=== PATIENT | female | born 1945 | race Caucasian/White ===

== ENCOUNTER 2016-03-27 10:13 | Day surgery (SDC) | payer MEDICARE, OTHER ==
[~2016-03-27] VITALS: Ht 172.7 cm; Wt 97.5 kg
[~2016-03-27 10:13] MED LIST: CALC-697 PO; CYCL10TA9 PO; EST30C; HYDR-700; MED FOR CHOLESTEROL; MELA1TAB16 PO; MELA2.5T PO; MELO7.5O2 PO; NF-ESOM40C PO; PANT40TA2 PO; PNT40TEC PO; PRAV20TA3 PO; SUCR1TAB; SUCR1TAB23 PO; SUCR1TAB36 PO; TRAM50TA2 PO
[2016-03-27] MEDS ORDERED: NS IV 1000 ML 1,000 ML ONE (10:15)
--- OUTSIDE RECORDS SUMMARY | 2016-03-27 10:18 | XMS REPORT | Continuity of Care Document ---
Author Author [facility] Organization [facility] Address Unknown Phone Unavailable Care Team Providers Care Mental Health Orderly Name Role Phone Presley Soria PCP [phone] Source Comments Some departments are not documenting in the electronic medical record. If you do not see the information that you expected, contact Release of Information in the Health Information Management department at [phone] for further assistance in locating additional records.[facility] Active Allergies and Adverse Reactions Allergen Noted Date Severity Reactions Comments Actifed 05/04/2014 PALPITATIONS Hydrocodone 05/04/2014 ITCHING Morphine 05/04/2014 SEE COMMENTS unknown Current Medications Prescription Sig. Disp. Refills Start End Date Status Date sucralfate (CARAFATE) 1 Take 1 g by mouth every 6 Active gram tablet hours. pantoprazole DR Take 40 mg by mouth Active (PROTONIX) 40 mg tablet daily. magnesium chloride (MAG Take 535 mg by mouth Active DELAY) 64 mg tablet daily. melatonin 3 mg tab Take 3 mg by mouth at Active bedtime daily. cyclobenzaprine Take 10 mg by mouth three Active (FLEXERIL) 10 mg tablet times daily as needed for Muscle Cramps. 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) Social History Tobacco Use Types Packs/Day Years Used Date Former Smoker Cigarettes 0.25 10 Started: 03/25/1980 Alcohol Use Drinks/Week oz/Week Comments Yes 0 Standard 0.0 4-6 drinks/year drinks or equivalent Last Filed Vital Signs Vital Sign Reading Time Taken Blood Pressure 125/64 01/06/2016 10:23 AM CDT Pulse 66 01/06/2016 10:23 AM CDT Temperature 36.4 C (97.5 F) 01/06/2016 10:23 AM CDT Respiratory Rate 18 11/14/2015 2:40 PM CDT Height 1.702 m (5' 7.01") 01/06/2016 10:23 AM CDT Weight 97.342 kg (214 lb 9.6 oz) 01/06/2016 10:23 AM CDT Body Mass Index 33.6 01/06/2016 10:23 AM CDT Oxygen Saturation 100% 01/06/2016 10:23 AM CDT Plan of Care Date Type Specialty Providers Description 07/06/2016 Appointment Oncology Janette Levy PA [address] [facility] [address] [place] [address] [phone] (Fax) Health Maintenance Due Date Last Done Comments Hepatitis C Screening 1945 Physical (Comprehensive) 1954 Exam Pertussis Vaccine 1958 Tetanus Vaccine 1964 Breast Cancer Screening 1987 Colorectal Cancer 1997 Screening Shingles Vaccine 2007 Osteoporosis Screening 2012 Prevnar/Pneumovax (#1) 2012 Influenza Vaccine 11/24/2015 Results from Last 3 Months Not on file
--- OUTSIDE RECORDS SUMMARY | 2016-03-27 10:18 | XMS REPORT | Continuity of Care Document ---
Author Author [facility] Organization [facility] Address Unknown Phone Unavailable Care Team Providers Care Refining Equipment Operator Name Role Phone Presley Soria PCP [phone] Source Comments Some departments are not documenting in the electronic medical record. If you do not see the information that you expected, contact Release of Information in the Health Information Management department at [phone] for further assistance in locating additional records.The [...] Description 07/06/2016 Appointment Oncology Janette Levy PA [address] [facility] [address] [place] [address] [phone] (Fax) Health Maintenance Due Date Last Done Comments Hepatitis C Screening 1945 Physical (Comprehensive) 1954 Exam Pertussis Vaccine 1958 Tetanus Vaccine 1964 Breast Cancer Screening 1987 Colorectal Cancer 1997 Screening Shingles Vaccine 2007 Osteoporosis Screening 2012 Prevnar/Pneumovax (#1) 2012 Influenza Vaccine 11/24/2015 Results from Last 3 Months Not on file
[2016-03-27 10:40] VITALS: BP 175/85
[2016-03-27] MEDS ORDERED: NS IV 1000 ML 1,000 ML IV STA (10:42)
[2016-03-27] MEDS ORDERED: HURRICAINE EXT TUBE (BENZOCAINE) XX ONE (10:45)
[2016-03-27] MEDS ORDERED: proPOfol 200 MG/20 ML (DIPRIVAN) VIAL IV ONE (15:48)
[2016-03-27] MEDS ORDERED: MIDAZOLAM 2 MG/2 ML (VERSED) VIAL ONE (15:48)
--- NOTE | 2016-03-27 16:01 | Progress Note-Pre Operative ---
Pre-Operative Progress Note H&P Reviewed The H&P was reviewed, patient examined and no changes noted. Date H&P Reviewed: Mar 27, 2016 Time H&P Reviewed: 16:01 Pre-Operative Diagnosis: gerd, history of fry's RICCARDO RUIZ DO Mar 27, 2016 4:01 pm
--- NOTE | 2016-03-27 16:20 | Discharge Inst-Simple/Standard ---
Discharge Inst-Standard Patient Instructions/Follow Up Plan of Care/Instructions/FU: Follow up with Dr. Wilson in 3 weeks Activity as Tolerated: Yes Discharge Diet: No Restrictions JUAN SULLIVAN APRN Mar 27, 2016 16:20
[2016-03-27] MEDS ORDERED: HURRICAINE EXT TUBE (BENZOCAINE) ONE (16:21)
--- NOTE | 2016-03-27 16:21 | Progress Note-Post Operative ---
Post-Operative Progess Note Pre-Operative Diagnosis gerd, history of fry's Post-Operative Diagnosis antral polyps, fry's esophagus Post-Op Procedure Note Date of Procedure: Mar 27, 2016 Name of Procedure: egd with biopsies of esophagus Procedure Note/Findings see note Anesthesia Type per production supv Estimated blood loss (mL): none Specimen(s) collected esophagus RICCARDO RUIZ DO Mar 27, 2016 4:21 pm
[2016-03-27 16:45] VITALS: BP 136/79
[2016-03-27 17:10] VITALS: BP 154/81
[2016-03-27] MEDS ORDERED: ONDANSETRON 4 MG/2 ML (SDV) Z0FRAN ONE (17:15)
[2016-03-27 18:00] VITALS: BP 164/84
[2016-03-27] MEDS ORDERED: ONDANSETRON 4 MG/2 ML (SDV) Z0FRAN IVP ONE (18:00)
[2016-03-27] MEDS ORDERED: PROMETHAZINE INJ 25 MG/ML (PHENERGAN) AMP IVP ONE (18:00)
[2016-03-27 18:31] VITALS: BP 164/84
--- NOTE | 2016-03-28 09:40 | OPERATIVE REPORT ---
PROCEDURE PHYSICIAN: RICCARDO RUIZ DATE OF PROCEDURE: 03/27/2016 PREOPERATIVE DIAGNOSIS: 1. GERD. 2. History of Means's. POSTOPERATIVE DIAGNOSES: 1. Pyloric polyps. 2. Means's esophagus. PROCEDURE: EGD biopsies of the esophagus. SURGEON: Steve. ANESTHESIA: Per KNEE BOLTER. ESTIMATED BLOOD LOSS: None. COMPLICATIONS: None. INDICATIONS: The patient is a 70-year-old female who had previous wrap for Means's esophagus. The patient had previous biopsy demonstrated Means's esophagus, no dysplasia. The patient understands the risks and benefits of the procedure and wishes to proceed with procedure. Consent was signed on the chart. PROCEDURE: The patient was taken to the endoscopy suite, placed in left lateral recumbent positions. A timeout was performed. The scope was then inserted in the mouth, down the esophagus, stomach and into the duodenum. The duodenum had no polyps, masses, or ulcerations. The scope was slowly retracted back into the pylorus which demonstrated multiple small polyps. The scope was slowly retracted back into the stomach where it was further insufflated. No significant changes to the stomach. The scope was retroflexed noting evidence of a wrap; it looks like there may be slight recurrence of the hiatal hernia. The scope was returned to its normal position slowly withdrawn back to the esophagus. A very short segment of the area that is suggestive of Means's esophagus. Biopsies of this area were obtained. The scope was then slowly retracted back noting no other pathology. The patient tolerated the procedure well without any complications. She was taken to recovery room in stable condition. RECOMMENDATIONS: The patient will continue on current medication regimen. We will consider gastroenterology consultation or would repeat EGD and 1 to 2 years. Job ID: [id number] Dictated Date: 03/27/2016 16:24:46 Operations Vice President Date: 03/28/2016 09:31:56 / tima
== END 2016-03-27 18:30 | disposition home or self-care (01) ==
LOC: SDC 10:13
PROVIDERS: ATTEND Surgery
DX: K21.9 Gastro-esophageal reflux disease without esophagitis (principal); K31.7 Polyp of stomach and duodenum; K29.50 Unspecified chronic gastritis without bleeding

== ENCOUNTER → 2017-06-04 | Outpatient (CLI) | payer MEDICARE ==
--- NOTE | 2017-06-04 19:06 | Diagnostic Imaging Report ---
INDICATION: Digital mammogram bilateral screening. This study was compared to the prior exam of 03/12/16, 03/08/15 and 03/04/14. At this time, there are no current complaints. The current study was also evaluated with a Computer Aided Detection (CAD) system. FINDINGS: There are scattered fibroglandular densities in both breasts which could obscure a lesion. Overall, there does not appear to have been any significant change when compared to the prior exam. No primary or secondary sign of malignancy is noted. IMPRESSION: There is no radiographic evidence for malignancy. ACR BI-RADS Category 1: Negative. Result letter will be mailed to the patient. Note: At least 10% of breast cancer is not imaged by mammography. Dictated by: Dictated on workstation # [id number]
== END ==
LOC: RAD 09:52
PROVIDERS: ATTEND Nurse Practitioner Family
DX: Z12.31 Encounter for screening mammogram for malignant neoplasm of breast (principal)
CPT/HCPCS: 77067

== ENCOUNTER → 2017-09-27 | Outpatient (CLI) | payer MEDICARE, MEDICAID ==
[~2017-09-27] MED LIST changes: +AMOX-358 PO; +APIX5TAB PO; +CELE-63 PO; +GABA-488 PO; -HYDR-700; +HYDR-700 PO; +MELA5TAB14 PO; +MELA5TAB19 PO; +METF500T5 PO; +NITR-65 PO; +NITR0.4T42 SL; +OXYC-529 PO; +PHEN-640 PO; +POTA10TA36 PO
[2017-09-27 10:37] LABS: BUN/CREATININE RATIO 15; CREATININE SERUM 0.86 MG/DL (0.60-1.30); GFR ESTIMATED > 60
--- NOTE | 2017-09-27 12:28 | Diagnostic Imaging Report ---
PROCEDURE: MRI right joint lower extremity without contrast. TECHNIQUE: Multiplanar, multisequence non contrast-enhanced MRI of the right lower extremity was accomplished. INDICATION: Right hip replacement on 07/16/2017. Patient complains of right hip pain extending into the right leg. FINDINGS: Postsurgical changes of right hip arthroplasty are noted. There is a large amount of artifact from the patient's right hip prosthesis, severely compromising evaluation of the right hip. Larger [id number] sequences through the pelvis demonstrate normal marrow signal of the sacrum and left hip. The visualized rami are unremarkable. No definite free pelvic fluid is seen. No mass is identified. IMPRESSION: Severely compromised evaluation of the right hip due to patient's right hip prosthesis creating a large amount of artifact. No acute features seen. Plain films of the right hip could be obtained. Consideration could be given to performance of CT of the right hip if patient's symptoms persist. Dictated by: Dictated on workstation # [id number]
== END ==
LOC: RAD 09:57
PROVIDERS: ATTEND Nurse Practitioner Family
DX: T84.84XA Pain due to internal orthopedic prosthetic devices, implants and grafts, initial encounter (principal)
CPT/HCPCS: 36415; 73721; 82565; 84520

== ENCOUNTER 2017-10-14 00:08 | Inpatient (IN) | payer MEDICARE, MEDICAID ==
[~2017-10-14] VITALS: Ht 172.7 cm; Wt 91.2 kg
[~2017-10-14 00:08] MED LIST changes: -AMOX-358 PO; -APIX5TAB PO; -CELE-63 PO; -GABA-488 PO; -MELA5TAB14 PO; -MELA5TAB19 PO; -METF500T5 PO; -NITR-65 PO; -NITR0.4T42 SL; -OXYC-529 PO; -PHEN-640 PO; -POTA10TA36 PO
--- OUTSIDE RECORDS SUMMARY | 2017-10-14 00:15 | XMS REPORT ---
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 Active 237883544 Problem Dyshidrotic eczema L30.1 Active 566767453 Problem Type 2 diabetes mellitus without complication, without long-term current use of insulin E11.9 Active 705508459 Problem Body mass index (BMI) of 30.0-30.9 in adult Z68.30 Active 610788239 Problem CAD (coronary artery disease) I25.10 Active 79838584 Problem GERD (gastroesophageal reflux disease) K21.9 Active 911601491 Problem Sciatica of right side M54.31 Active 83383167 Problem Trochanteric bursitis of right hip M70.61 Active 411182400520902 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 726808364 Problem Syndrome X, 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 Active 915170870 Problem Seborrheic keratoses L82.1 Active 252283378 Problem Hyperlipidemia E78.5 Active 60495890 ALLERGIES Substance Reaction Event Type Date Status Pentazocine-Naloxone itching Drug Allergy May, Active Cipro Unknown Drug Allergy May, Active Actifed palpitations Drug Allergy May, Active Oxycodone unable to take more than 1 Drug Allergy May, Active Morphine Abdominal pain with IV form Drug Allergy May, Active ENCOUNTERS Encounter Location Date Diagnosis [facility] [address], [place] [address] Oct, [place] [address] [place] [id number] [place] [address]127[address] 4[address] Sep, [facility] [address], [place] [address] Sep, Pain in right hip M25.551 [place] [address] [place] [id number] [place] [address] 08722- 1311 Sep, [place] [address] [address] [id number] [place] [address] 62389- 6346 Aug, Acute cystitis with hematuria N30.01 [place] [address] [address] [id number] [place] [address] 15820- 8293 Aug, Type 2 diabetes mellitus without complication, without long- term current use of insulin E11.9 ; Type 2 diabetes mellitus with diabetic neuropathic arthropathy, 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 ; Hyperlipidemia E78.5 ; CAD (coronary artery disease) I25.10 ; 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 ; Other obesity due to excess calories E66.09 ; Body mass index (BMI) of 30.0-30.9 in adult Z68.30 ; Syndrome X, 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 ; Pain in right hip M25.551 ; Anxiety F41.9 ; Angina pectoris I20.9 and Vaginal cancer C52 [place] [address], [place] [address] Aug, [place] [address], [place] [address] Aug, [place] [address] [place] [id number] [place] [address] 97591- 8757 Aug, Vaginal candidiasis B37.3 and Vaginal itching L29.8 [place] [address], [place] [address] 229[address] Aug, Dysuria R30.0 and Acute cystitis with hematuria N30.01 [place] [address] [place] [address] 56559- 1719 July, [place] [address] [address]- 3027 July, [place] [address] [address] [id number] [place] [address] 07244- 5501 July, [place] [address] [address]- 0627 Jun, [place] [address] [address] [id number] [place] [address] 97694- 4534 Jun, [facility] [place] [address] [address] Jun, Right anterior knee pain M25.561 [place] [address] 06139- 3782 Jun, [place] [address] [address] [id number] [place] [address] 52236- 9482 Jun, Type 2 diabetes mellitus with diabetic neuropathic arthropathy, 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 [place] [address] [address] [id number] [place] [address] 06576- 1908 May, Acute non-recurrent maxillary sinusitis J01.00 and Acute suppurative otitis media of left ear without spontaneous rupture of tympanic membrane, recurrence not specified H66.002 [facility] [place] [address] [id number] [place] [address] 38234 -8404 May, Viral upper respiratory tract infection J06.9 [place] [address] [address] [id number] [place] [address] 49849- 7422 Apr, [place] [address] [address] [id number] [place] [address] 86112- 3671 Apr, Type 2 diabetes mellitus with diabetic neuropathic arthropathy, 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 ; Hyperlipidemia E78.5 ; Seborrheic keratosis L82.1 ; Angina pectoris I20.9 ; 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 ; Polyneuropathy G62.9 ; Screening breast examination Z12.31 ; GERD ( gastroesophageal reflux disease) K21.9 ; Vaginal cancer C52 ; Trochanteric bursitis of right hip M70.61 ; Sciatica of right side M54.31 ; Other obesity due to excess calories E66.09 and Body mass index (BMI) of 32.0-32.9 in adult Z68.[address] [address]35- 8061 09 Apr, 2017 Type 2 diabetes mellitus without complication, without long- term current use of insulin E11.[address] 48738- 8855 02 Apr, 2017 Papule R23.8 and Actinic keratosis L57.0 [facility] [address] [address] 11 Mar, 2017 Cough R05 ; Encounter for immunization Z23 ; Other viral agents as the cause of diseases classified elsewhere B97.89 and Acute upper respiratory infection, unspecified J06.[address] 91316- 7891 Jan, Migraine without status migrainosus, not intractable, unspecified migraine type G43.[address] 80141- 4325 Sep, [address] 02777- 1639 Sep, Type 2 diabetes mellitus without complication, without long- term current use of insulin E11.9 ; Dehydration, mild E86.0 and Dyshidrotic eczema L30.[address] 32856- 2235 Sep, [address] 43039- 4893 Aug, Migraine without status migrainosus, not intractable, unspecified migraine type G43.909 [place] [address] [id number] [place] [address] 05674- 2681 July, [address] 53888- 0414 Jun, Medicare annual wellness visit, subsequent Z00.00 ; Hyperlipidemia E78.5 ; CAD (coronary artery disease) I25.10 and Vaginal cancer C52 [address] 55715- 2204 Jun, Sciatica M54.30 ; Pain in right hip M25.551 ; Dyshidrotic eczema L30.1 ; Candidiasis of breast B37.89 ; Right anterior knee pain M25.561 ; Hyperlipidemia E78.5 and Encounter for immunization Z23 [address] 12342- 5130 May, Ganglion cyst of joint of finger of left hand M67.[address] 24903- 0060 May, Migraine without status migrainosus, not intractable, unspecified migraine type G43.[address] 45783- 9217 May, [address] 33099- 2585 Apr, Skin lesion of back L98.9 and Encounter for immunization Z23 [address] 66744- 0828 Mar, Candidal dermatitis B37.2 ; Seborrheic keratoses L82.1 ; Polyneuropathy G62.9 and Dysuria R30.0 [facility] [address] [place] [id number] [place] [id number] Mar, Dental examination Z01.[address] 36970- 6117 Mar, Neuritis M79.2 [place] [address] [place] [address] 77652- 8420 Feb, Drug allergy Z88.9 [place] [address] [address] [id number] [place] [address] 77678- 6370 Feb, Dysuria R30.0 [place] [address] [address] [id number] [place] [address] 16021- 0866 Feb, Acute cystitis with hematuria N30.01 [place] [address] [address] [id number] [place] [address] 69193- 4672 Feb, Dysuria R30.0 and Acute cystitis with hematuria N30.01 [place] [address] [id number] [place] [address] 96479- 2997 Feb, Angina pectoris I20.9 ; Finger pain, left M79.645 ; 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 ; GERD (gastroesophageal reflux disease) K21.9 ; Pain in right hip M25.551 ; Pain in left hip M25.552 and Encounter for screening mammogram for breast cancer Z12.31 [place] [address] [address] [id number] [place] [address] 80033- 0911 Dec, Right hip pain M25.551 [place] [address] [address] [id number] [place] [address] 88452- 1168 13 Nov, 2015 GERD (gastroesophageal reflux disease) K21.9 ; Vaginal cancer C52 ; Pain in right hip M25.551 and Pain in left hip M25.552 [place] [address] [address] [id number] [place] [address] 72144- 4955 Oct, Squamous cell carcinoma C80.1 [place] [id number] [place] [address] 30651- 9953 Oct, Skin lesions L98.9 and Encounter for well woman exam Z01.419 [place] [address] [address] [id number] [place] [address] 66688- 0161 Oct, [place] [address] [address] [id number] [place] [address] 19399- 8244 Sep, [facility] [place] [address] [address]27 Aug, Atopic dermatitis, unspecified type L20.9 and Tick bite, initial encounter W57.XXXA [facility] [address] [address] -8705 Aug, [place] [address] 23850- 3166 July, Pre-procedural laboratory examination Z01.[address] 76555- 1691 July, Migraine without status migrainosus, not intractable, unspecified migraine type G43.909 ; Barretts esophagus without dysplasia K22.70 ; Sciatic nerve pain, left M54.32 and Localized swelling, mass and lump, head R22.0 [place] [address] 15099- 8100 May, [place] [address] 86992- 4083 May, [facility] [place] [address] 03393 -7649 May, Unspecified fall, initial encounter W19.XXXA ; Unspecified place in unspecified non-institutional (private) residence as the place of occurrence of the external cause Y92.009 ; Mid back pain M54.9 ; Rib pain on right side R07.81 ; Buttock pain M79.1 and Post-traumatic headache, unspecified , not intractable G44.[address] 59496- 5490 10 Apr, 2015 Hypercholesteremia E78.0 ; Chest discomfort R07.89 ; 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 and History of sciatica Z86.[address] 68526- 8717 Mar, Calculus of left kidney N20.0 ; Hyperlipidemia E78.5 ; Degeneration disease of medial meniscus, 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 ; Right knee pain M25.561 ; Sciatica M54.30 ; GERD (gastroesophageal reflux disease) K21.9 and 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 [place] [address] 55178- 7100 Mar, [place] [address] 47791- 2188 Mar, [place] [address] 88747- 9063 Mar, [address] 94593- 1154 Mar, Plantar fasciitis M72.[address] 27032- 0850 Mar, Degeneration disease of medial meniscus, 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 ; Right knee pain M25.561 ; Sciatica M54.30 ; GERD ( gastroesophageal reflux disease) K21.9 and 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 [place] [address] 54192- 2772 Feb, [address] 48590- 6900 Feb, Osteopenia M85.[address] 90084- 7733 15 Feb, 2015 Screening for malignant neoplasm of breast Z12.39 and Encounter for screening mammogram for malignant neoplasm of breast Z12.[address] 03942- 7396 Feb, Hip pain M25.[address] 49244- 1940 Feb, [place] [address] 72516- 9366 Feb, Arthralgia of right hip M25.551 ; Sciatica M54.30 ; GERD ( gastroesophageal reflux disease) K21.9 ; 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 ; CAD ( coronary artery disease) I25.10 and Hyperlipidemia 272.4 [facility] [address] [address] [id number] [place] [address] 34624 -3629 Jan, Pharyngitis J02.9 ; Body aches R52 ; Cough R05 and Sinusitis J32.9 [facility] [address] 91307- 1119 Nov, Contusion of foot 924.20 and Plantar fasciitis 728.71 [facility] [address] [id number] Oct, Dental examination V72.2 [facility] [address] 35677- 7859 Oct, [facility] [address] 15930- 0997 Oct, Coronary artery disease 414.00 [facility] [address] 45028- 3840 Oct, Zoster 053.9 [facility] [address] [place] [id number] [place] [address] 69912- 0808 Sep, Pain in joint, ankle and foot 719.47 ; 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.85 ; Cervicalgia 723.1 ; Pain in joint, shoulder region 719.41 ; Coronary artery disease 414.00 and Need for shingles vaccine V04.89 [facility] [address] [place] [id number] [place] [address] [id number] Sep, Dental examination V72.2 [facility] [address] 30172- 0343 Sep, [facility] [address] 28302- 2193 Aug, [facility] [address] [id number] [id number] July, Dental examination V72.2 [facility] [address] [address] [id number] [place] [address] 71806- 4826 July, Cough 786.2 [facility] [address], [place] [address]- 8341 July, Sinusitis 473.9 and Means esophagus 530.85 [facility] [address], [place] [address]- 9491 Jun, [facility] [address] [id number] [place] [address] 49751- 1506 Jun, [facility] [id number] [address]- 8333 May, [facility] [id number] [place] [address] 92085- 6470 May, [facility] [address], [place] [address]- 4725 May, [facility] [address] [place] [address] 67447- 0016 May, [facility] [address], [place] [address]- 4761 May, [facility] [address], [place] [address]- 8682 May, [facility] [address], [place] [address]- 3006 May, [facility] [address], [place] [address]- 3420 May, [facility] [address], [place] [address]- 2566 Apr, [facility] [address], [place] [address]- 9186 Apr, [facility] [place] [facility] [address] [id number] [place] [address]- 6476 Apr, [facility] [place] [facility] [address] [id number] [place] [address]- 0343 Mar, [facility] [place] [facility] [address] [id number] [place] [address]- 7372 Mar, [facility] [place] [facility] [address] [id number] [place] [address]- 0378 Mar, [facility] [place] [facility] [address] [id number] [place] [address]- 4122 Mar, [facility] [place] [facility] [address] [id number] [place] [address]- 3206 Feb, [facility] [place] [facility] [address] [id number] [place] [address]- 7662 Feb, [facility] [place] [facility] [address] [id number] [place] [address]- 6718 Feb, [facility] [place] [facility] [address] [id number] [place] [address]- 2644 Feb, [facility] [place] [facility] [address] [id number] [place] [address]- 5788 Feb, [facility] [place] [facility] [address] [id number] [place] [address]- 7548 Feb, [facility] [place] [facility] [address] [id number] [place] [address]- 3394 Feb, [facility] [place] [facility] [address] [id number] [place] [address]- 0246 Jan, [facility] [place] [facility] [address] [id number] [place] [address]- 5076 Jan, [facility] [place] [facility] [address] [id number] [place] [address]- 7252 Jan, [facility] [place] [facility] [address] [id number] [place] [address]- 1650 Jan, [facility] [place] [facility] [address] [id number] [place] [address]- 0745 30 Dec, 2013 [facility] [place] [facility] [address] [id number] [place] [address]- 3147 30 Dec, 2013 [facility] [place] [facility] [address] [id number] [place] [address]- 0555 Dec, [facility] [place] [facility] [address] [id number] [place] [address]- 0404 Dec, [facility] [place] [facility] [address] [id number] [place] [address]- 9132 Dec, [facility] [place] [facility] [address] [id number] [place] [address]- 6051 Dec, [facility] [place] [facility] [address] [id number] [place] [address]- 7938 24 Nov, 2013 [facility] [place] [facility] [address] [id number] [place] [address]- 6734 23 Nov, 2013 [facility] [place] [facility] [address] [id number] [place] [address]- 6720 23 Nov, 2013 [facility] [place] [facility] [address] [id number] [place] [address]- 9246 17 Nov, 2013 [facility] [place] [facility] [address] [id number] [place] [address]- 0273 17 Nov, 2013 [facility] [place] [facility] [address] [id number] [place] [address]- 5219 05 Nov, 2013 [facility] [place] [facility] [address] [id number] [place] [address]- 3597 05 Nov, 2013 [facility] [place] [facility] [address] [id number] [place] [address]- 0681 Oct, [facility] [place] [facility] [address] [id number] [place] [address]- 1135 Oct, [facility] [place] [facility] [address] [id number] [facility] [place] [address]- 6463 Oct, [facility] [place] [facility] [address] [id number] [place] [address]- 1841 Oct, [facility] [place] [facility] [address] [id number] [place] [address]- 1753 Oct, [facility] [place] [facility] [address] [id number] [place] [address]- 3635 Oct, [facility] [place] [facility] [address] [id number] [place] [address]- 7534 Oct, [facility] [place] [facility] [address] [id number] [place] [address]- 6877 Oct, [facility] [place] [facility] [address] [id number] [place] [address]- 1702 Oct, [facility] [place] [facility] [address] [id number] [place] [address]- 4143 Sep, [facility] [place] [facility] [address] [id number] [place] [address]- 7066 Sep, [facility] [place] [facility] [address] [id number] [place] [address]- 3567 Sep, [facility] [place] [facility] [address] [id number] [place] [address]- 1249 Sep, [facility] [place] [facility] [address] [id number] [place] [address]- 3408 Sep, [facility] [place] [facility] [address] [id number] [place] [address]- 9157 Sep, [facility] [place] [facility] [address] [id number] [place] [address]- 5591 Sep, [facility] [place] [facility] [address] [id number] [place] [address]- 3151 Sep, [facility] [place] [facility] [address] [id number] [place] [address]- 1703 Sep, [facility] [place] [facility] [address] [id number] [place] [address]- 7383 Aug, [facility] [place] [facility] [address] [id number] [place] [address]- 7975 Aug, [facility] [place] [facility] [address] [id number] [place] [address]- 8543 Jun, [facility] [place] [facility] [address] [id number] [place] [address]- 0352 Jun, [facility] [place] [facility] [address] [id number] [place] [address]- 6771 May, [facility] [place] [facility] [address] [id number] [place] [address]- 9795 May, [facility] [place] [facility] [address] [id number] [place] [address]- 1809 Apr, [facility] [place] [facility] [address] [id number] [place] [address]- 7431 Apr, [facility] [place] [facility] [address] [id number] [place] [address]- 0012 Apr, [facility] [place] [facility] [address] [id number] [place] [address]- 6722 Apr, [facility] [place] [facility] [address] [id number], [place] [address]- 2688 Feb, [facility] [place] [facility] [address] [id number], [place] [address]- 3569 Feb, [facility] [place] [facility] [address] [id number] [place] [address]- 0393 Jan, [facility] [place] [facility] [address] [id number] [place] [address]- 2782 Jan, [facility] [place] [facility] [address] [id number] [place] [address]- 4969 Nov, [facility] [place] [facility] [address] [id number] [place] [address]- 8015 Sep, [facility] [address] [id number] [place] [address]- 5968 Sep, [facility] [address] [id number] [place] [address]- 8982 Aug, [facility] [address] [id number] [place] [address]- 4591 Aug, [facility] [address] [id number] [place] [address]- 8769 Aug, [facility] [address] [id number] [place] [address]- 8164 July, [facility] [address] [id number] [place] [address]- 4252 July, [facility] [address] [id number] [place] [address]- 5634 July, [facility] [address] [id number] [place] [address]- 5882 May, [facility] [address] [id number] [place] [address]- 8139 May, [facility] [address] [id number] [place] [address]- 7015 Jan, [facility] [address] [id number] [place] [address]- 9106 Jan, [facility] [address] [id number] [place] [address]- 4120 Jan, [facility] [place] [facility] [address] [id number] [place] [address]- 8519 Jan, [facility] [address] [id number] [place] [address]- 3123 Jan, [facility] [address] [id number] [place] [address] Jan, [facility] [id number] [address] Jan, [facility] [id number], [place] [address] Jan, [facility] [id number], [place] [address] Dec, [facility] [id number] [place] [id number] Dec, [facility] [id number], [place] [address] Aug, [facility] [id number] [place] [id number] July, [facility] [id number] [address] Jun, [facility] [id number] [place] [address] May, [facility] [id number], [place] [address] May, [facility] [id number], [place] [address] May, [facility] [id number], [place] [address] Jun, IMMUNIZATIONS No Known Immunizations SOCIAL HISTORY Never Assessed REASON FOR VISIT Cough x2 days. OTC medications not helping cough - nothing taken today. christie PLAN OF CARE Activity Details Follow Up prn Reason: VITAL SIGNS Height 68 in 2017-06-01 Weight 208.4 lbs 2017-06-01 Temperature 98.3 degrees Fahrenheit 2017-06-01 Heart Rate 84 bpm 2017-06-01 Respiratory Rate 16 2017-06-01 BMI 31.68 kg/m2 2017-06-01 Blood pressure systolic 134 mmHg 2017-06-01 Blood pressure diastolic 82 mmHg 2017-06-01 MEDICATIONS Medication Instructions Dosage Frequency Start Date End Date Duration Status Cyclobenzaprine HCl 10 mg 1 tablet Active Melatonin 5 MG Orally Once a day 1 tablet at bedtime as needed with food 24h Not-Taking Calcium Magnesium Active Azithromycin 250 MG Orally Once a day 2 tablets on the first day, then 1 tablet daily for 4 days 24h May, May, 5 day(s) Active Cetirizine HCl Active Cinnamon Orally 2 times a day 12h Active Centrum Silver 50+Women - Active Triamcinolone Acetonide 0.1 % Externally Twice a day prn apply thin layer to hands Jun, 10 days Not-Taking Metformin HCl 500 mg Orally Once a day with evening meal 1 tablet with meals July, Active Nitrostat 0.4 MG DISSOLVE ONE TABLET SUBLINGUALLY NEEDED FOR CHEST PAIN ; MAY REPEAT TWO TIMES EVERY 5 MINUTES THEN GO TO ER Active Vitamin D3 Ultra Strength 5000 UNIT Orally twice a day 1 capsule 12h Active B Complex Orally Once a day 24h Active [place] 3-6-9 Active Cough Syrup Active Pravastatin Sodium 20 MG Orally Once a day 1 tablet 24h Oct, Active Percocet 5-325 MG Orally 2 times a day as needed 1 tablet as needed Jan, 28 days Active HydrOXYzine HCl 25 MG Orally every 8 hrs 1 tablet as needed 8h Oct, 90 days Active Glucocard Expression Test 1 subcutaneously 2 times a day test 2 times per day 12h July, 90 days Active Lyrica 50 mg Orally Once a day 1 capsule 24h 24 Mar, 2016 21 days Not- Taking Carafate 1 GM TAKE ONE TABLET BY MOUTH FOUR TIMES DAILY 30 Not- Taking Pantoprazole Sodium 40 MG TAKE ONE TABLET BY MOUTH ONCE DAILY 30 Active RESULTS No Results PROCEDURES Procedure Date Ordered Result Body Site [facility] VISIT ESTABLISHED PATIENT June 01, 2017 INSTRUCTIONS MEDICATIONS ADMINISTERED No Known Medications MEDICAL (GENERAL) HISTORY Type Description Date Medical History hearing loss Medical History angina Medical History Barretts esophagus Medical History peptic ulcer disease Medical History gallstones Medical History irritable bowel syndrome Medical History kidney stones Medical History hyperlipidemia Medical History diabetes mellitus--controlled by diet Medical History Arthritis Medical History migraine headaches Medical History depression Medical History asthma--as a child Medical History Sciatica Medical History Contact dermatitis and other eczema, due to unspecified cause Medical History Inflamed seborrheic keratosis Medical History Coronary artery disease Medical History EGD w/ pyloric polyps noted 03/2016 Medical History Bone spur Medical History Degeneration disease of medial meniscus, unspecified laterality Medical History Hip replacement on July 16, 2017 Surgical History sinus surgery Surgical History tonsillectomy Surgical History appendectomy 1971 Surgical History partial hysterectomy--uterine fibroids 1989 Surgical History tubal ligation Surgical History section 1977 Surgical History orthopedic surgery--Right thumb Surgical History cholecystectomy 1996 Surgical History arthroscopic knee surgery Surgical History lung surgery - PE and histoplasmosis Surgical History heart cath 04/2015; no stents Surgical History right shoulder Surgical History EGD 2016 Surgical History Hip Surgery July 16, 20172017 Hospitalization History fell on ice and broke left arm-ER visit 02/2013 Hospitalization History Hip Surgery 07/16/2017
--- OUTSIDE RECORDS SUMMARY | 2017-10-14 00:15 | XMS REPORT | Clinical Summary ---
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 If you do not see the information that you expected, contact Release of Information in the Health Information Management department at [phone] for further assistance in locating additional records.[facility] Allergies Active Allergy Reactions Severity Noted Date Comments Triprolidine-Pseudoephedr PALPITATIONS 05/04/2014 ine Hydrocodone ITCHING 05/04/2014 Morphine SEE COMMENTS 05/04/2014 unknown Current Medications Prescription Sig. Disp. Refills [...] hours as needed for 16 tablet Pain pravastatin (PRAVACHOL) Take 20 mg by mouth at Active 20 mg tablet bedtime daily. hydrOXYzine (ATARAX) 10 Take 25 mg by mouth as Active mg tablet Needed for Itching (ONLY NEEDED, WHEN TAKING PAIN MEDICATION). triamcinolone acetonide Apply topically to Active (KENALOG) 0.1 % topical affected area twice ointment daily. 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 Resolved Problems Problem Noted Date Resolved Date Wound dehiscence 12/23/2015 07/06/2016 Abdominal pain 05/05/2014 12/23/2015 Family History * Patient is adopted Medical History Relation Name Comments Cancer Maternal Grandmother Cancer Maternal Uncle COPD Mother Relation Name Status Comments Maternal Grandmother Maternal Uncle Mother Social History Tobacco Use Types Packs/Day Years Used Date Former Smoker Cigarettes 0.25 10 Started: 03/25/1980 Alcohol Use Drinks/Week oz/Week Comments Yes 0 Standard 0.0 4-6 drinks/year drinks or equivalent Sex Assigned at Date Recorded Not on file Last Filed Vital Signs Vital Sign Reading Time Taken Blood Pressure 147/88 01/07/2017 2:47 PM CDT Pulse 74 01/07/2017 2:47 PM CDT Temperature 36.8 C (98.2 F) 01/07/2017 2:47 PM CDT Respiratory Rate 13 01/07/2017 2:47 PM CDT Oxygen Saturation 98% 01/07/2017 2:47 PM CDT Inhaled Oxygen - - Concentration Weight 94.8 kg (209 lb) 01/07/2017 2:47 PM CDT Height 170.2 cm (5' 7.01") 01/07/2017 2:47 PM CDT Body Mass Index 32.72 01/07/2017 2:47 PM CDT Plan of Treatment Health Maintenance Due Date Last Done Comments HEPATITIS C SCREENING 1945 PHYSICAL (COMPREHENSIVE) 1954 EXAM PERTUSSIS VACCINE 1958 TETANUS VACCINE 1964 BREAST CANCER SCREENING 1987 COLORECTAL CANCER 1997 SCREENING SHINGLES RECOMBINANT 1997 VACCINE (1 of 2) OSTEOPOROSIS SCREENING 2012 PNEUMONIA (PCV13/PPSV23) 2012 VACCINES (1 of 2 - PCV13) INFLUENZA VACCINE 12/23/2017 Results Not on filefrom Last 3 Months
--- OUTSIDE RECORDS SUMMARY | 2017-10-14 00:16 | XMS REPORT ---
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 Phone MICHAEL HILL CP Unavailable Allergies No Known Allergies Problems Problem Type Condition ICD-9 Code Onset Dates Condition Status Problem Pain in joint, upper arm 719.42 Active Problem Unspecified breast screening V76.10 Active Problem Other atopic dermatitis and related conditions 691.8 Active Problem Pain in joint, shoulder region 719.41 Active Problem Unspecified myalgia and myositis 729.1 Active Problem Sprain and strain of unspecified site of foot 845.10 Active Problem Other localized visual field defect 368.44 Active Problem Pain in joint, pelvic region and thigh 719.45 Active Problem Emans's esophagus 530.85 Active Problem Acute bronchitis 466.0 Active Problem Special screening for malignant neoplasms, colon V76.51 Active Problem Pain in joint, lower leg 719.46 Active Problem Abdominal pain, unspecified site 789.00 Active Problem Calcaneal spur 726.73 Active Problem Acute sinusitis, unspecified 461.9 Active Problem Unspecified renal failure 586 Active Problem Fall resulting in striking against other object E888.1 Active Problem Unspecified disorder of skin and subcutaneous tissue 709.9 Active Problem Urinary tract infection, site not specified 599.0 Active Problem Other disorder of coccyx 724.79 Active Problem Enthesopathy of hip region 726.5 Active Problem Cervicalgia 723.1 Active Problem Diarrhea 787.91 Active Problem Other and unspecified noninfectious gastroenteritis and colitis 558.9 Active Problem Sciatica 724.3 Active Problem Esophageal reflux 530.81 Active Problem Routine gynecological examination V72.31 Active Problem Insomnia, unspecified 780.52 Active Problem Unspecified symptom associated with female genital organs 625.9 Active Problem Contact dermatitis and other eczema, due to unspecified cause 692.9 Active Assessment Dental examination V72.2 Active Problem Acute pharyngitis 462 Active Problem Special screening for osteoporosis V82.81 Active Problem Inflamed seborrheic keratosis 702.11 Active Problem Cough 786.2 Active Problem Postnasal drip 784.91 Active Problem Pain in joint, ankle and foot 719.47 Active Problem Need for prophylactic vaccination and inoculation, Influenza V04.81 Active Medications No Known Medications Procedures Procedure Coding System Code Date PRDONTAL SCAL&ROOT PLAN 1-3 TEETH CPT-4 D4342 October 11, 2014 PRDONTAL SCAL&ROOT PLAN 1-3 TEETH CPT-4 D4342 October 11, 2014 Results No Known Results Summary Purpose [employer]Clinical[employer] Submission
--- OUTSIDE RECORDS SUMMARY | 2017-10-14 00:16 | XMS REPORT ---
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 Active 084099958 Problem Polyneuropathy G62.9 Active 31019205 Problem Angina pectoris I20.9 Active 280168109 Problem Body mass index (BMI) of 32.0-32.9 in adult Z68.32 Active 119691833 Problem Dyshidrotic eczema L30.1 Active 790345374 Problem Trochanteric bursitis of right hip M70.61 Active [id number] 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 920116129 Problem CAD (coronary artery disease) I25.10 Active 17479317 Problem Seborrheic keratoses L82.1 Active 188335266 Problem GERD (gastroesophageal reflux disease) K21.9 Active 045241923 Problem Sciatica of right side M54.31 Active 97603755 ALLERGIES Substance Reaction Event Type Date Status Pentazocine-Naloxone itching Drug Allergy Sep, Active Cipro Unknown Drug Allergy Sep, Active Actifed palpitations Drug Allergy Sep, Active Oxycodone unable to take more than 1 Drug Allergy Sep, Active Morphine Abdominal pain with IV form Drug Allergy Sep, Active ENCOUNTERS Encounter Location Date Diagnosis [facility] [address] [facility] [id number] [address] May, Acute non-recurrent maxillary sinusitis J01.00 and Acute suppurative otitis media of left ear without spontaneous rupture of tympanic membrane, recurrence not specified H66.002 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 ; Polyneuropathy G62.9 ; Screening breast examination Z12.31 ; GERD ( gastroesophageal reflux disease) K21.9 ; Vaginal cancer C52 ; Trochanteric bursitis of right hip M70.61 ; Sciatica of right side M54.31 ; Other obesity due to excess calories E66.09 and Body mass index (BMI) of 32.0-32.9 in adult Z68.32 [place] [address] [address]23- 3[address] 09 Apr, 2017 Type 2 diabetes mellitus without complication, without long- term current use of insulin E11.9 [place] [address] [place] [id number] [place] [address] 10086- 9782 02 Apr, 2017 Papule R23.8 and Actinic keratosis L57.0 [facility] [id number] [place] [address] 18313 -0425 11 Mar, 2017 Cough R05 ; Encounter for immunization Z23 ; Other viral agents as the cause of diseases classified elsewhere B97.89 and Acute upper respiratory infection, unspecified J06.9 [place] [address] [place] [id number] [place] [address] 70112- 3295 14 Jan, 2017 Migraine without status migrainosus, not intractable, unspecified migraine type G43.909 [place] [address] [place] [id number] [place] [address] 63376- 3233 Sep, [address] [address]- [address]34 Sep, Type 2 diabetes mellitus without complication, without long- term current use of insulin E11.9 ; Dehydration, mild E86.0 and Dyshidrotic eczema L30.[address] [address]- 2261 Sep, [address] 17578- 4498 Aug, Migraine without status migrainosus, not intractable, unspecified migraine type G43.909 [place] [id number] [place] [address] 68778- 5671 July, [address] 36586- 7637 Jun, Medicare annual wellness visit, subsequent Z00.00 ; Hyperlipidemia E78.5 ; CAD (coronary artery disease) I25.10 and Vaginal cancer C52 [place] [id number] [place] [address] 23807- 7839 Jun, Sciatica M54.30 ; Pain in right hip M25.551 ; Dyshidrotic eczema L30.1 ; Candidiasis of breast B37.89 ; Right anterior knee pain M25.561 ; Hyperlipidemia E78.5 and Encounter for immunization Z23 [place] [id number] [place] [address] 11844- 9428 May, Ganglion cyst of joint of finger of left hand M67.[address] 28959- 4089 May, Migraine without status migrainosus, not intractable, unspecified migraine type G43.909 [place] [id number] [place] [address] 16653- 1565 May, [place] [id number] [place] [address] 06707- 1746 09 Apr, 2016 Skin lesion of back L98.9 and Encounter for immunization Z23 [place] [address] [place] [id number] [place] [address] 22646- 7789 Mar, Candidal dermatitis B37.2 ; Seborrheic keratoses L82.1 ; Polyneuropathy G62.9 and Dysuria R30.0 [facility] [id number] [place] [address] [id number] Mar, Dental examination Z01.20 [place] [address] 32716- 7886 Mar, Neuritis M79.2 [place] [address] 70488- 3436 30 Feb, 2016 Drug allergy Z88.9 [place] [address] 29370- 2889 Feb, Dysuria R30.0 [place] [address] 33466- 5821 Feb, Acute cystitis with hematuria N30.01 [place] [address] 98160- 7543 Feb, Dysuria R30.0 and Acute cystitis with hematuria N30.01 [place] [address] [place] [id number] [place] [address] 87588- 0991 Feb, Angina pectoris I20.9 ; Finger pain, left M79.645 ; 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 ; GERD (gastroesophageal reflux disease) K21.9 ; Pain in right hip M25.551 ; Pain in left hip M25.552 and Encounter for screening mammogram for breast cancer Z12.31 [place] [address] [place] [address] [id number] [place] [address] 57715- 5156 Dec, Right hip pain M25.551 [place] [address] [place] [id number] [place] [address] 05719- 2805 Nov, GERD (gastroesophageal reflux disease) K21.9 ; Vaginal cancer C52 ; Pain in right hip M25.551 and Pain in left hip M25.552 [place] [address] 03318- 3133 Oct, Squamous cell carcinoma C80.1 [place] [address] 10639- 1410 Oct, Skin lesions L98.9 and Encounter for well woman exam Z01.419 [place] [address] 30125- 5225 Oct, [place] [address] 44582- 1180 Sep, [facility] [place] [address] 0[address]3433 Aug, Atopic dermatitis, unspecified type L20.9 and Tick bite, initial encounter W57.XXXA [facility] [address] [address] Aug, [address] 81542- 6671 July, Pre-procedural laboratory examination Z01.812 [place] [address] 34263- 8622 July, Migraine without status migrainosus, not intractable, unspecified migraine type G43.909 ; Barretts esophagus without dysplasia K22.70 ; Sciatic nerve pain, left M54.32 and Localized swelling, mass and lump, head R22.0 [place] [address] 40357- 5954 May, [place] [address] 33767- 9182 May, [facility] [place] [address] 71215 -1361 May, Unspecified fall, initial encounter W19.XXXA ; Unspecified place in unspecified non-institutional (private) residence as the place of occurrence of the external cause Y92.009 ; Mid back pain M54.9 ; Rib pain on right side R07.81 ; Buttock pain M79.1 and Post-traumatic headache, unspecified , not intractable G44.309 [place] [address] 19152- 6878 Apr, Hypercholesteremia E78.0 ; Chest discomfort R07.89 ; 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 and History of sciatica Z86.69 [place] [address] 61090- 7048 Mar, Hyperlipidemia E78.5 ; Calculus of left kidney N20.0 ; Degeneration disease of medial meniscus, 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 ; Right knee pain M25.561 ; Sciatica M54.30 ; GERD (gastroesophageal reflux disease) K21.9 and 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 [place] [address] 82591- 1727 Mar, [place] [address] 65848- 9778 Mar, [place] [address] 39517- 3065 Mar, [place] [address] 15420- 8606 Mar, Plantar fasciitis M72.2 [place] [address] 93636- 4991 Mar, Degeneration disease of medial meniscus, 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 ; Right knee pain M25.561 ; Sciatica M54.30 ; GERD ( gastroesophageal reflux disease) K21.9 and 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 [place] [address] 93216- 3136 Feb, [place] [address] [place] [id number] [place] [address] 86642- 5054 16 Feb, 2015 Osteopenia M85.80 [place] [address] 78494- 8645 15 Feb, 2015 Screening for malignant neoplasm of breast Z12.39 and Encounter for screening mammogram for malignant neoplasm of breast Z12.[address] 09596- 9897 Feb, Hip pain M25.559 [place] [address] 46543- 1540 Feb, [address] 23968- 2740 Feb, Arthralgia of right hip M25.551 ; Sciatica M54.30 ; GERD ( gastroesophageal reflux disease) K21.9 ; 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 ; CAD ( coronary artery disease) I25.10 and Hyperlipidemia 272.4 [facility] [id number] [place] [address] 28177 -8451 Jan, Pharyngitis J02.9 ; Body aches R52 ; Cough R05 and Sinusitis J32.9 [place] [address] [place] [id number] [place] [address] 16244- 5685 Nov, Contusion of foot 924.20 and Plantar fasciitis 728.71 [facility] [id number] [place] [address] [id number] Oct, Dental examination V72.2 [place] [address] [place] [id number] [place] [address] 04817- 7687 Oct, [place] [address] 04515- 9410 Oct, Coronary artery disease 414.00 [place] [address] 85900- 9666 Oct, Zoster 053.9 [place] [address] [address] Sep, Pain in joint, ankle and foot 719.47 ; Fry's esophagus 530.85 ; Cervicalgia 723.1 ; Pain in joint, shoulder region 719.41 ; Coronary artery disease 414.00 and Need for shingles vaccine V04.89 [facility] [address] [id number] Sep, Dental examination V72.2 [facility] [id number] [place] [address] 29122 2546 Sep, [facility] [id number] [place] [address] 50069- 5596 Aug, [facility] [id number] [place] [address] [id number] July, Dental examination V72.2 [facility] [id number] [place] [address] 91880- 3106 July, Cough 786.2 [facility] [id number] [place] [address] 05767- 0346 July, Sinusitis 473.9 and Fry esophagus 530.85 [facility] [id number] [place] [address] 89648- 6056 Jun, [facility] [address] [address]- 8686 Jun, [facility] [id number] [place] [address] 88726- 2136 May, [facility] [address] [id number] [address]- 1616 May, [facility] [id number] [place] [address] 45035- 7906 May, [facility] [address] [address]- 1656 May, [facility] [id number] [place] [address], [place] [address]- 9440 May, 2014 [facility] [place] [facility] [address] [id number] [place] [address]- 7923 May, [facility] [place] [facility] [address] [id number] [place] [address]- 4432 May, [facility] [place] [facility] [address] [id number] [place] [address]- 8456 May, [facility] [place] [facility] [address] [id number] [place] [address]- 5740 Apr, [facility] [place] [facility] [address] [id number] [place] [address]- 5850 Apr, [facility] [place] [facility] [address] [id number] [place] [address]- 4307 Apr, [facility] [place] [facility] [address] [id number] [place] [address]- 7596 Mar, [facility] [place] [facility] [address] [id number] [place] [address]- 6962 Mar, [facility] [place] [facility] [address] [id number] [place] [address]- 5304 Mar, [facility] [place] [facility] [address] [id number] [place] [address]- 3334 Mar, [facility] [place] [facility] [address] [id number] [place] [address]- 0552 Feb, [facility] [place] [facility] [address] [id number] [place] [address]- 9867 Feb, [facility] [place] [facility] [address] [id number] [place] 2496 Feb, [facility] [place] [facility] [address] [id number] [place] [address]- 3609 Feb, [facility] [place] [facility] [address] [id number] [place] 5525 Feb, [facility] [place] [facility] [address] [id number] [place] 4705 Feb, [facility] [place] [facility] [address] [id number] [place] 9695 Feb, [facility] [place] [facility] [address] [id number] [place] [address]- 3388 Jan, [facility] [place] [facility] [address] [id number] [place] [address]- 3194 Jan, [facility] [place] [facility] [address] [id number] [place] [address]- 7196 Jan, [facility] [place] [facility] [address] [id number] [place] [address]- 6206 Jan, [facility] [place] [facility] [address] [id number] [place] [address]- 3913 Dec, [facility] [place] [facility] [address] [id number] [place] [address]- 8008 Dec, [facility] [place] [facility] [address] [id number] [place] [address]- 6687 Dec, [facility] [place] [facility] [address] [id number] [place] [address]- 4032 Dec, [facility] [place] [facility] [address] [id number] [place] [address]- 5308 Dec, [facility] [place] [facility] [address] [id number] [place] [address]- 4509 Dec, [facility] [place] [facility] [address] [id number] [place] [address]- 5955 24 Nov, 2013 [facility] [place] [facility] [address] [id number] [place] [address]- 7161 Nov, [facility] [place] [facility] [address] [id number] [place] [address]- 3225 Nov, [facility] [place] [facility] [address] [id number] [place] [address]- 0315 Nov, [facility] [place] [facility] [address] [id number] [place] [address]- 6690 Nov, [facility] [place] [facility] [address] [id number] [place] [address]- 9929 Nov, [facility] [place] [facility] [address] [id number] [place] [address]- 1745 Nov, [facility] [place] [facility] [address] [id number] [place] [address]- 9129 Oct, [facility] [place] [facility] [address] [id number] [place] [address]- 2283 Oct, [facility] [place] [facility] [address] [id number] [place] [address]- 7256 Oct, [facility] [place] [facility] [address] [id number] [place] [address]- 6549 Oct, [facility] [place] [facility] [address] [id number] [place] [address]- 0274 Oct, [facility] [place] [facility] [address] [id number] [place] [address]- 0861 Oct, [facility] [place] [facility] [address] [id number] [place] [address]- 4547 Oct, [facility] [place] [facility] [address] [id number] [place] [address]- 8528 Oct, [facility] [place] [facility] [address] [id number] [place] [address]- 6699 Oct, [facility] [place] [facility] [address] [id number] [place] [address]- 0966 Sep, [facility] [place] [facility] [address] [id number] [place] [address]- 9536 Sep, [facility] [place] [facility] [address] [id number] [place] [address]- 3503 Sep, [facility] [place] [facility] [address] [id number] [place] [address]- 1841 Sep, 2013 [facility] [place] [facility] [address] [id number] [place] [address]- 1708 Sep, 2013 [facility] [place] [facility] [address] [id number] [place] [address]- 5501 Sep, 2013 [facility] [place] [facility] [address] [id number] [place] [address]- 1724 Sep, 2013 [facility] [place] [facility] [address] [id number] [place] [address]- 6867 Sep, [facility] [place] [facility] [address] [id number] [place] [address]- 3835 Sep, [facility] [place] [facility] [address] [id number] [place] [address]- 9368 Aug, [facility] [place] [facility] [address] [id number] [place] [address]- 7618 Aug, [facility] [place] [facility] [address] [id number] [place] [address]- 1579 Jun, [facility] [place] [facility] [address] [id number] [place] [address]- 9217 Jun, [facility] [place] [facility] [address] [id number] [place] [address]- 0755 May, [facility] [place] [facility] [address] [id number] [place] [address]- 9949 May, [facility] [place] [facility] [address] [id number] [place] [address]- 7195 Apr, [facility] [place] [facility] [address] [id number] [place] [address]- 9975 Apr, [facility] [place] [facility] [address] [id number] [place] [address]- 3746 Apr, [facility] [place] [facility] [address] [id number] [place] [address]- 1315 Apr, [facility] [address] [id number] [place] [address]- 1141 Feb, [facility] [place] [facility] [address] [id number] [place] [address]- 4316 Feb, [facility] [place] [facility] [address] [facility] [id number] [place] [address] 2546 Jan, [facility] [place] [facility] [address] [id number] [place] [address]- 2548 Jan, [facility] [place] [facility] [address] [id number] [place] [address]- 2540 Nov, [facility] [place] [facility] [address] [id number] [place] [address] 2546 Sep, [facility] [place] [facility] [address] [id number] [place] [address]- 2546 Sep, [facility] [place] [facility] [address] [id number] [place] [address]- 9143 Aug, [facility] [place] [facility] [address] [id number] [place] [address]- 6313 Aug, [facility] [place] [facility] [address] [id number] [place] [address]- 2546 Aug, [facility] [place] [facility] [address] [id number] [address]- 2546 July, [facility] [place] [facility] [address] [id number] [address]- 2546 July, [facility] [place] [facility] [address] [id number] [place] [address]- 2546 July, [facility] [place] [facility] [address] [id number], [place] [address]- 2546 May, [facility] [place] [facility] [address] [id number] [place] [address]- 2546 May, [facility] [place] [facility] [address] [id number] [place] [address]- 4132 30 Jan, 2012 [facility] [place] [facility] [address] [id number] [place] [address]- 8878 30 Jan, 2012 [facility] [place] [facility] [address] [id number] [place] [address]- 2901 Jan, [facility] [place] [facility] [address] [id number] [place] [address]- 5716 Jan, [facility] [place] [facility] [address] [id number] [place] [address]- 8417 Jan, [facility] [place] [facility] [address] [id number] [place] [address]- 0943 Jan, [facility] [place] [facility] [address] [id number] [place] [address]- 7914 Jan, [facility] [place] [facility] [address] [id number] [place] [address]- 7667 Jan, [facility] [place] [facility] [address] [id number] [place] [address]- 2660 Dec, [facility] [place] [facility] [address] [id number] [place] [address]- 0681 Dec, [facility] [place] [facility] [address] [id number] [place] [address]- 9951 Aug, [facility] [place] [facility] [address] [id number] [place] [address]- 1844 July, [facility] [place] [facility] [address] [id number] [place] [address]- 7936 Jun, [facility] [place] [facility] [address] [id number] [place] 2785 May, [facility] [place] [facility] [address] [id number] [place] [address]- 1288 May, [facility] [place] [facility] [address] [id number] [place] 9512 May, [facility] [place] [facility] [address] [facility] [id number] [place] [address]- 4738 Jun, IMMUNIZATIONS No Known Immunizations SOCIAL HISTORY Never Assessed REASON FOR VISIT blood sugar issues, fatigue, disorientation, shaking and sweating this afternoon , pt states has never happened before and concerned about hypoglycemia, peeling on bilateral hand, would like referral to appliance assembler--[facility] PLAN OF CARE Activity Details Follow Up 3 Months, prn Reason:chm VITAL SIGNS Height 68 in 2016-10-04 Weight 206 lbs 2016-10-04 Temperature 98.0 degrees Fahrenheit 2016-10-04 Heart Rate 90 bpm 2016-10-04 Respiratory Rate 20 2016-10-04 BMI 31.32 kg/m2 2016-10-04 Blood pressure systolic 112 mmHg 2016-10-04 Blood pressure diastolic 70 mmHg 2016-10-04 MEDICATIONS Medication Instructions Dosage Frequency Start Date End Date Duration Status Nitrostat 0.4 MG Sublingual 3 times a day prn take one tablet as needed for chest pain- july repeat x 2 every 5 min. then go to ER Active Pantoprazole Sodium 40 mg orally Once a day, for fry's esoph. 1 tablet 30 Active Glucocard Expression Test - In Vitro 2 times a day as directed 12h July, 90 days Active Metformin HCl 500 mg Orally Once a day with evening meal 1 tablet with meals July, 90 days Active Cyclobenzaprine HCl 10 mg 1 tablet Active Pravastatin Sodium 20 MG Orally Once a day 1 tablet 24h Oct, 90 days Active Melatonin 5 MG Orally Once a day 1 tablet at bedtime as needed with food 24h Active Percocet 5-325 MG Orally 2 times a day as needed 1 tablet as needed Aug, 28 days Active HydrOXYzine HCl 25 MG Orally every 8 hrs 1 tablet as needed 8h Oct, 90 days Active RESULTS Name Result Date Reference Range GLUCOSE FINGERSTICK (IN HOUSE) 2016-10-04 GLU FINGERSTICK 90 PC Lot # [id number] Exp date 11/10/2016 PROCEDURES Procedure Date Ordered Result Body Site GLUCOSE BLOOD TEST October 04, 2016 [facility] VISIT ESTABLISHED PATIENT October 04, 2016 INSTRUCTIONS MEDICATIONS ADMINISTERED No Known Medications MEDICAL [...] Degeneration disease of medial meniscus, unspecified laterality Surgical History sinus surgery Surgical History tonsillectomy Surgical History appendectomy 1971 Surgical History partial hysterectomy--uterine fibroids 1989 Surgical History tubal ligation Surgical History section 1977 Surgical History orthopedic surgery--Right thumb Surgical History cholecystectomy 1996 Surgical History arthroscopic knee surgery Surgical History lung surgery - PE and histoplasmosis Surgical History heart cath 04/2015; no stents Surgical History right shoulder Surgical History EGD 2016 Hospitalization History fell on ice and broke left arm-ER visit 02/2013
--- OUTSIDE RECORDS SUMMARY | 2017-10-14 00:16 | XMS REPORT ---
Author Author JANES PECK Organization [facility] Address [address] [place] [address] Care Team Providers Care Toll Lineman Name Role Phone CISCO JANES Unavailable PROBLEMS Type Condition ICD9-CM Code [id number] Code Onset Dates Condition Status SNOMED Code Problem Calculus of left kidney N20.0 Active 22331287 Problem Pain in left hip M25.552 Active 62984179 Problem Vaginal cancer C52 Active 402778891 Problem Type 2 diabetes mellitus without complication, without long-term current use of insulin E11.9 Active 744079762 Problem Trochanteric bursitis of right hip M70.61 Active 472937979785726 Problem Dyshidrotic eczema L30.1 Active 364038807 Problem Angina pectoris I20.9 Active 398178755 Problem Pain in right hip M25.551 Active 48098845 Problem Polyneuropathy G62.9 Active 72849003 Problem Drug allergy Z88.9 Active 681141086 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 476294066 Problem CAD (coronary artery disease) I25.10 Active 97144286 Problem Seborrheic keratoses L82.1 Active 821282841 Problem Sciatica of right side M54.31 Active 98921617 Problem Bone spur M77.9 Active 236244651125129 Problem Hyperlipidemia E78.5 Active 11947068 Problem GERD (gastroesophageal reflux disease) K21.9 Active 663711398 Problem Hypercholesteremia E78.0 Active 25625158 Problem Sciatica M54.30 Active 10704679 Problem Degeneration disease of medial meniscus, 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 92023330 ALLERGIES Substance Reaction Event Type Date Status Pentazocine-Naloxone itching Drug Allergy Apr, Active Cipro Unknown Drug Allergy Apr, Active Actifed palpitations Drug Allergy Apr, Active Oxycodone unable to take more than 1 Drug Allergy Apr, Active Morphine Abdominal pain with IV form Drug Allergy Apr, Active SOCIAL HISTORY Never Assessed PLAN OF CARE Activity Details Follow Up prn Reason: VITAL SIGNS Height 68 in 2016-05-03 Weight 210.1 lbs 2016-05-03 Temperature 97.4 degrees Fahrenheit 2016-05-03 Heart Rate 76 bpm 2016-05-03 Respiratory Rate 20 2016-05-03 BMI 31.94 kg/m2 2016-05-03 Blood pressure systolic 132 mmHg 2016-05-03 Blood pressure diastolic 88 mmHg 2016-05-03 MEDICATIONS Medication Instructions Dosage Frequency Start Date End Date Duration Status Percocet 5-325 MG Orally every 6 hrs 1 tablet as needed 6h July, Active Pravastatin Sodium 20 MG Orally Once a day 1 tablet 24h Oct, Active Nitrostat 0.4 MG Sublingual 3 times a day prn take one tablet as needed for chest pain- july repeat x 2 every 5 min. then go to ER Active Cyclobenzaprine HCl 10 mg 1 tablet Active HydrOXYzine HCl 25 MG Orally every 8 hrs 1 tablet as needed 8h Oct, Active Carafate 1 GM TAKE ONE TABLET BY MOUTH FOUR TIMES DAILY 30 Active Pantoprazole Sodium 40 mg orally Once a day, for fry's esoph. 1 tablet Active RESULTS No Results PROCEDURES Procedure Date Ordered Result Body Site BIOPSY, SKIN ADD-ON May 03, 2016 BIOPSY SKIN (EACH ADD'L) 2016-05-03 N/A BIOPSY SKIN LESION (SINGLE) 2016-05-03 N/A IMMUNIZATION ADMIN, EACH ADD (please include units) May 03, 2016 SINGLE IMMUNIZATION ADMIN May 03, 2016 BIOPSY OF SKIN LESION May 03, 2016 [facility] VISIT ESTABLISHED PATIENT May 03, 2016 PCV 13 May 03, 2016 FLUARIX QUAD P-FREE 3 AND UP .50 2015May 03, 2016 IMMUNIZATIONS Vaccine Route Administration Date Status FLUARIX QUAD P-FREE 3 AND UP .50 2015 IM Intramuscular May 03, 2016 Administered PCV 13 IM Intramuscular May 03, 2016 Administered MEDICAL (GENERAL) HISTORY Type Description Date Medical [...] History EGD w/ pyloric polyps noted 03/2016 Surgical History sinus surgery Surgical History tonsillectomy [...]
--- OUTSIDE RECORDS SUMMARY | 2017-10-14 00:16 | XMS REPORT ---
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
--- OUTSIDE RECORDS SUMMARY | 2017-10-14 00:16 | XMS REPORT ---
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 Active 778797422 Problem Angina pectoris I20.9 Active 174890889 Problem Vaginal cancer C52 Active 895522103 Problem Polyneuropathy G62.9 Active 11151251 Problem Drug allergy Z88.9 Active 667135730 Problem Seborrheic keratoses L82.1 Active 128257934 Problem Sciatica M54.30 Active 68659819 Problem Trochanteric bursitis of right hip M70.61 Active 802849004249650 Problem CAD (coronary artery disease) I25.10 Active 52308784 Problem Hyperlipidemia E78.5 Active 54400096 Problem Bone spur M77.9 Active 696354243578444 Problem GERD (gastroesophageal reflux disease) K21.9 Active 576790418 Problem Hypercholesteremia E78.0 Active 15080329 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
--- OUTSIDE RECORDS SUMMARY | 2017-10-14 00:16 | XMS REPORT ---
Author Author LEILANI HOLLINGSWORTH [facility] Address [address] [place] [address] Care Team Providers Care International Trade Manager Name Role Phone LEILANI HOLLINGSWORTH Unavailable PROBLEMS Type Condition ICD9-CM Code [id number] Code Onset Dates Condition Status SNOMED Code Problem Calculus of left kidney N20.0 Active 36960681 Problem Pain in right hip M25.551 Active 54037927 Problem Pain in left hip M25.552 Active 74454112 Problem Type 2 diabetes mellitus without complication, without long-term current use of insulin E11.9 Active 676260332 Problem Sciatica of right side M54.31 Active 02356849 Problem Dyshidrotic eczema L30.1 Active 361467365 Problem Angina pectoris I20.9 Active 437125762 Problem Vaginal cancer C52 Active 538854467 Problem Polyneuropathy G62.9 Active 26709272 Problem Drug allergy Z88.9 Active 767279183 Problem Seborrheic keratoses L82.1 Active 903722707 Problem Sciatica M54.30 Active 88846225 Problem Trochanteric bursitis of right hip M70.61 Active 639816454990204 Problem CAD (coronary artery disease) I25.10 Active 36587898 Problem Hyperlipidemia E78.5 Active 13823981 Problem Bone spur M77.9 Active 037211614722340 Problem GERD (gastroesophageal reflux disease) K21.9 Active 256796264 Problem Hypercholesteremia E78.0 Active 14556384 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 570909170 Problem Degeneration disease of medial meniscus, 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 40150025 ALLERGIES Substance Reaction Event Type Date Status Pentazocine-Naloxone itching Drug Allergy Feb, Active Cipro Unknown Drug Allergy Feb, Active Actifed palpitations Drug Allergy Feb, Active Oxycodone unable to take more than 1 Drug Allergy Feb, Active Morphine Abdominal pain with IV form Drug Allergy Feb, Active SOCIAL HISTORY No smoking Hx information available PLAN OF CARE Activity Details Follow Up prn Reason: VITAL SIGNS Height 68 in 2016-03-23 Weight 209.1 lbs 2016-03-23 Temperature 98.1 degrees Fahrenheit 2016-03-23 Heart Rate 84 bpm 2016-03-23 Respiratory Rate 18 2016-03-23 BMI 31.79 kg/m2 2016-03-23 Blood pressure systolic 108 mmHg 2016-03-23 Blood pressure diastolic 70 mmHg 2016-03-23 MEDICATIONS Medication Instructions Dosage Frequency Start Date End Date Duration Status Pravastatin Sodium 20 MG Orally Once a day 1 tablet 24h Oct, Active Melatonin 5 MG Orally Once a day 1 tablet at bedtime as needed with food 24h Active Nitrostat 0.4 MG Sublingual 3 times a day prn take one tablet as needed for chest pain- july repeat x 2 every 5 min. then go to ER Active Carafate 1 GM TAKE ONE TABLET BY MOUTH FOUR TIMES DAILY Active HydrOXYzine HCl 25 MG Orally every 8 hrs 1 tablet as needed 8h Oct, Active Cyclobenzaprine HCl 10 mg 1 tablet Active Macrobid 100 MG Orally every 12 hrs 1 capsule with food 12h Feb, Feb, 7 day(s) Active Percocet 5-325 MG Orally every 6 hrs 1 tablet as needed 6h July, Active Pantoprazole Sodium 40 mg orally Once a day, for fry's esoph. 1 tablet Active PredniSONE 20 mg Orally Once a day 2 qd 3d, 1 qd 3d 24h Feb,Mar 6 days Active RESULTS No Results PROCEDURES Procedure Date Ordered Related Diagnosis Body Site [facility] VISIT ESTABLISHED PATIENT Mar 23, 2016 Office Visit, Est Pt., Level 2 Mar 23, 2016 IMMUNIZATIONS No Known Immunizations
--- OUTSIDE RECORDS SUMMARY | 2017-10-14 00:17 | XMS REPORT ---
Author Author JIGNESH LUCIA [facility] [employer] Address Unknown Phone Unavailable Care Team Providers Care Operations Research Manager Name Role Phone JIGNESH LUCIA Unavailable Allergies No Known Allergies Problems Problem Type Condition ICD-9 Code Onset Dates Condition Status Problem Other atopic dermatitis and related conditions 691.8 Active Problem Pain in joint, shoulder region 719.41 Active Problem Sprain and strain of unspecified site of foot 845.10 Active Problem Unspecified myalgia and myositis 729.1 Active Problem Other localized visual field defect 368.44 Active Problem Pain in joint, pelvic region and thigh 719.45 Active Problem 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.85 Active Problem Special screening for malignant neoplasms, colon V76.51 Active Problem Abdominal pain, unspecified site 789.00 Active Problem Calcaneal spur 726.73 Active Problem Cervicalgia 723.1 Active Problem Unspecified renal failure 586 Active Problem Other disorder of coccyx 724.79 Active Problem Acute sinusitis, unspecified 461.9 Active Problem Diarrhea 787.91 Active Problem Other and unspecified noninfectious gastroenteritis and colitis 558.9 Active Problem Need for shingles vaccine V04.89 Active Problem Enthesopathy of hip region 726.5 Active Problem Inflamed seborrheic keratosis 702.11 Active Problem Acute pharyngitis 462 Active Problem Coronary artery disease 414.00 Active Problem Urinary tract infection, site not specified 599.0 Active Problem Sciatica 724.3 Active Problem Esophageal reflux 530.81 Active Problem Fall resulting in striking against other object E888.1 Active Problem Unspecified disorder of skin and subcutaneous tissue 709.9 Active Problem Unspecified breast screening V76.10 Active Problem Pain in joint, ankle and foot 719.47 Active Problem Pain in joint, upper arm 719.42 Active Problem Need for prophylactic vaccination and inoculation, Influenza V04.81 Active Problem Routine gynecological examination V72.31 Active Problem Insomnia, unspecified 780.52 Active Problem Unspecified symptom associated with female genital organs 625.9 Active Problem Contact dermatitis and other eczema, due to unspecified cause 692.9 Active Assessment Dental examination V72.2 Active Problem Acute bronchitis 466.0 Active Problem Special screening for osteoporosis V82.81 Active Problem Pain in joint, lower leg 719.46 Active Problem Cough 786.2 Active Problem Postnasal drip 784.91 Active Medications No Known Medications Procedures Procedure Coding System Code Date RESIN COMPOS - ONE SURFACE ANTERIOR CPT-4 D2330 Nov 18, 2014 Results No Known Results Summary Purpose [employer] Submission
--- OUTSIDE RECORDS SUMMARY | 2017-10-14 00:17 | XMS REPORT ---
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 Problem Hypercholesteremia E78.0 Active Problem Calculus of left kidney N20.0 Active 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 Problem GERD (gastroesophageal reflux disease) K21.9 Active Problem Bone spur M77.9 Active Problem Hyperlipidemia E78.5 Active Medications Medication Code System Code Instructions Start Date End Date Status Dosage Mobic [facility] [address]-27 7.5 MG Orally Once a day Feb 22, 2015 1 tablet Pravastatin Sodium [facility] [address]-85 20 MG Orally Once a day Oct 29, 2014 1 tablet Melatonin [facility] [address]-34 5 MG Orally Once a day 1 tablet at bedtime as needed with food Carafate [facility] 21190693473 1 GM TAKE ONE TABLET BY MOUTH FOUR TIMES DAILY Cetirizine HCl [facility] [address]-18 10 mg Orally Once a day September 14, 2015 Mar 12, 2016 1 tablet Calcium & Vit D3 Bone Health [facility] [address] ... Orally Once a day 16 oz Procedures Procedure Coding System Code Date Office Visit, Est Pt., Level 2 CPT-4 43950 Nov 11, 2015 [facility] VISIT ESTABLISHED PATIENT CPT-4 G0467 Nov 11, 2015 Results No Known Results Summary Purpose [employer] Submission
--- OUTSIDE RECORDS SUMMARY | 2017-10-14 00:17 | XMS REPORT ---
Author Author JANES PECK Organization [facility] Address [address] [place] [address] Care Team Providers Care Public Records Officer Name Role Phone PECKNIRAJ HoustonELE Unavailable PROBLEMS Type Condition ICD9-CM Code AAV54-GE Code Onset Dates Condition Status SNOMED Code Problem Vaginal cancer C52 Active 665349526 Problem Polyneuropathy G62.9 Active 93242135 Problem Angina pectoris I20.9 Active 954805183 Problem Other obesity due to excess calories E66.09 Active 723287825 Problem Anxiety F41.9 Active 18695262 Problem Type 2 diabetes mellitus with diabetic neuropathic arthropathy, 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 Active 424262107 Problem Dyshidrotic eczema L30.1 Active 828319849 Problem Type 2 diabetes mellitus without complication, without long-term current use of insulin E11.9 Active 684294578 Problem Body mass index (BMI) of 30.0-30.9 in adult Z68.30 Active 617598426 Problem CAD (coronary artery disease) I25.10 Active 16017678 Problem GERD (gastroesophageal reflux disease) K21.9 Active 643367503 Problem Sciatica of right side M54.31 Active 89195251 Problem Trochanteric bursitis of right hip M70.61 Active 686906301202032 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 057451053 Problem Syndrome X, 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 Active 198518840 Problem Seborrheic keratoses L82.1 Active 756811984 Problem Hyperlipidemia E78.5 Active 70279527 ALLERGIES No Information ENCOUNTERS Encounter Location Date Diagnosis [facility] [address] [facility] [id number], [place] [address] Oct, [facility] [address] [facility] [id number], [place] [address] Sep, Pain in right hip M25.551 [place] [id number] [place] [address] 22725- 6577 Sep, [place] [address] [place] [id number] [place] [address] 10837- 7490 Aug, Acute cystitis with hematuria N30.01 [place] [address] [place] [id number] [place] [address] 27911- 5261 Aug, Type 2 diabetes mellitus without complication, without long- term current use of insulin E11.9 ; Type 2 diabetes mellitus with diabetic neuropathic arthropathy, 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 ; Hyperlipidemia E78.5 ; CAD (coronary artery disease) I25.10 ; 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 ; Other obesity due to excess calories E66.09 ; Body mass index (BMI) of 30.0-30.9 in adult Z68.30 ; Syndrome X, 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 ; Pain in right hip M25.551 ; Anxiety F41.9 ; Angina pectoris I20.9 and Vaginal cancer C52 [place] [address] [place] [id number] [place] [address] 26124- 8335 Aug, [place] [address] [place] [id number] [place] [address] 09836- 6663 Aug, [place] [address] [place] [id number] [place] [address] 64191- 6827 Aug, Vaginal candidiasis B37.3 and Vaginal itching L29.8 [place] [address] [place] [id number] [place] [address] 28814- 8817 Aug, Dysuria R30.0 and Acute cystitis with hematuria N30.01 [place] [address] [place] [id number] [place] [address] 20254- 1410 July, [place] [address] [place] [id number] [place] [address] 21291- 2132 July, [place] [id number] [place] [address] 98697- 7634 July, [place] [address] [place] [id number] [place] [address] 48664- 3653 Jun, [place] [address] 46064- 5207 Jun, [facility] [place] [address] 71558 -1376 Jun, Right anterior knee pain M25.561 [place] [address] 79954- 2091 Jun, [place] [address] 15941- 1264 Jun, Type 2 diabetes mellitus with diabetic neuropathic arthropathy, 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 [place] [address] [place] [id number] [place] [address] 68876- 4517 May, Acute non-recurrent maxillary sinusitis J01.00 and Acute suppurative otitis media of left ear without spontaneous rupture of tympanic membrane, recurrence not specified H66.002 [facility] [place] [address] [place] [id number] [place] [address] 58996 -1675 May, Viral upper respiratory tract infection J06.9 [place] [address] [place] [id number] [place] [address] 24061- 3124 Apr, [place] [address] [place] [id number] [place] [address] 91779- 8256 Apr, Type 2 diabetes mellitus with diabetic [...] index (BMI) of 32.0-32.9 in adult Z68.32 [place] [address] [place] [id number] [place] [address] 50296- 6674 09 Apr, 2017 Type 2 diabetes mellitus without complication, without long- term current use of insulin E11.9 [place] [address] [place] [id number] [place] [address] 50464- 4820 02 Apr, 2017 Papule R23.8 and Actinic keratosis L57.0 [facility] [address] 38733 -8955 11 Mar, 2017 Cough R05 ; Encounter for immunization Z23 ; Other viral agents as the cause of diseases classified elsewhere B97.89 and Acute upper respiratory infection, unspecified J06.[address] 59694- 5915 14 Jan, 2017 Migraine without status migrainosus, not intractable, unspecified migraine type G43.[address] 26051- 7756 Sep, [address] 41816- 6812 13 Sep, 2016 Type 2 diabetes mellitus without complication, without long- term current use of insulin E11.9 ; Dehydration, mild E86.0 and Dyshidrotic eczema L30.1 [place] [id number] [place] [address] 65653- 8595 Sep, [place] [id number] [place] [address] 61196- 7238 Aug, Migraine without status migrainosus, not intractable, unspecified migraine type G43.[address] 42648- 6736 July, [address] 16600- 1335 Jun, Medicare annual wellness visit, subsequent Z00.00 ; Hyperlipidemia E78.5 ; CAD (coronary artery disease) I25.10 and Vaginal cancer C52 [id number] [place] [address] 26668- 8544 Jun, Sciatica M54.30 ; Pain in right hip M25.551 ; Dyshidrotic eczema L30.1 ; Candidiasis of breast B37.89 ; Right anterior knee pain M25.561 ; Hyperlipidemia E78.5 and Encounter for immunization Z23 [place] [address] [place] [id number] [place] [address] 97774- 0292 May, Ganglion cyst of joint of finger of left hand M67.442 [place] [address] 82709- 5512 May, Migraine without status migrainosus, not intractable, unspecified migraine type G43.909 [place] [address] [place] [id number] [place] [address] 79047- 2801 May, [place] [address] 49562- 8460 Apr, Skin lesion of back L98.9 and Encounter for immunization Z23 [place] [address] [place] [id number] [place] [address] 82682- 7424 Mar, Candidal dermatitis B37.2 ; Seborrheic keratoses L82.1 ; Polyneuropathy G62.9 and Dysuria R30.0 [facility] [address] [place] [address] [id number] Mar, Dental examination Z01.20 [place] [address] [place] [id number] [place] [address] 83435- 2813 Mar, Neuritis M79.2 [place] [address] 92730- 8427 Feb, Drug allergy Z88.9 [place] [address] [place] [id number] [place] [address] 69843- 8276 Feb, Dysuria R30.0 [place] [address] 80644- 7727 Feb, Acute cystitis with hematuria N30.01 [place] [address] [place] [id number] [place] [address] 33758- 2337 Feb, Dysuria R30.0 and Acute cystitis with hematuria N30.01 [place] [address] [place] [id number] [place] [address] 25424- 2957 Feb, Angina pectoris I20.9 ; Finger pain, left M79.645 ; 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 ; GERD (gastroesophageal reflux disease) K21.9 ; Pain in right hip M25.551 ; Pain in left hip M25.552 and Encounter for screening mammogram for breast cancer Z12.[address] 04797- 9397 Dec, Right hip pain M25.[address] 26920- 3869 13 Nov, 2015 GERD (gastroesophageal reflux disease) K21.9 ; Vaginal cancer C52 ; Pain in right hip M25.551 and Pain in left hip M25.[address] 80681- 6981 Oct, Squamous cell carcinoma C80.[address] 50341- 3710 Oct, Skin lesions L98.9 and Encounter for well woman exam Z01.419 [place] [id number] [place] [address] 01071- 6899 Oct, [address] 36785- 9547 Sep, [facility] [address] [address] Aug, Atopic dermatitis, unspecified type L20.9 and Tick bite, initial encounter W57.XXXA [facility] [address] [place] [address] 72335 -4682 Aug, [place] [address] [place] [id number] [place] [address] 25257- 4327 July, Pre-procedural laboratory examination Z01.812 [place] [address] 01162- 7689 July, Migraine without status migrainosus, not intractable, unspecified migraine type G43.909 ; Barretts esophagus without dysplasia K22.70 ; Sciatic nerve pain, left M54.32 and Localized swelling, mass and lump, head R22.0 [place] [address] 24925- 1864 May, [address] 53414- 3819 May, [facility] [address] 62693 -5857 May, Unspecified fall, initial encounter W19.XXXA ; Unspecified place in unspecified non-institutional (private) residence as the place of occurrence of the external cause Y92.009 ; Mid back pain M54.9 ; Rib pain on right side R07.81 ; Buttock pain M79.1 and Post-traumatic headache, unspecified , not intractable G44.309 [place] [id number] [place] [address] 88752- 3776 Apr, Hypercholesteremia E78.0 ; Chest discomfort R07.89 ; 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 and History of sciatica Z86.69 [place] [address] [place] [id number] [place] [address] 16301- 6806 Mar, Calculus of left kidney N20.0 ; Hyperlipidemia E78.5 ; Degeneration disease of medial meniscus, 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 ; Right knee pain M25.561 ; Sciatica M54.30 ; GERD (gastroesophageal reflux disease) K21.9 and 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 23961- 3104 Mar, [place] [address] [place] [id number] [place] [address] 42046- 0895 Mar, [address] 82400- 0832 Mar, [address] 91711- 7718 Mar, Plantar fasciitis M72.[address] 57042- 2932 Mar, Degeneration disease of medial meniscus, 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 ; Right knee pain M25.561 ; Sciatica M54.30 ; GERD ( gastroesophageal reflux disease) K21.9 and 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 19748- 1354 Feb, [address] 23142- 3436 Feb, Osteopenia M85.[address] 54932- 5656 Feb, Screening for malignant neoplasm of breast Z12.39 and Encounter for screening mammogram for malignant neoplasm of breast Z12.31 [place] [id number] [place] [address] 89913- 8449 Feb, Hip pain M25.[address] 46974- 4307 Feb, [address] 25384- 4140 Feb, Arthralgia of right hip M25.551 ; Sciatica M54.30 ; GERD ( gastroesophageal reflux disease) K21.9 ; 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 ; CAD ( coronary artery disease) I25.10 and Hyperlipidemia 272.4 [facility] [address] [place] [id number] [place] [address] 35532 -8353 Jan, Pharyngitis J02.9 ; Body aches R52 ; Cough R05 and Sinusitis J32.9 [facility] [address] [place] [address] 11046- 0556 Nov, Contusion of foot 924.20 and Plantar fasciitis 728.71 [facility] [address] [place] [address] [id number] Oct, Dental examination V72.2 [facility] [address] 28294- 6666 Oct, [facility] [address] [place] [id number] [place] [address] 398650- 6318 Oct, Coronary artery disease 414.00 [facility] [address] 47353- 0686 Oct, Zoster 053.9 [facility] [address] 475567- 8032 Sep, Pain in joint, ankle and foot 719.47 ; Fry's esophagus 530.85 ; Cervicalgia 723.1 ; Pain in joint, shoulder region 719.41 ; Coronary artery disease 414.00 and Need for shingles vaccine V04.89 [facility] [address] [place] [id number] [place] [address] [id number] Sep, Dental examination V72.2 [facility] [address] [place] [address] 37627- 5316 Sep, [facility] [address] [place] [id number] [place] [address] 32713- 1846 Aug, [facility] [address] [place] [id number] [place] [address] [id number] July, Dental examination V72.2 [facility] [address] [place] [id number] [place] [address] 86374- 5976 July, Cough 786.2 [facility] [address] [place] [id number] [place] [address] 54690- 0494 July, Sinusitis 473.9 and Fry esophagus 530.85 [facility] [address] [facility] [id number] [place] [address]- 4002 14 Jun, 2014 [facility] [address] [facility] [id number], [place] [address]- 2917 Jun, [facility] [address] [place] [address]- 4830 May, [facility] [address] [facility] [id number], [place] [address]- 7672 May, [facility] [address] [facility] [id number] [place] [address]- 6784 May, [facility] [address] [facility] [id number], [place] [address]- 3161 May, [facility] [address] [address]- 0532 May, [facility] [address] [address]- 4361 May, [facility] [address] [address]- 1998 May, [facility] [address] [address]- 8389 May, [facility] [address] [address]- 3483 Apr, [facility] [address] [facility] [id number], [place] [address]- 9236 Apr, [facility] [address] [place] [id number] [address]- 1234 Apr, [facility] [address] [facility] [id number], [place] [address]- 4266 Mar, [facility] [address] [place] [id number] [address]- 4399 Mar, [facility] [place] [facility] [address] [id number] [place] [address]- 3016 Mar, [facility] [place] [facility] [address] [id number] [place] 0177 Mar, [facility] [place] [facility] [address] [id number] [place] 5403 Feb, [facility] [place] [facility] [address] [id number] [place] 0013 Feb, [facility] [place] [facility] [address] [id number] [place]- 3668 Feb, [facility] [place] [facility] [address] [id number] [place] [address]- 8946 Feb, [facility] [place] [facility] [address] [id number] [place] [address]- 0199 Feb, [facility] [place] [facility] [address] [id number] [place] [address]- 7188 Feb, [facility] [place] [facility] [address] [id number] [place] [address]- 6061 Feb, [facility] [place] [facility] [address] [id number] [place] [address]- 0977 Jan, [facility] [place] [facility] [address] [id number] [place] [address]- 0411 Jan, [facility] [place] [facility] [address] [id number] [place] [address]- 4199 Jan, [facility] [place] [facility] [address] [id number] [place] 5860 Jan, [facility] [place] [facility] [address] [id number] [place] [address]- 5836 Dec, [facility] [place] [facility] [address] [id number] [place] [address]- 4248 Dec, [facility] [place] [facility] [address] [id number] [place] [address]- 5882 Dec, [facility] [place] [facility] [address] [id number] [place] [address]- 0695 Dec, [facility] [place] [facility] [address] [id number] [place] [address]- 1703 16 Dec, 2013 [facility] [place] [facility] [address] [id number] [place] [address]- 4691 16 Dec, 2013 [facility] [place] [facility] [address] [id number] [place] [address]- 3523 24 Nov, 2013 [facility] [place] [facility] [address] [id number] [place] [address]- 5274 23 Nov, 2013 [facility] [place] [facility] [address] [id number] [place] [address]- 9002 23 Nov, 2013 [facility] [place] [facility] [address] [id number] [place] [address]- 0017 17 Nov, 2013 [facility] [place] [facility] [address] [id number] [place] [address]- 2690 17 Nov, 2013 [facility] [place] [facility] [address] [id number] [place] [address]- 0245 05 Nov, 2013 [facility] [place] [facility] [address] [id number] [place] [address]- 3036 05 Nov, 2013 [facility] [place] [facility] [address] [id number], [place] [address]- 4871 Oct, [facility] [place] [facility] [address] [id number], [place] [address]- 2105 Oct, [facility] [place] [facility] [address] [id number] [place] [address]- 9892 Oct, [facility] [place] [facility] [address] [id number] [place] [address]- 1841 Oct, [facility] [place] [facility] [address] [id number] [place] [address]- 9620 Oct, [facility] [place] [facility] [address] [id number] [place] 0102 Oct, [facility] [place] [facility] [address] [id number] [place] [address]- 5649 Oct, [facility] [place] [facility] [address] [id number] [place] [address]- 8435 Oct, [facility] [place] [facility] [address] [id number] [place] [address]- 9299 Oct, [facility] [place] [facility] [address] [id number] [place] [address]- 6361 Sep, [facility] [place] [facility] [address] [id number] [place] [address]- 9723 Sep, [facility] [place] [facility] [address] [id number] [place] [address]- 2594 Sep, [facility] [place] [facility] [address] [id number] [place] [address]- 5342 Sep, [facility] [place] [facility] [address] [id number] [place] [address]- 3862 Sep, [facility] [place] [facility] [address] [id number] [place] [address]- 2369 Sep, [facility] [place] [facility] [address] [id number] [place] [address]- 0213 Sep, [facility] [place] [facility] [address] [id number] [place] [address]- 5554 Sep, [facility] [place] [facility] [address] [id number] [place] [address]- 7232 Sep, [facility] [place] [facility] [address] [id number] [place] [address]- 2232 Aug, [facility] [place] [facility] [address] [id number] [place] [address]- 2413 Aug, [facility] [place] [facility] [address] [id number] [place] [address]- 8554 Jun, [facility] [place] [facility] [address] [id number] [place] [address]- 1224 Jun, [facility] [place] [facility] [address] [id number] [place] [address]- 5793 May, [facility] [place] [facility] [address] [id number] [place] [address]- 0324 May, [facility] [place] [facility] [address] [id number] [place] [address]- 6383 Apr, [facility] [place] [facility] [address] [id number] [place] [address]- 7584 Apr, [facility] [place] [facility] [address] [id number] [place] [address]- 3286 Apr, [facility] [place] [facility] [address] [id number] [place] [address]- 2647 Apr, [facility] [place] [facility] [address] [id number] [place] [address]- 8591 Feb, [facility] [place] [facility] [address] [id number] [place] [address]- 7220 Feb, [facility] [place] [facility] [address] [id number] [place] [address]- 0111 Jan, [facility] [place] [facility] [address] [id number] [place] [address]- 1627 Jan, [facility] [place] [facility] [address] [id number] [place] [address]- 1516 Nov, [facility] [place] [facility] [address] [id number] [place] [address]- 5279 Sep, [facility] [place] [facility] [address] [id number] [place] [address]- 6356 Sep, [facility] [place] [facility] [address] [id number] [place] [address]- 1826 Aug, [facility] [place] [facility] [address] [id number] [place] [address]- 4138 Aug, [facility] [place] [facility] [address] [id number] [place] [address]- 8064 Aug, [facility] [place] [facility] [address] [id number] [place] [address] July, [facility] [place] [facility] [address] [id number] [place] [address] July, [facility] [place] [facility] [address] [id number] [place] [address] July, [facility] [place] [facility] [address] [id number] [place] [address] May, [facility] [place] [facility] [address] [id number] [place] [address] May, [facility] [place] [facility] [address] [id number] [place] [address] Jan, [facility] [place] [facility] [address] [id number] [place] [address] Jan, [facility] [place] [facility] [address] [id number] [place] [address] Jan, [facility] [place] [facility] [address] [id number] [place] [address] Jan, [facility] [place] [facility] [address] [id number] [place] [address] Jan, [facility] [place] [facility] [address] [id number] [place] [address] Jan, [facility] [place] [facility] [address] [id number] [place] [address] Jan, [facility] [place] [facility] [address] [id number] [place] [address] Jan, [facility] [place] [facility] [address] [id number] [place] [address] Dec, [facility] [place] [facility] [id number] [address] Dec, [facility] [id number] [address] Aug, [facility] [id number] [address] July, [facility] [id number] [address] Jun, [facility] [id number] [address] May, [facility] [id number] [place] [address] May, [facility] [id number] [address] May, [facility] [id number] [place] [address] Jun, IMMUNIZATIONS No Known Immunizations SOCIAL HISTORY Never Assessed REASON FOR VISIT med refill PLAN OF CARE VITAL SIGNS MEDICATIONS Medication Instructions Dosage Frequency Start Date End Date Duration Status Pantoprazole Sodium 40 mg orally Once a day, for fry's esoph. 1 tablet 30 Active RESULTS No Results PROCEDURES No Known procedures INSTRUCTIONS MEDICATIONS ADMINISTERED No Known Medications MEDICAL [...]
--- OUTSIDE RECORDS SUMMARY | 2017-10-14 00:17 | XMS REPORT ---
Author Author ERIC CUEVAS [facility] eClinicalWorks Address Unknown Phone Unavailable Care Team Providers Care Continuous Linter Drier Operator Name Role Phone ERIC CUEVAS Unavailable Allergies No Known Allergies Problems Problem [...] 702.11 Active Problem Acute pharyngitis 462 Active Assessment Plantar fasciitis 728.71 Active Problem Coronary artery disease 414.00 Active [...] due to unspecified cause 692.9 Active Assessment Contusion of foot 924.20 Active Problem Acute bronchitis 466.0 Active Problem Special screening for osteoporosis V82.81 Active Problem Pain in joint, lower leg 719.46 Active Problem Cough 786.2 Active Problem Postnasal drip 784.91 Active Medications No Known Medications Procedures Procedure Coding System Code Date DEPO MEDROL 80 MG/ML CPT-4 J1040 Dec 03, 2014 [facility] VISIT ESTABLISHED PATIENT CPT-4 G0467 Dec 03, 2014 INJ TENDON SHEATH/LIGAMENT CPT-4 18226 Dec 03, 2014 X-RAY EXAM OF FOOT CPT-4 09512 Dec 03, 2014 Office Visit, Est Pt., Level 3 CPT-4 41199 Dec 03, 2014 Vital Signs Date/Time: Dec 03, 2014 Blood Pressure Diastolic 80 mmHg Blood Pressure Systolic 122 mmHg Height 68 in Results Name Result Date Reference Range Unit Abnormality Flag INJ TENDON SHEATH/LIGAMENT Summary Purpose eClinicalWorks Submission
--- OUTSIDE RECORDS SUMMARY | 2017-10-14 00:17 | XMS REPORT ---
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 46692327 Problem Hypercholesteremia E78.0 Active 11133251 Problem Pain in left hip M25.552 Active 39440929 Problem Calculus of left kidney N20.0 Active 89943688 Problem CAD (coronary artery disease) I25.10 Active 92650348 Problem Seborrheic keratoses L82.1 Active 594077454 Problem Sciatica M54.30 Active 69779368 Assessment GERD (gastroesophageal reflux disease) K21.9 Nov, Active 531279629 Problem GERD (gastroesophageal reflux disease) K21.9 Active 796104553 ALLERGIES Substance Reaction Event Type Date Status Pentazocine-Naloxone itching Drug Allergy Nov, Active Actifed palpitations Drug Allergy Nov, Active Oxycodone unable to take more than 1 Drug Allergy Nov, Active Morphine Abdominal pain with IV form Drug Allergy Nov, Active SOCIAL HISTORY No smoking Hx information available PLAN OF CARE VITAL SIGNS Height 68 in 2015-12-06 Weight 217.6 lbs 2015-12-06 Heart Rate 72 bpm 2015-12-06 Respiratory Rate 18 2015-12-06 BMI 33.08 kg/m2 2015-12-06 Blood pressure systolic 118 mmHg 2015-12-06 Blood pressure diastolic 68 mmHg 2015-12-06 MEDICATIONS Medication Instructions Dosage Frequency Start Date End Date Duration Status Cyclobenzaprine HCl 10 mg 1 tablet Active HydrOXYzine HCl 25 MG Orally every 8 hrs 1 tablet as needed 8h Oct, Active Percocet 5-325 MG Orally every 6 hrs 1 tablet as needed 6h July, Active Pantoprazole Sodium 40 mg orally Once a day, for fry's esoph. 1 tablet Active Carafate 1 GM TAKE ONE TABLET BY MOUTH FOUR TIMES DAILY 30 Active RESULTS No Results PROCEDURES Procedure Date Ordered Related Diagnosis Body Site [facility] VISIT ESTABLISHED PATIENT Dec 06, 2015 Office Visit, Est Pt., Level 3 Dec 06, 2015 IMMUNIZATIONS No Known Immunizations
--- OUTSIDE RECORDS SUMMARY | 2017-10-14 00:18 | XMS REPORT ---
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
--- OUTSIDE RECORDS SUMMARY | 2017-10-14 00:18 | XMS REPORT ---
Author Author ESTHELA SCOTT eClinical[employer] Address Unknown Phone Unavailable Care Team Providers Care Studio Technician Name Role Phone ESTHELA SCOTT CP Unavailable Allergies, Adverse Reactions, Alerts Substance Reaction Event Type Pentazocine-Naloxone itching Drug Allergy Oxycodone unable to take more than 1 Drug Allergy Morphine Abdominal pain with IV form Drug Allergy Problems Problem Type Condition Code Onset Dates Condition Status Assessment GERD (gastroesophageal reflux disease) K21.9 Active Assessment Arthralgia of right hip M25.551 Active Assessment Sciatica M54.30 Active Problem GERD (gastroesophageal reflux disease) K21.9 Active Problem Sciatica M54.30 Active 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 Problem Bone spur 726.91 Active Problem Hyperlipidemia 272.4 Active Problem Seborrheic keratoses L82.1 Active Problem CAD (coronary artery disease) I25.10 Active Assessment Hyperlipidemia 272.4 Active Assessment CAD (coronary artery disease) I25.10 Active Assessment 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 Oxycodone-Acetaminophen [facility] [address]-31 5-325 MG Orally every 6 hrs 1 tablet as needed Mobic [facility] [address]-26 7.5 MG Orally Once a day Feb 22, 2015 Apr 23, 2015 1 tablet Pravastatin Sodium [facility] [address]-28 20 MG Orally Once a day Oct 29, 2014 1 tablet hydromorphone NDC 0 2 mg Apr 27, 2014 2 Tablet by Oral route every 3 hours take 1-2 tab Tessalon Perles [facility] [address]-17 200 mg Orally Three times a day prn cough August 10, 2014 1 capsule as needed Nitrostat [facility] [address]-44 0.4 MG Sublingual 3 times a day prn as directed Procedures Procedure Coding System Code Date [facility] VISIT ESTABLISHED PATIENT CPT-4 G0467 Feb 22, 2015 X-RAY EXAM OF HIP CPT-4 38172 Feb 22, 2015 Office Visit, Est Pt., Level 3 CPT-4 06728 Feb 22, 2015 Vital Signs Date/Time: Feb 22, 2015 Temperature 97.5 F Weight 218.9 lbs Height 68 in BMI 33.28 Index Blood Pressure Diastolic 82 mmHg Blood Pressure Systolic 130 mmHg Cardiac Monitoring Heart Rate 88 bpm Results No Known Results Summary Purpose eClinicalWorks Submission
--- OUTSIDE RECORDS SUMMARY | 2017-10-14 00:18 | XMS REPORT ---
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
--- OUTSIDE RECORDS SUMMARY | 2017-10-14 00:18 | XMS REPORT ---
Author Author ESTHELA SCOTT Organization [employer] Address Unknown Phone Unavailable Care Team Providers Care Head Up Operator Name Role Phone ESTHELA SCOTT CP Unavailable [...]
--- OUTSIDE RECORDS SUMMARY | 2017-10-14 00:18 | XMS REPORT ---
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 [address]-53 5 MG Orally Once a day 1 tablet at bedtime as needed with food Percocet [facility] [address]-17 5-325 MG Orally every 6 hrs August 12, 2015 1 tablet [place] [address]-68 40 mg orally Once a day, for fry' s esoph. 1 tablet HydrOXYzine HCl [facility] [address]-08 25 MG Orally every 8 hrs Oct 25, 2015 1 tablet as needed Carafate [facility] 71388841262 1 GM TAKE ONE TABLET BY MOUTH FOUR TIMES DAILY Cyclobenzaprine HCl [facility] [address]-78 10 mg Three times a day Prn for muscle spasms 1 tablet Procedures Procedure Coding System Code Date Office Visit, Est Pt., Level 3 CPT-4 33278 Jan 18, 2016 [facility] VISIT ESTABLISHED PATIENT CPT-4 G0467 Jan 18, 2016 Vital Signs Date/Time: Jan 18, 2016 Cardiac Monitoring Heart Rate 80 bpm Weight 215 lbs Height 68 in BMI 32.69 Index Blood Pressure Diastolic 70 mmHg Blood Pressure Systolic 118 mmHg Results No Known Results Summary Purpose eClinicalWorks Submission
--- OUTSIDE RECORDS SUMMARY | 2017-10-14 00:18 | XMS REPORT ---
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 Problem Bone spur M77.9 Active Problem Hyperlipidemia E78.5 Active Problem Degeneration disease of medial meniscus, 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 Problem Sciatica M54.30 Active Problem Seborrheic keratoses L82.1 Active 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 Problem GERD (gastroesophageal reflux disease) K21.9 Active Assessment 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 Assessment GERD (gastroesophageal reflux disease) K21.9 Active Assessment Sciatica M54.30 Active Medications Medication Code System Code Instructions Start Date End Date Status Dosage Oxycodone-Acetaminophen [facility] [address]-95 5-325 MG Orally every 6 hrs 1 tablet as needed Nitrostat [facility] [address]-95 0.4 MG Sublingual 3 times a day prn as directed Pravastatin Sodium [facility] [address]-91 20 MG Orally Once a day Oct 29, 2014 1 tablet Mobic [facility] [address]-81 7.5 MG Orally Once a day Feb 22, 2015 Apr 23, 2015 1 tablet Calcium & Vit D3 Bone Health [facility] [address] ... Orally Once a day 16 oz hydromorphone ND 0 2 mg Apr 27, 2014 2 Tablet by Oral route every 3 hours take 1-2 tab Cyclobenzaprine HCl ND 13382565187 10 MG TAKE ONE TABLET BY MOUTH DAILY NEEDED FOR MUSCLE SPASM Pantoprazole Sodium [facility] 07811570469 40 MG orally once daily TAKE ONE TABLET BY MOUTH DAILY Protonix [facility] [address]-17 40 MG Orally Once a day 1 tablet Procedures Procedure Coding System Code Date Office Visit, Est Pt., Level 3 CPT-4 57156 Apr 01, 2015 [facility] VISIT ESTABLISHED PATIENT CPT-4 G0467 Apr 01, 2015 Vital Signs Date/Time: Apr 01, 2015 Temperature 97.7 F Weight 215.3 lbs Height 68 in BMI 32.73 Index Blood Pressure Diastolic 78 mmHg Blood Pressure Systolic 118 mmHg Cardiac Monitoring Heart Rate 76 bpm Results No Known Results Summary Purpose eClinicalWorks Submission
--- OUTSIDE RECORDS SUMMARY | 2017-10-14 00:18 | XMS REPORT ---
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 Active 889629887 Problem Type 2 diabetes mellitus without complication, without long-term current use of insulin E11.9 Active 978477489 Problem Trochanteric bursitis of right hip M70.61 Active 129997017920574 Problem Dyshidrotic eczema 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 Active 656119227 Problem Angina pectoris I20.9 Active 864507961 Problem Pain in right hip M25.551 Active 55074492 Problem Polyneuropathy G62.9 Active 34558345 Problem Drug allergy Z88.9 Active 668873131 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 040718886 Problem CAD (coronary artery disease) I25.10 Active 57280110 Problem Seborrheic keratoses L82.1 Active 039979403 Problem Sciatica of right side M54.31 Active 33833127 Problem Bone spur M77.9 Active 478555714135950 Problem Hyperlipidemia E78.5 Active 64883649 Problem GERD (gastroesophageal reflux disease) K21.9 Active 327296741 Problem Hypercholesteremia E78.0 Active 93925089 Problem Sciatica M54.30 Active 12861581 Problem Degeneration disease of medial meniscus, 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 83293741 ALLERGIES Substance Reaction Event Type Date Status Pentazocine-Naloxone itching Drug Allergy Mar, Active Cipro Unknown Drug Allergy Mar, Active Actifed palpitations Drug Allergy Mar, Active Oxycodone unable to take more than 1 Drug Allergy Mar, Active Morphine Abdominal pain with IV form Drug Allergy Mar, Active SOCIAL HISTORY No smoking Hx information available PLAN OF CARE Activity Details Follow Up 3 Weeks Reason:biopsy VITAL SIGNS Height 68 in 2016-04-17 Weight 214 lbs 2016-04-17 Temperature 98.1 degrees Fahrenheit 2016-04-17 Heart Rate 90 bpm 2016-04-17 Respiratory Rate 20 2016-04-17 BMI 32.54 kg/m2 2016-04-17 Blood pressure systolic 130 mmHg 2016-04-17 Blood pressure diastolic 82 mmHg 2016-04-17 MEDICATIONS Medication Instructions Dosage Frequency Start Date End Date Duration Status Cyclobenzaprine HCl 10 mg 1 tablet Active Lyrica 50 mg Orally Once a day 1 capsule 24h Mar, 21 days Active HydrOXYzine HCl 25 MG Orally every 8 hrs 1 tablet as needed 8h Oct, Active Melatonin 5 MG Orally Once a day 1 tablet at bedtime as needed with food 24h Active Percocet 5-325 MG Orally every 6 hrs 1 tablet as needed 6h July, Active Carafate 1 GM TAKE ONE TABLET BY MOUTH FOUR TIMES DAILY 30 Active Pantoprazole Sodium 40 mg orally Once a day, for fry's esoph. 1 tablet Active Lantiseptic Skin Protectant 50 % Externally 2 times a day apply thin layer to breast and groin excoriated areas 12h Mar, Apr, 6 Months Active Pravastatin Sodium 20 MG Orally Once a day 1 tablet 24h Oct, Active Nitrostat 0.4 MG Sublingual 3 times a day prn take one tablet as needed for chest pain- may repeat x 2 every 5 min. then go to ER Active RESULTS Name Result Date Reference Range UA LONG DIP (IN HOUSE) 2016-04-17 Lot # [id number] Exp date 02/08 Clarity clear Color yellow Odor none GLU negative BARTOLO negative KET negative SG 1.020 BLO negative pH 5.5 Protein negative URO 0.2 NIT negative NEHEMIAS trace Lot # Exp date PROCEDURES Procedure Date Ordered Related Diagnosis Body Site [facility] VISIT ESTABLISHED PATIENT Apr 17, 2016 Office Visit, Est Pt., Level 3 Apr 17, 2016 URINALYSIS, AUTO, W/O SCOPE Apr 17, 2016 IMMUNIZATIONS No Known Immunizations
--- OUTSIDE RECORDS SUMMARY | 2017-10-14 00:18 | XMS REPORT ---
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 Active 889972299 Problem Type 2 diabetes mellitus without complication, without long-term current use of insulin E11.9 Active 866842615 Problem Trochanteric bursitis of right hip M70.61 Active 625017911573392 Problem Dyshidrotic eczema L30.1 Active 292414322 Problem Angina pectoris I20.9 Active 716012132 Problem Pain in right hip M25.551 Active 87466191 Problem Polyneuropathy G62.9 Active 60157228 Problem Drug allergy Z88.9 Active 584255204 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 598271304 Problem CAD (coronary artery disease) I25.10 Active 65208061 Problem Seborrheic keratoses L82.1 Active 358705360 Problem Sciatica of right side M54.31 Active 13291610 Problem Bone spur M77.9 Active 902389538186205 Problem Hyperlipidemia E78.5 Active 89465725 Problem GERD (gastroesophageal reflux disease) K21.9 Active 174527776 Problem Hypercholesteremia E78.0 Active 84694965 Problem Sciatica M54.30 Active 76558763 Problem Degeneration disease of medial meniscus, 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 23415536 ALLERGIES Substance Reaction Event Type Date Status Pentazocine-Naloxone itching Drug Allergy Mar, Active Cipro Unknown Drug Allergy Mar, Active Actifed palpitations Drug Allergy Mar, Active Oxycodone unable to take more than 1 Drug Allergy Mar, Active Morphine Abdominal pain with IV form Drug Allergy Mar, Active SOCIAL HISTORY No smoking Hx information available PLAN OF CARE Activity Details Follow Up prn Reason:GINO VITAL SIGNS Height 68 in 2016-03-30 Blood pressure systolic 107 mmHg 2016-03-30 Blood pressure diastolic 66 mmHg 2016-03-30 MEDICATIONS Medication Instructions Dosage Frequency Start Date End Date Duration Status Pravastatin Sodium 20 MG Orally Once a day 1 tablet 24h Oct, Active Cyclobenzaprine HCl 10 mg 1 tablet Active Melatonin 5 MG Orally Once a day 1 tablet at bedtime as needed with food 24h Active Carafate 1 GM TAKE ONE TABLET BY MOUTH FOUR TIMES DAILY 30 Active Percocet 5-325 MG Orally every 6 hrs 1 tablet as needed 6h July, Active HydrOXYzine HCl 25 MG Orally every 8 hrs 1 tablet as needed 8h Oct, Active Celebrex 200 mg Orally Once a day 1 capsule 24h Mar, Mar, 10 days Active Nitrostat 0.4 MG Sublingual 3 times a day prn take one tablet as needed for chest pain- july repeat x 2 every 5 min. then go to ER Active Pantoprazole Sodium 40 mg orally Once a day, for fry's esoph. 1 tablet Active RESULTS No Results PROCEDURES Procedure Date Ordered Related Diagnosis Body Site LTD ORAL EVALUATION - PROBLEM FOCUS Mar 30, 2016 INTRAORL-PERIAPICAL 1 FILM 59862 Mar 30, 2016 IMMUNIZATIONS No Known Immunizations
--- OUTSIDE RECORDS SUMMARY | 2017-10-14 00:18 | XMS REPORT ---
Author RAHEEM Webster Organization [employer] Address Unknown Phone Unavailable Care Team Providers Care Network Operations Project Manager Name Role Phone RAHEEM MARINO CP Unavailable Allergies No Known Allergies [...] Instructions Start Date End Date Status Dosage HydrOXYzine HCl [facility] [address]-09 25 MG Orally every 8 hrs Oct 25, 2015 1 tablet as needed Results No Known Results Summary Purpose eClinicalWorks Submission
--- OUTSIDE RECORDS SUMMARY | 2017-10-14 00:18 | XMS REPORT ---
Author Author LEILANI HOLLINGSWORTH [facility] Address [address] [place] [address] Care Team Providers Care Starting Gate Driver Name Role Phone LEILANI HOLLINGSWORTH Unavailable PROBLEMS Type Condition ICD9-CM Code [id number] Code Onset Dates Condition Status SNOMED Code Problem Calculus of left kidney N20.0 Active 62066324 Problem Pain in left hip M25.552 Active 98340007 Problem Vaginal cancer C52 Active 759411194 Problem Type 2 diabetes mellitus without complication, without long-term current use of insulin E11.9 Active 766057648 Problem Trochanteric bursitis of right hip M70.61 Active 094235782875645 Problem Dyshidrotic eczema L30.1 Active 233833175 Problem Angina pectoris I20.9 Active 070075493 Problem Pain in right hip M25.551 Active 51738610 Problem Polyneuropathy G62.9 Active 21747205 Problem Drug allergy Z88.9 Active 558078680 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 179470490 Problem CAD (coronary artery disease) I25.10 Active 95917512 Problem Seborrheic keratoses L82.1 Active 485312199 Problem Sciatica of right side M54.31 Active 43704998 Problem Bone spur M77.9 Active 589418432506857 Problem Hyperlipidemia E78.5 Active 75330649 Problem GERD (gastroesophageal reflux disease) K21.9 Active 288739882 Problem Hypercholesteremia E78.0 Active 89853580 Problem Sciatica M54.30 Active 66280133 Problem Degeneration disease of medial meniscus, 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 78987458 ALLERGIES Substance Reaction Event Type Date Status [...] prn Reason: VITAL SIGNS Height 68 in 2016-03-30 Weight 208.3 lbs 2016-03-30 Temperature 97.9 degrees Fahrenheit 2016-03-30 Heart Rate 84 bpm 2016-03-30 Respiratory Rate 18 2016-03-30 BMI 31.67 kg/m2 2016-03-30 Blood pressure systolic 114 mmHg 2016-03-30 Blood pressure diastolic 78 mmHg 2016-03-30 MEDICATIONS Medication Instructions Dosage Frequency Start Date End Date Duration Status Percocet 5-325 MG Orally every 6 hrs 1 tablet as needed 6h July, Active HydrOXYzine HCl 25 MG Orally every 8 hrs 1 tablet as needed 8h Oct, Active Cyclobenzaprine HCl 10 mg 1 tablet Active Carafate 1 GM TAKE ONE TABLET BY MOUTH FOUR TIMES DAILY Active Gabapentin 300 MG Orally Three times a day 1 capsule 8h Mar, Active Pantoprazole Sodium 40 mg orally Once a day, for fry's esoph. 1 tablet Active Pravastatin Sodium 20 MG Orally Once a day 1 tablet 24h Oct, Active Celebrex 200 mg Orally Once a day 1 capsule 24h Mar, Mar, 10 days Active Melatonin 5 MG Orally Once a day 1 tablet at bedtime as needed with food 24h Active Nitrostat 0.4 MG Sublingual 3 times a day prn take one tablet as needed for chest pain- july repeat x 2 every 5 min. then go to ER Active RESULTS No Results PROCEDURES Procedure Date Ordered Related Diagnosis Body Site [facility] VISIT ESTABLISHED PATIENT Mar 30, 2016 Office Visit, Est Pt., Level 2 Mar 30, 2016 IMMUNIZATIONS No Known Immunizations
--- OUTSIDE RECORDS SUMMARY | 2017-10-14 00:19 | XMS REPORT ---
Author Author MELITON BUI Organization [facility] Address [address] [place] [address] Care Team Providers Care Keno Dealer Name Role Phone CAESAR BUINETTE Unavailable PROBLEMS Type Condition ICD9-CM Code QZX62-WD Code Onset Dates Condition Status SNOMED Code Problem Calculus of left kidney N20.0 Active 04360725 Problem Pain in right hip M25.551 Active 77857098 Problem Pain in left hip M25.552 Active 13889113 Problem Type 2 diabetes mellitus without complication, without long-term current use of insulin E11.9 Active 112258110 Problem Sciatica of right side M54.31 Active 51616275 Problem Dyshidrotic eczema L30.1 Active 065230939 Problem Angina pectoris I20.9 Active 928660364 Problem Vaginal cancer C52 Active 756785291 Problem Polyneuropathy G62.9 Active 37043106 Problem Drug allergy Z88.9 Active 640930913 Problem Seborrheic keratoses L82.1 Active 938652012 Problem Sciatica M54.30 Active 62126132 Problem Trochanteric bursitis of right hip M70.61 Active 676887848667927 Problem CAD (coronary artery disease) I25.10 Active 33473826 Problem Hyperlipidemia E78.5 Active 92906212 Problem Bone spur M77.9 Active 222123876080966 Problem GERD (gastroesophageal reflux disease) K21.9 Active 023348235 Problem Hypercholesteremia E78.0 Active 65154072 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
--- OUTSIDE RECORDS SUMMARY | 2017-10-14 00:19 | XMS REPORT ---
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 Active 193169675 Problem Polyneuropathy G62.9 Active 92284493 Problem Angina pectoris I20.9 Active 050535563 Problem Body mass index (BMI) of 32.0-32.9 in adult Z68.32 Active 176348309 Problem Dyshidrotic eczema L30.1 Active 832202089 Problem Trochanteric bursitis of right hip M70.61 Active 102397085586854 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 406986140 Problem CAD (coronary artery disease) I25.10 Active 28246763 Problem Seborrheic keratoses L82.1 Active 869103080 Problem GERD (gastroesophageal reflux disease) K21.9 Active 178495532 Problem Sciatica of right side M54.31 Active 97633737 ALLERGIES No Information ENCOUNTERS Encounter Location Date Diagnosis [facility] [address] [facility] [id number] [address] May, Acute non-recurrent maxillary sinusitis J01.00 and Acute suppurative otitis media of left ear without spontaneous rupture of tympanic membrane, recurrence not specified H66.002 [facility] [address] [facility] [id number] [address] May, Viral upper respiratory tract infection J06.9 [facility] [id number] [place] [address] 61172- 3305 19 Apr, [address] [address]- [address]13 19 Apr, 2017 Type 2 diabetes mellitus [...] index (BMI) of 32.0-32.9 in adult Z68.[address] [address]85- 1876 09 Apr, 2017 Type 2 diabetes mellitus without complication, without long- term current use of insulin E11.9 [place] [address] [place] [id number] [place] [address] 22305- 5377 02 Apr, 2017 Papule R23.8 and Actinic keratosis L57.0 [facility] [address] [place] [address]146 -3575 11 Mar, 2017 Cough R05 ; Encounter for immunization Z23 ; Other viral agents as the cause of diseases classified elsewhere B97.89 and Acute upper respiratory infection, unspecified J06.[address] [place] [address] 40397- 3037 14 Jan, 2017 Migraine without status migrainosus, not intractable, unspecified migraine type G43.909 [place] [id number] [place] [address] 18858- 9005 17 Sep, 2016 [place] [id number] [place] [address] 82890- 8884 Sep, Type 2 diabetes mellitus without complication, without long- term current use of insulin E11.9 ; Dehydration, mild E86.0 and Dyshidrotic eczema L30.1 [place] [address] [place] [id number] [place] [address] 65522- 2961 Sep, [place] [address] [place] [id number] [place] [address] 53458- 7412 Aug, Migraine without status migrainosus, not intractable, unspecified migraine type G43.909 [place] [address] 33920- 5764 July, [place] [address] [place] [id number] [place] [address] 74402- 1411 Jun, Medicare annual wellness visit, subsequent Z00.00 ; Hyperlipidemia E78.5 ; CAD (coronary artery disease) I25.10 and Vaginal cancer C52 [address] [address]- 4544 Jun, Sciatica M54.30 ; Pain in right hip M25.551 ; Dyshidrotic eczema L30.1 ; Candidiasis of breast B37.89 ; Right anterior knee pain M25.561 ; Hyperlipidemia E78.5 and Encounter for immunization Z23 [place] [address] [place] [id number] [place] [address] 86503- 9789 May, Ganglion cyst of joint of finger of left hand M67.442 [place] [address] [place] [id number] [place] [address] 91207- 7417 May, Migraine without status migrainosus, not intractable, unspecified migraine type G43.909 [place] [address] [place] [id number] [place] [address] 98877- 7420 May, [address] 59054- 4594 Apr, Skin lesion of back L98.9 and Encounter for immunization Z23 [place] [address] [place] [id number] [place] [address] 35387- 3316 Mar, Candidal dermatitis B37.2 ; Seborrheic keratoses L82.1 ; Polyneuropathy G62.9 and Dysuria R30.0 [facility] [address] [place] [address] [id number] Mar, Dental examination Z01.20 [place] [address] [place] [address] 18044- 9095 Mar, Neuritis M79.2 [place] [address] [place] [id number] [place] [address] 81540- 4704 Feb, Drug allergy Z88.9 [place] [address] [place] [id number] [place] [address] 95087- 9943 Feb, Dysuria R30.0 [place] [address] [id number] [place] [address] 86738- 0896 Feb, Acute cystitis with hematuria N30.01 [place] [address] [place] [id number] [place] [address] 48630- 3352 Feb, Dysuria R30.0 and Acute cystitis with hematuria N30.01 [place] [address] [place] [id number] [place] [address] 80191- 2431 Feb, Angina pectoris I20.9 ; Finger pain, left M79.645 ; 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 ; GERD (gastroesophageal reflux disease) K21.9 ; Pain in right hip M25.551 ; Pain in left hip M25.552 and Encounter for screening mammogram for breast cancer Z12.31 [place] [address] [id number] [place] [address] 02547- 6382 Dec, Right hip pain M25.551 [place] [address] [id number] [place] [address] 75139- 6934 Nov, GERD (gastroesophageal reflux disease) K21.9 ; Vaginal cancer C52 ; Pain in right hip M25.551 and Pain in left hip M25.552 [place] [address] [id number] [place] [address] 00129- 4700 Oct, Squamous cell carcinoma C80.1 [place] [address] [id number] [place] [address] 07751- 5263 Oct, Skin lesions L98.9 and Encounter for well woman exam Z01.419 [place] [address] [place] [id number] [place] [address] 43353- 8667 Oct, [place] [address] 60488- 1463 Sep, [facility] [place] [address] [id number] [place] [address] 18526 -5764 Aug, Atopic dermatitis, unspecified type L20.9 and Tick bite, initial encounter W57.XXXA [facility] [place] [id number] [place] [address] 19097 -9994 Aug, [place] [address] 32475- 9297 July, Pre-procedural laboratory examination Z01.812 [place] [address] [id number] [place] [address] 51845- 9386 July, Migraine without status migrainosus, not intractable, unspecified migraine type G43.909 ; Barretts esophagus without dysplasia K22.70 ; Sciatic nerve pain, left M54.32 and Localized swelling, mass and lump, head R22.0 [place] [address] [id number] [place] [address] 83316- 5827 May, [place] [address] [id number] [place] [address] 68049- 8400 May, [facility] [place] [id number] [place] [address] 29970 -4894 May, Unspecified fall, initial encounter W19.XXXA ; Unspecified place in unspecified non-institutional (private) residence as the place of occurrence of the external cause Y92.009 ; Mid back pain M54.9 ; Rib pain on right side R07.81 ; Buttock pain M79.1 and Post-traumatic headache, unspecified , not intractable G44.[address] 30198- 6280 Apr, Hypercholesteremia E78.0 ; Chest discomfort R07.89 ; 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 and History of sciatica Z86.[address] 19150- 7458 Mar, Calculus of left kidney N20.0 ; Hyperlipidemia E78.5 ; Degeneration disease of medial meniscus, 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 ; Right knee pain M25.561 ; Sciatica M54.30 ; GERD (gastroesophageal reflux disease) K21.9 and 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 [place] [address] 84166- 8253 Mar, [address] 97416- 4967 Mar, [place] [address] 09135- 4282 Mar, [address] 06018- 7230 Mar, Plantar fasciitis M72.[address] 62146- 8667 Mar, Degeneration disease of medial meniscus, 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 ; Right knee pain M25.561 ; Sciatica M54.30 ; GERD ( gastroesophageal reflux disease) K21.9 and 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 [place] [address] 49953- 6252 Feb, [address] 72880- 9437 Feb, Osteopenia M85.[address] 20472- 6451 Feb, Screening for malignant neoplasm of breast Z12.39 and Encounter for screening mammogram for malignant neoplasm of breast Z12.31 [facility] [address] 46650- 6584 Feb, Hip pain M25.559 [place] [address] 51269- 8272 Feb, [facility] [address] [place] [address] 23594- 2752 Feb, Arthralgia of right hip M25.551 ; Sciatica M54.30 ; GERD ( gastroesophageal reflux disease) K21.9 ; 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 ; CAD ( coronary artery disease) I25.10 and Hyperlipidemia 272.4 [facility] [address] 21199 -0181 Jan, Pharyngitis J02.9 ; Body aches R52 ; Cough R05 and Sinusitis J32.9 [place] [address] 98294- 1310 Nov, Contusion of foot 924.20 and Plantar fasciitis 728.71 [facility] [address] [id number] Oct, Dental examination V72.[address] 85328- 2394 Oct, [place] [address] 09222- 6707 Oct, Coronary artery disease 414.00 [place] [address] 72347- 6340 Oct, Zoster 053.[address] 28248- 3561 Sep, Pain in joint, ankle and foot 719.47 ; 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.85 ; Cervicalgia 723.1 ; Pain in joint, shoulder region 719.41 ; Coronary artery disease 414.00 and Need for shingles vaccine V04.89 [facility] [address] [place] [id number] [address] Sep, Dental examination V72.2 [facility] [address] [address] 2546 Sep, [facility] [address] [address] 2[address] Aug, [facility] [address] [place] [id number] [place] [address] [id number] July, Dental examination V72.2 [facility] [address] [place] [id number] [place] [address] 03504- 8676 July, Cough 786.2 [facility] [address] [place] [id number] [place] [address] 85620- 5406 July, Sinusitis 473.9 and Means esophagus 530.85 [facility] [address] [place] [id number] [place] [address] 65359- 2156 Jun, [facility] [address] 8[address] Jun, [facility] [address] [place] [address] 06468- 6170 May, [facility] [address] 9314 May, [facility] [address] [address]- 1748 May, [facility] [address] 1656 May, [facility] [address] [place] [id number] [place] [address] 102554- 3796 May, [facility] [address] [address]- 0506 May, [facility] [address] [place] [id number] [address]- 5345 May, [facility] [place] [facility] [address] [id number] [place] [address]- 9570 May, [facility] [place] [facility] [address] [id number] [place] [address]- 9841 Apr, [facility] [place] [facility] [address] [facility] [id number] [place] [address]- 0420 Apr, [facility] [place] [facility] [address] [id number] [place] [address]- 9339 Apr, [facility] [place] [facility] [address] [id number] [place] [address]- 3334 Mar, [facility] [place] [facility] [address] [id number] [place] [address]- 7224 Mar, [facility] [place] [facility] [address] [facility] [id number] [place] [address]- 7836 Mar, [facility] [place] [facility] [address] [facility] [id number] [place] [address]- 9608 Mar, [facility] [place] [facility] [address] [facility] [id number] [place] [address]- 3622 Feb, [facility] [place] [facility] [address] [facility] [id number] [place] [address]- 5927 Feb, [facility] [place] [facility] [address] [facility] [id number] [place] [address]- 6993 Feb, [facility] [place] [facility] [address] [id number] [place] [address]- 7956 Feb, [facility] [place] [facility] [address] [id number] [place] [address]- 5470 Feb, [facility] [place] [facility] [address] [facility] [id number] [place] [address]- 3715 Feb, [facility] [place] [facility] [address] [facility] [id number] [place] [address]646 Feb, [facility] [place] [facility] [address] [id number] [place] [address]- 2804 Jan, [facility] [place] [facility] [address] [id number] [place] [address]- 6097 Jan, [facility] [place] [facility] [address] [id number] [place] [address]- 9357 Jan, [facility] [place] [facility] [address] [id number] [place] [address]- 8130 Jan, [facility] [place] [facility] [address] [id number] [place] [address]- 7413 Dec, [facility] [place] [facility] [address] [id number] [place] [address]- 1135 Dec, [facility] [place] [facility] [address] [id number] [place] [address]- 3720 Dec, [facility] [place] [facility] [address] [id number] [place] [address]- 3735 Dec, [facility] [place] [facility] [address] [id number] [place] [address]- 3085 Dec, [facility] [place] [facility] [address] [id number] [place] [address]- 8414 16 Dec, 2013 [facility] [place] [facility] [address] [id number] [place] [address]- 4566 24 Nov, 2013 [facility] [place] [facility] [address] [id number] [place] [address]- 6090 23 Nov, 2013 [facility] [place] [facility] [address] [id number] [place] [address]- 2540 23 Sep, 2013 [facility] [place] [facility] [address] [id number] [place] [address]- 2446 17 Sep, 2013 [facility] [place] [facility] [address] [id number] [place] [address]- 2066 17 Sep, 2013 [facility] [place] [facility] [address] [id number] [place] [address]- 9602 Nov, [facility] [place] [facility] [address] [id number] [place] [address]- 0825 Nov, [facility] [place] [facility] [address] [id number] [place] [address]- 6887 Oct, [facility] [place] [facility] [address] [id number] [place] [address]- 9510 Oct, [facility] [place] [facility] [address] [id number] [place] [address]- 8409 Oct, [facility] [place] [facility] [address] [id number] [place] [address]- 5912 Oct, [facility] [place] [facility] [address] [id number] [place] [address]- 4752 Oct, [facility] [place] [facility] [address] [id number] [place] [address]- 3614 Oct, [facility] [place] [facility] [address] [id number] [place] [address]- 2572 Oct, [facility] [place] [facility] [address] [id number] [place] [address]- 8177 Oct, [facility] [place] [facility] [address] [id number] [place] [address]- 5016 Oct, [facility] [place] [facility] [address] [id number] [place] [address]- 8789 Sep, [facility] [place] [facility] [address] [id number] [place] [address]- 5798 Sep, [facility] [place] [facility] [address] [id number] [place] [address]- 9791 Sep, [facility] [place] [facility] [address] [id number] [place] [address]- 3253 Sep, [facility] [place] [facility] [address] [id number] [place] [address]- 2340 Sep, [facility] [place] [facility] [address] [id number] [place] [address]- 9230 Sep, [facility] [place] [facility] [address] [id number] [place] [address]- 4509 Sep, [facility] [place] [facility] [address] [id number] [place] [address]- 2021 Sep, [facility] [place] [facility] [address] [id number] [place] [address]- 0702 Sep, [facility] [place] [facility] [address] [id number] [place] [address]- 1317 Aug, [facility] [place] [facility] [address] [id number] [place] [address]- 0607 Aug, [facility] [place] [facility] [address] [id number] [place] [address]- 7542 Jun, [facility] [place] [facility] [address] [id number] [place] [address]- 4243 Jun, [facility] [place] [facility] [address] [id number] [place] [address]- 4750 May, [facility] [place] [facility] [address] [id number] [place] [address]- 6653 May, [facility] [place] [facility] [address] [facility] [id number] [place] [address]- 2537 Apr, [facility] [place] [facility] [address] [id number] [place] [address]- 6776 Apr, [facility] [place] [facility] [address] [facility] [id number] [place] [address]- 6424 Apr, [facility] [place] [facility] [address] [id number] [place] [address]- 0227 Apr, [facility] [place] [facility] [address] [facility] [id number] [place] [address]- 7823 Feb, [facility] [place] [facility] [address] [facility] [id number] [place] [address]- 9438 Feb, [facility] [address] [id number] [place] [address]- 1132 Jan, [facility] [place] [facility] [address] [id number] [place] [address]- 2536 Jan, [facility] [place] [facility] [address] [id number] [place] [address]- 8516 Nov, [facility] [place] [facility] [address] [id number] [place] [address]- 6086 Sep, [facility] [place] [facility] [address] [id number] [place] [address]- 5496 Sep, [facility] [place] [facility] [address] [id number] [place] [address]- 2496 Aug, [facility] [place] [facility] [address] [id number] [place] [address]- 7506 Aug, [facility] [place] [facility] [address] [id number] [place] [address]- 5356 Aug, [facility] [place] [facility] [address] [id number] [place] [address]- 2046 July, [facility] [place] [facility] [address] [id number] [place] [address]- 8336 July, [facility] [place] [facility] [address] [id number] [place] [address]- 7216 July, [facility] [place] [facility] [address] [id number] [address]- 8466 May, [facility] [place] [facility] [address] [id number] [place] [address]- 0136 May, [facility] [place] [facility] [address] [id number] [place] [address]- 1456 Jan, [facility] [place] [facility] [address] [id number] [place] [address]- 9926 Jan, [facility] [place] [facility] [address] [id number] [place] [address]- 6873 Jan, [facility] [address] [address]- 8895 Jan, [facility] [id number] [address] Jan, [facility] [id number] [address] Jan, [facility] [id number] [place] [address] Jan, [facility] [id number] [place] [address] Jan, [facility] [id number] [place] [address] Dec, [facility] [id number] [place] [address] Dec, [facility] [id number] [address] Aug, [facility] [id number] [place] [address] July, [facility] [id number] [address] Jun, [facility] [id number] [address] May, [facility] [id number] [address] May, [facility] [id number] [address] May, [facility] [id number] [address] Jun, IMMUNIZATIONS No Known Immunizations SOCIAL HISTORY Never Assessed REASON FOR VISIT Needs referral PLAN OF CARE VITAL SIGNS MEDICATIONS Unknown Medications RESULTS No Results PROCEDURES No Known procedures [...]
--- OUTSIDE RECORDS SUMMARY | 2017-10-14 00:19 | XMS REPORT ---
Author Author MELITON BUI Organization [facility] Address [address] [place] [address] Care Team Providers Care Manager Chinese Name Role Phone CAESAR BUINETTE Unavailable PROBLEMS Type Condition ICD9-CM Code [id number] Code Onset Dates Condition Status SNOMED Code Problem Calculus of left kidney N20.0 Active 65568065 Problem Pain in right hip M25.551 Active 18261879 Problem Pain in left hip M25.552 Active 85805874 Problem Type 2 diabetes mellitus without complication, without long-term current use of insulin E11.9 Active 357808993 Problem Sciatica of right side M54.31 Active 46021226 Problem Dyshidrotic eczema L30.1 Active 391046852 Problem Angina pectoris I20.9 Active 821295970 Problem Vaginal cancer C52 Active 960731207 Problem Polyneuropathy G62.9 Active 72179923 Problem Drug allergy Z88.9 Active 376543222 Problem Seborrheic keratoses L82.1 Active 574667681 Problem Sciatica M54.30 Active 03995380 Problem Trochanteric bursitis of right hip M70.61 Active 603197144066944 Problem CAD (coronary artery disease) I25.10 Active 07274983 Problem Hyperlipidemia E78.5 Active 94569800 Problem Bone spur M77.9 Active 350381738851747 Problem GERD (gastroesophageal reflux disease) K21.9 Active 349156101 Problem Hypercholesteremia E78.0 Active 87915909 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 174212538 Problem Degeneration disease of medial meniscus, 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 10414587 ALLERGIES Substance Reaction Event Type Date Status Pentazocine-Naloxone itching Drug Allergy Feb, Active Actifed palpitations Drug Allergy Feb, Active Oxycodone unable to take more than 1 Drug Allergy Feb, Active Morphine Abdominal pain with IV form Drug Allergy Feb, Active SOCIAL HISTORY No smoking Hx information available PLAN OF CARE Activity Details Follow Up 2 Weeks Reason:uti VITAL SIGNS Height 68 in 2016-03-14 Weight 210.0 lbs 2016-03-14 Temperature 97.7 degrees Fahrenheit 2016-03-14 Heart Rate 80 bpm 2016-03-14 Respiratory Rate 20 2016-03-14 BMI 31.93 kg/m2 2016-03-14 Blood pressure systolic 150 mmHg 2016-03-14 Blood pressure diastolic 81 mmHg 2016-03-14 MEDICATIONS Medication Instructions Dosage Frequency Start Date End Date Duration Status Cipro 500 MG Orally Twice a day 1 tablet 12h Feb, Feb, 10 day(s) Active Melatonin 5 MG Orally Once a day 1 tablet at bedtime as needed with food 24h Active Cyclobenzaprine HCl 10 mg 1 tablet Active Carafate 1 GM TAKE ONE TABLET BY MOUTH FOUR TIMES DAILY Active Percocet 5-325 MG Orally every 6 hrs 1 tablet as needed 6h July, Active Nitrostat 0.4 MG Sublingual 3 times a day prn take one tablet as needed for chest pain- july repeat x 2 every 5 min. then go to ER Active Pravastatin Sodium 20 MG Orally Once a day 1 tablet 24h Oct, Active HydrOXYzine HCl 25 MG Orally every 8 hrs 1 tablet as needed 8h Oct, Active Pyridium 200 mg Orally Three times a day 1 tablet after meals 8h Feb, Feb, 03 days Active Pantoprazole Sodium 40 mg orally Once a day, for fry's esoph. 1 tablet Active RESULTS Name Result Date Reference Range UA LONG DIP (IN HOUSE) 2016-03-14 Lot # [id number] Exp date Clarity Cloudy Color Yellow Odor None GLU Negative BARTOLO Negative KET Negative SG 1.025 BLO 1+ pH 5.5 Protein Negatiave URO 0.2 NIT Positive NEHEMIAS 2+ Lot # [id number] Exp date CULTURE, URINE 2016-03-14 Urine Culture, Routine Final report Result 1 Klebsiella pneumoniae Antimicrobial Susceptibility PROCEDURES Procedure Date Ordered Related Diagnosis Body Site URINALYSIS, AUTO, W/O SCOPE Mar 14, 2016 LAB NOT BILLED BY [facility] Mar 14, 2016 Office Visit, Est Pt., Level 3 Mar 14, 2016 FQ VISIT ESTABLISHED PATIENT Mar 14, 2016 THER/PROPH/DIAG INJ, SC/IM Mar 14, 2016 ROCEPHIN 1 GM (IM) Mar 14, 2016 IMMUNIZATIONS Vaccine Route Administration Date Status ROCEPHIN 1 GM (IM) IM Intramuscular Mar 14, 2016 Administered
--- OUTSIDE RECORDS SUMMARY | 2017-10-14 00:19 | XMS REPORT ---
Author Author ESTHELA SCOTT Organization [employer] Address Unknown Phone Unavailable Care Team Providers Care Contract Negotiation Manager Name Role Phone ESTHELA SCOTT CP Unavailable [...]
--- OUTSIDE RECORDS SUMMARY | 2017-10-14 00:19 | XMS REPORT ---
Author Author UZAIR HESS [facility] [employer] Address Unknown Phone Unavailable Care Team Providers Care Roulette Dealer Name Role Phone UZAIR HESS CP Unavailable Allergies, Adverse Reactions, Alerts Substance Reaction Event Type Oxycodone unable to take more than 1 Drug Allergy Morphine Abdominal pain with IV form Drug Allergy Problems Problem Type Condition Code Onset Dates Condition Status Problem Other [...] Active Problem Acute pharyngitis 462 Active Assessment Body aches R52 Active Problem Coronary artery disease 414.00 Active Problem Urinary tract infection, site not specified 599.0 Active Assessment Cough R05 Active Problem Sciatica 724.3 Active Assessment Sinusitis J32.9 Active Problem Esophageal reflux 530.81 Active Problem [...] due to unspecified cause 692.9 Active Assessment Pharyngitis J02.9 Active Problem Acute bronchitis 466.0 Active Problem Special screening for osteoporosis V82.81 Active Problem Pain in joint, lower leg 719.46 Active Problem Cough 786.2 Active Problem Postnasal drip 784.91 Active Medications Medication Code System Code Instructions Start Date End Date Status Dosage pantoprazole NDC 0 40 mg oral Once a day June 09, 2014 Mar 05, 2015 take 1 tablet (40 mg) by oral route once daily Dicyclomine HCl [facility] 90328417909 10 MG TAKE ONE CAPSULE BY MOUTH THREE TIMES DAILY NEEDED FOR ABDOMINAL PAIN Flexeril NDC 0 10 mg Apr 27, 2014 1 tablet by Oral route 1 time per day PRN muscle spasm. Pravastatin Sodium [facility] [address]-78 20 MG Orally Once a day Oct 29, 2014 1 tablet Carafate [facility] 56036625086 1 GM TAKE ONE TABLET BY MOUTH FOUR TIMES DAILY Levaquin [facility] [address]-90 500 MG Orally Once a day Jan 28, 2015 Feb 07, 2015 1 tablet Procedures Procedure Coding System Code Date INFLUENZA ASSAY W/OPTIC CPT-4 64903 Jan 28, 2015 STREP A ASSAY W/OPTIC CPT-4 46308 Jan 28, 2015 MEASURE BLOOD OXYGEN LEVEL CPT-4 54032 Jan 28, 2015 Office Visit, Est Pt., Level 3 CPT-4 45735 Jan 28, 2015 [facility] VISIT ESTABLISHED PATIENT CPT-4 G0467 Jan 28, 2015 Vital Signs Date/Time: Jan 28, 2015 Temperature 98.1 F Weight 218 lbs Height 68 in Oximetry 98 % Blood Pressure Diastolic 80 mmHg Blood Pressure Systolic 130 mmHg Cardiac Monitoring Heart Rate 76 bpm BMI 33.14 Index Results Name Result Date Reference Range Unit Abnormality Flag INFLUENZA A & B (IN HOUSE) Summary Purpose [employer] Submission
--- OUTSIDE RECORDS SUMMARY | 2017-10-14 00:20 | XMS REPORT ---
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
--- OUTSIDE RECORDS SUMMARY | 2017-10-14 00:20 | XMS REPORT ---
Author Author JANES PECK Organization [facility] Address [address] [place] [address] Care Team Providers Care Diesel Instructor Name Role Phone JANES PECK Unavailable PROBLEMS Type Condition ICD9-CM Code [id number] Code Onset Dates Condition Status SNOMED Code Problem Calculus of left kidney N20.0 Active 75264046 Problem Pain in left hip M25.552 Active 62769251 Problem Vaginal cancer C52 Active 567253470 Problem Type 2 diabetes mellitus without complication, without long-term current use of insulin E11.9 Active 977741876 Problem Trochanteric bursitis of right hip M70.61 Active 330013457572740 Problem Dyshidrotic eczema L30.1 Active 437472736 Problem Angina pectoris I20.9 Active 464960324 Problem Pain in right hip M25.551 Active 00362869 Problem Polyneuropathy G62.9 Active 57645628 Problem Drug allergy Z88.9 Active 807021102 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 543845158 Problem CAD (coronary artery disease) I25.10 Active 81439730 Problem Seborrheic keratoses L82.1 Active 442442191 Problem Sciatica of right side M54.31 Active 47437534 Problem Bone spur M77.9 Active 883940366579348 Problem Hyperlipidemia E78.5 Active 41569827 Problem GERD (gastroesophageal reflux disease) K21.9 Active 174481246 Problem Hypercholesteremia E78.0 Active 07850115 Problem Sciatica M54.30 Active 28533627 Problem Degeneration disease of medial meniscus, 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
--- OUTSIDE RECORDS SUMMARY | 2017-10-14 00:20 | XMS REPORT ---
Author Author ANDREZ NAYLOR [facility] [employer] Address Unknown Phone Unavailable Care Team Providers Care Facilities Project Manager Name Role Phone ANDREZ NAYLOR Unavailable Allergies, Adverse Reactions, Alerts Substance Reaction Event Type Pentazocine-Naloxone itching Drug Allergy Oxycodone unable to take more than 1 Drug Allergy Morphine Abdominal pain with IV form Drug Allergy Problems Problem Type Condition Code Onset Dates Condition Status Assessment Screening for malignant neoplasm of breast Z12.39 Active Assessment Encounter for screening mammogram for malignant neoplasm of breast Z12.31 Active Problem Hyperlipidemia E78.5 Active 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 Protonix [facility] [address]-10 40 MG Orally Once a day 1 tablet Mobic [facility] [address]-39 7.5 MG Orally Once a day Feb 22, 2015 Apr 23, 2015 1 tablet Oxycodone-Acetaminophen [facility] [address]-71 5-325 MG Orally every 6 hrs 1 tablet as needed Nitrostat [facility] [address]-39 0.4 MG Sublingual 3 times a day prn as directed Procedures Procedure Coding System Code Date Office Visit, Est Pt., Level 3 CPT-4 21783 Mar 08, 2015 [facility] VISIT ESTABLISHED PATIENT CPT-4 G0467 Mar 08, 2015 Vital Signs Date/Time: Mar 08, 2015 Temperature 98.0 F Weight 219.8 lbs Height 68 in BMI 33.42 Index Blood Pressure Diastolic 68 mmHg Blood Pressure Systolic 120 mmHg Cardiac Monitoring Heart Rate 74 bpm Results No Known Results Summary Purpose [employer] Submission
--- OUTSIDE RECORDS SUMMARY | 2017-10-14 00:20 | XMS REPORT ---
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
--- OUTSIDE RECORDS SUMMARY | 2017-10-14 00:20 | XMS REPORT ---
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
--- OUTSIDE RECORDS SUMMARY | 2017-10-14 00:20 | XMS REPORT ---
Author Author JANES PECK Organization [facility] Address [address] [place] [address] Care Team Providers Care Special Ed Assistant Name Role Phone JANES PECK Unavailable PROBLEMS Type Condition ICD9-CM Code [id number] Code Onset Dates Condition Status SNOMED Code Problem Calculus of left kidney N20.0 Active 07399465 Problem Pain in left hip M25.552 Active 17702496 Problem Vaginal cancer C52 Active 419820655 Problem Type 2 diabetes mellitus without complication, without long-term current use of insulin E11.9 Active 169195318 Problem Trochanteric bursitis of right hip M70.61 Active 717633909906142 Problem Dyshidrotic eczema L30.1 Active 533087298 Problem Angina pectoris I20.9 Active 768115022 Problem Pain in right hip M25.551 Active 33107525 Problem Polyneuropathy G62.9 Active 87902884 Problem Drug allergy Z88.9 Active 035779279 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 227691261 Problem CAD (coronary artery disease) I25.10 Active 66101585 Problem Seborrheic keratoses L82.1 Active 682711979 Problem Sciatica of right side M54.31 Active 71019631 Problem Bone spur M77.9 Active 206326491513151 Problem Hyperlipidemia E78.5 Active 93664707 Problem GERD (gastroesophageal reflux disease) K21.9 Active 714821220 Problem Hypercholesteremia E78.0 Active 63608758 Problem Sciatica M54.30 Active 20244738 Problem Degeneration disease of medial meniscus, 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
--- OUTSIDE RECORDS SUMMARY | 2017-10-14 00:21 | XMS REPORT ---
Author Author JANES PECK Organization [employer] Address Unknown Phone Unavailable Care Team Providers Care Professional Healthcare Representative Name Role Phone JANES PECK CP Unavailable Allergies, Adverse Reactions, Alerts Substance Reaction Event Type Pentazocine-Naloxone itching Drug Allergy Actifed palpitations Drug Allergy Oxycodone unable to take more than 1 Drug Allergy Morphine Abdominal pain with IV form Drug Allergy Problems Problem Type Condition Code Onset Dates Condition Status Problem CAD (coronary artery disease) I25.10 Active Problem Sciatica M54.30 Active Problem Seborrheic keratoses L82.1 Active Assessment Encounter for well woman exam Z01.419 Active Assessment Skin lesions L98.9 Active Problem Degeneration disease of medial meniscus, 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 Orally Once a day 16 oz Carafate [facility] 80776003904 1 GM TAKE ONE TABLET BY MOUTH FOUR TIMES DAILY Percocet [facility] [address]-00 5-325 MG Orally every 6 hrs August 12, 2015 1 tablet as needed Premarin [facility] [address]-24 0.625 MG/GM Vaginal twice a week Nov 03, 2015 apply pea size amount to vagina Melatonin [facility] [address]-38 5 MG Orally Once a day 1 tablet at bedtime as needed with food Triamcinolone Acetonide [facility] [address]-97 0.1 % Externally Twice a day September 14, 2015 1 application to affected area Cetirizine HCl [facility] [address]-92 10 mg Orally Once a day September 14, 2015 Mar 12, 2016 1 tablet Pantoprazole Sodium [facility] [address]-85 40 mg orally Once a day, for fry' s esoph. 1 tablet Cyclobenzaprine HCl [facility] [address]-27 10 mg Three times a day Prn for muscle spasms 1 tablet Nitrostat [facility] [address]-69 0.4 MG Sublingual 3 times a day prn as directed HydrOXYzine HCl [facility] [address]-02 25 MG Orally every 8 hrs Oct 25, 2015 1 tablet as needed Mobic [facility] [address]-66 7.5 MG Orally Once a day Feb 22, 2015 1 tablet Pravastatin Sodium [facility] [address]-18 20 MG Orally Once a day Oct 29, 2014 1 tablet Procedures Procedure Coding System Code Date Office Visit, Est Pt., Level 3 CPT-4 90429 Nov 03, 2015 [facility] VISIT ESTABLISHED PATIENT CPT-4 G0467 Nov 03, 2015 Vital Signs Date/Time: Nov 03, 2015 Cardiac Monitoring Heart Rate 77 bpm Weight 213.9 lbs Height 68 in BMI 32.52 Index Blood Pressure Diastolic 78 mmHg Blood Pressure Systolic 131 mmHg Results No Known Results Summary Purpose [employer] Submission
--- OUTSIDE RECORDS SUMMARY | 2017-10-14 00:21 | XMS REPORT ---
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 Active 108359657 Problem Polyneuropathy G62.9 Active 63849853 Problem Angina pectoris I20.9 Active 687436532 Problem Body mass index (BMI) of 32.0-32.9 in adult Z68.32 Active 324675911 Problem Dyshidrotic eczema L30.1 Active 157425033 Problem Trochanteric bursitis of right hip M70.61 Active 139465736878310 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 371105709 Problem CAD (coronary artery disease) I25.10 Active 33356345 Problem Seborrheic keratoses L82.1 Active 427598664 Problem GERD (gastroesophageal reflux disease) K21.9 Active 866002967 Problem Sciatica of right side M54.31 Active 47956045 ALLERGIES No Information ENCOUNTERS Encounter Location Date Diagnosis [facility] [address] [facility] [id number] [address] May, Viral upper respiratory tract infection J06.9 [facility] [address] [id number] [address] Apr, [facility] [address] [facility] [id number], [place] [address] 19 Feb, 2018 Type 2 diabetes mellitus with diabetic neuropathic [...] index (BMI) of 32.0-32.9 in adult Z68.32 [place] [address] [address] 09 Apr, 2017 Type 2 diabetes mellitus without complication, without long- term current use of insulin E11.9 [place] [address] [place] [id number] [place] [address]92- 3849 02 Apr, 2017 Papule R23.8 and Actinic keratosis L57.0 [facility] [address] [address] 11 Mar, 2017 Cough R05 ; Encounter for immunization Z23 ; Other viral agents as the cause of diseases classified elsewhere B97.89 and Acute upper respiratory infection, unspecified J06.9 [place] [id number] [place] [address] 7[address]26- 9814 14 Jan, 2017 Migraine without status migrainosus, not intractable, unspecified migraine type G43.909 [place] [id number] [place] [address] 24400- 5531 17 Sep, 2016 [place] [address] 6[address]- 50[address] 13 Sep, 2016 Type 2 diabetes mellitus without complication, without long- term current use of insulin E11.9 ; Dehydration, mild E86.0 and Dyshidrotic eczema L30.1 [facility] [id number] [place] [address] 79795- 3732 Sep, [place] [address] [id number] [place] [address] 52250- 4992 Aug, Migraine without status migrainosus, not intractable, unspecified migraine type G43.909 [place] [address] [address]- 9[address] July, [place] [address] 0[address]67- [address] Jun, Medicare annual wellness visit, subsequent Z00.00 ; Hyperlipidemia E78.5 ; CAD (coronary artery disease) I25.10 and Vaginal cancer C52 [place] [address] 9[address]96- 6101 Jun, Sciatica M54.30 ; Pain in right hip M25.551 ; Dyshidrotic eczema L30.1 ; Candidiasis of breast B37.89 ; Right anterior knee pain M25.561 ; Hyperlipidemia E78.5 and Encounter for immunization Z23 [place] [address] [address] 49[address] May, Ganglion cyst of joint of finger of left hand M67.442 [place] [address] [address] 4399 May, Migraine without status migrainosus, not intractable, unspecified migraine type G43.909 [place] [address] 43110- 9012 May, [place] [address] 91220- 1282 Apr, Skin lesion of back L98.9 and Encounter for immunization Z23 [place] [address] [address] 59[address] Mar, Candidal dermatitis B37.2 ; Seborrheic keratoses L82.1 ; Polyneuropathy G62.9 and Dysuria R30.0 [facility] [address] [place] [id number] Mar, Dental examination Z01.20 [place] [id number] [place] [address] 71711- 8264 06 Mar, 2016 Neuritis M79.2 [place] [id number] [place] [address] 65141- 9583 30 Feb, 2016 Drug allergy Z88.9 [place] [id number] [place] [address] 35678- 5779 Feb, Dysuria R30.0 [place] [address] 39219- 5949 Feb, Acute cystitis with hematuria N30.01 [place] [address] 70152- 9078 Feb, Dysuria R30.0 and Acute cystitis with hematuria N30.01 [place] [id number] [place] [address] 26064- 0758 Feb, Angina pectoris I20.9 ; Finger pain, left M79.645 ; 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 ; GERD (gastroesophageal reflux disease) K21.9 ; Pain in right hip M25.551 ; Pain in left hip M25.552 and Encounter for screening mammogram for breast cancer Z12.31 [place] [id number] [place] [address] 69154- 9997 Dec, Right hip pain M25.551 [place] [id number] [place] [address] 39686- 7173 13 Nov, 2015 GERD (gastroesophageal reflux disease) K21.9 ; Vaginal cancer C52 ; Pain in right hip M25.551 and Pain in left hip M25.552 [place] [id number] [place] [address] 39277- 0032 19 Oct, 2015 Squamous cell carcinoma C80.1 [place] [id number] [place] [address] 95711- 5605 11 Oct, 2015 Skin lesions L98.9 and Encounter for well woman exam Z01.419 [place] [id number] [place] [address] 83563- 2513 Oct, [place] [address] 83032- [address] Sep, [facility] IN [address] [address] Aug, Atopic dermatitis, unspecified type L20.9 and Tick bite, initial encounter W57.XXXA [facility] [address] [address] Aug, [address] [address] July, Pre-procedural laboratory examination Z01.[address] 33[address]- 8[address] July, Migraine without status migrainosus, not intractable, unspecified migraine type G43.909 ; Barretts esophagus without dysplasia K22.70 ; Sciatic nerve pain, left M54.32 and Localized swelling, mass and lump, head R22.[address] 23407- 1739 May, [place] [id number] [place] [address] 87930- 7544 May, [facility] [address] [place] [id number] [place] [address] May, Unspecified fall, initial encounter W19.XXXA ; Unspecified place in unspecified non-institutional (private) residence as the place of occurrence of the external cause Y92.009 ; Mid back pain M54.9 ; Rib pain on right side R07.81 ; Buttock pain M79.1 and Post-traumatic headache, unspecified , not intractable G44.309 [place] [id number] [place] [address] 31751- 4202 Apr, Hypercholesteremia E78.0 ; Chest discomfort R07.89 ; 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 and History of sciatica Z86.69 [place] [id number] [place] [address] 76459- 8366 Mar, Calculus of left kidney N20.0 ; Hyperlipidemia E78.5 ; Degeneration disease of medial meniscus, 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 ; Right knee pain M25.561 ; Sciatica M54.30 ; GERD (gastroesophageal reflux disease) K21.9 and 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 [place] [address] 15441- 0621 Mar, [place] [address] 76535- 8260 Mar, [place] [address] 82178- 6455 Mar, [address] [address]206- 0674 Mar, Plantar fasciitis M72.[address] 95325- 5812 Mar, Degeneration disease of medial meniscus, 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 ; Right knee pain M25.561 ; Sciatica M54.30 ; GERD ( gastroesophageal reflux disease) K21.9 and 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 [place] [id number] [place] [address] 43637- 9707 Feb, [address] 29076- 2093 Feb, Osteopenia M85.[address] 06652- 6667 Feb, Screening for malignant neoplasm of breast Z12.39 and Encounter for screening mammogram for malignant neoplasm of breast Z12.31 [place] [id number] [place] [address] 94551- 4310 Feb, Hip pain M25.559 [place] [address] 1768 Feb, [place] [address] 97[address]- 2274 Feb, Arthralgia of right hip M25.551 ; Sciatica M54.30 ; GERD ( gastroesophageal reflux disease) K21.9 ; 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 ; CAD ( coronary artery disease) I25.10 and Hyperlipidemia 272.4 [facility] [address] [address] Jan, Pharyngitis J02.9 ; Body aches R52 ; Cough R05 and Sinusitis J32.[address] 76[address]- 7034 Nov, Contusion of foot 924.20 and Plantar fasciitis 728.71 [facility] [address] [id number] Oct, Dental examination V72.2 [place] [address] 59351- 7661 Oct, [address] 51216- 0297 Oct, Coronary artery disease 414.[address] 34464- 3333 Oct, Zoster 053.9 [place] [address] 64605- 9406 Sep, Pain in joint, ankle and foot 719.47 ; 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.85 ; Cervicalgia 723.1 ; Pain in joint, shoulder region 719.41 ; Coronary artery disease 414.00 and Need for shingles vaccine V04.89 [facility] [address] [id number] [place] [id number] Sep, Dental examination V72.2 [place] [address] 47377- 3954 Sep, [facility] [address], [place] [address]- [address] Aug, [facility] [address] [id number] July, Dental examination V72.2 [facility] [address] [id number] [address] 38[address] July, Cough 786.2 [facility] [id number] [place] [address] 16406- 4737 July, Sinusitis 473.9 and Means esophagus 530.85 [facility] [id number] [place] [address] 22951- 3057 Jun, [facility] [id number] [place] [address] 80267- 8525 Jun, [facility] [id number] [place] [address] 87605- 8812 May, [facility] [address] [address] May, [facility] [address], [place] [address]- 7214 May, [facility] [address] [address] May, [facility] [address] 8320 May, [facility] [address], [place] [address]- 3645 May, [facility] [address], [place] [address]- 2432 May, [facility] [address], [place] [address]- 9026 May, [facility] [address], [place] [address]- 0525 Apr, [facility] [place] [facility] [address] [id number] [place] [address]- 6487 Apr, [facility] [place] [facility] [address] [id number] [place] [address]- 6354 Apr, [facility] [place] [facility] [address] [facility] [id number] [place] [address]- 0127 Mar, [facility] [place] [facility] [address] [id number] [place] [address]- 9470 Mar, [facility] [place] [facility] [address] [id number] [place] 6[address] Mar, [facility] [place] [facility] [address] [facility] [id number] [place] [address]- 8447 Mar, [facility] [place] [facility] [address] [id number] [place] [address]- 9426 Feb, [facility] [place] [facility] [address] [id number] [place] [address]- 3908 Feb, [facility] [place] [facility] [address] [id number] [place] [address]- 1579 Feb, [facility] [place] [facility] [address] [id number] [place] [address]- 2290 Feb, [facility] [place] [facility] [address] [id number] [place] [address]- 4446 Feb, [facility] [place] [facility] [address] [id number], [place] [address]- 4669 Feb, [facility] [place] [facility] [address] [id number] [place] 90[address] Feb, [facility] [place] [facility] [address] [id number] [place] [address] Jan, [facility] [place] [facility] [address] [id number] [place] 7948 Jan, [facility] [place] [facility] [address] [id number] [place] [address]- 6214 Jan, [facility] [place] [facility] [address] [id number] [place] [address]- 2212 Jan, [facility] [place] [facility] [address] [id number] [place] [address]- 1279 Dec, [facility] [place] [facility] [address] [id number] [place] [address]- 3402 Dec, [facility] [place] [facility] [address] [id number] [place] [address]- 2803 Dec, [facility] [place] [facility] [address] [id number] [place] [address]- 3622 Dec, [facility] [place] [facility] [address] [id number] [place] [address]- 6572 Dec, [facility] [place] [facility] [address] [id number] [place] [address]- 3853 Dec, [facility] [place] [facility] [address] [id number] [place] [address]- 1182 24 Nov, 2013 [facility] [place] [facility] [address] [id number] [place] [address]- 2470 23 Nov, 2013 [facility] [place] [facility] [address] [id number] [place] [address]- 4532 23 Nov, 2013 [facility] [place] [facility] [address] [id number] [place] [address]- 2541 17 Nov, 2013 [facility] [place] [facility] [address] [id number] [place] [address]- 5172 17 Nov, 2013 [facility] [place] [facility] [address] [id number] [place] [address]- 0157 05 Nov, 2013 [facility] [place] [facility] [address] [id number] [place] [address]- 9972 05 Nov, 2013 [facility] [place] [facility] [address] [id number] [place] [address]- 7945 Oct, [facility] [place] [facility] [address] [id number] [place] [address]- 8359 Oct, [facility] [place] [facility] [address] [id number] [place] [address]- 7353 Oct, [facility] [place] [facility] [address] [id number] [place] [address]- 7942 Oct, [facility] [place] [facility] [address] [id number] [place] [address]- 5570 Oct, [facility] [place] [facility] [address] [id number] [place] [address]- 0470 Oct, [facility] [place] [facility] [address] [id number] [place] [address]- 1438 Oct, [facility] [place] [facility] [address] [id number] [place] [address]- 6060 Oct, [facility] [place] [facility] [address] [id number] [place] [address]- 3058 Oct, [facility] [place] [facility] [address] [id number] [place] [address]- 0489 Sep, [facility] [place] [facility] [address] [id number] [place] [address]- 9947 Sep, [facility] [place] [facility] [address] [id number] [place] [address]- 7609 Sep, [facility] [place] [facility] [address] [id number] [place] [address]- 3565 Sep, [facility] [place] [facility] [address] [id number] [place] [address]- 0619 Sep, [facility] [place] [facility] [address] [id number] [place] [address]- 3926 Sep, [facility] [place] [facility] [address] [id number] [place] [address]- 0490 Sep, [facility] [place] [facility] [address] [id number] [place] [address]- 0836 Sep, [facility] [place] [facility] [address] [id number] [place] [address]- 0675 Sep, [facility] [place] [facility] [address] [id number] [place] [address]- 4770 Aug, [facility] [place] [facility] [address] [id number] [place] [address]- 0961 Aug, [facility] [place] [facility] [address] [id number] [place] [address]- 5182 Jun, [facility] [place] [facility] [address] [id number] [place] [address]- 5724 Jun, [facility] [place] [facility] [address] [id number] [place] [address]- 2379 May, [facility] [place] [facility] [address] [facility] [id number] [place] [address]- 9659 May, [facility] [place] [facility] [address] [id number] [place] [address]- 0557 Apr, [facility] [place] [facility] [address] [id number] [place] [address]- 1914 Apr, [facility] [place] [facility] [address] [facility] [id number] [place] [address]- 1370 Apr, [facility] [place] [facility] [address] [facility] [id number] [place] [address]- 8357 Apr, [facility] [place] [facility] [address] [id number] [place] [address]- 2742 Feb, [facility] [place] [facility] [address] [id number] [place] [address]- 6854 Feb, [facility] [place] [facility] [address] [id number] [place] 7089 Jan, [facility] [place] [facility] [address] [id number] [place] [address]- 5128 Jan, [facility] [place] [facility] [address] [id number] [place] [address]- 0189 Nov, [facility] [place] [facility] [address] [id number] [place] [address]- 4630 Sep, [facility] [place] [facility] [address] [id number] [place] [address]- 6771 Sep, [facility] [place] [facility] [address] [id number] [place] [address]- 9487 Aug, [facility] [place] [facility] [address] [id number] [place] [address]- 1293 Aug, [facility] [place] [facility] [address] [id number] [place] [address]- 4530 Aug, [facility] [place] [facility] [address] [id number] [place] [address]- 8402 July, [facility] [place] [facility] [address] [id number] [place] [address]- 3467 July, [facility] [place] [facility] [address] [id number] [place] [address]- 0538 July, [facility] [place] [facility] [address] [id number] [place] [address]- 8167 May, [facility] [place] [facility] [address] [id number] [place] [address]- 3909 May, [facility] [place] [facility] [address] [id number] [place] [address]- 2985 Jan, [facility] [place] [facility] [address] [id number] [place] [address]- 8171 Jan, [facility] [place] [facility] [address] [id number] [place] [address]- 8023 Jan, [facility] [place] [facility] [address] [id number] [place] [address]- 7016 Jan, [facility] [place] [facility] [address] [id number], [place] [address]- 1396 Jan, [facility] [id number] 3846 Jan, [facility] [address], [place] [address]- 9287 Jan, [facility] [address], [place] [address]- 7942 Jan, [facility] [address], [place] [address]- 9439 Dec, [facility] [address], [place] [address]- 9150 Dec, [facility] [address], [place] [address]- 9795 Aug, [facility] [address], [place] [address]- 1907 July, [facility] [address], [place] [address]- 9499 Jun, [facility] [address] 3464 May, [facility] [address], [place] [address]- 3558 May, [facility] [id number], [place] [address]- 5927 May, [facility] [address] [address] [address]46 Jun, IMMUNIZATIONS No Known Immunizations SOCIAL HISTORY Never Assessed REASON FOR VISIT Controlled Refill REquest PLAN OF CARE VITAL SIGNS MEDICATIONS Medication Instructions Dosage Frequency Start Date End Date Duration Status Percocet 5-325 MG Orally 2 times a day as needed 1 tablet as needed Aug, 28 days Active RESULTS No Results PROCEDURES [...]
--- OUTSIDE RECORDS SUMMARY | 2017-10-14 00:24 | XMS REPORT | Continuity of Care Document ---
Author Author Formerly [facility], 1928–1983 [facility] Address Unknown Phone Unavailable Allergies Active Description Code Type Severity Reaction Onset Reported/Identified Relationship to Patient Clinical Status Yes Actifed Drug Allergy N/A N/A 07/05/2008 Yes hydrocodone Drug Allergy N/A N/A 07/05/2008 Yes Actifed Drug Allergy 07/05/2008 Yes hydrocodone Drug Allergy 07/05/2008 Yes morphine Drug Allergy N/A N/A 06/04/2011 Yes morphine Drug Allergy 06/04/2011 Yes Oxycodone Drug Allergy N/A N/A 05/27/2012 Yes Oxycodone Drug Allergy 05/27/2012 Yes No Allergy Information Available [id number] Drug Allergy Unknown N/A 2013 Yes hydrocodone [id number] Drug Allergy Unknown N/A 11/22/2014 Yes morphine [id number] Drug Allergy Unknown N/A 11/22/2014 Yes pseudoephedrine [id number] Drug Allergy Unknown N/A 11/22/2014 Yes triprolidine [id number] Drug Allergy Unknown N/A 11/22/2014 Yes ciprofloxacin [id number] Drug Allergy Moderate LEG CRAMPS 03/22/2016 Medications There is no data. Problems Date Dx Coded Attending Type Code Diagnosis Diagnosed By 07/05/2008 SOPHIE WADE DO 461.8 ACUTE PANSINUSITIS 07/05/2008 SOPHIE WADE DO 461.8 ACUTE PANSINUSITIS 07/05/2008 461.8 ACUTE PANSINUSITIS 07/05/2008 461.8 ACUTE PANSINUSITIS 07/05/2008 461.8 ACUTE PANSINUSITIS 07/05/2008 SOPHIE WADE DO 461.8 ACUTE PANSINUSITIS 07/05/2008 DONG CUMMINS APRN 461.8 ACUTE PANSINUSITIS 07/05/2008 DONG CUMMINS APRN 461.8 ACUTE PANSINUSITIS 07/05/2008 ASHER PLASTICS SEASONER OPERATOR, DONAVON R 461.8 ACUTE PANSINUSITIS 07/05/2008 SHANTE AGUIAR, ANMOL Shi 461.8 ACUTE PANSINUSITIS 07/05/2008 LEILANI HOLLINGSWORTH MD 461.8 ACUTE PANSINUSITIS 07/05/2008 WADE SOPHIE THOMPSON K 461.8 ACUTE PANSINUSITIS 07/05/2008 ASHER PLASTICS SEASONER OPERATOR, DONVAON R 461.8 ACUTE PANSINUSITIS 07/05/2008 SOPHIE WADE DO K 461.8 ACUTE PANSINUSITIS 07/05/2008 ASHER PLASTICS SEASONER OPERATOR, DONAVON R 461.8 ACUTE PANSINUSITIS 07/05/2008 ASHER PLASTICS SEASONER OPERATOR, DONAVON R 461.8 ACUTE PANSINUSITIS 07/05/2008 UDAY AGUIAR, DANA A 461.8 ACUTE PANSINUSITIS 07/05/2008 SOPHIE WADE DO K 461.8 ACUTE PANSINUSITIS 07/05/2008 ASHER PLASTICS SEASONER OPERATOR, DONAVON R 461.8 ACUTE PANSINUSITIS 07/05/2008 ASHER PLASTICS SEASONER OPERATOR, DONAVON R 461.8 ACUTE PANSINUSITIS 07/05/2008 ASHER PLASTICS SEASONER OPERATOR, DONAVON R 461.8 ACUTE PANSINUSITIS 06/04/2011 SOPHIE WADE DO 719.46 joint pain, localized in the knee 06/04/2011 SOPHIE WADE DO K 726.73 PLANTAR CALCANEAL SPUR RIGHT 06/04/2011 SOPHIE WADE DO K 719.46 joint pain, localized in the knee 06/04/2011 SOPHIE WADE DO K 726.73 PLANTAR CALCANEAL SPUR RIGHT 06/04/2011 719.46 joint pain, localized in the knee 06/04/2011 726.73 PLANTAR CALCANEAL SPUR RIGHT 06/04/2011 719.46 joint pain, localized in the knee 06/04/2011 726.73 PLANTAR CALCANEAL SPUR RIGHT 06/04/2011 719.46 joint pain, localized in the knee 06/04/2011 726.73 PLANTAR CALCANEAL SPUR RIGHT 06/04/2011 SOPHIE WADE DO K 719.46 joint pain, localized in the knee 06/04/2011 SOPHIE WADE DO K 726.73 PLANTAR CALCANEAL SPUR RIGHT 06/04/2011 DONG CUMMINS APRN 719.46 joint pain, localized in the knee 06/04/2011 PLACIDO AGUIAR DONG R 726.73 PLANTAR CALCANEAL SPUR RIGHT 06/04/2011 SAMEERA CUMMINS APRNRICIA R 719.46 joint pain, localized in the knee 06/04/2011 SAMEERA CUMMINS APRNRICIA R 726.73 PLANTAR CALCANEAL SPUR RIGHT 06/04/2011 ASHER AGUIAR DONAVON R 719.46 joint pain, localized in the knee 06/04/2011 ASHER AGUIAR DONAVON R 726.73 PLANTAR CALCANEAL SPUR RIGHT 06/04/2011 ANMOL FREY APRN S 719.46 joint pain, localized in the knee 06/04/2011 ANMOL FREY APRN S 726.73 PLANTAR CALCANEAL SPUR RIGHT 06/04/2011 LEILANI HOLLINGSWORTH MD 719.46 joint pain, localized in the knee 06/04/2011 LEILANI HOLLINGSWORTH MD 726.73 PLANTAR CALCANEAL SPUR RIGHT 06/04/2011 SOPHIE WADE DO K 719.46 joint pain, localized in the knee 06/04/2011 LON WADE DOA K 726.73 PLANTAR CALCANEAL SPUR RIGHT 06/04/2011 ASHER AGUIAR DONAVON R 719.46 joint pain, localized in the knee 06/04/2011 ASHER AGUIAR DONAVON R 726.73 PLANTAR CALCANEAL SPUR RIGHT 06/04/2011 LON WADE DOA K 719.46 joint pain, localized in the knee 06/04/2011 SHERI THOMPSON SOPHIE K 726.73 PLANTAR CALCANEAL SPUR RIGHT 06/04/2011 ASHER AGUIAR DONAVON R 719.46 joint pain, localized in the knee 06/04/2011 ASHER AGUIAR DONAVON R 726.73 PLANTAR CALCANEAL SPUR RIGHT 06/04/2011 ASHER AGUIAR DONAVON R 719.46 joint pain, localized in the knee 06/04/2011 ASHER AGUIAR DONAVON R 726.73 PLANTAR CALCANEAL SPUR RIGHT 06/04/2011 SHERRY FRYE APRNIDI A 719.46 joint pain, localized in the knee 06/04/2011 UDAY AGUIAR DANA A 726.73 PLANTAR CALCANEAL SPUR RIGHT 06/04/2011 SOPHIE WADE DO K 719.46 joint pain, localized in the knee 06/04/2011 WADE DO, SOPHIE K 726.73 PLANTAR CALCANEAL SPUR RIGHT 06/04/2011 ASHER PLASTICS SEASONER OPERATOR, DONAVON R 719.46 joint pain, localized in the knee 06/04/2011 ASHER PLASTICS SEASONER OPERATOR, DONAVON R 726.73 PLANTAR CALCANEAL SPUR RIGHT 06/04/2011 ASHER PLASTICS SEASONER OPERATOR, DONAVON R 719.46 joint pain, localized in the knee 06/04/2011 ASHER PLASTICS SEASONER OPERATOR, DONAVON R 726.73 PLANTAR CALCANEAL SPUR RIGHT 06/04/2011 ASHER PLASTICS SEASONER OPERATOR, DONAVON R 719.46 joint pain, localized in the knee 06/04/2011 ASHER PLASTICS SEASONER OPERATOR, DONAVON R 726.73 PLANTAR CALCANEAL SPUR RIGHT 06/26/2011 WADE DO, SOPHIE K E888.1 ACCIDENTAL FALL RESULTING IN STRIKING AGAINST OTHER OBJECT 06/26/2011 WADE DO, SOPHIE K E888.1 ACCIDENTAL FALL RESULTING IN STRIKING AGAINST OTHER OBJECT 06/26/2011 E888.1 ACCIDENTAL FALL RESULTING IN STRIKING AGAINST OTHER OBJECT 06/26/2011 E888.1 ACCIDENTAL FALL RESULTING IN STRIKING AGAINST OTHER OBJECT 06/26/2011 E888.1 ACCIDENTAL FALL RESULTING IN STRIKING AGAINST OTHER OBJECT 06/26/2011 WADE DO, SOPHIE K E888.1 ACCIDENTAL FALL RESULTING IN STRIKING AGAINST OTHER OBJECT 06/26/2011 DONG CUMMINS APRN R E888.1 ACCIDENTAL FALL RESULTING IN STRIKING AGAINST OTHER OBJECT 06/26/2011 DONG CUMMINS APRN R E888.1 ACCIDENTAL FALL RESULTING IN STRIKING AGAINST OTHER OBJECT 06/26/2011 ASHER SANTACRUZN, DONAVON R E888.1 ACCIDENTAL FALL RESULTING IN STRIKING AGAINST OTHER OBJECT 06/26/2011 ANMOL FREY APRN E888.1 ACCIDENTAL FALL RESULTING IN STRIKING AGAINST OTHER OBJECT 06/26/2011 LEILANI HOLLINGSWORTH MD E888.1 ACCIDENTAL FALL RESULTING IN STRIKING AGAINST OTHER OBJECT 06/26/2011 WADE DO, SOPHIE K E888.1 ACCIDENTAL FALL RESULTING IN STRIKING AGAINST OTHER OBJECT 06/26/2011 ASHER SANTACRUZN, DONAVON R E888.1 ACCIDENTAL FALL RESULTING IN STRIKING AGAINST OTHER OBJECT 06/26/2011 WADE DO, SOPHIE K E888.1 ACCIDENTAL FALL RESULTING IN STRIKING AGAINST OTHER OBJECT 06/26/2011 ASHER PLASTICS SEASONER OPERATOR, DONAVON R E888.1 ACCIDENTAL FALL RESULTING IN STRIKING AGAINST OTHER OBJECT 06/26/2011 ASHER PLASTICS SEASONER OPERATOR, DONAVON R E888.1 ACCIDENTAL FALL RESULTING IN STRIKING AGAINST OTHER OBJECT 06/26/2011 UDAY PLASTICS SEASONER OPERATOR, DANA A E888.1 ACCIDENTAL FALL RESULTING IN STRIKING AGAINST OTHER OBJECT 06/26/2011 WADE DO, SOPHIE K E888.1 ACCIDENTAL FALL RESULTING IN STRIKING AGAINST OTHER OBJECT 06/26/2011 ASHER PLASTICS SEASONER OPERATOR, DONAVON R E888.1 ACCIDENTAL FALL RESULTING IN STRIKING AGAINST OTHER OBJECT 06/26/2011 ASHER PLASTICS SEASONER OPERATOR, DONAVON R E888.1 ACCIDENTAL FALL RESULTING IN STRIKING AGAINST OTHER OBJECT 06/26/2011 ASHER PLASTICS SEASONER OPERATOR, DONAVON R E888.1 ACCIDENTAL FALL RESULTING IN STRIKING AGAINST OTHER OBJECT 08/22/2011 WADE DO, SOPHIE K 691.8 ECZEMA 08/22/2011 WADE DO, SOPHIE K 719.41 PAIN IN JOINT INVOLVING SHOULDER REGION 08/22/2011 WADE DO, SOPHIE K 719.42 PAIN IN JOINT INVOLVING UPPER ARM 08/22/2011 WADE DO, SOPHIE K 691.8 ECZEMA 08/22/2011 WADE DO, SOPHIE K 719.41 PAIN IN JOINT INVOLVING SHOULDER REGION 08/22/2011 WADE DO, SOPHIE K 719.42 PAIN IN JOINT INVOLVING UPPER ARM 08/22/2011 691.8 ECZEMA 08/22/2011 719.41 PAIN IN JOINT INVOLVING SHOULDER REGION 08/22/2011 719.42 PAIN IN JOINT INVOLVING UPPER ARM 08/22/2011 691.8 ECZEMA 08/22/2011 719.41 PAIN IN JOINT INVOLVING SHOULDER REGION 08/22/2011 719.42 PAIN IN JOINT INVOLVING UPPER ARM 08/22/2011 691.8 ECZEMA 08/22/2011 719.41 PAIN IN JOINT INVOLVING SHOULDER REGION 08/22/2011 719.42 PAIN IN JOINT INVOLVING UPPER ARM 08/22/2011 WADE DO, SOPHIE K 691.8 ECZEMA 08/22/2011 WADE DO, SOPHIE K 719.41 PAIN IN JOINT INVOLVING SHOULDER REGION 08/22/2011 WADE DO, SOPHIE K 719.42 PAIN IN JOINT INVOLVING UPPER ARM 08/22/2011 DONG CUMMINS APRN R 691.8 ECZEMA 08/22/2011 DONG CUMMINS APRN R 719.41 PAIN IN JOINT INVOLVING SHOULDER REGION 08/22/2011 DONG CUMMINS APRN R 719.42 PAIN IN JOINT INVOLVING UPPER ARM 08/22/2011 DONG CUMMINS APRN R 691.8 ECZEMA 08/22/2011 SUNDAR CUMMINS APRNIA R 719.41 PAIN IN JOINT INVOLVING SHOULDER REGION 08/22/2011 DONG CUMMINS APRN R 719.42 PAIN IN JOINT INVOLVING UPPER ARM 08/22/2011 DONAVON STERLING APRN R 691.8 ECZEMA 08/22/2011 NEWTON STERLING APRNINA R 719.41 PAIN IN JOINT INVOLVING SHOULDER REGION 08/22/2011 NEWTON STERLING APRNINA R 719.42 PAIN IN JOINT INVOLVING UPPER ARM 08/22/2011 ANMOL FREY APRN S 691.8 ECZEMA 08/22/2011 ANMOL FREY APRN S 719.41 PAIN IN JOINT INVOLVING SHOULDER REGION 08/22/2011 ANMOL FREY APRN S 719.42 PAIN IN JOINT INVOLVING UPPER ARM 08/22/2011 LEILANI HOLLINGSWORTH MD 691.8 ECZEMA 08/22/2011 LEILANI HOLLINGSWORTH MD 719.41 PAIN IN JOINT INVOLVING SHOULDER REGION 08/22/2011 LEILANI HOLLINGSWORTH MD 719.42 PAIN IN JOINT INVOLVING UPPER ARM 08/22/2011 WADE DO, SOPHIE K 691.8 ECZEMA 08/22/2011 WADE DO SOPHIE K 719.41 PAIN IN JOINT INVOLVING SHOULDER REGION 08/22/2011 WADE DO SOPHIE K 719.42 PAIN IN JOINT INVOLVING UPPER ARM 08/22/2011 NEWTON STERLING APRNINA R 691.8 ECZEMA 08/22/2011 NEWTON STERLING APRNINA R 719.41 PAIN IN JOINT INVOLVING SHOULDER REGION 08/22/2011 NEWTON STERLING APRNINA R 719.42 PAIN IN JOINT INVOLVING UPPER ARM 08/22/2011 WADE DO, SOPHIE K 691.8 ECZEMA 08/22/2011 WADE DO, SOPHIE K 719.41 PAIN IN JOINT INVOLVING SHOULDER REGION 08/22/2011 WADE DO, SOPHIE K 719.42 PAIN IN JOINT INVOLVING UPPER ARM 08/22/2011 NEWTON STERLING APRNINA R 691.8 ECZEMA 08/22/2011 DONAVON STERLING APRN R 719.41 PAIN IN JOINT INVOLVING SHOULDER REGION 08/22/2011 DONAVON STERLING APRN R 719.42 PAIN IN JOINT INVOLVING UPPER ARM 08/22/2011 DONAVON STERLING APRN R 691.8 ECZEMA 08/22/2011 NEWTON STERLING APRNINA R 719.41 PAIN IN JOINT INVOLVING SHOULDER REGION 08/22/2011 NEWTON STERLING APRNINA R 719.42 PAIN IN JOINT INVOLVING UPPER ARM 08/22/2011 DANA FRYE APRN A 691.8 ECZEMA 08/22/2011 DANA FRYE APRN A 719.41 PAIN IN JOINT INVOLVING SHOULDER REGION 08/22/2011 DANA FRYE APRN A 719.42 PAIN IN JOINT INVOLVING UPPER ARM 08/22/2011 SOPHIE WADE DO K 691.8 ECZEMA 08/22/2011 SOPHIE WADE DO K 719.41 PAIN IN JOINT INVOLVING SHOULDER REGION 08/22/2011 SOPHIE WADE DO K 719.42 PAIN IN JOINT INVOLVING UPPER ARM 08/22/2011 DONAVON STERLING APRN R 691.8 ECZEMA 08/22/2011 DONAVON STERLING APRN R 719.41 PAIN IN JOINT INVOLVING SHOULDER REGION 08/22/2011 DONAVON STERLING APRN R 719.42 PAIN IN JOINT INVOLVING UPPER ARM 08/22/2011 NEWTON STERLING APRNINA R 691.8 ECZEMA 08/22/2011 NEWTON STERLING APRNINA R 719.41 PAIN IN JOINT INVOLVING SHOULDER REGION 08/22/2011 NEWTON STERLING APRNINA R 719.42 PAIN IN JOINT INVOLVING UPPER ARM 08/22/2011 NEWTON STERLING APRNINA R 691.8 ECZEMA 08/22/2011 DONAVON STERLING APRN R 719.41 PAIN IN JOINT INVOLVING SHOULDER REGION 08/22/2011 DONAVON STERLING APRN R 719.42 PAIN IN JOINT INVOLVING UPPER ARM 09/18/2011 SOPHIE WADE DO K 845.10 SPRAIN/STRAIN FOOT 09/18/2011 SOPHIE WADE DO K 845.10 SPRAIN/STRAIN FOOT 09/18/2011 845.10 SPRAIN/ STRAIN FOOT 09/18/2011 845.10 SPRAIN/ STRAIN FOOT 09/18/2011 845.10 SPRAIN/ STRAIN FOOT 09/18/2011 SOPHIE WADE DO K 845.10 SPRAIN/STRAIN FOOT 09/18/2011 DONG CUMMINS APRN R 845.10 SPRAIN/STRAIN FOOT 09/18/2011 DONG CUMMINS APRN R 845.10 SPRAIN/STRAIN FOOT 09/18/2011 ASHER AGUIAR, DONAVON R 845.10 SPRAIN/STRAIN FOOT 09/18/2011 ANMOL FREY APRN S 845.10 SPRAIN/STRAIN FOOT 09/18/2011 LEILANI HOLLINGSWORTH MD 845.10 SPRAIN/STRAIN FOOT 09/18/2011 WADE DO, SOPHIE K 845.10 SPRAIN/STRAIN FOOT 09/18/2011 ASHER AGUIAR, DONAVON R 845.10 SPRAIN/STRAIN FOOT 09/18/2011 WADE DO, SOPHIE K 845.10 SPRAIN/STRAIN FOOT 09/18/2011 ASHER AGUIAR, DONAVON R 845.10 SPRAIN/STRAIN FOOT 09/18/2011 ASHER AGUIAR, DONAVON R 845.10 SPRAIN/STRAIN FOOT 09/18/2011 DANA FRYE APRN A 845.10 SPRAIN/STRAIN FOOT 09/18/2011 WADE DO, SOPHIE K 845.10 SPRAIN/STRAIN FOOT 09/18/2011 NEWTON STERLING APRNINA R 845.10 SPRAIN/STRAIN FOOT 09/18/2011 ASHER AGUIAR DONAVON R 845.10 SPRAIN/STRAIN FOOT 09/18/2011 ASHER AGUIAR DONAVON R 845.10 SPRAIN/STRAIN FOOT 01/14/2012 WADE DO SOPHIE K 599.0 URINARY TRACT INFECTION 01/14/2012 LON WADE DOA K 599.0 URINARY TRACT INFECTION 01/14/2012 599.0 URINARY TRACT INFECTION 01/14/2012 599.0 URINARY TRACT INFECTION 01/14/2012 599.0 URINARY TRACT INFECTION 01/14/2012 LON WADE DOA K 599.0 URINARY TRACT INFECTION 01/14/2012 SAMEERA CUMMINS APRNRICIA R 599.0 URINARY TRACT INFECTION 01/14/2012 SAMEERA CUMMINS APRNRICIA R 599.0 URINARY TRACT INFECTION 01/14/2012 NEWTON STERLING APRNINA R 599.0 URINARY TRACT INFECTION 01/14/2012 ANMOL FREY APRN S 599.0 URINARY TRACT INFECTION 01/14/2012 LEILANI HOLLINGSWORTH MD 599.0 URINARY TRACT INFECTION 01/14/2012 LON WADE DOA K 599.0 URINARY TRACT INFECTION 01/14/2012 DONAVON STERLING APRN R 599.0 URINARY TRACT INFECTION 01/14/2012 WADE DO, SOPHIE K 599.0 URINARY TRACT INFECTION 01/14/2012 ASHER PLASTICS SEASONER OPERATOR, DONAVON R 599.0 URINARY TRACT INFECTION 01/14/2012 ASHER PLASTICS SEASONER OPERATOR, DONAVON R 599.0 URINARY TRACT INFECTION 01/14/2012 UDAY PLASTICS SEASONER OPERATOR, DANA A 599.0 URINARY TRACT INFECTION 01/14/2012 WADE DO, SOPHIE K 599.0 URINARY TRACT INFECTION 01/14/2012 ASHER PLASTICS SEASONER OPERATOR, DONAVON R 599.0 URINARY TRACT INFECTION 01/14/2012 ASHER PLASTICS SEASONER OPERATOR, DONAVON R 599.0 URINARY TRACT INFECTION 01/14/2012 ASHER PLASTICS SEASONER OPERATOR, DONAVON R 599.0 URINARY TRACT INFECTION 02/06/2012 WADE DO, SOPHIE K 466.0 BRONCHITIS, ACUTE 02/06/2012 WADE DO, SOPHIE K 784.91 POSTNASAL DRIP 02/06/2012 WADE DO, SOPHIE K 786.2 COUGH 02/06/2012 WADE DO, SOPHIE K 466.0 BRONCHITIS, ACUTE 02/06/2012 WADE DO, SOPHIE K 784.91 POSTNASAL DRIP 02/06/2012 WADE DO, SOPHIE K 786.2 COUGH 02/06/2012 466.0 BRONCHITIS, ACUTE 02/06/2012 784.91 POSTNASAL DRIP 02/06/2012 786.2 COUGH 02/06/2012 466.0 BRONCHITIS, ACUTE 02/06/2012 784.91 POSTNASAL DRIP 02/06/2012 786.2 COUGH 02/06/2012 466.0 BRONCHITIS, ACUTE 02/06/2012 784.91 POSTNASAL DRIP 02/06/2012 786.2 COUGH 02/06/2012 WADE DO, SOPHIE K 466.0 BRONCHITIS, ACUTE 02/06/2012 WADE DO, SOPHIE K 784.91 POSTNASAL DRIP 02/06/2012 WADE DO, SOPHIE K 786.2 COUGH 02/06/2012 PLACIDO PLASTICS SEASONER OPERATOR, DONG R 466.0 BRONCHITIS, ACUTE 02/06/2012 PLACIDO PLASTICS SEASONER OPERATOR, DONG R 784.91 POSTNASAL DRIP 02/06/2012 PLACIDO PLASTICS SEASONER OPERATOR, DONG R 786.2 COUGH 02/06/2012 PLACIDO PLASTICS SEASONER OPERATOR, DONG R 466.0 BRONCHITIS, ACUTE 02/06/2012 PLACIDO PLASTICS SEASONER OPERATOR, DONG R 784.91 POSTNASAL DRIP 02/06/2012 PLACIDO PLASTICS SEASONER OPERATOR, DONG R 786.2 COUGH 02/06/2012 ASHER PLASTICS SEASONER OPERATOR, DONAVON R 466.0 BRONCHITIS, ACUTE 02/06/2012 ASHER PLASTICS SEASONER OPERATOR, DONAVON R 784.91 POSTNASAL DRIP 02/06/2012 ASHER PLASTICS SEASONER OPERATOR, DONAVON R 786.2 COUGH 02/06/2012 SHANTE PLASTICS SEASONER OPERATOR, ANMOL S 466.0 BRONCHITIS, ACUTE 02/06/2012 SHANTE PLASTICS SEASONER OPERATOR, ANMOL S 784.91 POSTNASAL DRIP 02/06/2012 SHANTE PLASTICS SEASONER OPERATOR, ANMOL S 786.2 COUGH 02/06/2012 LEILANI HOLLINGSWORTH MD 466.0 BRONCHITIS, ACUTE 02/06/2012 LEILANI HOLLINGSWORTH MD 784.91 POSTNASAL DRIP 02/06/2012 LEILANI HOLLINGSWORTH MD 786.2 COUGH 02/06/2012 WADE DO, SOPHIE K 466.0 BRONCHITIS, ACUTE 02/06/2012 WADE DO, SOPHIE K 784.91 POSTNASAL DRIP 02/06/2012 WADE DO, SOPHIE K 786.2 COUGH 02/06/2012 ASHER PLASTICS SEASONER OPERATOR, DONAVON R 466.0 BRONCHITIS, ACUTE 02/06/2012 ASHER PLASTICS SEASONER OPERATOR, DONAVON R 784.91 POSTNASAL DRIP 02/06/2012 ASHER PLASTICS SEASONER OPERATOR, DONAVON R 786.2 COUGH 02/06/2012 WADE DO, SOPHIE K 466.0 BRONCHITIS, ACUTE 02/06/2012 WADE DO, SOPHIE K 784.91 POSTNASAL DRIP 02/06/2012 WADE DO, SOPHIE K 786.2 COUGH 02/06/2012 ASHER PLASTICS SEASONER OPERATOR, DONAVON R 466.0 BRONCHITIS, ACUTE 02/06/2012 ASHER PLASTICS SEASONER OPERATOR, DONAVON R 784.91 POSTNASAL DRIP 02/06/2012 ASHER PLASTICS SEASONER OPERATOR, ODNAVON R 786.2 COUGH 02/06/2012 ASHER PLASTICS SEASONER OPERATOR, DONAVON R 466.0 BRONCHITIS, ACUTE 02/06/2012 ASHER PLASTICS SEASONER OPERATOR, DONAVON R 784.91 POSTNASAL DRIP 02/06/2012 ASHER PLASTICS SEASONER OPERATOR, DONAVON R 786.2 COUGH 02/06/2012 UDAY APRN, DANA A 466.0 BRONCHITIS, ACUTE 02/06/2012 UDAY PLASTICS SEASONER OPERATOR, DANA A 784.91 POSTNASAL DRIP 02/06/2012 UDAY AGUIAR, DANA A 786.2 COUGH 02/06/2012 WADE DO, SOPHIE K 466.0 BRONCHITIS, ACUTE 02/06/2012 WADE DO, SOPHIE K 784.91 POSTNASAL DRIP 02/06/2012 WADE DO, SOPHIE K 786.2 COUGH 02/06/2012 ASHER PLASTICS SEASONER OPERATOR, DONAVON R 466.0 BRONCHITIS, ACUTE 02/06/2012 ASHER PLASTICS SEASONER OPERATOR, DONAVON R 784.91 POSTNASAL DRIP 02/06/2012 ASHER PLASTICS SEASONER OPERATOR, DONAVON R 786.2 COUGH 02/06/2012 ASHER PLASTICS SEASONER OPERATOR, DONAVON R 466.0 BRONCHITIS, ACUTE 02/06/2012 ASHER PLASTICS SEASONER OPERATOR, DONAVON R 784.91 POSTNASAL DRIP 02/06/2012 ASHER PLASTICS SEASONER OPERATOR, DONAVON R 786.2 COUGH 02/06/2012 ASHER PLASTICS SEASONER OPERATOR, DONAVON R 466.0 BRONCHITIS, ACUTE 02/06/2012 ASHER PLASTICS SEASONER OPERATOR, DONAVON R 784.91 POSTNASAL DRIP 02/06/2012 ASHER PLASTICS SEASONER OPERATOR, DONAVON R 786.2 COUGH 02/13/2012 SOPHIE WADE DO K 702.11 INFLAMED SEBORRHEIC KERATOSIS 02/13/2012 LON WADE DOA K 702.11 INFLAMED SEBORRHEIC KERATOSIS 02/13/2012 702.11 INFLAMED SEBORRHEIC KERATOSIS 02/13/2012 702.11 INFLAMED SEBORRHEIC KERATOSIS 02/13/2012 702.11 INFLAMED SEBORRHEIC KERATOSIS 02/13/2012 LON WADE DOA K 702.11 INFLAMED SEBORRHEIC KERATOSIS 02/13/2012 DONG CUMMINS APRN R 702.11 INFLAMED SEBORRHEIC KERATOSIS 02/13/2012 DONG CUMMINS APRN R 702.11 INFLAMED SEBORRHEIC KERATOSIS 02/13/2012 ASHER AGUIAR, DONAVON R 702.11 INFLAMED SEBORRHEIC KERATOSIS 02/13/2012 ANMOL FREY APRN 702.11 INFLAMED SEBORRHEIC KERATOSIS 02/13/2012 LEILANI HOLLINGSWORTH MD 702.11 INFLAMED SEBORRHEIC KERATOSIS 02/13/2012 LON WADE DOA K 702.11 INFLAMED SEBORRHEIC KERATOSIS 02/13/2012 ASHER AGUIAR, DONAVON R 702.11 INFLAMED SEBORRHEIC KERATOSIS 02/13/2012 SHERI THOMPSON, SOPHIE K 702.11 INFLAMED SEBORRHEIC KERATOSIS 02/13/2012 ASHER PLASTICS SEASONER OPERATOR, DONAVON R 702.11 INFLAMED SEBORRHEIC KERATOSIS 02/13/2012 ASHER PLASTICS SEASONER OPERATOR, DONAVON R 702.11 INFLAMED SEBORRHEIC KERATOSIS 02/13/2012 UDAYHANNAH AGUIAR, DANA A 702.11 INFLAMED SEBORRHEIC KERATOSIS 02/13/2012 SHERI THOMPSON, SOPHIE K 702.11 INFLAMED SEBORRHEIC KERATOSIS 02/13/2012 ASHER PLASTICS SEASONER OPERATOR, DONAVON R 702.11 INFLAMED SEBORRHEIC KERATOSIS 02/13/2012 ASHER PLASTICS SEASONER OPERATOR, DONAVON R 702.11 INFLAMED SEBORRHEIC KERATOSIS 02/13/2012 ASHER PLASTICS SEASONER OPERATOR, DONAVON R 702.11 INFLAMED SEBORRHEIC KERATOSIS 05/27/2012 SHERI THOMPSON, SOPHIE K 530.81 ESOPHAGEAL REFLUX 05/27/2012 SHERI THOMPSON, SOPHIE K 724.3 SCIATICA 05/27/2012 530.81 ESOPHAGEAL REFLUX 05/27/2012 724.3 SCIATICA 05/27/2012 530.81 ESOPHAGEAL REFLUX 05/27/2012 724.3 SCIATICA 05/27/2012 530.81 ESOPHAGEAL REFLUX 05/27/2012 724.3 SCIATICA 05/27/2012 SHERI THOMPSON SOPHIE K 530.81 ESOPHAGEAL REFLUX 05/27/2012 SHERI THOMPSON, SOPHIE K 724.3 SCIATICA 05/27/2012 PLACIDO AGUIAR, DONG R 530.81 ESOPHAGEAL REFLUX 05/27/2012 PLACIDO AGUIAR DONG R 724.3 SCIATICA 05/27/2012 PLACIDO AGUIAR DONG R 530.81 ESOPHAGEAL REFLUX 05/27/2012 PLACIDO AGUIAR, DONG R 724.3 SCIATICA 05/27/2012 ASHER AGUIAR, DONAVON R 530.81 ESOPHAGEAL REFLUX 05/27/2012 ASHER AGUIAR DONAVON R 724.3 SCIATICA 05/27/2012 CLIFFORD FREY APRNNDA S 530.81 ESOPHAGEAL REFLUX 05/27/2012 SHANTE AGUIAR ANMOL S 724.3 SCIATICA 05/27/2012 LEILANI HOLLINGSWORTH MD 530.81 ESOPHAGEAL REFLUX 05/27/2012 LEILANI HOLLINGSWORTH MD 724.3 SCIATICA 05/27/2012 WADE DO, SOPHIE K 530.81 ESOPHAGEAL REFLUX 05/27/2012 WADE DO, SOPHIE K 724.3 SCIATICA 05/27/2012 ASHER PLASTICS SEASONER OPERATOR, DONAVON R 530.81 ESOPHAGEAL REFLUX 05/27/2012 ASHER PLASTICS SEASONER OPERATOR, DONAVON R 724.3 SCIATICA 05/27/2012 WADE DO, SOPHIE K 530.81 ESOPHAGEAL REFLUX 05/27/2012 WADE DO, SOPHIE K 724.3 SCIATICA 05/27/2012 ASHER PLASTICS SEASONER OPERATOR, DONAVON R 530.81 ESOPHAGEAL REFLUX 05/27/2012 ASHER PLASTICS SEASONER OPERATOR, DONAVON R 724.3 SCIATICA 05/27/2012 ASHER PLASTICS SEASONER OPERATOR, DONAVON R 530.81 ESOPHAGEAL REFLUX 05/27/2012 ASHER PLASTICS SEASONER OPERATOR, DONAVON R 724.3 SCIATICA 05/27/2012 UDAY PLASTICS SEASONER OPERATOR, DANA A 530.81 ESOPHAGEAL REFLUX 05/27/2012 UDAY PLASTICS SEASONER OPERATOR, DANA A 724.3 SCIATICA 05/27/2012 WADE DO, SOPHIE K 530.81 ESOPHAGEAL REFLUX 05/27/2012 WADE DO, SOPHIE K 724.3 SCIATICA 05/27/2012 ASHER PLASTICS SEASONER OPERATOR, DONAVON R 530.81 ESOPHAGEAL REFLUX 05/27/2012 ASHER PLASTICS SEASONER OPERATOR, DONAVON R 724.3 SCIATICA 05/27/2012 ASHER PLASTICS SEASONER OPERATOR, DONAVON R 530.81 ESOPHAGEAL REFLUX 05/27/2012 ASHER PLASTICS SEASONER OPERATOR, DONAVON R 724.3 SCIATICA 05/27/2012 ASHER PLASTICS SEASONER OPERATOR, DONAVON R 530.81 ESOPHAGEAL REFLUX 05/27/2012 ASHER PLASTICS SEASONER OPERATOR, DONAVON R 724.3 SCIATICA 06/16/2012 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 06/16/2012 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 06/16/2012 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 06/16/2012 WADE DO, SOPHIE K 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 06/16/2012 PLACIDO AGUIAR DONG 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 06/16/2012 PLACIDO AGUIAR DONG 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 06/16/2012 ASHER PLASTICS SEASONER OPERATOR, DONAVON 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 06/16/2012 ANMOL FREY APRN 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 06/16/2012 EDEL MULLINS, LEILANI 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 06/16/2012 SOPHIE WADE DO K 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 06/16/2012 ASHER PLASTICS SEASONER OPERATOR, DONAVON 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 06/16/2012 LON WADE DOA K 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 06/16/2012 ASHER PLASTICS SEASONER OPERATOR, DONAVON 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 06/16/2012 ASHER PLASTICS SEASONER OPERATOR, DONAVON 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 06/16/2012 DANA FRYE APRN A 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 06/16/2012 SOPHIE WADE DO K 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 06/16/2012 ASHER PLASTICS SEASONER OPERATOR, DONAVON 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 06/16/2012 ASHER PLASTICS SEASONER OPERATOR, DONAVON 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 06/16/2012 ASHER PLASTICS SEASONER OPERATOR, DONAVON 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 07/23/2012 726.5 ENTHESOPATHY OF HIP REGION 07/23/2012 726.5 ENTHESOPATHY OF HIP REGION 07/23/2012 SOPHIE WADE DO K 726.5 ENTHESOPATHY OF HIP REGION 07/23/2012 SAMEERA CUMMINS APRNRICIA R 726.5 ENTHESOPATHY OF HIP REGION 07/23/2012 SAMEERA CUMMINS APRNRICIA R 726.5 ENTHESOPATHY OF HIP REGION 07/23/2012 ASHER AGUIAR, DONAVON R 726.5 ENTHESOPATHY OF HIP REGION 07/23/2012 ANMOL FREY APRN 726.5 ENTHESOPATHY OF HIP REGION 07/23/2012 LEILANI HOLLINGSWORTH MD 726.5 ENTHESOPATHY OF HIP REGION 07/23/2012 SOPHIE WADE DO K 726.5 ENTHESOPATHY OF HIP REGION 07/23/2012 ASHER AGUIAR, DONAVON R 726.5 ENTHESOPATHY OF HIP REGION 07/23/2012 SOPHIE WADE DO K 726.5 ENTHESOPATHY OF HIP REGION 07/23/2012 ASHER AGUIAR, DONAVON R 726.5 ENTHESOPATHY OF HIP REGION 07/23/2012 ASHER AGUIAR, DONAVON R 726.5 ENTHESOPATHY OF HIP REGION 07/23/2012 DANA FRYE APRN A 726.5 ENTHESOPATHY OF HIP REGION 07/23/2012 SOPHIE WADE DO K 726.5 ENTHESOPATHY OF HIP REGION 07/23/2012 ASHER PLASTICS SEASONER OPERATOR, DONAVON R 726.5 ENTHESOPATHY OF HIP REGION 07/23/2012 ASHER PLASTICS SEASONER OPERATOR, DONAVON R 726.5 ENTHESOPATHY OF HIP REGION 07/23/2012 ASHER PLASTICS SEASONER OPERATOR, DONAVON R 726.5 ENTHESOPATHY OF HIP REGION 08/29/2012 558.9 GASTROENTERITIS NONINFECTIOUS 08/29/2012 787.91 DIARRHEA 08/29/2012 WADE DO SOPHIE K 558.9 GASTROENTERITIS NONINFECTIOUS 08/29/2012 WADE DO, SOPHIE K 787.91 DIARRHEA 08/29/2012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 WITHOUT BL 04/04/2016 RUIZ DO, RICCARDO D Ot K31.7 POLYP OF STOMACH AND DUODENUM 04/04/2016 RUIZ DO, RICCARDO D Ot K21.9 GASTRO-ESOPHAGEAL REFLUX DISEASE WITHOUT 04/04/2016 RUIZ DO, RICCARDO D Ot K29.50 UNSPECIFIED CHRONIC GASTRITIS WITHOUT BL 04/04/2016 RUIZ DO, RICCARDO D Ot K31.7 POLYP OF STOMACH AND DUODENUM 04/06/2016 JANES PECK APRN Ot Z12.31 ENCNTR SCREEN MAMMOGRAM FOR MALIGNANT NE 04/10/2016 RAHEEM MARINO Ot G43.909 MIGRAINE, UNSP, NOT INTRACTABLE, WITHOUT 04/10/2016 RAHEEM MARINO TROUSSEAU CONSULTANT Ot R22.0 LOCALIZED SWELLING, MASS AND LUMP, HEAD 04/10/2016 RAHEEM MARINO Ot Z01.812 ENCOUNTER FOR PREPROCEDURAL LABORATORY E 05/21/2017 JANES PECK APRN Ot Z12.31 ENCNTR SCREEN MAMMOGRAM FOR MALIGNANT NE 05/21/2017 DONAVON STERLING PLASTICS SEASONER OPERATOR Ot 562.10 DIVERTICULOSIS COLON (W/O MENT OF HEMORR 05/21/2017 RICCARDO RUIZ DO Ot V72.84 EXAM PRE-OPERATIVE NOS 05/21/2017 DONAVON STERLING PLASTICS SEASONER OPERATOR Ot 789.00 ABDOMINAL PAIN, UNSPECIFIED SITE 05/21/2017 DANA FRYE PLASTICS SEASONER OPERATOR Ot 733.90 BONE CARTILAGE DIS NOS 05/21/2017 DANA FRYE APRN Ot V76.12 OTH SCREEN MAMMO-MALIGN NEOPLASM OF SONIA 05/21/2017 DANA FRYE APRN Ot M85.80 OTH DISRD OF BONE DENSITY AND STRUCTURE, 05/21/2017 DANA FRYE PLASTICS SEASONER OPERATOR Ot Z12.31 ENCNTR SCREEN MAMMOGRAM FOR MALIGNANT NE 05/21/2017 DANA FRYE PLASTICS SEASONER OPERATOR Ot Z13.820 ENCOUNTER FOR SCREENING FOR OSTEOPOROSIS 05/21/2017 TEENA DELATORRE PLASTICS SEASONER OPERATOR Ot M54.6 PAIN IN THORACIC SPINE 05/21/2017 TEENA DELATORRE PLASTICS SEASONER OPERATOR Ot R07.81 PLEURODYNIA 05/21/2017 TEENA DELATORRE PLASTICS SEASONER OPERATOR Ot W19.XXXA UNSPECIFIED FALL, INITIAL ENCOUNTER 05/21/2017 TEENA DELATORRE PLASTICS SEASONER OPERATOR Ot Y99.8 OTHER EXTERNAL CAUSE STATUS 05/21/2017 RAHEEM MARINO Ot G43.909 MIGRAINE, UNSP, NOT INTRACTABLE, WITHOUT 05/21/2017 RAHEEM MARINOP Ot R22.0 LOCALIZED SWELLING, MASS AND LUMP, HEAD 05/21/2017 RAHEEM MARINO Ot Z01.812 ENCOUNTER FOR PREPROCEDURAL LABORATORY E 05/21/2017 JANES PECK PLASTICS SEASONER OPERATOR Ot Z12.31 ENCNTR SCREEN MAMMOGRAM FOR MALIGNANT NE 05/21/2017 JANES PECK PLASTICS SEASONER OPERATOR Ot Z12.31 ENCNTR SCREEN MAMMOGRAM FOR MALIGNANT NE 05/22/2017 JANES PECK PLASTICS SEASONER OPERATOR Ot Z12.31 ENCNTR SCREEN MAMMOGRAM FOR MALIGNANT NE 06/03/2017 JANES PECK PLASTICS SEASONER OPERATOR Ot Z12.31 ENCNTR SCREEN MAMMOGRAM FOR MALIGNANT NE 06/05/2017 JANES PECK APRN Ot Z12.31 ENCNTR SCREEN MAMMOGRAM FOR MALIGNANT NE 06/25/2017 JANES PECK APRN Ot Z12.31 ENCNTR SCREEN MAMMOGRAM FOR MALIGNANT NE 09/30/2017 JANES PECK APRN Ot T84.89XA OTH COMP OF INTERNAL ORTHOPEDIC PROSTH D 09/30/2017 JANES PECK PLASTICS SEASONER OPERATOR Ot T84.89XA OTH COMP OF INTERNAL ORTHOPEDIC PROSTH D 09/30/2017 JANES PECK APRN Ot T84.84XA PAIN DUE TO INTERNAL ORTHOPEDIC PROSTH D Procedures Code [place] [address] UA LONG DIP 01/14/2012 62890 XRAY CHEST 2 VIEW 02/06/2012 68515 BIOPSY SKIN LESION (SINGLE) 02/13/2012 21211 SHAVE SKIN LESION 0.6-1.0 cm 02/13/201222743 TRIGGER POINT INJ/1-2 MUS 05/27/2012 NICKY SUE 05/27/2012 30714 JOINT INJECTION- LARGE JOINT (SPECIFY MEDCIN DESCRIPTION) 07/23/2012 01033 XRAY HIP RIGHT UNILATERAL MIN 2 VIEWS 07/23/2012 26651 STOOL FOR POLYS & LEUKOCYTES 09/01/2012 32182 CLOSTRIDIUM (C-DIFF) 09/02/2012 13382 CULTURE STOOL 09/02/2012 19690 STOOL FOR O & P 09/02/2012 78285 STREP A (IN-HOUSE) 02/13/2013 28907 XRAY ANKLE R COMP MIN, 3 VIEWS 05/11/2013 ORTHOPEDI MARTINE DIMITRI 05/21/2013 17117 UA LONG DIP 09/26/2013 83600 ROUTINE VENIPUNCTURE 09/28/2013 60315 CMP 09/28/2013 72488 CBC 09/28/2013 75365 SED/ESR RATE RML 09/28/2013 30052 CULTURE URINE 09/29/2013 66909 ROUTINE VENIPUNCTURE 10/30/2013 59023 CMP 10/30/2013 7226510 GFR CALC (RESULT ONLY) 10/30/2013 75562 CMP 10/30/[address] ABDOMEN & PELVIS W/ & W/ O CONTRAST 11/12/2013 GENERAL S RICCARDO RUIZ 11/12/2013 89159 UA W/ CULTURE IF INDICATED 11/12/2013 20171 ROUTINE VENIPUNCTURE 01/07/2014 20973 UA W/ CULTURE IF INDICATED 01/07/2014 G0008 FLU ADMINISTRATION ( MEDICARE ONLY) 01/07/2014 90716 CBC 01/07/2014 33019 CMP 01/07/2014 0698091 GFR CALC (RESULT ONLY) 01/07/2014 53800 US PELVIC COMPL (REFLEX CPT - 92657) 01/12/2014 81505 MAMMOGRAM, SCREENING 01/21/2014 79721 BONE DENSITY, DEXA 01/21/2014 04838 BONE MINERAL DENSITY, HEEL US (IN HOUSE) 01/21/2014 93015 XRAY PELVIS 1 OR 2 VIEWS 02/16/2014 Results Test Result Range Urine Culture, Routine - 03/14/16 13:55 Urine Culture, Routine Note Pathology Report - 05/04/16 08:28 . Comment . Comment . Comment . Comment . Comment . Comment . Comment . Comment CBC With Differential/Platelet - 07/18/16 11:40 WBC 5.6 x10E3/uL 3.4-10.8 RBC 4.91 x10E6/uL 3.77-5.28 Hemoglobin 12.8 g/dL 11.1-15.9 Hematocrit 39.3 % 34.0-46.6 MCV 80 fL 79-97 MCH 26.1 pg 26.6-33.0 MCHC 32.6 g/dL 31.5-35.7 RDW 15.8 % 12.3-15.4 Platelets 210 x10E3/uL 150-379 Neutrophils 49 % Lymphs 35 % Monocytes 10 % Eos 5 % Basos 1 % Neutrophils (Absolute) 2.8 x10E3/uL 1.4-7.0 Lymphs (Absolute) 2.0 x10E3/uL 0.7-3.1 Monocytes(Absolute) 0.6 x10E3/uL 0.1-0.9 Eos (Absolute) 0.3 x10E3/uL 0.0-0.4 Baso (Absolute) 0.0 x10E3/uL 0.0-0.2 Immature Granulocytes 0 % Immature Grans (Abs) 0.0 x10E3/uL 0.0-0.1 Comp. Metabolic Panel (14) - 07/18/16 11:40 Glucose, Serum 95 mg/dL 65-99 BUN 17 mg/dL 8-27 Creatinine, Serum 0.98 mg/dL 0.57-1.00 eGFR If NonAfricn Am 59 mL/min/1.73 >59 eGFR If Africn Am 68 mL/min/1.73 >59 BUN/Creatinine Ratio 17 12-28 Sodium, Serum 141 mmol/L 134-144 Potassium, Serum 4.2 mmol/L 3.5-5.2 Chloride, Serum 102 mmol/L 96-106 Carbon Dioxide, Total 21 mmol/L 18-29 Calcium, Serum 9.7 mg/dL 8.7-10.3 Protein, Total, Serum 7.5 g/dL 6.0-8.5 Albumin, Serum 4.3 g/dL 3.6-4.8 Globulin, Total 3.2 g/dL 1.5-4.5 A/G Ratio 1.3 1.2-2.2 Bilirubin, Total 0.6 mg/dL 0.0-1.2 Alkaline Phosphatase, S 94 IU/L 39-117 AST (SGOT) 23 IU/L 0-40 ALT (SGPT) 15 IU/L 0-32 Lipid Panel - 07/18/16 11:40 Cholesterol, Total 195 mg/dL 100-199 Triglycerides 81 mg/dL 0-149 HDL Cholesterol 67 mg/dL >39 VLDL Cholesterol George 16 mg/dL 5-40 LDL Cholesterol Calc 112 mg/dL 0-99 Hemoglobin A1c - 07/18/16 11:40 Hemoglobin A1c 6.5 % 4.8-5.6 Thyroid Lorain Profile - 07/18/16 11:40 TSH 2.540 uIU/mL 0.450-4.500 TISSUE, 4 SPECIMENS - 05/13/17 16:01 A SOURCE NRG A GROSS DESCRIPTION NRG A DIAGNOSIS NRG CULTURE, URINE - 08/23/17 16:43 CULTURE, URINE, ROUTINE SEE NOTE NRG CULTURE, URINE - 08/27/17 11:26 CULTURE, URINE, ROUTINE SEE NOTE NRG CULTURE, GENITAL - 08/27/17 11:26 CULTURE, GENITAL SEE NOTE NRG [id number] - 09/27/17 10:07 Serum or plasma urea nitrogen measurement (mass/volume) 13 mg/dL 7-18 Serum or plasma creatinine measurement (mass/volume) 0.86 mg/dL 0.60-1.30 Serum or plasma urea nitrogen/creatinine mass ratio 15 NRG Serum or plasma creatinine measurement with calculation of estimated glomerular filtration rate > NRG Encounters ACCT No. Visit Date/Time Discharge Status Pt. Type Provider Facility Loc./Unit Complaint [id number] 06/16/2014 10:02:00 06/16/2014 23:59:59 CLS Outpatient DONAOVN STERLING APRN [id number] 04/27/2014 10:22:00 04/27/2014 23:59:59 CLS Outpatient DONAVON STERLING APRN [id number] 04/12/2014 00:00:00 04/12/2014 23:59:59 CLS Outpatient DONAVON STERLING APRN [id number] 02/16/2014 09:32:00 02/16/2014 23:59:59 CLS Outpatient SOPHIE WADE DO [id number] 02/16/2014 09:32:00 02/16/2014 23:59:59 CLS Outpatient DONAVON STERLING APRN [id number] 01/21/2014 08:52:00 01/21/2014 23:59:59 CLS Outpatient DAAN FRYE APRN [id number] 11/12/2013 14:34:00 11/12/2013 23:59:59 CLS Outpatient ASHER AGUIAR DONAVON Metz [id number] 11/12/2013 14:34:00 11/12/2013 23:59:59 CLS Outpatient ASHER AGUIAR DONAVON Metz [id number] 10/30/2013 13:51:00 10/30/2013 23:59:59 CLS Outpatient WADE DO SOPHIE Gordon [id number] 09/28/2013 13:01:00 09/28/2013 23:59:59 CLS Outpatient WADE DOSOPHIE [id number] 09/26/2013 14:02:00 09/26/2013 23:59:59 CLS Outpatient ASHER AGUIAR DONAVON Metz [id number] 09/14/2013 11:15:00 09/14/2013 23:59:59 CLS Outpatient LEILANI HOLLINGSWORTH MD [id number] 05/21/2013 08:51:00 05/21/2013 23:59:59 CLS Outpatient ASHER AGUIAR DONAVON Metz [id number] 05/11/2013 15:21:00 05/11/2013 23:59:59 CLS Outpatient SHANTEMARIANA AGUIAR ANMOL Shi [id number] 03/04/2013 11:03:00 03/04/2013 23:59:59 CLS Outpatient SAMEERA CUMMINS APRNLORE Metz [id number] 02/13/2013 13:23:00 02/13/2013 23:59:59 CLS Outpatient CUMMINS COSME DONG Metz [id number] 12/11/2012 08:54:00 12/11/2012 23:59:59 CLS Outpatient SHERI DOSOPHIE [id number] 06/16/2012 14:49:00 06/16/2012 23:59:59 CLS Outpatient [id number] 05/27/2012 14:59:00 05/27/2012 23:59:59 CLS Outpatient SHERI DOSOPHIE [id number] 02/06/2012 15:28:00 02/06/2012 23:59:59 CLS Outpatient SHERI DOSOPHIE [id number] 09/01/2012 11:08:00 Document Registration [id number] 07/23/2012 15:00:00 Document Registration [id number] 09/27/2017 09:57:00 09/27/2017 23:59:59 CLS Outpatient CISCO JANES Metz PLASTICS SEASONER OPERATOR [facility] RAD PAIN IN RIGHT HIP [id number] 06/04/2017 09:52:00 06/04/2017 23:59:59 CLS Outpatient PECKJANES Houston Isaías PLASTICS SEASONER OPERATOR [facility] RAD Z12.31 SCREENING [id number] 03/27/2016 10:13:00 03/27/2016 18:30:00 DIS Outpatient RICCARDO RUIZ DO [facility] SD BARETTS [id number] 03/22/2016 05:49:00 03/22/2016 11:18:00 DIS Outpatient RICCARDO RUIZ DO [facility] PREOP BARETTS [id number] 03/12/2016 14:33:00 03/12/2016 23:59:59 CLS Outpatient CISCO JANES Metz PLASTICS SEASONER OPERATOR [facility] RAD SCREENING [id number] 01/09/2016 19:30:00 01/09/2016 21:29:00 DIS Emergency JORDON SALEH MD [facility] ER FALL [id number] 08/17/2015 09:09:00 08/17/2015 23:59:59 CLS Outpatient RAHEEM MARINO [facility] RAD MIGRAINE WITHOUT STATUS MIGRAINOSUS LOCALIZED SWEL [id number] 06/01/2015 15:54:00 06/01/2015 23:59:59 CLS Outpatient TEENA DELATORRE PLASTICS SEASONER OPERATOR [facility] RAD UNSPECIFIED FALL INITIAL MID BACK PAIN RIB PAIN R [id number] 05/10/2015 07:01:00 05/10/2015 12:55:00 DIS Outpatient SIMÓN MULLINS FACCPHILLIP FACP CCDS [facility] CATH CAD,ANGINA, FATIGUE [id number] 03/08/2015 10:37:00 03/08/2015 23:59:59 CLS Outpatient DANA FRYE APRN [facility] RAD SCREENING [id number] 11/22/2014 17:04:00 11/22/2014 19:37:00 DIS Emergency MARYBEL QUINN DO [facility] ER RT FOOT PAIN [id number] 03/04/2014 09:44:00 03/04/2014 23:59:59 CLS Outpatient UDAYDANA PLASTICS SEASONER OPERATOR [facility] RAD ROUTINE,OSTEO [id number] 02/02/2014 12:21:00 02/02/2014 15:35:00 DIS Outpatient RUIZ DORICCARDO D [facility] SDC ABDOMINAL PAIN; HX BARRETTS [id number] 01/27/2014 07:36:00 01/27/2014 23:59:59 CLS Outpatient RUIZ DORICCARDO D [facility] PREOP ABDOMINAL PAIN [id number] 01/08/2014 13:39:00 01/08/2014 23:59:59 CLS Outpatient DONAVON STERLING PLASTICS SEASONER OPERATOR [facility] RAD ABD PAIN [id number] 12/03/2013 08:48:00 12/03/2013 23:59:59 CLS Outpatient DONAVON STERLING PLASTICS SEASONER OPERATOR [facility] RAD ABD PAIN, PARTIAL HYSTERECTOMY [id number] 03/16/2016 18:05:00 Document Registration [id number] 07/19/2016 11:09:00 Document Registration [id number] 05/09/2016 15:14:00 Document Registration [id number] 10/09/2017 17:15:00 10/09/2017 23:59:59 [facility] [id number] 08/27/2017 09:40:00 Document Registration [id number] 08/23/2017 16:40:00 Document Registration [id number] 05/13/2017 15:00:00 Document Registration [id number] 05/13/2017 14:55:00 Document Registration
[2017-10-14 01:04] LABS: BILIRUBIN,URINE NEGATIVE (NEGATIVE); CLARITY,URINE CLEAR; COLOR,URINE YELLOW; GLUCOSE, URINE (UA) NEGATIVE (NEGATIVE); KETONES,URINE 2+ (NEGATIVE); LEUKOCYTE ESTERASE ,URINE 1+ (NEGATIVE); NITRITE,URINE NEGATIVE (NEGATIVE); PH,URINE 7 (5-9); PROTEIN,URINE NEGATIVE (NEGATIVE); UROBILINOGEN,URINE NORMAL (NORMAL)
--- NOTE | 2017-10-14 01:14 | ED Abdominal Pain ---
General Chief Complaint: Abdominal/GI Problems Stated Complaint: CERVICAL PAIN Nursing Triage Note: c/o lower middle abdomen pain. patient denies n/v. patient states had 5 days of diarrhea but that stopped 5 days ago. Sepsis Screen: No Definite Risk Source of Information: Patient History of Present Illness Date Seen by Provider: Oct 14, 2017 Time Seen by Provider: 00:33 Initial Comments PT C/O LOWER ABDOMINAL PAIN SINCE SATURDAY NIGHT 10/12/17 PAIN IS WORSE JUST BEFORE SHE URINATES, AND IS BETTER AFTER SHE URINATES, BUT OVERALL THE PAIN IS CONSTANT AND BECOMING MUCH WORSE HAS INTERMITTENT PAIN FROM HER RECTUM TO HER PUBIC BONE, WHEN SHE SITS PT STATES SHE IS VERY BLOATED NO NAUSEA/VOMITING HAD DIARRHEA ALL WEEK FROM SATURDAY UNTIL SATURDAY. HAD 2 SMALL SOFT FORMED STOOLS TODAY NO FEVER WENT TO [facility] ON SATURDAY FOR DIARRHEA, BUT NO TESTS AND NO RX-- STATES SHE DIDN'T NEED TO BE CONCERNED UNLESS DIARRHEA LASTED OVER A WEEK PT ONLY HAD A DIET SHAKE AND A BANANA THIS MORNING TO EAT, NOTHING ELSE TO EAT TODAY--DECREASED APPETITE HAS BEEN DRINKING FLUIDS WELL TODAY HAS BEEN VOIDING A NORMAL AMOUNT HAS NOT TAKEN ANYTHING FOR PAIN ( HAS OXYCODONE FOR ONGOING HIP PAIN, BUT HAS NOT TAKEN ANY SINCE THIS PAIN STARTED) [facility]AFUL PECK ORTHOPEDIC SURGEON: DR. CANO Allergies and Home Medications Allergies Coded Allergies: ciprofloxacin (Verified Allergy, Intermediate, LEG CRAMPS, 03/22/16) hydrocodone (Verified Allergy, Unknown, 11/22/14) morphine (Verified Allergy, Unknown, 11/22/14) pseudoephedrine (Verified Allergy, Unknown, 11/22/14) triprolidine (Verified Allergy, Unknown, 11/22/14) Home Medications Melatonin 2.5 Mg Tab.chew, 2.5 MG PO HS PRN for SLEEP, (Reported) Nitrofurantoin Monohyd/M-Cryst 100 Mg Capsule, 100 MG PO BID Prescribed by: MARYBEL QUINN on 10/14/17131 Pantoprazole Sodium 40 Mg Tablet.dr, 40 MG PO DAILY, (Reported) Phenazopyridine HCl 200 Mg Tablet, 1 TAB PO TID Prescribed by: MARYBEL QUINN on 10/14/17131 Sucralfate 1 Gm Tablet, 1 GM PO QIDACHS, (Reported) Patient Home Medication List Home Medication List Reviewed: Yes Review of Systems Constitutional: no symptoms reported Respiratory: No Symptoms Reported Cardiovascular: No Symptoms Reported Gastrointestinal: See HPI, Abdomen Distended, Abdominal Pain; Denies Constipated; Diarrhea; Denies Nausea; Poor Appetite; Denies Poor Fluid Intake, Denies Vomiting Genitourinary: See HPI; Denies Flank Pain Musculoskeletal: other (ONGOING RIGHT HIP PAIN--S/P RIGHT HIP REPLACEMENT 2017) Skin: no symptoms reported Psychiatric/Neurological: No Symptoms Reported Endocrine: No Symptoms Reported Hematologic/Lymphatic: No Symptoms Reported Past Cgmfwsg-Eaauwx-Qzzdrx Hx Patient Social History Alcohol Use: Rarely Uses Recreational Drug Use: No Smoking Status: Former Smoker (03/26 PPD, QUIT 1980) Type Used: Cigarettes Former Smoker, Quit: Mar 25, 1980 Recent Foreign Travel: No Contact w/Someone Who Travel: No Recent Infectious Disease Expo: No Recent Hopitalizations: No Immunizations Up To Date Date of Pneumonia Vaccine: Dec 07, 2014 Date of Influenza Vaccine: Dec 07, 2014 Seasonal Allergies Seasonal Allergies: No Past Medical History Surgeries: Yes (RIGHT LUNG--REMOVAL OF MASS--HISTOPLASMOSIS; RIGHT HIP REPLACEMENT 06/2017; RIGHT SHOULDER; HYST/OVARIES INTACT; CARDIAC CATH--NO INTERVENTION 1996; EGD'S--LAST ONE 2015; COLONOSCOPIES--LAST ONE 2013) Appendectomy, Section, Gallbladder, Hysterectomy, Joint Replacement, Orthopedic, Tonsillectomy, Tubal Ligation Respiratory: Yes (POST OP P.E.'S--2009 AFTER RIGHT LUNG SURGERY AND 06/2017 AFTER RIGHT HIP REPLACEMENT; RIGHT LUNG MASS REMOVED 2009--HISTOPLASMOSIS) Asthma ( A CHILD), Pulmonary Embolism Cardiac: Yes (ANGINA-STRESS INDUCED; STATES SHE HAD 2 HEART ATTACKS IN 1996 -- FELT TO BE STRESS-RELATED. HAD CARDIAC CATH WITH NO INTERVENTION--DNOE IN [place]; STILL HAS "ANGINA" AND TAKES NTG FOR IT) Angina, Coronary Artery Disease, Heart Attack, High Cholesterol Neurological: Yes Headaches /Migraines Reproductive Disorders: No INTERMEDIATE CARD TENDER History: Hysterectomy, Menopausal Sexually Transmitted Disease: No HIV/AIDS: No Genitourinary: Yes Kidney Stones, UTI-Chronic Gastrointestinal: Yes Gastroesophageal Reflux, Means's Esophagus, Diverticulosis, Polyps Musculoskeletal: Yes (MILD BACK PAIN; RIGHT HIP PAIN--S/P REPLACEMENT 07/16/17- -DR. CANO) Arthritis, Chronic Back Pain Endocrine: Yes Diabetes, Non-Insulin dep HEENT: No Loss of Vision: Bilateral Hearing Impairment: Denies Cancer: Yes (SQUAMOUS CELL) Skin Did You Recieve Any Treatments: Yes What Type of Treatment Did You: Surgical Intervention Psychosocial: Yes Sleep Difficulties Integumentary: No Blood Disorders: No Adverse Reaction/Blood Tranf: No (HAS HAD BLOOD WITH NO REACTION) Physical Exam Vital Signs Vital Signs - First Documented 10/14/17 00:28 Temp 98.2 Pulse 88 Resp 18 B/P (MAP) 139/78 (98) Pulse Ox 98 Capillary Refill : Less Than 3 Seconds Height/Weight/BMI Height: 5'8.00" Weight: 215lbs. 0.0oz. 97.461980ud; 32.7 BMI Method:Stated General Appearance: WD/WN, no apparent distress Neck: normal inspection Respiratory: normal breath sounds, no respiratory distress, no accessory muscle use Cardiovascular: regular rate, rhythm, no murmur Gastrointestinal: normal bowel sounds, soft, no organomegaly, no pulsatile mass ; No distended, No guarding, No rebound; tenderness (LOWER ABDOMINAL TENDERNESS/ SUPRAPUBIC AREA); No hernia, No mass Extremities: no pedal edema, normal capillary refill Back: normal inspection, no CVA tenderness Neurologic/Psychiatric: applications analyst II-XII nml as tested, no motor/sensory deficits, alert, normal mood/affect, oriented x 3 Skin: normal color, warm/dry; No rash Focused Exam Lactate Level 10/14/17 02:15: Lactic Acid Level Laboratory Tests Test 10/14/17 02:15 Progress/Results/Core Measures Results/Orders Lab Results Laboratory Tests Test 10/14/17 00:45 10/14/17 01:40 10/14/17 02:15 Range/Units Urine Color YELLOW Urine Clarity CLEAR Urine pH 7 5-9 Urine Specific Randall 1.005 L 1.016-1.022 Urine Protein NEGATIVE NEGATIVE Urine Glucose (UA) NEGATIVE NEGATIVE Urine Ketones 2+ H NEGATIVE Urine Nitrite NEGATIVE NEGATIVE Urine Bilirubin NEGATIVE NEGATIVE Urine Urobilinogen NORMAL NORMAL MG/DL Urine Leukocyte Esterase 1+ H NEGATIVE Urine RBC (Auto) 1+ H NEGATIVE Urine RBC 0-2 /HPF Urine WBC 5-10 H /HPF Urine Squamous Epithelial Cells 5-10 /HPF Urine Crystals NONE /LPF Urine Bacteria TRACE /HPF Urine Casts NONE /LPF Urine Mucus NEGATIVE /LPF Urine Culture Indicated YES White Blood Count 12.1 H 4.3-11.0 10^3/uL Red Blood Count 4.88 4.35-5.85 10^6/uL Hemoglobin 12.6 11.5-16.0 G/DL Hematocrit 38 35-52 % Mean Corpuscular Volume 78 L 80-99 FL Mean Corpuscular Hemoglobin 26 25-34 PG Mean Corpuscular Hemoglobin Concent 33 32-36 G/DL Red Cell Distribution Width 15.1 H 10.0-14.5 % Platelet Count 215 130-400 10^3/uL Mean Platelet Volume 8.9 7.4-10.4 FL Neutrophils (%) (Auto) 72 42-75 % Lymphocytes (%) (Auto) 18 12-44 % Monocytes (%) (Auto) 10 0-12 % Eosinophils (%) (Auto) 0 0-10 % Basophils (%) (Auto) 0 0-10 % Neutrophils # (Auto) 8.8 H 1.8-7.8 X 10^3 Lymphocytes # (Auto) 2.2 1.0-4.0 X 10^3 Monocytes # (Auto) 1.2 H 0.0-1.0 X 10^3 Eosinophils # (Auto) 0.0 0.0-0.3 10^3/uL Basophils # (Auto) 0.0 0.0-0.1 10^3/uL Sodium Level 141 135-145 MMOL/L Potassium Level 3.8 3.6-5.0 MMOL/L Chloride Level 108 H 98-107 MMOL/L Carbon Dioxide Level 22 21-32 MMOL/L Anion Gap 11 5-14 MMOL/L Blood Urea Nitrogen 9 7-18 MG/DL Creatinine 0.82 0.60-1.30 MG/DL Estimat Glomerular Filtration Rate > 60 BUN/Creatinine Ratio 11 Glucose Level 111 H 70-105 MG/DL Calcium Level 9.8 8.5-10.1 MG/DL Total Bilirubin 1.1 H 0.1-1.0 MG/DL Aspartate Amino Transf (AST/SGOT) 18 5-34 U/L Alanine Aminotransferase (ALT/SGPT) 12 0-55 U/L Alkaline Phosphatase 90 40-136 U/L Total Protein 7.5 6.4-8.2 GM/DL Albumin 4.3 3.2-4.5 GM/DL Amylase Level 27 25-125 U/L Lipase 22 8-78 U/L My Orders Orders - MARYBEL QUINN DO Ua Culture If Indicated (10/14/17 00:57) Urine Culture (10/14/17 00:45) Phenazopyridine Tablet (Pyridium Tablet) (10/14/17 01:30) Ketorolac Injection (Toradol Injection) (10/14/17 01:30) Rx-Nitrofurantoin Bullock (Rx-Macrobid) (10/14/17 01:29) Saline Lock/Iv-Start (10/14/17 01:36) Amylase (10/14/17 01:36) Cbc With Automated Diff (10/14/17 01:36) Comprehensive Metabolic Panel (10/14/17 01:36) Lactic Acid Analyzer (10/14/17 01:36) Lipase (10/14/17 01:36) Blood Culture (10/14/17 01:36) Ct Abd/Pelvis Wo(Kidney Stone) (10/14/17 01:36) Ketorolac Injection (Toradol Injection) (10/14/17 01:36) Saline Lock/Iv-Start (10/14/17 01:36) Lactated Ringers (Lr 1000 Ml Iv Solution (10/14/17 01:36) Acute Abd Series (10/14/17 01:36) Metronidazole 500mg/100ml Ivpb (Flagyl 5 (10/14/17 02:30) Medications Given in ED Current Medications Medications Dose Ordered Sig/Emily Route Start Time Stop Time Status Last Admin Dose Admin Lactated Ringer's 1,000 ml @ 0 mls/hr Q0M ONCE IV 10/14/17 01:36 10/14/17 01:39 DC 10/14/17 01:46 0 MLS/HR Vital Signs/I&O 10/14/17 00:28 Temp 98.2 Pulse 88 Resp 18 B/P (MAP) 139/78 (98) Pulse Ox 98 Blood Pressure Mean: 98 Progress Progress Note : Progress Note 0135--TEMP NOW 101.2. ADDITIONAL TESTS ORDERED. SYMPTOMS IMPROVED WITH MEDICATIONS Diagnostic Imaging Comments ACUTE ABDOMEN XRAYS--NON SPECIFIC BOWEL GAS PATTERN, PENDING RADIOLOGIST REVIEW CT ABDOMEN/PELVIS--ACUTE SIGMOID DIVERTICULITIS, NO ABSCESS OR PERFORATION, BILATERAL INTRARENAL STONES, STABLE CBD DILATION AT 9 MM POST CHOLECYSTECTOMY-- PER [facility] VIA FAX @ [id number] Reviewed: Reviewed by Ar Departure Communication (Admissions) 0228--SPOKE WITH DR. RUIZ, ACCEPTS PT FOR ADMIT. ORDERS NOTED Impression Primary Impression: Urinary tract infection Additional Impression: ACUTE SIGMOID DIVERTICULITIS Disposition: ADMITTED INPATIENT Condition: Improved Admissions Decision to Admit Reason: Admit from ER (General) Decision to Admit/Date: Oct 14, 2017 Time/Decision to Admit Time: 02:30 Departure-Patient Inst. Referrals: SOPHIE WADE DO (PCP) Primary Care Physician JANES PECK APRN (Family) Primary Care Physician Add. Discharge Instructions: All discharge instructions reviewed with patient and/or family. Voiced understanding. MARYBEL QUINN DO Oct 14, 2017 01:13
[2017-10-14 01:15] LABS: BACTERIA,URINE TRACE /HPF; RBC,URINE 0-2 /HPF
[2017-10-14] MEDS ORDERED: RX-NITROFURANTOIN 100 MG (MACROBID) CAP PPK#2 PO STA (01:29)
[2017-10-14] MEDS ORDERED: KETOROLAC 60 MG/2 ML VIAL IM ONE (01:30)
[2017-10-14] MEDS ORDERED: PHENAZOPYRIDINE 100 MG (PYRIDIUM) TABLET PO ONE (01:30)
[2017-10-14] MEDS ORDERED: PHEN-640 PO (01:32)
[2017-10-14] MEDS ORDERED: NITR-65 PO (01:32)
[2017-10-14] MEDS ORDERED: LACTATED RINGERS 1,000 ML IV ONE (01:36)
[2017-10-14] MEDS ORDERED: KETOROLAC 30 MG/ML VIAL IVP STA (01:36)
[2017-10-14 01:49] LABS: BASOPHILS % (AUTO) 0 % (0-10); EOSINOPHILS % (AUTO) 0 % (0-10); HEMATOCRIT 38 % (35-52); HEMOGLOBIN 12.6 G/DL (11.5-16.0); LYMPHOCYTES # (AUTO) 2.2 X 10^3 (1.0-4.0); LYMPHOCYTES % (AUTO) 18 % (12-44); MEAN CORPUSCULAR HEMOGLOBIN 26 PG (25-34); MEAN CORPUSCULAR HGB CONC 33 G/DL (32-36); MEAN CORPUSCULAR VOLUME 78 FL (80-99); MEAN PLATELET VOLUME 8.9 FL (7.4-10.4); MONOCYTES # (AUTO) 1.2 X 10^3 (0.0-1.0); MONOCYTES % (AUTO) 10 % (0-12); NEUTROPHILS # (AUTO) 8.8 X 10^3 (1.8-7.8); NEUTROPHILS % (AUTO) 72 % (42-75); PLATELET COUNT 215 10^3/uL (130-400); RED BLOOD COUNT 4.88 10^6/uL (4.35-5.85); RED CELL DISTRIBUTION WIDTH 15.1 % (10.0-14.5); WHITE BLOOD COUNT 12.1 10^3/uL (4.3-11.0)
[2017-10-14 02:08] LABS: ALANINE AMINOTRANSFERASE 12 U/L (0-55); ALBUMIN 4.3 GM/DL (3.2-4.5); ALKALINE PHOSPHATASE 90 U/L (40-136); AMYLASE 27 U/L (25-125); BILIRUBIN,TOTAL 1.1 MG/DL (0.1-1.0); BUN/CREATININE RATIO 11; CALCIUM 9.8 MG/DL (8.5-10.1); CARBON DIOXIDE 22 MMOL/L (21-32); CHLORIDE 108 MMOL/L (98-107); CREATININE SERUM 0.82 MG/DL (0.60-1.30); GFR ESTIMATED > 60; GLUCOSE 111 MG/DL (70-105); LIPASE 22 U/L (8-78); POTASSIUM 3.8 MMOL/L (3.6-5.0); SODIUM 141 MMOL/L (135-145); TOTAL PROTEIN 7.5 GM/DL (6.4-8.2)
[2017-10-14] MEDS ORDERED: metroNIDAZOLE 500MG/100ML IVPB 100 ML IV ONE (02:30)
[2017-10-14] MEDS ORDERED: fentaNYL INJECTION 100 MCG/2 ML AMP IVP STA (02:33)
[2017-10-14] MEDS ORDERED: fentaNYL INJECTION 100 MCG/2 ML AMP ONE (02:38)
[2017-10-14] MEDS ORDERED: ACETAMINOPHEN 500 MG TAB (TYLENOL) ONE ×2 (02:39→04:14)
[2017-10-14] MEDS ORDERED: ONDANSETRON 4 MG/2 ML (SDV) Z0FRAN IVP ONE (02:45)
[2017-10-14] MEDS ORDERED: ACETAMINOPHEN 500 MG TAB (TYLENOL) PO ONE (02:45)
--- OUTSIDE RECORDS SUMMARY | 2017-10-14 02:53 | XMS REPORT | Clinical Summary ---
Author Author [facility] Organization [facility] Address Unknown Phone Unavailable Care Team Providers Care Iuss Acoustic Analyst Name Role Phone Chrissy Bui MD Unavailable Unavailable Arnoldo Osorio MD Unavailable Presley Soria APRN PCP Wendie Mina MD Unavailable Isaac Moore DO Unavailable Unavailable Snadra Lowe RN Unavailable Unavailable Source Comments Some departments are not documenting in the electronic medical record. If you do not see the information that you expected, contact Release of Information in the Health Information Management department at [phone] for further assistance in locating additional records.[facility] Allergies Active Allergy Reactions Severity Noted Date [...]
--- OUTSIDE RECORDS SUMMARY | 2017-10-14 03:01 | XMS REPORT | Continuity of Care Document ---
Author Author Formerly [facility] Address Unknown Phone Unavailable Allergies Active [...] Allergy 05/27/2012 Yes No Allergy Information Available [id number] Drug Allergy Unknown N/A 2013 Yes hydrocodone [id number] Drug Allergy Unknown N/A 11/22/2014 Yes morphine [id number] Drug Allergy Unknown N/A 11/22/2014 Yes pseudoephedrine [id number] Drug Allergy Unknown N/A 11/22/2014 Yes triprolidine [id number] Drug Allergy Unknown N/A 11/22/2014 Yes ciprofloxacin [id number] Drug Allergy Moderate LEG CRAMPS 03/22/2016 Medications [...] CUMMINS APRN 461.8 ACUTE PANSINUSITIS 07/05/2008 ASHER PRODUCT DEVELOPMENT TECHNICIAN, DONAVON R 461.8 ACUTE PANSINUSITIS 07/05/2008 SHANTE AGUIAR, ANMOL Shi 461.8 ACUTE PANSINUSITIS 07/05/2008 LEILANI HOLLINGSWORTH MD 461.8 ACUTE PANSINUSITIS 07/05/2008 WADE SOPHIE THOMPSON K 461.8 ACUTE PANSINUSITIS 07/05/2008 ASHER PRODUCT DEVELOPMENT TECHNICIAN, DONAVON R 461.8 ACUTE PANSINUSITIS 07/05/2008 SOPHIE WADE DO K 461.8 ACUTE PANSINUSITIS 07/05/2008 ASHER PRODUCT DEVELOPMENT TECHNICIAN, DONAVON R 461.8 ACUTE PANSINUSITIS 07/05/2008 ASHER PRODUCT DEVELOPMENT TECHNICIAN, DONAVON R 461.8 ACUTE PANSINUSITIS 07/05/2008 UDAY AGUIAR, DANA A 461.8 ACUTE PANSINUSITIS 07/05/2008 SOPHIE WADE DO K 461.8 ACUTE PANSINUSITIS 07/05/2008 ASHER PRODUCT DEVELOPMENT TECHNICIAN, DONAVON R 461.8 ACUTE PANSINUSITIS 07/05/2008 ASHER PRODUCT DEVELOPMENT TECHNICIAN, DONAVON R 461.8 ACUTE PANSINUSITIS 07/05/2008 ASHER PRODUCT DEVELOPMENT TECHNICIAN, DONAVON R 461.8 ACUTE PANSINUSITIS 06/04/2011 SOPHIE [...] 726.73 PLANTAR CALCANEAL SPUR RIGHT 06/04/2011 ASHER PRODUCT DEVELOPMENT TECHNICIAN, DONAVON R 719.46 joint pain, localized in the knee 06/04/2011 ASHER PRODUCT DEVELOPMENT TECHNICIAN, DONAVON R 726.73 PLANTAR CALCANEAL SPUR RIGHT 06/04/2011 ASHER PRODUCT DEVELOPMENT TECHNICIAN, DONAVON R 719.46 joint pain, localized in the knee 06/04/2011 ASHER PRODUCT DEVELOPMENT TECHNICIAN, DONAVON R 726.73 PLANTAR CALCANEAL SPUR RIGHT 06/04/2011 ASHER PRODUCT DEVELOPMENT TECHNICIAN, DONAVON R 719.46 joint pain, localized in the knee 06/04/2011 ASHER PRODUCT DEVELOPMENT TECHNICIAN, DONAVON R 726.73 PLANTAR CALCANEAL SPUR RIGHT [...] IN STRIKING AGAINST OTHER OBJECT 06/26/2011 ASHER PRODUCT DEVELOPMENT TECHNICIAN, DONAVON R E888.1 ACCIDENTAL FALL RESULTING IN STRIKING AGAINST OTHER OBJECT 06/26/2011 ASHER PRODUCT DEVELOPMENT TECHNICIAN, DONAVON R E888.1 ACCIDENTAL FALL RESULTING IN STRIKING AGAINST OTHER OBJECT 06/26/2011 UDAY PRODUCT DEVELOPMENT TECHNICIAN, DANA A E888.1 ACCIDENTAL FALL RESULTING IN STRIKING AGAINST OTHER OBJECT 06/26/2011 WADE DO, SOPHIE K E888.1 ACCIDENTAL FALL RESULTING IN STRIKING AGAINST OTHER OBJECT 06/26/2011 ASHER PRODUCT DEVELOPMENT TECHNICIAN, DONAVON R E888.1 ACCIDENTAL FALL RESULTING IN STRIKING AGAINST OTHER OBJECT 06/26/2011 ASHER PRODUCT DEVELOPMENT TECHNICIAN, DONAVON R E888.1 ACCIDENTAL FALL RESULTING IN STRIKING AGAINST OTHER OBJECT 06/26/2011 ASHER PRODUCT DEVELOPMENT TECHNICIAN, DONAVON R E888.1 ACCIDENTAL FALL RESULTING IN [...] IN JOINT INVOLVING UPPER ARM 08/22/2011 LEILANI HOLLINGSWROTH MD 691.8 ECZEMA 08/22/2011 LEILANI HOLLINGSWORTH MD [...] K 599.0 URINARY TRACT INFECTION 01/14/2012 ASHER PRODUCT DEVELOPMENT TECHNICIAN, DONAVON R 599.0 URINARY TRACT INFECTION 01/14/2012 ASHER PRODUCT DEVELOPMENT TECHNICIAN, DONAVON R 599.0 URINARY TRACT INFECTION 01/14/2012 UDAY PRODUCT DEVELOPMENT TECHNICIAN, DANA A 599.0 URINARY TRACT INFECTION 01/14/2012 WADE DO, SOPHIE K 599.0 URINARY TRACT INFECTION 01/14/2012 ASHER PRODUCT DEVELOPMENT TECHNICIAN, DONAVON R 599.0 URINARY TRACT INFECTION 01/14/2012 ASHER PRODUCT DEVELOPMENT TECHNICIAN, DONAVON R 599.0 URINARY TRACT INFECTION 01/14/2012 ASHER PRODUCT DEVELOPMENT TECHNICIAN, DONAVON R 599.0 URINARY TRACT INFECTION 02/06/2012 [...] DO, SOPHIE K 786.2 COUGH 02/06/2012 PLACIDO PRODUCT DEVELOPMENT TECHNICIAN, DONG R 466.0 BRONCHITIS, ACUTE 02/06/2012 PLACIDO PRODUCT DEVELOPMENT TECHNICIAN, DONG R 784.91 POSTNASAL DRIP 02/06/2012 PLACIDO PRODUCT DEVELOPMENT TECHNICIAN, DONG R 786.2 COUGH 02/06/2012 PLACIDO PRODUCT DEVELOPMENT TECHNICIAN, DONG R 466.0 BRONCHITIS, ACUTE 02/06/2012 PLACIDO PRODUCT DEVELOPMENT TECHNICIAN, DONG R 784.91 POSTNASAL DRIP 02/06/2012 PLACIDO PRODUCT DEVELOPMENT TECHNICIAN, DONG R 786.2 COUGH 02/06/2012 ASHER PRODUCT DEVELOPMENT TECHNICIAN, DONAVON R 466.0 BRONCHITIS, ACUTE 02/06/2012 ASHER PRODUCT DEVELOPMENT TECHNICIAN, DONAVON R 784.91 POSTNASAL DRIP 02/06/2012 ASHER PRODUCT DEVELOPMENT TECHNICIAN, DONAVON R 786.2 COUGH 02/06/2012 SHANTE PRODUCT DEVELOPMENT TECHNICIAN, ANMOL S 466.0 BRONCHITIS, ACUTE 02/06/2012 SHANTE PRODUCT DEVELOPMENT TECHNICIAN, ANMOL S 784.91 POSTNASAL DRIP 02/06/2012 SHANTE PRODUCT DEVELOPMENT TECHNICIAN, ANMOL S 786.2 COUGH 02/06/2012 LEILANI HOLLINGSWORTH MD 466.0 BRONCHITIS, ACUTE 02/06/2012 LEILANI HOLLINGSWORTH MD 784.91 POSTNASAL DRIP 02/06/2012 LEILANI HOLLINGSWORTH MD 786.2 COUGH 02/06/2012 WADE DO, SOPHIE K 466.0 BRONCHITIS, ACUTE 02/06/2012 WADE DO, SOPHIE K 784.91 POSTNASAL DRIP 02/06/2012 WADE DO, SOPHIE K 786.2 COUGH 02/06/2012 ASHER PRODUCT DEVELOPMENT TECHNICIAN, DONAVON R 466.0 BRONCHITIS, ACUTE 02/06/2012 ASHER PRODUCT DEVELOPMENT TECHNICIAN, DONAVON R 784.91 POSTNASAL DRIP 02/06/2012 ASHER PRODUCT DEVELOPMENT TECHNICIAN, DONAVON R 786.2 COUGH 02/06/2012 WADE DO, SOPHIE K 466.0 BRONCHITIS, ACUTE 02/06/2012 WADE DO, SOPHIE K 784.91 POSTNASAL DRIP 02/06/2012 WADE DO, SOPHIE K 786.2 COUGH 02/06/2012 ASHER PRODUCT DEVELOPMENT TECHNICIAN, DONAVON R 466.0 BRONCHITIS, ACUTE 02/06/2012 ASHER PRODUCT DEVELOPMENT TECHNICIAN, DONAVON R 784.91 POSTNASAL DRIP 02/06/2012 ASHER PRODUCT DEVELOPMENT TECHNICIAN, DONAVON R 786.2 COUGH 02/06/2012 ASHER PRODUCT DEVELOPMENT TECHNICIAN, DONAVON R 466.0 BRONCHITIS, ACUTE 02/06/2012 ASHER PRODUCT DEVELOPMENT TECHNICIAN, DONAVON R 784.91 POSTNASAL DRIP 02/06/2012 ASHER PRODUCT DEVELOPMENT TECHNICIAN, DONAVON R 786.2 COUGH 02/06/2012 UDAY APRN, DANA A 466.0 BRONCHITIS, ACUTE 02/06/2012 UDAY PRODUCT DEVELOPMENT TECHNICIAN, DANA A 784.91 POSTNASAL DRIP 02/06/2012 UDAY AGUIAR, DANA A 786.2 COUGH 02/06/2012 WADE DO, SOPHIE K 466.0 BRONCHITIS, ACUTE 02/06/2012 WADE DO, SOPHIE K 784.91 POSTNASAL DRIP 02/06/2012 WADE DO, SOPHIE K 786.2 COUGH 02/06/2012 ASHER PRODUCT DEVELOPMENT TECHNICIAN, DONAVON R 466.0 BRONCHITIS, ACUTE 02/06/2012 ASHER PRODUCT DEVELOPMENT TECHNICIAN, DONAVON R 784.91 POSTNASAL DRIP 02/06/2012 ASHER PRODUCT DEVELOPMENT TECHNICIAN, DONAVON R 786.2 COUGH 02/06/2012 ASHER PRODUCT DEVELOPMENT TECHNICIAN, DONAVON R 466.0 BRONCHITIS, ACUTE 02/06/2012 ASHER PRODUCT DEVELOPMENT TECHNICIAN, DONAVON R 784.91 POSTNASAL DRIP 02/06/2012 ASHER PRODUCT DEVELOPMENT TECHNICIAN, DONAVON R 786.2 COUGH 02/06/2012 ASHER PRODUCT DEVELOPMENT TECHNICIAN, DONAVON R 466.0 BRONCHITIS, ACUTE 02/06/2012 ASHER PRODUCT DEVELOPMENT TECHNICIAN, DONAVON R 784.91 POSTNASAL DRIP 02/06/2012 ASHER PRODUCT DEVELOPMENT TECHNICIAN, DONAVON R 786.2 COUGH 02/13/2012 SOPHIE WADE [...] K 702.11 INFLAMED SEBORRHEIC KERATOSIS 02/13/2012 ASHER PRODUCT DEVELOPMENT TECHNICIAN, DONAVON R 702.11 INFLAMED SEBORRHEIC KERATOSIS 02/13/2012 ASHER PRODUCT DEVELOPMENT TECHNICIAN, DONAVON R 702.11 INFLAMED SEBORRHEIC KERATOSIS 02/13/2012 UDAYHANNAH AGUIAR, DANA A 702.11 INFLAMED SEBORRHEIC KERATOSIS 02/13/2012 SHERI THOMPSON, SOPHIE K 702.11 INFLAMED SEBORRHEIC KERATOSIS 02/13/2012 ASHER PRODUCT DEVELOPMENT TECHNICIAN, DONAVON R 702.11 INFLAMED SEBORRHEIC KERATOSIS 02/13/2012 ASHER PRODUCT DEVELOPMENT TECHNICIAN, DONAVON R 702.11 INFLAMED SEBORRHEIC KERATOSIS 02/13/2012 ASHER PRODUCT DEVELOPMENT TECHNICIAN, DONAVON R 702.11 INFLAMED SEBORRHEIC KERATOSIS 05/27/2012 [...] DO, SOPHIE K 724.3 SCIATICA 05/27/2012 ASHER PRODUCT DEVELOPMENT TECHNICIAN, DONAVON R 530.81 ESOPHAGEAL REFLUX 05/27/2012 ASHER PRODUCT DEVELOPMENT TECHNICIAN, DONAVON R 724.3 SCIATICA 05/27/2012 WADE DO, SOPHIE K 530.81 ESOPHAGEAL REFLUX 05/27/2012 WADE DO, SOPHIE K 724.3 SCIATICA 05/27/2012 ASHER PRODUCT DEVELOPMENT TECHNICIAN, DONAVON R 530.81 ESOPHAGEAL REFLUX 05/27/2012 ASHER PRODUCT DEVELOPMENT TECHNICIAN, DONAVON R 724.3 SCIATICA 05/27/2012 ASHER PRODUCT DEVELOPMENT TECHNICIAN, DONAVON R 530.81 ESOPHAGEAL REFLUX 05/27/2012 ASHER PRODUCT DEVELOPMENT TECHNICIAN, DONAVON R 724.3 SCIATICA 05/27/2012 UDAY PRODUCT DEVELOPMENT TECHNICIAN, DANA A 530.81 ESOPHAGEAL REFLUX 05/27/2012 UDAY PRODUCT DEVELOPMENT TECHNICIAN, DANA A 724.3 SCIATICA 05/27/2012 WADE DO, SOPHIE K 530.81 ESOPHAGEAL REFLUX 05/27/2012 WADE DO, SOPHIE K 724.3 SCIATICA 05/27/2012 ASHER PRODUCT DEVELOPMENT TECHNICIAN, DONAVON R 530.81 ESOPHAGEAL REFLUX 05/27/2012 ASHER PRODUCT DEVELOPMENT TECHNICIAN, DONAVON R 724.3 SCIATICA 05/27/2012 ASHER PRODUCT DEVELOPMENT TECHNICIAN, DONAVON R 530.81 ESOPHAGEAL REFLUX 05/27/2012 ASHER PRODUCT DEVELOPMENT TECHNICIAN, DONAVON R 724.3 SCIATICA 05/27/2012 ASHER PRODUCT DEVELOPMENT TECHNICIAN, DONAVON R 530.81 ESOPHAGEAL REFLUX 05/27/2012 ASHER PRODUCT DEVELOPMENT TECHNICIAN, DONAVON R 724.3 SCIATICA 06/16/2012 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 06/16/2012 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 06/16/2012 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 06/16/2012 WADE DO, SOPHIE K 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 06/16/2012 PLACIDO AGUIAR DONG 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 06/16/2012 PLACIDO AGUIAR DONG 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 06/16/2012 ASHER PRODUCT DEVELOPMENT TECHNICIAN, DONAVON 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 06/16/2012 ANMOL FREY APRN 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 06/16/2012 EDEL MULLINS, LEILANI 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 06/16/2012 SOPHIE WADE DO K 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 06/16/2012 ASHER PRODUCT DEVELOPMENT TECHNICIAN, DONAVON 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 06/16/2012 LON WADE DOA K 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 06/16/2012 ASHER PRODUCT DEVELOPMENT TECHNICIAN, DONAVON 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 06/16/2012 ASHER PRODUCT DEVELOPMENT TECHNICIAN, DONAVON 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 06/16/2012 DANA FREY APRN A 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 06/16/2012 SOPHIE WADE DO K 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 06/16/2012 ASHER PRODUCT DEVELOPMENT TECHNICIAN, DONAVON 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 06/16/2012 ASHER PRODUCT DEVELOPMENT TECHNICIAN, DONAVON 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 06/16/2012 ASHER PRODUCT DEVELOPMENT TECHNICIAN, DONAVON 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 07/23/2012 726.5 [...] 726.5 ENTHESOPATHY OF HIP REGION 07/23/2012 ASHER PRODUCT DEVELOPMENT TECHNICIAN, DONAVON R 726.5 ENTHESOPATHY OF HIP REGION 07/23/2012 ASHER PRODUCT DEVELOPMENT TECHNICIAN, DONAVON R 726.5 ENTHESOPATHY OF HIP REGION 07/23/2012 ASHER PRODUCT DEVELOPMENT TECHNICIAN, DONAVON R 726.5 ENTHESOPATHY OF HIP REGION 08/29/2012 558.9 GASTROENTERITIS NONINFECTIOUS 08/29/2012 787.91 DIARRHEA 08/29/2012 WADE DO SOPHIE K 558.9 GASTROENTERITIS NONINFECTIOUS 08/29/2012 WADE DO, SOPHIE K 787.91 DIARRHEA 08/29/2012 PLACIDO PRODUCT DEVELOPMENT TECHNICIAN, DONG R 558.9 GASTROENTERITIS NONINFECTIOUS 08/29/2012 PLACIDO [...] DO SOPHIE K 787.91 DIARRHEA 08/29/2012 ASHER PRODUCT DEVELOPMENT TECHNICIAN, DONAVON R 558.9 GASTROENTERITIS NONINFECTIOUS 08/29/2012 ASHER PRODUCT DEVELOPMENT TECHNICIAN, DONAVON R 787.91 DIARRHEA 08/29/2012 WADE DO, SOPHIE K 558.9 GASTROENTERITIS NONINFECTIOUS 08/29/2012 WADE DO, SOPHIE K 787.91 DIARRHEA 08/29/2012 ASHER PRODUCT DEVELOPMENT TECHNICIAN, DONAVON R 558.9 GASTROENTERITIS NONINFECTIOUS 08/29/2012 ASHER PRODUCT DEVELOPMENT TECHNICIAN, DONAVON R 787.91 DIARRHEA 08/29/2012 ASHER PRODUCT DEVELOPMENT TECHNICIAN, DONAVON R 558.9 GASTROENTERITIS NONINFECTIOUS 08/29/2012 ASHER PRODUCT DEVELOPMENT TECHNICIAN, DONAVON R 787.91 DIARRHEA 08/29/2012 UDAY PRODUCT DEVELOPMENT TECHNICIAN, DANA A 558.9 GASTROENTERITIS NONINFECTIOUS 08/29/2012 UDAY PRODUCT DEVELOPMENT TECHNICIAN, DANA A 787.91 DIARRHEA 08/29/2012 WADE DO, SOPHIE K 558.9 GASTROENTERITIS NONINFECTIOUS 08/29/2012 WADE DO, SOPHIE K 787.91 DIARRHEA 08/29/2012 ASHER PRODUCT DEVELOPMENT TECHNICIAN, DONAVON R 558.9 GASTROENTERITIS NONINFECTIOUS 08/29/2012 ASHER PRODUCT DEVELOPMENT TECHNICIAN, DONAVON R 787.91 DIARRHEA 08/29/2012 ASHER PRODUCT DEVELOPMENT TECHNICIAN, DONAVON R 558.9 GASTROENTERITIS NONINFECTIOUS 08/29/2012 ASHER PRODUCT DEVELOPMENT TECHNICIAN, DONAVON R 787.91 DIARRHEA 08/29/2012 ASHER PRODUCT DEVELOPMENT TECHNICIAN, DONAVON R 558.9 GASTROENTERITIS NONINFECTIOUS 08/29/2012 ASHER PRODUCT DEVELOPMENT TECHNICIAN, DONAVON R 787.91 DIARRHEA 10/14/2012 SHERI THOMPSON, [...] MD 780.52 INSOMNIA UNSPECIFIED 12/11/2012 WADE DO, SOPHEI K 692.9 CONTACT DERMATITIS AND OTHER ECZEMA [...] AGUIAR DONAVON R 780.52 INSOMNIA UNSPECIFIED 12/11/2012 DANA FRYE APRN A 692.9 CONTACT DERMATITIS AND OTHER ECZEMA UNSPECIFIED CAUSE 12/11/2012 UDAY AGUIAR, DANA A 780.52 INSOMNIA UNSPECIFIED 12/11/2012 SOPHIE WADE DO K 692.9 CONTACT DERMATITIS AND OTHER ECZEMA UNSPECIFIED CAUSE 12/11/2012 SOPHIE WADE DO K 780.52 INSOMNIA UNSPECIFIED 12/11/2012 ASHER PRODUCT DEVELOPMENT TECHNICIAN, DONAVON R 692.9 CONTACT DERMATITIS AND OTHER ECZEMA UNSPECIFIED CAUSE 12/11/2012 ASHER PRODUCT DEVELOPMENT TECHNICIAN, DONAVON R 780.52 INSOMNIA UNSPECIFIED 12/11/2012 ASHER PRODUCT DEVELOPMENT TECHNICIAN, DONAVON R 692.9 CONTACT DERMATITIS AND OTHER ECZEMA UNSPECIFIED CAUSE 12/11/2012 ASHER PRODUCT DEVELOPMENT TECHNICIAN, DONAVON R 780.52 INSOMNIA UNSPECIFIED 12/11/2012 ASHER [...] MULLINS, LEILANI 462 ACUTE PHARYNGITIS 02/13/2013 SOPHIE WADE DO 462 ACUTE PHARYNGITIS 02/13/2013 ASHER SANTACRUZN, [...] DONAVON R 462 ACUTE PHARYNGITIS 03/04/2013 CUMMINS PRODUCT DEVELOPMENT TECHNICIAN, DONG R 461.9 SINUSITIS ACUTE 03/04/2013 ASHER PRODUCT DEVELOPMENT TECHNICIAN, DONAVON R 461.9 SINUSITIS ACUTE 03/04/2013 ANMOL FREY APRN S 461.9 SINUSITIS ACUTE 03/04/2013 LEILANI HOLLINGSWORTH MD 461.9 SINUSITIS ACUTE 03/04/2013 SHERI THOMPSON, SOPHIE K 461.9 SINUSITIS ACUTE 03/04/2013 ASHER PRODUCT DEVELOPMENT TECHNICIAN, DONAVON R 461.9 SINUSITIS ACUTE 03/04/2013 SHERI THOMPSON, SOPHIE K 461.9 SINUSITIS ACUTE 03/04/2013 ASHER PRODUCT DEVELOPMENT TECHNICIAN, DONAVON R 461.9 SINUSITIS ACUTE 03/04/2013 ASHER PRODUCT DEVELOPMENT TECHNICIAN, DONAVON R 461.9 SINUSITIS ACUTE 03/04/2013 UDAY AGUIAR, DANA A 461.9 SINUSITIS ACUTE 03/04/2013 SHERI THOMPSON, SOPHIE K 461.9 SINUSITIS ACUTE 03/04/2013 ASHER PRODUCT DEVELOPMENT TECHNICIAN, DONAVON R 461.9 SINUSITIS ACUTE 03/04/2013 ASHER PRODUCT DEVELOPMENT TECHNICIAN, DONAVON R 461.9 SINUSITIS ACUTE 03/04/2013 ASHER PRODUCT DEVELOPMENT TECHNICIAN, DONAVON R 461.9 SINUSITIS ACUTE 05/11/2013 ASHER PRODUCT DEVELOPMENT TECHNICIAN, DONAVON R 719.47 PAIN- ANKLE 05/11/2013 ANMOL FREY APRN S 719.47 PAIN- ANKLE 05/11/2013 LEILANI HOLLINGSWORTH MD 719.47 PAIN- ANKLE 05/11/2013 SOPHIE WADE DO K 719.47 PAIN- ANKLE 05/11/2013 ASHER SANTACRUZN, DONAVON R 719.47 PAIN- ANKLE 05/11/2013 WADE LON THOMPSONA K 719.47 PAIN- ANKLE 05/11/2013 ASHER PRODUCT DEVELOPMENT TECHNICIAN, DONAVON R 719.47 PAIN- ANKLE 05/11/2013 ASHER PRODUCT DEVELOPMENT TECHNICIAN, DONAVON R 719.47 PAIN- ANKLE 05/11/2013 DANA FRYE APRN A 719.47 PAIN- ANKLE 05/11/2013 WADE LON THOMPSONA K 719.47 PAIN- ANKLE 05/11/2013 ASHER PRODUCT DEVELOPMENT TECHNICIAN, DONAVON R 719.47 PAIN- ANKLE 05/11/2013 ASHER SANTACRUZN, DONAVON R 719.47 PAIN- ANKLE 05/11/2013 ASHER PRODUCT DEVELOPMENT TECHNICIAN, DONAVON R 719.47 PAIN- ANKLE 05/21/2013 ASHER [...] AGUIAR DONAVON R 723.1 CERVICALGIA 09/14/2013 ASHER PRODUCT DEVELOPMENT TECHNICIAN, DONAVON R 789.00 ABDOMINAL PAIN UNSPECIFIED SITE 09/14/2013 ASHER PRODUCT DEVELOPMENT TECHNICIAN, DONAVON R 723.1 CERVICALGIA 09/14/2013 ASHER PRODUCT DEVELOPMENT TECHNICIAN, DONAVON R 789.00 ABDOMINAL PAIN UNSPECIFIED SITE 09/14/2013 UDAY PRODUCT DEVELOPMENT TECHNICIAN, DANA A 723.1 CERVICALGIA 09/14/2013 UDAY PRODUCT DEVELOPMENT TECHNICIAN, DANA A 789.00 ABDOMINAL PAIN UNSPECIFIED SITE 09/14/2013 SHERI THOMPSON SOPHIE K 723.1 CERVICALGIA 09/14/2013 SHERI DO SOPHIE K 789.00 ABDOMINAL PAIN UNSPECIFIED SITE 09/14/2013 ASHER PRODUCT DEVELOPMENT TECHNICIAN, DONAVON R 723.1 CERVICALGIA 09/14/2013 ASHER PRODUCT DEVELOPMENT TECHNICIAN, DONAVON R 789.00 ABDOMINAL PAIN UNSPECIFIED SITE 09/14/2013 ASHER PRODUCT DEVELOPMENT TECHNICIAN, DONAVON R 723.1 CERVICALGIA 09/14/2013 ASHER PRODUCT DEVELOPMENT TECHNICIAN, DONAVON R 789.00 ABDOMINAL PAIN UNSPECIFIED SITE 09/14/2013 ASHER SANTACRUZN, DONAVON R 723.1 CERVICALGIA 09/14/2013 ASHER PRODUCT DEVELOPMENT TECHNICIAN, DONAVON R 789.00 ABDOMINAL PAIN UNSPECIFIED SITE [...] K 586 RENAL FAILURE UNSPECIFIED 11/03/2013 ASHER PRODUCT DEVELOPMENT TECHNICIAN, DONAVON R 586 RENAL FAILURE UNSPECIFIED 11/03/2013 ASHER PRODUCT DEVELOPMENT TECHNICIAN, DONAVON R 586 RENAL FAILURE UNSPECIFIED 11/03/2013 UDAY PRODUCT DEVELOPMENT TECHNICIAN, DANA A 586 RENAL FAILURE UNSPECIFIED 11/03/2013 WADE DO, SOPHIE K 586 RENAL FAILURE UNSPECIFIED 11/03/2013 ASHER PRODUCT DEVELOPMENT TECHNICIAN, DONAVON R 586 RENAL FAILURE UNSPECIFIED 11/03/2013 ASHER PRODUCT DEVELOPMENT TECHNICIAN, DONAVON R 586 RENAL FAILURE UNSPECIFIED 11/03/2013 ASHER PRODUCT DEVELOPMENT TECHNICIAN, DONAVON R 586 RENAL FAILURE UNSPECIFIED 12/15/2013 ASHER PRODUCT DEVELOPMENT TECHNICIAN, DONAVON R V76.51 COLON CANCER SCREENING 12/15/2013 UDAY AGUIAR, DANA A V76.51 COLON CANCER SCREENING 12/15/2013 LON WADE DOA K V76.51 COLON CANCER SCREENING 12/15/2013 ASHER PRODUCT DEVELOPMENT TECHNICIAN, DONAVON R V76.51 COLON CANCER SCREENING 12/15/2013 ASHER PRODUCT DEVELOPMENT TECHNICIAN, DONAVON R V76.51 COLON CANCER SCREENING 12/15/2013 ASHER PRODUCT DEVELOPMENT TECHNICIAN, DONAVON R V76.51 COLON CANCER SCREENING 01/07/2014 UDAY AGUIAR, DANA A V04.81 FLU SHOT 01/07/2014 LON WADE DOA K V04.81 FLU SHOT 01/07/2014 ASHER PRODUCT DEVELOPMENT TECHNICIAN, DONAVON R V04.81 FLU SHOT 01/07/2014 ASHER PRODUCT DEVELOPMENT TECHNICIAN, DONAVON R V04.81 FLU SHOT 01/07/2014 ASHER SANTACRUZN, DONAVON R V04.81 FLU SHOT 01/21/2014 DANA FRYE APRN A 625.9 PELVIC PAIN 01/21/2014 DANA FRYE APRN A V72.31 SHREDDED FILLER CUTTER OPERATOR EXAM, ROUTINE 01/21/2014 SHERRY FRYE APRNIDI A V76.10 BREAST CANCER SCREENING 01/21/2014 UDAY AGUIAR DANA A V82.81 SPECIAL SCREENING FOR OSTEOPOROSIS 01/21/2014 SHERI THOMPSON SOPHIE K 625.9 PELVIC PAIN 01/21/2014 WADE DO SOPHIE K V72.31 SHREDDED FILLER CUTTER OPERATOR EXAM, ROUTINE 01/21/2014 LON WADE DOA K V76.10 BREAST CANCER SCREENING 01/21/2014 SHERI THOMPSON SOPHIE K V82.81 SPECIAL SCREENING FOR OSTEOPOROSIS 01/21/2014 ASHER PRODUCT DEVELOPMENT TECHNICIAN, DONAVON R 625.9 PELVIC PAIN 01/21/2014 ASHER PRODUCT DEVELOPMENT TECHNICIAN, DONAVON R V72.31 SHREDDED FILLER CUTTER OPERATOR EXAM, ROUTINE 01/21/2014 ASHER PRODUCT DEVELOPMENT TECHNICIAN, DONAVON R V76.10 BREAST CANCER SCREENING 01/21/2014 ASHER PRODUCT DEVELOPMENT TECHNICIAN, DONAVON R V82.81 SPECIAL SCREENING FOR OSTEOPOROSIS 01/21/2014 ASHER PRODUCT DEVELOPMENT TECHNICIAN, DONAVON R 625.9 PELVIC PAIN 01/21/2014 ASHER PRODUCT DEVELOPMENT TECHNICIAN, DONAVON R V72.31 SHREDDED FILLER CUTTER OPERATOR EXAM, ROUTINE 01/21/2014 ASHER PRODUCT DEVELOPMENT TECHNICIAN, DONAVON R V76.10 BREAST CANCER SCREENING 01/21/2014 ASHER PRODUCT DEVELOPMENT TECHNICIAN, DONAVON R V82.81 SPECIAL SCREENING FOR OSTEOPOROSIS 01/21/2014 ASHER PRODUCT DEVELOPMENT TECHNICIAN, DONAVON R 625.9 PELVIC PAIN 01/21/2014 ASHER PRODUCT DEVELOPMENT TECHNICIAN, DONAVON R V72.31 SHREDDED FILLER CUTTER OPERATOR EXAM, ROUTINE 01/21/2014 ASHER PRODUCT DEVELOPMENT TECHNICIAN, DONAVON R V76.10 BREAST CANCER SCREENING 01/21/2014 ASHER PRODUCT DEVELOPMENT TECHNICIAN, DONAVON R V82.81 SPECIAL SCREENING FOR OSTEOPOROSIS 02/02/2014 RICCARDO RUIZ DO Ot 530.10 ESOPHAGITIS NOS 02/02/2014 RICCARDO RUIZ DO Ot 535.50 UNSP GASTRITIS GASTRODUODENITIS W/O ME 02/02/2014 RICCARDO RUIZ DO Ot 562.10 DIVERTICULOSIS COLON (W/O MENT OF HEMORR 02/23/2014 RICCARDO RUIZ DO Ot V72.84 02/23/2014 DONAVON STERLING R PRODUCT DEVELOPMENT TECHNICIAN Ot 789.00 02/23/2014 ASHER DONAVON R PRODUCT DEVELOPMENT TECHNICIAN Ot 789.00 02/24/2014 ASHER DONAVON R PRODUCT DEVELOPMENT TECHNICIAN Ot 562.10 02/24/2014 RICCARDO RUIZ DO Ot V72.84 02/24/2014 ASHER DONAVON R PRODUCT DEVELOPMENT TECHNICIAN Ot 789.00 02/24/2014 ASHER DONAVON R PRODUCT DEVELOPMENT TECHNICIAN Ot 789.00 02/24/2014 ASHER DONAVON R PRODUCT DEVELOPMENT TECHNICIAN Ot 562.10 03/09/2014 ASHER DONAVON R PRODUCT DEVELOPMENT TECHNICIAN Ot 562.10 03/09/2014 ASHER DONAVON R PRODUCT DEVELOPMENT TECHNICIAN Ot 789.00 03/29/2014 DANA FRYE PRODUCT DEVELOPMENT TECHNICIAN Ot 733.90 03/29/2014 UDAY DANA A PRODUCT DEVELOPMENT TECHNICIAN Ot V76.12 06/16/2014 ASHER AGUIAR, DONAVON R [...] BY OBJ/PERSON NEC 01/14/2015 DONAVON STERLING R PRODUCT DEVELOPMENT TECHNICIAN Ot 562.10 01/14/2015 OGUNQUIT RICCARDO THOMPSON Ot V72.84 01/14/2015 DONAVON STERLING R PRODUCT DEVELOPMENT TECHNICIAN Ot 789.00 01/14/2015 SHERRY FRYEIDI A PRODUCT DEVELOPMENT TECHNICIAN Ot 733.90 01/14/2015 SHERRY FRYEIDI A PRODUCT DEVELOPMENT TECHNICIAN Ot V76.12 01/28/2015 DONAVON STERLING R PRODUCT DEVELOPMENT TECHNICIAN Ot 562.10 01/28/2015 OGUNQUIT RICCARDO THOMPSON Ot V72.84 01/28/2015 NEWTON STERLINGINA R PRODUCT DEVELOPMENT TECHNICIAN Ot 789.00 01/28/2015 UDAY DANA A PRODUCT DEVELOPMENT TECHNICIAN Ot 733.90 01/28/2015 UDAY DANA A PRODUCT DEVELOPMENT TECHNICIAN Ot V76.12 01/28/2015 NEWTON STERLINGINA R PRODUCT DEVELOPMENT TECHNICIAN Ot 562.10 01/28/2015 OGUNQUIT RICCARDO THOMPSON Ot V72.84 01/28/2015 NEWTON STERLINGINA R PRODUCT DEVELOPMENT TECHNICIAN Ot 789.00 01/28/2015 UDAY DANA A PRODUCT DEVELOPMENT TECHNICIAN Ot 733.90 01/28/2015 UDAY DANA A PRODUCT DEVELOPMENT TECHNICIAN Ot V76.12 03/31/2015 UDAY DANA A PRODUCT DEVELOPMENT TECHNICIAN Ot M85.80 03/31/2015 UDAY, DANA A PRODUCT DEVELOPMENT TECHNICIAN Ot Z12.31 03/31/2015 UDAY DANA A PRODUCT DEVELOPMENT TECHNICIAN Ot Z13.820 05/10/2015 SIMÓN MULLINS FAC, PHILLIP COTAP CCDS Ot E78.0 PURE HYPERCHOLESTEROLEMIA 05/10/2015 SIMÓN MULLINS FACC, PHILLIP FACP CCDS Ot I25.10 ATHSCL HEART DISEASE OF [place] CORONARY 05/10/2015 SIMÓN MULLINS FACC, PHILLIP FACP CCDS Ot I25.2 OLD MYOCARDIAL INFARCTION 05/10/2015 SIMÓN MULLINS FACC, ALI FACP CCDS Ot 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 05/10/2015 SIMÓN MULLINS FACC, ALI FACP CCDS Ot R07.89 OTHER CHEST PAIN 05/10/2015 SIMÓN MULLINS FACC, ALI FACP CCDS Ot R73.09 OTHER ABNORMAL GLUCOSE 05/10/2015 SIMÓN MULLINS FACC, [facility] FACP CCDS Ot Z79.899 OTHER CARE HOME (CURRENT) DRUG THERAPY 06/02/2015 TEENA DELATORRE PRODUCT DEVELOPMENT TECHNICIAN Ot M54.6 06/02/2015 TEENA DELATORRE PRODUCT DEVELOPMENT TECHNICIAN Ot R07.81 06/02/2015 TEENA DELATORRE PRODUCT DEVELOPMENT TECHNICIAN Ot W19.XXXA 06/02/2015 TEENA DELATORRE PRODUCT DEVELOPMENT TECHNICIAN Ot Y99.8 06/07/2015 TEENA DELTAORRE PRODUCT DEVELOPMENT TECHNICIAN Ot M54.6 06/07/2015 TEENA DELATORRE PRODUCT DEVELOPMENT TECHNICIAN Ot R07.81 06/07/2015 TEENA DELATORRE PRODUCT DEVELOPMENT TECHNICIAN Ot W19.XXXA 06/07/2015 TEENA DELATORRE PRODUCT DEVELOPMENT TECHNICIAN Ot Y99.8 06/21/2015 TEENA DELATORRE PRODUCT DEVELOPMENT TECHNICIAN Ot M54.6 06/21/2015 TEENA DELATORRE PRODUCT DEVELOPMENT TECHNICIAN Ot R07.81 06/21/2015 TEENA DELATORRE PRODUCT DEVELOPMENT TECHNICIAN Ot W19.XXXA 06/21/2015 TEENA DELATORRE PRODUCT DEVELOPMENT TECHNICIAN Ot Y99.8 07/20/2015 TEENA DELATORRE PRODUCT DEVELOPMENT TECHNICIAN Ot M54.6 PAIN IN THORACIC SPINE 07/20/2015 TEENA DELATORRE PRODUCT DEVELOPMENT TECHNICIAN Ot R07.81 PLEURODYNIA 07/20/2015 TEENA DELATORRE PRODUCT DEVELOPMENT TECHNICIAN Ot W19.XXXA UNSPECIFIED FALL, INITIAL ENCOUNTER 07/20/2015 TEENA DELATORRE PRODUCT DEVELOPMENT TECHNICIAN Ot Y99.8 OTHER EXTERNAL CAUSE STATUS 07/20/2015 TEENA DELATORRE PRODUCT DEVELOPMENT TECHNICIAN Ot M54.6 PAIN IN THORACIC SPINE 07/20/2015 TEENA DELATORRE PRODUCT DEVELOPMENT TECHNICIAN Ot R07.81 PLEURODYNIA 07/20/2015 TEENA DELATORRE PRODUCT DEVELOPMENT TECHNICIAN Ot W19.XXXA UNSPECIFIED FALL, INITIAL ENCOUNTER 07/20/2015 TEENA DELATORRE PRODUCT DEVELOPMENT TECHNICIAN Ot Y99.8 OTHER EXTERNAL CAUSE STATUS 09/12/2015 RAHEEM MARINO PROMOTIONS EXECUTIVE Ot G43.909 MIGRAINE, UNSP, NOT INTRACTABLE, WITHOUT 09/12/2015 RAHEEM MARINO PROMOTIONS EXECUTIVE Ot R22.0 LOCALIZED SWELLING, MASS AND LUMP, HEAD 09/12/2015 RAHEEM MARINO [facility] Ot Z01.812 ENCOUNTER FOR PREPROCEDURAL LABORATORY E [...] SALEH MD Ot Y92.[address] IN [facility] NON-INSTITUT (PRIVATE 01/09/2016 JORDON SALEH MD Ot Y93.89 ACTIVITY, OTHER SPECIFIED 01/09/2016 JORDON SALEH MD, Ot Y99.8 OTHER EXTERNAL CAUSE STATUS 01/09/2016 JORDON SALEH MD, Ot Z79.899 OTHER CARE HOME (CURRENT) DRUG THERAPY 01/10/2016 JORDON SALEH MD, [...] SALEH MD Ot Y92.[address] IN [facility] NON-INSTITUT (PRIVATE 01/10/2016 JORDON SALEH MD, Ot Y93.89 ACTIVITY, OTHER SPECIFIED 01/10/2016 JORDON SALEH MD, Ot Y99.8 OTHER EXTERNAL CAUSE STATUS 01/10/2016 JORDON SALEH MD, Ot Z79.899 OTHER GLOBAL COMPENSATION MANAGER (CURRENT) DRUG THERAPY 03/12/2016 DONAVON STERLING PRODUCT DEVELOPMENT TECHNICIAN Ot 562.10 DIVERTICULOSIS COLON (W/O MENT OF HEMORR 03/12/2016 RICCARDO RUIZ DO Ot V72.84 EXAM PRE-OPERATIVE NOS 03/12/2016 DONAVON STERLING PRODUCT DEVELOPMENT TECHNICIAN Ot 789.00 ABDOMINAL PAIN, UNSPECIFIED SITE 03/12/2016 DANA FRYE PRODUCT DEVELOPMENT TECHNICIAN Ot 733.90 BONE CARTILAGE DIS NOS 03/12/2016 DANA FRYE PRODUCT DEVELOPMENT TECHNICIAN Ot V76.12 OTH SCREEN MAMMO-MALIGN NEOPLASM OF SONIA 03/12/2016 DANA FRYE PRODUCT DEVELOPMENT TECHNICIAN Ot M85.80 OTH DISRD OF BONE DENSITY AND STRUCTURE, 03/12/2016 DANA FRYE PRODUCT DEVELOPMENT TECHNICIAN Ot Z12.31 ENCNTR SCREEN MAMMOGRAM FOR MALIGNANT NE 03/12/2016 DANA FRYE PRODUCT DEVELOPMENT TECHNICIAN Ot Z13.820 ENCOUNTER FOR SCREENING FOR OSTEOPOROSIS 03/12/2016 TEENA DELATORRE PRODUCT DEVELOPMENT TECHNICIAN Ot M54.6 PAIN IN THORACIC SPINE 03/12/2016 TEENA DELATORRE PRODUCT DEVELOPMENT TECHNICIAN Ot R07.81 PLEURODYNIA 03/12/2016 TEENA DELATORRE PRODUCT DEVELOPMENT TECHNICIAN Ot W19.XXXA UNSPECIFIED FALL, INITIAL ENCOUNTER 03/12/2016 TEENA DELATORRE PRODUCT DEVELOPMENT TECHNICIAN Ot Y99.8 OTHER EXTERNAL CAUSE STATUS 03/12/2016 RAHEEM MARINOP Ot G43.909 MIGRAINE, UNSP, NOT INTRACTABLE, WITHOUT 03/12/2016 RAHEEM MARINOP Ot R22.0 LOCALIZED SWELLING, MASS AND LUMP, HEAD 03/12/2016 RAHEEM MARINOP Ot Z01.812 ENCOUNTER FOR PREPROCEDURAL LABORATORY E 03/12/2016 RAHEEM MARINOP Ot G43.909 MIGRAINE, UNSP, NOT INTRACTABLE, WITHOUT 03/12/2016 RAHEEM MARINO PROMOTIONS EXECUTIVE Ot R22.0 LOCALIZED SWELLING, MASS AND LUMP, HEAD 03/12/2016 RAHEEM MARINO PROMOTIONS EXECUTIVE Ot Z01.812 ENCOUNTER FOR PREPROCEDURAL LABORATORY E 03/13/2016 JANES PECK PRODUCT DEVELOPMENT TECHNICIAN Ot Z12.31 ENCNTR SCREEN MAMMOGRAM FOR MALIGNANT NE 03/14/2016 JANES PECK PRODUCT DEVELOPMENT TECHNICIAN Ot Z12.31 ENCNTR SCREEN MAMMOGRAM FOR MALIGNANT NE 03/14/2016 JANES PECK PRODUCT DEVELOPMENT TECHNICIAN Ot Z12.31 ENCNTR SCREEN MAMMOGRAM FOR MALIGNANT [...] UNSP, NOT INTRACTABLE, WITHOUT 04/10/2016 RAHEEM MARINO PROMOTIONS EXECUTIVE Ot R22.0 LOCALIZED SWELLING, MASS AND LUMP, HEAD 04/10/2016 RAHEEM MARINO Ot Z01.812 ENCOUNTER FOR PREPROCEDURAL LABORATORY E 05/21/2017 JANES PECK APRN Ot Z12.31 ENCNTR SCREEN MAMMOGRAM FOR MALIGNANT NE 05/21/2017 DONAVON STERLING PRODUCT DEVELOPMENT TECHNICIAN Ot 562.10 DIVERTICULOSIS COLON (W/O MENT OF HEMORR 05/21/2017 RICCARDO RUIZ DO Ot V72.84 EXAM PRE-OPERATIVE NOS 05/21/2017 DONAVON STERLING PRODUCT DEVELOPMENT TECHNICIAN Ot 789.00 ABDOMINAL PAIN, UNSPECIFIED SITE 05/21/2017 DANA FRYE PRODUCT DEVELOPMENT TECHNICIAN Ot 733.90 BONE CARTILAGE DIS NOS 05/21/2017 DANA FRYE APRN Ot V76.12 OTH SCREEN MAMMO-MALIGN NEOPLASM OF SONIA 05/21/2017 DANA FRYE APRN Ot M85.80 OTH DISRD OF BONE DENSITY AND STRUCTURE, 05/21/2017 DANA FRYE PRODUCT DEVELOPMENT TECHNICIAN Ot Z12.31 ENCNTR SCREEN MAMMOGRAM FOR MALIGNANT NE 05/21/2017 DANA FRYE PRODUCT DEVELOPMENT TECHNICIAN Ot Z13.820 ENCOUNTER FOR SCREENING FOR OSTEOPOROSIS 05/21/2017 TEENA DELATORRE PRODUCT DEVELOPMENT TECHNICIAN Ot M54.6 PAIN IN THORACIC SPINE 05/21/2017 TEENA DELATORRE PRODUCT DEVELOPMENT TECHNICIAN Ot R07.81 PLEURODYNIA 05/21/2017 TEENA DELATORRE PRODUCT DEVELOPMENT TECHNICIAN Ot W19.XXXA UNSPECIFIED FALL, INITIAL ENCOUNTER 05/21/2017 TEENA DELATORRE PRODUCT DEVELOPMENT TECHNICIAN Ot Y99.8 OTHER EXTERNAL CAUSE STATUS 05/21/2017 RAHEEM MARINO Ot G43.909 MIGRAINE, UNSP, NOT INTRACTABLE, WITHOUT 05/21/2017 RAHEEM MARINOP Ot R22.0 LOCALIZED SWELLING, MASS AND LUMP, HEAD 05/21/2017 RAHEEM MARINO Ot Z01.812 ENCOUNTER FOR PREPROCEDURAL LABORATORY E 05/21/2017 JANES PECK PRODUCT DEVELOPMENT TECHNICIAN Ot Z12.31 ENCNTR SCREEN MAMMOGRAM FOR MALIGNANT NE 05/21/2017 JANES PECK PRODUCT DEVELOPMENT TECHNICIAN Ot Z12.31 ENCNTR SCREEN MAMMOGRAM FOR MALIGNANT NE 05/22/2017 JANES PECK PRODUCT DEVELOPMENT TECHNICIAN Ot Z12.31 ENCNTR SCREEN MAMMOGRAM FOR MALIGNANT NE 06/03/2017 JANES PECK PRODUCT DEVELOPMENT TECHNICIAN Ot Z12.31 ENCNTR SCREEN MAMMOGRAM FOR MALIGNANT NE 06/05/2017 JANES PECK APRN Ot Z12.31 ENCNTR SCREEN MAMMOGRAM FOR MALIGNANT NE 06/25/2017 JANES PECK APRN Ot Z12.31 ENCNTR SCREEN MAMMOGRAM FOR MALIGNANT NE 09/30/2017 JANES PECK APRN Ot T84.89XA OTH COMP OF INTERNAL ORTHOPEDIC PROSTH D 09/30/2017 JANES PECK PRODUCT DEVELOPMENT TECHNICIAN Ot T84.89XA OTH COMP OF INTERNAL ORTHOPEDIC PROSTH D 09/30/2017 JANES PECK APRN Ot T84.84XA PAIN DUE TO INTERNAL ORTHOPEDIC PROSTH D Procedures Code [place] [address] UA LONG DIP 01/14/2012 96153 XRAY CHEST 2 VIEW 02/06/2012 14150 BIOPSY SKIN LESION (SINGLE) 02/13/2012 91729 SHAVE SKIN LESION 0.6-1.0 cm 02/13/201222975 TRIGGER POINT INJ/1-2 MUS 05/27/2012 NICKY SUE 05/27/2012 70055 JOINT INJECTION- LARGE JOINT (SPECIFY MEDCIN DESCRIPTION) 07/23/2012 14613 XRAY HIP RIGHT UNILATERAL MIN 2 VIEWS 07/23/2012 71053 STOOL FOR POLYS & LEUKOCYTES 09/01/2012 90586 CLOSTRIDIUM (C-DIFF) 09/02/2012 61743 CULTURE STOOL 09/02/2012 70565 STOOL FOR O & P 09/02/2012 40191 STREP A (IN-HOUSE) 02/13/2013 63834 XRAY ANKLE R COMP MIN, 3 VIEWS 05/11/2013 ORTHOPEDI MARTINE DIMITRI 05/21/2013 88694 UA LONG DIP 09/26/2013 05408 ROUTINE VENIPUNCTURE 09/28/2013 54961 CMP 09/28/2013 57566 CBC 09/28/2013 28669 SED/ESR RATE RML 09/28/2013 50806 CULTURE URINE 09/29/2013 17534 ROUTINE VENIPUNCTURE 10/30/2013 56003 CMP 10/30/2013 0665908 GFR CALC (RESULT ONLY) 10/30/2013 23806 CMP 10/30/[address] ABDOMEN & PELVIS W/ & W/ O CONTRAST 11/12/2013 GENERAL S RICCARDO RUIZ 11/12/2013 60943 UA W/ CULTURE IF INDICATED 11/12/2013 28315 ROUTINE VENIPUNCTURE 01/07/2014 87332 UA W/ CULTURE IF INDICATED 01/07/2014 G0008 FLU ADMINISTRATION ( MEDICARE ONLY) 01/07/2014 58442 CBC 01/07/2014 71492 CMP 01/07/2014 5716156 GFR CALC (RESULT ONLY) 01/07/2014 33479 US PELVIC COMPL (REFLEX CPT - 12173) 01/12/2014 31446 MAMMOGRAM, SCREENING 01/21/2014 30858 BONE DENSITY, DEXA 01/21/2014 46128 BONE MINERAL DENSITY, HEEL US (IN HOUSE) 01/21/2014 47737 XRAY PELVIS 1 OR 2 VIEWS 02/16/2014 [...] 11:40 Hemoglobin A1c 6.5 % 4.8-5.6 Thyroid Duchesne Profile - 07/18/16 11:40 TSH 2.540 uIU/mL 0.450-4.500 TISSUE, 4 SPECIMENS - 05/13/17 16:01 A SOURCE NRG A GROSS DESCRIPTION NRG A DIAGNOSIS NRG CULTURE, URINE - 08/23/17 16:43 CULTURE, URINE, ROUTINE SEE NOTE NRG CULTURE, URINE - 08/27/17 11:26 CULTURE, URINE, ROUTINE SEE NOTE NRG CULTURE, GENITAL - 08/27/17 11:26 CULTURE, GENITAL SEE NOTE NRG [id number] - 09/27/17 10:07 Serum or plasma urea nitrogen measurement (mass/volume) 13 mg/dL 7-18 Serum or plasma creatinine measurement (mass/volume) 0.86 mg/dL 0.60-1.30 Serum or plasma urea nitrogen/creatinine mass ratio 15 NRG Serum or plasma creatinine measurement with calculation of estimated glomerular filtration rate > NRG Encounters ACCT No. Visit Date/Time Discharge Status Pt. Type Provider Facility Loc./Unit Complaint [id number] 06/16/2014 10:02:00 06/16/2014 23:59:59 CLS Outpatient DONAVON STERLING APRN [id number] 04/27/2014 10:22:00 04/27/2014 23:59:59 CLS Outpatient DONAVON STERLING APRN [id number] 04/12/2014 00:00:00 04/12/2014 23:59:59 CLS Outpatient DONAVON STERLING APRN [id number] 02/16/2014 09:32:00 02/16/2014 23:59:59 CLS Outpatient SOPHIE WADE DO [id number] 02/16/2014 09:32:00 02/16/2014 23:59:59 CLS Outpatient DONAVON STERLING APRN [id number] 01/21/2014 08:52:00 01/21/2014 23:59:59 CLS Outpatient DANA FRYE APRN [id number] 11/12/2013 14:34:00 11/12/2013 23:59:59 CLS Outpatient ASHER AGUIAR DONAVON Metz [id number] 11/12/2013 14:34:00 11/12/2013 23:59:59 CLS Outpatient ASHER AGUIAR DONAVON Metz [id number] 10/30/2013 13:51:00 10/30/2013 23:59:59 CLS Outpatient WADE DO SOPHIE Gordon [id number] 09/28/2013 13:01:00 09/28/2013 23:59:59 CLS Outpatient WADE DOSOPHIE [id number] 09/26/2013 14:02:00 09/26/2013 23:59:59 CLS Outpatient ASHER AGUIAR DONAVON Metz [id number] 09/14/2013 11:15:00 09/14/2013 23:59:59 CLS Outpatient LEILANI HOLLINGSWORTH MD [id number] 05/21/2013 08:51:00 05/21/2013 23:59:59 CLS Outpatient ASHER AGUIAR DONAVON Metz [id number] 05/11/2013 15:21:00 05/11/2013 23:59:59 CLS Outpatient SHANTEMARIANA AGUIAR ANMOL Shi [id number] 03/04/2013 11:03:00 03/04/2013 23:59:59 CLS Outpatient SAMEERA CUMMINS APRNLORE Metz [id number] 02/13/2013 13:23:00 02/13/2013 23:59:59 CLS Outpatient CUMMINS COSME DONG Metz [id number] 12/11/2012 08:54:00 12/11/2012 23:59:59 CLS Outpatient SHERI DOSOPHIE [id number] 06/16/2012 14:49:00 06/16/2012 23:59:59 CLS Outpatient [id number] 05/27/2012 14:59:00 05/27/2012 23:59:59 CLS Outpatient SHERI DOSOPHIE [id number] 02/06/2012 15:28:00 02/06/2012 23:59:59 CLS Outpatient SHERI DOSOPHIE [id number] 09/01/2012 11:08:00 Document Registration [id number] 07/23/2012 15:00:00 Document Registration [id number] 09/27/2017 09:57:00 09/27/2017 23:59:59 CLS Outpatient CISCO JANES Metz PRODUCT DEVELOPMENT TECHNICIAN [facility] RAD PAIN IN RIGHT HIP [id number] 06/04/2017 09:52:00 06/04/2017 23:59:59 CLS Outpatient PECKJANES [place] Isaías PRODUCT DEVELOPMENT TECHNICIAN [facility] RAD Z12.31 SCREENING [id number] 03/27/2016 10:13:00 03/27/2016 18:30:00 DIS Outpatient RICCARDO RUIZ DO [facility] SD BARETTS [id number] 03/22/2016 05:49:00 03/22/2016 11:18:00 DIS Outpatient RICCARDO RUIZ DO [facility] PREOP BARETTS [id number] 03/12/2016 14:33:00 03/12/2016 23:59:59 CLS Outpatient CISCO JANES Metz PRODUCT DEVELOPMENT TECHNICIAN [facility] RAD SCREENING [id number] 01/09/2016 19:30:00 01/09/2016 21:29:00 DIS Emergency JORDON SALEH MD [facility] ER FALL [id number] 08/17/2015 09:09:00 08/17/2015 23:59:59 CLS Outpatient RAHEEM MARINO [facility] RAD MIGRAINE WITHOUT STATUS MIGRAINOSUS LOCALIZED SWEL [id number] 06/01/2015 15:54:00 06/01/2015 23:59:59 CLS Outpatient TEENA DELATORRE PRODUCT DEVELOPMENT TECHNICIAN [facility] RAD UNSPECIFIED FALL INITIAL MID BACK PAIN RIB PAIN R [id number] 05/10/2015 07:01:00 05/10/2015 12:55:00 DIS Outpatient SIMÓN MULLINS FACCPHILLIP FACP CCDS [facility] CATH CAD,ANGINA, FATIGUE [id number] 03/08/2015 10:37:00 03/08/2015 23:59:59 CLS Outpatient DANA FRYE APRN [facility] RAD SCREENING [id number] 11/22/2014 17:04:00 11/22/2014 19:37:00 DIS Emergency MARYBEL QUINN DO [facility] ER RT FOOT PAIN [id number] 03/04/2014 09:44:00 03/04/2014 23:59:59 CLS Outpatient UDAYDANA PRODUCT DEVELOPMENT TECHNICIAN [facility] RAD ROUTINE,OSTEO [id number] 02/02/2014 12:21:00 02/02/2014 15:35:00 DIS Outpatient RUIZ DORICCARDO D [facility] SDC ABDOMINAL PAIN; HX BARRETTS [id number] 01/27/2014 07:36:00 01/27/2014 23:59:59 CLS Outpatient RUIZ DORICCARDO D [facility] PREOP ABDOMINAL PAIN [id number] 01/08/2014 13:39:00 01/08/2014 23:59:59 CLS Outpatient DONAVON STERLING PRODUCT DEVELOPMENT TECHNICIAN [facility] RAD ABD PAIN [id number] 12/03/2013 08:48:00 12/03/2013 23:59:59 CLS Outpatient DONAVON STERLING PRODUCT DEVELOPMENT TECHNICIAN [facility] RAD ABD PAIN, PARTIAL HYSTERECTOMY [id number] 03/16/2016 18:05:00 Document Registration [id number] 07/19/2016 11:09:00 Document Registration [id number] 05/09/2016 15:14:00 Document Registration [id number] 10/09/2017 17:15:00 10/09/2017 23:59:59 C[facility] [id number] 08/27/2017 09:40:00 Document Registration [id number] 08/23/2017 16:40:00 Document Registration [id number] 05/13/2017 15:00:00 Document Registration [id number] 05/13/2017 14:55:00 Document Registration
[2017-10-14] MEDS ORDERED: D5 1/2 NS 1000 ML IV SOLUTION 1,000 ML IV ONE (04:14)
[2017-10-14 04:32] VITALS: BP 117/57
[2017-10-14 06:17] LABS: BASOPHILS % (AUTO) 0 % (0-10); EOSINOPHILS # (AUTO) 0.1 10^3/uL (0.0-0.3); EOSINOPHILS % (AUTO) 1 % (0-10); HEMATOCRIT 33 % (35-52); HEMOGLOBIN 10.6 G/DL (11.5-16.0); LYMPHOCYTES # (AUTO) 2.3 X 10^3 (1.0-4.0); LYMPHOCYTES % (AUTO) 23 % (12-44); MEAN CORPUSCULAR HEMOGLOBIN 26 PG (25-34); MEAN CORPUSCULAR HGB CONC 32 G/DL (32-36); MEAN CORPUSCULAR VOLUME 79 FL (80-99); MEAN PLATELET VOLUME 9.4 FL (7.4-10.4); MONOCYTES # (AUTO) 0.9 X 10^3 (0.0-1.0); MONOCYTES % (AUTO) 10 % (0-12); NEUTROPHILS # (AUTO) 6.4 X 10^3 (1.8-7.8); NEUTROPHILS % (AUTO) 66 % (42-75); PLATELET COUNT 168 10^3/uL (130-400); RED BLOOD COUNT 4.15 10^6/uL (4.35-5.85); RED CELL DISTRIBUTION WIDTH 14.9 % (10.0-14.5); WHITE BLOOD COUNT 9.7 10^3/uL (4.3-11.0)
[2017-10-14 06:41] LABS: ALANINE AMINOTRANSFERASE 9 U/L (0-55); ALBUMIN 3.6 GM/DL (3.2-4.5); ALKALINE PHOSPHATASE 75 U/L (40-136); BUN/CREATININE RATIO 12; CALCIUM 8.8 MG/DL (8.5-10.1); CARBON DIOXIDE 21 MMOL/L (21-32); CHLORIDE 110 MMOL/L (98-107); CREATININE SERUM 0.74 MG/DL (0.60-1.30); GFR ESTIMATED > 60; GLUCOSE 128 MG/DL (70-105); POTASSIUM 3.3 MMOL/L (3.6-5.0); SODIUM 139 MMOL/L (135-145); TOTAL PROTEIN 6.1 GM/DL (6.4-8.2)
[2017-10-14] MEDS ORDERED: KETOROLAC 30 MG/ML VIAL IV PRN (06:45)
[2017-10-14] MEDS ORDERED: fentaNYL INJECTION 100 MCG/2 ML AMP IV PRN (06:45)
[2017-10-14] MEDS ORDERED: ONDANSETRON 4 MG/2 ML (SDV) Z0FRAN IV PRN (06:45)
[2017-10-14] MEDS ORDERED: PIPERACILLIN/TAZO 3.375 GM/D5W 100 ML IV ONE ×2 (06:45)
--- NOTE | 2017-10-14 07:16 | Diagnostic Imaging Report ---
PROCEDURE: CT urinary tract, rule out kidney stone. TECHNIQUE: Multiple contiguous axial images were obtained through the abdomen and pelvis without the use of intravenous contrast. INDICATION: Pelvic pain Comparison is made to the study of 12/03/2013. Linear scarring is again noted in the right lung base. Unenhanced images of the liver and spleen reveal calcified granulomas with no other acute abnormality. There is a small hiatal hernia. Gallbladder surgically absent with persistent dilatation of the extrahepatic bile ducts without significant change from previous study. There is no evidence of adrenal gland abnormality or pancreatic lesion. Nonobstructing calculi are seen centrally within both kidneys without evidence of hydronephrosis or ureteric stone. There is no free fluid in the abdomen or pelvis. There is no evidence of organized fluid collection. Occasional mildly prominent lymph nodes are seen in the retroperitoneum without pathologic adenopathy. There is edema and/or inflammation surrounding the sigmoid colon and rectum which may be related to localized colitis. This could be on the basis of diverticulitis. No definite perforation or abscess is seen. IMPRESSION: Pericolonic and perirectal inflammation may be due to sigmoid colitis and proctitis. No definite abscess or perforation is appreciated. Dictated by: Dictated on workstation # [id number]
--- NOTE | 2017-10-14 07:25 | Diagnostic Imaging Report ---
INDICATION: Abdominal pain. Supine and upright views of the abdomen are obtained with single view of the chest. FINDINGS: Overall heart size and pulmonary vascularity are within normal limits. There is no pneumothorax or consolidation. There is diffuse gaseous distention of small and large bowel. No transition point is seen to indicate an obstruction. No pathologic abdominal calcification is seen. Surgical findings are seen in the gallbladder fossa and right hip. IMPRESSION: No acute abnormality is identified. Dictated by: Dictated on workstation # [id number]
[2017-10-14] MEDS ORDERED: NITR0.4T42 SL (07:50)
[2017-10-14] MEDS ORDERED: CELE-63 PO (07:56)
[2017-10-14] MEDS ORDERED: OXYC-529 PO (07:56)
[2017-10-14] MEDS ORDERED: METF500T5 PO (07:56)
[2017-10-14] MEDS ORDERED: GABA-488 PO (07:56)
[2017-10-14] MEDS ORDERED: MELA5TAB19 PO (07:56)
[2017-10-14] MEDS ORDERED: PRAV20TA3 PO (07:56)
[2017-10-14] MEDS ORDERED: APIX5TAB PO (07:56)
[2017-10-14 08:00] VITALS: BP 103/55
[2017-10-14] MEDS: ACETAMINOPHEN 500 MG TAB (TYLENOL) PO PRN ×2 (09:13→20:27)
[2017-10-14] MEDS: D5 1/2 NS 1000 ML IV SOLUTION 1,000 ML IV SCH ×3 (09:35→20:39)
[2017-10-14] MEDS ORDERED: MELA5TAB14 PO (09:41)
[2017-10-14] MEDS: metroNIDAZOLE 500 MG/100 ML IVPB (PRE-MIX) IV SCH ×3 (10:11→20:29)
--- NOTE | 2017-10-14 10:20 | Consultation-Hospitalist ---
HPI History of Present Illness: HPI/Chief Complaint CC: Abdominal pain HPI: This is a 72-year-old white female clinic patient of [facility] with a past medical history of coronary artery spasm managed by Dr. 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 Patient was found to have a new onset first episode of acute diverticulitis. She reports that she was feeling well until Saturday morning when the pain began. It only worsened over the weekend. Dr. Wilson is planning on bowel rest and IV antibiotics and likely surgery will not be required at this time. She did have an increase consumption of tomatoes along with tomato seeds and she thinks that that may have initiated this episode. Source: patient Exam Limitations: no limitations Date Seen 10/14/17 Attending Physician Kiran Wilson DO PCP Kimmy Rios DO Referring Physician Date of Admission Oct 14, 2017 at 02:30 Home Medications & Allergies Home Medications Reviewed patient Home Medication Reconciliation performed by pharmacy medication reconciliations electronics engineering technician and/or nursing. Patients Allergies have been reviewed. 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[employer]) Alcohol Use: Rarely Uses Number of Drinks Today: 0 Recreational Drug Use: No Smoking Status: Former Smoker Former Smoker, Quit: Mar 25, 1980 Type Used: Cigarettes Physical Abuse Screen: No Sexual Abuse: No Recent Foreign Travel: No Contact w/other who traveled: No Recent Hopitalizations: No Recent Infectious Disease Expo: No Immunizations Up To Date Date of Pneumonia Vaccine: Dec 07, 2014 Date of Influenza Vaccine: Dec 07, 2014 Seasonal Allergies Seasonal Allergies: No Past Medical History Surgeries: Appendectomy, Section, Gallbladder, Hysterectomy, Joint Replacement, Orthopedic, Tonsillectomy, Tubal Ligation Cardiac: Angina, Coronary Artery Disease, Heart Attack, High Cholesterol Neurological: Headaches /Migraines, Neuropathy Reproductive: No Sexually Transmitted Disease: No HIV/AIDS: No Hysterectomy, Menopausal Genitourinary: Kidney Stones, UTI-Chronic Gastrointestinal: Gastroesophageal Reflux, Means's Esophagus, Diverticulosis , Polyps Musculoskeletal: Arthritis, Chronic Back Pain Endocrine: Diabetes, Non-Insulin dep Loss of Vision: Bilateral Hearing Impairment: Denies Cancer: Skin Did You Recieve Any Treatments: Yes What Type of Treatment Did You: Surgical Intervention Psychosocial: Sleep Difficulties History of Blood Disorders: No Adverse Reaction to Blood Bermudez: No (HAS HAD BLOOD WITH NO REACTION) Family History Patient reports no known family medical history. Hypertension Review of Systems Constitutional: see HPI, fever, malaise, weakness EENTM: no symptoms reported Respiratory: no symptoms reported Cardiovascular: no symptoms reported Gastrointestinal: abdominal pain (LLQ) Genitourinary: decreased output, dysuria, frequency Musculoskeletal: back pain Skin: no symptoms reported Psychiatric/Neurological: No Symptoms Reported All Other Systems Reviewed Negative Unless Noted: Yes Physical Exam Physical Exam Vital Signs Vital Signs - First Documented 10/14/17 10/14/17 00:28 04:32 Temp 98.2 Pulse 88 Resp 18 B/P (MAP) 139/78 (98) Pulse Ox 98 O2 Delivery Room Air Capillary Refill : Less Than 3 Seconds Height, Weight, BMI Height: 5'8.00" Weight: 201lbs. 0.0oz. 91.677105kr; 32.7 BMI Method:Stated General Appearance: No Apparent Distress, WD/WN, Obese Eyes: Bilateral Eye Normal Inspection, Bilateral Eye PERRL HEENT: PERRL/EOMI, TMs Normal, Normal ENT Inspection, Pharynx Normal Neck: Full Range of Motion, Normal Inspection, Non Tender, Supple, Carotid Bruit Respiratory: Chest Non Tender, Lungs Clear, Normal Breath Sounds, No Accessory Muscle Use, No Respiratory Distress Cardiovascular: Regular Rate, Rhythm, No Edema, No Gallop, No JVD, No Murmur, Normal Peripheral Pulses Gastrointestinal: Normal Bowel Sounds, No Organomegaly, No Pulsatile Mass, Soft , Tenderness Back: Normal Inspection, No CVA Tenderness, No Vertebral Tenderness Extremity: Normal Capillary Refill, Normal Inspection, Normal Range of Motion, Non Tender, No Calf Tenderness, No Pedal Edema Neurologic/Psychiatric: Alert, Oriented x3, No Motor/Sensory Deficits, Normal Mood/Affect Skin: Normal Color, Warm/Dry Lymphatic: No Adenopathy Results Results/Procedures Labs Laboratory Tests 10/14/17 01:40 10/14/17 05:25 Patient resulted labs reviewed. Assessment/Plan Assessment and Plan Assess & Plan/Chief Complaint Acute diverticulitis Acute UTI Plan: Maintain empiric antibiotics for UTI in addition to acute diverticulitis Restart all home meds including anticoagulation Pain control Anti-emetics Diagnosis/Problems Diagnosis/Problems (1) Acute diverticulitis Status: Acute (2) Urinary tract infection Status: Acute Qualifiers: Urinary tract infection type: site unspecified Hematuria presence: without hematuria Qualified Codes: N39.0 - Urinary tract infection, site not specified (3) History of DVT (deep vein thrombosis) Status: Chronic (4) Neuropathy Status: Chronic (5) Hyperlipidemia Status: Chronic Qualifiers: Hyperlipidemia type: mixed hyperlipidemia Qualified Codes: E78.2 - Mixed hyperlipidemia (6) Diabetes mellitus Status: Chronic Qualifiers: Diabetes mellitus type: type 2 Diabetes mellitus longterm insulin use: without bobbin handler use Diabetes mellitus complication status: with unspecified complications Qualified Codes: E11.8 - Type 2 diabetes mellitus with unspecified complications (7) Anemia Status: Acute Qualifiers: Anemia type: unspecified type Qualified Codes: D64.9 - Anemia, unspecified (8) Hypokalemia Status: Acute Clinical Quality Measures DVT/VTE Risk/Contraindication: Risk Factor Score Per Nursin RFS Level Per Nursing on Admit: 4+=Very High MARLENI GONZALEZ DO Oct 14, 2017 10:20
[2017-10-14] MEDS ORDERED: NON-FORMULARY MEDICATION 1 EA EA (Hydroxyzine HCl 25 MG) PO PRN (10:30)
[2017-10-14] MEDS ORDERED: NITROGLYCERIN 0.4 MG SL TABS BTL 25'S SL PRN (10:30)
[2017-10-14] MEDS ORDERED: hydrOXYzine (VISTARIL) 25 MG CAP PO PRN (10:45)
[2017-10-14 12:18] VITALS: BP 89/50
[2017-10-14 14:00] VITALS: BP 114/66
[2017-10-14] MEDS: PIPERACILLIN/TAZO 3.375 GM/D5W 100 ML IV SCH ×4 (15:48→23:50)
[2017-10-14 16:00] VITALS: BP 114/66
--- NOTE | 2017-10-14 19:53 | History & Physical-Surgical ---
History of Present Illness History of Present Illness Reason for visit/HPI CC: LLQ abdominal pain. patient is a 72 year old female with pain in the left lower quadrant that began Saturday evening. Patient pain was moderate and continued to increase. Pain would radiate around rectum and into low back. Patient had fever slightly above 101 degrees. Patient with no nausea.or vomiting. She has had diarrhea over the last week. Nothing seems to be making her symptoms worse and nothing seems to be making it better. Has some discomfort with urination but once voids seems to improve some. She had a ct scan that demonstrates acute sigmoid diverticulitis without perforation or abscess. Date of Admission Oct 14, 2017 at 02:30 Date Seen by Provider: Oct 14, 2017 Time Seen by Provider: 08:10 I consulted on this patient on 10/14/17 19:47 Attending Physician Riccardo Ruiz DO Admitting Physician Kimmy Rios DO Consult Allergies and Home Medications Allergies Coded Allergies: ciprofloxacin (Verified Allergy, Intermediate, LEG CRAMPS, 03/22/16) hydrocodone (Verified Allergy, Unknown, 11/22/14) morphine (Verified Allergy, Unknown, 11/22/14) pseudoephedrine (Verified Allergy, Unknown, 11/22/14) triprolidine (Verified Allergy, Unknown, 11/22/14) Home Medications Apixaban 5 Mg Tablet, 5 MG PO BID, (Reported) Celecoxib 200 Mg Capsule, 200 MG PO BID, (Reported) Gabapentin 300 Mg Capsule, 300 MG PO HS, (Reported) Hydroxyzine HCl 25 Mg Tablet, 25 MG PO Q8H PRN for ITCHING CAUSED BY PAIN PILL, (Reported) Melatonin 5 Mg Tablet, 5 MG PO HS, (Reported) Metformin HCl 500 Mg Tablet, 500 MG PO HS, (Reported) Nitroglycerin 0.4 Mg Tab.subl, 0.4 MG SL UD PRN for CHEST PAIN, (Reported) Oxycodone HCl 5 Mg Tablet, 5 MG PO Q6H PRN for PAIN-SEVERE, (Reported) Pantoprazole Sodium 40 Mg Tablet.dr, 40 MG PO DAILY, (Reported) Pravastatin Sodium 20 Mg Tablet, 20 MG PO HS, (Reported) Patient Home Medication List Home Medication List Reviewed: Yes Past Imftiab-Gvfiju-Rbhhmr Hx Patient Social History Alcohol Use: Rarely Uses Number of Drinks Today: 0 Recreational Drug Use: No Smoking Status: Former Smoker Former Smoker, Quit: Mar 25, 1980 Type Used: Cigarettes Recent Foreign Travel: No Contact w/Someone Who Travel: No Recent Infectious Disease Expo: No Recent Hopitalizations: No Physical Abuse Screen: No Sexual Abuse: No Immunizations Up To Date Date of Pneumonia Vaccine: Dec 07, 2014 Date of Influenza Vaccine: Dec 07, 2014 Seasonal Allergies Seasonal Allergies: No Surgeries History of Surgeries: Yes (RIGHT LUNG--REMOVAL OF MASS--HISTOPLASMOSIS; RIGHT HIP REPLACEMENT 06/2017; RIGHT SHOULDER; HYST/OVARIES INTACT; CARDIAC CATH--NO INTERVENTION 1996; EGD'S--LAST ONE 2015; COLONOSCOPIES--LAST ONE 2013) Surgeries: Appendectomy, Section, Gallbladder, Hysterectomy, Joint Replacement, Orthopedic, Tonsillectomy, Tubal Ligation Respiratory History of Respiratory Disorde: Yes (POST OP P.E.'S--2009 AFTER RIGHT LUNG SURGERY AND 06/2017 AFTER RIGHT HIP REPLACEMENT; RIGHT LUNG MASS REMOVED 2009-- HISTOPLASMOSIS) Respiratory Disorders: Asthma ( A CHILD), Pulmonary Embolism Cardiovascular History of Cardiac Disorders: Yes (ANGINA-STRESS INDUCED; STATES SHE HAD 2 HEART ATTACKS IN 1996 --FELT TO BE STRESS-RELATED. HAD CARDIAC CATH WITH NO INTERVENTION--[facility] IN [place]; STILL HAS "ANGINA" AND TAKES NTG FOR IT) Cardiac Disorders: Angina, Coronary Artery Disease, Heart Attack, High Cholesterol Neurological History of Neurological Disord: Yes Neurological Disorders: Headaches /Migraines Reproductive System Hx Reproductive Disorders: No Sexually Transmitted Disease: No HIV/AIDS: No INJURY/SAFETY HAZARD ASSESSMENT History: Hysterectomy, Menopausal Genitourinary History of Genitourinary Disor: Yes Genitourinary Disorders: Kidney Stones, UTI-Chronic Gastrointestinal History of Gastrointestinal Di: Yes Gastrointestinal Disorders: Gastroesophageal Reflux, Means's Esophagus, Diverticulosis, Polyps Musculoskeletal History of Musculoskeletal Dis: Yes (MILD BACK PAIN; RIGHT HIP PAIN--S/P REPLACEMENT 07/16/17--DR. CANO) Musculoskeletal Disorders: Arthritis, Chronic Back Pain Endocrine History of Endocrine Disorders: Yes Endocrine Disorders: Diabetes, Non-Insulin dep HEENT History of HEENT Disorders: No Loss of Vision: Bilateral Hearing Impairment: Denies Cancer History of Cancer: Yes (SQUAMOUS CELL) Cancer: Skin Psychosocial History of Psychiatric Problem: Yes Behavioral Health Disorders: Sleep Difficulties Integumentary History of Skin or Integumenta: No Blood Transfusions History of Blood Disorders: No Adverse Reaction to a Blood Tr: No (HAS HAD BLOOD WITH NO REACTION) Family Medical History Significant Family History: No Pertinent Family Hx Family Medial History: Patient reports no known family medical history. Constitutional: no symptoms reported EENTM: no symptoms reported Respiratory: no symptoms reported Cardiovascular: no symptoms reported Gastrointestinal: see HPI Genitourinary: see HPI Musculoskeletal: no symptoms reported Skin: no symptoms reported Psychiatric/Neurological: No Symptoms Reported Physical Exam Vital Signs Vital Signs - First Documented 10/14/17 10/14/17 00:28 04:32 Temp 98.2 Pulse 88 Resp 18 B/P (MAP) 139/78 (98) Pulse Ox 98 O2 Delivery Room Air Capillary Refill : Less Than 3 Seconds Height, Weight, BMI Height: 5'8.00" Weight: 201lbs. 0.0oz. [id number]; 32.7 BMI Method:Stated General Appearance: No Apparent Distress HEENT: PERRL/EOMI, Normal ENT Inspection Neck: Non Tender, Supple Respiratory: No Accessory Muscle Use, No Respiratory Distress Cardiovascular: Regular Rate, Rhythm Gastrointestinal: Soft (tenderness left lower quadrant no guarding or rebounding.) Rectal: Deferred Back: Normal Inspection Extremity: Normal Inspection, Normal Range of Motion, Non Tender Neurologic/Psychiatric: Alert, Oriented x3, No Motor/Sensory Deficits Skin: Warm/Dry Lymphatic: No Adenopathy Data Review Labs Laboratory Tests 10/14/17 00:45: Urine Color YELLOW, Urine Clarity CLEAR, Urine pH 7, Urine Specific [place] 1.005L, Urine Protein NEGATIVE, Urine Glucose (UA) NEGATIVE, Urine Ketones 2+H, Urine Nitrite NEGATIVE, Urine Bilirubin NEGATIVE, Urine Urobilinogen NORMAL, Urine Leukocyte Esterase 1+H, Urine RBC (Auto) 1+H, Urine RBC 0-2, Urine WBC 5- 10H, Urine Squamous Epithelial Cells 5-10, Urine Crystals NONE, Urine Bacteria TRACE, Urine Casts NONE, Urine Mucus NEGATIVE, Urine Culture Indicated YES 10/14/17 01:40: White Blood Count 12.1H, Red Blood Count 4.88, Hemoglobin 12.6, Hematocrit 38, Mean Corpuscular Volume 78L, Mean Corpuscular Hemoglobin 26, Mean Corpuscular Hemoglobin Concent 33, Red Cell Distribution Width 15.1H, Platelet Count 215, Mean Platelet Volume 8.9, Neutrophils (%) (Auto) 72, Lymphocytes (%) (Auto) 18, Monocytes (%) (Auto) 10, Eosinophils (%) (Auto) 0, Basophils (%) (Auto) 0, Neutrophils # (Auto) 8.8H, Lymphocytes # (Auto) 2.2, Monocytes # (Auto) 1.2H, Eosinophils # (Auto) 0.0, Basophils # (Auto) 0.0, Sodium Level 141, Potassium Level 3.8, Chloride Level 108H, Carbon Dioxide Level 22, Anion Gap 11, Blood Urea Nitrogen 9, Creatinine 0.82, Estimat Glomerular Filtration Rate > 60, BUN/ Creatinine Ratio 11, Glucose Level 111H, Calcium Level 9.8, Total Bilirubin 1.1H , Aspartate Amino Transf (AST/SGOT) 18, Alanine Aminotransferase (ALT/SGPT) 12, Alkaline Phosphatase 90, Total Protein 7.5, Albumin 4.3, Amylase Level 27, Lipase 22 10/14/17 02:15: Lactic Acid Level 0.90 10/14/17 05:25: White Blood Count 9.7, Red Blood Count 4.15L, Hemoglobin 10.6L, Hematocrit 33L, Mean Corpuscular Volume 79L, Mean Corpuscular Hemoglobin 26, Mean Corpuscular Hemoglobin Concent 32, Red Cell Distribution Width 14.9H, Platelet Count 168, Mean Platelet Volume 9.4, Neutrophils (%) (Auto) 66, Lymphocytes (%) (Auto) 23, Monocytes (%) (Auto) 10, Eosinophils (%) (Auto) 1, Basophils (%) (Auto) 0, Neutrophils # (Auto) 6.4, Lymphocytes # (Auto) 2.3, Monocytes # (Auto) 0.9, Eosinophils # (Auto) 0.1, Basophils # (Auto) 0.0, Sodium Level 139, Potassium Level 3.3L, Chloride Level 110H, Carbon Dioxide Level 21, Anion Gap 8, Blood Urea Nitrogen 9, Creatinine 0.74, Estimat Glomerular Filtration Rate > 60, BUN/ Creatinine Ratio 12, Glucose Level 128H, Calcium Level 8.8, Total Bilirubin 1.0 , Aspartate Amino Transf (AST/SGOT) 14, Alanine Aminotransferase (ALT/SGPT) 9, Alkaline Phosphatase 75, Total Protein 6.1L, Albumin 3.6 Microbiology 10/14/17 Blood Culture - Preliminary, Resulted No growth 10/14/17 Urine Culture - Preliminary, Resulted Sent To [facility] Assessment/Plan Assessment/Plan Admission Diagonsis Acute diverticulitis UTI Admission Status: Inpatient Order (span 2 midnights) Reason for Inpatient Admission: Patient need IV antibiotics and close monitoring for re-evaluation if surgical intervention needed. Assessment/Plan acute diverticulitis UTI CLear liquid diet wbc down slightly will continue to see how she progresses repeat labs in am continue abx repeat physical exams will need colonoscopy 6 weeks after resolves. Clinical Quality Measures DVT/VTE Risk/Contraindication: Risk Factor Score Per Nursin RFS Level Per Nursing on Admit: 4+=Very High RICCARDO RUIZ DO Oct 14, 2017 19:53
[2017-10-14 20:02] VITALS: BP 121/65
[2017-10-14] MEDS: APIXABAN 5 MG (ELIQUIS) TABLET PO SCH (20:25)
[2017-10-14] MEDS: SIMvastatin 10 MG (ZOCOR) TAB PO SCH (20:25)
[2017-10-14] MEDS: GABAPENTIN 300 MG (NEURONTIN) CAP PO SCH (20:26)
[2017-10-14] MEDS: CELECOXIB 100 MG (CeleBREX) CAP PO SCH (20:26)
[2017-10-14] MEDS: MELATONIN 3 MG TABLET PO SCH (20:26)
[2017-10-14] MEDS ORDERED: NON-FORMULARY MEDICATION 1 EA EA (Melatonin 5 MG) PO SCH (21:00)
[2017-10-14] MEDS ORDERED: NON-FORMULARY MEDICATION 1 EA EA (Pravastatin Sodium 20 MG) PO SCH (21:00)
[2017-10-14] MEDS ORDERED: NON-FORMULARY MEDICATION 1 EA EA (Celecoxib 200 MG) PO SCH (21:00)
[2017-10-15] VITALS (7 sets, daily range): BP systolic 99–156; BP diastolic 54–65
[2017-10-15] MEDS: metroNIDAZOLE 500 MG/100 ML IVPB (PRE-MIX) IV SCH ×4 (03:37→20:19)
[2017-10-15] MEDS: D5 1/2 NS 1000 ML IV SOLUTION 1,000 ML IV SCH ×4 (03:42→22:54)
[2017-10-15 06:06] LABS: HEMOGLOBIN 11.5 G/DL (11.5-16.0); MEAN PLATELET VOLUME 9.6 FL (7.4-10.4); RED BLOOD COUNT 4.29 10^6/uL (4.35-5.85); RED CELL DISTRIBUTION WIDTH 14.9 % (10.0-14.5)
[2017-10-15 06:16] LABS: BUN/CREATININE RATIO 8; CARBON DIOXIDE 23 MMOL/L (21-32); CHLORIDE 111 MMOL/L (98-107); CREATININE SERUM 0.85 MG/DL (0.60-1.30); GFR ESTIMATED > 60; GLUCOSE 118 MG/DL (70-105); POTASSIUM 3.7 MMOL/L (3.6-5.0); SODIUM 142 MMOL/L (135-145)
[2017-10-15] MEDS: PIPERACILLIN/TAZO 3.375 GM/D5W 100 ML IV SCH ×6 (07:29→22:54)
[2017-10-15] MEDS: PANTOPRAZOLE 40 MG (PROTONIX) TAB PO SCH (07:29)
[2017-10-15] MEDS: APIXABAN 5 MG (ELIQUIS) TABLET PO SCH ×2 (09:19→20:21)
[2017-10-15] MEDS: CELECOXIB 100 MG (CeleBREX) CAP PO SCH ×2 (09:19→20:21)
--- NOTE | 2017-10-15 10:14 | Progress Note-Hospitalist ---
Subjective HPI/CC On Admission Date Seen by Provider: Oct 15, 2017 Time Seen by Provider: 09:45 CC: Abdominal pain HPI: This is a 72-year-old white female clinic patient of [facility] with a past medical history of coronary artery spasm managed by Dr. 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 Patient was found to have a new onset first episode of acute diverticulitis. She reports that she was feeling well until Saturday morning when the pain began. It only worsened over the weekend. Dr. Wilson is planning on bowel rest and IV antibiotics and likely surgery will not be required at this time. She did have an increase consumption of tomatoes along with tomato seeds and she thinks that that may have initiated this episode. Subjective/Events-last exam Patient doing much better Up in a chair and ambulating well No bowel movement Abdominal pain much improved Desperately wants something to eat I conferred with Dr. Wilson who approves soft diet Check meds and labs Vitals remained stable Review of Systems General: Malaise Gastrointestinal: Abdominal Pain Focused Exam Lactate Level 10/14/17 02:15: Lactic Acid Level 0.90 Objective Exam Vital Signs Vital Signs Date Time Temp Pulse Resp B/P (MAP) Pulse Ox O2 Delivery O2 Flow Rate FiO2 10/15/17 16:15 99.3 73 18 99/54 (69) 97 Room Air Capillary Refill : Less Than 3 Seconds General Appearance: No Apparent Distress, WD/WN Respiratory: Chest Non Tender, Lungs Clear, Normal Breath Sounds, No Accessory Muscle Use, No Respiratory Distress Cardiovascular: Regular Rate, Rhythm, No Edema, No Gallop, No JVD, No Murmur, Normal Peripheral Pulses Gastrointestinal: Normal Bowel Sounds, No Organomegaly, No Pulsatile Mass, Soft , Tenderness (mild lower pelvic) Extremity: Normal Capillary Refill, Normal Inspection, Normal Range of Motion, Non Tender, No Calf Tenderness, No Pedal Edema Neurologic/Psychiatric: Alert, Oriented x3, No Motor/Sensory Deficits, Normal Mood/Affect Results/Procedures Lab Laboratory Tests 10/15/17 05:30 Patient resulted labs reviewed. Assessment/Plan Assessment and Plan Assess & Plan/Chief Complaint Acute diverticulitis Acute UTI Plan: Maintain empiric antibiotics for UTI in addition to acute diverticulitis Restart all home meds including anticoagulation Pain control Anti-emetics Advance diet to soft Diagnosis/Problems Diagnosis/Problems (1) Acute diverticulitis Status: Acute (2) Urinary tract infection Status: Acute Qualifiers: Urinary tract infection type: site unspecified Hematuria presence: without hematuria Qualified Codes: N39.0 - Urinary tract infection, site not specified (3) History of DVT (deep vein thrombosis) Status: Chronic (4) Neuropathy Status: Chronic (5) Hyperlipidemia Status: Chronic Qualifiers: Hyperlipidemia type: mixed hyperlipidemia Qualified Codes: E78.2 - Mixed hyperlipidemia (6) Diabetes mellitus Status: Chronic Qualifiers: Diabetes mellitus type: type 2 Diabetes mellitus chcf insulin use: without chcf use Diabetes mellitus complication status: with unspecified complications Qualified Codes: E11.8 - Type 2 diabetes mellitus with unspecified complications (7) Anemia Status: Acute Qualifiers: Anemia type: unspecified type Qualified Codes: D64.9 - Anemia, unspecified (8) Hypokalemia Status: Acute Clinical Quality Measures DVT/VTE Risk/Contraindication: Risk Factor Score Per Nursin RFS Level Per Nursing on Admit: 4+=Very High MARLENI GONZALEZ DO Oct 15, 2017 10:14
--- NOTE | 2017-10-15 18:41 | Progress Note ---
Subjective Date Seen by Provider: Oct 15, 2017 Time Seen by Provider: 13:52 Subjective/Events-last exam Patient feeling better today. Hungry and was happy to start more regular food. Pain is minimal. Denies n/v fever sweats chills shortness of breath or chest pain. WBC normal range. Focused Exam Lactate Level 10/14/17 02:15: Lactic Acid Level 0.90 Objective Exam Vital Signs Date Time Temp Pulse Resp B/P (MAP) Pulse Ox O2 Delivery O2 Flow Rate FiO2 10/15/17 16:15 99.3 73 18 99/54 (69) 97 Room Air 10/15/17 11:47 98.2 63 16 109/55 (73) 99 Room Air 10/15/17 07:45 98.4 69 14 127/59 (81) 100 Room Air 10/15/17 04:25 99.2 63 16 115/54 (74) 97 Room Air 10/15/17 00:27 97.2 66 18 112/57 (75) 94 10/14/17 20:02 98.4 64 20 121/65 (83) 99 Room Air I & O 10/15/17 07:00 Intake Total 4840 ml Output Total 2900 ml Balance 1940 ml Capillary Refill : Less Than 3 Seconds General Appearance: No Apparent Distress, WD/WN, Obese HEENT: PERRL/EOMI, TMs Normal, Normal ENT Inspection, Pharynx Normal Neck: Full Range of Motion, Normal Inspection, Non Tender, Supple, Carotid Bruit Respiratory: Chest Non Tender, Lungs Clear, Normal Breath Sounds, No Accessory Muscle Use, No Respiratory Distress Cardiovascular: Regular Rate, Rhythm, No Edema, No Gallop, No JVD, No Murmur, Normal Peripheral Pulses Gastrointestinal: soft; No distended, No guarding, No rebound; tenderness (LLQ minimal tenderness); No hernia, No mass Extremity: Normal Capillary Refill, Normal Inspection, Normal Range of Motion, Non Tender, No Calf Tenderness, No Pedal Edema Neurologic/Psychiatric: Alert, Oriented x3, No Motor/Sensory Deficits, Normal Mood/Affect Skin: Normal Color, Warm/Dry Lymphatic: No Adenopathy Results Lab Laboratory Tests 10/15/17 05:30: White Blood Count 5.0, Red Blood Count 4.29L, Hemoglobin 11.5, Hematocrit 35, Mean Corpuscular Volume 80, Mean Corpuscular Hemoglobin 27, Mean Corpuscular Hemoglobin Concent 33, Red Cell Distribution Width 14.9H, Platelet Count 146, Mean Platelet Volume 9.6, Sodium Level 142, Potassium Level 3.7, Chloride Level 111H, Carbon Dioxide Level 23, Anion Gap 8, Blood Urea Nitrogen 7, Creatinine 0.85, Estimat Glomerular Filtration Rate > 60, BUN/Creatinine Ratio 8, Glucose Level 118H, Calcium Level 9.0 Microbiology 10/14/17 Blood Culture - Preliminary, Resulted No growth 10/14/17 Urine Culture - Final, Complete Sent To [facility] Assessment/Plan Assessment/Plan Assessment/Plan acute diverticulitis UTI soft diet wbc normal will continue to see how she progresses continue abx repeat physical exams will need colonoscopy 6 weeks after resolves. Clinical Quality Measures DVT/VTE Risk/Contraindication: Risk Factor Score Per Nursin RFS Level Per Nursing on Admit: 4+=Very High RICCARDO RUIZ DO Oct 15, 2017 18:41
[2017-10-15] MEDS: MELATONIN 3 MG TABLET PO SCH (20:21)
[2017-10-15] MEDS: SIMvastatin 10 MG (ZOCOR) TAB PO SCH (20:21)
[2017-10-15] MEDS: GABAPENTIN 300 MG (NEURONTIN) CAP PO SCH (20:21)
[2017-10-16] MEDS: metroNIDAZOLE 500 MG/100 ML IVPB (PRE-MIX) IV SCH ×2 (03:08→09:31)
[2017-10-16 03:35] VITALS: BP 119/62
[2017-10-16] MEDS: PANTOPRAZOLE 40 MG (PROTONIX) TAB PO SCH (06:00)
[2017-10-16] MEDS: PIPERACILLIN/TAZO 3.375 GM/D5W 100 ML IV SCH ×2 (06:01)
[2017-10-16 06:21] LABS: BASOPHILS % (AUTO) 0 % (0-10); EOSINOPHILS # (AUTO) 0.3 10^3/uL (0.0-0.3); EOSINOPHILS % (AUTO) 8 % (0-10); HEMATOCRIT 33 % (35-52); HEMOGLOBIN 10.8 G/DL (11.5-16.0); LYMPHOCYTES # (AUTO) 0.4 X 10^3 (1.0-4.0); LYMPHOCYTES % (AUTO) 11 % (12-44); MEAN CORPUSCULAR HEMOGLOBIN 26 PG (25-34); MEAN CORPUSCULAR HGB CONC 33 G/DL (32-36); MEAN CORPUSCULAR VOLUME 80 FL (80-99); MEAN PLATELET VOLUME 9.5 FL (7.4-10.4); MONOCYTES # (AUTO) 0.3 X 10^3 (0.0-1.0); MONOCYTES % (AUTO) 6 % (0-12); NEUTROPHILS # (AUTO) 2.9 X 10^3 (1.8-7.8); NEUTROPHILS % (AUTO) 75 % (42-75); PLATELET COUNT 155 10^3/uL (130-400); WHITE BLOOD COUNT 3.9 10^3/uL (4.3-11.0)
[2017-10-16 06:49] LABS: ALANINE AMINOTRANSFERASE 9 U/L (0-55); ALBUMIN 3.2 GM/DL (3.2-4.5); ALKALINE PHOSPHATASE 69 U/L (40-136); BILIRUBIN,TOTAL 0.5 MG/DL (0.1-1.0); BUN/CREATININE RATIO 6; CALCIUM 8.7 MG/DL (8.5-10.1); CARBON DIOXIDE 22 MMOL/L (21-32); CHLORIDE 113 MMOL/L (98-107); CREATININE SERUM 0.81 MG/DL (0.60-1.30); GFR ESTIMATED > 60; GLUCOSE 120 MG/DL (70-105); POTASSIUM 3.1 MMOL/L (3.6-5.0); SODIUM 141 MMOL/L (135-145); TOTAL PROTEIN 5.6 GM/DL (6.4-8.2)
[2017-10-16] MEDS: D5 1/2 NS 1000 ML IV SOLUTION 1,000 ML IV SCH (06:56)
[2017-10-16 08:00] VITALS: BP 103/55
[2017-10-16] MEDS: CELECOXIB 100 MG (CeleBREX) CAP PO SCH (09:09)
[2017-10-16] MEDS: APIXABAN 5 MG (ELIQUIS) TABLET PO SCH (09:09)
[2017-10-16] MEDS ORDERED: KCL 20 MEQ TAB (K-DUR) PO NR (10:47)
[2017-10-16] MEDS ORDERED: POTA10TA36 PO (10:52)
[2017-10-16] MEDS ORDERED: AMOX-358 PO (10:52)
--- NOTE | 2017-10-16 10:56 | Discharge Summary-Hospitalist ---
Diagnosis/Chief Complaint Date of Admission Oct 14, 2017 at 02:30 Date of Discharge Discharge Date: Oct 16, 2017 Discharge Diagnosis (1) Acute diverticulitis Status: Acute (2) Urinary tract infection Status: Acute (3) History of DVT (deep vein thrombosis) Status: Chronic (4) Neuropathy Status: Chronic (5) Hyperlipidemia Status: Chronic (6) Diabetes mellitus Status: Chronic (7) Anemia Status: Acute (8) Hypokalemia Status: Acute Discharge Summary Discharge Physical Exam Allergies: Coded Allergies: ciprofloxacin (Verified Allergy, Intermediate, LEG CRAMPS, 03/22/16) hydrocodone (Verified Allergy, Unknown, 11/22/14) morphine (Verified Allergy, Unknown, 11/22/14) pseudoephedrine (Verified Allergy, Unknown, 11/22/14) triprolidine (Verified Allergy, Unknown, 11/22/14) Vitals & I&Os Vital Signs Date Time Temp Pulse Resp B/P (MAP) Pulse Ox O2 Delivery O2 Flow Rate FiO2 10/16/17 13:40 10/16/17 08:00 98.8 63 18 95 Room Air General Appearance: Alert, Oriented X3, Cooperative HEENT: Atraumatic, PERRLA Respiratory: Clear to Auscultation, Normal Air Movement Cardiovascular: Regular Rate, Normal S1, Normal S2 Abdominal: Normal Bowel Sounds, Soft Extremities: No Clubbing, No Cyanosis Skin: No Rashes, No Breakdown Neuro: Normal Gait, Strength at 5/5 X4 Ext Psych/Mental Status: Mental Status NL, Mood NL Hospital Course Hospital course: Patient had a standard hospital course she was admitted for acute diverticulitis and empirically placed on appropriate antibiotics. Dr. Wilson monitor closely and no surgical requirement was necessary. She will need further workup including a repeat colonoscopy in the near future and will have close follow-up with her primary care provider. Pain was improved at time of discharge and she had plenty of pain medication at home and she was maintained on all current medications and she will complete Augmentin antibiotic therapy for UTI and diverticulitis and will be monitored closely in the meantime. Labs (last 24 hrs) Laboratory Tests 10/16/17 05:55: White Blood Count 3.9L, Red Blood Count 4.10L, Hemoglobin 10.8L, Hematocrit 33L , Mean Corpuscular Volume 80, Mean Corpuscular Hemoglobin 26, Mean Corpuscular Hemoglobin Concent 33, Red Cell Distribution Width 15.0H, Platelet Count 155, Mean Platelet Volume 9.5, Neutrophils (%) (Auto) 75, Lymphocytes (%) (Auto) 11L , Monocytes (%) (Auto) 6, Eosinophils (%) (Auto) 8, Basophils (%) (Auto) 0, Neutrophils # (Auto) 2.9, Lymphocytes # (Auto) 0.4L, Monocytes # (Auto) 0.3, Eosinophils # (Auto) 0.3, Basophils # (Auto) 0.0, Sodium Level 141, Potassium Level 3.1L, Chloride Level 113H, Carbon Dioxide Level 22, Anion Gap 6, Blood Urea Nitrogen 5L, Creatinine 0.81, Estimat Glomerular Filtration Rate > 60, BUN/ Creatinine Ratio 6, Glucose Level 120H, Calcium Level 8.7, Total Bilirubin 0.5, Aspartate Amino Transf (AST/SGOT) 14, Alanine Aminotransferase (ALT/SGPT) 9, Alkaline Phosphatase 69, Total Protein 5.6L, Albumin 3.2 Microbiology 10/14/17 Blood Culture - Preliminary, Resulted No growth 10/14/17 Urine Culture - Final, Complete Sent To [facility] Patient resulted labs reviewed. Pending Labs Discussion & Recommendations Discharge Planning: <30 minutes discharge planning Discharge Home Medications: Active Scripts Active Potassium Chloride 10 Meq Tab.er.prt 10 Meq PO DAILY Augmentin 875-125 Tablet (Amoxicillin/Potassium Clav) 1 Each Tablet 1 Each PO BID Reported Melatonin 5 Mg Tablet 5 Mg PO HS Metformin HCl 500 Mg Tablet 500 Mg PO HS Gabapentin 300 Mg Capsule 300 Mg PO HS Eliquis (Apixaban) 5 Mg Tablet 5 Mg PO BID Celecoxib 200 Mg Capsule 200 Mg PO BID Oxycodone HCl 5 Mg Tablet 5 Mg PO Q6H PRN Pravastatin Sodium 20 Mg Tablet 20 Mg PO HS Nitroglycerin 0.4 Mg Tab.subl 0.4 Mg SL UD PRN Protonix (Pantoprazole Sodium) 40 Mg Tablet.dr 40 Mg PO DAILY Hydroxyzine HCl 25 Mg Tablet 25 Mg PO Q8H PRN Instructions to patient/family Please see electronic discharge instructions given to patient. Clinical Quality Measures DVT/VTE Risk/Contraindication: Risk Factor Score Per Nursin RFS Level Per Nursing on Admit: 4+=Very High Problem Qualifiers (1) Urinary tract infection: Urinary tract infection type: site unspecified Hematuria presence: without hematuria Qualified Codes: N39.0 - Urinary tract infection, site not specified (2) Hyperlipidemia: Hyperlipidemia type: mixed hyperlipidemia Qualified Codes: E78.2 - Mixed hyperlipidemia (3) Diabetes mellitus: Diabetes mellitus type: type 2 Diabetes mellitus custodial insulin use: without custodial use Diabetes mellitus complication status: with unspecified complications Qualified Codes: E11.8 - Type 2 diabetes mellitus with unspecified complications (4) Anemia: Anemia type: unspecified type Qualified Codes: D64.9 - Anemia, unspecified MARLENI GONZALEZ DO Oct 16, 2017 10:56
--- NOTE | 2017-10-16 16:54 | Progress Note ---
Subjective Date Seen by Provider: Oct 16, 2017 Time Seen by Provider: 08:14 Subjective/Events-last exam Patient states she still doing well. She's not having any fevers. She feels that her pain is about the same as yesterday about a 4-5 out of 10. Feeling significant better. She's tolerating diet. She's 3-year-old home. She denies any nausea vomiting fever sweats chills shortness of breath or chest pain. Her white blood cell count down this down. And her potassium is down. Focused Exam Lactate Level 10/14/17 02:15: Lactic Acid Level 0.90 Objective Exam Vital Signs Date Time Temp Pulse Resp B/P (MAP) Pulse Ox O2 Delivery O2 Flow Rate FiO2 10/16/17 13:40 10/16/17 08:00 98.8 63 18 103/55 (71) 95 Room Air 10/16/17 03:35 97.0 69 16 119/62 (81) 98 Room Air 10/15/17 23:50 98.4 66 18 117/61 (79) 98 Room Air 10/15/17 20:15 99.6 73 20 156/65 (95) 99 Room Air I & O 10/16/17 07:00 Intake Total 3125 ml Output Total 2800 ml Balance 325 ml Capillary Refill : Less Than 3 Seconds General Appearance: No Apparent Distress, WD/WN HEENT: PERRL/EOMI, Normal ENT Inspection Neck: Full Range of Motion, Normal Inspection, Non Tender, Supple Respiratory: Chest Non Tender, No Accessory Muscle Use, No Respiratory Distress Cardiovascular: Regular Rate, Rhythm Gastrointestinal: soft; No distended, No guarding, No rebound; tenderness (LLQ minimal tenderness); No hernia, No mass Extremity: Normal Capillary Refill, Normal Inspection, Normal Range of Motion, Non Tender, No Calf Tenderness, No Pedal Edema Neurologic/Psychiatric: Alert, Oriented x3, No Motor/Sensory Deficits, Normal Mood/Affect Skin: Normal Color, Warm/Dry Lymphatic: No Adenopathy Results Lab Laboratory Tests 10/16/17 05:55: White Blood Count 3.9L, Red Blood Count 4.10L, Hemoglobin 10.8L, Hematocrit 33L , Mean Corpuscular Volume 80, Mean Corpuscular Hemoglobin 26, Mean Corpuscular Hemoglobin Concent 33, Red Cell Distribution Width 15.0H, Platelet Count 155, Mean Platelet Volume 9.5, Neutrophils (%) (Auto) 75, Lymphocytes (%) (Auto) 11L , Monocytes (%) (Auto) 6, Eosinophils (%) (Auto) 8, Basophils (%) (Auto) 0, Neutrophils # (Auto) 2.9, Lymphocytes # (Auto) 0.4L, Monocytes # (Auto) 0.3, Eosinophils # (Auto) 0.3, Basophils # (Auto) 0.0, Sodium Level 141, Potassium Level 3.1L, Chloride Level 113H, Carbon Dioxide Level 22, Anion Gap 6, Blood Urea Nitrogen 5L, Creatinine 0.81, Estimat Glomerular Filtration Rate > 60, BUN/ Creatinine Ratio 6, Glucose Level 120H, Calcium Level 8.7, Total Bilirubin 0.5, Aspartate Amino Transf (AST/SGOT) 14, Alanine Aminotransferase (ALT/SGPT) 9, Alkaline Phosphatase 69, Total Protein 5.6L, Albumin 3.2 Microbiology 10/14/17 Blood Culture - Preliminary, Resulted No growth 10/14/17 Urine Culture - Final, Complete Sent To [facility] Assessment/Plan Assessment/Plan Assessment/Plan acute diverticulitis UTI Hypokalemia soft diet Having more pain would recommend dropping to more of a liquid diet until pain improves Continue on antibiotics will need colonoscopy 6 weeks after resolves. Replace potassium Patient okay to [place] home if medicine in agreement Clinical Quality Measures DVT/VTE Risk/Contraindication: Risk Factor Score Per Nursin RFS Level Per Nursing on Admit: 4+=Very High RICCARDO RUIZ DO Oct 16, 2017 16:54
[2017-10-17] MEDS ORDERED: KCL 20 MEQ TAB (K-DUR) PO SCH (07:00)
== END 2017-10-16 13:40 | disposition home or self-care (01) | DRG 392 ==
LOC: EDUNIT# 00:08 → ER 00:10 → 4TH 02:30
PROVIDERS: ADMIT Surgery; ATTEND Surgery
DX: K57.92 Diverticulitis of intestine, part unspecified, without perforation or abscess without bleeding (principal); N39.0 Urinary tract infection, site not specified; I25.119 Atherosclerotic heart disease of native coronary artery with unspecified angina pectoris; I25.2 Old myocardial infarction; E78.2 Mixed hyperlipidemia; E11.40 Type 2 diabetes mellitus with diabetic neuropathy, unspecified; G43.909 Migraine, unspecified, not intractable, without status migrainosus; K21.9 Gastro-esophageal reflux disease without esophagitis; K22.70 Barrett's esophagus without dysplasia; K63.5 Polyp of colon; M19.91 Primary osteoarthritis, unspecified site; M54.9 Dorsalgia, unspecified; G47.9 Sleep disorder, unspecified; E66.9 Obesity, unspecified; D64.9 Anemia, unspecified; E87.6 Hypokalemia; J45.909 Unspecified asthma, uncomplicated; Z86.718 Personal history of other venous thrombosis and embolism; Z79.01 Long term (current) use of anticoagulants; Z79.84 Long term (current) use of oral hypoglycemic drugs; Z68.30 Body mass index [BMI] 30.0-30.9, adult; Z96.641 Presence of right artificial hip joint; Z87.891 Personal history of nicotine dependence; Z86.19 Personal history of other infectious and parasitic diseases
CPT/HCPCS: 36415; 74022; 74176; 80048; 80053; 81000; 82150; 83605; 83690; 85025; 85027; 87040; 87088; 96361; 96365; 96375

== ENCOUNTER → 2017-12-26 | Outpatient (CLI) | payer MEDICARE, MEDICAID ==
[~2017-12-26] MED LIST changes: +AMOX-358 PO; +APIX5TAB PO; +CELE-63 PO; +GABA-488 PO; +MELA5TAB14 PO; +MELA5TAB19 PO; +METF-397 PO; +NITR-65 PO; +NITR0.4T42 SL; +OXYC-529 PO; +PHEN-640 PO; +POTA10TA36 PO
--- NOTE | 2017-12-26 14:06 | Diagnostic Imaging Report ---
PROCEDURE: CT chest without contrast. TECHNIQUE: Multiple contiguous axial images were obtained through the chest without the use of intravenous contrast. INDICATION: Fall two weeks ago onto the right side with continued right-sided chest pain. COMPARISON: No prior studies are available for comparison. No axillary lymphadenopathy is seen. There are mildly prominent lymph nodes in the mediastinum. Precarinal node measures approximately 1.9 x 1.2 cm. Shelia are difficult to evaluate without intravenous contrast. There are coronary arterial calcifications present. No pericardial or pleural fluid is identified. There is linear parenchymal density in the right lower lobe consistent with scarring or subsegmental atelectasis. No pneumothorax or pulmonary contusion is identified. Bony structures appear nonacute. No rib fracture is seen. Upper abdomen is unremarkable. IMPRESSION: Essentially unremarkable noncontrast CT of the chest apart from mildly prominent mediastinal lymph nodes. No acute feature is detected. Dictated by: Dictated on workstation # [id number]
== END ==
LOC: RAD 13:13
PROVIDERS: ATTEND Nurse Practitioner Family
DX: R07.89 Other chest pain (principal); W19.XXXA Unspecified fall, initial encounter
CPT/HCPCS: 71250

== ENCOUNTER 2018-01-24 05:47 | Outpatient (CLI) | payer MEDICARE, MEDICAID ==
[~2018-01-24] VITALS: Ht 172.7 cm; Wt 89.8 kg
[2018-01-24] MEDS ORDERED: VITA40TA PO (10:23)
[2018-01-24] MEDS ORDERED: CINN500C2 PO (10:23)
[2018-01-24] MEDS ORDERED: CYCL10TA9 PO (10:23)
== END 2018-01-24 10:24 | disposition home or self-care (01) ==
LOC: PREOP 05:47
PROVIDERS: ATTEND Surgery
DX: Z01.818 Encounter for other preprocedural examination (principal)

== ENCOUNTER 2018-02-18 07:47 | Day surgery (SDC) | payer MEDICARE, MEDICAID ==
[~2018-02-18] VITALS: Ht 172.7 cm; Wt 89.8 kg
[~2018-02-18 07:47] MED LIST changes: +CINN500C2 PO; +VITA40TA PO
[2018-02-18] MEDS ORDERED: LACTATED RINGERS 1,000 ML IV ONE (07:54)
[2018-02-18] MEDS ORDERED: ceFAZolin 2 GM IV Premixed 50 ML ONE (08:12)
--- OUTSIDE RECORDS SUMMARY | 2018-02-18 08:18 | XMS REPORT | Clinical Summary ---
Author Author [facility] Organization [facility] Address Unknown Phone Unavailable Care Team Providers Care Private [employer] Executive Name Role Phone Chrissy Bui MD Unavailable Unavailable Arnoldo Osorio MD Unavailable Presley Soria APRN PCP Wendie Mina MD Unavailable Isaac Moore DO Unavailable Unavailable Sandra Lowe RN Unavailable Unavailable Source Comments Some departments are not documenting in the electronic medical record. If you do not see the information that you expected, contact Release of Information in the Health Information Management department at [phone] for further assistance in locating additional records.[facility] Allergies Active Allergy Reactions Severity [...] C SCREENING 1945 PHYSICAL (COMPREHENSIVE) 1954 EXAM DTAP/TDAP VACCINES (1 - 1965 Tdap) BREAST CANCER SCREENING 1987 COLORECTAL CANCER 1997 SCREENING SHINGLES RECOMBINANT 1997 VACCINE (1 of 2) OSTEOPOROSIS 2012 SCREENING/MONITORING PNEUMONIA (PCV13/PPSV23) 2012 VACCINES (1 of 2 - PCV13) INFLUENZA VACCINE 10/23/2017 Results Not on filefrom Last 3 Months
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
--- OUTSIDE RECORDS SUMMARY | 2018-02-18 08:19 | XMS REPORT ---
Author Author ERIC CUEVAS Organization [facility] [place] Address [address] [place] [address] Care Team Providers Care Academic Dean Name Role Phone FAITH ERIC Unavailable PROBLEMS Type Condition ICD9-CM Code HPW46-CM Code Onset Dates Condition Status SNOMED Code Problem Angina pectoris I20.9 Active 530369884 Problem Dyshidrotic eczema L30.1 Active 160185025 Problem Polyneuropathy G62.9 Active 12610170 Problem Diverticulitis K57.92 Active 092988995 Problem Other obesity due to excess calories E66.09 Active 300560759 Problem Body mass index (BMI) of 30.0-30.9 in adult Z68.30 Active 458608596 Problem Type 2 diabetes mellitus with diabetic neuropathic arthropathy, 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 Active 498709679 Problem Anxiety F41.9 Active 70959681 Problem Type 2 diabetes mellitus without complication, without long-term current use of insulin E11.9 Active 867395475 Problem GERD (gastroesophageal reflux disease) K21.9 Active 264484728 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 320514544 Problem CAD (coronary artery disease) I25.10 Active 72740807 Problem Trochanteric bursitis of right hip M70.61 Active [id number] Problem Syndrome X, 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 Active 307799128 Problem Seborrheic keratoses L82.1 Active 690606082 Problem Hyperlipidemia E78.5 Active 87265052 Problem Sciatica of right side M54.31 Active 52987855 Problem Vaginal cancer C52 Active 608951077 ALLERGIES No Information ENCOUNTERS Encounter Location Date Diagnosis [facility] [place] [address] [id number] [address] Jan, [facility] [place] [address] [id number] [address] Dec, [facility] [address] [address] Nov, Contusion of rib on right side, initial encounter S20.211A [facility] [place] [id number] [place] [address] 25495- 8892 Nov, [facility] [place] [id number] [place] [address] 42035- 0859 Oct, Onychocryptosis L60.0 and Onychomycosis B35.1 [place] [id number] [place] [address] 21113- 1371 Oct, Onychomycosis B35.1 ; Onychocryptosis L60.0 and Type 2 diabetes mellitus without complication, without long-term current use of insulin E11.9 [place] [id number] [place] [address] 28356- 5746 Sep, Diverticulitis K57.92 [place] [id number] [place] [address] 00100- 2146 Sep, Diverticulitis K57.92 [place] [id number] [place] [address] 60262- 7860 Sep, [facility] [id number] [place] [address] 91703 -4171 Sep, Diarrhea, unspecified type R19.7 [place] [id number] [place] [address] 41692- 4760 Sep, [place] [id number] [place] [address] 57740- 1280 Sep, Pain in right hip M25.551 [place] [id number] [place] [address] 48932- 0392 Sep, [facility] [place] [id number] [place] [address] 75343- 7147 Aug, Acute cystitis with hematuria N30.01 [place] [id number] [place] [address] 77707- 2402 29 Aug, 2017 Type 2 diabetes mellitus without complication, [...] Angina pectoris I20.9 and Vaginal cancer C52 [place] [address] 97136- 3286 Aug, [place] [address] 39412- 1914 Aug, [place] [address] 80923- 3092 05 Aug, 2017 Vaginal candidiasis B37.3 and Vaginal itching L29.8 [place] [address] 36571- 0943 Aug, Dysuria R30.0 and Acute cystitis with hematuria N30.01 [place] [address] 85834- 4950 July, [place] [address] 86356- 6372 July, [place] [address] 87214- 5830 July, [place] [address] 96491- 9799 Jun, [place] [id number] [place] [address] 34114- 7733 Jun, [facility] [address] [address] -3287 Jun, Right anterior knee pain M25.561 [place] [address] 29861- 8112 Jun, [place] [address] 79565- 2425 Jun, Type 2 diabetes mellitus with diabetic neuropathic arthropathy, 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 [place] [address] 18313- 4709 May, Acute non-recurrent maxillary sinusitis J01.00 and Acute suppurative otitis media of left ear without spontaneous rupture of tympanic membrane, recurrence not specified H66.002 [facility] [id number] [place] [address] 64942 -0055 May, Viral upper respiratory tract infection J06.9 [place] [address] 90942- 9954 Apr, [place] [address] 83373- 8447 Apr, Type 2 diabetes mellitus with diabetic [...] index (BMI) of 32.0-32.9 in adult Z68.32 [place] [address] 31817- 2850 Apr, Type 2 diabetes mellitus without complication, without long- term current use of insulin E11.9 [place] [address] 95954- 4641 Apr, Papule R23.8 and Actinic keratosis L57.0 [facility] [id number] [place] [address] 44694 -7112 11 Mar, 2017 Cough R05 ; Encounter for immunization Z23 ; Other viral agents as the cause of diseases classified elsewhere B97.89 and Acute upper respiratory infection, unspecified J06.9 [place] [address] 66332- 4560 14 Jan, 2017 Migraine without status migrainosus, not intractable, unspecified migraine type G43.909 [place] [address] 11971- 6117 Sep, [place] [address] 08521- 5584 Sep, Type 2 diabetes mellitus without complication, without long- term current use of insulin E11.9 ; Dehydration, mild E86.0 and Dyshidrotic eczema L30.1 [place] [id number] [place] [address] 49442- 8684 Sep, [place] [address] 47697- 3852 Aug, Migraine without status migrainosus, not intractable, unspecified migraine type G43.909 [place] [address] 06110- 0029 July, [place] [address] 60373- 3157 Jun, Medicare annual wellness visit, subsequent Z00.00 ; Hyperlipidemia E78.5 ; CAD (coronary artery disease) I25.10 and Vaginal cancer C52 [address] 25368- 1492 Jun, Sciatica M54.30 ; Pain in right hip M25.551 ; Dyshidrotic eczema L30.1 ; Candidiasis of breast B37.89 ; Right anterior knee pain M25.561 ; Hyperlipidemia E78.5 and Encounter for immunization Z23 [facility] [place] [id number] [place] [address] 68455- 7141 16 May, 2016 Ganglion cyst of joint of finger of left hand M67.442 [facility] [place] [id number] [place] [address] 99187- 7782 15 May, 2016 Migraine without status migrainosus, not intractable, unspecified migraine type G43.909 [place] [id number] [place] [address] 43172- 0093 May, [facility] [place] [id number] [place] [address] 19443- 5792 Apr, Skin lesion of back L98.9 and Encounter for immunization Z23 [facility] [place] [id number] [place] [address] 64616- 3729 Mar, Candidal dermatitis B37.2 ; Seborrheic keratoses L82.1 ; Polyneuropathy G62.9 and Dysuria R30.0 [facility] [id number] [place] [address] [id number] Mar, Dental examination Z01.20 [place] [id number] [place] [address] 22168- 3492 Mar, Neuritis M79.2 [place] [id number] [place] [address] 69602- 5603 Feb, Drug allergy Z88.9 [facility] [place] [id number] [place] [address] 84320- 2563 Feb, Dysuria R30.0 [facility] [place] [address] 88879- 8858 Feb, Acute cystitis with hematuria N30.01 [facility] [place] [id number] [place] [address] 74727- 9765 Feb, Dysuria R30.0 and Acute cystitis with hematuria N30.01 [facility] [place] [address] [place] [address] 39984- 8223 06 Feb, 2016 Angina pectoris I20.9 ; Finger pain, left M79.645 ; 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 ; GERD (gastroesophageal reflux disease) K21.9 ; Pain in right hip M25.551 ; Pain in left hip M25.552 and Encounter for screening mammogram for breast cancer Z12.[address] 58622- 1982 Dec, Right hip pain M25.[address] 80572- 1507 13 Nov, 2015 GERD (gastroesophageal reflux disease) K21.9 ; Vaginal cancer C52 ; Pain in right hip M25.551 and Pain in left hip M25.[address] 79820- 7285 Oct, Squamous cell carcinoma C80.[address] 52859- 0895 Oct, Skin lesions L98.9 and Encounter for well woman exam Z01.[address] 24327- 3996 Oct, [address] 20206- 1545 Sep, [facility] [place] [address] [id number] [place] [address] 10194 -6672 Aug, Atopic dermatitis, unspecified type L20.9 and Tick bite, initial encounter W57.XXXA [facility] [address] [address]60 -[address]90 Aug, [address] 31965- 0479 July, Pre-procedural laboratory examination Z01.[address] 20599- 5049 July, Migraine without status migrainosus, not intractable, unspecified migraine type G43.909 ; Barretts esophagus without dysplasia K22.70 ; Sciatic nerve pain, left M54.32 and Localized swelling, mass and lump, head R22.0 [facility] [place] [address] [place] [address] 80356- 4647 May, [facility] [place] [address] 04537- 0368 May, [facility] [id number] [place] [address] 98871 -3519 May, Unspecified fall, initial encounter W19.XXXA ; Unspecified place in unspecified non-institutional (private) residence as the place of occurrence of the external cause Y92.009 ; Mid back pain M54.9 ; Rib pain on right side R07.81 ; Buttock pain M79.1 and Post-traumatic headache, unspecified , not intractable G44.309 [place] [id number] [place] [address] 07608- 1251 Apr, Hypercholesteremia E78.0 ; Chest discomfort R07.89 ; 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 and History of sciatica Z86.69 [place] [id number] [place] [address] 36189- 8882 Mar, Calculus of left kidney N20.0 ; Hyperlipidemia E78.5 ; Degeneration disease of medial meniscus, 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 ; Right knee pain M25.561 ; Sciatica M54.30 ; GERD (gastroesophageal reflux disease) K21.9 and 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 [place] [id number] [place] [address] 47249- 6689 Mar, [place] [id number] [place] [address] 66003- 8732 Mar, [place] [address] [place] [address] 08140- 2816 Mar, [facility] [address] [address]- 8925 Mar, Plantar fasciitis M72.[address] 21090- 1853 Mar, Degeneration disease of medial meniscus, 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 ; Right knee pain M25.561 ; Sciatica M54.30 ; GERD ( gastroesophageal reflux disease) K21.9 and 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 93880- 1462 Feb, [address] 59173- 4270 Feb, Osteopenia M85.[address] 21453- 1675 Feb, Screening for malignant neoplasm of breast Z12.39 and Encounter for screening mammogram for malignant neoplasm of breast Z12.[address] 94944- 5897 Feb, Hip pain M25.[address] 93289- 1577 Feb, [address] 15229- 9320 Feb, Arthralgia of right hip M25.551 ; Sciatica M54.30 ; GERD ( gastroesophageal reflux disease) K21.9 ; 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 ; CAD ( coronary artery disease) I25.10 and Hyperlipidemia 272.4 [facility] [address] 79420 -9902 Jan, Pharyngitis J02.9 ; Body aches R52 ; Cough R05 and Sinusitis J32.[address] 96591- 1680 11 Nov, 2014 Contusion of foot 924.20 [address]28.[address] [facility] [address] [id number] Oct, Dental examination V72.2 [facility] [place] [id number] [place] [address] 87453 2546 Oct, [facility] [place] [id number] [place] [address] 68969- 2546 Oct, Coronary artery disease 414.00 [facility] [place] [id number] [place] [address] 94623- 2546 Oct, Zoster 053.9 [facility] [place] [id number] [place] [address] 97009- 1596 Sep, Pain in joint, ankle and foot 719.47 ; 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.85 ; Cervicalgia 723.1 ; Pain in joint, shoulder region 719.41 ; Coronary artery disease 414.00 and Need for shingles vaccine V04.89 [facility] [id number] [place] [address] [id number] Sep, Dental examination V72.2 [facility] [place] [id number] [place] [address] 96584- 8516 Sep, [facility] [place] [id number] [place] [address] 65431- 3536 Aug, [facility] [id number] [place] [address] [id number] July, Dental examination V72.2 [facility] [place] [id number] [place] [address] 97371- 8016 July, Cough 786.2 [facility] [place] [id number] [place] [address] 47421- 9656 July, Sinusitis 473.9 and Means esophagus 530.85 [facility] [place] [id number] [place] [address] 28945 2546 Jun, [facility] [place] [id number] [place] [address] 73716- 4092 Jun, [facility] [place] [facility] [address] [id number] [place] [address]- 0277 May, [facility] [place] [facility] [address] [id number] [place] [address]- 5548 May, [facility] [place] [facility] [address] [id number] [place] [address]- 6009 May, [facility] [place] [facility] [address] [id number] [place] [address]- 6146 May, [facility] [place] [facility] [address] [id number] [place] [address]- 9326 May, [facility] [place] [facility] [address] [id number] [place] [address]- 9278 May, [facility] [place] [facility] [address] [id number] [place] [address]- 5516 May, [facility] [place] [facility] [address] [id number] [place] [address]- 5018 May, [facility] [place] [facility] [address] [id number] [place] [address]- 6770 Apr, [facility] [place] [facility] [address] [id number] [place] [address]- 8901 Apr, [facility] [place] [facility] [address] [id number] [address]- 2813 Apr, [facility] [place] [facility] [address] [id number] [place] [address]- 2371 Mar, [facility] [place] [facility] [address] [id number] [place] [address]- 2367 Mar, [facility] [place] [facility] [address] [id number] [address]- 8023 Mar, [facility] [place] [facility] [address] [id number] [place] [address]- 9730 Mar, [facility] [place] [facility] [address] [id number] [place] [address]- 5407 Feb, [facility] [place] [facility] [address] [id number] [place] [address]- 7254 Feb, [facility] [place] [facility] [address] [id number] [place] 5175 Feb, [facility] [place] [facility] [address] [id number] [place] [address]- 0883 Feb, [facility] [place] [facility] [address] [id number] [place] [address]- 1091 Feb, [facility] [place] [facility] [address] [id number] [place] 8789 Feb, [facility] [place] [facility] [address] [id number] [place] [address]- 4737 Feb, [facility] [place] [facility] [address] [id number] [place] [address]- 5140 Jan, [facility] [place] [facility] [address] [id number] [place] [address]- 0963 Jan, [facility] [place] [facility] [address] [id number] [place] [address]- 1518 Jan, [facility] [place] [facility] [address] [id number] [place] [address]- 0363 Jan, [facility] [place] [facility] [address] [id number] [place] [address]- 1789 Dec, [facility] [place] [facility] [address] [id number] [place] [address]- 3221 Dec, [facility] [place] [facility] [address] [id number] [place] [address]- 2087 Dec, [facility] [place] [facility] [address] [id number] [place] [address]- 0156 Dec, [facility] [place] [facility] [address] [id number] [place] 7170 Dec, [facility] [place] [facility] [address] [id number] [place] [address]- 6179 16 Dec, 2013 [facility] [place] [facility] [address] [id number] [place] [address]- 5373 24 Nov, 2013 [facility] [place] [facility] [address] [id number] [place] [address]- 1338 23 Nov, 2013 [facility] [place] [facility] [address] [id number] [place] [address]- 3258 23 Nov, 2013 [facility] [place] [facility] [address] [id number] [place] [address]- 2105 17 Nov, 2013 [facility] [place] [facility] [address] [id number] [place] [address]- 9911 17 Nov, 2013 [facility] [place] [facility] [address] [id number] [place] [address]- 6825 05 Nov, 2013 [facility] [place] [facility] [address] [id number] [place] [address]- 9876 05 Nov, 2013 [facility] [place] [facility] [address] [id number] [place] [address]- 1261 Oct, [facility] [place] [facility] [address] [id number] [place] [address]- 6296 Oct, [facility] [place] [facility] [address] [id number] [place] [address]- 1859 Oct, [facility] [place] [facility] [address] [id number] [place] [address]- 2552 Oct, [facility] [place] [facility] [address] [id number] [place] [address]- 8838 Oct, [facility] [place] [facility] [address] [id number] [place] [address]- 8308 Oct, [facility] [place] [facility] [address] [id number] [place] [address]- 7854 Oct, [facility] [place] [facility] [address] [id number] [place] [address]- 3295 Oct, [facility] [place] [facility] [address] [id number] [place] [address]- 7761 Oct, [facility] [place] [facility] [address] [id number] [place] [address]- 9476 Sep, [facility] [place] [facility] [address] [id number] [place] [address]- 8066 Sep, [facility] [place] [facility] [address] [id number] [place] [address]- 0785 Sep, [facility] [place] [facility] [address] [id number] [place] [address]- 7614 Sep, [facility] [place] [facility] [address] [id number] [place] [address]- 0565 Sep, [facility] [place] [facility] [address] [id number] [place] [address]- 4904 Sep, [facility] [place] [facility] [address] [id number] [place] [address]- 9156 Sep, [facility] [place] [facility] [address] [id number] [place] [address]- 8861 Sep, [facility] [place] [facility] [address] [id number] [place] [address]- 1190 Sep, [facility] [place] [facility] [address] [id number] [place] [address]- 3285 Aug, [facility] [place] [facility] [address] [id number] [place] [address]- 0303 Aug, [facility] [place] [facility] [address] [id number] [place] 8746 Jun, [facility] [place] [facility] [address] [id number] [place] [address]- 9677 Jun, [facility] [place] [facility] [address] [id number] [place] 6436 May, [facility] [place] [facility] [address] [id number] [place] [address]- 2722 May, [facility] [place] [facility] [address] [id number] [place] [address]- 3137 Apr, [facility] [place] [facility] [address] [id number] [place] [address]- 4416 Apr, [facility] [place] [facility] [address] [id number] [place] [address] Apr, [facility] [place] [facility] [address] [id number] [place] [address] Apr, [facility] [place] [facility] [address] [id number] [place] [address] Feb, [facility] [place] [facility] [address] [id number] [place] [address] Feb, [facility] [place] [facility] [address] [id number] [place] [address] Jan, [facility] [place] [facility] [address] [id number] [place] [address] Jan, [facility] [place] [facility] [address] [id number] [place] [address] Nov, [facility] [place] [facility] [address] [id number] [place] [address] Sep, [facility] [place] [facility] [address] [id number] [place] [address] Sep, [facility] [place] [facility] [address] [id number] [place] [address] Aug, [facility] [place] [facility] [address] [id number] [place] [address] Aug, [facility] [place] [facility] [address] [id number] [place] [address] 07 Aug, 2012 [facility] [place] [facility] [address] [id number] [place] [address] July, [facility] [place] [facility] [address] [id number] [place] [address] July, [facility] [place] [facility] [address] [id number] [place] [address] July, [facility] [place] [facility] [address] [id number] [place] [address] May, [facility] [place] [facility] [address] [id number] [place] [address] May, [facility] [place] [facility] [address] [id number] [place] [address] Jan, [facility] [place] [facility] [address] [id number] [place] [address] Jan, [facility] [place] [facility] [address] [id number] [place] [address] Jan, [facility] [place] [facility] [address] [id number] [address] Jan, [facility] [place] [facility] [address] [id number] [place] [address] Jan, [facility] [place] [facility] [address] [id number] [place] [address] Jan, [facility] [place] [facility] [address] [id number] [place] [address] Jan, [facility] [place] [facility] [address] [id number] [place] [address] Jan, [facility] [place] [facility] [address] [id number] [place] [address] Dec, [facility] [place] [facility] [address] [id number] [address] Dec, [facility] [place] [facility] [address] [id number] [place] [address] Aug, [facility] [place] [facility] [address] [id number] [place] [address] July, [facility] [place] [address] [id number] [place] [address] Jun, [facility] [place] [address] [id number] [place] [address] May, [facility] [place] [address] [id number] [address] May, [facility], [place], [facility] [address] [id number] [id number] May, [facility] [place] [address] [id number] [id number] Jun, IMMUNIZATIONS No Known Immunizations SOCIAL HISTORY Never Assessed REASON FOR VISIT Rx faxed PLAN OF CARE VITAL SIGNS MEDICATIONS Medication Instructions Dosage Frequency Start Date End Date Duration Status Terbinafine HCl 250 MG Orally Once a day 1 tablet 24h Oct,Nov 30 days Active RESULTS No Results PROCEDURES No [...] 2016 Surgical History Hip Surgery July 16, 2017 2018 Hospitalization History fell on ice and broke left arm-ER visit 02/2013 Hospitalization History Hip Surgery 07/16/2017 Hospitalization History Diverticulitis 09/2017
--- OUTSIDE RECORDS SUMMARY | 2018-02-18 08:19 | XMS REPORT ---
Author Author JANES Ram [facility] Address [address] [place] [address] Care Team Providers Care Diesel Instructor Name Role Phone JANES Ram Unavailable PROBLEMS ALLERGIES No Information ENCOUNTERS IMMUNIZATIONS No Known Immunizations SOCIAL HISTORY No smoking Hx information available REASON FOR VISIT PLAN OF CARE VITAL SIGNS MEDICATIONS Unknown Medications RESULTS No Results PROCEDURES No Known procedures INSTRUCTIONS MEDICATIONS ADMINISTERED No Known Medications MEDICAL (GENERAL) HISTORY
--- OUTSIDE RECORDS SUMMARY | 2018-02-18 08:20 | XMS REPORT ---
Author Author ERIC CUEVAS Organization [facility] Address [address] [place] [address] Care Team Providers Care Optometric Aide Name Role Phone FAITH ERIC Unavailable PROBLEMS Type Condition ICD9-CM Code [id number] Code Onset Dates Condition Status SNOMED Code Problem Angina pectoris I20.9 Active 614889154 Problem Dyshidrotic eczema L30.1 Active 804570488 Problem Polyneuropathy G62.9 Active 50142890 Problem Diverticulitis K57.92 Active 913426116 Problem Other obesity due to excess calories E66.09 Active 424948310 Problem Body mass index (BMI) of 30.0-30.9 in adult Z68.30 Active 080206428 Problem Type 2 diabetes mellitus with diabetic neuropathic arthropathy, 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 Active 094403721 Problem Anxiety F41.9 Active 80470960 Problem Type 2 diabetes mellitus without complication, without long-term current use of insulin E11.9 Active 644704363 Problem GERD (gastroesophageal reflux disease) K21.9 Active 238335333 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 388202065 Problem CAD (coronary artery disease) I25.10 Active 45941769 Problem Trochanteric bursitis of right hip M70.61 Active [id number] Problem Syndrome X, 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 Active 889228947 Problem Seborrheic keratoses L82.1 Active 325535970 Problem Hyperlipidemia E78.5 Active 61442917 Problem Sciatica of right side M54.31 Active 15538834 Problem Vaginal cancer C52 Active 158478546 ALLERGIES No Information ENCOUNTERS Encounter Location Date Diagnosis [facility] [address] [facility] [id number] [address] Jan, [facility] [address] [facility] [id number] [address] Dec, [place] [address] [place] [id number] [place] [address] 94972- 9110 Oct, Onychocryptosis L60.0 and Onychomycosis B35.1 [facility] [address] [id number] [place] [address] 44370- 6952 Oct, Onychomycosis B35.1 ; Onychocryptosis L60.0 and Type 2 diabetes mellitus without complication, without long-term current use of insulin E11.9 [place] [id number] [place] [address] 22928- 9778 Sep, Diverticulitis K57.92 [place] [address] [id number] [place] [address] 42336- 1266 Sep, Diverticulitis K57.92 [place] [address] [id number] [place] [address] 96409- 0299 Sep, [facility] [id number] [place] [address] 98703 -3109 Sep, Diarrhea, unspecified type R19.7 [place] [id number] [place] [address] 76897- 1188 Sep, [place] [address] [id number] [place] [address] 87909- 0726 Sep, Pain in right hip M25.551 [place] [address] [id number] [place] [address] 15580- 3606 Sep, [place] [address] [id number] [place] [address] 41118- 0613 Aug, Acute cystitis with hematuria N30.01 [place] [address] [id number] [place] [address] 66842- 0525 Aug, Type 2 diabetes mellitus without complication, [...] Angina pectoris I20.9 and Vaginal cancer C52 [place] [address] 85083- 0285 Aug, [facility] [address] 25199- 8827 Aug, [place] [address] 76120- 0797 Aug, Vaginal candidiasis B37.3 and Vaginal itching L29.8 [place] [address] 33752- 8393 Aug, Dysuria R30.0 and Acute cystitis with hematuria N30.01 [place] [address] [id number] [place] [address] 48830- 4118 July, [place] [address] 82916- 4106 July, [facility] [id number] [place] [address] 33672- 2362 July, [place] [id number] [place] [address] 46957- 1874 Jun, [facility] [id number] [place] [address] 73701- 9881 Jun, 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 [place] [id number] [place] [address] 00462- 9834 May, Acute non-recurrent maxillary sinusitis J01.00 and Acute suppurative otitis media of left ear without spontaneous rupture of tympanic membrane, recurrence not specified H66.002 [facility] IN [place] [id number] [place] [address] 40306 -2481 May, Viral upper respiratory tract infection J06.9 [place] [id number] [place] [address] 47415- 9122 Apr, [place] [address] 91670- 8758 Apr, Type 2 diabetes mellitus with diabetic [...] index (BMI) of 32.0-32.9 in adult Z68.32 [place] [id number] [place] [address] 07091- 1134 09 Apr, 2017 Type 2 diabetes mellitus without complication, without long- term current use of insulin E11.9 [place] [id number] [place] [address] 28473- 9834 02 Apr, 2017 Papule R23.8 and Actinic keratosis L57.0 [facility] [place] [id number] [place] [address] 74545 -0233 Mar, Cough R05 ; Encounter for immunization Z23 ; Other viral agents as the cause of diseases classified elsewhere B97.89 and Acute upper respiratory infection, unspecified J06.9 [place] [id number] [place] [address] 25316- 4077 14 Jan, 2017 Migraine without status migrainosus, not intractable, unspecified migraine type G43.909 [place] [id number] [place] [address] 51893- 1106 Sep, [place] [address] 09752- 0781 Sep, Type 2 diabetes mellitus without complication, without long- term current use of insulin E11.9 ; Dehydration, mild E86.0 and Dyshidrotic eczema L30.[address] 68977- 1332 Sep, [address] 66858- 2388 Aug, Migraine without status migrainosus, not intractable, unspecified migraine type G43.909 [place] [address] [id number] [place] [address] 61856- 2480 July, [address] 74082- 0681 Jun, Medicare annual wellness visit, subsequent Z00.00 ; Hyperlipidemia E78.5 ; CAD (coronary artery disease) I25.10 and Vaginal cancer C52 [address] 65740- 6394 Jun, Sciatica M54.30 ; Pain in right hip M25.551 ; Dyshidrotic eczema L30.1 ; Candidiasis of breast B37.89 ; Right anterior knee pain M25.561 ; Hyperlipidemia E78.5 and Encounter for immunization Z23 [place] [id number] [place] [address] 60522- 3596 16 May, 2016 Ganglion cyst of joint of finger of left hand M67.[address] 85319- 5590 May, Migraine without status migrainosus, not intractable, unspecified migraine type G43.909 [place] [id number] [place] [address] 78830- 5385 May, [place] [address] 54811- 1592 09 Apr, 2016 Skin lesion of back L98.9 and Encounter for immunization Z23 [place] [id number] [place] [address] 25348- 2171 Mar, Candidal dermatitis B37.2 ; Seborrheic keratoses L82.1 ; Polyneuropathy G62.9 and Dysuria R30.0 [facility] [address] [id number] [place] [address] [id number] Mar, Dental examination Z01.[address] 86682- 6144 Mar, Neuritis M79.2 [place] [address] 34130- 5874 Feb, Drug allergy Z88.9 [place] [address] 63316- 6747 Feb, Dysuria R30.[address] 87275- 8464 Feb, Acute cystitis with hematuria N30.01 [place] [address] 26058- 7314 Feb, Dysuria R30.0 and Acute cystitis with hematuria N30.01 [place] [address] 01962- 6521 Feb, Angina pectoris I20.9 ; Finger pain, left M79.645 ; 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 ; GERD (gastroesophageal reflux disease) K21.9 ; Pain in right hip M25.551 ; Pain in left hip M25.552 and Encounter for screening mammogram for breast cancer Z12.31 [place] [address] 31724- 4517 26 Dec, 2015 Right hip pain M25.551 [place] [address] 67407- 6371 13 Nov, 2015 GERD (gastroesophageal reflux disease) K21.9 ; Vaginal cancer C52 ; Pain in right hip M25.551 and Pain in left hip M25.552 [place] [address] 96963- 5816 19 Oct, 2015 Squamous cell carcinoma C80.[address] 01133- 3241 11 Oct, 2015 Skin lesions L98.9 and Encounter for well woman exam Z01.[address] 12206- 8421 Oct, [place] [address] 08884- 9121 Sep, [facility] IN [address] 18289 -0672 Aug, Atopic dermatitis, unspecified type L20.9 and Tick bite, initial encounter W57.XXXA [facility] IN [address] 55359 -8320 Aug, [place] [address] 70431- 4443 July, Pre-procedural laboratory examination Z01.812 [place] [address] 73633- 2132 July, Migraine without status migrainosus, not intractable, unspecified migraine type G43.909 ; Barretts esophagus without dysplasia K22.70 ; Sciatic nerve pain, left M54.32 and Localized swelling, mass and lump, head R22.[address] 91691- 0529 May, [facility] [id number] [place] [address] 21244- 6837 May, [facility] IN [facility] [id number] [place] [address] 13213 -6241 May, Unspecified fall, initial encounter W19.XXXA ; Unspecified place in unspecified non-institutional (private) residence as the place of occurrence of the external cause Y92.009 ; Mid back pain M54.9 ; Rib pain on right side R07.81 ; Buttock pain M79.1 and Post-traumatic headache, unspecified , not intractable G44.309 [place] [address] 77979- 8653 10 Apr, 2015 Hypercholesteremia E78.0 ; Chest discomfort R07.89 ; 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 and History of sciatica Z86.69 [place] [address] 58707- 8948 Mar, Calculus of left kidney N20.0 ; Hyperlipidemia E78.5 ; Degeneration disease of medial meniscus, 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 ; Right knee pain M25.561 ; Sciatica M54.30 ; GERD (gastroesophageal reflux disease) K21.9 and 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 [place] [address] [id number] [place] [address] 55132- 3307 Mar, [place] [address] [id number] [place] [address] 63859- 2575 Mar, [place] [address] [id number] [place] [address] 45144- 9071 Mar, [place] [address] 16209- 4120 Mar, Plantar fasciitis M72.2 [place] [address] [id number] [place] [address] 42398- 4829 Mar, Degeneration disease of medial meniscus, 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 ; Right knee pain M25.561 ; Sciatica M54.30 ; GERD ( gastroesophageal reflux disease) K21.9 and 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4 [facility] IN [facility] [address] 01537 -6837 Jan, Pharyngitis J02.9 ; Body aches R52 ; Cough R05 and Sinusitis J32.[address] 49810- 8488 Nov, Contusion of foot 924.20 and Plantar fasciitis 728.71 [facility] [address] [id number] Oct, Dental examination V72.[address] 28630- 5797 Oct, [facility] [address] [place] [address]- 7106 Oct, Coronary artery disease 414.00 [facility] [address] [id number] [place] [address] 75404- 5026 Oct, Zoster 053.9 [facility] [address] [id number] [place] [address] 16786- 5466 Sep, Pain in joint, ankle and foot 719.47 ; 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.85 ; Cervicalgia 723.1 ; Pain in joint, shoulder region 719.41 ; Coronary artery disease 414.00 and Need for shingles vaccine V04.89 [facility] [id number] [place] [address] [id number] Sep, Dental examination V72.2 [facility] [id number] [place] [address] 95750 2546 Sep, [facility] [id number] [place] [address] 25498- 4606 Aug, [facility] [id number] [place] [address] [id number] July, Dental examination V72.2 [facility] [id number] [place] [address] 75467- 6796 July, Cough 786.2 [facility] [address] [address] [id number] [place] [address] 37448- 6150 July, Sinusitis 473.9 and Means esophagus 530.85 [facility] [id number] [place] [address] 94426- 9996 Jun, [facility] [id number] [place] [address] 82460- 1516 Jun, [facility] [id number] [place] [address] 86302- 7976 May, [facility] [address] [address] 2546 May, [facility] [address] [place] [id number] [place] [address]- 0593 May, [facility] [place] [facility] [address] [id number] [place] [address]- 9804 May, [facility] [place] [facility] [address] [id number] [place] [address]- 0229 May, [facility] [place] [facility] [address] [id number] [place] [address]- 3372 May, [facility] [place] [facility] [address] [id number] [place] [address]- 4417 May, [facility] [place] [facility] [address] [id number] [place] [address]- 3671 May, [facility] [place] [facility] [address] [id number] [place] [address]- 2461 Apr, [facility] [place] [facility] [address] [id number] [place] [address]- 5355 Apr, [facility] [place] [facility] [address] [id number] [place] [address]- 2245 Apr, [facility] [place] [facility] [address] [id number] [place] [address]- 6317 Mar, [facility] [place] [facility] [address] [id number] [place] [address]- 1694 Mar, [facility] [place] [facility] [address] [id number] [place] [address]- 4581 Mar, [facility] [place] [facility] [address] [id number] [place] [address]- 0637 Mar, [facility] [place] [facility] [address] [id number] [place] [address]- 2813 Feb, [facility] [place] [facility] [address] [id number] [place] [address]- 9416 Feb, [facility] [place] [facility] [address] [id number] [place] [address]- 4793 Feb, [facility] [place] [facility] [address] [id number] [place] [address]- 5060 Feb, [facility] [place] [facility] [address] [id number] [place] [address]- 8611 Feb, [facility] [place] [facility] [address] [id number] [place] 0663 Feb, [facility] [place] [facility] [address] [id number] [place] [address]- 8184 Feb, [facility] [place] [facility] [address] [id number] [place] [address]- 3168 Jan, [facility] [place] [facility] [address] [id number] [place] [address]- 1667 Jan, [facility] [place] [facility] [address] [id number] [place] [address]- 0947 Jan, [facility] [place] [facility] [address] [id number] [place] [address]- 3191 Jan, [facility] [place] [facility] [address] [id number] [place] [address]- 2013 Dec, [facility] [place] [facility] [address] [id number] [place] [address]- 2733 Dec, [facility] [place] [facility] [address] [id number] [place] [address]- 2784 Dec, [facility] [place] [facility] [address] [id number] [address]- 1575 Dec, [facility] [place] [facility] [address] [id number] [place] [address]- 1401 Dec, [facility] [place] [facility] [address] [id number] [place] 6371 Dec, [facility] [place] [facility] [address] [id number] [place]- 6909 24 Nov, 2013 [facility] [place] [facility] [address] [id number] [place] [address]- 1559 Nov, 2013 [facility] [place] [facility] [address] [id number] [place] [address]- 3818 23 Nov, 2013 [facility] [place] [facility] [address] [id number] [place] [address]- 7246 Nov, [facility] [place] [facility] [address] [id number] [place] [address]- 3786 Nov, [facility] [place] [facility] [address] [id number] [place] [address]- 7270 Nov, [facility] [place] [facility] [address] [id number] [place] [address]- 0604 Nov, [facility] [place] [facility] [address] [id number] [place] [address]- 3762 Oct, [facility] [place] [facility] [address] [id number] [place] [address]- 1461 Oct, [facility] [place] [facility] [address] [id number] [place] [address]- 9209 Oct, [facility] [place] [facility] [address] [id number] [place] [address]- 7068 Oct, [facility] [place] [facility] [address] [id number] [place] [address]- 1775 Oct, [facility] [place] [facility] [address] [id number] [place] [address]- 9641 Oct, [facility] [place] [facility] [address] [id number] [place] [address]- 9778 Oct, [facility] [place] [facility] [address] [id number] [place] [address]- 1456 Oct, [facility] [place] [facility] [address] [id number] [place] [address]- 2987 Oct, [facility] [place] [facility] [address] [id number] [place] [address]- 9191 Sep, [facility] [place] [facility] [address] [id number] [place] [address]- 5792 14 Sep, 2013 [facility] [place] [facility] [address] [id number] [place] [address]- 6393 Sep, 2013 [facility] [place] [facility] [address] [id number] [place] [address]- 1337 Sep, 2013 [facility] [place] [facility] [address] [id number] [place] [address]- 4386 Sep, 2013 [facility] [place] [facility] [address] [id number] [place] [address]- 5849 Sep, 2013 [facility] [place] [facility] [address] [id number] [place] [address]- 0419 Sep, 2013 [facility] [place] [facility] [address] [id number] [place] [address]- 8687 Sep, [facility] [place] [facility] [address] [id number] [place] [address]- 2539 Sep, [facility] [place] [facility] [address] [id number] [place] [address]- 5244 Aug, [facility] [place] [facility] [address] [id number] [place] [address]- 6859 Aug, [facility] [place] [facility] [address] [id number] [place] [address]- 6113 Jun, [facility] [place] [facility] [address] [id number] [place] [address]- 0656 Jun, [facility] [place] [facility] [address] [id number] [place] [address]- 0575 May, [facility] [place] [facility] [address] [id number] [place] [address]- 0302 May, [facility] [place] [facility] [address] [id number] [place] [address]- 8694 Apr, [facility] [place] [facility] [address] [id number] [place] [address]- 2762 Apr, [facility] [address] [id number] [place] [address]- 0364 Apr, [facility] [place] [facility] [address] [id number] [place] [address]- 5646 Apr, [facility] [address] [id number] [place] [address]- 0024 Feb, [facility] [place] [facility] [address] [id number] [place] [address]- 0731 Feb, [facility] [place] [facility] [address] [id number] [place] [address]- 4240 Jan, [facility] [place] [facility] [address] [id number] [place] 6389 Jan, [facility] [address] [id number] [place] [address]- 8244 Nov, [facility] [place] [facility] [address] [id number] [place] [address]- 2906 Sep, [facility] [place] [facility] [address] [id number] [place] [address] Sep, [facility] [place] [facility] [address] [id number] [place] [address] Aug, [facility] [place] [facility] [address] [id number] [place] [address] Aug, [facility] [place] [facility] [address] [id number] [place] [address] Aug, [facility] [place] [facility] [address] [id number] [place] [address] July, [facility] [place] [facility] [address] [id number] [place] [address] July, [facility] [place] [facility] [address] [id number] [place] [address] July, [facility] [place] [facility] [address] [id number] [place] [address] May, [facility] [address] [id number] [place] [address] May, [facility] [place] [facility] [address] [id number] [place] [address] Jan, [facility] [address] [id number] [place] [address] Jan, [facility] [place] [facility] [address] [id number] [place] [address] Jan, [facility] [address] [id number] [place] [address] Jan, [facility] [place] [facility] [address] [id number] [place] [address] Jan, [facility] [address] [id number] [place] [address] Jan, [facility] [address] [id number] [place] [address] Jan, [facility] [place] [facility] [address] [id number] [place] [address] Jan, [facility] [address] [id number] [place] [address] Dec, [facility] [place] [facility] [address] [id number] [place] [address] Dec, [facility] [place] [facility] [address] [id number] [place] [address] Aug, [facility] [place] [facility] [address] [id number] [place] [address] July, [facility] [place] [facility] [address] [id number] [place] [address] Jun, [facility] [place] [facility] [address] [id number] [place] [address] May, [facility] [address] [facility] [id number] [place] [address] May, [facility] [address] [facility] [id number] [place] [address] May, [facility] [address] [facility] [id number] [place] [address] Jun, 2008 IMMUNIZATIONS No Known Immunizations SOCIAL HISTORY Never Assessed REASON FOR VISIT dm foot care (last seen 04/01/2015) - TIFFANI Landaverde PLAN OF CARE Activity Details Follow Up 3 Months Reason: VITAL SIGNS Height 68 in 2017-11-01 Blood pressure systolic 128 mmHg 2017-11-01 Blood pressure diastolic 68 mmHg 2017-11-01 MEDICATIONS Unknown Medications RESULTS Name Result Date Reference Range LIVER PANEL (LFT) 2017-11-01 PROTEIN, TOTAL 7.2 6.1-8.1 ALBUMIN 4.1 3.6-5.1 GLOBULIN 3.1 1.9-3.7 ALBUMIN/GLOBULIN RATIO 1.3 1.0-2.5 BILIRUBIN, TOTAL 0.5 0.2-1.2 BILIRUBIN, DIRECT 0.1 < OR=0.2 BILIRUBIN, INDIRECT 0.4 0.2-1.2 ALKALINE PHOSPHATASE 72 33-130 AST 16 10-35 ALT 8 6-29 PROCEDURES Procedure Date Ordered Result Body Site LAB NOT BILLED BY [facility] Nov 01, 2017 VENIPUNCT, ROUTINE* Nov 01, 2017 [facility] VISIT ESTABLISHED PATIENT Nov 01, 2017 DEBRIDE NAIL, 1-5 Nov 01, 2017 INSTRUCTIONS MEDICATIONS ADMINISTERED No Known [...] surgery Surgical History tonsillectomy Surgical History appendectomy 1972 Surgical History partial hysterectomy--uterine fibroids 1989 Surgical [...]
--- OUTSIDE RECORDS SUMMARY | 2018-02-18 08:21 | XMS REPORT ---
Author Author JANES PECK Organization [facility] Address [address] [place] [address] Care Team Providers Care Attending Radiologist Name Role Phone JANES PECK Unavailable PROBLEMS Type Condition ICD9-CM Code [id number] Code Onset Dates Condition Status SNOMED Code Problem Angina pectoris I20.9 Active 840948213 Problem Dyshidrotic eczema L30.1 Active 300431135 Problem Polyneuropathy G62.9 Active 94082053 Problem Diverticulitis K57.92 Active 237713525 Problem Other obesity due to excess calories E66.09 Active 308513381 Problem Body mass index (BMI) of 30.0-30.9 in adult Z68.30 Active 284232849 Problem Type 2 diabetes mellitus with diabetic neuropathic arthropathy, 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 Active 677465135 Problem Anxiety F41.9 Active 02230383 Problem Type 2 diabetes mellitus without complication, without long-term current use of insulin E11.9 Active 780002508 Problem GERD (gastroesophageal reflux disease) K21.9 Active 246402846 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 637610829 Problem CAD (coronary artery disease) I25.10 Active 88712735 Problem Trochanteric bursitis of right hip M70.61 Active [id number] Problem Syndrome X, 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 Active 873690908 Problem Seborrheic keratoses L82.1 Active 582269152 Problem Hyperlipidemia E78.5 Active 57136967 Problem Sciatica of right side M54.31 Active 85625158 Problem Vaginal cancer C52 Active 806796442 ALLERGIES Substance Reaction Event Type Date Status Pentazocine-Naloxone itching Drug Allergy Sep, Active Cipro Unknown Drug Allergy Sep, Active Actifed palpitations Drug Allergy Sep, Active Oxycodone unable to take more than 1 Drug Allergy Sep, Active Morphine Abdominal pain with IV form Drug Allergy Sep, Active ENCOUNTERS Encounter Location Date Diagnosis [facility] [id number] [place] [address] 67673- 1760 Jan, [facility] [id number] [place] [address] 48052- 2356 Dec, [facility] [id number] [place] [address] 20296- 4290 Oct, Onychocryptosis L60.0 and Onychomycosis B35.1 [facility] [id number] [place] [address] 81378- 1366 Oct, Onychomycosis B35.1 ; Onychocryptosis L60.0 and Type 2 diabetes mellitus without complication, without long-term current use of insulin E11.9 [place] [id number] [place] [address] 40402- 1020 Sep, Diverticulitis K57.92 [place] [id number] [place] [address] 99551- 2049 Sep, Diverticulitis K57.92 [place] [id number] [place] [address] 79268- 2205 Sep, [facility] [id number] [place] [address] 01428 -1725 Sep, Diarrhea, unspecified type R19.7 [place] [id number] [place] [address] 18013- 3663 Sep, [facility] [id number] [place] [address] 03486- 3313 Sep, Pain in right hip M25.551 [place] [id number] [place] [address] 72692- 9880 Sep, [place] [id number] [place] [address] 00502- 0705 Aug, Acute cystitis with hematuria N30.01 [facility] [id number] [place] [address] 7559 29 Aug, 2017 Type 2 diabetes mellitus [...] Angina pectoris I20.9 and Vaginal cancer C52 [place] [address] 55403- 0215 Aug, [place] [address] 10736- 5960 Aug, [place] [address] 13067- 8101 05 Aug, 2017 Vaginal candidiasis B37.3 and Vaginal itching L29.8 [place] [address] 87439- 8695 Aug, Dysuria R30.0 and Acute cystitis with hematuria N30.01 [place] [id number] [place] [address] 89434- 3407 July, [place] [address] 56897- 3606 July, [facility] [id number] [place] [address] 33713- 3714 July, [place] [address] 74030- 0936 Jun, [facility] [id number] [place] [address] 91437- 7121 Jun, [facility] [address] 94365 -9168 Jun, Right anterior knee pain M25.561 [facility] [id number] [place] [address] 89754- 0292 Jun, [place] [id number] [place] [address] 18370- 9759 Jun, Type 2 diabetes mellitus with diabetic neuropathic arthropathy, 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 [place] [id number] [place] [address] 93542- 5987 May, Acute non-recurrent maxillary sinusitis J01.00 and Acute suppurative otitis media of left ear without spontaneous rupture of tympanic membrane, recurrence not specified H66.002 [facility] [id number] [place] [address] 79928 -9734 May, Viral upper respiratory tract infection J06.9 [place] [id number] [place] [address] 63670- 8452 Apr, [place] [id number] [place] [address] 75557- 6269 Apr, Type 2 diabetes mellitus with diabetic [...] index (BMI) of 32.0-32.9 in adult Z68.32 [place] [address] 95441- 0269 Apr, Type 2 diabetes mellitus without complication, without long- term current use of insulin E11.9 [place] [id number] [place] [address] 98289- 0951 Apr, Papule R23.8 and Actinic keratosis L57.0 [facility] [address] [place] [address] 16794 -6708 Mar, Cough R05 ; Encounter for immunization Z23 ; Other viral agents as the cause of diseases classified elsewhere B97.89 and Acute upper respiratory infection, unspecified J06.9 [place] [id number] [place] [address] 96417- 2127 14 Jan, 2017 Migraine without status migrainosus, not intractable, unspecified migraine type G43.909 [place] [id number] [place] [address] 06575- 4234 17 Sep, 2016 [place] [address] 68627- 8070 13 Sep, 2016 Type 2 diabetes mellitus without complication, without long- term current use of insulin E11.9 ; Dehydration, mild E86.0 and Dyshidrotic eczema L30.1 [place] [id number] [place] [address] 83624- 1789 Sep, [place] [id number] [place] [address] 16439- 8643 Aug, Migraine without status migrainosus, not intractable, unspecified migraine type G43.909 [place] [id number] [place] [address] 59176- 0361 July, [place] [id number] [place] [address] 53927- 9678 Jun, Medicare annual wellness visit, subsequent Z00.00 ; Hyperlipidemia E78.5 ; CAD (coronary artery disease) I25.10 and Vaginal cancer C52 [place] [address] 70613- 6976 Jun, Sciatica M54.30 ; Pain in right hip M25.551 ; Dyshidrotic eczema L30.1 ; Candidiasis of breast B37.89 ; Right anterior knee pain M25.561 ; Hyperlipidemia E78.5 and Encounter for immunization Z23 [facility] [id number] [place] [address] 94913- 2524 May, Ganglion cyst of joint of finger of left hand M67.442 [facility] [id number] [place] [address] 78862- 4715 May, Migraine without status migrainosus, not intractable, unspecified migraine type G43.909 [place] [address] 90848- 9719 May, [place] [address] 45253- 9209 Apr, Skin lesion of back L98.9 and Encounter for immunization Z23 [place] [id number] [place] [address] 86236- 5364 Mar, Candidal dermatitis B37.2 ; Seborrheic keratoses L82.1 ; Polyneuropathy G62.9 and Dysuria R30.0 [facility] [id number] [place] [address] [id number] Mar, Dental examination Z01.20 [place] [address] 86484- 5719 Mar, Neuritis M79.2 [place] [address] 19717- 9223 Feb, Drug allergy Z88.9 [place] [id number] [place] [address] 67154- 1421 Feb, Dysuria R30.0 [place] [address] 84898- 7367 Feb, Acute cystitis with hematuria N30.01 [facility] [address] 37115- 1021 Feb, Dysuria R30.0 and Acute cystitis with hematuria N30.01 [facility] [address] 48534- 5158 Feb, Angina pectoris I20.9 ; Finger pain, left M79.645 ; 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 ; GERD (gastroesophageal reflux disease) K21.9 ; Pain in right hip M25.551 ; Pain in left hip M25.552 and Encounter for screening mammogram for breast cancer Z12.[address] 37902- 8656 Dec, Right hip pain M25.[address] 22262- 8671 13 Nov, 2015 GERD (gastroesophageal reflux disease) K21.9 ; Vaginal cancer C52 ; Pain in right hip M25.551 and Pain in left hip M25.[address] 92952- 6054 Oct, Squamous cell carcinoma C80.[address] 98840- 7670 Oct, Skin lesions L98.9 and Encounter for well woman exam Z01.[address] 26122- 9800 Oct, [address] 05810- 0446 Sep, [facility] [address] 83409 -2115 Aug, Atopic dermatitis, unspecified type L20.9 and Tick bite, initial encounter W57.XXXA [facility] [address] 31863 -5654 Aug, [address] 73881- 0666 July, Pre-procedural laboratory examination Z01.[address] 03036- 7729 July, Migraine without status migrainosus, not intractable, unspecified migraine type G43.909 ; Barretts esophagus without dysplasia K22.70 ; Sciatic nerve pain, left M54.32 and Localized swelling, mass and lump, head R22.0 [facility] [id number] [place] [address] 41945- 9182 May, [facility] [id number] [place] [address] 84672- 9649 May, [facility] [id number] [place] [address] 74696 -6176 May, Unspecified fall, initial encounter W19.XXXA ; Unspecified place in unspecified non-institutional (private) residence as the place of occurrence of the external cause Y92.009 ; Mid back pain M54.9 ; Rib pain on right side R07.81 ; Buttock pain M79.1 and Post-traumatic headache, unspecified , not intractable G44.309 [place] [address] 21496- 3595 10 Apr, 2015 Hypercholesteremia E78.0 ; Chest discomfort R07.89 ; 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 and History of sciatica Z86.69 [place] [id number] [place] [address] 90949- 6566 Mar, Calculus of left kidney N20.0 ; Hyperlipidemia E78.5 ; Degeneration disease of medial meniscus, 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 ; Right knee pain M25.561 ; Sciatica M54.30 ; GERD (gastroesophageal reflux disease) K21.9 and 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 [place] [id number] [place] [address] 63498- 1308 Mar, [place] [address] 01981- 3202 Mar, [place] [id number] [place] [address] 85110- 8523 Mar, [place] [address] 34605- 6747 Mar, Plantar fasciitis M72.[address] 72872- 1556 Mar, Degeneration disease of medial meniscus, 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 ; Right knee pain M25.561 ; Sciatica M54.30 ; GERD ( gastroesophageal reflux disease) K21.9 and 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 54341- 9021 Feb, [address] 64502- 5025 Feb, Osteopenia M85.[address] 88308- 4052 Feb, Screening for malignant neoplasm of breast Z12.39 and Encounter for screening mammogram for malignant neoplasm of breast Z12.[address] 88748- 2764 Feb, Hip pain M25.[address] 22872- 3874 Feb, [address] 65641- 7160 Feb, Arthralgia of right hip M25.551 ; Sciatica M54.30 ; GERD ( gastroesophageal reflux disease) K21.9 ; 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 ; CAD ( coronary artery disease) I25.10 and Hyperlipidemia 272.4 [facility] [address] 97517 -7339 06 Jan, 2015 Pharyngitis J02.9 ; Body aches R52 ; Cough R05 and Sinusitis J32.9 [facility] [address] [place] [address] 17260- 2295 11 Nov, 2014 Contusion of foot 924.20 and Plantar fasciitis 728.71 [facility] [address] [id number] Oct, Dental examination V72.2 [facility] [id number] [place] [address] 38884- 3756 Oct, [facility] [id number] [place] [address] 57003 2546 Oct, Coronary artery disease 414.00 [facility] [address] 44210- 0046 Oct, Zoster 053.9 [facility] [id number] [place] [address] 25573- 0156 Sep, Pain in joint, ankle and foot 719.47 ; Fry's esophagus 530.85 ; Cervicalgia 723.1 ; Pain in joint, shoulder region 719.41 ; Coronary artery disease 414.00 and Need for shingles vaccine V04.89 [facility] [id number] [place] [address] [id number] Sep, Dental examination V72.2 [facility] [id number] [place] [address] 09303- 3066 Sep, [facility] [id number] [place] [address] 65437- 0216 Aug, [facility] [id number] [place] [address] [id number] July, Dental examination V72.2 [facility] [id number] [place] [address] 29589- 2616 July, Cough 786.2 [facility] [id number] [place] [address] 69459- 3146 July, Sinusitis 473.9 and Fry esophagus 530.85 [facility] [id number] [place] [address] 42115- 1677 Jun, [facility] [id number] [place] [address] 244881- 4186 Jun, [facility] [place] [facility] [address] [id number] [place] [address]- 5158 May, [facility] [place] [facility] [address] [id number] [place] [address]- 4573 May, [facility] [place] [facility] [address] [id number] [place] [address]- 9767 May, [facility] [place] [facility] [address] [id number] [place] [address]- 4071 May, [facility] [place] [facility] [address] [id number] [place] [address]- 2941 May, [facility] [place] [facility] [address] [id number] [place] [address]- 6527 May, [facility] [place] [facility] [address] [id number] [place] [address]- 6912 May, [facility] [place] [facility] [address] [id number] [place] [address]- 7952 May, [facility] [place] [facility] [address] [id number] [place] [address]- 5790 Apr, [facility] [place] [facility] [address] [id number] [place] [address]- 5534 Apr, [facility] [place] [facility] [address] [id number] [place] [address]- 4856 Apr, [facility] [place] [facility] [address] [id number] [place] [address]- 5029 Mar, [facility] [place] [facility] [address] [id number] [place] [address]- 6141 Mar, [facility] [place] [facility] [address] [id number] [place] [address]- 9092 Mar, [facility] [place] [facility] [address] [id number] [place] [address]- 9737 Mar, [facility] [place] [facility] [address] [id number], [place] [address]- 2729 Feb, [facility] [place] [facility] [address] [id number] [place] 2923 Feb, [facility] [place] [facility] [address] [id number] [place] [address]- 8091 Feb, [facility] [place] [facility] [address] [id number] [place] [address]- 2853 Feb, [facility] [place] [facility] [address] [id number] [place] [address]- 6644 Feb, [facility] [place] [facility] [address] [id number] [place] [address]- 0350 Feb, [facility] [place] [facility] [address] [id number] [place] [address]- 1041 Feb, [facility] [place] [facility] [address] [id number] [place] [address]- 6394 Jan, [facility] [place] [facility] [address] [id number] [place] [address]- 7619 Jan, [facility] [place] [facility] [address] [id number] [place] [address]- 2388 Jan, [facility] [place] [facility] [address] [id number] [place] [address]- 7714 Jan, [facility] [place] [facility] [address] [id number], [place] [address]- 7679 Dec, [facility] [place] [facility] [address] [id number], [place] [address]- 5962 Dec, [facility] [place] [facility] [address] [id number] [place] [address]- 7594 Dec, [facility] [place] [facility] [address] [id number] [place] [address]- 0744 Dec, [facility] [place] [facility] [address] [id number], [place] [address]- 5804 Dec, [facility] [place] [facility] [address] [id number] [place] [address]- 5247 16 Dec, 2013 [facility] [place] [facility] [address] [id number] [place] [address]- 3898 24 Nov, 2013 [facility] [place] [facility] [address] [id number] [place] [address]- 9020 23 Nov, 2013 [facility] [place] [facility] [address] [id number] [place] [address]- 6260 23 Nov, 2013 [facility] [place] [facility] [address] [id number] [place] [address]- 3638 17 Nov, 2013 [facility] [place] [facility] [address] [id number] [place] [address]- 7316 17 Nov, 2013 [facility] [place] [facility] [address] [id number] [place] [address]- 5203 05 Nov, 2013 [facility] [place] [facility] [address] [id number] [place] [address]- 5365 Nov, [facility] [place] [facility] [address] [id number] [place] [address]- 4011 Oct, [facility] [place] [facility] [address] [id number] [place] [address]- 4226 Oct, [facility] [place] [facility] [address] [id number] [place] [address]- 9400 Oct, [facility] [place] [facility] [address] [id number] [place] [address]- 2993 Oct, [facility] [place] [facility] [address] [id number] [place] [address]- 8492 Oct, [facility] [place] [facility] [address] [id number] [place] [address]- 4815 Oct, [facility] [place] [facility] [address] [id number] [place] [address]- 8822 Oct, [facility] [place] [facility] [address] [id number] [place] [address]- 9744 Oct, [facility] [place] [facility] [address] [id number] [place] [address]- 3703 Oct, [facility] [place] [facility] [address] [id number] [place] [address]- 8498 Sep, [facility] [place] [facility] [address] [id number] [place] [address]- 8290 Sep, [facility] [place] [facility] [address] [id number] [place] [address]- 2390 Sep, [facility] [place] [facility] [address] [id number] [place] [address]- 0756 Sep, [facility] [place] [facility] [address] [id number] [place] [address]- 2969 Sep, [facility] [place] [facility] [address] [id number] [place] [address]- 5560 Sep, [facility] [place] [facility] [address] [id number] [place] [address]- 0994 Sep, [facility] [place] [facility] [address] [id number] [place] [address]- 5398 Sep, [facility] [place] [facility] [address] [id number] [place] [address]- 0812 Sep, [facility] [place] [facility] [address] [id number] [place] [address]- 9516 Aug, [facility] [place] [facility] [address] [id number] [place] [address]- 3106 Aug, [facility] [place] [facility] [address] [id number] [place] [address]- 9352 Jun, [facility] [place] [facility] [address] [id number] [place] [address]- 3453 Jun, [facility] [place] [facility] [address] [id number] [place] [address]- 1648 May, [facility] [place] [facility] [address] [id number] [place] [address]- 4847 May, [facility] [address] [id number] [place] [address]- 9832 Apr, [facility] [place] [facility] [address] [id number] [place] [address]- 8566 Apr, [facility] [place] [facility] [address] [id number] [place] [address] Apr, [facility] [place] [facility] [address] [id number] [place] [address] Apr, [facility] [address] [id number] [place] [address] Feb, [facility] [place] [facility] [address] [id number] [place] [address] Feb, [facility] [address] [id number] [place] [address] Jan, [facility] [place] [facility] [address] [id number] [place] [address] Jan, [facility] [place] [facility] [address] [id number] [place] [address] Nov, [facility] [place] [facility] [address] [id number] [place] [address] Sep, [facility] [place] [facility] [address] [id number] [place] [address] Sep, [facility] [place] [facility] [address] [id number] [place] [address] Aug, [facility] [place] [facility] [address] [id number] [place] [address] Aug, [facility] [place] [facility] [address] [id number] [place] [address] Aug, [facility] [place] [facility] [address] [id number] [place] [address] July, [facility] [place] [facility] [address] [id number] [place] [address] July, [facility] [place] [facility] [address] [id number] [place] [address] July, [facility] [place] [facility] [address] [id number] [place] [address] May, [facility] [place] [facility] [address] [id number] [place] [address] May, [facility] [place] [facility] [address] [id number] [place] [address] Jan, [facility] [place] [facility] [address] [id number] [place] [address] Jan, [facility] [place] [facility] [address] [id number] [place] [address] Jan, [facility] [place] [facility] [address] [id number] [place] [address] Jan, [facility] [place] [facility] [address] [id number] [place] [address] Jan, [facility] [place] [facility] [address] [id number] [place] [address] Jan, [facility] [place] [facility] [address] [id number] [place] [address] Jan, [facility] [place] [facility] [address] [id number] [place] [address] Jan, [facility] [place] [facility] [address] [id number] [place] [address] Dec, [facility] [place] [facility] [address] [id number] [place] [address] Dec, [facility] [place] [facility] [address] [id number] [place] [address] Aug, [facility] [place] [facility] [address] [id number], [place] [address] July, [facility] [address] [facility] [id number], [place] [address] Jun, [facility] [address] [facility] [id number], [place] [address] May, [facility] [address] [facility] [id number], [place] [address] May, [facility] [address] [facility] [id number], [place] [address] May, [facility] [address] [facility] [id number], [place] [address] Jun, IMMUNIZATIONS No Known Immunizations SOCIAL HISTORY Never Assessed REASON FOR VISIT [facility] follow up. Diagnosis of Diverticulitis and UTI. MOE Medrano PLAN OF CARE Activity Details Follow Up 3 Months, prn Reason:CHM/DM VITAL SIGNS Height 68 in 2017-10-17 Weight 205.9 lbs 2017-10-17 Temperature 98.3 degrees Fahrenheit 2017-10-17 Heart Rate 54 bpm 2017-10-17 Respiratory Rate 20 2017-10-17 BMI 31.30 kg/m2 2017-10-17 Blood pressure systolic 122 mmHg 2017-10-17 Blood pressure diastolic 66 mmHg 2017-10-17 MEDICATIONS Medication Instructions Dosage Frequency Start Date End Date Duration Status Pravastatin Sodium 20 MG TAKE ONE TABLET BY MOUTH ONCE DAILY Active Klor-Con 10 10 MEQ Orally once weekly 1 tablet with food Sep, Active Augmentin 875-125 MG Orally every 12 hrs 1 tablet 12h Sep,Sep Active Percocet 5-325 MG Orally 2 times a day as needed 1 tablet as needed Jan, Active Melatonin 5 MG Orally Once a day 1 tablet at bedtime as needed with food 24h Active Glucocard Expression Test 1 subcutaneously 2 times a day test 2 times per day 12July, Active Gabapentin 300 MG Orally Once a day 1 capsule 24h Active Pantoprazole Sodium 40 mg orally Once a day, for fry's esoph. 1 tablet Active Metformin HCl 500 MG TAKE ONE TABLET BY MOUTH ONCE DAILY WITH EVENING MEAL Active HydrOXYzine HCl 25 MG TAKE ONE TABLET BY MOUTH EVERY 8 HOURS NEEDED Active Celecoxib 200 mg Orally twice a day 1 capsule with food 12h Active Eliquis 5 mg Orally 2 times a day 1 tablet 12h 17 Jul, 2017 Active Nitrostat 0.4 MG DISSOLVE ONE TABLET SUBLINGUALLY NEEDED FOR CHEST PAIN ; MAY REPEAT TWO TIMES EVERY 5 MINUTES THEN GO TO ER Active RESULTS No Results PROCEDURES Procedure Date Ordered Result Body Site [facility] VISIT ESTABLISHED PATIENT October 17, 2017 INSTRUCTIONS MEDICATIONS ADMINISTERED No Known Medications [...]
--- OUTSIDE RECORDS SUMMARY | 2018-02-18 08:21 | XMS REPORT ---
Author Author JANES PECK Organization [facility] Address [address] [place] [address] Care Team Providers Care Clinical Informatics Strategist Name Role Phone CISCO JANES Unavailable PROBLEMS Type Condition ICD9-CM Code ADC26-NP Code Onset Dates Condition Status SNOMED Code Problem Angina pectoris I20.9 Active 363557320 Problem Dyshidrotic eczema L30.1 Active 067361054 Problem Polyneuropathy G62.9 Active 26106422 Problem Diverticulitis K57.92 Active 259017529 Problem Other obesity due to excess calories E66.09 Active 651375891 Problem Body mass index (BMI) of 30.0-30.9 in adult Z68.30 Active 621394030 Problem Type 2 diabetes mellitus with diabetic neuropathic arthropathy, 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 Active 849090622 Problem Anxiety F41.9 Active 48287631 Problem Type 2 diabetes mellitus without complication, without long-term current use of insulin E11.9 Active 470464642 Problem GERD (gastroesophageal reflux disease) K21.9 Active 197920365 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 844673507 Problem CAD (coronary artery disease) I25.10 Active 45461163 Problem Trochanteric bursitis of right hip M70.61 Active [id number] Problem Syndrome X, 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 Active 419485833 Problem Seborrheic keratoses L82.1 Active 700436586 Problem Hyperlipidemia E78.5 Active 62532637 Problem Sciatica of right side M54.31 Active 58251584 Problem Vaginal cancer C52 Active 054176807 ALLERGIES No Information ENCOUNTERS Encounter Location Date Diagnosis [facility] [address] [address] [facility] [id number] [address] Jan, [facility] [address] [facility] [id number], [place] [address] Dec, [place] [id number] [place] [address] 96553- 2821 Oct, Onychocryptosis L60.0 and Onychomycosis B35.1 [facility] [id number] [place] [address] 93549- 7821 Oct, Onychomycosis B35.1 ; Onychocryptosis L60.0 and Type 2 diabetes mellitus without complication, without long-term current use of insulin E11.9 [place] [id number] [place] [address] 15506- 8980 Sep, Diverticulitis K57.92 [place] [id number] [place] [address] 47933- 3355 Sep, Diverticulitis K57.92 [place] [id number] [place] [address] 37601- 6914 Sep, [facility] [id number] [place] [address] 52635 -0952 Sep, Diarrhea, unspecified type R19.7 [place] [id number] [place] [address] 07925- 9226 Sep, [place] [id number] [place] [address] 08646- 7547 Sep, Pain in right hip M25.551 [place] [id number] [place] [address] 17338- 4625 Sep, [place] [id number] [place] [address] 09153- 7020 Aug, Acute cystitis with hematuria N30.01 [place] [id number] [place] [address] 79365- 7841 Aug, Type 2 diabetes mellitus without complication, [...] Angina pectoris I20.9 and Vaginal cancer C52 [place] [address] 49051- 8244 Aug, [facility] [address] 71450- 0577 Aug, [place] [address] 98154- 6360 Aug, Vaginal candidiasis B37.3 and Vaginal itching L29.8 [place] [address] 33176- 4926 Aug, Dysuria R30.0 and Acute cystitis with hematuria N30.01 [place] [id number] [place] [address] 35201- 5609 July, [place] [address] 81421- 7110 July, [facility] [id number] [place] [address] 34301- 7830 July, [place] [id number] [place] [address] 06014- 4127 Jun, [facility] [id number] [place] [address] 54467- 9969 Jun, [facility] [id number] [place] [address] 98255 -6782 Jun, Right anterior knee pain M25.561 [facility] [id number] [place] [address] 27269- 8545 Jun, [facility] [address] 92358- 8581 Jun, Type 2 diabetes mellitus with diabetic neuropathic arthropathy, 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 [place] [id number] [place] [address] 97509- 4073 May, Acute non-recurrent maxillary sinusitis J01.00 and Acute suppurative otitis media of left ear without spontaneous rupture of tympanic membrane, recurrence not specified H66.002 [facility] [place] [id number] [place] [address] 41995 -6524 May, Viral upper respiratory tract infection J06.9 [place] [id number] [place] [address] 53320- 6768 Apr, [place] [address] 56944- 7108 Apr, Type 2 diabetes mellitus with diabetic [...] index (BMI) of 32.0-32.9 in adult Z68.32 [place] [id number] [place] [address] 44014- 2218 09 Apr, 2017 Type 2 diabetes mellitus without complication, without long- term current use of insulin E11.9 [place] [id number] [place] [address] 53263- 1943 02 Apr, 2017 Papule R23.8 and Actinic keratosis L57.0 [facility] [place] [id number] [place] [address] 81748 -6900 Mar, Cough R05 ; Encounter for immunization Z23 ; Other viral agents as the cause of diseases classified elsewhere B97.89 and Acute upper respiratory infection, unspecified J06.9 [place] [id number] [place] [address] 54637- 4505 14 Jan, 2017 Migraine without status migrainosus, not intractable, unspecified migraine type G43.909 [place] [id number] [place] [address] 00479- 6670 Sep, [place] [address] 47666- 0047 Sep, Type 2 diabetes mellitus without complication, without long- term current use of insulin E11.9 ; Dehydration, mild E86.0 and Dyshidrotic eczema L30.[address] 36383- 0737 Sep, [address] 92880- 1822 Aug, Migraine without status migrainosus, not intractable, unspecified migraine type G43.909 [place] [id number] [place] [address] 76290- 5878 July, [address] 10610- 9926 Jun, Medicare annual wellness visit, subsequent Z00.00 ; Hyperlipidemia E78.5 ; CAD (coronary artery disease) I25.10 and Vaginal cancer C52 [address] 65763- 0335 Jun, Sciatica M54.30 ; Pain in right hip M25.551 ; Dyshidrotic eczema L30.1 ; Candidiasis of breast B37.89 ; Right anterior knee pain M25.561 ; Hyperlipidemia E78.5 and Encounter for immunization Z23 [place] [id number] [place] [address] 93987- 0955 16 May, 2016 Ganglion cyst of joint of finger of left hand M67.[address] 26359- 2078 May, Migraine without status migrainosus, not intractable, unspecified migraine type G43.909 [place] [id number] [place] [address] 40789- 3246 May, [place] [address] 84200- 2099 09 Apr, 2016 Skin lesion of back L98.9 and Encounter for immunization Z23 [place] [id number] [place] [address] 82929- 5264 Mar, Candidal dermatitis B37.2 ; Seborrheic keratoses L82.1 ; Polyneuropathy G62.9 and Dysuria R30.0 [facility] [id number] [place] [address] [id number] Mar, Dental examination Z01.[address] 22121- 4586 Mar, Neuritis M79.2 [place] [address] 36780- 6890 Feb, Drug allergy Z88.9 [place] [address] 65874- 5826 Feb, Dysuria R30.[address] 36156- 4243 Feb, Acute cystitis with hematuria N30.01 [place] [address] 23386- 2598 Feb, Dysuria R30.0 and Acute cystitis with hematuria N30.01 [place] [address] 90325- 4773 Feb, Angina pectoris I20.9 ; Finger pain, left M79.645 ; 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 ; GERD (gastroesophageal reflux disease) K21.9 ; Pain in right hip M25.551 ; Pain in left hip M25.552 and Encounter for screening mammogram for breast cancer Z12.31 [place] [address] 35062- 0446 26 Dec, 2015 Right hip pain M25.551 [place] [address] 33714- 7530 13 Nov, 2015 GERD (gastroesophageal reflux disease) K21.9 ; Vaginal cancer C52 ; Pain in right hip M25.551 and Pain in left hip M25.552 [place] [address] 67146- 3557 19 Oct, 2015 Squamous cell carcinoma C80.[address] 54182- 9955 11 Oct, 2015 Skin lesions L98.9 and Encounter for well woman exam Z01.[address] 51308- 5696 Oct, [place] [address] 01134- 0807 Sep, [facility] [address] 24720 -2940 Aug, Atopic dermatitis, unspecified type L20.9 and Tick bite, initial encounter W57.XXXA [facility] [address] 41149 -3229 Aug, [place] [address] 21601- 6620 July, Pre-procedural laboratory examination Z01.812 [place] [address] 68176- 0448 July, Migraine without status migrainosus, not intractable, unspecified migraine type G43.909 ; Barretts esophagus without dysplasia K22.70 ; Sciatic nerve pain, left M54.32 and Localized swelling, mass and lump, head R22.[address] 24221- 6753 May, [facility] [id number] [place] [address] 61728- 5519 May, [facility] [id number] [place] [address] 65266 -9500 May, Unspecified fall, initial encounter W19.XXXA ; Unspecified place in unspecified non-institutional (private) residence as the place of occurrence of the external cause Y92.009 ; Mid back pain M54.9 ; Rib pain on right side R07.81 ; Buttock pain M79.1 and Post-traumatic headache, unspecified , not intractable G44.309 [place] [address] 75766- 1717 10 Apr, 2015 Hypercholesteremia E78.0 ; Chest discomfort R07.89 ; 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 and History of sciatica Z86.69 [place] [address] 66826- 0263 Mar, Calculus of left kidney N20.0 ; Hyperlipidemia E78.5 ; Degeneration disease of medial meniscus, 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 ; Right knee pain M25.561 ; Sciatica M54.30 ; GERD (gastroesophageal reflux disease) K21.9 and 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 [place] [id number] [place] [address] 67075- 9299 Mar, [place] [id number] [place] [address] 50468- 3488 Mar, [place] [id number] [place] [address] 50916- 4545 Mar, [place] [address] 57368- 3544 Mar, Plantar fasciitis M72.2 [place] [id number] [place] [address] 00822- 0280 Mar, Degeneration disease of medial meniscus, 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 ; Right knee pain M25.561 ; Sciatica M54.30 ; GERD ( gastroesophageal reflux disease) K21.9 and 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 [place] [address] 19959- 8749 Feb, [place] [address] 95848- 1245 Feb, Osteopenia M85.[address] 48096- 4371 Feb, Screening for malignant neoplasm of breast Z12.39 and Encounter for screening mammogram for malignant neoplasm of breast Z12.[address] 78495- 5264 Feb, Hip pain M25.[address] 33429- 8714 Feb, [address] 21222- 1895 Feb, Arthralgia of right hip M25.551 ; Sciatica M54.30 ; GERD ( gastroesophageal reflux disease) K21.9 ; 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 ; CAD ( coronary artery disease) I25.10 and Hyperlipidemia 272.4 [facility] [address] 89021 -9923 Jan, Pharyngitis J02.9 ; Body aches R52 ; Cough R05 and Sinusitis J32.[address] 68423- 5031 Nov, Contusion of foot 924.20 and Plantar fasciitis 728.71 [facility] [address] [id number] Oct, Dental examination V72.[address] 74156- 0495 Oct, [facility] [address] [place] [address]- 6836 Oct, Coronary artery disease 414.00 [facility] [id number] [place] [address] 67992- 2926 Oct, Zoster 053.9 [facility] [id number] [place] [address] 37946- 1316 Sep, Pain in joint, ankle and foot 719.47 ; 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.85 ; Cervicalgia 723.1 ; Pain in joint, shoulder region 719.41 ; Coronary artery disease 414.00 and Need for shingles vaccine V04.89 [facility] [id number] [place] [address] [id number] Sep, Dental examination V72.2 [facility] [id number] [place] [address] 75308 2546 Sep, [facility] [id number] [place] [address] 29493- 0556 Aug, [facility] [id number] [place] [address] [id number] July, Dental examination V72.2 [facility] [id number] [place] [address] 35765- 2126 July, Cough 786.2 [facility] [id number] [place] [address] 28706- 9199 July, Sinusitis 473.9 and Means esophagus 530.85 [facility] [id number] [place] [address] 63200- 7976 Jun, [facility] [id number] [place] [address] 32015- 8266 Jun, [facility] [id number] [place] [address] 93706- 7676 May, [facility] [address] [address] 2546 May, [facility] [id number] [place] [address]- 5348 May, [facility] [place] [facility] [address] [id number] [place] [address]- 2078 May, [facility] [place] [facility] [address] [id number] [place] [address]- 9876 May, [facility] [place] [facility] [address] [id number] [place] [address]- 2801 May, [facility] [place] [facility] [address] [id number] [place] [address]- 5572 May, [facility] [place] [facility] [address] [id number] [place] [address]- 8840 May, [facility] [place] [facility] [address] [id number] [place] [address]- 4994 Apr, [facility] [place] [facility] [address] [id number] [place] [address]- 4152 Apr, [facility] [place] [facility] [address] [id number] [place] [address]- 4720 Apr, [facility] [place] [facility] [address] [id number] [place] [address]- 9958 Mar, [facility] [place] [facility] [address] [id number] [place] [address]- 9922 Mar, [facility] [place] [facility] [address] [id number] [place] [address]- 4478 Mar, [facility] [place] [facility] [address] [id number] [place] [address]- 1023 Mar, [facility] [place] [facility] [address] [id number] [place] [address]- 0132 Feb, [facility] [place] [facility] [address] [id number] [place] [address]- 5566 Feb, [facility] [place] [facility] [address] [id number] [place] [address]- 5560 Feb, [facility] [place] [facility] [address] [id number] [place] [address]- 0807 Feb, [facility] [place] [facility] [address] [id number] [place] [address]- 2709 Feb, [facility] [place] [facility] [address] [id number] [place] 8881 Feb, [facility] [place] [facility] [address] [id number] [place] [address]- 9808 Feb, [facility] [place] [facility] [address] [id number] [place] [address]- 6213 Jan, [facility] [place] [facility] [address] [id number] [place] [address]- 8596 Jan, [facility] [place] [facility] [address] [id number] [place] [address]- 7675 Jan, [facility] [place] [facility] [address] [id number] [place] [address]- 6210 Jan, [facility] [place] [facility] [address] [id number] [place] [address]- 8892 Dec, [facility] [place] [facility] [address] [id number] [place] [address]- 3322 Dec, [facility] [place] [facility] [address] [id number] [place] [address]- 6652 Dec, [facility] [place] [facility] [address] [id number], [place] [address]- 0777 Dec, [facility] [place] [facility] [address] [id number] [place] [address]- 7030 Dec, [facility] [place] [facility] [address] [id number] [place] 0700 Dec, [facility] [place] [facility] [address] [id number] [place] 4344 24 Nov, 2013 [facility] [place] [facility] [address] [id number] [place] [address]- 2167 Nov, 2013 [facility] [place] [facility] [address] [id number] [place] [address]- 8829 23 Nov, 2013 [facility] [place] [facility] [address] [id number] [place] [address]- 3417 Nov, [facility] [place] [facility] [address] [id number] [place] [address]- 9328 Nov, [facility] [place] [facility] [address] [id number] [place] [address]- 8709 Nov, [facility] [place] [facility] [address] [id number] [place] [address]- 6553 Nov, [facility] [place] [facility] [address] [id number] [place] [address]- 2970 Oct, [facility] [place] [facility] [address] [id number] [place] [address]- 8456 Oct, [facility] [place] [facility] [address] [id number] [place] [address]- 7998 Oct, [facility] [place] [facility] [address] [id number] [place] [address]- 2141 Oct, [facility] [place] [facility] [address] [id number] [place] [address]- 8348 Oct, [facility] [place] [facility] [address] [id number] [place] [address]- 2863 Oct, [facility] [place] [facility] [address] [id number] [place] [address]- 1077 Oct, [facility] [place] [facility] [address] [id number] [place] [address]- 4855 Oct, [facility] [place] [facility] [address] [id number] [place] [address]- 3230 Oct, [facility] [place] [facility] [address] [id number] [place] [address]- 3368 Sep, [facility] [place] [facility] [address] [id number] [place] [address]- 5226 14 Sep, 2013 [facility] [place] [facility] [address] [id number] [place] [address]- 7978 Sep, 2013 [facility] [place] [facility] [address] [id number] [place] [address]- 2403 Sep, 2013 [facility] [place] [facility] [address] [id number] [place] [address]- 0227 Sep, 2013 [facility] [place] [facility] [address] [id number] [place] [address]- 8875 Sep, 2013 [facility] [place] [facility] [address] [id number] [place] [address]- 8729 Sep, 2013 [facility] [place] [facility] [address] [id number] [place] [address]- 6114 Sep, [facility] [place] [facility] [address] [id number] [place] [address]- 9351 Sep, [facility] [place] [facility] [address] [id number] [place] [address]- 9604 Aug, [facility] [place] [facility] [address] [id number] [place] [address]- 6279 Aug, [facility] [place] [facility] [address] [id number] [place] [address]- 0327 Jun, [facility] [place] [facility] [address] [id number] [place] [address]- 5092 Jun, [facility] [place] [facility] [address] [id number] [place] [address]- 4799 May, [facility] [place] [facility] [address] [id number] [place] [address]- 2823 May, [facility] [place] [facility] [address] [id number] [place] [address]- 7239 Apr, [facility] [place] [facility] [address] [id number] [place] [address]- 8778 Apr, [facility] [address] [id number] [place] [address]- 6667 Apr, [facility] [place] [facility] [address] [id number] [place] [address]- 3686 Apr, [facility] [address] [id number] [place] [address]- 2957 Feb, [facility] [place] [facility] [address] [id number] [place] [address]- 6809 Feb, [facility] [place] [facility] [address] [id number] [place] [address]- 6062 Jan, [facility] [place] [facility] [address] [id number] [place] 7585 Jan, [facility] [address] [id number] [place] [address]- 0717 Nov, [facility] [place] [facility] [address] [id number] [place] [address]- 2314 Sep, [facility] [place] [facility] [address] [id number] [place] [address]- 1263 Sep, [facility] [place] [facility] [address] [id number] [place] [address]- 2809 Aug, [facility] [place] [facility] [address] [id number] [place] [address]- 6694 Aug, [facility] [place] [facility] [address] [id number] [place] [address]- 1742 Aug, [facility] [place] [facility] [address] [id number] [place] [address]- 7871 July, [facility] [place] [facility] [address] [id number] [place] [address]- 9676 July, [facility] [place] [facility] [address] [id number] [place] [address]- 1783 July, [facility] [place] [facility] [address] [id number] [place] [address]- 4821 May, [facility] [address] [id number] [place] [address]- 9874 May, [facility] [place] [facility] [address] [id number] [place] [address] Jan, [facility] [address] [id number] [place] [address] Jan, [facility] [place] [facility] [address] [id number] [place] [address] Jan, [facility] [address] [id number] [place] [address] Jan, [facility] [place] [facility] [address] [id number] [place] [address] Jan, [facility] [address] [id number] [place] [address] Jan, [facility] [address] [id number] [place] [address] Jan, [facility] [place] [facility] [address] [id number] [place] [address] Jan, [facility] [address] [id number] [place] [address] Dec, [facility] [place] [facility] [address] [id number] [place] [address] Dec, [facility] [place] [facility] [address] [id number] [place] [address] Aug, [facility] [place] [facility] [address] [id number] [place] [address] July, [facility] [place] [facility] [address] [id number] [place] [address] Jun, [facility] [place] [facility] [address] [id number] [place] [address] May, [facility] [address] [address] [facility] [id number] [place] [address] May, [facility] [address] [facility] [id number] [place] [address] 2011 [facility] [address] [facility] [id number] [place] [address] Jun, 2008 IMMUNIZATIONS No Known Immunizations SOCIAL HISTORY Never Assessed REASON FOR VISIT Lab (walk-in) PLAN OF CARE VITAL SIGNS MEDICATIONS Unknown Medications RESULTS No Results PROCEDURES Procedure Date Ordered Result Body Site LAB NOT BILLED BY [facility] October 21, 2017 VENIPUNCT, ROUTINE* October 21, 2017 INSTRUCTIONS MEDICATIONS ADMINISTERED No Known Medications [...]
[2018-02-18] MEDS ORDERED: LACTATED RINGERS 1,000 ML IV STA (08:22)
--- OUTSIDE RECORDS SUMMARY | 2018-02-18 08:22 | XMS REPORT ---
Author Author JANES PECK Organization [facility] Address [address] [place] [address] Care Team Providers Care Insurance Account Assistant Name Role Phone CISCO JANES Unavailable PROBLEMS Type Condition ICD9-CM Code [id number] Code Onset Dates Condition Status SNOMED Code Problem Angina pectoris I20.9 Active 205694725 Problem Dyshidrotic eczema L30.1 Active 715880551 Problem Polyneuropathy G62.9 Active 77819136 Problem Diverticulitis K57.92 Active 275984885 Problem Other obesity due to excess calories E66.09 Active 138548049 Problem Body mass index (BMI) of 30.0-30.9 in adult Z68.30 Active 404884081 Problem Type 2 diabetes mellitus with diabetic neuropathic arthropathy, 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 Active 404917390 Problem Anxiety F41.9 Active 60792079 Problem Type 2 diabetes mellitus without complication, without long-term current use of insulin E11.9 Active 001451661 Problem GERD (gastroesophageal reflux disease) K21.9 Active 314196211 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 512786131 Problem CAD (coronary artery disease) I25.10 Active 25527395 Problem Trochanteric bursitis of right hip M70.61 Active [id number] Problem Syndrome X, 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 Active 546445808 Problem Seborrheic keratoses L82.1 Active 238976814 Problem Hyperlipidemia E78.5 Active 01706703 Problem Sciatica of right side M54.31 Active 81412863 Problem Vaginal cancer C52 Active 565811896 ALLERGIES No Information ENCOUNTERS Encounter Location Date Diagnosis [facility] [address] [facility] [id number], [place] [address] Jan, [facility] [address] [facility] [id number], [place] [address] Dec, [place] [address] [place] [id number] [place] [address] 43441- 9829 Oct, Onychocryptosis L60.0 and Onychomycosis B35.1 [facility] [id number] [place] [address] 38081- 8833 Oct, Onychomycosis B35.1 ; Onychocryptosis L60.0 and Type 2 diabetes mellitus without complication, without long-term current use of insulin E11.9 [place] [id number] [place] [address] 77461- 8925 Sep, Diverticulitis K57.92 [place] [id number] [place] [address] 01548- 7187 Sep, Diverticulitis K57.92 [place] [address] [address] [id number] [place] [address] 02963- 5973 Sep, [facility] [id number] [place] [address] 06417 -3527 Sep, Diarrhea, unspecified type R19.7 [place] [id number] [place] [address] 96656- 7822 Sep, [place] [id number] [place] [address] 61730- 2997 Sep, Pain in right hip M25.551 [place] [id number] [place] [address] 99465- 8808 Sep, [place] [id number] [place] [address] 06275- 6831 Aug, Acute cystitis with hematuria N30.01 [place] [address] [id number] [place] [address] 45508- 1772 Aug, Type 2 diabetes mellitus without complication, [...] Angina pectoris I20.9 and Vaginal cancer C52 [place] [address] 31598- 8894 Aug, [facility] [address] 15513- 8489 Aug, [place] [address] 98938- 3997 Aug, Vaginal candidiasis B37.3 and Vaginal itching L29.8 [place] [address] 28987- 9624 Aug, Dysuria R30.0 and Acute cystitis with hematuria N30.01 [place] [id number] [place] [address] 10404- 5019 July, [place] [address] 71724- 8599 July, [facility] [id number] [place] [address] 89313- 8367 July, [place] [id number] [place] [address] 08223- 7632 Jun, [facility] [id number] [place] [address] 66433- 3497 Jun, [facility] [id number] [place] [address] 13053 -6854 Jun, Right anterior knee pain M25.561 [facility] [id number] [place] [address] 19362- 0996 Jun, [facility] [address] 01176- 6568 Jun, Type 2 diabetes mellitus with diabetic neuropathic arthropathy, 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 [place] [id number] [place] [address] 02258- 7960 May, Acute non-recurrent maxillary sinusitis J01.00 and Acute suppurative otitis media of left ear without spontaneous rupture of tympanic membrane, recurrence not specified H66.002 [facility] [place] [id number] [place] [address] 74587 -1228 May, Viral upper respiratory tract infection J06.9 [place] [id number] [place] [address] 90523- 9242 Apr, [place] [address] 39956- 7565 Apr, Type 2 diabetes mellitus with diabetic [...] index (BMI) of 32.0-32.9 in adult Z68.32 [place] [id number] [place] [address] 98157- 9174 09 Apr, 2017 Type 2 diabetes mellitus without complication, without long- term current use of insulin E11.9 [place] [id number] [place] [address] 54704- 9922 02 Apr, 2017 Papule R23.8 and Actinic keratosis L57.0 [facility] [place] [id number] [place] [address] 68848 -4280 Mar, Cough R05 ; Encounter for immunization Z23 ; Other viral agents as the cause of diseases classified elsewhere B97.89 and Acute upper respiratory infection, unspecified J06.9 [place] [id number] [place] [address] 21998- 1071 14 Jan, 2017 Migraine without status migrainosus, not intractable, unspecified migraine type G43.909 [place] [id number] [place] [address] 52415- 1333 Sep, [place] [address] 78467- 7140 Sep, Type 2 diabetes mellitus without complication, without long- term current use of insulin E11.9 ; Dehydration, mild E86.0 and Dyshidrotic eczema L30.[address] 15061- 5377 Sep, [address] 31038- 4938 Aug, Migraine without status migrainosus, not intractable, unspecified migraine type G43.909 [place] [id number] [place] [address] 61691- 4392 July, [address] 72507- 0389 Jun, Medicare annual wellness visit, subsequent Z00.00 ; Hyperlipidemia E78.5 ; CAD (coronary artery disease) I25.10 and Vaginal cancer 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 [address] 87639- 0291 Jun, Sciatica M54.30 ; Pain in right hip M25.551 ; Dyshidrotic eczema L30.1 ; Candidiasis of breast B37.89 ; Right anterior knee pain M25.561 ; Hyperlipidemia E78.5 and Encounter for immunization Z23 [place] [id number] [place] [address] 24074- 7146 16 May, 2016 Ganglion cyst of joint of finger of left hand M67.[address] 35886- 2462 May, Migraine without status migrainosus, not intractable, unspecified migraine type G43.909 [place] [address] [id number] [place] [address] 73780- 8650 May, [place] [address] 51113- 0749 09 Apr, 2016 Skin lesion of back L98.9 and Encounter for immunization Z23 [place] [id number] [place] [address] 98600- 7151 Mar, Candidal dermatitis B37.2 ; Seborrheic keratoses L82.1 ; Polyneuropathy G62.9 and Dysuria R30.0 [facility] [address] [place] [id number] [place] [address] [id number] Mar, Dental examination Z01.[address] 83964- 7132 Mar, Neuritis M79.2 [place] [address] 16050- 5892 Feb, Drug allergy Z88.9 [place] [address] 25833- 8092 Feb, Dysuria R30.[address] 81264- 3872 Feb, Acute cystitis with hematuria N30.01 [place] [address] 74662- 1614 Feb, Dysuria R30.0 and Acute cystitis with hematuria N30.01 [place] [address] 30668- 7962 Feb, Angina pectoris I20.9 ; Finger pain, left M79.645 ; 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 ; GERD (gastroesophageal reflux disease) K21.9 ; Pain in right hip M25.551 ; Pain in left hip M25.552 and Encounter for screening mammogram for breast cancer Z12.31 [place] [address] 79080- 2546 26 Dec, 2015 Right hip pain M25.551 [place] [address] 11774- 0046 13 Nov, 2015 GERD (gastroesophageal reflux disease) K21.9 ; Vaginal cancer C52 ; Pain in right hip M25.551 and Pain in left hip M25.552 [place] [address] 25590- 1217 19 Oct, 2015 Squamous cell carcinoma C80.[address] 19682- 8162 11 Oct, 2015 Skin lesions L98.9 and Encounter for well woman exam Z01.[address] 43184- 4518 Oct, [place] [address] 06583- 9373 Sep, [facility] IN [address] 75854 -5765 Aug, Atopic dermatitis, unspecified type L20.9 and Tick bite, initial encounter W57.XXXA [facility] IN [address] 11248 -6270 Aug, [place] [address] 27735- 7258 July, Pre-procedural laboratory examination Z01.812 [place] [address] 40396- 7491 July, Migraine without status migrainosus, not intractable, unspecified migraine type G43.909 ; Barretts esophagus without dysplasia K22.70 ; Sciatic nerve pain, left M54.32 and Localized swelling, mass and lump, head R22.[address] 85099- 0040 May, [facility] [id number] [place] [address] 33110- 2081 May, [facility] [id number] [place] [address] 82103 -4827 May, Unspecified fall, initial encounter W19.XXXA ; Unspecified place in unspecified non-institutional (private) residence as the place of occurrence of the external cause Y92.009 ; Mid back pain M54.9 ; Rib pain on right side R07.81 ; Buttock pain M79.1 and Post-traumatic headache, unspecified , not intractable G44.309 [place] [address] 19852- 1460 10 Apr, 2015 Hypercholesteremia E78.0 ; Chest discomfort R07.89 ; 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 and History of sciatica Z86.69 [place] [address] 93485- 3196 Mar, Calculus of left kidney N20.0 ; Hyperlipidemia E78.5 ; Degeneration disease of medial meniscus, 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 ; Right knee pain M25.561 ; Sciatica M54.30 ; GERD (gastroesophageal reflux disease) K21.9 and 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 [place] [id number] [place] [address] 07974- 2660 Mar, [place] [id number] [place] [address] 53274- 0108 Mar, [place] [id number] [place] [address] 00429- 4397 Mar, [place] [address] 87887- 8147 Mar, Plantar fasciitis M72.2 [place] [id number] [place] [address] 48415- 8199 Mar, Degeneration disease of medial meniscus, 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 ; Right knee pain M25.561 ; Sciatica M54.30 ; GERD ( gastroesophageal reflux disease) K21.9 and 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4 [facility] [address] 59133 -5365 Jan, Pharyngitis J02.9 ; Body aches R52 ; Cough R05 and Sinusitis J32.[address] 24489- 8973 Nov, Contusion of foot 924.20 and Plantar fasciitis 728.71 [facility] [address] [id number] Oct, Dental examination V72.[address] 04101- 7619 Oct, [facility] [address] [place] [address]- 8806 Oct, Coronary artery disease 414.00 [facility] [address] [id number] [place] [address] 63274- 0616 Oct, Zoster 053.9 [facility] [id number] [place] [address] 37424- 2206 Sep, Pain in joint, ankle and foot 719.47 ; Fry's esophagus 530.85 ; Cervicalgia 723.1 ; Pain in joint, shoulder region 719.41 ; Coronary artery disease 414.00 and Need for shingles vaccine V04.89 [facility] [address] [place] [id number] [place] [address] [id number] Sep, Dental examination V72.2 [facility] [id number] [place] [address] 01431 2546 Sep, [facility] [id number] [place] [address] 75214- 1906 Aug, [facility] [id number] [place] [address] [id number] July, Dental examination V72.2 [facility] [id number] [place] [address] 28277- 6466 July, Cough 786.2 [facility] [id number] [place] [address] 98005- 7954 July, Sinusitis 473.9 and Fry esophagus 530.85 [facility] [id number] [place] [address] 17882- 0096 Jun, [facility] [id number] [place] [address] 46114- 1036 Jun, [facility] [id number] [place] [address] 49745- 8346 May, [facility] [address] [address] 2546 May, [facility] [address] [id number] [place] [address]- 8539 May, [facility] [place] [facility] [address] [id number] [place] [address]- 8450 May, [facility] [place] [facility] [address] [id number] [place] [address]- 8049 May, [facility] [place] [facility] [address] [id number] [place] [address]- 8246 May, [facility] [place] [facility] [address] [id number] [place] [address]- 5530 May, [facility] [place] [facility] [address] [id number] [place] [address]- 3801 May, [facility] [place] [facility] [address] [id number] [place] [address]- 9077 Apr, [facility] [place] [facility] [address] [id number] [place] [address]- 9025 Apr, [facility] [place] [facility] [address] [id number] [place] [address]- 0821 Apr, [facility] [place] [facility] [address] [id number] [place] [address]- 3161 Mar, [facility] [place] [facility] [address] [id number] [place] [address]- 4677 Mar, [facility] [place] [facility] [address] [id number] [place] [address]- 8443 Mar, [facility] [place] [facility] [address] [id number] [place] [address]- 1187 Mar, [facility] [place] [facility] [address] [id number] [place] [address]- 1930 Feb, [facility] [place] [facility] [address] [id number] [place] [address]- 3536 Feb, [facility] [place] [facility] [address] [id number] [place] [address]- 4378 Feb, [facility] [place] [facility] [address] [id number] [place] [address]- 8443 Feb, [facility] [place] [facility] [address] [id number] [place] [address]- 6123 Feb, [facility] [place] [facility] [address] [id number] [place] 9122 Feb, [facility] [place] [facility] [address] [id number] [place] [address]- 6524 Feb, [facility] [place] [facility] [address] [id number] [place] [address]- 0842 Jan, [facility] [place] [facility] [address] [id number] [place] [address]- 8795 Jan, [facility] [place] [facility] [address] [id number] [place] [address]- 0387 Jan, [facility] [place] [facility] [address] [id number] [place] [address]- 3145 Jan, [facility] [place] [facility] [address] [id number] [place] [address]- 8571 Dec, [facility] [place] [facility] [address] [id number] [place] [address]- 1674 Dec, [facility] [place] [facility] [address] [id number] [place] [address]- 1749 Dec, [facility] [place] [facility] [address] [id number], [place] [address]- 3279 Dec, [facility] [place] [facility] [address] [id number] [place] [address]- 1724 Dec, [facility] [place] [facility] [address] [id number] [place] 7541 Dec, [facility] [place] [facility] [address] [id number] [place] 2844 24 Nov, 2013 [facility] [place] [facility] [address] [id number] [place] [address]- 1038 Nov, 2013 [facility] [place] [facility] [address] [id number] [place] [address]- 6867 23 Nov, 2013 [facility] [place] [facility] [address] [id number] [place] [address]- 2612 Nov, [facility] [place] [facility] [address] [id number] [place] [address]- 6324 Nov, [facility] [place] [facility] [address] [id number] [place] [address]- 4890 Nov, [facility] [place] [facility] [address] [id number] [place] [address]- 9348 Nov, [facility] [place] [facility] [address] [id number] [place] [address]- 2565 Oct, [facility] [place] [facility] [address] [id number] [place] [address]- 2455 Oct, [facility] [place] [facility] [address] [id number] [place] [address]- 4727 Oct, [facility] [place] [facility] [address] [id number] [place] [address]- 0786 Oct, [facility] [place] [facility] [address] [id number] [place] [address]- 1348 Oct, [facility] [place] [facility] [address] [id number] [place] [address]- 5597 Oct, [facility] [place] [facility] [address] [id number] [place] [address]- 1341 Oct, [facility] [place] [facility] [address] [id number] [place] [address]- 9854 Oct, [facility] [place] [facility] [address] [id number] [place] [address]- 9355 Oct, [facility] [place] [facility] [address] [id number] [place] [address]- 6673 Sep, [facility] [place] [facility] [address] [id number] [place] [address]- 0610 14 Sep, 2013 [facility] [place] [facility] [address] [id number] [place] [address]- 8829 Sep, 2013 [facility] [place] [facility] [address] [id number] [place] [address]- 9539 Sep, 2013 [facility] [place] [facility] [address] [id number] [place] [address]- 4298 Sep, 2013 [facility] [place] [facility] [address] [id number] [place] [address]- 5005 Sep, 2013 [facility] [place] [facility] [address] [id number] [place] [address]- 6042 Sep, 2013 [facility] [place] [facility] [address] [id number] [place] [address]- 2947 Sep, [facility] [place] [facility] [address] [id number] [place] [address]- 4570 Sep, [facility] [place] [facility] [address] [id number] [place] [address]- 2114 Aug, [facility] [place] [facility] [address] [id number] [place] [address]- 3250 Aug, [facility] [place] [facility] [address] [id number] [place] [address]- 3810 Jun, [facility] [place] [facility] [address] [id number] [place] [address]- 7927 Jun, [facility] [place] [facility] [address] [id number] [place] [address]- 1639 May, [facility] [place] [facility] [address] [id number] [place] [address]- 3594 May, [facility] [place] [facility] [address] [id number] [place] [address]- 1146 Apr, [facility] [place] [facility] [address] [id number] [place] [address]- 3081 Apr, [facility] [address] [id number] [place] [address]- 8372 Apr, [facility] [place] [facility] [address] [id number] [place] [address]- 5596 Apr, [facility] [address] [id number] [place] [address]- 3876 Feb, [facility] [place] [facility] [address] [id number] [place] [address]- 9850 Feb, [facility] [place] [facility] [address] [id number] [place] [address]- 1211 Jan, [facility] [place] [facility] [address] [id number] [place] 9791 Jan, [facility] [address] [id number] [place] [address]- 5725 Nov, [facility] [place] [facility] [address] [id number] [place] [address]- [address] Sep, [facility] [place] [facility] [address] [id number] [place] [address] Sep, [facility] [place] [facility] [address] [id number] [place] [address] Aug, [facility] [place] [facility] [address] [id number] [place] [address] Aug, [facility] [place] [facility] [address] [id number] [place] [address] Aug, [facility] [place] [facility] [address] [id number] [place] [address] July, [facility] [place] [facility] [address] [id number] [place] [address] July, [facility] [place] [facility] [address] [id number] [place] [address] July, [facility] [place] [facility] [address] [id number] [place] [address] May, [facility] [address] [id number] [place] [address] May, [facility] [place] [facility] [address] [id number] [place] [address] Jan, [facility] [address] [id number] [place] [address] Jan, [facility] [place] [facility] [address] [id number] [place] [address] Jan, [facility] [address] [id number] [place] [address] Jan, [facility] [place] [facility] [address] [id number] [place] [address] Jan, [facility] [address] [id number] [place] [address] Jan, [facility] [address] [id number] [place] [address] Jan, [facility] [place] [facility] [address] [id number] [place] [address] Jan, [facility] [address] [id number] [place] [address] Dec, [facility] [place] [facility] [address] [id number] [place] [address] Dec, [facility] [place] [facility] [address] [id number] [place] [address] Aug, [facility] [place] [facility] [address] [id number] [place] [address] July, [facility] [place] [facility] [address] [id number] [place] [address] Jun, [facility] [place] [facility] [address] [id number] [place] [address] May, [facility] [address] [facility] [id number] [place] [address] May, [facility] [address] [facility] [id number], [place] [address] May, [facility] [address] [facility] [id number], [place] [address] Jun, 2008 IMMUNIZATIONS No Known Immunizations SOCIAL HISTORY Never Assessed REASON FOR VISIT Hospital admit/DC PLAN OF CARE VITAL SIGNS MEDICATIONS Medication Instructions Dosage Frequency Start Date End Date Duration Status Carafate 1 GM TAKE ONE TABLET BY MOUTH FOUR TIMES DAILY Not- Taking Oxycodone HCl 5 MG Orally every 6 hrs 1 tablet as needed 6h Active Glucocard Expression Test 1 subcutaneously 2 times a day test 2 times per day 12h July, Active Pantoprazole Sodium 40 mg orally Once a day, for fry's esoph. 1 tablet Active HydrOXYzine HCl 25 MG TAKE ONE TABLET BY MOUTH EVERY 8 HOURS NEEDED Active Gabapentin 300 MG Orally Once a day 1 capsule 24h Active Celecoxib 200 mg Orally twice a day 1 capsule with food 12h Active Nitrostat 0.4 MG DISSOLVE ONE TABLET SUBLINGUALLY NEEDED FOR CHEST PAIN ; MAY REPEAT TWO TIMES EVERY 5 MINUTES THEN GO TO ER Active Percocet 5-325 MG Orally 2 times a day as needed 1 tablet as needed Jan, Not-Taking Cyclobenzaprine HCl 10 mg 1 tablet Not-Taking Metformin HCl 500 MG TAKE ONE TABLET BY MOUTH ONCE DAILY WITH EVENING MEAL Active Augmentin 875-125 MG Orally every 12 hrs 1 tablet 12Sep,Sep Active Pravastatin Sodium 20 MG TAKE ONE TABLET BY MOUTH ONCE DAILY Active Eliquis 5 mg Orally 2 times a day 1 tablet 12h July, Active Melatonin 5 MG Orally Once a day 1 tablet at bedtime as needed with food 24h Active Cinnamon Orally 2 times a day 12h Not-Taking Klor-Con 10 10 MEQ Orally once weekly 1 tablet with food Active RESULTS No Results PROCEDURES No Known [...]
--- OUTSIDE RECORDS SUMMARY | 2018-02-18 08:23 | XMS REPORT ---
Author Author LILLIAN REZA [facility] Address [address] [place] [address] Care Team Providers Care Erp Programmer Name Role Phone LILLIAN REZA Unavailable PROBLEMS Type Condition ICD9-CM Code XDO23-XU Code Onset Dates Condition Status SNOMED Code Problem Angina pectoris I20.9 Active 064485531 Problem Dyshidrotic eczema L30.1 Active 683991256 Problem Polyneuropathy G62.9 Active 19352996 Problem Diverticulitis K57.92 Active 702676458 Problem Other obesity due to excess calories E66.09 Active 616108142 Problem Body mass index (BMI) of 30.0-30.9 in adult Z68.30 Active 828497697 Problem Type 2 diabetes mellitus with diabetic neuropathic arthropathy, 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 Active 633201158 Problem Anxiety F41.9 Active 26771657 Problem Type 2 diabetes mellitus without complication, without long-term current use of insulin E11.9 Active 497866566 Problem GERD (gastroesophageal reflux disease) K21.9 Active 985443334 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 847516544 Problem CAD (coronary artery disease) I25.10 Active 00734899 Problem Trochanteric bursitis of right hip M70.61 Active [id number] Problem Syndrome X, 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 Active 726128621 Problem Seborrheic keratoses L82.1 Active 591887408 Problem Hyperlipidemia E78.5 Active 93281802 Problem Sciatica of right side M54.31 Active 59999432 Problem Vaginal cancer C52 Active 384695859 ALLERGIES Substance Reaction Event Type Date Status Pentazocine-Naloxone itching Drug Allergy Sep, Active Cipro Unknown Drug Allergy Sep, Active Actifed palpitations Drug Allergy Sep, Active Oxycodone unable to take more than 1 Drug Allergy Sep, Active Morphine Abdominal pain with IV form Drug Allergy Sep, Active ENCOUNTERS Encounter Location Date Diagnosis [facility] [id number] [place] [address] 22433- 5006 Jan, [place] [id number] [place] [address] 47053- 7524 Dec, [facility] [id number] [place] [address] 59256- 6875 Oct, Onychocryptosis L60.0 and Onychomycosis B35.1 [place] [id number] [place] [address] 33442- 5034 Oct, Onychomycosis B35.1 ; Onychocryptosis L60.0 and Type 2 diabetes mellitus without complication, without long-term current use of insulin E11.9 [facility] [id number] [place] [address] 22554- 8658 Sep, Diverticulitis K57.92 [facility] [id number] [place] [address] 77525- 6228 Sep, Diverticulitis K57.92 [place] [id number] [place] [address] 71989- 4432 Sep, [facility] [id number] [place] [address] 21681 -3803 Sep, Diarrhea, unspecified type R19.7 [place] [id number] [place] [address] 71181- 7124 Sep, [facility] [id number] [place] [address] 37429- 0967 Sep, Pain in right hip M25.551 [place] [id number] [place] [address] 22639- 9125 Sep, [facility] [id number] [place] [address] 62059- 4552 Aug, Acute cystitis with hematuria N30.01 [place] [id number] [place] [address] 30619- 7923 29 Aug, 2017 Type 2 diabetes mellitus [...] Angina pectoris I20.9 and Vaginal cancer 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 [place] [address] 16470- 1860 Aug, [place] [address] 28529- 3995 Aug, [place] [address] 42197- 1487 Aug, Vaginal candidiasis B37.3 and Vaginal itching L29.8 [place] [address] 19662- 8785 Aug, Dysuria R30.0 and Acute cystitis with hematuria N30.01 [place] [address] 58066- 9705 July, [place] [address] 45997- 6173 July, [place] [address] 78873- 1049 July, [place] [address] 55889- 9005 Jun, [place] [address] 03601- 1862 Jun, [facility] IN [facility] [address] 76481 -7755 Jun, Right anterior knee pain M25.561 [place] [id number] [place] [address] 11911- 8150 Jun, [place] [id number] [place] [address] 52706- 4041 Jun, Type 2 diabetes mellitus with diabetic neuropathic arthropathy, 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 [place] [id number] [place] [address] 98632- 2906 May, Acute non-recurrent maxillary sinusitis J01.00 and Acute suppurative otitis media of left ear without spontaneous rupture of tympanic membrane, recurrence not specified H66.002 [facility] [id number] [place] [address] 59779 -0015 May, Viral upper respiratory tract infection J06.9 [place] [id number] [place] [address] 61913- 3668 Apr, [place] [id number] [place] [address] 60481- 8343 Apr, Type 2 diabetes mellitus with diabetic [...] index (BMI) of 32.0-32.9 in adult Z68.32 [place] [id number] [place] [address] 10433- 6987 Apr, Type 2 diabetes mellitus without complication, without long- term current use of insulin E11.9 [facility] [id number] [place] [address] 07193- 6628 02 Apr, 2017 Papule R23.8 and Actinic keratosis L57.0 [facility] IN [facility] [id number] [place] [address] 17031 -2570 11 Mar, 2017 Cough R05 ; Encounter for immunization Z23 ; Other viral agents as the cause of diseases classified elsewhere B97.89 and Acute upper respiratory infection, unspecified J06.9 [place] [address] 21776- 3635 14 Jan, 2017 Migraine without status migrainosus, not intractable, unspecified migraine type G43.909 [place] [id number] [place] [address] 85190- 0353 17 Sep, 2016 [place] [address] 88105- 4921 13 Sep, 2016 Type 2 diabetes mellitus without complication, without long- term current use of insulin E11.9 ; Dehydration, mild E86.0 and Dyshidrotic eczema L30.1 [place] [id number] [place] [address] 12791- 7305 Sep, [place] [id number] [place] [address] 06696- 7131 Aug, Migraine without status migrainosus, not intractable, unspecified migraine type G43.909 [place] [id number] [place] [address] 13237- 6808 July, [place] [id number] [place] [address] 46265- 5008 Jun, Medicare annual wellness visit, subsequent Z00.00 ; Hyperlipidemia E78.5 ; CAD (coronary artery disease) I25.10 and Vaginal cancer 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 [place] [id number] [place] [address] 70488- 6865 Jun, Sciatica M54.30 ; Pain in right hip M25.551 ; Dyshidrotic eczema L30.1 ; Candidiasis of breast B37.89 ; Right anterior knee pain M25.561 ; Hyperlipidemia E78.5 and Encounter for immunization Z23 [facility] [id number] [place] [address] 53930- 4812 16 May, 2016 Ganglion cyst of joint of finger of left hand M67.442 [facility] [id number] [place] [address] 31528- 1498 15 May, 2016 Migraine without status migrainosus, not intractable, unspecified migraine type G43.909 [facility] [address] 14222- 9050 May, [facility] [address] 25172- 4772 Apr, Skin lesion of back L98.9 and Encounter for immunization Z23 [facility] [id number] [place] [address] 55084- 2282 Mar, Candidal dermatitis B37.2 ; Seborrheic keratoses L82.1 ; Polyneuropathy G62.9 and Dysuria R30.0 [facility] [id number] [place] [address] [id number] Mar, Dental examination Z01.20 [place] [address] 37365- 3456 Mar, Neuritis M79.2 [facility] [address] 17177- 7821 Feb, Drug allergy Z88.9 [facility] [id number] [place] [address] 86362- 2890 Feb, Dysuria R30.0 [facility] [address] 27542- 7008 Feb, Acute cystitis with hematuria N30.01 [facility] [id number] [place] [address] 05664- 3058 Feb, Dysuria R30.0 and Acute cystitis with hematuria N30.01 [facility] [address] [place] [address]- 7211 06 Feb, 2016 Angina pectoris I20.9 ; Finger pain, left M79.645 ; 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 ; GERD (gastroesophageal reflux disease) K21.9 ; Pain in right hip M25.551 ; Pain in left hip M25.552 and Encounter for screening mammogram for breast cancer Z12.31 [place] [address] 60157- 6485 Dec, Right hip pain M25.551 [place] [address] 26569- 8215 13 Nov, 2015 GERD (gastroesophageal reflux disease) K21.9 ; Vaginal cancer C52 ; Pain in right hip M25.551 and Pain in left hip M25.[address] 99857- 7194 Oct, Squamous cell carcinoma C80.[address] 25897- 2592 Oct, Skin lesions L98.9 and Encounter for well woman exam Z01.[address] 35416- 8152 Oct, [place] [address] 97460- 4159 Sep, [facility] [address] 78514 -9821 Aug, Atopic dermatitis, unspecified type L20.9 and Tick bite, initial encounter W57.XXXA [facility] [address] 15257 -2528 Aug, [address] 08300- 6069 July, Pre-procedural laboratory examination Z01.[address] 02621- 1949 July, Migraine without status migrainosus, not intractable, unspecified migraine type G43.909 ; Barretts esophagus without dysplasia K22.70 ; Sciatic nerve pain, left M54.32 and Localized swelling, mass and lump, head R22.0 [facility] [address] [address]- 9761 May, [facility] [id number] [place] [address] 00376- 1376 May, [facility] IN [facility] [id number] [place] [address] 67492 -4841 May, Unspecified fall, initial encounter W19.XXXA ; Unspecified place in unspecified non-institutional (private) residence as the place of occurrence of the external cause Y92.009 ; Mid back pain M54.9 ; Rib pain on right side R07.81 ; Buttock pain M79.1 and Post-traumatic headache, unspecified , not intractable G44.309 [place] [id number] [place] [address] 46258- 6278 Apr, Hypercholesteremia E78.0 ; Chest discomfort R07.89 ; 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 and History of sciatica Z86.69 [place] [address] [place] [address] 50903- 6442 Mar, Calculus of left kidney N20.0 ; Hyperlipidemia E78.5 ; Degeneration disease of medial meniscus, 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 ; Right knee pain M25.561 ; Sciatica M54.30 ; GERD (gastroesophageal reflux disease) K21.9 and 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 [place] [address] [place] [address] 52055- 4919 Mar, [place] [id number] [place] [address] 77132- 9759 Mar, [place] [address] [place] [address] 24186- 0402 Mar, [place] [address] 59705- 8258 Mar, Plantar fasciitis M72.[address] 36819- 7223 Mar, Degeneration disease of medial meniscus, 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 ; Right knee pain M25.561 ; Sciatica M54.30 ; GERD ( gastroesophageal reflux disease) K21.9 and 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 30198- 9131 Feb, [address] 57171- 2648 Feb, Osteopenia M85.[address] 46828- 4243 Feb, Screening for malignant neoplasm of breast Z12.39 and Encounter for screening mammogram for malignant neoplasm of breast Z12.[address] 49722- 4067 Feb, Hip pain M25.[address] 24003- 3204 Feb, [address] 51452- 4520 Feb, Arthralgia of right hip M25.551 ; Sciatica M54.30 ; GERD ( gastroesophageal reflux disease) K21.9 ; 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 ; CAD ( coronary artery disease) I25.10 and Hyperlipidemia 272.4 [facility] [address] 43597 -1534 Jan, Pharyngitis J02.9 ; Body aches R52 ; Cough R05 and Sinusitis J32.[address] 32939- 8326 11 Nov, 2014 Contusion of foot 924.20 and Plantar fasciitis 728.71 [facility] [address] [id number] Oct, Dental examination V72.2 [facility] [id number] [place] [address] 15620 2546 Oct, [facility] [id number] [place] [address] 80238- 2546 Oct, Coronary artery disease 414.00 [facility] [id number] [place] [address] 81773 2546 Oct, Zoster 053.9 [facility] [id number] [place] [address] 48353- 6126 Sep, Pain in joint, ankle and foot 719.47 ; Fry's esophagus 530.85 ; Cervicalgia 723.1 ; Pain in joint, shoulder region 719.41 ; Coronary artery disease 414.00 and Need for shingles vaccine V04.89 [facility] [id number] [place] [address] [id number] Sep, Dental examination V72.2 [facility] [id number] [place] [address] 50770- 8036 Sep, [facility] [id number] [place] [address] 10423- 3766 Aug, [facility] [address] [place] [address] [id number] July, Dental examination V72.2 [facility] [id number] [place] [address] 31758 2546 July, Cough 786.2 [facility] [id number] [place] [address] 43674- 8976 July, Sinusitis 473.9 and Fry esophagus 530.85 [facility] [id number] [place] [address] 94420 2546 Jun, [facility] [id number] [place] [address] 917408- 7126 Jun, [facility] [place] [facility] [address] [id number] [place] [address]- 4959 May, [facility] [place] [facility] [address] [id number] [place] [address]- 7111 May, [facility] [place] [facility] [address] [id number] [place] [address]- 1852 May, [facility] [place] [facility] [address] [id number] [place] [address]- 7985 May, [facility] [place] [facility] [address] [id number] [place] [address]- 3008 May, [facility] [place] [facility] [address] [id number] [place] [address]- 6307 May, [facility] [place] [facility] [address] [id number] [place] [address]- 6247 May, [facility] [place] [facility] [address] [id number] [place] [address]- 5719 May, [facility] [place] [facility] [address] [id number] [place] [address]- 3944 Apr, [facility] [place] [facility] [address] [id number] [place] [address]- 6336 Apr, [facility] [place] [facility] [address] [id number] [place] [address]- 0618 Apr, [facility] [place] [facility] [address] [id number] [address]- 5326 Mar, [facility] [place] [facility] [address] [id number] [place] [address]- 4279 Mar, [facility] [place] [facility] [address] [id number] [address]- 6651 Mar, [facility] [place] [facility] [address] [id number] [place] [address]- 6781 Mar, [facility] [place] [facility] [address] [id number] [place] [address]- 4849 16 Feb, 2014 [facility] [place] [facility] [address] [id number] [place] [address]- 3240 Feb, [facility] [place] [facility] [address] [id number] [place] 1712 Feb, [facility] [place] [facility] [address] [id number] [place] [address]- 9799 Feb, [facility] [place] [facility] [address] [id number] [place] [address]- 0815 Feb, [facility] [place] [facility] [address] [id number] [place] [address]- 0656 Feb, [facility] [place] [facility] [address] [id number] [place] [address]- 4244 Feb, [facility] [place] [facility] [address] [id number] [place] [address]- 9508 Jan, [facility] [place] [facility] [address] [id number] [place] [address]- 2713 Jan, [facility] [place] [facility] [address] [id number] [place] [address]- 3315 Jan, [facility] [place] [facility] [address] [id number] [place] [address]- 6218 Jan, [facility] [place] [facility] [address] [id number] [place] [address]- 4716 Dec, [facility] [place] [facility] [address] [id number] [place] [address]- 7692 Dec, [facility] [place] [facility] [address] [id number] [place] [address]- 2748 Dec, [facility] [place] [facility] [address] [id number] [place] [address]- 8002 Dec, [facility] [place] [facility] [address] [id number] [place] [address]- 0974 Dec, [facility] [place] [facility] [address] [id number] [place] [address]- 0542 16 Dec, 2013 [facility] [place] [facility] [address] [id number] [place] [address]- 6103 24 Nov, 2013 [facility] [place] [facility] [address] [id number] [place] [address]- 4855 23 Nov, 2013 [facility] [place] [facility] [address] [id number] [place] [address]- 9786 23 Nov, 2013 [facility] [place] [facility] [address] [id number] [place] [address]- 7519 17 Nov, 2013 [facility] [place] [facility] [address] [id number] [place] [address]- 5929 17 Nov, 2013 [facility] [place] [facility] [address] [id number] [place] [address]- 2035 05 Nov, 2013 [facility] [place] [facility] [address] [id number] [place] [address]- 9066 05 Nov, 2013 [facility] [place] [facility] [address] [id number] [place] [address]- 0043 Oct, [facility] [place] [facility] [address] [id number] [place] [address]- 1261 Oct, [facility] [place] [facility] [address] [id number] [place] [address]- 8975 Oct, [facility] [place] [facility] [address] [id number] [place] [address]- 0508 Oct, [facility] [place] [facility] [address] [id number] [place] [address]- 1419 Oct, [facility] [place] [facility] [address] [id number] [place] [address]- 2081 Oct, [facility] [place] [facility] [address] [id number] [place] [address]- 7742 Oct, [facility] [place] [facility] [address] [id number] [place] [address]- 6226 Oct, [facility] [place] [facility] [address] [id number] [place] [address]- 6093 Oct, [facility] [place] [facility] [address] [id number] [place] [address]- 1907 Sep, [facility] [place] [facility] [address] [id number] [place] [address]- 1301 Sep, [facility] [place] [facility] [address] [id number] [place] [address]- 4764 Sep, [facility] [place] [facility] [address] [id number] [place] [address]- 9444 Sep, [facility] [place] [facility] [address] [id number] [place] [address]- 9072 Sep, [facility] [place] [facility] [address] [id number] [place] [address]- 5934 Sep, [facility] [place] [facility] [address] [id number] [place] [address]- 9662 Sep, [facility] [place] [facility] [address] [id number] [place] [address]- 8916 Sep, [facility] [place] [facility] [address] [id number] [place] [address]- 2557 Sep, [facility] [place] [facility] [address] [id number] [place] [address]- 8403 Aug, [facility] [place] [facility] [address] [id number] [place] [address]- 6573 Aug, [facility] [place] [facility] [address] [id number] [place] [address]- 3350 Jun, [facility] [place] [facility] [address] [id number] [place] [address]- 6904 Jun, [facility] [place] [facility] [address] [id number] [place] [address]- 6865 May, [facility] [place] [facility] [address] [id number] [place] [address] 2547 May, [facility] [address] [id number] [place] [address]- 1176 Apr, [facility] [place] [facility] [address] [id number] [place] [address] 2546 Apr, [facility] [place] [facility] [address] [id number] [place] [address]- 1986 Apr, [facility] [place] [facility] [address] [id number] [place] [address]- 2546 Apr, [facility] [place] [facility] [address] [id number] [place] [address]- 1888 Feb, [facility] [place] [facility] [address] [id number] [place] [address]- 8889 Feb, [facility] [place] [facility] [address] [id number] [place] [address]- 4074 Jan, [facility] [place] [facility] [address] [id number] [place] [address]- 6403 Jan, [facility] [place] [facility] [address] [id number] [place] [address]- 2003 Nov, [facility] [place] [facility] [address] [id number] [place] [address]- 1660 Sep, [facility] [place] [facility] [address] [id number] [place] [address] Sep, [facility] [place] [facility] [address] [id number] [place] [address] Aug, [facility] [place] [facility] [address] [id number] [place] [address] Aug, [facility] [place] [facility] [address] [id number] [place] [address] Aug, [facility] [place] [facility] [address] [id number] [place] [address] July, [facility] [place] [facility] [address] [id number] [place] [address] July, [facility] [place] [facility] [address] [id number] [place] [address] July, [facility] [place] [facility] [address] [id number] [place] [address] May, [facility] [place] [facility] [address] [id number] [place] [address] May, [facility] [place] [facility] [address] [id number] [place] [address] Jan, [facility] [place] [facility] [address] [id number] [place] [address] Jan, [facility] [place] [facility] [address] [id number] [place] [address] Jan, [facility] [place] [facility] [address] [id number] [place] [address] Jan, [facility] [place] [facility] [address] [id number] [place] [address] Jan, [facility] [place] [facility] [address] [id number] [place] [address] Jan, [facility] [place] [facility] [address] [id number] [place] [address] Jan, [facility] [place] [facility] [address] [id number] [place] [address] Jan, [facility] [place] [facility] [address] [id number] [place] [address] Dec, [facility] [place] [facility] [address] [id number] [place] [address] Dec, [facility] [place] [facility] [address] [id number] [place] [address] Aug, [facility] [place] [facility] [address] [facility] [id number] [place] [address] July, [facility] [address] [id number] [address] Jun, [facility] [address] [facility] [id number] [place] [address] May, [facility] [id number] [address] May, [facility] [address] [id number] [address] May, [facility] [address] [id number] [address] Jun, IMMUNIZATIONS No Known Immunizations SOCIAL HISTORY Never Assessed REASON FOR VISIT Diarrhea x 3 days.--TIFFANI Tavares PLAN OF CARE Activity Details Follow Up prn Reason: VITAL SIGNS Height 68 in 2017-10-09 Weight 202.8 lbs 2017-10-09 Temperature 98.2 degrees Fahrenheit 2017-10-09 Heart Rate 80 bpm 2017-10-09 Respiratory Rate 18 2017-10-09 BMI 30.83 kg/m2 2017-10-09 Blood pressure systolic 116 mmHg 2017-10-09 Blood pressure diastolic 60 mmHg 2017-10-09 MEDICATIONS Medication Instructions Dosage Frequency Start Date End Date Duration Status Pantoprazole Sodium 40 mg orally Once a day, for fry's esoph. 1 tablet Active Cinnamon Orally 2 times a day 12h Active Eliquis 5 mg Orally 2 times a day 1 tablet July, Active Carafate 1 GM TAKE ONE TABLET BY MOUTH FOUR TIMES DAILY Active Oxycodone HCl 5 MG Orally every 6 hrs 1 tablet as needed 6h Active Cyclobenzaprine HCl 10 mg 1 tablet Active Metformin HCl 500 MG TAKE ONE TABLET BY MOUTH ONCE DAILY WITH EVENING MEAL Active Nitrostat 0.4 MG DISSOLVE ONE TABLET SUBLINGUALLY NEEDED FOR CHEST PAIN ; MAY REPEAT TWO TIMES EVERY 5 MINUTES THEN GO TO ER Active Glucocard Expression Test 1 subcutaneously 2 times a day test 2 times per day 12h July, Active Melatonin 5 MG Orally Once a day 1 tablet at bedtime as needed with food 24h Active Pravastatin Sodium 20 MG TAKE ONE TABLET BY MOUTH ONCE DAILY Active HydrOXYzine HCl 25 MG TAKE ONE TABLET BY MOUTH EVERY 8 HOURS NEEDED Active Percocet 5-325 MG Orally 2 times a day as needed 1 tablet as needed Jan, Active RESULTS No Results PROCEDURES Procedure Date Ordered Result Body Site [facility] VISIT ESTABLISHED PATIENT October 09, 2017 INSTRUCTIONS MEDICATIONS ADMINISTERED No Known Medications [...]
--- OUTSIDE RECORDS SUMMARY | 2018-02-18 08:23 | XMS REPORT ---
Author Author JANES PECK Organization [facility] Address [address] [place] [address] Care Team Providers Care Hydrogeology Professor Name Role Phone CIS[employer] JANES Unavailable PROBLEMS Type Condition ICD9-CM Code LZP66-CI Code Onset Dates Condition Status SNOMED Code Problem Angina pectoris I20.9 Active 125461508 Problem Dyshidrotic eczema L30.1 Active 797525822 Problem Polyneuropathy G62.9 Active 38220343 Problem Diverticulitis K57.92 Active 920639435 Problem Other obesity due to excess calories E66.09 Active 089422581 Problem Body mass index (BMI) of 30.0-30.9 in adult Z68.30 Active 432833501 Problem Type 2 diabetes mellitus with diabetic neuropathic arthropathy, 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 Active 717297588 Problem Anxiety F41.9 Active 45852299 Problem Type 2 diabetes mellitus without complication, without long-term current use of insulin E11.9 Active 799820244 Problem GERD (gastroesophageal reflux disease) K21.9 Active 594879446 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 [address] [facility] [id number] [address] Jan, [facility] [address] [facility] [id number] [address] Dec, [place] [address] [id number] [place] [address] 58512- 6270 Oct, Onychocryptosis L60.[address] [facility] [address] [id number] [place] [address] 84982- 8588 Oct, Onychomycosis B35.1 ; Onychocryptosis L60.0 and Type 2 diabetes mellitus without complication, without long-term current use of insulin E11.9 [place] [address] [id number] [place] [address] 87774- 8097 Sep, Diverticulitis K57.92 [place] [id number] [place] [address] 38050- 3053 Sep, Diverticulitis K57.92 [place] [id number] [place] [address] 34258- 8705 Sep, [facility] [id number] [place] [address] 15545 -7772 Sep, Diarrhea, unspecified type R19.7 [place] [id number] [place] [address] 13540- 6064 Sep, [place] [id number] [place] [address] 39308- 7093 Sep, Pain in right hip M25.551 [place] [address] [id number] [place] [address] 43905- 0008 Sep, [place] [id number] [place] [address] 27393- 5482 Aug, Acute cystitis with hematuria N30.01 [place] [id number] [place] [address] 16516- 3024 Aug, Type 2 diabetes mellitus without complication, [...] Angina pectoris I20.9 and Vaginal cancer C52 [place] [address] 49288- [address]395 Aug, [facility] [address] 64655- 7250 Aug, [place] [address] 53766- 6307 Aug, Vaginal candidiasis B37.3 and Vaginal itching L29.8 [place] [address] 33156- 3602 Aug, Dysuria R30.0 and Acute cystitis with hematuria N30.01 [place] [id number] [place] [address] 18170- 7238 July, [place] [address] 75316- 6646 July, [facility] [id number] [place] [address] 94056- 0450 July, [place] [id number] [place] [address] 65045- 3869 Jun, [facility] [id number] [place] [address] 94405- 4653 Jun, [facility] [id number] [place] [address] 34701 -7937 Jun, Right anterior knee pain M25.561 [facility] [id number] [place] [address] 63273- 6704 Jun, 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 [place] [id number] [place] [address] 66652- 9732 May, Acute non-recurrent maxillary sinusitis J01.00 and Acute suppurative otitis media of left ear without spontaneous rupture of tympanic membrane, recurrence not specified H66.002 [facility] [place] [id number] [place] [address] 32106 -1798 May, Viral upper respiratory tract infection J06.9 [place] [id number] [place] [address] 79600- 0399 Apr, [place] [address] 57286- 3811 Apr, Type 2 diabetes mellitus with diabetic [...] index (BMI) of 32.0-32.9 in adult Z68.32 [place] [id number] [place] [address] 71755- 1363 09 Apr, 2017 Type 2 diabetes mellitus without complication, without long- term current use of insulin E11.9 [place] [id number] [place] [address] 13151- 1700 02 Apr, 2017 Papule R23.8 and Actinic keratosis L57.0 [facility] [place] [id number] [place] [address] 60791 -3615 Mar, Cough R05 ; Encounter for immunization Z23 ; Other viral agents as the cause of diseases classified elsewhere B97.89 and Acute upper respiratory infection, unspecified J06.9 [place] [id number] [place] [address] 84795- 9104 14 Jan, 2017 Migraine without status migrainosus, not intractable, unspecified migraine type G43.909 [place] [id number] [place] [address] 90933- 8355 Sep, [place] [address] 75629- 0947 Sep, Type 2 diabetes mellitus without complication, without long- term current use of insulin E11.9 ; Dehydration, mild E86.0 and Dyshidrotic eczema L30.[address] 41648- 0812 Sep, [address] 64153- 4741 Aug, Migraine without status migrainosus, not intractable, unspecified migraine type G43.909 [place] [id number] [place] [address] 20060- 7766 July, [address] 49619- 9402 Jun, Medicare annual wellness visit, subsequent Z00.00 ; Hyperlipidemia E78.5 ; CAD (coronary artery disease) I25.10 and Vaginal cancer C52 [address] 22595- 2875 Jun, Sciatica M54.30 ; Pain in right hip M25.551 ; Dyshidrotic eczema L30.1 ; Candidiasis of breast B37.89 ; Right anterior knee pain M25.561 ; Hyperlipidemia E78.5 and Encounter for immunization Z23 [place] [id number] [place] [address] 43749- 4113 16 May, 2016 Ganglion cyst of joint of finger of left hand M67.[address] 53625- 6901 May, Migraine without status migrainosus, not intractable, unspecified migraine type G43.909 [place] [id number] [place] [address] 55815- 7794 May, [place] [address] 21426- 5099 09 Apr, 2016 Skin lesion of back L98.9 and Encounter for immunization Z23 [place] [id number] [place] [address] 97009- 3658 Mar, Candidal dermatitis B37.2 ; Seborrheic keratoses L82.1 ; Polyneuropathy G62.9 and Dysuria R30.[address] [facility] [address] [place] [id number] [place] [address] [id number] Mar, Dental examination Z01.[address] 68521- 0626 Mar, Neuritis M79.2 [place] [address] 63137- 9040 Feb, Drug allergy Z88.9 [place] [address] 62583- 7714 Feb, Dysuria R30.[address] 64186- 8066 Feb, Acute cystitis with hematuria N30.01 [place] [address] 93155- 7045 Feb, Dysuria R30.0 and Acute cystitis with hematuria N30.01 [place] [address] 89460- 6313 Feb, Angina pectoris I20.9 ; Finger pain, left M79.645 ; 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 ; GERD (gastroesophageal reflux disease) K21.9 ; Pain in right hip M25.551 ; Pain in left hip M25.552 and Encounter for screening mammogram for breast cancer Z12.31 [place] [address] 18755- 8182 26 Dec, 2015 Right hip pain M25.551 [place] [address] 40392- 2620 13 Nov, 2015 GERD (gastroesophageal reflux disease) K21.9 ; Vaginal cancer C52 ; Pain in right hip M25.551 and Pain in left hip M25.552 [place] [address] 20035- 1436 19 Oct, 2015 Squamous cell carcinoma C80.[address] 30394- 7393 11 Oct, 2015 Skin lesions L98.9 and Encounter for well woman exam Z01.[address] 09180- 8930 Oct, [place] [address] 86541- 1032 Sep, [facility] [address] 46842 -7874 Aug, Atopic dermatitis, unspecified type L20.9 and Tick bite, initial encounter W57.XXXA [facility] [address] 14127 -1843 Aug, [place] [address] 91885- 7139 July, Pre-procedural laboratory examination Z01.812 [place] [address] 77453- 2259 July, Migraine without status migrainosus, not intractable, unspecified migraine type G43.909 ; Barretts esophagus without dysplasia K22.70 ; Sciatic nerve pain, left M54.32 and Localized swelling, mass and lump, head R22.[address] 94994- 8462 May, [facility] [id number] [place] [address] 12427- 7727 May, [facility] [id number] [place] [address] 79962 -6363 May, Unspecified fall, initial encounter W19.XXXA ; Unspecified place in unspecified non-institutional (private) residence as the place of occurrence of the external cause Y92.009 ; Mid back pain M54.9 ; Rib pain on right side R07.81 ; Buttock pain M79.1 and Post-traumatic headache, unspecified , not intractable G44.309 [place] [address] 40313- 3497 10 Apr, 2015 Hypercholesteremia E78.0 ; Chest discomfort R07.89 ; 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 and History of sciatica Z86.69 [place] [address] 58925- 5066 Mar, Calculus of left kidney N20.0 ; Hyperlipidemia E78.5 ; Degeneration disease of medial meniscus, 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 ; Right knee pain M25.561 ; Sciatica M54.30 ; GERD (gastroesophageal reflux disease) K21.9 and 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 [place] [address] [id number] [place] [address] 24244- 3841 Mar, [place] [id number] [place] [address] 66574- 6904 Mar, [place] [id number] [place] [address] 50023- 6137 Mar, [place] [address] 37047- 3027 Mar, Plantar fasciitis M72.2 [place] [id number] [place] [address] 22949- 9850 Mar, Degeneration disease of medial meniscus, 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 ; Right knee pain M25.561 ; Sciatica M54.30 ; GERD ( gastroesophageal reflux disease) K21.9 and 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 [place] [address] 65869- 7970 Feb, [place] [address] 77924- 9847 Feb, Osteopenia M85.[address] 87727- 3089 Feb, Screening for malignant neoplasm of breast Z12.39 and Encounter for screening mammogram for malignant neoplasm of breast Z12.[address] 62974- 6986 Feb, Hip pain M25.[address] 16187- 3422 Feb, [address] 26431- 0280 Feb, Arthralgia of right hip M25.551 ; Sciatica M54.30 ; GERD ( gastroesophageal reflux disease) K21.9 ; 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 [address] [id number] Oct, Dental examination V72.[address] 68894- 8160 Oct, [facility] [address] [place] [address]- 0336 Oct, Coronary artery disease 414.00 [facility] [id number] [place] [address] 81173- 0426 Oct, Zoster 053.9 [facility] [id number] [place] [address] 40847- 1066 Sep, Pain in joint, ankle and foot 719.47 ; 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.85 ; Cervicalgia 723.1 ; Pain in joint, shoulder region 719.41 ; Coronary artery disease 414.00 and Need for shingles vaccine V04.[address] [facility] [id number] [place] [address] [id number] Sep, Dental examination V72.2 [facility] [id number] [place] [address] 68339 2546 Sep, [facility] [id number] [place] [address] 35543- 9486 Aug, [facility] [id number] [place] [address] [id number] July, Dental examination V72.2 [facility] [address] [id number] [place] [address] 01280- 8656 July, Cough 786.2 [facility] [address] [id number] [place] [address] 54383- 4996 July, Sinusitis 473.9 and Means esophagus 530.85 [facility] [id number] [place] [address] 59696- 7096 Jun, [facility] [id number] [place] [address] 46369- 8656 Jun, [facility] [id number] [place] [address] 80852- 8046 May, [facility] [address] [address] 2546 May, [facility] [address] [place] [id number] [place] [address]- 2361 May, [facility] [place] [facility] [address] [id number] [place] [address]- 8340 May, [facility] [place] [facility] [address] [id number] [place] [address]- 0596 May, [facility] [place] [facility] [address] [id number] [place] [address]- 9498 May, [facility] [place] [facility] [address] [id number] [place] [address]- 9029 May, [facility] [place] [facility] [address] [id number] [place] [address]- 2451 May, [facility] [place] [facility] [address] [id number] [place] [address]- 0642 Apr, [facility] [place] [facility] [address] [id number] [place] [address]- 7728 Apr, [facility] [place] [facility] [address] [id number] [place] [address]- 6188 Apr, [facility] [place] [facility] [address] [id number] [place] [address]- 3527 Mar, [facility] [place] [facility] [address] [id number] [place] [address]- 9066 Mar, [facility] [place] [facility] [address] [id number] [place] [address]- 5542 Mar, [facility] [place] [facility] [address] [id number] [place] [address]- 5402 Mar, [facility] [place] [facility] [address] [id number] [place] [address]- 8621 Feb, [facility] [place] [facility] [address] [id number] [place] [address]- 7886 Feb, [facility] [place] [facility] [address] [id number] [place] [address]- 7919 Feb, [facility] [place] [facility] [address] [id number] [place] [address]- 9772 Feb, [facility] [place] [facility] [address] [id number] [place] [address]- 9968 Feb, [facility] [place] [facility] [address] [id number] [place] 1082 Feb, [facility] [place] [facility] [address] [id number] [place] [address]- 5654 Feb, [facility] [place] [facility] [address] [id number] [place] [address]- 6056 Jan, [facility] [place] [facility] [address] [id number] [place] [address]- 7530 Jan, [facility] [place] [facility] [address] [id number] [place] [address]- 6195 Jan, [facility] [place] [facility] [address] [id number] [place] [address]- 6934 Jan, [facility] [place] [facility] [address] [id number] [place] [address]- 4343 Dec, [facility] [place] [facility] [address] [id number] [place] [address]- 1683 Dec, [facility] [place] [facility] [address] [id number] [place] [address]- 7305 Dec, [facility] [place] [facility] [address] [id number] [place] [address]- 7674 Dec, [facility] [place] [facility] [address] [id number] [place] [address]- 6926 Dec, [facility] [place] [facility] [address] [id number] [place]- 5834 Dec, [facility] [place] [facility] [address] [id number] [place] [address] 24 Nov, 2013 [facility] [place] [facility] [address] [id number] [place] [address]- 9123 Nov, 2013 [facility] [place] [facility] [address] [id number] [place] [address]- 3989 23 Nov, 2013 [facility] [place] [facility] [address] [id number] [place] [address]- 2315 Nov, [facility] [place] [facility] [address] [id number] [place] [address]- 1535 Nov, [facility] [place] [facility] [address] [id number] [place] [address]- 3942 Nov, [facility] [place] [facility] [address] [id number] [place] [address]- 8136 Nov, [facility] [place] [facility] [address] [id number] [place] [address]- 3966 Oct, [facility] [place] [facility] [address] [id number] [place] [address]- 7752 Oct, [facility] [place] [facility] [address] [id number] [place] [address]- 1068 Oct, [facility] [place] [facility] [address] [id number] [place] [address]- 5204 Oct, [facility] [place] [facility] [address] [id number] [place] [address]- 7505 Oct, [facility] [place] [facility] [address] [id number] [place] [address]- 3017 Oct, [facility] [place] [facility] [address] [id number] [place] [address]- 4999 Oct, [facility] [place] [facility] [address] [id number] [place] [address]- 7720 Oct, [facility] [place] [facility] [address] [id number] [place] [address]- 6564 Oct, [facility] [place] [facility] [address] [id number] [place] [address]- 0820 Sep, [facility] [place] [facility] [address] [id number] [place] [address]- 8878 14 Sep, 2013 [facility] [place] [facility] [address] [id number] [place] [address]- 3750 Sep, 2013 [facility] [place] [facility] [address] [id number] [place] [address]- 3255 Sep, 2013 [facility] [place] [facility] [address] [id number] [place] [address]- 8754 Sep, 2013 [facility] [place] [facility] [address] [id number] [place] [address]- 9768 Sep, 2013 [facility] [place] [facility] [address] [id number] [place] [address]- 1884 Sep, 2013 [facility] [place] [facility] [address] [id number] [place] [address]- 8723 Sep, [facility] [place] [facility] [address] [id number] [place] [address]- 3629 Sep, [facility] [place] [facility] [address] [id number] [place] [address]- 5832 Aug, [facility] [place] [facility] [address] [id number] [place] [address]- 9120 Aug, [facility] [place] [facility] [address] [id number] [place] [address]- 6545 Jun, [facility] [place] [facility] [address] [id number] [place] [address]- 0999 Jun, [facility] [place] [facility] [address] [id number] [place] [address]- 8919 May, [facility] [place] [facility] [address] [id number] [place] [address]- 9107 May, [facility] [place] [facility] [address] [id number] [place] [address]- 5730 Apr, [facility] [place] [facility] [address] [id number] [place] [address]- 9411 Apr, [facility] [address] [id number] [place] [address]- 5499 Apr, [facility] [place] [facility] [address] [id number] [place] [address]- 8076 Apr, [facility] [address] [id number] [place] [address]- 8446 Feb, [facility] [place] [facility] [address] [id number] [place] [address] Feb, [facility] [place] [facility] [address] [id number] [place] [address] Jan, [facility] [place] [facility] [address] [id number] [place] [address] Jan, [facility] [address] [id number] [place] [address] Nov, [facility] [place] [facility] [address] [id number] [place] [address] Sep, [facility] [place] [facility] [address] [id number] [place] [address] Sep, [facility] [place] [facility] [address] [id number] [place] [address] Aug, [facility] [place] [facility] [address] [id number] [place] [address] Aug, [facility] [place] [facility] [address] [id number] [place] [address] Aug, [facility] [place] [facility] [address] [id number] [place] [address] July, [facility] [place] [facility] [address] [id number] [place] [address] July, [facility] [place] [facility] [address] [id number] [place] [address] July, [facility] [place] [facility] [address] [id number] [place] [address] May, [facility] [address] [id number] [place] [address] May, [facility] [place] [facility] [address] [id number] [place] [address] Jan, [facility] [address] [id number] [place] [address] Jan, [facility] [place] [facility] [address] [id number] [place] [address] Jan, [facility] [address] [id number] [place] [address] Jan, [facility] [place] [facility] [address] [id number] [place] [address] Jan, [facility] [address] [id number] [place] [address] Jan, [facility] [address] [id number] [place] [address] Jan, [facility] [place] [facility] [address] [id number] [place] [address] Jan, [facility] [address] [id number] [place] [address] Dec, [facility] [place] [facility] [address] [id number] [place] [address] Dec, [facility] [place] [facility] [address] [id number] [place] [address] Aug, [facility] [place] [facility] [address] [id number] [place] [address] July, [facility] [place] [facility] [address] [id number] [place] [address] Jun, [facility] [place] [facility] [address] [id number] [place] [address] May, [facility] [address] [facility] [id number] [place] [address] May, [facility] [address] [facility] [id number] [place] [address] May, [facility] [address] [facility] [id number] [place] [address] 13 Jun, 2008 IMMUNIZATIONS No Known Immunizations SOCIAL HISTORY Never Assessed REASON FOR VISIT FYI only PLAN OF CARE VITAL SIGNS MEDICATIONS Unknown [...]
--- OUTSIDE RECORDS SUMMARY | 2018-02-18 08:24 | XMS REPORT ---
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 Name Role Phone CISCO JANES Unavailable PROBLEMS Type Condition ICD9-CM Code VMS34-OT Code Onset Dates Condition Status SNOMED Code Problem Angina pectoris I20.9 Active 483892281 Problem Dyshidrotic eczema L30.1 Active 427892380 Problem Polyneuropathy G62.9 Active 25174595 Problem Diverticulitis K57.92 Active 968340959 Problem Other obesity due to excess calories E66.09 Active 429447059 Problem Body mass index (BMI) of 30.0-30.9 in adult Z68.30 Active 979873260 Problem Type 2 diabetes mellitus with diabetic neuropathic arthropathy, 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 Active 910166916 Problem Anxiety F41.9 Active 14112145 Problem Type 2 diabetes mellitus without complication, without long-term current use of insulin E11.9 Active 433905122 Problem GERD (gastroesophageal reflux disease) K21.9 Active 660817302 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 [id number] [address] Jan, [facility] [address] [facility] [id number], [place] [address] Dec, [place] [id number] [place] [address] 66205- 2850 Oct, Onychocryptosis L60.0 and Onychomycosis B35.1 [facility] [id number] [place] [address] 60535- 1708 Oct, Onychomycosis B35.1 ; Onychocryptosis L60.0 and Type 2 diabetes mellitus without complication, without long-term current use of insulin E11.9 [place] [id number] [place] [address] 70346- 4052 Sep, Diverticulitis K57.92 [place] [id number] [place] [address] 61201- 8069 Sep, Diverticulitis K57.92 [place] [id number] [place] [address] 47866- 4414 Sep, [facility] [id number] [place] [address] 74232 -6555 Sep, Diarrhea, unspecified type R19.7 [place] [id number] [place] [address] 09326- 7034 Sep, [place] [id number] [place] [address] 30687- 7766 Sep, Pain in right hip M25.551 [place] [id number] [place] [address] 86837- 6819 Sep, [place] [id number] [place] [address] 14311- 7830 Aug, Acute cystitis with hematuria N30.01 [place] [id number] [place] [address] 73704- 4604 Aug, Type 2 diabetes mellitus without complication, [...] Angina pectoris I20.9 and Vaginal cancer C52 [place] [address] 81134- 0182 Aug, [facility] [address] 38817- 9738 Aug, [place] [address] 68163- 7132 Aug, Vaginal candidiasis B37.3 and Vaginal itching L29.8 [place] [address] 35438- 0775 Aug, Dysuria R30.0 and Acute cystitis with hematuria N30.01 [place] [id number] [place] [address] 15786- 2709 July, [place] [address] 96127- 1028 July, [facility] [id number] [place] [address] 76802- 9725 July, [place] [id number] [place] [address] 94621- 7539 Jun, [facility] [id number] [place] [address] 96933- 2479 Jun, [facility] [id number] [place] [address] 78207 -7407 Jun, Right anterior knee pain M25.561 [facility] [id number] [place] [address] 62549- 8293 Jun, [facility] [address] 26235- 2925 Jun, Type 2 diabetes mellitus with diabetic neuropathic arthropathy, 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 [place] [id number] [place] [address] 47376- 0728 May, Acute non-recurrent maxillary sinusitis J01.00 and Acute suppurative otitis media of left ear without spontaneous rupture of tympanic membrane, recurrence not specified H66.002 [facility] [place] [id number] [place] [address] 39475 -5534 May, Viral upper respiratory tract infection J06.9 [place] [id number] [place] [address] 47209- 3350 Apr, [place] [address] 51735- 4027 Apr, Type 2 diabetes mellitus with diabetic [...] index (BMI) of 32.0-32.9 in adult Z68.32 [place] [id number] [place] [address] 53165- 8389 09 Apr, 2017 Type 2 diabetes mellitus without complication, without long- term current use of insulin E11.9 [place] [id number] [place] [address] 08063- 5984 02 Apr, 2017 Papule R23.8 and Actinic keratosis L57.0 [facility] [place] [id number] [place] [address] 24223 -1333 Mar, Cough R05 ; Encounter for immunization Z23 ; Other viral agents as the cause of diseases classified elsewhere B97.89 and Acute upper respiratory infection, unspecified J06.9 [place] [id number] [place] [address] 58787- 9420 14 Jan, 2017 Migraine without status migrainosus, not intractable, unspecified migraine type G43.909 [place] [id number] [place] [address] 33083- 4122 Sep, [place] [address] 67691- 1144 Sep, Type 2 diabetes mellitus without complication, without long- term current use of insulin E11.9 ; Dehydration, mild E86.0 and Dyshidrotic eczema L30.[address] 82621- 9311 Sep, [address] 67946- 3262 Aug, Migraine without status migrainosus, not intractable, unspecified migraine type G43.909 [place] [id number] [place] [address] 73561- 1616 July, [address] 95055- 3117 Jun, Medicare annual wellness visit, subsequent Z00.00 ; Hyperlipidemia E78.5 ; CAD (coronary artery disease) I25.10 and Vaginal cancer C52 [address] 88288- 7939 Jun, Sciatica M54.30 ; Pain in right hip M25.551 ; Dyshidrotic eczema L30.1 ; Candidiasis of breast B37.89 ; Right anterior knee pain M25.561 ; Hyperlipidemia E78.5 and Encounter for immunization Z23 [place] [id number] [place] [address] 28110- 2602 16 May, 2016 Ganglion cyst of joint of finger of left hand M67.[address] 64674- 2412 May, Migraine without status migrainosus, not intractable, unspecified migraine type G43.909 [place] [id number] [place] [address] 64227- 1933 May, [place] [address] 59138- 3538 09 Apr, 2016 Skin lesion of back L98.9 and Encounter for immunization Z23 [place] [id number] [place] [address] 77783- 9843 Mar, Candidal dermatitis B37.2 ; Seborrheic keratoses L82.1 ; Polyneuropathy G62.9 and Dysuria R30.0 [facility] [id number] [place] [address] [id number] Mar, Dental examination Z01.[address] 51050- 8950 Mar, Neuritis M79.2 [place] [address] 41256- 5775 Feb, Drug allergy Z88.9 [place] [address] 96977- 9764 Feb, Dysuria R30.[address] 72716- 2737 Feb, Acute cystitis with hematuria N30.01 [place] [address] 08741- 0361 Feb, Dysuria R30.0 and Acute cystitis with hematuria N30.01 [place] [address] 47593- 2423 Feb, Angina pectoris I20.9 ; Finger pain, left M79.645 ; 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 ; GERD (gastroesophageal reflux disease) K21.9 ; Pain in right hip M25.551 ; Pain in left hip M25.552 and Encounter for screening mammogram for breast cancer Z12.31 [place] [address] 37012- 2365 26 Dec, 2015 Right hip pain M25.551 [place] [address] 56926- 4504 13 Nov, 2015 GERD (gastroesophageal reflux disease) K21.9 ; Vaginal cancer C52 ; Pain in right hip M25.551 and Pain in left hip M25.552 [place] [address] 74079- 4616 19 Oct, 2015 Squamous cell carcinoma C80.[address] 35388- 6063 11 Oct, 2015 Skin lesions L98.9 and Encounter for well woman exam Z01.[address] 97440- 2184 Oct, [place] [address] 26327- 8817 Sep, [facility] [address] 98392 -8618 Aug, Atopic dermatitis, unspecified type L20.9 and Tick bite, initial encounter W57.XXXA [facility] [address] 33901 -0799 Aug, [place] [address] 76497- 4708 July, Pre-procedural laboratory examination Z01.812 [place] [address] 60608- 6869 July, Migraine without status migrainosus, not intractable, unspecified migraine type G43.909 ; Barretts esophagus without dysplasia K22.70 ; Sciatic nerve pain, left M54.32 and Localized swelling, mass and lump, head R22.[address] 02081- 5036 May, [facility] [id number] [place] [address] 06192- 9918 May, [facility] [id number] [place] [address] 27298 -8030 May, Unspecified fall, initial encounter W19.XXXA ; Unspecified place in unspecified non-institutional (private) residence as the place of occurrence of the external cause Y92.009 ; Mid back pain M54.9 ; Rib pain on right side R07.81 ; Buttock pain M79.1 and Post-traumatic headache, unspecified , not intractable G44.309 [place] [address] 14956- 6006 10 Apr, 2015 Hypercholesteremia E78.0 ; Chest discomfort R07.89 ; 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 and History of sciatica Z86.69 [place] [address] 32186- 2835 Mar, Calculus of left kidney N20.0 ; Hyperlipidemia E78.5 ; Degeneration disease of medial meniscus, 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 ; Right knee pain M25.561 ; Sciatica M54.30 ; GERD (gastroesophageal reflux disease) K21.9 and 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 [place] [id number] [place] [address] 55752- 6962 Mar, [place] [id number] [place] [address] 22461- 8570 Mar, [place] [id number] [place] [address] 83176- 4112 Mar, [place] [address] 13885- 4666 Mar, Plantar fasciitis M72.2 [place] [id number] [place] [address] 13049- 0930 Mar, Degeneration disease of medial meniscus, 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 ; Right knee pain M25.561 ; Sciatica M54.30 ; GERD ( gastroesophageal reflux disease) K21.9 and 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 [place] [address] 26391- 8317 Feb, [place] [address] 89498- 3923 Feb, Osteopenia M85.[address] 77035- 7306 Feb, Screening for malignant neoplasm of breast Z12.39 and Encounter for screening mammogram for malignant neoplasm of breast Z12.[address] 21673- 3998 Feb, Hip pain M25.[address] 50675- 0380 Feb, [address] 57775- 5539 Feb, Arthralgia of right hip M25.551 ; Sciatica M54.30 ; GERD ( gastroesophageal reflux disease) K21.9 ; 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 ; CAD ( coronary artery disease) I25.10 and Hyperlipidemia 272.4 [facility] [address] 82029 -5784 Jan, Pharyngitis J02.9 ; Body aches R52 ; Cough R05 and Sinusitis J32.[address] 31645- 6962 Nov, Contusion of foot 924.20 and Plantar fasciitis 728.71 [facility] [address] [id number] Oct, Dental examination V72.[address] 04046- 5363 Oct, [facility] [address] [place] [address]- 0026 Oct, Coronary artery disease 414.00 [facility] [id number] [place] [address] 19340- 5506 Oct, Zoster 053.9 [facility] [id number] [place] [address] 71949- 4856 Sep, Pain in joint, ankle and foot 719.47 ; 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.85 ; Cervicalgia 723.1 ; Pain in joint, shoulder region 719.41 ; Coronary artery disease 414.00 and Need for shingles vaccine V04.89 [facility] [id number] [place] [address] [id number] Sep, Dental examination V72.2 [facility] [id number] [place] [address] 66431 2546 Sep, [facility] [id number] [place] [address] 81047- 2446 Aug, [facility] [id number] [place] [address] [id number] July, Dental examination V72.2 [facility] [id number] [place] [address] 69289- 8316 July, Cough 786.2 [facility] [id number] [place] [address] 59612- 6420 July, Sinusitis 473.9 and Means esophagus 530.85 [facility] [id number] [place] [address] 73850- 2206 Jun, [facility] [id number] [place] [address] 27167- 9066 Jun, [facility] [id number] [place] [address] 86559- 1266 May, [facility] [address] [address] 2546 May, [facility] [id number] [place] [address]- 4679 May, [facility] [place] [facility] [address] [id number] [place] [address]- 6717 May, [facility] [place] [facility] [address] [id number] [place] [address]- 6720 May, [facility] [place] [facility] [address] [id number] [place] [address]- 4169 May, [facility] [place] [facility] [address] [id number] [place] [address]- 1051 May, [facility] [place] [facility] [address] [id number] [place] [address]- 4106 May, [facility] [place] [facility] [address] [id number] [place] [address]- 4709 Apr, [facility] [place] [facility] [address] [id number] [place] [address]- 4895 Apr, [facility] [place] [facility] [address] [id number] [place] [address]- 8584 Apr, [facility] [place] [facility] [address] [id number] [place] [address]- 3842 Mar, [facility] [place] [facility] [address] [id number] [place] [address]- 2215 Mar, [facility] [place] [facility] [address] [id number] [place] [address]- 8266 Mar, [facility] [place] [facility] [address] [id number] [place] [address]- 1140 Mar, [facility] [place] [facility] [address] [id number] [place] [address]- 8050 Feb, [facility] [place] [facility] [address] [id number] [place] [address]- 2636 Feb, [facility] [place] [facility] [address] [id number] [place] [address]- 7917 Feb, [facility] [place] [facility] [address] [id number] [place] [address]- 1213 Feb, [facility] [place] [facility] [address] [id number] [place] [address]- 3598 Feb, [facility] [place] [facility] [address] [id number] [place] 2595 Feb, [facility] [place] [facility] [address] [id number] [place] [address]- 6389 Feb, [facility] [place] [facility] [address] [id number] [place] [address]- 6405 Jan, [facility] [place] [facility] [address] [id number] [place] [address]- 3178 Jan, [facility] [place] [facility] [address] [id number] [place] [address]- 9415 Jan, [facility] [place] [facility] [address] [id number] [place] [address]- 4779 Jan, [facility] [place] [facility] [address] [id number] [place] [address]- 4066 Dec, [facility] [place] [facility] [address] [id number] [place] [address]- 8518 Dec, [facility] [place] [facility] [address] [id number] [place] [address]- 3934 Dec, [facility] [place] [facility] [address] [id number], [place] [address]- 3844 Dec, [facility] [place] [facility] [address] [id number] [place] [address]- 5939 Dec, [facility] [place] [facility] [address] [id number] [place]- 1180 Dec, [facility] [place] [facility] [address] [id number] [place]- 5491 24 Nov, 2013 [facility] [place] [facility] [address] [id number] [place] [address]- 7743 Nov, 2013 [facility] [place] [facility] [address] [id number] [place] [address]- 4408 23 Nov, 2013 [facility] [place] [facility] [address] [id number] [place] [address]- 8281 Nov, [facility] [place] [facility] [address] [id number] [place] [address]- 5068 Nov, [facility] [place] [facility] [address] [id number] [place] [address]- 0602 Nov, [facility] [place] [facility] [address] [id number] [place] [address]- 1402 Nov, [facility] [place] [facility] [address] [id number] [place] [address]- 7730 Oct, [facility] [place] [facility] [address] [id number] [place] [address]- 6591 Oct, [facility] [place] [facility] [address] [id number] [place] [address]- 5284 Oct, [facility] [place] [facility] [address] [id number] [place] [address]- 6765 Oct, [facility] [place] [facility] [address] [id number] [place] [address]- 0532 Oct, [facility] [place] [facility] [address] [id number] [place] [address]- 3968 Oct, [facility] [place] [facility] [address] [id number] [place] [address]- 7079 Oct, [facility] [place] [facility] [address] [id number] [place] [address]- 6583 Oct, [facility] [place] [facility] [address] [id number] [place] [address]- 6148 Oct, [facility] [place] [facility] [address] [id number] [place] [address]- 0218 Sep, [facility] [place] [facility] [address] [id number] [place] [address]- 4142 14 Sep, 2013 [facility] [place] [facility] [address] [id number] [place] [address]- 9698 Sep, 2013 [facility] [place] [facility] [address] [id number] [place] [address]- 5834 Sep, 2013 [facility] [place] [facility] [address] [id number] [place] [address]- 8569 Sep, 2013 [facility] [place] [facility] [address] [id number] [place] [address]- 3414 Sep, 2013 [facility] [place] [facility] [address] [id number] [place] [address]- 3351 Sep, 2013 [facility] [place] [facility] [address] [id number] [place] [address]- 2359 Sep, [facility] [place] [facility] [address] [id number] [place] [address]- 7379 Sep, [facility] [place] [facility] [address] [id number] [place] [address]- 0185 Aug, [facility] [place] [facility] [address] [id number] [place] [address]- 5272 Aug, [facility] [place] [facility] [address] [id number] [place] [address]- 5366 Jun, [facility] [place] [facility] [address] [id number] [place] [address]- 6128 Jun, [facility] [place] [facility] [address] [id number] [place] [address]- 2215 May, [facility] [place] [facility] [address] [id number] [place] [address]- 9225 May, [facility] [place] [facility] [address] [id number] [place] [address]- 3838 Apr, [facility] [place] [facility] [address] [id number] [place] [address]- 0910 Apr, [facility] [address] [id number] [place] [address]- 4767 Apr, [facility] [place] [facility] [address] [id number] [place] [address]- 9456 Apr, [facility] [address] [id number] [place] [address]- 7810 Feb, [facility] [place] [facility] [address] [id number] [place] [address]- 1804 Feb, [facility] [place] [facility] [address] [id number] [place] [address]- 7157 Jan, [facility] [place] [facility] [address] [id number] [place] 0249 Jan, [facility] [address] [id number] [place] [address]- 7712 Nov, [facility] [place] [facility] [address] [id number] [place] [address]- 4178 Sep, [facility] [place] [facility] [address] [id number] [place] [address]- 5755 Sep, [facility] [place] [facility] [address] [id number] [place] [address]- 9320 Aug, [facility] [place] [facility] [address] [id number] [place] [address]- 1294 Aug, [facility] [place] [facility] [address] [id number] [place] [address] Aug, [facility] [place] [facility] [address] [id number] [place] [address] July, [facility] [place] [facility] [address] [id number] [place] [address] July, [facility] [place] [facility] [address] [id number] [place] [address] July, [facility] [place] [facility] [address] [id number] [place] [address] May, [facility] [address] [id number] [place] [address] May, [facility] [place] [facility] [address] [id number] [place] [address] Jan, [facility] [address] [id number] [place] [address] Jan, [facility] [place] [facility] [address] [id number] [place] [address] Jan, [facility] [address] [id number] [place] [address] Jan, [facility] [place] [facility] [address] [id number] [place] [address] Jan, [facility] [address] [id number] [place] [address] Jan, [facility] [address] [id number] [place] [address] Jan, [facility] [place] [facility] [address] [id number] [place] [address] Jan, [facility] [address] [id number] [place] [address] Dec, [facility] [place] [facility] [address] [id number] [place] [address] Dec, [facility] [place] [facility] [address] [id number] [place] [address] Aug, [facility] [place] [facility] [address] [id number] [place] [address] July, [facility] [place] [facility] [address] [id number] [place] [address] Jun, [facility] [place] [facility] [address] [id number] [place] [address] May, [facility] [address] [facility] [id number] [place] [address] May, [facility] [address] [facility] [id number] [place] [address] May, [facility] [address] [facility] [id number] [place] [address] Jun, 2008 IMMUNIZATIONS No Known Immunizations SOCIAL HISTORY Never Assessed REASON FOR VISIT Requests return call PLAN OF CARE VITAL SIGNS MEDICATIONS Unknown [...]
--- OUTSIDE RECORDS SUMMARY | 2018-02-18 08:24 | XMS REPORT ---
Author Author JANES PECK Organization [facility] Address [address] [place] [address] Care Team Providers Care Mainframe Applications Developer Name Role Phone CISCO JANES Unavailable PROBLEMS Type Condition ICD9-CM Code STW59-HJ Code Onset Dates Condition Status SNOMED Code Problem Angina pectoris I20.9 Active 186555483 Problem Dyshidrotic eczema L30.1 Active 094844309 Problem Polyneuropathy G62.9 Active 62434457 Problem Diverticulitis K57.92 Active 257172351 Problem Other obesity due to excess calories E66.09 Active 575271738 Problem Body mass index (BMI) of 30.0-30.9 in adult Z68.30 Active 169125306 Problem Type 2 diabetes mellitus with diabetic neuropathic arthropathy, 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 Active 733194522 Problem Anxiety F41.9 Active 59202282 Problem Type 2 diabetes mellitus without complication, without long-term current use of insulin E11.9 Active 175783495 Problem GERD (gastroesophageal reflux disease) K21.9 Active 301118875 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 434486894 Problem CAD (coronary artery disease) I25.10 Active 99311963 Problem Trochanteric bursitis of right hip M70.61 Active [id number] Problem Syndrome X, 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 Active 493854013 Problem Seborrheic keratoses L82.1 Active 267597389 Problem Hyperlipidemia E78.5 Active 54686881 Problem Sciatica of right side M54.31 Active 53343056 Problem Vaginal cancer C52 Active 543957455 ALLERGIES No Information ENCOUNTERS Encounter Location Date Diagnosis [facility] [address] [facility] [id number], [place] [address] Jan, [facility] [address] [facility] [id number] [address] Dec, [place] [address] [place] [id number] [place] [address] 91313- 9458 Oct, Onychocryptosis L60.0 and Onychomycosis B35.1 [facility] [address] [place] [id number] [place] [address] 25429- 4665 Oct, Onychomycosis B35.1 ; Onychocryptosis L60.0 and Type 2 diabetes mellitus without complication, without long-term current use of insulin E11.9 [place] [address] [place] [id number] [place] [address] 85710- 9146 Sep, Diverticulitis K57.92 [place] [address] [place] [id number] [place] [address] 18208- 9528 Sep, Diverticulitis K57.92 [place] [address] [place] [id number] [place] [address] 65188- 6323 Sep, [facility] [address] [place] [address] [id number] [place] [address] 99948 -9840 Sep, Diarrhea, unspecified type R19.7 [place] [address] [place] [id number] [place] [address] 60560- 5500 Sep, [place] [address] [place] [id number] [place] [address] 97191- 1804 Sep, Pain in right hip M25.551 [place] [address] [place] [id number] [place] [address] 76746- 5865 Sep, [place] [address] [place] [id number] [place] [address] 11909- 7676 Aug, Acute cystitis with hematuria N30.01 [place] [address] [place] [id number] [place] [address] 98742- 5867 Aug, Type 2 diabetes mellitus without complication, [...] Angina pectoris I20.9 and Vaginal cancer C52 [place] [address] 23291- 2692 Aug, [facility] [address] 95535- 6603 Aug, [place] [address] 03031- 2727 Aug, Vaginal candidiasis B37.3 and Vaginal itching L29.8 [place] [address] 94478- 0427 Aug, Dysuria R30.0 and Acute cystitis with hematuria N30.01 [place] [address] [place] [id number] [place] [address] 04944- 7574 July, [place] [address] 76367- 0826 July, [facility] [address] [place] [id number] [place] [address] 52854- 6429 July, [place] [address] [place] [id number] [place] [address] 78476- 1881 Jun, [facility] [address] [address] [id number] [place] [address] 27594- 1983 Jun, [facility] [id number] [place] [address] 79795 -7754 Jun, Right anterior knee pain M25.561 [facility] [address] [address] [id number] [place] [address] 02393- 4410 Jun, [facility] [address] 54715- 6034 Jun, Type 2 diabetes mellitus with diabetic neuropathic arthropathy, 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 [place] [address] [address] [id number] [place] [address] 78764- 0599 May, Acute non-recurrent maxillary sinusitis J01.00 and Acute suppurative otitis media of left ear without spontaneous rupture of tympanic membrane, recurrence not specified H66.002 [facility] [place] [id number] [place] [address] 88339 -2995 May, Viral upper respiratory tract infection J06.9 [place] [address] [id number] [place] [address] 84933- 1507 Apr, [place] [address] 78024- 6403 Apr, Type 2 diabetes mellitus with diabetic [...] index (BMI) of 32.0-32.9 in adult Z68.32 [place] [id number] [place] [address] 45393- 7771 09 Apr, 2017 Type 2 diabetes mellitus without complication, without long- term current use of insulin E11.9 [place] [address] [place] [id number] [place] [address] 24666- 6113 02 Apr, 2017 Papule R23.8 and Actinic keratosis L57.0 [facility] [place] [address] [address] [id number] [place] [address] 95474 -5700 Mar, Cough R05 ; Encounter for immunization Z23 ; Other viral agents as the cause of diseases classified elsewhere B97.89 and Acute upper respiratory infection, unspecified J06.9 [place] [address] [id number] [place] [address] 84601- 9973 14 Jan, 2017 Migraine without status migrainosus, not intractable, unspecified migraine type G43.909 [place] [address] [place] [id number] [place] [address] 44261- 5421 Sep, [place] [address] 97422- 7848 Sep, Type 2 diabetes mellitus without complication, without long- term current use of insulin E11.9 ; Dehydration, mild E86.0 and Dyshidrotic eczema L30.[address] 93426- 6405 Sep, [address] 33126- 5220 Aug, Migraine without status migrainosus, not intractable, unspecified migraine type G43.909 [place] [address] [place] [id number] [place] [address] 78795- 3812 July, [address] 91253- 8861 Jun, Medicare annual wellness visit, subsequent Z00.00 ; Hyperlipidemia E78.5 ; CAD (coronary artery disease) I25.10 and Vaginal cancer C52 [address] 93471- 0027 Jun, Sciatica M54.30 ; Pain in right hip M25.551 ; Dyshidrotic eczema L30.1 ; Candidiasis of breast B37.89 ; Right anterior knee pain M25.561 ; Hyperlipidemia E78.5 and Encounter for immunization Z23 [place] [id number] [place] [address] 20327- 5201 16 May, 2016 Ganglion cyst of joint of finger of left hand M67.[address] 58380- 2667 May, Migraine without status migrainosus, not intractable, unspecified migraine type G43.909 [place] [address] [place] [id number] [place] [address] 33811- 7584 May, [place] [address] 53743- 6229 09 Apr, 2016 Skin lesion of back L98.9 and Encounter for immunization Z23 [place] [address] [id number] [place] [address] 64101- 9305 Mar, Candidal dermatitis B37.2 ; Seborrheic keratoses L82.1 ; Polyneuropathy G62.9 and Dysuria R30.0 [facility] [address] [place] [id number] [place] [address] [id number] Mar, Dental examination Z01.[address] 43885- 1399 Mar, Neuritis M79.2 [place] [address] 70684- 7301 Feb, Drug allergy Z88.9 [place] [address] 15428- 1855 Feb, Dysuria R30.[address] 85493- 5471 Feb, Acute cystitis with hematuria N30.01 [place] [address] 72747- 1416 Feb, Dysuria R30.0 and Acute cystitis with hematuria N30.01 [place] [address] 23303- 6237 Feb, Angina pectoris I20.9 ; Finger pain, left M79.645 ; 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 ; GERD (gastroesophageal reflux disease) K21.9 ; Pain in right hip M25.551 ; Pain in left hip M25.552 and Encounter for screening mammogram for breast cancer Z12.31 [place] [address] 72678- 9313 26 Dec, 2015 Right hip pain M25.551 [place] [address] 39591- 6877 13 Nov, 2015 GERD (gastroesophageal reflux disease) K21.9 ; Vaginal cancer C52 ; Pain in right hip M25.551 and Pain in left hip M25.552 [place] [address] 34090- 6490 19 Oct, 2015 Squamous cell carcinoma C80.[address] 92963- 8236 11 Oct, 2015 Skin lesions L98.9 and Encounter for well woman exam Z01.[address] 79444- 0131 Oct, [place] [address] 75958- 5758 Sep, [facility] [address] 59777 -0958 Aug, Atopic dermatitis, unspecified type L20.9 and Tick bite, initial encounter W57.XXXA [facility] [address] 43724 -1503 Aug, [place] [address] 69029- 7562 July, Pre-procedural laboratory examination Z01.812 [place] [address] 02406- 9767 July, Migraine without status migrainosus, not intractable, unspecified migraine type G43.909 ; Barretts esophagus without dysplasia K22.70 ; Sciatic nerve pain, left M54.32 and Localized swelling, mass and lump, head R22.[address] 01977- 1790 May, [facility] [address] [address] [id number] [place] [address] 77392- 2490 May, [facility] [address] [address] [id number] [place] [address] 96235 -9413 May, Unspecified fall, initial encounter W19.XXXA ; Unspecified place in unspecified non-institutional (private) residence as the place of occurrence of the external cause Y92.009 ; Mid back pain M54.9 ; Rib pain on right side R07.81 ; Buttock pain M79.1 and Post-traumatic headache, unspecified , not intractable G44.309 [place] [address] 43889- 6690 10 Apr, 2015 Hypercholesteremia E78.0 ; Chest discomfort R07.89 ; 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 and History of sciatica Z86.69 [place] [address] 91889- 5592 Mar, Calculus of left kidney N20.0 ; Hyperlipidemia E78.5 ; Degeneration disease of medial meniscus, 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 ; Right knee pain M25.561 ; Sciatica M54.30 ; GERD (gastroesophageal reflux disease) K21.9 and 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 [place] [address] [id number] [place] [address] 33611- 4530 Mar, [place] [address] [place] [id number] [place] [address] 16629- 1155 Mar, [place] [address] [place] [id number] [place] [address] 98039- 9310 Mar, [place] [address] 89300- 7099 Mar, Plantar fasciitis M72.2 [place] [address] [place] [id number] [place] [address] 59796- 5730 Mar, Degeneration disease of medial meniscus, 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 ; Right knee pain M25.561 ; Sciatica M54.30 ; GERD ( gastroesophageal reflux disease) K21.9 and 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 [place] [address] 68415- 1228 Feb, [place] [address] 59892- 5005 Feb, Osteopenia M85.[address] 99951- 4378 Feb, Screening for malignant neoplasm of breast Z12.39 and Encounter for screening mammogram for malignant neoplasm of breast Z12.[address] 35546- 5551 Feb, Hip pain M25.[address] 22643- 3730 Feb, [address] 71189- 9256 Feb, Arthralgia of right hip M25.551 ; Sciatica M54.30 ; GERD ( gastroesophageal reflux disease) K21.9 ; 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 ; CAD ( coronary artery disease) I25.10 and Hyperlipidemia 272.4 [facility] [address] 08662 -5019 Jan, Pharyngitis J02.9 ; Body aches R52 ; Cough R05 and Sinusitis J32.[address] 76285- 3066 Nov, Contusion of foot 924.20 and Plantar fasciitis 728.71 [facility] [address] [id number] Oct, Dental examination V72.[address] 97165- 0064 Oct, [facility] [address] [place] [address]- 2926 Oct, Coronary artery disease 414.00 [facility] [address] [place] [id number] [place] [address] 88825- 8526 Oct, Zoster 053.9 [facility] [address] [place] [id number] [place] [address] 37083- 2686 Sep, Pain in joint, ankle and foot 719.47 ; 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.85 ; Cervicalgia 723.1 ; Pain in joint, shoulder region 719.41 ; Coronary artery disease 414.00 and Need for shingles vaccine V04.89 [facility] [address] [place] [id number] [place] [address] [id number] Sep, Dental examination V72.2 [facility] [address] [place] [id number] [place] [address] 42986 2546 Sep, [facility] [address] [place] [id number] [place] [address] 90982- 6046 Aug, [facility] [address] [place] [id number] [place] [address] [id number] July, Dental examination V72.2 [facility] [address] [place] [id number] [place] [address] 78532- 5446 July, Cough 786.2 [facility] [address] [place] [id number] [place] [address] 12458- 6849 July, Sinusitis 473.9 and Means esophagus 530.85 [facility] [address] [address] [id number] [place] [address] 45846- 2466 Jun, [facility] [address] [place] [address] [id number] [place] [address] 22456- 0966 Jun, [facility] [address] [place] [id number] [place] [address] 79719- 4896 May, [facility] [address] [address] 2546 May, [facility] [address] [place] [id number] [address]- 0799 May, [facility] [place] [facility] [address] [id number] [place] [address]- 3620 May, [facility] [place] [facility] [address] [id number] [place] [address]- 9953 May, [facility] [place] [facility] [address] [id number] [place] [address]- 7176 May, [facility] [place] [facility] [address] [id number] [place] [address]- 1674 May, [facility] [place] [facility] [address] [id number] [place] [address]- 6216 May, [facility] [place] [facility] [address] [id number] [place] [address]- 6071 Apr, [facility] [place] [facility] [address] [id number] [place] [address]- 6467 Apr, [facility] [place] [facility] [address] [id number] [place] [address]- 4954 Apr, [facility] [place] [facility] [address] [id number] [place] [address]- 4686 Mar, [facility] [place] [facility] [address] [id number] [place] [address]- 1573 Mar, [facility] [place] [facility] [address] [id number] [place] [address]- 1560 Mar, [facility] [place] [facility] [address] [id number] [place] [address]- 4606 Mar, [facility] [place] [facility] [address] [id number] [place] [address]- 4573 Feb, [facility] [place] [facility] [address] [id number] [place] [address]- 2056 Feb, [facility] [place] [facility] [address] [id number] [place] [address]- 9588 Feb, [facility] [place] [facility] [address] [id number] [place] [address]- 4902 Feb, [facility] [place] [facility] [address] [id number] [place] [address]- 4250 Feb, [facility] [place] [facility] [address] [id number] [place] 5749 Feb, [facility] [place] [facility] [address] [id number] [place] [address]- 3005 Feb, [facility] [place] [facility] [address] [id number] [place] [address]- 9540 Jan, [facility] [place] [facility] [address] [id number] [place] [address]- 9907 Jan, [facility] [place] [facility] [address] [id number] [place] [address]- 1335 Jan, [facility] [place] [facility] [address] [id number] [place] [address]- 2314 Jan, [facility] [place] [facility] [address] [id number] [place] [address]- 5751 Dec, [facility] [place] [facility] [address] [id number] [place] [address]- 5103 Dec, [facility] [place] [facility] [address] [id number] [place] [address]- 7115 Dec, [facility] [place] [facility] [address] [id number], [place] [address]- 9328 Dec, [facility] [place] [facility] [address] [id number] [place] [address]- 7686 Dec, [facility] [place] [facility] [address] [id number] [place] 6669 Dec, [facility] [place] [facility] [address] [id number] [place] 5732 24 Nov, 2013 [facility] [place] [facility] [address] [id number] [place] [address]- 2661 Nov, 2013 [facility] [place] [facility] [address] [id number] [place] [address]- 8177 23 Nov, 2013 [facility] [place] [facility] [address] [id number] [place] [address]- 1981 Nov, [facility] [place] [facility] [address] [id number] [place] [address]- 1338 Nov, [facility] [place] [facility] [address] [id number] [place] [address]- 8111 Nov, [facility] [place] [facility] [address] [id number] [place] [address]- 2158 Nov, [facility] [place] [facility] [address] [id number] [place] [address]- 8770 Oct, [facility] [place] [facility] [address] [id number] [place] [address]- 6286 Oct, [facility] [place] [facility] [address] [id number] [place] [address]- 0871 Oct, [facility] [place] [facility] [address] [id number] [place] [address]- 0318 Oct, [facility] [place] [facility] [address] [id number] [place] [address]- 1774 Oct, [facility] [place] [facility] [address] [id number] [place] [address]- 5858 Oct, [facility] [place] [facility] [address] [id number] [place] [address]- 2870 Oct, [facility] [place] [facility] [address] [id number] [place] [address]- 6399 Oct, [facility] [place] [facility] [address] [id number] [place] [address]- 6382 Oct, [facility] [place] [facility] [address] [id number] [place] [address]- 9626 Sep, [facility] [place] [facility] [address] [id number] [place] [address]- 6725 14 Sep, 2013 [facility] [place] [facility] [address] [id number] [place] [address]- 2860 Sep, 2013 [facility] [place] [facility] [address] [id number] [place] [address]- 4816 Sep, 2013 [facility] [place] [facility] [address] [id number] [place] [address]- 4997 Sep, 2013 [facility] [place] [facility] [address] [id number] [place] [address]- 4030 Sep, 2013 [facility] [place] [facility] [address] [id number] [place] [address]- 4103 Sep, 2013 [facility] [place] [facility] [address] [id number] [place] [address]- 1445 Sep, [facility] [place] [facility] [address] [id number] [place] [address]- 7494 Sep, [facility] [place] [facility] [address] [id number] [place] [address]- 8065 Aug, [facility] [place] [facility] [address] [id number] [place] [address]- 4402 Aug, [facility] [place] [facility] [address] [id number] [place] [address]- 2653 Jun, [facility] [place] [facility] [address] [id number] [place] [address]- 9929 Jun, [facility] [place] [facility] [address] [id number] [place] [address]- 3287 May, [facility] [place] [facility] [address] [id number] [place] [address]- 0736 May, [facility] [place] [facility] [address] [id number] [place] [address]- 6319 Apr, [facility] [place] [facility] [address] [id number] [place] [address]- 6491 Apr, [facility] [address] [id number] [place] [address]- 6815 Apr, [facility] [place] [facility] [address] [id number] [place] [address]- 9806 Apr, [facility] [address] [id number] [place] [address]- 7962 Feb, [facility] [place] [facility] [address] [id number] [place] [address]- 0373 Feb, [facility] [place] [facility] [address] [id number] [place] [address]- 0299 Jan, [facility] [place] [facility] [address] [id number] [place] 1815 Jan, [facility] [address] [id number] [place] [address]- 3038 Nov, [facility] [place] [facility] [address] [id number] [place] [address]- 2734 Sep, [facility] [place] [facility] [address] [id number] [place] [address]- 2313 Sep, [facility] [place] [facility] [address] [id number] [place] [address]- 3400 Aug, [facility] [place] [facility] [address] [id number] [place] [address]- 4088 Aug, [facility] [place] [facility] [address] [id number] [place] [address] Aug, [facility] [place] [facility] [address] [id number] [place] [address] July, [facility] [place] [facility] [address] [id number] [place] [address] July, [facility] [place] [facility] [address] [id number] [place] [address] July, [facility] [place] [facility] [address] [id number] [place] [address] May, [facility] [address] [id number] [place] [address] May, [facility] [place] [facility] [address] [id number] [place] [address] Jan, [facility] [address] [id number] [place] [address] Jan, [facility] [place] [facility] [address] [id number] [place] [address] Jan, [facility] [address] [id number] [place] [address] Jan, [facility] [place] [facility] [address] [id number] [place] [address] Jan, [facility] [address] [id number] [place] [address] Jan, [facility] [address] [id number] [place] [address] Jan, [facility] [place] [facility] [address] [id number] [place] [address] Jan, [facility] [address] [id number] [place] [address] Dec, [facility] [place] [facility] [address] [id number] [place] [address] Dec, [facility] [place] [facility] [address] [id number] [place] [address] Aug, [facility] [place] [facility] [address] [id number] [place] [address] July, [facility] [place] [facility] [address] [id number] [place] [address] Jun, [facility] [place] [facility] [address] [id number] [place] [address] May, [facility] [address] [facility] [id number] [place] [address] May, [facility] [address] [facility] [id number] [place] [address] 2011 [facility] [address] [facility] [id number] [place] [address] Jun, 2008 IMMUNIZATIONS No Known Immunizations SOCIAL HISTORY Never Assessed REASON FOR VISIT Lab Order for MRI PLAN OF CARE VITAL SIGNS MEDICATIONS Unknown Medications RESULTS Name Result Date Reference Range BUN BUN UREA NITROGEN (BUN) CREATININE, SERUM Creatinine, Serum eGFR If NonAfricn Am eGFR If Africn Am CREATININE eGFR NON-AFR. N[place] eGFR PROCEDURES Procedure Date Ordered Result Body Site LAB NOT BILLED BY [facility] September 26, 2017 INSTRUCTIONS MEDICATIONS ADMINISTERED No Known Medications [...]
--- OUTSIDE RECORDS SUMMARY | 2018-02-18 08:25 | XMS REPORT ---
Author Author JANES PECK Organization [facility] Address [address] [place] [address] Care Team Providers Care Correctional Program Specialist Name Role Phone JANES PECK Unavailable PROBLEMS Type Condition ICD9-CM Code PYK89-TV Code Onset Dates Condition Status SNOMED Code Problem Angina pectoris I20.9 Active 875599829 Problem Dyshidrotic eczema L30.1 Active 390898570 Problem Polyneuropathy G62.9 Active 60982213 Problem Diverticulitis K57.92 Active 390178658 Problem Other obesity due to excess calories E66.09 Active 730284152 Problem Body mass index (BMI) of 30.0-30.9 in adult Z68.30 Active 849559255 Problem Type 2 diabetes mellitus with diabetic neuropathic arthropathy, 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 Active 672897141 Problem Anxiety F41.9 Active 79021333 Problem Type 2 diabetes mellitus without complication, without long-term current use of insulin E11.9 Active 071043877 Problem GERD (gastroesophageal reflux disease) K21.9 Active 166167183 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 993991016 Problem CAD (coronary artery disease) I25.10 Active 13426898 Problem Trochanteric bursitis of right hip M70.61 Active [id number] Problem Syndrome X, 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 Active 719421942 Problem Seborrheic keratoses L82.1 Active 825113207 Problem Hyperlipidemia E78.5 Active 22054332 Problem Sciatica of right side M54.31 Active 62012723 Problem Vaginal cancer C52 Active 171690914 ALLERGIES Substance Reaction Event Type Date Status Pentazocine-Naloxone itching Drug Allergy Aug, Active Cipro Unknown Drug Allergy Aug, Active Actifed palpitations Drug Allergy Aug, Active Oxycodone unable to take more than 1 Drug Allergy Aug, Active Morphine Abdominal pain with IV form Drug Allergy Aug, Active ENCOUNTERS Encounter Location Date Diagnosis [facility] [id number] [place] [address] 99665- 8549 Jan, [facility] [id number] [place] [address] 00045- 6019 Dec, [facility] [id number] [place] [address] 86979- 3752 Oct, Onychocryptosis L60.0 and Onychomycosis B35.1 [facility] [id number] [place] [address] 51910- 3177 Oct, Onychomycosis B35.1 ; Onychocryptosis L60.0 and Type 2 diabetes mellitus without complication, without long-term current use of insulin E11.9 [facility] [id number] [place] [address] 74424- 3045 Sep, Diverticulitis K57.92 [place] [id number] [place] [address] 09477- 1239 Sep, Diverticulitis K57.92 [place] [id number] [place] [address] 47130- 6870 Sep, [facility] [id number] [place] [address] 33500 -9579 Sep, Diarrhea, unspecified type R19.7 [place] [id number] [place] [address] 45974- 2966 Sep, [facility] [id number] [place] [address] 94052- 4825 Sep, Pain in right hip M25.551 [place] [id number] [place] [address] 95762- 6448 Sep, [place] [address] [place] [address] 61635- 5264 Aug, Acute cystitis with hematuria N30.01 [facility] [id number] [place] [address] 1789 29 Aug, 2017 Type 2 diabetes mellitus [...] Angina pectoris I20.9 and Vaginal cancer C52 [place] [address] 04634- 7250 Aug, [place] [address] 63375- 0474 Aug, [place] [address] 08056- 7971 05 Aug, 2017 Vaginal candidiasis B37.3 and Vaginal itching L29.8 [place] [address] 87122- 1957 Aug, Dysuria R30.0 and Acute cystitis with hematuria N30.01 [place] [id number] [place] [address] 76692- 0472 July, [place] [address] 57570- 5195 July, [facility] [id number] [place] [address] 29365- 2356 July, [place] [address] 87099- 9438 Jun, [facility] [id number] [place] [address] 42631- 1855 Jun, [facility] [address] 87018 -9580 Jun, Right anterior knee pain M25.561 [facility] [address] [place] [address] 06978- 7632 Jun, [place] [id number] [place] [address] 91320- 0249 Jun, Type 2 diabetes mellitus with diabetic neuropathic arthropathy, 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 [place] [id number] [place] [address] 55711- 8331 May, Acute non-recurrent maxillary sinusitis J01.00 and Acute suppurative otitis media of left ear without spontaneous rupture of tympanic membrane, recurrence not specified H66.002 [facility] [id number] [place] [address] 85533 -5981 May, Viral upper respiratory tract infection J06.9 [place] [id number] [place] [address] 69902- 8513 Apr, [place] [id number] [place] [address] 34373- 6500 Apr, Type 2 diabetes mellitus with diabetic [...] index (BMI) of 32.0-32.9 in adult Z68.32 [place] [address] 15440- 8939 Apr, Type 2 diabetes mellitus without complication, without long- term current use of insulin E11.9 [place] [address] [place] [address] 95542- 0740 Apr, Papule R23.8 and Actinic keratosis L57.0 [facility] [address] [place] [address] 67583 -3097 Mar, Cough R05 ; Encounter for immunization Z23 ; Other viral agents as the cause of diseases classified elsewhere B97.89 and Acute upper respiratory infection, unspecified J06.9 [place] [id number] [place] [address] 56352- 3455 14 Jan, 2017 Migraine without status migrainosus, not intractable, unspecified migraine type G43.909 [place] [address] [place] [address] 48007- 7478 17 Sep, 2016 [place] [address] 10921- 0877 13 Sep, 2016 Type 2 diabetes mellitus without complication, without long- term current use of insulin E11.9 ; Dehydration, mild E86.0 and Dyshidrotic eczema L30.1 [place] [address] [place] [address] 81579- 2610 Sep, [place] [address] [place] [address] 77460- 6157 Aug, Migraine without status migrainosus, not intractable, unspecified migraine type G43.909 [place] [address] [place] [address] 09165- 9770 July, [place] [address] [place] [address] 21402- 0927 Jun, Medicare annual wellness visit, subsequent Z00.00 ; Hyperlipidemia E78.5 ; CAD (coronary artery disease) I25.10 and Vaginal cancer C52 [place] [address] 72577- 2598 Jun, Sciatica M54.30 ; Pain in right hip M25.551 ; Dyshidrotic eczema L30.1 ; Candidiasis of breast B37.89 ; Right anterior knee pain M25.561 ; Hyperlipidemia E78.5 and Encounter for immunization Z23 [facility] [id number] [place] [address] 35007- 5393 May, Ganglion cyst of joint of finger of left hand M67.442 [facility] [id number] [place] [address] 59124- 1850 May, Migraine without status migrainosus, not intractable, unspecified migraine type G43.909 [place] [address] 65012- 2713 May, [place] [address] 61275- 9795 Apr, Skin lesion of back L98.9 and Encounter for immunization Z23 [place] [address] [place] [address] 83376- 5887 Mar, Candidal dermatitis B37.2 ; Seborrheic keratoses L82.1 ; Polyneuropathy G62.9 and Dysuria R30.0 [facility] [id number] [place] [address] [id number] Mar, Dental examination Z01.20 [place] [address] 52759- 1427 Mar, Neuritis M79.2 [place] [address] 08829- 9697 Feb, Drug allergy Z88.9 [place] [address] [place] [address] 19751- 2998 Feb, Dysuria R30.0 [place] [address] 21467- 4609 Feb, Acute cystitis with hematuria N30.01 [facility] [address] 93128- 9606 Feb, Dysuria R30.0 and Acute cystitis with hematuria N30.01 [facility] [address] 84417- 2905 Feb, Angina pectoris I20.9 ; Finger pain, left M79.645 ; 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 ; GERD (gastroesophageal reflux disease) K21.9 ; Pain in right hip M25.551 ; Pain in left hip M25.552 and Encounter for screening mammogram for breast cancer Z12.[address] 21212- 4024 Dec, Right hip pain M25.[address] 59781- 0134 13 Nov, 2015 GERD (gastroesophageal reflux disease) K21.9 ; Vaginal cancer C52 ; Pain in right hip M25.551 and Pain in left hip M25.[address] 17942- 5177 Oct, Squamous cell carcinoma C80.[address] 24053- 2525 Oct, Skin lesions L98.9 and Encounter for well woman exam Z01.[address] 81714- 4055 Oct, [address] 36709- 1258 Sep, [facility] [address] 65389 -3672 Aug, Atopic dermatitis, unspecified type L20.9 and Tick bite, initial encounter W57.XXXA [facility] [address] 63359 -5990 Aug, [address] 26965- 8481 July, Pre-procedural laboratory examination Z01.[address] 05180- 2403 July, Migraine without status migrainosus, not intractable, unspecified migraine type G43.909 ; Barretts esophagus without dysplasia K22.70 ; Sciatic nerve pain, left M54.32 and Localized swelling, mass and lump, head R22.0 [facility] [id number] [place] [address] 92875- 8904 May, [facility] [id number] [place] [address] 04767- 8420 May, 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 and History of sciatica Z86.69 [place] [address] [place] [address] 95237- 1101 Mar, Hyperlipidemia E78.5 ; Calculus of left kidney N20.0 ; Degeneration disease of medial meniscus, 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 ; Right knee pain M25.561 ; Sciatica M54.30 ; GERD (gastroesophageal reflux disease) K21.9 and 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 [place] [address] [place] [address] 08292- 1424 Mar, [place] [address] 65606- 7378 Mar, [place] [address] [place] [address] 91652- 4761 Mar, [place] [address] 12273- 4368 Mar, Plantar fasciitis M72.[address] 63922- 1172 Mar, Degeneration disease of medial meniscus, 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 ; Right knee pain M25.561 ; Sciatica M54.30 ; GERD ( gastroesophageal reflux disease) K21.9 and 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 71900- 6755 Feb, [address] 50895- 4639 Feb, Osteopenia M85.[address] 56451- 2554 Feb, Screening for malignant neoplasm of breast Z12.39 and Encounter for screening mammogram for malignant neoplasm of breast Z12.[address] 51162- 1864 Feb, Hip pain M25.[address] 80626- 4210 Feb, [address] 91417- 2886 Feb, Arthralgia of right hip M25.551 ; Sciatica M54.30 ; GERD ( gastroesophageal reflux disease) K21.9 ; 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 [address] 07810 -1509 06 Jan, 2015 Pharyngitis J02.9 ; Body aches R52 ; Cough R05 and Sinusitis J32.9 [facility] [address] [place] [address] 74019- 3184 11 Nov, 2014 Contusion of foot 924.20 and Plantar fasciitis 728.71 [facility] [address] [id number] Oct, Dental examination V72.2 [facility] [id number] [place] [address] 84247- 4406 Oct, [facility] [address] [place] [address] 62842 2546 Oct, Coronary artery disease 414.00 [facility] [address] 80176- 0696 Oct, Zoster 053.9 [facility] [address] [place] [address] 58276- 9569 Sep, Pain in joint, ankle and foot 719.47 ; Fry's esophagus 530.85 ; Cervicalgia 723.1 ; Pain in joint, shoulder region 719.41 ; Coronary artery disease 414.00 and Need for shingles vaccine V04.89 [facility] [id number] [place] [address] [id number] Sep, Dental examination V72.2 [facility] [id number] [place] [address] 64265- 4146 Sep, [facility] [address] [place] [address] 40043- 9846 Aug, [facility] [id number] [place] [address] [id number] July, Dental examination V72.2 [facility] [id number] [place] [address] 75066- 4776 July, Cough 786.2 [facility] [id number] [place] [address] 25597- 0300 July, Sinusitis 473.9 and Fry esophagus 530.85 [facility] [id number] [place] [address] 50341- 7836 Jun, [facility] [id number] [place] [address] 245593- 5303 Jun, [facility] [place] [facility] [address] [id number] [place] [address]- 4588 May, [facility] [place] [facility] [address] [id number] [place] [address]- 7819 May, [facility] [place] [facility] [address] [id number] [place] [address]- 9045 May, [facility] [place] [facility] [address] [id number] [place] [address]- 7371 May, [facility] [place] [facility] [address] [id number] [place] [address]- 5918 May, [facility] [place] [facility] [address] [id number] [place] [address]- 9702 May, [facility] [place] [facility] [address] [id number] [place] [address]- 6501 May, [facility] [place] [facility] [address] [id number] [place] [address]- 0947 May, [facility] [place] [facility] [address] [id number] [place] [address]- 0747 Apr, [facility] [place] [facility] [address] [id number] [place] [address]- 9933 Apr, [facility] [place] [facility] [address] [id number] [place] [address]- 3669 Apr, [facility] [place] [facility] [address] [id number] [place] [address]- 3375 Mar, [facility] [place] [facility] [address] [id number] [place] [address]- 7276 Mar, [facility] [place] [facility] [address] [id number] [place] [address]- 0318 Mar, [facility] [place] [facility] [address] [id number] [place] [address]- 9899 Mar, [facility] [place] [facility] [address] [id number], [place] [address]- 8175 Feb, [facility] [place] [facility] [address] [id number] [place] 5069 Feb, [facility] [place] [facility] [address] [id number] [place] [address]- 1698 Feb, [facility] [place] [facility] [address] [id number] [place] [address]- 3758 Feb, [facility] [place] [facility] [address] [id number] [place] [address]- 0470 Feb, [facility] [place] [facility] [address] [id number] [place] [address]- 6362 Feb, [facility] [place] [facility] [address] [id number] [place] [address]- 2108 Feb, [facility] [place] [facility] [address] [id number] [place] [address]- 1483 Jan, [facility] [place] [facility] [address] [id number] [place] [address]- 2924 Jan, [facility] [place] [facility] [address] [id number] [place] [address]- 8068 Jan, [facility] [place] [facility] [address] [id number] [place] [address]- 8835 Jan, [facility] [place] [facility] [address] [id number], [place] [address]- 2122 Dec, [facility] [place] [facility] [address] [id number], [place] [address]- 3098 Dec, [facility] [place] [facility] [address] [id number] [place] [address]- 9275 Dec, [facility] [place] [facility] [address] [id number] [place] [address]- 3112 Dec, [facility] [place] [facility] [address] [id number], [place] [address]- 7463 Dec, [facility] [place] [facility] [address] [id number] [place] [address]- 4042 16 Dec, 2013 [facility] [place] [facility] [address] [id number] [place] [address]- 5051 24 Nov, 2013 [facility] [place] [facility] [address] [id number] [place] [address]- 8667 23 Nov, 2013 [facility] [place] [facility] [address] [id number] [place] [address]- 5749 23 Nov, 2013 [facility] [place] [facility] [address] [id number] [place] [address]- 9265 17 Nov, 2013 [facility] [place] [facility] [address] [id number] [place] [address]- 3746 17 Nov, 2013 [facility] [place] [facility] [address] [id number] [place] [address]- 8399 05 Nov, 2013 [facility] [place] [facility] [address] [id number] [place] [address]- 5838 Nov, [facility] [place] [facility] [address] [id number] [place] [address]- 2137 Oct, [facility] [place] [facility] [address] [id number] [place] [address]- 7541 Oct, [facility] [place] [facility] [address] [id number] [place] [address]- 5617 Oct, [facility] [place] [facility] [address] [id number] [place] [address]- 7796 Oct, [facility] [place] [facility] [address] [id number] [place] [address]- 5755 Oct, [facility] [place] [facility] [address] [id number] [place] [address]- 5137 Oct, [facility] [place] [facility] [address] [id number] [place] [address]- 8644 Oct, [facility] [place] [facility] [address] [id number] [place] [address]- 7177 Oct, [facility] [place] [facility] [address] [id number] [place] [address]- 9357 Oct, [facility] [place] [facility] [address] [id number] [place] [address]- 0773 Sep, [facility] [place] [facility] [address] [id number] [place] [address]- 0979 Sep, [facility] [place] [facility] [address] [id number] [place] [address]- 2885 Sep, [facility] [place] [facility] [address] [id number] [place] [address]- 0247 Sep, [facility] [place] [facility] [address] [id number] [place] [address]- 7217 Sep, [facility] [place] [facility] [address] [id number] [place] [address]- 5844 Sep, [facility] [place] [facility] [address] [id number] [place] [address]- 2160 Sep, [facility] [place] [facility] [address] [id number] [place] [address]- 1302 Sep, [facility] [place] [facility] [address] [id number] [place] [address]- 5084 Sep, [facility] [place] [facility] [address] [id number] [place] [address]- 1416 Aug, [facility] [place] [facility] [address] [id number] [place] [address]- 0495 Aug, [facility] [place] [facility] [address] [id number] [place] [address]- 7336 Jun, [facility] [place] [facility] [address] [id number] [place] [address]- 2857 Jun, [facility] [place] [facility] [address] [id number] [place] [address]- 8817 May, [facility] [place] [facility] [address] [id number] [place] [address]- 5398 May, [facility] [address] [id number] [place] [address]- 3215 Apr, [facility] [place] [facility] [address] [id number] [place] [address]- 1836 Apr, [facility] [place] [facility] [address] [id number] [place] [address]- 3036 Apr, [facility] [place] [facility] [address] [id number] [place] [address]- 2936 Apr, [facility] [address] [id number] [place] [address]- 8077 Feb, [facility] [place] [facility] [address] [id number] [place] [address]- 3370 Feb, [facility] [address] [id number] [place] [address]- 8885 Jan, [facility] [place] [facility] [address] [id number] [place] [address]- 3041 Jan, [facility] [place] [facility] [address] [id number] [place] [address]- 4445 Nov, [facility] [place] [facility] [address] [id number] [place] [address]- 2733 Sep, [facility] [place] [facility] [address] [id number] [place] [address]- 8625 Sep, [facility] [place] [facility] [address] [id number] [place] [address] Aug, [facility] [place] [facility] [address] [id number] [place] [address] Aug, [facility] [place] [facility] [address] [id number] [place] [address] Aug, [facility] [place] [facility] [address] [id number] [place] [address] July, [facility] [place] [facility] [address] [id number] [place] [address] July, [facility] [place] [facility] [address] [id number] [place] [address] July, [facility] [place] [facility] [address] [id number] [place] [address] May, [facility] [place] [facility] [address] [id number] [place] [address] May, [facility] [place] [facility] [address] [id number] [place] [address] Jan, [facility] [place] [facility] [address] [id number] [place] [address] Jan, [facility] [place] [facility] [address] [id number] [place] [address] Jan, [facility] [place] [facility] [address] [id number] [place] [address] Jan, [facility] [place] [facility] [address] [id number] [place] [address] Jan, [facility] [place] [facility] [address] [id number] [place] [address] Jan, [facility] [place] [facility] [address] [id number] [place] [address] Jan, [facility] [place] [facility] [address] [id number] [place] [address] Jan, [facility] [place] [facility] [address] [id number] [place] [address] Dec, [facility] [place] [facility] [address] [id number] [place] [address] Dec, [facility] [place] [facility] [address] [id number] [place] [address] Aug, [facility] [place] [facility] [address] [id number], [place] [address] July, [facility] [address] [facility] [id number] [place] [address] Jun, [facility] [address] [facility] [id number], [place] [address] May, [facility] [address] [facility] [id number], [place] [address] May, [facility] [address] [facility] [id number], [place] [address] May, [facility] [address] [facility] [id number], [place] [address] Jun, IMMUNIZATIONS No Known Immunizations SOCIAL HISTORY Never Assessed REASON FOR VISIT Diabetes PLAN OF CARE Activity Details Follow Up 3 Months, prn Reason:CHM/DM VITAL SIGNS Height 68 in 2017-09-20 Weight 202.3 lbs 2017-09-20 Temperature 97.6 degrees Fahrenheit 2017-09-20 Heart Rate 81 bpm 2017-09-20 Respiratory Rate 20 2017-09-20 BMI 30.76 kg/m2 2017-09-20 Blood pressure systolic 118 mmHg 2017-09-20 Blood pressure diastolic 76 mmHg 2017-09-20 MEDICATIONS Medication Instructions Dosage Frequency Start Date End Date Duration Status Metformin HCl 500 MG TAKE ONE TABLET BY MOUTH ONCE DAILY WITH EVENING MEAL Active Percocet 5-325 MG Orally 2 times a day as needed 1 tablet as needed Jan, Active Nitrostat 0.4 MG DISSOLVE ONE TABLET SUBLINGUALLY NEEDED FOR CHEST PAIN ; MAY REPEAT TWO TIMES EVERY 5 MINUTES THEN GO TO ER Active Pravastatin Sodium 20 MG TAKE ONE TABLET BY MOUTH ONCE DAILY Active Cyclobenzaprine HCl 10 mg 1 tablet Active Centrum Silver 50+Women - Active Calcium Magnesium Active HydrOXYzine HCl 25 MG TAKE ONE TABLET BY MOUTH EVERY 8 HOURS NEEDED Active B Complex Orally Once a day 24h Active [place] 3-6-9 Active Pantoprazole Sodium 40 mg orally Once a day, for fry's esoph. 1 tablet Active Vitamin D3 Ultra Strength 5000 UNIT Orally twice a day 1 capsule 12h Active Glucocard Expression Test 1 subcutaneously 2 times a day test 2 times per day 12h July, Active Carafate 1 GM TAKE ONE TABLET BY MOUTH FOUR TIMES DAILY Active Cinnamon Orally 2 times a day 12h Active Eliquis 5 mg Orally 2 times a day 1 tablet 12h 17 Jul, 2017 Active Melatonin 5 MG Orally Once a day 1 tablet at bedtime as needed with food 24h Not-Taking RESULTS Name Result Date Reference Range A1C (IN HOUSE) 2017-09-20 A1C IN HOUSE 6.1 4.3 - 5.6 % Previous A1c 6.3 Lot [id number] Exp date 06/11 MRI : Hip, Right 2017-09-27 PROCEDURES Procedure Date Ordered Result Body Site GLYCATED HEMOGLOBIN TEST September 20, 2017 [facility] VISIT ESTABLISHED PATIENT September 20, 2017 INSTRUCTIONS MEDICATIONS ADMINISTERED No Known Medications [...]
--- OUTSIDE RECORDS SUMMARY | 2018-02-18 08:26 | XMS REPORT ---
Author Author JANES PECK Organization [facility] [place] Address [address] [place] [address] Care Team Providers Care Business Account Leader Name Role Phone JANES PECK Unavailable PROBLEMS Type Condition ICD9-CM Code PNX76-ZB Code Onset Dates Condition Status SNOMED Code Problem Angina pectoris I20.9 Active 951258984 Problem Dyshidrotic eczema L30.1 Active 806097916 Problem Polyneuropathy G62.9 Active 12063722 Problem Diverticulitis K57.92 Active 497569787 Problem Other obesity due to excess calories E66.09 Active 100052768 Problem Body mass index (BMI) of 30.0-30.9 in adult Z68.30 Active 189097082 Problem Type 2 diabetes mellitus with diabetic neuropathic arthropathy, 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 Active 014509031 Problem Anxiety F41.9 Active 04699604 Problem Type 2 diabetes mellitus without complication, without long-term current use of insulin E11.9 Active 164969367 Problem GERD (gastroesophageal reflux disease) K21.9 Active 075326832 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 333123546 Problem CAD (coronary artery disease) I25.10 Active 61671009 Problem Trochanteric bursitis of right hip M70.61 Active [id number] Problem Syndrome X, 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 Active 194539679 Problem Seborrheic keratoses L82.1 Active 225076245 Problem Hyperlipidemia E78.5 Active 48891197 Problem Sciatica of right side M54.31 Active 22803332 Problem Vaginal cancer C52 Active 831392311 ALLERGIES No Information ENCOUNTERS Encounter Location Date Diagnosis [facility] [place] [address] [facility] [id number] [address] Jan, [facility] [place] [address] [facility] [id number], [place] [address] Oct, Onychomycosis B35.1 ; Onychocryptosis L60.0 and Type 2 diabetes mellitus without complication, without long-term current use of insulin E11.9 [place] [address] [place] [id number] [place] [address] 64267- 8208 Sep, Diverticulitis K57.92 [place] [address] 88997- 1125 Sep, Diverticulitis K57.92 [place] [address] 50584- 0650 Sep, [facility] [address] 9[address]92 -7177 Sep, Diarrhea, unspecified type R19.7 [place] [address] 28550- 3777 Sep, [place] [address] 73802- 3973 Sep, Pain in right hip M25.551 [place] [address] 16866- 1591 Sep, [place] [address] 63789- 9324 Aug, Acute cystitis with hematuria N30.01 [place] [address] 31434- 6802 Aug, Type 2 diabetes mellitus without complication, [...] Angina pectoris I20.9 and Vaginal cancer C52 [facility] [place] [id number] [place] [address] 76092- 8779 Aug, [facility] [place] [address] 25312- 6997 Aug, [facility] [place] [id number] [place] [address] 59508- 0492 Aug, Vaginal candidiasis B37.3 and Vaginal itching L29.8 [facility] [place] [address] 79888- 7874 Aug, Dysuria R30.0 and Acute cystitis with hematuria N30.01 [facility] [place] [address] 59561- 2953 July, [facility] [place] [address] 43402- 3597 July, [facility] [place] [address] 58090- 7251 July, [facility] [place] [id number] [place] [address] 53374- 3254 Jun, [facility] [place] [address] [id number] [place] [address] 56668- 0021 Jun, [facility] [id number] [place] [address] 81968 -3556 Jun, Right anterior knee pain M25.561 [facility] [place] [id number] [place] [address] 96777- 2306 Jun, [facility] [place] [id number] [place] [address] 63602- 6617 Jun, Type 2 diabetes mellitus with diabetic neuropathic arthropathy, 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 [facility] [place] [id number] [place] [address] 21063- 2378 May, Acute non-recurrent maxillary sinusitis J01.00 and Acute suppurative otitis media of left ear without spontaneous rupture of tympanic membrane, recurrence not specified H66.002 [facility] [id number] [place] [address] 36874 -1836 10 May, 2017 Viral upper respiratory tract infection J06.9 [place] [address] 72508- 9801 Apr, [place] [address] 08358- 6030 Apr, Type 2 diabetes mellitus with diabetic [...] index (BMI) of 32.0-32.9 in adult Z68.32 [place] [address] 70301- 6662 09 Apr, 2017 Type 2 diabetes mellitus without complication, without long- term current use of insulin E11.9 [place] [address] [address] [id number] [place] [address] 39441- 0755 02 Apr, 2017 Papule R23.8 and Actinic keratosis L57.0 [facility] [address] 26561 -9232 11 Mar, 2017 Cough R05 ; Encounter for immunization Z23 ; Other viral agents as the cause of diseases classified elsewhere B97.89 and Acute upper respiratory infection, unspecified J06.9 [place] [address] 37420- 1312 14 Jan, 2017 Migraine without status migrainosus, not intractable, unspecified migraine type G43.909 [place] [address] 06364- 5096 Sep, [place] [address] [id number] [place] [address] 56772- 2683 Sep, Type 2 diabetes mellitus without complication, without long- term current use of insulin E11.9 ; Dehydration, mild E86.0 and Dyshidrotic eczema L30.1 [place] [address] [id number] [place] [address] 61964- 5526 Sep, [place] [address] [address] [id number] [place] [address] 84373- 0163 Aug, Migraine without status migrainosus, not intractable, unspecified migraine type G43.[address] 21126- 8520 July, [place] [address] [id number] [place] [address] 41526- 6342 Jun, Medicare annual wellness visit, subsequent Z00.00 ; Hyperlipidemia E78.5 ; CAD (coronary artery disease) I25.10 and Vaginal cancer C52 [place] [id number] [place] [address] 90797- 2671 Jun, Sciatica M54.30 ; Pain in right hip M25.551 ; Dyshidrotic eczema L30.1 ; Candidiasis of breast B37.89 ; Right anterior knee pain M25.561 ; Hyperlipidemia E78.5 and Encounter for immunization Z23 [place] [address] [address] [id number] [place] [address] 48242- 2660 May, Ganglion cyst of joint of finger of left hand M67.442 [place] [address] [id number] [place] [address] 18924- 3502 May, Migraine without status migrainosus, not intractable, unspecified migraine type G43.909 [place] [id number] [place] [address] 07797- 5773 May, [place] [address] [id number] [place] [address] 81123- 6007 09 Apr, 2016 Skin lesion of back L98.9 and Encounter for immunization Z23 [place] [address] [address] [id number] [place] [address] 48777- 5854 Mar, Candidal dermatitis B37.2 ; Seborrheic keratoses L82.1 ; Polyneuropathy G62.9 and Dysuria R30.0 [facility] [id number] [place] [address] [id number] Mar, Dental examination Z01.20 [place] [address] 76149- 3858 Mar, Neuritis M79.2 [place] [address] 64343- 5243 30 Feb, 2016 Drug allergy Z88.9 [place] [address] [address] [id number] [place] [address] 80118- 2549 Feb, Dysuria R30.0 [place] [address] 45485- 4894 Feb, Acute cystitis with hematuria N30.01 [place] [address] 35732- 3271 Feb, Dysuria R30.0 and Acute cystitis with hematuria N30.01 [place] [address] [id number] [place] [address] 20930- 6775 Feb, Angina pectoris I20.9 ; Finger pain, left M79.645 ; 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 ; GERD (gastroesophageal reflux disease) K21.9 ; Pain in right hip M25.551 ; Pain in left hip M25.552 and Encounter for screening mammogram for breast cancer Z12.31 [place] [address] [id number] [place] [address] 35666- 9589 Dec, Right hip pain M25.551 [place] [id number] [place] [address] 50146- 3322 Nov, GERD (gastroesophageal reflux disease) K21.9 ; Vaginal cancer C52 ; Pain in right hip M25.551 and Pain in left hip M25.552 [place] [address] 82598- 1854 Oct, Squamous cell carcinoma C80.[address] 27134- 9111 Oct, Skin lesions L98.9 and Encounter for well woman exam Z01.419 [place] [address] 39810- 0002 Oct, [address] 56233- 9730 Sep, [facility] [address] 14235 -5511 Aug, Atopic dermatitis, unspecified type L20.9 and Tick bite, initial encounter W57.XXXA [facility] [address] 64956 -1138 Aug, [address] 59812- 7312 July, Pre-procedural laboratory examination Z01.812 [place] [address] [id number] [place] [address] 90482- 3525 July, Migraine without status migrainosus, not intractable, unspecified migraine type G43.909 ; Barretts esophagus without dysplasia K22.70 ; Sciatic nerve pain, left M54.32 and Localized swelling, mass and lump, head R22.[address] 74478- 5939 May, [address] 22026- 5011 May, [facility] [address] 64988 -7017 May, Unspecified fall, initial encounter W19.XXXA ; Unspecified place in unspecified non-institutional (private) residence as the place of occurrence of the external cause Y92.009 ; Mid back pain M54.9 ; Rib pain on right side R07.81 ; Buttock pain M79.1 and Post-traumatic headache, unspecified , not intractable G44.309 [place] [address] 77416- 9417 Apr, Hypercholesteremia E78.0 ; Chest discomfort R07.89 ; 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 and History of sciatica Z86.69 [place] [address] 97865- 5768 Mar, Calculus of left kidney N20.0 ; Hyperlipidemia E78.5 ; Degeneration disease of medial meniscus, 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 ; Right knee pain M25.561 ; Sciatica M54.30 ; GERD (gastroesophageal reflux disease) K21.9 and 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 [place] [address] 89139- 2350 Mar, [place] [address] 72132- 3852 Mar, [place] [address] 04315- 9396 Mar, [place] [address] 32626- 4782 Mar, Plantar fasciitis M72.2 [place] [address] 43944- 8844 Mar, Degeneration disease of medial meniscus, 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 ; Right knee pain M25.561 ; Sciatica M54.30 ; GERD ( gastroesophageal reflux disease) K21.9 and 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 [place] [address] 32585- 8124 Feb, [place] [address] 30409- 5681 16 Feb, 2015 Osteopenia M85.80 [facility] [place] [address] 66605- 4031 15 Feb, 2015 Screening for malignant neoplasm of breast Z12.39 and Encounter for screening mammogram for malignant neoplasm of breast Z12.31 [place] [address] 35746- 5108 Feb, Hip pain M25.559 [place] [address] 07421- 9932 Feb, [address] 18835- 9981 Feb, Arthralgia of right hip M25.551 ; Sciatica M54.30 ; GERD ( gastroesophageal reflux disease) K21.9 ; 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 ; CAD ( coronary artery disease) I25.10 and Hyperlipidemia 272.4 [facility] [address] 80576 -3958 Jan, Pharyngitis J02.9 ; Body aches R52 ; Cough R05 and Sinusitis J32.[address] 20716- 9016 Nov, Contusion of foot 924.20 and Plantar fasciitis 728.71 [facility] [address] [id number] Oct, Dental examination V72.2 [place] [address] 93354- 4412 Oct, [place] [address] 81154- 9437 Oct, Coronary artery disease 414.00 [place] [address] 80786- 5627 Oct, Zoster 053.9 [place] [address] 26842- 8432 Sep, Pain in joint, ankle and foot 719.47 ; 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.85 ; Cervicalgia 723.1 ; Pain in joint, shoulder region 719.41 ; Coronary artery disease 414.00 and Need for shingles vaccine V04.89 [facility] [address] [id number] Sep, Dental examination V72.2 [facility] [place] [id number] [place] [address] 94896- 2546 Sep, [facility] [place] [id number] [place] [address] 79807- 8516 Aug, [facility] [id number] [place] [address] [id number] July, Dental examination V72.2 [facility] [place] [id number] [place] [address] 40276- 7356 July, Cough 786.2 [facility] [place] [address] [id number] [place] [address] 39524- 4166 July, Sinusitis 473.9 and Means esophagus 530.85 [facility] [place] [address] [id number] [place] [address] 35726- 4086 Jun, [facility] [place] [id number] [place] [address] 78286- 5106 Jun, [facility] [place] [id number] [place] [address] 99515- 6966 May, [facility] [place] [id number] [place] [address] 62552- 2396 May, [facility] [place] [id number] [place] [address] 29289- 4916 May, [facility] [place] [id number] [place] [address] 35543- 5766 May, [facility] [place] [id number] [place] [address] 716406- 8401 May, [facility] [place] [facility] [address] [id number] [place] [address]- 9301 May, [facility] [place] [facility] [address] [id number] [place] [address]- 8355 May, [facility] [place] [facility] [address] [id number] [place] [address]- 4299 May, [facility] [place] [facility] [address] [id number] [place] [address]- 8260 Apr, [facility] [place] [facility] [address] [id number] [place] [address]- 8200 Apr, [facility] [place] [facility] [address] [id number] [place] [address]- 2090 Apr, [facility] [place] [facility] [address] [id number] [place] [address]- 1208 Mar, [facility] [place] [facility] [address] [id number] [place] [address]- 9334 Mar, [facility] [place] [facility] [address] [id number] [place] [address]- 3997 Mar, [facility] [place] [facility] [address] [id number] [place] [address]- 9611 Mar, [facility] [place] [facility] [address] [id number] [place] [address]- 9552 Feb, [facility] [place] [facility] [address] [id number], [place] [address]- 1121 Feb, [facility] [place] [facility] [address] [id number] [place] [address]- 9243 Feb, [facility] [place] [facility] [address] [id number] [place] [address]- 6844 Feb, [facility] [place] [facility] [address] [id number] [place] [address]- 1742 Feb, [facility] [place] [facility] [address] [id number] [place] [address]- 1220 Feb, [facility] [place] [facility] [address] [id number] [place] [address]- 9553 Feb, [facility] [place] [facility] [address] [id number] [place] [address]- 6041 Jan, [facility] [place] [facility] [address] [id number] [place] [address]- 4347 Jan, [facility] [place] [facility] [address] [id number] [place] [address]- 2328 Jan, [facility] [place] [facility] [address] [id number] [place] [address]- 1393 Jan, [facility] [place] [facility] [address] [id number] [place] [address]- 5785 Dec, [facility] [place] [facility] [address] [id number] [place] [address]- 1356 Dec, [facility] [place] [facility] [address] [id number] [place] [address]- 0783 Dec, [facility] [place] [facility] [address] [id number] [place] [address]- 3874 Dec, [facility] [place] [facility] [address] [id number] [place] [address]- 8986 Dec, [facility] [place] [facility] [address] [id number] [place] [address]- 9729 16 Dec, 2013 [facility] [place] [facility] [address] [id number] [place] [address]- 1240 24 Nov, 2013 [facility] [place] [facility] [address] [id number] [place] [address]- 1806 23 Nov, 2013 [facility] [place] [facility] [address] [id number] [place] [address]- 5072 23 Nov, 2013 [facility] [place] [facility] [address] [id number] [place] [address]- 9374 17 Nov, 2013 [facility] [place] [facility] [address] [id number] [place] [address]- 1383 Nov, [facility] [place] [facility] [address] [id number] [place] [address]- 4626 Nov, [facility] [place] [facility] [address] [id number] [place] [address]- 4885 Nov, [facility] [place] [facility] [address] [id number] [place] [address]- 7091 Oct, [facility] [place] [facility] [address] [id number] [place] [address]- 7042 Oct, [facility] [place] [facility] [address] [id number] [place] [address]- 3232 Oct, [facility] [place] [facility] [address] [id number] [place] [address]- 1950 Oct, [facility] [place] [facility] [address] [id number] [place] [address]- 0475 Oct, [facility] [place] [facility] [address] [id number] [place] [address]- 1277 Oct, [facility] [place] [facility] [address] [id number] [place] [address]- 7607 Oct, [facility] [place] [facility] [address] [id number] [place] [address]- 4234 Oct, [facility] [place] [facility] [address] [id number] [place] [address]- 7093 Oct, [facility] [place] [facility] [address] [id number] [place] [address]- 7367 Sep, [facility] [place] [facility] [address] [id number] [place] [address]- 1452 Sep, [facility] [place] [facility] [address] [id number] [place] [address]- 0851 Sep, [facility] [place] [facility] [address] [id number] [place] [address]- 8626 Sep, [facility] [place] [facility] [address] [id number] [place] [address]- 2891 Sep, [facility] [place] [facility] [address] [id number] [place] [address]- 2704 Sep, [facility] [place] [facility] [address] [id number] [place] [address]- 5404 Sep, [facility] [place] [facility] [address] [id number] [place] [address]- 1667 Sep, [facility] [place] [facility] [address] [id number] [place] [address]- 1445 Sep, [facility] [place] [facility] [address] [id number] [place] [address]- 5733 Aug, [facility] [place] [facility] [address] [id number] [place] [address]- 6513 Aug, [facility] [place] [facility] [address] [id number] [place] [address]- 9967 Jun, [facility] [place] [facility] [address] [id number] [place] [address]- 4155 Jun, [facility] [place] [facility] [address] [id number] [place] [address]- 4321 May, [facility] [place] [facility] [address] [id number] [place] [address]- 8184 May, [facility] [place] [facility] [address] [id number] [place] [address]- 5162 Apr, [facility] [place] [facility] [address] [id number] [place] 1163 Apr, [facility] [place] [facility] [address] [id number] [place] [address]- 1425 Apr, [facility] [place] [facility] [address] [id number] [place] [address]- 0306 Apr, [facility] [place] [facility] [address] [id number] [place] [address]- 2546 Feb, [facility] [address] [id number] [place] [address]- 2566 Feb, [facility] [place] [facility] [address] [id number] [place] [address]- 2546 Jan, [facility] [place] [facility] [address] [id number] [place] [address]- 2546 Jan, [facility] [place] [facility] [address] [id number] [place] [address]- 2546 Nov, [facility] [place] [facility] [address] [id number] [place] [address]- 2546 Sep, [facility] [place] [facility] [address] [id number] [place] [address]- 2546 Sep, [facility] [place] [facility] [address] [id number] [place] [address]- 1336 Aug, [facility] [place] [facility] [address] [id number] [place] [address]- 5528 Aug, [facility] [place] [facility] [address] [id number] [place] [address]- 2546 Aug, [facility] [place] [facility] [address] [id number] [place] [address] July, [facility] [place] [facility] [address] [id number] [place] [address] July, [facility] [place] [facility] [address] [id number] [place] [address] July, [facility] [place] [facility] [address] [id number] [place] [address] May, [facility] [place] [facility] [address] [id number] [place] [address] May, [facility] [place] [facility] [address] [id number] [place] [address] Jan, [facility] [place] [facility] [address] [id number] [place] [address] Jan, [facility] [place] [facility] [address] [id number] [place] [address] Jan, [facility] [place] [facility] [address] [id number] [place] [address] Jan, [facility] [place] [facility] [address] [id number] [place] [address] Jan, [facility] [place] [facility] [address] [id number] [place] [address] Jan, [facility] [place] [facility] [address] [id number] [place] [address] Jan, [facility] [place] [facility] [address] [id number] [place] [address] Jan, [facility] [place] [facility] [address] [id number] [place] [address] Dec, [facility] [place] [facility] [address] [id number] [place] [address] Dec, [facility] [place] [facility] [address] [id number] [place] [address] Aug, [facility] [place] [facility] [address] [id number], [place] [address] July, [facility] [place] [facility] [address] [id number], [place] [address] Jun, [facility] [place] [facility] [address] [id number] [place] [address] May, [facility] [place] [facility] [address] [id number], [place] [address] May, [facility] [place] [facility] [address] [id number] [place] [address] May, [facility] [place] [facility] [address] [facility] [id number] [place] [address] Jun, IMMUNIZATIONS No Known Immunizations SOCIAL HISTORY Never Assessed REASON FOR VISIT med order PLAN OF CARE VITAL SIGNS MEDICATIONS Medication Instructions Dosage Frequency Start Date End Date Duration Status Amoxicillin 500 mg Orally 2 times a day 1 capsule 12h Aug,Aug 07 days Active RESULTS No Results PROCEDURES No [...]
--- OUTSIDE RECORDS SUMMARY | 2018-02-18 08:26 | XMS REPORT ---
Author Author JANES PECK Organization [facility] Address [address] [place] [address] Care Team Providers Care Bowling Or Skating Front Desk Clerk Name Role Phone CISCO JANES Unavailable PROBLEMS Type Condition ICD9-CM Code OQH21-MC Code Onset Dates Condition Status SNOMED Code Problem Angina pectoris I20.9 Active 264779005 Problem Dyshidrotic eczema L30.1 Active 023991425 Problem Polyneuropathy G62.9 Active 12750320 Problem Diverticulitis K57.92 Active 933780090 Problem Other obesity due to excess calories E66.09 Active 812200387 Problem Body mass index (BMI) of 30.0-30.9 in adult Z68.30 Active 616499447 Problem Type 2 diabetes mellitus with diabetic neuropathic arthropathy, 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 Active 530279294 Problem Anxiety F41.9 Active 44636889 Problem Type 2 diabetes mellitus without complication, without long-term current use of insulin E11.9 Active 996040329 Problem GERD (gastroesophageal reflux disease) K21.9 Active 882586529 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 011459823 Problem CAD (coronary artery disease) I25.10 Active 56208405 Problem Trochanteric bursitis of right hip M70.61 Active 278942164661611 Problem Syndrome X, 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 Active 283664846 Problem Seborrheic keratoses L82.1 Active 282726387 Problem Hyperlipidemia E78.5 Active 58133636 Problem Sciatica of right side M54.31 Active 91901853 Problem Vaginal cancer C52 Active 374806684 ALLERGIES No Information ENCOUNTERS Encounter Location Date Diagnosis [facility] [address] [facility] [id number] [address] Jan, [facility] [address] [facility] [id number] [address] Dec, [place] [id number] [place] [address] 35646- 2779 Oct, Onychocryptosis L60.0 and Onychomycosis B35.1 [facility] [id number] [place] [address] 93609- 6623 Oct, Onychomycosis B35.1 ; Onychocryptosis L60.0 and Type 2 diabetes mellitus without complication, without long-term current use of insulin E11.9 [place] [id number] [place] [address] 59162- 7854 Sep, Diverticulitis K57.92 [place] [id number] [place] [address] 74985- 7567 Sep, Diverticulitis K57.92 [place] [id number] [place] [address] 19938- 1109 Sep, [facility] [id number] [place] [address] 17361 -8041 Sep, Diarrhea, unspecified type R19.7 [place] [id number] [place] [address] 36350- 0104 Sep, [place] [id number] [place] [address] 79729- 6728 Sep, Pain in right hip M25.551 [place] [id number] [place] [address] 66967- 2360 Sep, [place] [id number] [place] [address] 66968- 3844 Aug, Acute cystitis with hematuria N30.01 [place] [id number] [place] [address] 05059- 1244 Aug, Type 2 diabetes mellitus without complication, [...] Angina pectoris I20.9 and Vaginal cancer C52 [place] [address] 56166- 1782 Aug, [facility] [address] 19196- 5459 Aug, [place] [address] 64052- 8790 Aug, Vaginal candidiasis B37.3 and Vaginal itching L29.8 [place] [address] 13566- 0151 Aug, Dysuria R30.0 and Acute cystitis with hematuria N30.01 [place] [id number] [place] [address] 44715- 5555 July, [place] [address] 00739- 3659 July, [facility] [id number] [place] [address] 92875- 7910 July, [place] [id number] [place] [address] 22757- 6006 Jun, [facility] [id number] [place] [address] 66862- 1425 Jun, [facility] [id number] [place] [address] 26120 -4401 Jun, Right anterior knee pain M25.561 [facility] [id number] [place] [address] 20582- 7039 Jun, [facility] [address] 85772- 6483 Jun, Type 2 diabetes mellitus with diabetic neuropathic arthropathy, 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 [place] [id number] [place] [address] 85295- 9858 May, Acute non-recurrent maxillary sinusitis J01.00 and Acute suppurative otitis media of left ear without spontaneous rupture of tympanic membrane, recurrence not specified H66.002 [facility] [place] [id number] [place] [address] 63049 -4777 May, Viral upper respiratory tract infection J06.9 [place] [id number] [place] [address] 91255- 0263 Apr, [place] [address] 66528- 4104 Apr, Type 2 diabetes mellitus with diabetic [...] index (BMI) of 32.0-32.9 in adult Z68.32 [place] [id number] [place] [address] 25982- 7378 09 Apr, 2017 Type 2 diabetes mellitus without complication, without long- term current use of insulin E11.9 [place] [id number] [place] [address] 44320- 6029 02 Apr, 2017 Papule R23.8 and Actinic keratosis L57.0 [facility] [place] [id number] [place] [address] 54382 -0595 Mar, Cough R05 ; Encounter for immunization Z23 ; Other viral agents as the cause of diseases classified elsewhere B97.89 and Acute upper respiratory infection, unspecified J06.9 [place] [id number] [place] [address] 87788- 8586 14 Jan, 2017 Migraine without status migrainosus, not intractable, unspecified migraine type G43.909 [place] [id number] [place] [address] 96774- 7675 Sep, [place] [address] 99615- 4637 Sep, Type 2 diabetes mellitus without complication, without long- term current use of insulin E11.9 ; Dehydration, mild E86.0 and Dyshidrotic eczema L30.[address] 92116- 8483 Sep, [address] 65521- 8649 Aug, Migraine without status migrainosus, not intractable, unspecified migraine type G43.909 [place] [id number] [place] [address] 66992- 1339 July, [address] 73534- 9412 Jun, Medicare annual wellness visit, subsequent Z00.00 ; Hyperlipidemia E78.5 ; CAD (coronary artery disease) I25.10 and Vaginal cancer C52 [address] 44196- 5416 Jun, Sciatica M54.30 ; Pain in right hip M25.551 ; Dyshidrotic eczema L30.1 ; Candidiasis of breast B37.89 ; Right anterior knee pain M25.561 ; Hyperlipidemia E78.5 and Encounter for immunization Z23 [place] [id number] [place] [address] 72601- 1344 16 May, 2016 Ganglion cyst of joint of finger of left hand M67.[address] 84302- 2857 May, Migraine without status migrainosus, not intractable, unspecified migraine type G43.909 [place] [id number] [place] [address] 87948- 4804 May, [place] [address] 69772- 2053 09 Apr, 2016 Skin lesion of back L98.9 and Encounter for immunization Z23 [place] [id number] [place] [address] 79055- 2038 Mar, Candidal dermatitis B37.2 ; Seborrheic keratoses L82.1 ; Polyneuropathy G62.9 and Dysuria R30.0 [facility] [id number] [place] [address] [id number] Mar, Dental examination Z01.[address] 25298- 7537 Mar, Neuritis M79.2 [place] [address] 56973- 5155 Feb, Drug allergy Z88.9 [place] [address] 44293- 7876 Feb, Dysuria R30.[address] 43566- 1250 Feb, Acute cystitis with hematuria N30.01 [place] [address] 49648- 1891 Feb, Dysuria R30.0 and Acute cystitis with hematuria N30.01 [place] [address] 83182- 5930 Feb, Angina pectoris I20.9 ; Finger pain, left M79.645 ; 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 ; GERD (gastroesophageal reflux disease) K21.9 ; Pain in right hip M25.551 ; Pain in left hip M25.552 and Encounter for screening mammogram for breast cancer Z12.31 [place] [address] 50102- 5953 26 Dec, 2015 Right hip pain M25.551 [place] [address] 75117- 3518 13 Nov, 2015 GERD (gastroesophageal reflux disease) K21.9 ; Vaginal cancer C52 ; Pain in right hip M25.551 and Pain in left hip M25.552 [place] [address] 65608- 9923 19 Oct, 2015 Squamous cell carcinoma C80.[address] 94671- 4267 11 Oct, 2015 Skin lesions L98.9 and Encounter for well woman exam Z01.[address] 09748- 3452 Oct, [place] [address] 23751- 2238 Sep, [facility] [address] 26945 -6671 Aug, Atopic dermatitis, unspecified type L20.9 and Tick bite, initial encounter W57.XXXA [facility] [address] 00963 -6778 Aug, [place] [address] 94103- 1399 July, Pre-procedural laboratory examination Z01.812 [place] [address] 36660- 0011 July, Migraine without status migrainosus, not intractable, unspecified migraine type G43.909 ; Barretts esophagus without dysplasia K22.70 ; Sciatic nerve pain, left M54.32 and Localized swelling, mass and lump, head R22.[address] 89098- 4926 May, [facility] [id number] [place] [address] 61740- 8642 May, [facility] [id number] [place] [address] 39963 -0403 May, Unspecified fall, initial encounter W19.XXXA ; Unspecified place in unspecified non-institutional (private) residence as the place of occurrence of the external cause Y92.009 ; Mid back pain M54.9 ; Rib pain on right side R07.81 ; Buttock pain M79.1 and Post-traumatic headache, unspecified , not intractable G44.309 [place] [address] 40993- 3973 10 Apr, 2015 Hypercholesteremia E78.0 ; Chest discomfort R07.89 ; 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 and History of sciatica Z86.69 [place] [address] 60305- 0029 Mar, Hyperlipidemia E78.5 ; Calculus of left kidney N20.0 ; Degeneration disease of medial meniscus, 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 ; Right knee pain M25.561 ; Sciatica M54.30 ; GERD (gastroesophageal reflux disease) K21.9 and 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 [place] [id number] [place] [address] 58542- 3543 Mar, [place] [address] [address] [id number] [place] [address] 32665- 8603 Mar, [place] [id number] [place] [address] 64339- 7779 Mar, [place] [address] 99943- 7755 Mar, Plantar fasciitis M72.2 [place] [address] [id number] [place] [address] 30638- 3077 Mar, Degeneration disease of medial meniscus, 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 ; Right knee pain M25.561 ; Sciatica M54.30 ; GERD ( gastroesophageal reflux disease) K21.9 and 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 [place] [address] 92410- 0141 Feb, [place] [address] 93799- 2618 Feb, Osteopenia M85.[address] 52055- 8516 Feb, Screening for malignant neoplasm of breast Z12.39 and Encounter for screening mammogram for malignant neoplasm of breast Z12.[address] 14804- 0002 Feb, Hip pain M25.[address] 53777- 5218 Feb, [address] 79206- 8378 Feb, Arthralgia of right hip M25.551 ; Sciatica M54.30 ; GERD ( gastroesophageal reflux disease) K21.9 ; 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 ; CAD ( coronary artery disease) I25.10 and Hyperlipidemia 272.4 [facility] [address] 93259 -7282 Jan, Pharyngitis J02.9 ; Body aches R52 ; Cough R05 and Sinusitis J32.[address] 21653- 0687 Nov, Contusion of foot 924.20 and Plantar fasciitis 728.71 [facility] [address] [id number] Oct, Dental examination V72.[address] 69991- 4508 Oct, [facility] [address] [place] [address]- 2526 Oct, Coronary artery disease 414.00 [facility] [address] [place] [id number] [place] [address] 86052- 0236 Oct, Zoster 053.9 [facility] [address] [place] [id number] [place] [address] 95286- 4866 Sep, Pain in joint, ankle and foot 719.47 ; 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.85 ; Cervicalgia 723.1 ; Pain in joint, shoulder region 719.41 ; Coronary artery disease 414.00 and Need for shingles vaccine V04.89 [facility] [address] [place] [id number] [place] [address] [id number] Sep, Dental examination V72.2 [facility] [address] [place] [id number] [place] [address] 39039 2546 Sep, [facility] [address] [id number] [place] [address] 34468- 4656 Aug, [facility] [id number] [place] [address] [id number] July, Dental examination V72.2 [facility] [address] [id number] [place] [address] 54835- 4396 July, Cough 786.2 [facility] [address] [address] [id number] [place] [address] 51266- 6530 July, Sinusitis 473.9 and Means esophagus 530.85 [facility] [address] [id number] [place] [address] 41106- 8786 Jun, [facility] [id number] [place] [address] 44059- 3236 Jun, [facility] [id number] [place] [address] 55335- 3846 May, [facility] [address] [address] 2546 May, [facility] [address] [place] [id number] [place] [address]- 4277 May, [facility] [place] [facility] [address] [id number] [place] [address]- 2248 May, [facility] [place] [facility] [address] [id number] [place] [address]- 8924 May, [facility] [place] [facility] [address] [id number] [place] [address]- 3124 May, [facility] [place] [facility] [address] [id number] [place] [address]- 4131 May, [facility] [place] [facility] [address] [id number] [place] [address]- 5443 May, [facility] [place] [facility] [address] [id number] [place] [address]- 6309 Apr, [facility] [place] [facility] [address] [id number] [place] [address]- 0839 Apr, [facility] [place] [facility] [address] [id number] [place] [address]- 7217 Apr, [facility] [place] [facility] [address] [id number] [place] [address]- 9909 Mar, [facility] [place] [facility] [address] [id number] [place] [address]- 0563 Mar, [facility] [place] [facility] [address] [id number] [place] [address]- 3165 Mar, [facility] [place] [facility] [address] [id number] [place] [address]- 9793 Mar, [facility] [place] [facility] [address] [id number] [place] [address]- 9399 Feb, [facility] [place] [facility] [address] [id number] [place] [address]- 1816 Feb, [facility] [place] [facility] [address] [id number] [place] [address]- 1897 Feb, [facility] [place] [facility] [address] [id number] [place] [address]- 6259 Feb, [facility] [place] [facility] [address] [id number] [place] [address]- 0278 Feb, [facility] [place] [facility] [address] [id number] [place] 6305 Feb, [facility] [place] [facility] [address] [id number] [place] [address]- 9821 Feb, [facility] [place] [facility] [address] [id number] [place] [address]- 6764 Jan, [facility] [place] [facility] [address] [id number] [place] [address]- 3676 Jan, [facility] [place] [facility] [address] [id number] [place] [address]- 3352 Jan, [facility] [place] [facility] [address] [id number] [place] [address]- 9005 Jan, [facility] [place] [facility] [address] [id number] [place] [address]- 6773 Dec, [facility] [place] [facility] [address] [id number] [place] [address]- 8097 Dec, [facility] [place] [facility] [address] [id number] [place] [address]- 3394 Dec, [facility] [place] [facility] [address] [id number] [address]- 4564 Dec, [facility] [place] [facility] [address] [id number] [place] [address]- 4851 Dec, [facility] [place] [facility] [address] [id number] [place] 0505 Dec, [facility] [place] [facility] [address] [id number] [place]- 2083 24 Nov, 2013 [facility] [place] [facility] [address] [id number] [place] [address]- 0782 Nov, 2013 [facility] [place] [facility] [address] [id number] [place] [address]- 4390 23 Nov, 2013 [facility] [place] [facility] [address] [id number] [place] [address]- 3012 Nov, [facility] [place] [facility] [address] [id number] [place] [address]- 0478 Nov, [facility] [place] [facility] [address] [id number] [place] [address]- 8235 Nov, [facility] [place] [facility] [address] [id number] [place] [address]- 3830 Nov, [facility] [place] [facility] [address] [id number] [place] [address]- 2083 Oct, [facility] [place] [facility] [address] [id number] [place] [address]- 2095 Oct, [facility] [place] [facility] [address] [id number] [place] [address]- 7338 Oct, [facility] [place] [facility] [address] [id number] [place] [address]- 1333 Oct, [facility] [place] [facility] [address] [id number] [place] [address]- 8125 Oct, [facility] [place] [facility] [address] [id number] [place] [address]- 9118 Oct, [facility] [place] [facility] [address] [id number] [place] [address]- 9152 Oct, [facility] [place] [facility] [address] [id number] [place] [address]- 9873 Oct, [facility] [place] [facility] [address] [id number] [place] [address]- 1218 Oct, [facility] [place] [facility] [address] [id number] [place] [address]- 3952 Sep, [facility] [place] [facility] [address] [id number] [place] [address]- 2333 14 Sep, 2013 [facility] [place] [facility] [address] [id number] [place] [address]- 4589 Sep, 2013 [facility] [place] [facility] [address] [id number] [place] [address]- 5837 Sep, 2013 [facility] [place] [facility] [address] [id number] [place] [address]- 4982 Sep, 2013 [facility] [place] [facility] [address] [id number] [place] [address]- 5050 Sep, 2013 [facility] [place] [facility] [address] [id number] [place] [address]- 3419 Sep, 2013 [facility] [place] [facility] [address] [id number] [place] [address]- 3662 Sep, [facility] [place] [facility] [address] [id number] [place] [address]- 7551 Sep, [facility] [place] [facility] [address] [id number] [place] [address]- 6009 Aug, [facility] [place] [facility] [address] [id number] [place] [address]- 9668 Aug, [facility] [place] [facility] [address] [id number] [place] [address]- 9000 Jun, [facility] [place] [facility] [address] [id number] [place] [address]- 6513 Jun, [facility] [place] [facility] [address] [id number] [place] [address]- 4050 May, [facility] [place] [facility] [address] [id number] [place] [address]- 6899 May, [facility] [place] [facility] [address] [id number] [place] [address]- 4454 Apr, [facility] [place] [facility] [address] [id number] [place] [address]- 7679 Apr, [facility] [address] [id number] [place] [address]- 5283 Apr, [facility] [place] [facility] [address] [id number] [place] [address]- 2936 Apr, [facility] [address] [id number] [place] [address]- 7294 Feb, [facility] [place] [facility] [address] [id number] [place] [address]- 5536 Feb, [facility] [place] [facility] [address] [id number] [place] [address]- 1374 Jan, [facility] [place] [facility] [address] [id number] [place] 7041 Jan, [facility] [address] [id number] [place] [address]- 9152 Nov, [facility] [place] [facility] [address] [id number] [place] [address]- 2236 Sep, [facility] [place] [facility] [address] [id number] [place] [address] Sep, [facility] [place] [facility] [address] [id number] [place] [address] Aug, [facility] [place] [facility] [address] [id number] [place] [address] Aug, [facility] [place] [facility] [address] [id number] [place] [address] Aug, [facility] [place] [facility] [address] [id number] [place] [address] July, [facility] [place] [facility] [address] [id number] [place] [address] July, [facility] [place] [facility] [address] [id number] [place] [address] July, [facility] [place] [facility] [address] [id number] [place] [address] May, [facility] [address] [id number] [place] [address] May, [facility] [place] [facility] [address] [id number] [place] [address] Jan, [facility] [address] [id number] [place] [address] Jan, [facility] [place] [facility] [address] [id number] [place] [address] Jan, [facility] [address] [id number] [place] [address] Jan, [facility] [place] [facility] [address] [id number] [place] [address] Jan, [facility] [address] [id number] [place] [address] Jan, [facility] [address] [id number] [place] [address] Jan, [facility] [place] [facility] [address] [id number] [place] [address] Jan, [facility] [address] [id number] [place] [address] Dec, [facility] [place] [facility] [address] [id number] [place] [address] Dec, [facility] [place] [facility] [address] [id number] [place] [address] Aug, [facility] [place] [facility] [address] [id number] [place] [address] July, [facility] [place] [facility] [address] [id number] [place] [address] Jun, [facility] [place] [facility] [address] [id number] [place] [address] May, [facility] [address] [facility] [id number] [place] [address] May, [facility] [address] [facility] [id number] [place] [address] May, [facility] [address] [facility] [id number] [place] [address] 13 Jun, 2008 IMMUNIZATIONS No Known Immunizations SOCIAL HISTORY Never Assessed REASON FOR VISIT Medication Refill PLAN OF CARE VITAL SIGNS MEDICATIONS Medication Instructions Dosage Frequency Start Date End Date Duration Status Macrobid 100 mg Orally every 12 hrs 1 capsule with food 12h Aug, 7 day(s) Active RESULTS No Results PROCEDURES [...]
[2018-02-18 08:27] VITALS: BP 117/72
--- OUTSIDE RECORDS SUMMARY | 2018-02-18 08:27 | XMS REPORT ---
Author Author JANES PECK Organization [facility] Address [address] [place] [address] Care Team Providers Care Hospice Executive Director Name Role Phone JANES PECK Unavailable PROBLEMS Type Condition ICD9-CM Code [id number] Code Onset Dates Condition Status SNOMED Code Problem Angina pectoris I20.9 Active 697043566 Problem Dyshidrotic eczema L30.1 Active 423204012 Problem Polyneuropathy G62.9 Active 99650540 Problem Diverticulitis K57.92 Active 980495452 Problem Other obesity due to excess calories E66.09 Active 715619706 Problem Body mass index (BMI) of 30.0-30.9 in adult Z68.30 Active 402531965 Problem Type 2 diabetes mellitus with diabetic neuropathic arthropathy, 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 Active 393547988 Problem Anxiety F41.9 Active 64156088 Problem Type 2 diabetes mellitus without complication, without long-term current use of insulin E11.9 Active 407711149 Problem GERD (gastroesophageal reflux disease) K21.9 Active 424909638 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 [id number] [address] Jan, [facility] [address] [facility] [id number] [address] Oct, Onychomycosis B35.1 ; Onychocryptosis L60.0 and Type 2 diabetes mellitus without complication, without long-term current use of insulin E11.9 [place] [id number] [place] [address] 38622- 8121 Sep, Diverticulitis K57.92 [place] [address] 56101- 0953 Sep, Diverticulitis K57.92 [place] [address] 98173- 8679 Sep, [facility] [address] [address]53 Sep, Diarrhea, unspecified type R19.7 [place] [address] 25144- 9478 Sep, [place] [address] 85411- 7334 Sep, Pain in right hip M25.551 [place] [address] 10418- 0928 Sep, [place] [address] 24241- 8942 Aug, Acute cystitis with hematuria N30.01 [place] [address] 22267- 7551 Aug, Type 2 diabetes mellitus without complication, [...] Angina pectoris I20.9 and Vaginal cancer C52 [facility] [id number] [place] [address] 78962- 3219 Aug, [facility] [address] 71696- 5128 Aug, [facility] [id number] [place] [address] 12162- 4936 Aug, Vaginal candidiasis B37.3 and Vaginal itching L29.8 [facility] [address] 72877- 6634 Aug, Dysuria R30.0 and Acute cystitis with hematuria N30.01 [facility] [address] 55933- 4666 July, [facility] [address] 41854- 7772 July, [facility] [address] 11993- 8136 July, [facility] [id number] [place] [address] 37805- 2667 Jun, [facility] [id number] [place] [address] 44603- 7239 Jun, [facility] [id number] [place] [address] 28588 -1152 Jun, Right anterior knee pain M25.561 [facility] [id number] [place] [address] 80750- 1468 Jun, [facility] [id number] [place] [address] 72001- 7420 Jun, Type 2 diabetes mellitus with diabetic neuropathic arthropathy, 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 [facility] [id number] [place] [address] 79368- 9588 May, Acute non-recurrent maxillary sinusitis J01.00 and Acute suppurative otitis media of left ear without spontaneous rupture of tympanic membrane, recurrence not specified H66.002 [facility] [id number] [place] [address] 03112 -6164 10 May, 2017 Viral upper respiratory tract infection J06.9 [place] [address] 31030- 1329 Apr, [place] [address] 38092- 1144 Apr, Type 2 diabetes mellitus with diabetic [...] index (BMI) of 32.0-32.9 in adult Z68.32 [place] [address] 56643- 9222 09 Apr, 2017 Type 2 diabetes mellitus without complication, without long- term current use of insulin E11.9 [place] [id number] [place] [address] 52792- 5271 02 Apr, 2017 Papule R23.8 and Actinic keratosis L57.0 [facility] [address] 86569 -0885 11 Mar, 2017 Cough R05 ; Encounter for immunization Z23 ; Other viral agents as the cause of diseases classified elsewhere B97.89 and Acute upper respiratory infection, unspecified J06.9 [place] [address] 92712- 8176 14 Jan, 2017 Migraine without status migrainosus, not intractable, unspecified migraine type G43.909 [place] [address] 49569- 4455 Sep, [place] [id number] [place] [address] 70092- 2377 Sep, Type 2 diabetes mellitus without complication, without long- term current use of insulin E11.9 ; Dehydration, mild E86.0 and Dyshidrotic eczema L30.1 [place] [id number] [place] [address] 95489- 3409 Sep, [place] [id number] [place] [address] 89078- 0054 Aug, Migraine without status migrainosus, not intractable, unspecified migraine type G43.[address] 83430- 7744 July, [place] [id number] [place] [address] 26240- 4893 Jun, Medicare annual wellness visit, subsequent Z00.00 ; Hyperlipidemia E78.5 ; CAD (coronary artery disease) I25.10 and Vaginal cancer C52 [place] [id number] [place] [address] 06169- 3165 Jun, Sciatica M54.30 ; Pain in right hip M25.551 ; Dyshidrotic eczema L30.1 ; Candidiasis of breast B37.89 ; Right anterior knee pain M25.561 ; Hyperlipidemia E78.5 and Encounter for immunization Z23 [place] [id number] [place] [address] 97894- 5762 May, Ganglion cyst of joint of finger of left hand M67.442 [place] [id number] [place] [address] 35979- 0748 May, Migraine without status migrainosus, not intractable, unspecified migraine type G43.909 [place] [id number] [place] [address] 04677- 7470 May, [place] [id number] [place] [address] 17476- 5609 09 Apr, 2016 Skin lesion of back L98.9 and Encounter for immunization Z23 [place] [id number] [place] [address] 08496- 8657 Mar, Candidal dermatitis B37.2 ; Seborrheic keratoses L82.1 ; Polyneuropathy G62.9 and Dysuria R30.0 [facility] [id number] [place] [address] [id number] Mar, Dental examination Z01.20 [place] [address] 00574- 7003 Mar, Neuritis M79.2 [place] [address] 12136- 1291 30 Feb, 2016 Drug allergy Z88.9 [place] [id number] [place] [address] 28863- 1410 Feb, Dysuria R30.0 [place] [address] 99431- 5505 Feb, Acute cystitis with hematuria N30.01 [place] [address] 37257- 2758 Feb, Dysuria R30.0 and Acute cystitis with hematuria N30.01 [place] [id number] [place] [address] 85957- 3865 Feb, Angina pectoris I20.9 ; Finger pain, left M79.645 ; 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 ; GERD (gastroesophageal reflux disease) K21.9 ; Pain in right hip M25.551 ; Pain in left hip M25.552 and Encounter for screening mammogram for breast cancer Z12.31 [place] [id number] [place] [address] 59085- 9517 Dec, Right hip pain M25.551 [place] [id number] [place] [address] 41540- 8388 Nov, GERD (gastroesophageal reflux disease) K21.9 ; Vaginal cancer C52 ; Pain in right hip M25.551 and Pain in left hip M25.552 [place] [address] 76009- 6052 Oct, Squamous cell carcinoma C80.[address] 58175- 1761 Oct, Skin lesions L98.9 and Encounter for well woman exam Z01.419 [place] [address] 86266- 7349 Oct, [address] 13342- 9724 Sep, [facility] [address] 29279 -6072 Aug, Atopic dermatitis, unspecified type L20.9 and Tick bite, initial encounter W57.XXXA [facility] [address] 37931 -8690 Aug, [address] 47245- 8135 July, Pre-procedural laboratory examination Z01.812 [place] [id number] [place] [address] 65593- 1689 July, Migraine without status migrainosus, not intractable, unspecified migraine type G43.909 ; Barretts esophagus without dysplasia K22.70 ; Sciatic nerve pain, left M54.32 and Localized swelling, mass and lump, head R22.[address] 38102- 6777 May, [address] 16998- 1254 May, [facility] [address] 67571 -4686 May, Unspecified fall, initial encounter W19.XXXA ; Unspecified place in unspecified non-institutional (private) residence as the place of occurrence of the external cause Y92.009 ; Mid back pain M54.9 ; Rib pain on right side R07.81 ; Buttock pain M79.1 and Post-traumatic headache, unspecified , not intractable G44.309 [place] [address] 97251- 4630 Apr, Hypercholesteremia E78.0 ; Chest discomfort R07.89 ; 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 and History of sciatica Z86.69 [place] [address] 94002- 9152 Mar, Calculus of left kidney N20.0 ; Hyperlipidemia E78.5 ; Degeneration disease of medial meniscus, 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 ; Right knee pain M25.561 ; Sciatica M54.30 ; GERD (gastroesophageal reflux disease) K21.9 and 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 [place] [address] 52298- 9359 Mar, [place] [address] 38266- 1205 Mar, [place] [address] 54540- 6427 Mar, [place] [address] 17638- 5718 Mar, Plantar fasciitis M72.2 [place] [address] 71317- 6933 Mar, Degeneration disease of medial meniscus, 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 ; Right knee pain M25.561 ; Sciatica M54.30 ; GERD ( gastroesophageal reflux disease) K21.9 and 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 [place] [address] 62110- 7770 Feb, [place] [address] 63244- 9396 16 Feb, 2015 Osteopenia M85.80 [facility] [address] 11043- 5755 15 Feb, 2015 Screening for malignant neoplasm of breast Z12.39 and Encounter for screening mammogram for malignant neoplasm of breast Z12.31 [place] [address] 66278- 2429 Feb, Hip pain M25.559 [place] [address] 43688- 7213 Feb, [address] 40704- 6107 Feb, Arthralgia of right hip M25.551 ; Sciatica M54.30 ; GERD ( gastroesophageal reflux disease) K21.9 ; 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 ; CAD ( coronary artery disease) I25.10 and Hyperlipidemia 272.4 [facility] [address] 00030 -8052 Jan, Pharyngitis J02.9 ; Body aches R52 ; Cough R05 and Sinusitis J32.[address] 04201- 0881 Nov, Contusion of foot 924.20 and Plantar fasciitis 728.71 [facility] [address] [id number] Oct, Dental examination V72.2 [place] [address] 12380- 2957 Oct, [place] [address] 96328- 5553 Oct, Coronary artery disease 414.00 [place] [address] 51631- 9907 Oct, Zoster 053.9 [place] [address] 81106- 5648 Sep, Pain in joint, ankle and foot 719.47 ; 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.85 ; Cervicalgia 723.1 ; Pain in joint, shoulder region 719.41 ; Coronary artery disease 414.00 and Need for shingles vaccine V04.89 [facility] [address] [id number] Sep, Dental examination V72.2 [facility] [id number] [place] [address] 45921- 2546 Sep, [facility] [id number] [place] [address] 08419- 2016 Aug, [facility] [id number] [place] [address] [id number] July, Dental examination V72.2 [facility] [id number] [place] [address] 25727- 2646 July, Cough 786.2 [facility] [id number] [place] [address] 28364- 7466 July, Sinusitis 473.9 and Means esophagus 530.85 [facility] [id number] [place] [address] 38964- 7626 Jun, [facility] [id number] [place] [address] 08884- 9466 Jun, [facility] [id number] [place] [address] 70353- 1916 May, [facility] [id number] [place] [address] 69278- 4566 May, [facility] [id number] [place] [address] 49395- 6616 May, [facility] [id number] [place] [address] 41669- 1166 May, [facility] [id number] [place] [address] 937978- 3591 May, [facility] [place] [facility] [address] [id number] [place] [address]- 3556 May, [facility] [place] [facility] [address] [id number] [place] [address]- 4077 May, [facility] [place] [facility] [address] [id number] [place] [address]- 4801 May, [facility] [place] [facility] [address] [id number] [place] [address]- 8501 Apr, [facility] [place] [facility] [address] [id number] [place] [address]- 5856 Apr, [facility] [place] [facility] [address] [id number] [place] [address]- 0580 Apr, [facility] [place] [facility] [address] [id number] [place] [address]- 6337 Mar, [facility] [place] [facility] [address] [id number] [place] [address]- 0068 Mar, [facility] [place] [facility] [address] [id number] [place] [address]- 8363 Mar, [facility] [place] [facility] [address] [id number] [place] [address]- 9363 Mar, [facility] [place] [facility] [address] [id number] [place] [address]- 1022 Feb, [facility] [place] [facility] [address] [id number] [address]- 8206 Feb, [facility] [place] [facility] [address] [id number] [place] [address]- 6571 Feb, [facility] [place] [facility] [address] [id number] [place] [address]- 3935 Feb, [facility] [place] [facility] [address] [id number] [place] [address]- 3993 Feb, [facility] [place] [facility] [address] [id number] [place] [address]- 8568 Feb, [facility] [place] [facility] [address] [id number] [place] [address]- 1161 Feb, [facility] [place] [facility] [address] [id number] [place] [address]- 6406 Jan, [facility] [place] [facility] [address] [id number] [place] [address]- 7536 Jan, [facility] [place] [facility] [address] [id number] [place] [address]- 4221 Jan, [facility] [place] [facility] [address] [id number] [place] [address]- 6431 Jan, [facility] [place] [facility] [address] [id number] [place] [address]- 4941 Dec, [facility] [place] [facility] [address] [id number] [place] [address]- 2043 Dec, [facility] [place] [facility] [address] [id number] [place] [address]- 7882 Dec, [facility] [place] [facility] [address] [id number] [place] [address]- 9588 Dec, [facility] [place] [facility] [address] [id number] [place] [address]- 4899 Dec, [facility] [place] [facility] [address] [id number] [place] [address]- 5886 16 Dec, 2013 [facility] [place] [facility] [address] [id number] [place] [address]- 8218 24 Nov, 2013 [facility] [place] [facility] [address] [id number] [place] [address]- 5833 23 Nov, 2013 [facility] [place] [facility] [address] [id number] [place] [address]- 0440 23 Nov, 2013 [facility] [place] [facility] [address] [id number] [place] [address]- 1209 17 Nov, 2013 [facility] [place] [facility] [address] [id number] [place] [address]- 6581 Nov, [facility] [place] [facility] [address] [id number] [place] [address]- 3383 Nov, [facility] [place] [facility] [address] [id number] [place] [address]- 9256 Nov, [facility] [place] [facility] [address] [id number] [place] [address]- 8960 Oct, [facility] [place] [facility] [address] [id number] [place] [address]- 2644 Oct, [facility] [place] [facility] [address] [id number] [place] [address]- 3980 Oct, [facility] [place] [facility] [address] [id number] [place] [address]- 5962 Oct, [facility] [place] [facility] [address] [id number] [place] [address]- 9741 Oct, [facility] [place] [facility] [address] [id number] [place] [address]- 2803 Oct, [facility] [place] [facility] [address] [id number] [place] [address]- 4666 Oct, [facility] [place] [facility] [address] [id number] [place] [address]- 7005 Oct, [facility] [place] [facility] [address] [id number] [place] [address]- 0896 Oct, [facility] [place] [facility] [address] [id number] [place] [address]- 3443 Sep, [facility] [place] [facility] [address] [id number] [place] [address]- 9057 Sep, [facility] [place] [facility] [address] [id number] [place] [address]- 8143 Sep, [facility] [place] [facility] [address] [id number] [place] [address]- 6346 Sep, [facility] [place] [facility] [address] [id number] [place] [address]- 9707 Sep, [facility] [place] [facility] [address] [id number] [place] [address]- 1828 Sep, [facility] [place] [facility] [address] [id number] [place] [address]- 6309 Sep, [facility] [place] [facility] [address] [id number] [place] [address]- 9555 Sep, [facility] [place] [facility] [address] [id number] [place] [address]- 4074 Sep, [facility] [place] [facility] [address] [id number] [place] [address]- 6734 Aug, [facility] [place] [facility] [address] [id number] [place] [address]- 0031 Aug, [facility] [place] [facility] [address] [id number] [place] [address]- 4271 Jun, [facility] [place] [facility] [address] [id number] [place] [address]- 1399 Jun, [facility] [place] [facility] [address] [id number] [place] [address]- 8626 May, [facility] [place] [facility] [address] [id number] [place] [address]- 2236 May, [facility] [place] [facility] [address] [id number] [place] [address]- 7135 Apr, [facility] [place] [facility] [address] [id number] [place] 8973 Apr, [facility] [place] [facility] [address] [id number] [place] [address]- 3617 Apr, [facility] [place] [facility] [address] [id number] [place] [address]- 2588 Apr, [facility] [place] [facility] [address] [id number] [place] [address]- 2546 Feb, [facility] [address] [id number] [place] [address]- 2256 Feb, [facility] [place] [facility] [address] [id number] [place] [address]- 2546 Jan, [facility] [place] [facility] [address] [id number] [place] [address]- 2546 Jan, [facility] [place] [facility] [address] [id number] [place] [address]- 2546 Nov, [facility] [place] [facility] [address] [id number] [place] [address]- 2546 Sep, [facility] [place] [facility] [address] [id number] [place] [address]- 2546 Sep, [facility] [place] [facility] [address] [id number] [place] [address]- 9086 Aug, [facility] [place] [facility] [address] [id number] [place] [address]- 9540 Aug, [facility] [place] [facility] [address] [id number] [place] [address]- 2546 Aug, [facility] [place] [facility] [address] [id number] [place] [address]- 2546 July, [facility] [place] [facility] [address] [id number] [place] [address]- 2546 July, [facility] [place] [facility] [address] [id number] [place] [address]- 2546 July, [facility] [place] [facility] [address] [id number] [place] [address] May, [facility] [place] [facility] [address] [id number] [place] [address] May, [facility] [place] [facility] [address] [id number] [place] [address] Jan, [facility] [place] [facility] [address] [id number] [place] [address] Jan, [facility] [place] [facility] [address] [id number] [place] [address] Jan, [facility] [place] [facility] [address] [id number] [place] [address] Jan, [facility] [place] [facility] [address] [id number] [place] [address] Jan, [facility] [place] [facility] [address] [id number] [place] [address] Jan, [facility] [place] [facility] [address] [id number] [place] [address] Jan, [facility] [place] [facility] [address] [id number] [place] [address] Jan, [facility] [place] [facility] [address] [id number] [place] [address] Dec, [facility] [place] [facility] [address] [id number] [place] [address] Dec, [facility] [place] [facility] [address] [id number] [place] [address] Aug, [facility] [place] [facility] [address] [id number] [address] July, [facility] [place] [facility] [address] [id number] [address] Jun, [facility] [place] [facility] [address] [id number] [place] [address] May, [facility] [place] [facility] [address] [id number] [address] May, [facility] [place] [facility] [address] [id number] [place] [address] May, [facility] [place] [facility] [address] [facility] [id number] [place] [id number] Jun, IMMUNIZATIONS No Known Immunizations SOCIAL HISTORY [...]
--- OUTSIDE RECORDS SUMMARY | 2018-02-18 08:27 | XMS REPORT ---
Author Author JANES PECK Organization [facility] Address [address] [place] [address] Care Team Providers Care Allergist Immunologist Name Role Phone CISCO JANES Unavailable PROBLEMS Type Condition ICD9-CM Code NHY34-NA Code Onset Dates Condition Status SNOMED Code Problem Angina pectoris I20.9 Active 615645666 Problem Dyshidrotic eczema L30.1 Active 051460059 Problem Polyneuropathy G62.9 Active 85584982 Problem Diverticulitis K57.92 Active 146276472 Problem Other obesity due to excess calories E66.09 Active 879862585 Problem Body mass index (BMI) of 30.0-30.9 in adult Z68.30 Active 028396151 Problem Type 2 diabetes mellitus with diabetic neuropathic arthropathy, 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 Active 006972928 Problem Anxiety F41.9 Active 32082979 Problem Type 2 diabetes mellitus without complication, without long-term current use of insulin E11.9 Active 409466420 Problem GERD (gastroesophageal reflux disease) K21.9 Active 604841329 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 792798230 Problem CAD (coronary artery disease) I25.10 Active 33847090 Problem Trochanteric bursitis of right hip M70.61 Active 545004458628512 Problem Syndrome X, 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 Active 922759699 Problem Seborrheic keratoses L82.1 Active 230392450 Problem Hyperlipidemia E78.5 Active 74431770 Problem Sciatica of right side M54.31 Active 15660737 Problem Vaginal cancer C52 Active 771389945 ALLERGIES Substance Reaction Event Type Date Status Pentazocine-Naloxone itching Drug Allergy Aug, Active Cipro Unknown Drug Allergy Aug, Active Actifed palpitations Drug Allergy Aug, Active Oxycodone unable to take more than 1 Drug Allergy Aug, Active Morphine Abdominal pain with IV form Drug Allergy Aug, Active ENCOUNTERS Encounter Location Date Diagnosis [place] [id number] [place] [address] 10359- 7794 Jan, [place] [id number] [place] [address] 46679- 1202 Oct, Onychomycosis B35.1 ; Onychocryptosis L60.0 and Type 2 diabetes mellitus without complication, without long-term current use of insulin E11.9 [place] [id number] [place] [address] 12242- 4640 Sep, Diverticulitis K57.92 [place] [id number] [place] [address] 55998- 2882 Sep, Diverticulitis K57.92 [place] [id number] [place] [address] 55225- 6353 Sep, [facility] [id number] [place] [address] 63407 -9795 Sep, Diarrhea, unspecified type R19.7 [place] [id number] [place] [address] 60986- 0890 Sep, [place] [id number] [place] [address] 38733- 0540 Sep, Pain in right hip M25.551 [place] [id number] [place] [address] 15659- 4885 Sep, [place] [id number] [place] [address] 16819- 3212 Aug, Acute cystitis with hematuria N30.01 [place] [id number] [place] [address] 06149- 6858 Aug, Type 2 diabetes mellitus without complication, [...] Angina pectoris I20.9 and Vaginal cancer 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 [facility] [address] 60505- 7070 Aug, [facility] [address] 11623- 3682 Aug, [place] [address] 05244- 8026 Aug, Vaginal candidiasis B37.3 and Vaginal itching L29.8 [place] [address] 74193- 8238 Aug, Dysuria R30.0 and Acute cystitis with hematuria N30.01 [place] [address] 01789- 0201 July, [place] [address] 03888- 0303 July, [place] [address] 16754- 7276 July, [place] [id number] [place] [address] 65249- 6314 Jun, [facility] [id number] [place] [address] 13029- 7420 Jun, [facility] [id number] [place] [address] 30605 -2240 Jun, Right anterior knee pain M25.561 [facility] [address] 91397- 3922 Jun, [facility] [address] 46863- 7008 Jun, Type 2 diabetes mellitus with diabetic neuropathic arthropathy, 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 [place] [id number] [place] [address] 99573- 5297 May, Acute non-recurrent maxillary sinusitis J01.00 and Acute suppurative otitis media of left ear without spontaneous rupture of tympanic membrane, recurrence not specified H66.002 [facility] [address] 72700 -3082 May, Viral upper respiratory tract infection J06.9 [place] [address] 45880- 9940 Apr, [place] [address] 97961- 8904 Apr, Type 2 diabetes mellitus with diabetic [...] index (BMI) of 32.0-32.9 in adult Z68.32 [place] [address] 19681- 8864 Apr, Type 2 diabetes mellitus without complication, without long- term current use of insulin E11.9 [place] [id number] [place] [address] 10983- 3454 02 Apr, 2017 Papule R23.8 and Actinic keratosis L57.0 [facility] [place] [address] 09007 -9257 Mar, Cough R05 ; Encounter for immunization Z23 ; Other viral agents as the cause of diseases classified elsewhere B97.89 and Acute upper respiratory infection, unspecified J06.9 [place] [id number] [place] [address] 71262- 7679 14 Jan, 2017 Migraine without status migrainosus, not intractable, unspecified migraine type G43.909 [place] [id number] [place] [address] 04493- 7430 Sep, [place] [address] 16004- 7321 Sep, Type 2 diabetes mellitus without complication, without long- term current use of insulin E11.9 ; Dehydration, mild E86.0 and Dyshidrotic eczema L30.[address] 28936- 5230 Sep, [place] [address] 24294- 6270 Aug, Migraine without status migrainosus, not intractable, unspecified migraine type G43.909 [place] [address] 69881- 7641 July, [place] [address] 84425- 8920 Jun, Medicare annual wellness visit, subsequent Z00.00 ; Hyperlipidemia E78.5 ; CAD (coronary artery disease) I25.10 and Vaginal cancer 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 [place] [id number] [place] [address] 55476- 5682 Jun, Sciatica M54.30 ; Pain in right hip M25.551 ; Dyshidrotic eczema L30.1 ; Candidiasis of breast B37.89 ; Right anterior knee pain M25.561 ; Hyperlipidemia E78.5 and Encounter for immunization Z23 [address] 20646- 1486 16 May, 2016 Ganglion cyst of joint of finger of left hand M67.442 [place] [address] 79603- 6390 May, Migraine without status migrainosus, not intractable, unspecified migraine type G43.909 [place] [id number] [place] [address] 95442- 9198 May, [place] [address] 03963- 8594 Apr, Skin lesion of back L98.9 and Encounter for immunization Z23 [place] [address] 51287- 4777 Mar, Candidal dermatitis B37.2 ; Seborrheic keratoses L82.1 ; Polyneuropathy G62.9 and Dysuria R30.0 [facility] [address] [id number] Mar, Dental examination Z01.20 [place] [address] 68930- 3802 Mar, Neuritis M79.2 [place] [address] 93667- 8269 Feb, Drug allergy Z88.9 [place] [address] 20069- 3365 Feb, Dysuria R30.0 [place] [address] 53029- 8686 Feb, Acute cystitis with hematuria N30.01 [place] [address] 40718- 2478 Feb, Dysuria R30.0 and Acute cystitis with hematuria N30.01 [place] [address] 31245- 4479 Feb, Angina pectoris I20.9 ; Finger pain, left M79.645 ; 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 ; GERD (gastroesophageal reflux disease) K21.9 ; Pain in right hip M25.551 ; Pain in left hip M25.552 and Encounter for screening mammogram for breast cancer Z12.31 [place] [id number] [place] [address] 90244- 2128 Dec, Right hip pain M25.551 [place] [address] 48940- 1776 13 Nov, 2015 GERD (gastroesophageal reflux disease) K21.9 ; Vaginal cancer C52 ; Pain in right hip M25.551 and Pain in left hip M25.552 [place] [address] 46739- 5478 Oct, Squamous cell carcinoma C80.[address] 17914- 1560 Oct, Skin lesions L98.9 and Encounter for well woman exam Z01.[address] 83228- 5944 Oct, [address] 24692- 4234 Sep, [facility] [place] [id number] [place] [address] 98432 -7297 Aug, Atopic dermatitis, unspecified type L20.9 and Tick bite, initial encounter W57.XXXA [facility] [address] 75587 -7098 Aug, [place] [address] 52449- 1950 July, Pre-procedural laboratory examination Z01.812 [place] [id number] [place] [address] 39944- 3626 July, Migraine without status migrainosus, not intractable, unspecified migraine type G43.909 ; Barretts esophagus without dysplasia K22.70 ; Sciatic nerve pain, left M54.32 and Localized swelling, mass and lump, head R22.[address] 07885- 2118 May, [facility] [id number] [place] [address] 04850- 1105 May, [facility] [address] 01270 -1281 May, Unspecified fall, initial encounter W19.XXXA ; Unspecified place in unspecified non-institutional (private) residence as the place of occurrence of the external cause Y92.009 ; Mid back pain M54.9 ; Rib pain on right side R07.81 ; Buttock pain M79.1 and Post-traumatic headache, unspecified , not intractable G44.309 [place] [address] 24661- 1218 Apr, Hypercholesteremia E78.0 ; Chest discomfort R07.89 ; 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 and History of sciatica Z86.69 [place] [address] 10949- 3707 Mar, Calculus of left kidney N20.0 ; Hyperlipidemia E78.5 ; Degeneration disease of medial meniscus, 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 ; Right knee pain M25.561 ; Sciatica M54.30 ; GERD (gastroesophageal reflux disease) K21.9 and 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 [place] [address] 50661- 7059 Mar, [place] [address] 09886- 2600 Mar, [place] [address] 92877- 5043 Mar, [place] [address] 26027- 4655 Mar, Plantar fasciitis M72.2 [place] [address] 04948- 1411 Mar, Degeneration disease of medial meniscus, 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 ; Right knee pain M25.561 ; Sciatica M54.30 ; GERD ( gastroesophageal reflux disease) K21.9 and 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 [facility] [address] 08160- 9548 Feb, [place] [address] 419913- 8632 Feb, Osteopenia M85.[address] 32574- 9686 Feb, Screening for malignant neoplasm of breast Z12.39 and Encounter for screening mammogram for malignant neoplasm of breast Z12.[address] 81083- 6380 Feb, Hip pain M25.[address] 99843- 2087 Feb, [address] 56362- 1465 Feb, Arthralgia of right hip M25.551 ; Sciatica M54.30 ; GERD ( gastroesophageal reflux disease) K21.9 ; 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 ; CAD ( coronary artery disease) I25.10 and Hyperlipidemia 272.4 [facility] [address] 49152 -3436 Jan, Pharyngitis J02.9 ; Body aches R52 ; Cough R05 and Sinusitis J32.[address] 74478- 7336 Nov, Contusion of foot 924.20 and Plantar fasciitis 728.71 [facility] [address] [id number] Oct, Dental examination V72.[address] 90999- 5279 Oct, [facility] [address] 85724- 6820 Oct, Coronary artery disease 414.00 [facility] [id number] [place] [address] 54269- 9009 Oct, Zoster 053.9 [facility] [id number] [place] [address] 54702- 8428 Sep, Pain in joint, ankle and foot 719.47 ; 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.85 ; Cervicalgia 723.1 ; Pain in joint, shoulder region 719.41 ; Coronary artery disease 414.00 and Need for shingles vaccine V04.89 [facility] [id number] [place] [address] [id number] Sep, Dental examination V72.2 [facility] [id number] [place] [address] 40070- 1146 Sep, [facility] [address] 03517- 0785 Aug, [facility] [id number] [place] [address] [id number] July, Dental examination V72.2 [facility] [id number] [place] [address] 61671- 9050 July, Cough 786.2 [facility] [id number] [place] [address] 94085- 9648 July, Sinusitis 473.9 and Means esophagus 530.85 [facility] [id number] [place] [address] 45623- 6524 Jun, [facility] [id number] [place] [address] 064042- 9021 Jun, [facility] [address] 57511- 5235 May, [facility] [id number] [place] [address] 98425- 1723 May, [facility] [address] 17599- 3688 May, [facility] [place] [facility] [address] [id number] [place] [address]- 9164 May, [facility] [place] [facility] [address] [id number] [place] [address]- 7872 May, [facility] [place] [facility] [address] [id number] [place] [address]- 2840 May, [facility] [place] [facility] [address] [id number] [place] [address]- 4352 May, [facility] [place] [facility] [address] [id number] [place] [address]- 9051 May, [facility] [place] [facility] [address] [id number] [place] [address]- 7624 Apr, [facility] [place] [facility] [address] [id number] [place] [address]- 7243 Apr, [facility] [place] [facility] [address] [id number] [place] [address]- 3360 Apr, [facility] [place] [facility] [address] [id number] [place] [address]- 5630 Mar, [facility] [place] [facility] [address] [id number] [place] [address]- 9493 Mar, [facility] [place] [facility] [address] [id number] [place] [address]- 0210 Mar, [facility] [place] [facility] [address] [id number] [place] [address]- 0173 Mar, [facility] [place] [facility] [address] [id number] [place] [address]- 9675 Feb, [facility] [place] [facility] [address] [id number] [place] [address]- 6080 Feb, [facility] [place] [facility] [address] [id number] [place] [address]- 6876 Feb, [facility] [place] [facility] [address] [id number] [place] [address]- 4233 Feb, [facility] [place] [facility] [address] [id number] [place] [address]- 1667 Feb, [facility] [place] [facility] [address] [id number] [place] [address]- 0573 Feb, [facility] [place] [facility] [address] [id number] [place] 5290 Feb, [facility] [place] [facility] [address] [id number] [place] [address]- 7223 Jan, [facility] [place] [facility] [address] [id number] [place] [address]- 9325 Jan, [facility] [place] [facility] [address] [id number] [place] [address]- 9061 Jan, [facility] [place] [facility] [address] [id number] [place] [address]- 3226 Jan, [facility] [place] [facility] [address] [id number] [place] [address]- 5685 Dec, [facility] [place] [facility] [address] [id number] [place] [address]- 8494 Dec, [facility] [place] [facility] [address] [id number] [place] [address]- 0552 Dec, [facility] [place] [facility] [address] [id number] [place] [address]- 0804 Dec, [facility] [place] [facility] [address] [id number] [place] [address]- 3660 Dec, [facility] [place] [facility] [address] [id number] [place] 5618 Dec, [facility] [place] [facility] [address] [id number] [place] [address]- 2957 24 Nov, 2013 [facility] [place] [facility] [address] [id number] [id number] 5760 Nov, [facility] [place] [facility] [address] [id number] [place] [address]- 0743 Nov, 2013 [facility] [place] [facility] [address] [id number] [place] [address]- 3664 Nov, [facility] [place] [facility] [address] [id number] [place] [address]- 2275 Nov, [facility] [place] [facility] [address] [id number] [place] [address]- 0794 Nov, [facility] [place] [facility] [address] [id number] [place] [address]- 3676 Nov, [facility] [place] [facility] [address] [id number] [place] [address]- 6615 Oct, [facility] [place] [facility] [address] [id number] [place] [address]- 0772 Oct, [facility] [place] [facility] [address] [id number] [place] [address]- 5331 Oct, [facility] [place] [facility] [address] [id number] [place] [address]- 2318 Oct, [facility] [place] [facility] [address] [id number] [place] [address]- 6454 Oct, [facility] [place] [facility] [address] [id number] [place] [address]- 6283 Oct, [facility] [place] [facility] [address] [id number] [place] [address]- 3658 Oct, [facility] [place] [facility] [address] [id number] [place] [address]- 4145 Oct, [facility] [place] [facility] [address] [id number] [place] [address]- 2319 Oct, [facility] [place] [facility] [address] [id number] [place] [address]- 1483 Sep, [facility] [place] [facility] [address] [id number] [place] [address]- 0293 14 Sep, 2013 [facility] [place] [facility] [address] [id number] [place] [address]- 6219 Sep, 2013 [facility] [place] [facility] [address] [id number] [place] [address]- 7384 Sep, 2013 [facility] [place] [facility] [address] [id number] [place] [address]- 8782 Sep, 2013 [facility] [place] [facility] [address] [id number] [place] [address]- 0613 Sep, [facility] [place] [facility] [address] [id number] [place] [address]- 5716 Sep, [facility] [place] [facility] [address] [id number] [place] [address]- 4305 Sep, [facility] [place] [facility] [address] [id number] [place] [address]- 2582 Sep, [facility] [place] [facility] [address] [id number] [place] [address]- 9264 Aug, [facility] [place] [facility] [address] [id number] [place] [address]- 1097 Aug, [facility] [place] [facility] [address] [id number] [place] [address]- 5185 Jun, [facility] [place] [facility] [address] [id number] [place] [address]- 2760 Jun, [facility] [place] [facility] [address] [id number] [place] [address]- 4200 May, [facility] [place] [facility] [address] [id number] [place] [address]- 1295 May, [facility] [place] [facility] [address] [id number] [place] [address]- 3925 Apr, [facility] [place] [facility] [address] [id number] [place] [address]- 1932 Apr, [facility] [place] [facility] [address] [id number] [place] [address]- 6781 Apr, [facility] [address] [id number] [place] [address]- 2416 Apr, [facility] [address] [id number] [place] [address]- 1740 Feb, [facility] [address] [id number] [place] [address]- 3207 Feb, [facility] [address] [id number] [place] [address]- 3397 Jan, [facility] [address] [id number] [place] [address]- 2321 Jan, [facility] [address] [id number] [place] [address]- 2340 Nov, [facility] [address] [id number] [place] [address]- 1928 Sep, [facility] [address] [id number] [place] [address]- 5827 Sep, [facility] [address] [id number] [place] [address]- 8435 Aug, [facility] [address] [id number] [place] [address]- 8517 Aug, [facility] [address] [id number] [place] [address]- 5442 Aug, [facility] [place] [facility] [address] [id number] [place] [address]- 8452 July, [facility] [place] [facility] [address] [id number] [place] [address]- 2156 July, [facility] [place] [facility] [address] [id number] [place] [address]- 2546 July, [facility] [place] [facility] [address] [id number] [place] [address]- 8993 May, [facility] [place] [facility] [address] [id number] [place] [address]- 6288 May, [facility] [place] [facility] [address] [id number] [place] [address]- 7719 Jan, [facility] [place] [facility] [address] [id number] [place] [address] Jan, [facility] [place] [facility] [address] [id number] [place] [address] Jan, [facility] [place] [facility] [address] [id number] [place] [address] Jan, [facility] [place] [facility] [address] [id number] [place] [address] Jan, [facility] [place] [facility] [address] [id number] [place] [address] Jan, [facility] [place] [facility] [address] [id number] [place] [address] Jan, [facility] [place] [facility] [address] [id number] [place] [address] Jan, [facility] [place] [facility] [address] [id number] [place] [address] Dec, [facility] [place] [facility] [address] [id number] [place] [address] Dec, [facility] [place] [facility] [address] [id number] [place] [address] Aug, [facility] [place] [facility] [address] [id number] [place] [address] July, [facility] [place] [facility] [address] [id number] [place] [address] Jun, [facility] [place] [facility] [address] [id number] [place] [address] May, [facility] [place] [facility] [address] [facility] [id number] [place] [address] May, 2011 [facility] [address] [facility] [id number] [place] [address] May, [facility] [address] [facility] [id number] [place] [address] Jun, IMMUNIZATIONS No Known Immunizations SOCIAL HISTORY Never Assessed REASON FOR VISIT vaginal itching and swelling-TIFFANI Ang, Wanting her toenails cut PLAN OF CARE Activity Details Follow Up prn Reason:as scheduled VITAL SIGNS Height 68 in 2017-08-27 Weight 203.8 lbs 2017-08-27 Temperature 97.7 degrees Fahrenheit 2017-08-27 Heart Rate 72 bpm 2017-08-27 Respiratory Rate 18 2017-08-27 BMI 30.98 kg/m2 2017-08-27 Blood pressure systolic 126 mmHg 2017-08-27 Blood pressure diastolic 68 mmHg 2017-08-27 MEDICATIONS Medication Instructions Dosage Frequency Start Date End Date Duration Status Eliquis 5 mg Orally 2 times a day 1 tablet 12h July, 30 days Active Pantoprazole Sodium 40 MG TAKE ONE TABLET BY MOUTH ONCE DAILY 30 Active Effort 3-6-9 Not-Taking Macrobid 100 mg Orally every 12 hrs 1 capsule with food 12h Aug, Aug, 7 day(s) Active Glucocard Expression Test 1 subcutaneously 2 times a day test 2 times per day 12h July, 90 days Active Carafate 1 GM TAKE ONE TABLET BY MOUTH FOUR TIMES DAILY 30 Active B Complex Orally Once a day 24h Not-Taking Nitrostat 0.4 MG DISSOLVE ONE TABLET SUBLINGUALLY NEEDED FOR CHEST PAIN ; MAY REPEAT TWO TIMES EVERY 5 MINUTES THEN GO TO ER Active Lyrica 50 mg Orally Once a day 1 capsule 24h 24 Mar, 2016 21 days Not- Taking Cyclobenzaprine HCl 10 mg 1 tablet Active Melatonin 5 MG Orally Once a day 1 tablet at bedtime as needed with food 24h Not-Taking Cinnamon Orally 2 times a day 12h Not-Taking Centrum Silver 50+Women - Not-Taking Calcium Magnesium Not-Taking Metformin HCl 500 MG TAKE ONE TABLET BY MOUTH ONCE DAILY WITH EVENING MEAL 90 Active Cetirizine HCl Not-Taking Percocet 5-325 MG Orally 2 times a day as needed 1 tablet as needed 14 Jan, 2017 28 days Not-Taking HydrOXYzine HCl 25 MG TAKE ONE TABLET BY MOUTH EVERY 8 HOURS NEEDED 30 Active Vitamin D3 Ultra Strength 5000 UNIT Orally twice a day 1 capsule 12h Not-Taking Diflucan 150 MG Orally Once a day 1 tablet toady and repeat in 10 days 24h Aug, Aug, 2 days Active Pravastatin Sodium 20 MG TAKE ONE TABLET BY MOUTH ONCE DAILY 90 Active Triamcinolone Acetonide 0.1 % Externally Twice a day prn apply thin layer to hands Jun, 10 days Not-Taking RESULTS No Results PROCEDURES Procedure Date Ordered Result Body Site URINALYSIS, AUTO, W/O SCOPE August 27, 2017 LAB NOT BILLED BY [employer] August 27, 2017 [facility] VISIT ESTABLISHED PATIENT August 27, 2017 INSTRUCTIONS MEDICATIONS ADMINISTERED No Known Medications [...]
--- OUTSIDE RECORDS SUMMARY | 2018-02-18 08:28 | XMS REPORT ---
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 Name Role Phone JANES PECK Unavailable PROBLEMS Type Condition ICD9-CM Code JSE20-NB Code Onset Dates Condition Status SNOMED Code Problem Angina pectoris I20.9 Active 027009732 Problem Dyshidrotic eczema L30.1 Active 559297465 Problem Polyneuropathy G62.9 Active 05037299 Problem Diverticulitis K57.92 Active 776058832 Problem Other obesity due to excess calories E66.09 Active 330868721 Problem Body mass index (BMI) of 30.0-30.9 in adult Z68.30 Active 269494960 Problem Type 2 diabetes mellitus with diabetic neuropathic arthropathy, 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 Active 233522968 Problem Anxiety F41.9 Active 96008543 Problem Type 2 diabetes mellitus without complication, without long-term current use of insulin E11.9 Active 624996691 Problem GERD (gastroesophageal reflux disease) K21.9 Active 748622235 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 [id number] [address] Jan, [facility] [address] [facility] [id number], [place] [address] Oct, Onychomycosis B35.1 ; Onychocryptosis L60.0 and Type 2 diabetes mellitus without complication, without long-term current use of insulin E11.9 [place] [id number] [place] [address] 57339- 9698 Sep, Diverticulitis K57.92 [place] [address] 22028- 8590 Sep, Diverticulitis K57.92 [place] [address] 93931- 1537 Sep, [facility] [address] [address]40 Sep, Diarrhea, unspecified type R19.7 [place] [address] 07373- 4349 Sep, [place] [address] 53054- 4493 Sep, Pain in right hip M25.551 [place] [address] 61409- 9429 Sep, [place] [address] 54083- 7432 Aug, Acute cystitis with hematuria N30.01 [place] [address] 19719- 5515 Aug, Type 2 diabetes mellitus without complication, [...] Angina pectoris I20.9 and Vaginal cancer C52 [facility] [id number] [place] [address] 44561- 3105 Aug, [facility] [address] 59033- 8700 Aug, [facility] [id number] [place] [address] 82047- 9405 Aug, Vaginal candidiasis B37.3 and Vaginal itching L29.8 [facility] [address] 21503- 3066 Aug, Dysuria R30.0 and Acute cystitis with hematuria N30.01 [facility] [address] 64699- 5145 July, [facility] [address] 99989- 5634 July, [facility] [address] 88169- 7856 July, [facility] [id number] [place] [address] 00160- 0595 Jun, [facility] [id number] [place] [address] 86423- 4454 Jun, [facility]ALK IN [facility] [id number] [place] [address] 61382 -0542 Jun, Right anterior knee pain M25.561 [facility] [id number] [place] [address] 83540- 4484 Jun, [facility] [id number] [place] [address] 32007- 7025 Jun, Type 2 diabetes mellitus with diabetic neuropathic arthropathy, 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 [id number] [place] [address] 08241 -7329 10 May, 2017 Viral upper respiratory tract infection J06.9 [place] [address] 01448- 4754 Apr, [place] [address] 16367- 2199 Apr, Type 2 diabetes mellitus with diabetic [...] index (BMI) of 32.0-32.9 in adult Z68.32 [place] [address] 80097- 1831 09 Apr, 2017 Type 2 diabetes mellitus without complication, without long- term current use of insulin E11.9 [place] [id number] [place] [address] 74571- 7609 02 Apr, 2017 Papule R23.8 and Actinic keratosis L57.0 [facility] [address] 25997 -4323 11 Mar, 2017 Cough R05 ; Encounter for immunization Z23 ; Other viral agents as the cause of diseases classified elsewhere B97.89 and Acute upper respiratory infection, unspecified J06.9 [place] [address] 57097- 2473 14 Jan, 2017 Migraine without status migrainosus, not intractable, unspecified migraine type G43.909 [place] [address] 52242- 4810 Sep, [place] [id number] [place] [address] 63204- 5271 Sep, Type 2 diabetes mellitus without complication, without long- term current use of insulin E11.9 ; Dehydration, mild E86.0 and Dyshidrotic eczema L30.1 [place] [id number] [place] [address] 92779- 1751 Sep, [place] [id number] [place] [address] 39480- 7667 Aug, Migraine without status migrainosus, not intractable, unspecified migraine type G43.[address] 75468- 5333 July, [place] [id number] [place] [address] 37846- 7788 Jun, Medicare annual wellness visit, subsequent Z00.00 ; Hyperlipidemia E78.5 ; CAD (coronary artery disease) I25.10 and Vaginal cancer C52 [place] [id number] [place] [address] 54726- 1924 Jun, Sciatica M54.30 ; Pain in right hip M25.551 ; Dyshidrotic eczema L30.1 ; Candidiasis of breast B37.89 ; Right anterior knee pain M25.561 ; Hyperlipidemia E78.5 and Encounter for immunization Z23 [place] [id number] [place] [address] 68658- 0213 May, Ganglion cyst of joint of finger of left hand M67.442 [place] [id number] [place] [address] 65531- 4923 May, Migraine without status migrainosus, not intractable, unspecified migraine type G43.909 [place] [id number] [place] [address] 43472- 6660 May, [place] [id number] [place] [address] 21537- 2143 09 Apr, 2016 Skin lesion of back L98.9 and Encounter for immunization Z23 [place] [id number] [place] [address] 06831- 4274 Mar, Candidal dermatitis B37.2 ; Seborrheic keratoses L82.1 ; Polyneuropathy G62.9 and Dysuria R30.0 [facility] [id number] [place] [address] [id number] Mar, Dental examination Z01.20 [place] [address] 53996- 1582 Mar, Neuritis M79.2 [place] [address] 04104- 9616 30 Feb, 2016 Drug allergy Z88.9 [place] [id number] [place] [address] 02821- 1795 Feb, Dysuria R30.0 [place] [address] 47095- 6158 Feb, Acute cystitis with hematuria N30.01 [place] [address] 17046- 4143 Feb, Dysuria R30.0 and Acute cystitis with hematuria N30.01 [place] [id number] [place] [address] 15326- 5961 Feb, Angina pectoris I20.9 ; Finger pain, left M79.645 ; 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 ; GERD (gastroesophageal reflux disease) K21.9 ; Pain in right hip M25.551 ; Pain in left hip M25.552 and Encounter for screening mammogram for breast cancer Z12.31 [place] [id number] [place] [address] 08421- 3303 Dec, Right hip pain M25.551 [place] [id number] [place] [address] 07056- 8758 Nov, GERD (gastroesophageal reflux disease) K21.9 ; Vaginal cancer C52 ; Pain in right hip M25.551 and Pain in left hip M25.552 [place] [address] 13326- 3242 Oct, Squamous cell carcinoma C80.[address] 72189- 6750 Oct, Skin lesions L98.9 and Encounter for well woman exam Z01.419 [place] [address] 59046- 8205 Oct, [address] 77087- 7269 Sep, [facility] IN [address] 12612 -0169 Aug, Atopic dermatitis, unspecified type L20.9 and Tick bite, initial encounter W57.XXXA [facility] IN [address] 20943 -7003 Aug, [address] 59607- 1506 July, Pre-procedural laboratory examination Z01.812 [place] [id number] [place] [address] 20424- 2997 July, Migraine without status migrainosus, not intractable, unspecified migraine type G43.909 ; Barretts esophagus without dysplasia K22.70 ; Sciatic nerve pain, left M54.32 and Localized swelling, mass and lump, head R22.[address] 34616- 0001 May, [address] 18745- 2913 May, [facility] IN [address] 42546 -3059 May, Unspecified fall, initial encounter W19.XXXA ; Unspecified place in unspecified non-institutional (private) residence as the place of occurrence of the external cause Y92.009 ; Mid back pain M54.9 ; Rib pain on right side R07.81 ; Buttock pain M79.1 and Post-traumatic headache, unspecified , not intractable G44.309 [place] [address] 82575- 9136 Apr, Hypercholesteremia E78.0 ; Chest discomfort R07.89 ; 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 and History of sciatica Z86.69 [place] [address] 70582- 8679 Mar, Hyperlipidemia E78.5 ; Calculus of left kidney N20.0 ; Degeneration disease of medial meniscus, 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 ; Right knee pain M25.561 ; Sciatica M54.30 ; GERD (gastroesophageal reflux disease) K21.9 and 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 [place] [address] 44325- 4664 Mar, [place] [address] 49737- 7328 Mar, [place] [address] 46183- 3427 Mar, [place] [address] 26609- 6542 Mar, Plantar fasciitis M72.2 [place] [address] 60114- 7288 Mar, Degeneration disease of medial meniscus, 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 ; Right knee pain M25.561 ; Sciatica M54.30 ; GERD ( gastroesophageal reflux disease) K21.9 and 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 [place] [address] 49105- 2642 Feb, [place] [address] 38620- 4497 16 Feb, 2015 Osteopenia M85.80 [facility] [address] 32500- 3465 15 Feb, 2015 Screening for malignant neoplasm of breast Z12.39 and Encounter for screening mammogram for malignant neoplasm of breast Z12.31 [place] [address] 61857- 7027 Feb, Hip pain M25.559 [place] [address] 47648- 3765 Feb, [address] 43153- 4929 Feb, Arthralgia of right hip M25.551 ; Sciatica M54.30 ; GERD ( gastroesophageal reflux disease) K21.9 ; 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 ; CAD ( coronary artery disease) I25.10 and Hyperlipidemia 272.4 [facility] IN [facility] [address] 72263 -4365 Jan, Pharyngitis J02.9 ; Body aches R52 ; Cough R05 and Sinusitis J32.[address] 33767- 8193 Nov, Contusion of foot 924.20 and Plantar fasciitis 728.71 [facility] [address] [id number] Oct, Dental examination V72.2 [place] [address] 63750- 8764 Oct, [place] [address] 76815- 2564 Oct, Coronary artery disease 414.00 [place] [address] 60931- 2082 Oct, Zoster 053.9 [place] [address] 91959- 7599 Sep, Pain in joint, ankle and foot 719.47 ; 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.85 ; Cervicalgia 723.1 ; Pain in joint, shoulder region 719.41 ; Coronary artery disease 414.00 and Need for shingles vaccine V04.89 [facility] [address] [id number] Sep, Dental examination V72.2 [facility] [id number] [place] [address] 52217- 2546 Sep, [facility] [id number] [place] [address] 06557- 7056 Aug, [facility] [id number] [place] [address] [id number] July, Dental examination V72.2 [facility] [id number] [place] [address] 18199- 1416 July, Cough 786.2 [facility] [id number] [place] [address] 31297- 5546 July, Sinusitis 473.9 and Means esophagus 530.85 [facility] [id number] [place] [address] 45875- 7076 Jun, [facility] [id number] [place] [address] 45965- 7106 Jun, [facility] [id number] [place] [address] 78434- 7976 May, [facility] [id number] [place] [address] 76850- 7766 May, [facility] [id number] [place] [address] 89481- 1696 May, [facility] [id number] [place] [address] 84932- 1286 May, [facility] [id number] [place] [address] 379384- 3136 May, [facility] [place] [facility] [address] [id number] [place] [address]- 2059 May, [facility] [place] [facility] [address] [id number] [place] [address]- 1706 May, [facility] [place] [facility] [address] [id number] [place] [address]- 9346 May, [facility] [place] [facility] [address] [id number] [place] [address]- 0146 Apr, [facility] [place] [facility] [address] [id number] [place] [address]- 1276 Apr, [facility] [place] [facility] [address] [id number] [place] [address]- 8517 Apr, [facility] [place] [facility] [address] [id number] [place] [address]- 7041 Mar, [facility] [place] [facility] [address] [id number] [place] [address]- 0407 Mar, [facility] [place] [facility] [address] [id number] [place] [address]- 3740 Mar, [facility] [place] [facility] [address] [id number] [place] [address]- 7634 Mar, [facility] [place] [facility] [address] [id number] [place] [address]- 2020 Feb, [facility] [place] [facility] [address] [id number], [place] [address]- 0672 Feb, [facility] [place] [facility] [address] [id number] [place] [address]- 6449 Feb, [facility] [place] [facility] [address] [id number] [place] [address]- 3484 Feb, [facility] [place] [facility] [address] [id number] [place] [address]- 6082 Feb, [facility] [place] [facility] [address] [id number] [place] [address]- 5508 Feb, [facility] [place] [facility] [address] [id number] [place] [address]- 5467 Feb, [facility] [place] [facility] [address] [id number] [place] [address]- 4146 Jan, [facility] [place] [facility] [address] [id number] [place] [address]- 2800 Jan, [facility] [place] [facility] [address] [id number] [place] [address]- 7707 Jan, [facility] [place] [facility] [address] [id number] [place] [address]- 1828 Jan, [facility] [place] [facility] [address] [id number] [place] [address]- 9988 Dec, [facility] [place] [facility] [address] [id number] [place] [address]- 1406 Dec, [facility] [place] [facility] [address] [id number] [place] [address]- 9540 Dec, [facility] [place] [facility] [address] [id number] [place] [address]- 2924 Dec, [facility] [place] [facility] [address] [id number] [place] [address]- 9451 Dec, [facility] [place] [facility] [address] [id number] [place] [address]- 4738 16 Dec, 2013 [facility] [place] [facility] [address] [id number] [place] [address]- 8652 24 Nov, 2013 [facility] [place] [facility] [address] [id number] [place] [address]- 3848 23 Nov, 2013 [facility] [place] [facility] [address] [id number] [place] [address]- 0590 23 Nov, 2013 [facility] [place] [facility] [address] [id number] [place] [address]- 1177 17 Nov, 2013 [facility] [place] [facility] [address] [id number] [place] [address]- 7884 Nov, [facility] [place] [facility] [address] [id number] [place] [address]- 8249 Nov, [facility] [place] [facility] [address] [id number] [place] [address]- 6631 Nov, [facility] [place] [facility] [address] [id number] [place] [address]- 7930 Oct, [facility] [place] [facility] [address] [id number] [place] [address]- 8215 Oct, [facility] [place] [facility] [address] [id number] [place] [address]- 4516 Oct, [facility] [place] [facility] [address] [id number] [place] [address]- 1817 Oct, [facility] [place] [facility] [address] [id number] [place] [address]- 8255 Oct, [facility] [place] [facility] [address] [id number] [place] [address]- 5922 Oct, [facility] [place] [facility] [address] [id number] [place] [address]- 4887 Oct, [facility] [place] [facility] [address] [id number] [place] [address]- 2682 Oct, [facility] [place] [facility] [address] [id number] [place] [address]- 8689 Oct, [facility] [place] [facility] [address] [id number] [place] [address]- 7281 Sep, [facility] [place] [facility] [address] [id number] [place] [address]- 5086 Sep, [facility] [place] [facility] [address] [id number] [place] [address]- 0853 Sep, [facility] [place] [facility] [address] [id number] [place] [address]- 8576 Sep, [facility] [place] [facility] [address] [id number] [place] [address]- 5280 Sep, [facility] [place] [facility] [address] [id number] [place] [address]- 5266 Sep, [facility] [place] [facility] [address] [id number] [place] [address]- 4254 Sep, [facility] [place] [facility] [address] [id number] [place] [address]- 5633 Sep, [facility] [place] [facility] [address] [id number] [place] [address]- 5626 Sep, [facility] [place] [facility] [address] [id number] [place] [address]- 2735 Aug, [facility] [place] [facility] [address] [id number] [place] [address]- 7519 Aug, [facility] [place] [facility] [address] [id number] [place] [address]- 0253 Jun, [facility] [place] [facility] [address] [id number] [place] [address]- 6791 Jun, [facility] [place] [facility] [address] [id number] [place] [address]- 5838 May, [facility] [place] [facility] [address] [id number] [place] [address]- 3734 May, [facility] [place] [facility] [address] [id number] [place] [address]- 2850 Apr, [facility] [place] [facility] [address] [id number] [place] 2491 Apr, [facility] [place] [facility] [address] [id number] [place] [address]- 7441 Apr, [facility] [place] [facility] [address] [id number] [place] [address]- 3792 Apr, [facility] [place] [facility] [address] [id number] [place] [address]- 2546 Feb, [facility] [address] [id number] [place] [address]- 1406 Feb, [facility] [place] [facility] [address] [id number] [place] [address]- 2546 Jan, [facility] [place] [facility] [address] [id number] [place] [address]- 2546 Jan, [facility] [place] [facility] [address] [id number] [place] [address]- 2546 Nov, [facility] [place] [facility] [address] [id number] [place] [address]- 2546 Sep, [facility] [place] [facility] [address] [id number] [place] [address]- 2546 Sep, [facility] [place] [facility] [address] [id number] [place] [address]- 6896 Aug, [facility] [place] [facility] [address] [id number] [place] [address]- 0736 Aug, [facility] [place] [facility] [address] [id number] [place] [address]- 2546 Aug, [facility] [place] [facility] [address] [id number] [place] [address] July, [facility] [place] [facility] [address] [id number] [place] [address] July, [facility] [place] [facility] [address] [id number] [place] [address] July, [facility] [place] [facility] [address] [id number] [place] [address] May, [facility] [place] [facility] [address] [id number] [place] [address] May, [facility] [place] [facility] [address] [id number] [place] [address] Jan, [facility] [place] [facility] [address] [id number] [place] [address] Jan, [facility] [place] [facility] [address] [id number] [place] [address] Jan, [facility] [place] [facility] [address] [id number] [place] [address] Jan, [facility] [place] [facility] [address] [id number] [place] [address] Jan, [facility] [place] [facility] [address] [id number] [place] [address] Jan, [facility] [place] [facility] [address] [id number] [place] [address] Jan, [facility] [place] [facility] [address] [id number] [place] [address] Jan, [facility] [place] [facility] [address] [id number] [place] [address] Dec, [facility] [place] [facility] [address] [id number] [place] [address] Dec, [facility] [place] [facility] [address] [id number] [place] [address] Aug, [facility] [place] [facility] [address] [id number], [place] [address] July, [facility] [place] [facility] [address] [id number], [place] [address] Jun, [facility] [place] [facility] [address] [id number] [place] [address] May, [facility] [place] [facility] [address] [id number], [place] [address] May, [facility] [place] [facility] [address] [id number] [place] [address] May, [facility] [place] [facility] [address] [facility] [id number] [place] [address] 13 Jun, 2008 IMMUNIZATIONS No Known Immunizations SOCIAL HISTORY Never Assessed REASON FOR VISIT PALS PLAN OF CARE VITAL SIGNS MEDICATIONS Medication Instructions Dosage Frequency Start Date End Date Duration Status Eliquis 5 mg Orally 2 times a day 1 tablet 12h 17 Jul, 2017 30 days Active RESULTS No Results PROCEDURES [...]
--- OUTSIDE RECORDS SUMMARY | 2018-02-18 08:28 | XMS REPORT ---
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 Name Role Phone GLORIA MARSHALL Unavailable PROBLEMS Type Condition ICD9-CM Code DZL46-HV Code Onset Dates Condition Status SNOMED Code Problem Angina pectoris I20.9 Active 613434717 Problem Dyshidrotic eczema L30.1 Active 543095562 Problem Polyneuropathy G62.9 Active 88572410 Problem Diverticulitis K57.92 Active 682553407 Problem Other obesity due to excess calories E66.09 Active 269369608 Problem Body mass index (BMI) of 30.0-30.9 in adult Z68.30 Active 657804004 Problem Type 2 diabetes mellitus with diabetic neuropathic arthropathy, 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 Active 811342419 Problem Anxiety F41.9 Active 41458726 Problem Type 2 diabetes mellitus without complication, without long-term current use of insulin E11.9 Active 763094996 Problem GERD (gastroesophageal reflux disease) K21.9 Active 707852565 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 387629528 Problem CAD (coronary artery disease) I25.10 Active 88453483 Problem Trochanteric bursitis of right hip M70.61 Active 295991897768880 Problem Syndrome X, 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 Active 165981768 Problem Seborrheic keratoses L82.1 Active 832441432 Problem Hyperlipidemia E78.5 Active 18353144 Problem Sciatica of right side M54.31 Active 05556772 Problem Vaginal cancer C52 Active 825822495 ALLERGIES Substance Reaction Event Type Date Status Pentazocine-Naloxone itching Drug Allergy Aug, Active Cipro Unknown Drug Allergy Aug, Active Actifed palpitations Drug Allergy Aug, Active Oxycodone unable to take more than 1 Drug Allergy Aug, Active Morphine Abdominal pain with IV form Drug Allergy Aug, Active ENCOUNTERS Encounter Location Date Diagnosis [place] [address] [address] Jan, [place] [address] 96375- 0791 Oct, Onychomycosis B35.1 ; Onychocryptosis L60.0 and Type 2 diabetes mellitus without complication, without long-term current use of insulin E11.9 [place] [address] 43937- 4530 Sep, Diverticulitis K57.92 [place] [address] 56303- 6540 Sep, Diverticulitis K57.92 [place] [address] 05661- 9277 Sep, [facility] [address] [address] Sep, Diarrhea, unspecified type R19.7 [place] [address] 97473- 4459 Sep, [place] [address] 18974- 2852 Sep, Pain in right hip M25.551 [place] [address] 71651- 7218 Sep, [place] [address] [address] [place] [id number] [place] [address] 84159- 4184 Aug, Acute cystitis with hematuria N30.01 [place] [address] 57328- 6655 Aug, Type 2 diabetes mellitus without complication, [...] Angina pectoris I20.9 and Vaginal cancer C52 [facility] [address] [place] [id number] [place] [address] 44543- 2921 Aug, [facility] [address] 26583- 4738 Aug, [place] [address] 58942- 6531 Aug, Vaginal candidiasis B37.3 and Vaginal itching L29.8 [place] [address] [place] [id number] [place] [address] 12125- 5091 Aug, Dysuria R30.0 and Acute cystitis with hematuria N30.01 [place] [address] 76212- 6360 July, [place] [address] 56966- 2599 July, [facility] [address] 02497- 0138 July, [place] [address] [place] [id number] [place] [address] 55985- 2074 Jun, [facility] [address] [place] [id number] [place] [address] 90416- 0781 Jun, [facility] [address] [place] [id number] [place] [address] 13613 -9235 Jun, Right anterior knee pain M25.561 [facility] [address] 38784- 4448 Jun, [facility] [address] [place] [id number] [place] [address] 75654- 3870 Jun, Type 2 diabetes mellitus with diabetic neuropathic arthropathy, 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 [place] [address] [place] [id number] [place] [address] 20795- 0986 May, Acute non-recurrent maxillary sinusitis J01.00 and Acute suppurative otitis media of left ear without spontaneous rupture of tympanic membrane, recurrence not specified H66.002 [facility] [place] [address] 68050 -7593 May, Viral upper respiratory tract infection J06.9 [place] [address] 51640- 7583 Apr, [place] [address] 88281- 9267 Apr, Type 2 diabetes mellitus with diabetic [...] index (BMI) of 32.0-32.9 in adult Z68.32 [place] [address] 99920- 3615 09 Apr, 2017 Type 2 diabetes mellitus without complication, without long- term current use of insulin E11.9 [place] [address] [place] [id number] [place] [address] 42700- 2532 02 Apr, 2017 Papule R23.8 and Actinic keratosis L57.0 [facility] [address] [place] [id number] [place] [address] 72642 -6723 Mar, Cough R05 ; Encounter for immunization Z23 ; Other viral agents as the cause of diseases classified elsewhere B97.89 and Acute upper respiratory infection, unspecified J06.9 [place] [address] [place] [id number] [place] [address] 05273- 0987 14 Jan, 2017 Migraine without status migrainosus, not intractable, unspecified migraine type G43.909 [place] [address] [place] [id number] [place] [address] 81239- 7068 Sep, [place] [address] 81937- 9810 Sep, Type 2 diabetes mellitus without complication, without long- term current use of insulin E11.9 ; Dehydration, mild E86.0 and Dyshidrotic eczema L30.1 [place] [address] 50444- 6249 Sep, [place] [address] 38343- 3319 Aug, Migraine without status migrainosus, not intractable, unspecified migraine type G43.909 [place] [address] 25359- 5582 July, [place] [address] 11022- 9033 Jun, Medicare annual wellness visit, subsequent Z00.00 ; Hyperlipidemia E78.5 ; CAD (coronary artery disease) I25.10 and Vaginal cancer C52 [place] [id number] [place] [address] 52889- 0629 Jun, Sciatica M54.30 ; Pain in right hip M25.551 ; Dyshidrotic eczema L30.1 ; Candidiasis of breast B37.89 ; Right anterior knee pain M25.561 ; Hyperlipidemia E78.5 and Encounter for immunization Z23 [address] 26480- 7212 16 May, 2016 Ganglion cyst of joint of finger of left hand M67.442 [place] [address] [place] [id number] [place] [address] 97174- 3195 May, Migraine without status migrainosus, not intractable, unspecified migraine type G43.909 [facility] [address] 31711- 7578 May, [place] [address] 95243- 3293 Apr, Skin lesion of back L98.9 and Encounter for immunization Z23 [place] [address] 03894- 3738 Mar, Candidal dermatitis B37.2 ; Seborrheic keratoses L82.1 ; Polyneuropathy G62.9 and Dysuria R30.0 [facility] [address] [id number] Mar, Dental examination Z01.20 [place] [address] 38186- 0375 Mar, Neuritis M79.2 [place] [address] 47119- 6554 Feb, Drug allergy Z88.9 [place] [address] 68370- 8716 Feb, Dysuria R30.0 [place] [address] 47752- 0271 Feb, Acute cystitis with hematuria N30.01 [place] [address] 29020- 1941 Feb, Dysuria R30.0 and Acute cystitis with hematuria N30.01 [place] [address] 32888- 1254 Feb, Angina pectoris I20.9 ; Finger pain, left M79.645 ; 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 ; GERD (gastroesophageal reflux disease) K21.9 ; Pain in right hip M25.551 ; Pain in left hip M25.552 and Encounter for screening mammogram for breast cancer Z12.31 [place] [address] [place] [id number] [place] [address] 90176- 6872 Dec, Right hip pain M25.551 [place] [address] 88124- 4451 13 Nov, 2015 GERD (gastroesophageal reflux disease) K21.9 ; Vaginal cancer C52 ; Pain in right hip M25.551 and Pain in left hip M25.552 [place] [address] 78441- 3660 Oct, Squamous cell carcinoma C80.[address] 92113- 2225 Oct, Skin lesions L98.9 and Encounter for well woman exam Z01.419 [place] [address] 72675- 7559 Oct, [place] [address] 13510- 0647 Sep, [facility] [place] [id number] [place] [address] 99163 -1716 Aug, Atopic dermatitis, unspecified type L20.9 and Tick bite, initial encounter W57.XXXA [facility] [place] [id number] [place] [address] 57358 -3997 Aug, [place] [address] 74778- 4857 July, Pre-procedural laboratory examination Z01.812 [place] [address] [place] [id number] [place] [address] 58985- 8716 July, Migraine without status migrainosus, not intractable, unspecified migraine type G43.909 ; Barretts esophagus without dysplasia K22.70 ; Sciatic nerve pain, left M54.32 and Localized swelling, mass and lump, head R22.0 [place] [address] 24741- 2002 May, [facility] [address] [place] [id number] [place] [address] 30962- 8810 May, 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 and History of sciatica Z86.69 [place] [address] 75235- 1414 Mar, Calculus of left kidney N20.0 ; Hyperlipidemia E78.5 ; Degeneration disease of medial meniscus, 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 ; Right knee pain M25.561 ; Sciatica M54.30 ; GERD (gastroesophageal reflux disease) K21.9 and 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 [place] [address] [place] [id number] [place] [address] 20305- 2893 Mar, [place] [address] 53928- 4095 Mar, [place] [address] 74938- 8256 Mar, [place] [address] 63898- 5810 Mar, Plantar fasciitis M72.2 [place] [address] 54080- 2199 Mar, Degeneration disease of medial meniscus, 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 ; Right knee pain M25.561 ; Sciatica M54.30 ; GERD ( gastroesophageal reflux disease) K21.9 and 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 [facility] [address] 13586- 0119 Feb, [facility] [address] 83725- 9680 Feb, Osteopenia M85.80 [facility] [address] [place] [address] 85183- 4859 Feb, Screening for malignant neoplasm of breast Z12.39 and Encounter for screening mammogram for malignant neoplasm of breast Z12.[address] 75391- 0384 Feb, Hip pain M25.[address] 94774- 9848 Feb, [address] 63714- 4390 Feb, Arthralgia of right hip M25.551 ; Sciatica M54.30 ; GERD ( gastroesophageal reflux disease) K21.9 ; 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 ; CAD ( coronary artery disease) I25.10 and Hyperlipidemia 272.4 [facility] [address] 22014 -5623 Jan, Pharyngitis J02.9 ; Body aches R52 ; Cough R05 and Sinusitis J32.[address] 33412- 6492 Nov, Contusion of foot 924.20 and Plantar fasciitis 728.71 [facility] [address] [id number] Oct, Dental examination V72.[address] 33388- 4373 Oct, [facility] [address] 61251- 7976 Oct, Coronary artery disease 414.00 [facility] [address] [place] [id number] [place] [address] 26693- 0654 Oct, Zoster 053.9 [facility] [address] [place] [id number] [place] [address] 89886- 7203 Sep, Pain in joint, ankle and foot 719.47 ; 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.85 ; Cervicalgia 723.1 ; Pain in joint, shoulder region 719.41 ; Coronary artery disease 414.00 and Need for shingles vaccine V04.89 [facility] [address] [place] [id number] [place] [address] [id number] Sep, Dental examination V72.2 [facility] [address] [place] [id number] [place] [address] 93657- 9686 Sep, [facility] [address] [place] [id number] [place] [address] 11852- 1717 Aug, [facility] [address] [place] [id number] [place] [address] [id number] July, Dental examination V72.2 [facility] [address] [place] [id number] [place] [address] 34276- 0380 July, Cough 786.2 [facility] [address] [place] [id number] [place] [address] 97934- 9707 July, Sinusitis 473.9 and Means esophagus 530.85 [facility] [address] [place] [id number] [place] [address] 29147- 7706 Jun, [facility] [address] [place] [id number] [place] [address] 33066- 9732 Jun, [facility] [address] [place] [id number] [place] [address] 58503- 3896 May, [facility] [address] [place] [id number] [place] [address] 890762- 5399 May, [facility] [address] 49522- 7333 May, [facility] [place] [facility] [address] [id number] [place] [address]- 6634 May, [facility] [place] [facility] [address] [id number] [place] [address]- 5409 May, [facility] [place] [facility] [address] [id number] [place] [address]- 3317 May, [facility] [place] [facility] [address] [id number] [place] [address]- 8365 May, [facility] [place] [facility] [address] [id number] [place] [address]- 5490 May, [facility] [place] [facility] [address] [id number] [place] [address]- 5431 Apr, [facility] [place] [facility] [address] [facility] [id number] [place] [address]- 9110 Apr, [facility] [place] [facility] [address] [id number] [place] [address]- 7620 Apr, [facility] [place] [facility] [address] [id number] [place] [address]- 9171 Mar, [facility] [place] [facility] [address] [facility] [id number] [place] [address]- 4785 Mar, [facility] [place] [facility] [address] [id number] [place] [address]- 9111 Mar, [facility] [place] [facility] [address] [id number] [place] [address]- 9710 Mar, [facility] [place] [facility] [address] [id number] [place] [address]- 4930 Feb, [facility] [place] [facility] [address] [id number] [place] [address]- 5187 Feb, [facility] [place] [facility] [address] [facility] [id number] [place] [address]- 6119 Feb, [facility] [place] [facility] [address] [id number] [place] [address]- 6236 Feb, [facility] [place] [facility] [address] [id number] [place] [address]- 5749 Feb, [facility] [place] [facility] [address] [id number] [place] 9835 Feb, [facility] [place] [facility] [address] [id number] [place] [address]- 1489 Feb, [facility] [place] [facility] [address] [id number] [place] [address]- 3362 Jan, [facility] [place] [facility] [address] [id number] [place] [address]- 9375 Jan, [facility] [place] [facility] [address] [id number] [place] [address]- 4756 Jan, [facility] [place] [facility] [address] [id number] [place] [address]- 3044 Jan, [facility] [place] [facility] [address] [id number] [place] [address]- 1313 Dec, [facility] [place] [facility] [address] [id number] [place] [address]- 0554 Dec, [facility] [place] [facility] [address] [id number] [place] [address]- 1274 Dec, [facility] [place] [facility] [address] [id number] [place] [address]- 5705 Dec, [facility] [place] [facility] [address] [id number] [place] [address]- 2120 Dec, [facility] [place] [facility] [address] [id number] [place] 2116 Dec, [facility] [place] [facility] [address] [id number] [place] [address]- 1936 24 Nov, 2013 [facility] [place] [facility] [address] [id number] [place] [address]- 1156 Nov, [facility] [place] [facility] [address] [id number] [place] [address]- 1103 Nov, [facility] [place] [facility] [address] [id number] [place] [address]- 3332 Nov, [facility] [place] [facility] [address] [id number] [place] [address]- 7687 Nov, [facility] [place] [facility] [address] [id number] [place] [address]- 9496 Nov, [facility] [place] [facility] [address] [id number] [place] [address]- 2333 Nov, [facility] [place] [facility] [address] [id number] [place] [address]- 9716 Oct, [facility] [place] [facility] [address] [id number] [place] [address]- 2451 Oct, [facility] [place] [facility] [address] [id number] [place] [address]- 7130 Oct, [facility] [place] [facility] [address] [id number] [place] [address]- 0217 Oct, [facility] [place] [facility] [address] [id number] [place] [address]- 8082 Oct, [facility] [place] [facility] [address] [id number] [place] [address]- 5397 Oct, [facility] [place] [facility] [address] [id number] [place] [address]- 5615 Oct, [facility] [place] [facility] [address] [id number] [place] [address]- 7866 Oct, [facility] [place] [facility] [address] [id number] [place] [address]- 3956 Oct, [facility] [place] [facility] [address] [id number] [place] [address]- 2240 Sep, [facility] [place] [facility] [address] [id number] [place] [address]- 6034 14 Sep, 2013 [facility] [place] [facility] [address] [id number] [place] [address]- 3148 Sep, 2013 [facility] [place] [facility] [address] [id number] [place] [address]- 4069 Sep, 2013 [facility] [place] [facility] [address] [id number] [place] [address]- 8502 08 Sep, 2013 [facility] [place] [facility] [address] [id number] [place] [address]- 7875 Sep, 2013 [facility] [place] [facility] [address] [id number] [place] [address]- 9530 Sep, [facility] [place] [facility] [address] [id number] [place] [address]- 4409 Sep, [facility] [place] [facility] [address] [id number] [place] [address]- 4969 Sep, [facility] [place] [facility] [address] [id number] [place] [address]- 5890 Aug, [facility] [place] [facility] [address] [id number] [place] [address]- 4010 Aug, [facility] [place] [facility] [address] [id number] [place] [address]- 0498 Jun, [facility] [place] [facility] [address] [id number] [place] [address]- 1038 Jun, [facility] [place] [facility] [address] [id number] [place] [address]- 6157 May, [facility] [place] [facility] [address] [id number] [place] [address]- 5321 May, [facility] [place] [facility] [address] [id number] [place] [address]- 0396 Apr, [facility] [place] [facility] [address] [id number] [place] 9710 Apr, [facility] [place] [facility] [address] [id number] [place] [address]- 4166 Apr, [facility] [place] [facility] [address] [id number] [place] [address]- 7248 Apr, [facility] [place] [facility] [address] [id number] [place] [address]- 8326 Feb, [facility] [place] [facility] [address] [id number] [place] [address]- 2744 Feb, [facility] [address] [id number] [place] [address]- 3746 Jan, [facility] [place] [facility] [address] [id number] [place] [address]- 7066 Jan, [facility] [place] [facility] [address] [id number] [place] [address]- 9577 Nov, [facility] [address] [id number] [place] [address]- 1336 Sep, [facility] [place] [facility] [address] [id number] [place] [address]- 1060 Sep, [facility] [place] [facility] [address] [id number] [place] [address]- 4004 Aug, [facility] [place] [facility] [address] [id number] [place] [address]- 9969 Aug, [facility] [place] [facility] [address] [id number] [address]- 5974 Aug, [facility] [place] [facility] [address] [id number] [place] [address]- 2327 July, [facility] [place] [facility] [address] [id number] [place] [address]- 1836 July, [facility] [place] [facility] [address] [id number] [address]- 4515 July, [facility] [place] [facility] [address] [id number] [address]- 6902 May, [facility] [place] [facility] [address] [id number] [place] [address]- 9286 May, [facility] [place] [facility] [address] [id number] [place] [address] Jan, [facility] [place] [facility] [address] [id number] [place] [address] Jan, [facility] [place] [facility] [address] [id number] [place] [address] Jan, [facility] [place] [facility] [address] [id number] [place] [address] Jan, [facility] [place] [facility] [address] [id number] [place] [address] Jan, [facility] [place] [facility] [address] [id number] [place] [address] Jan, [facility] [place] [facility] [address] [id number] [place] [address] Jan, [facility] [place] [facility] [address] [id number] [place] [address] Jan, [facility] [place] [facility] [address] [facility] [id number] [place] [address] Dec, [facility] [place] [facility] [address] [id number] [place] [address] Dec, [facility] [place] [facility] [address] [id number] [place] [address] Aug, [facility] [place] [facility] [address] [id number] [place] [address] July, [facility] [place] [facility] [address] [id number] [place] [address] Jun, [facility] [place] [facility] [address] [id number] [place] [address] May, [facility] [place] [facility] [address] [facility] [id number] [place] [address] 13 May, 2011 [facility] [address] [facility] [id number] [address] May, [facility] [address] [facility] [id number] [place] [address] Jun, IMMUNIZATIONS No Known Immunizations SOCIAL HISTORY Never Assessed REASON FOR VISIT UTI, itching and burning-TIFFANI Ang, not feeling the best and has no appetite PLAN OF CARE Activity Details Follow Up 3 Months, prn Reason:routine f/u VITAL SIGNS Height 68 in 2017-08-23 Weight 206.5 lbs 2017-08-23 Temperature 97.9 degrees Fahrenheit 2017-08-23 Heart Rate 80 bpm 2017-08-23 Respiratory Rate 20 2017-08-23 BMI 31.39 kg/m2 2017-08-23 Blood pressure systolic 120 mmHg 2017-08-23 Blood pressure diastolic 64 mmHg 2017-08-23 MEDICATIONS Medication Instructions Dosage Frequency Start Date End Date Duration Status B Complex Orally Once a day 24h Not-Taking Pravastatin Sodium 20 MG TAKE ONE TABLET BY MOUTH ONCE DAILY 90 Active Calcium Magnesium Not-Taking Carafate 1 GM TAKE ONE TABLET BY MOUTH FOUR TIMES DAILY 30 Active Cyclobenzaprine HCl 10 mg 1 tablet Active Eliquis 5 mg Orally 2 times a day 1 tablet 12h July, 30 days Active Cetirizine HCl Not-Taking Nitrostat 0.4 MG DISSOLVE ONE TABLET SUBLINGUALLY NEEDED FOR CHEST PAIN ; MAY REPEAT TWO TIMES EVERY 5 MINUTES THEN GO TO ER Active Lyrica 50 mg Orally Once a day 1 capsule 24h 24 Mar, 2016 21 days Not- Taking Glucocard Expression Test 1 subcutaneously 2 times a day test 2 times per day 12h July, 90 days Active Cough Syrup Not-Taking Vitamin D3 Ultra Strength 5000 UNIT Orally twice a day 1 capsule 12h Not-Taking Centrum Silver 50+Women - Not-Taking [place] 3-6-9 Not-Taking Pantoprazole Sodium 40 MG TAKE ONE TABLET BY MOUTH ONCE DAILY 30 Active Macrobid 100 mg Orally every 12 hrs 1 capsule with food 12h Aug, Aug, 7 day(s) Active Percocet 5-325 MG Orally 2 times a day as needed 1 tablet as needed Jan, 28 days Not-Taking Cinnamon Orally 2 times a day 12h Not-Taking Triamcinolone Acetonide 0.1 % Externally Twice a day prn apply thin layer to hands Jun, 10 days Not-Taking Metformin HCl 500 MG TAKE ONE TABLET BY MOUTH ONCE DAILY WITH EVENING MEAL 90 Active HydrOXYzine HCl 25 MG TAKE ONE TABLET BY MOUTH EVERY 8 HOURS NEEDED 30 Active Melatonin 5 MG Orally Once a day 1 tablet at bedtime as needed with food 24h Not-Taking RESULTS No Results PROCEDURES Procedure Date Ordered Result Body Site URINALYSIS, AUTO, W/O SCOPE August 23, 2017 LAB NOT BILLED BY [employer] August 23, 2017 [facility] VISIT ESTABLISHED PATIENT August 23, 2017 INSTRUCTIONS MEDICATIONS ADMINISTERED No Known Medications [...]
--- OUTSIDE RECORDS SUMMARY | 2018-02-18 08:29 | XMS REPORT ---
Author Author JANES PECK Organization [facility] Address [address] [place] [address] Care Team Providers Care Hand Blocker Name Role Phone JANES PECK Unavailable PROBLEMS Type Condition ICD9-CM Code TAL51-QW Code Onset Dates Condition Status SNOMED Code Problem Angina pectoris I20.9 Active 843451235 Problem Dyshidrotic eczema L30.1 Active 405736238 Problem Polyneuropathy G62.9 Active 97319895 Problem Diverticulitis K57.92 Active 685072640 Problem Other obesity due to excess calories E66.09 Active 611341777 Problem Body mass index (BMI) of 30.0-30.9 in adult Z68.30 Active 815814674 Problem Type 2 diabetes mellitus with diabetic neuropathic arthropathy, 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 Active 235849175 Problem Anxiety F41.9 Active 95734839 Problem Type 2 diabetes mellitus without complication, without long-term current use of insulin E11.9 Active 390790208 Problem GERD (gastroesophageal reflux disease) K21.9 Active 489059494 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 870353563 Problem CAD (coronary artery disease) I25.10 Active 83963652 Problem Trochanteric bursitis of right hip M70.61 Active 210529277087529 Problem Syndrome X, 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 Active 427590631 Problem Seborrheic keratoses L82.1 Active 595201214 Problem Hyperlipidemia E78.5 Active 68834610 Problem Sciatica of right side M54.31 Active 37737168 Problem Vaginal cancer C52 Active 931055326 ALLERGIES No Information ENCOUNTERS Encounter Location Date Diagnosis [facility] [address] [facility] [id number], [place] [address] Jan, [facility] [address] [facility] [id number], [place] [address] Oct, Onychomycosis B35.1 ; Onychocryptosis L60.0 and Type 2 diabetes mellitus without complication, without long-term current use of insulin E11.9 [place] [id number] [place] [address] 63109- 8408 Sep, Diverticulitis K57.92 [place] [address] 8[address]86- 3423 Sep, Diverticulitis K57.92 [place] [address] 00569- 7676 Sep, [facility] [address] 57656 -[address]681 Sep, Diarrhea, unspecified type R19.7 [place] [address] 39804- 7257 Sep, [place] [address] 63073- 2062 Sep, Pain in right hip M25.551 [place] [address] 18429- 2439 Sep, [place] [address] 30438- 0451 Aug, Acute cystitis with hematuria N30.01 [place] [address] 57835- 7599 Aug, Type 2 diabetes mellitus without complication, [...] Angina pectoris I20.9 and Vaginal cancer C52 [facility] [id number] [place] [address] 90385- 9994 Aug, [facility] [address] 51682- 1572 Aug, [facility] [id number] [place] [address] 87543- 1922 Aug, Vaginal candidiasis B37.3 and Vaginal itching L29.8 [facility] [address] 31720- 5053 Aug, Dysuria R30.0 and Acute cystitis with hematuria N30.01 [facility] [address] 27309- 5058 July, [facility] [address] 45792- 5080 July, [facility] [address] 35338- 0903 July, [facility] [id number] [place] [address] 42381- 2343 Jun, [facility] [id number] [place] [address] 10483- 5829 Jun, [facility] [id number] [place] [address] 75999 -9858 Jun, Right anterior knee pain M25.561 [facility] [id number] [place] [address] 15634- 6263 Jun, [facility] [id number] [place] [address] 56563- 6342 Jun, Type 2 diabetes mellitus with diabetic neuropathic arthropathy, 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 [facility] [id number] [place] [address] 39263- 8428 May, Acute non-recurrent maxillary sinusitis J01.00 and Acute suppurative otitis media of left ear without spontaneous rupture of tympanic membrane, recurrence not specified H66.002 [facility] [id number] [place] [address] 34562 -7279 10 May, 2017 Viral upper respiratory tract infection J06.9 [place] [address] 63677- 0758 Apr, [place] [address] 47911- 6085 Apr, Type 2 diabetes mellitus with diabetic [...] index (BMI) of 32.0-32.9 in adult Z68.32 [place] [address] 77979- 1402 09 Apr, 2017 Type 2 diabetes mellitus without complication, without long- term current use of insulin E11.9 [place] [id number] [place] [address] 00970- 9100 02 Apr, 2017 Papule R23.8 and Actinic keratosis L57.0 [facility] [address] 65922 -5527 11 Mar, 2017 Cough R05 ; Encounter for immunization Z23 ; Other viral agents as the cause of diseases classified elsewhere B97.89 and Acute upper respiratory infection, unspecified J06.9 [place] [address] 57467- 4227 14 Jan, 2017 Migraine without status migrainosus, not intractable, unspecified migraine type G43.909 [place] [address] 14760- 5484 Sep, [place] [id number] [place] [address] 33293- 0385 Sep, Type 2 diabetes mellitus without complication, without long- term current use of insulin E11.9 ; Dehydration, mild E86.0 and Dyshidrotic eczema L30.1 [place] [id number] [place] [address] 99395- 2655 Sep, [place] [id number] [place] [address] 84693- 8904 Aug, Migraine without status migrainosus, not intractable, unspecified migraine type G43.[address] 18596- 9787 July, [place] [id number] [place] [address] 01485- 4442 Jun, Medicare annual wellness visit, subsequent Z00.00 ; Hyperlipidemia E78.5 ; CAD (coronary artery disease) I25.10 and Vaginal cancer C52 [place] [id number] [place] [address] 73736- 0181 Jun, Sciatica M54.30 ; Pain in right hip M25.551 ; Dyshidrotic eczema L30.1 ; Candidiasis of breast B37.89 ; Right anterior knee pain M25.561 ; Hyperlipidemia E78.5 and Encounter for immunization Z23 [place] [address] [id number] [place] [address] 58473- 2478 May, Ganglion cyst of joint of finger of left hand M67.442 [place] [address] [place] [id number] [place] [address] 35171- 0900 May, Migraine without status migrainosus, not intractable, unspecified migraine type G43.909 [place] [id number] [place] [address] 25804- 8465 May, [place] [address] [id number] [place] [address] 72263- 2509 09 Apr, 2016 Skin lesion of back L98.9 and Encounter for immunization Z23 [place] [id number] [place] [address] 83917- 1528 Mar, Candidal dermatitis B37.2 ; Seborrheic keratoses L82.1 ; Polyneuropathy G62.9 and Dysuria R30.0 [facility] [address] [id number] [place] [address] [id number] Mar, Dental examination Z01.20 [place] [address] 74424- 3436 Mar, Neuritis M79.2 [place] [address] 86384- 8604 30 Feb, 2016 Drug allergy Z88.9 [place] [id number] [place] [address] 03712- 4802 Feb, Dysuria R30.0 [place] [address] 08842- 5411 Feb, Acute cystitis with hematuria N30.01 [place] [address] 10517- 3384 Feb, Dysuria R30.0 and Acute cystitis with hematuria N30.01 [place] [id number] [place] [address] 72376- 8155 Feb, Angina pectoris I20.9 ; Finger pain, left M79.645 ; 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 ; GERD (gastroesophageal reflux disease) K21.9 ; Pain in right hip M25.551 ; Pain in left hip M25.552 and Encounter for screening mammogram for breast cancer Z12.31 [place] [id number] [place] [address] 50240- 4842 Dec, Right hip pain M25.551 [place] [id number] [place] [address] 67729- 4206 Nov, GERD (gastroesophageal reflux disease) K21.9 ; Vaginal cancer C52 ; Pain in right hip M25.551 and Pain in left hip M25.552 [place] [address] 16324- 7793 Oct, Squamous cell carcinoma C80.[address] 10393- 7317 Oct, Skin lesions L98.9 and Encounter for well woman exam Z01.419 [place] [address] 24043- 4847 Oct, [address] 72352- 2294 Sep, [facility] [address] 70588 -0508 Aug, Atopic dermatitis, unspecified type L20.9 and Tick bite, initial encounter W57.XXXA [facility] [address] 89609 -2942 Aug, [address] 36381- 1466 July, Pre-procedural laboratory examination Z01.812 [place] [address] [id number] [place] [address] 26654- 3944 July, Migraine without status migrainosus, not intractable, unspecified migraine type G43.909 ; Barretts esophagus without dysplasia K22.70 ; Sciatic nerve pain, left M54.32 and Localized swelling, mass and lump, head R22.[address] 51503- 1445 May, [address] 18058- 7093 May, [facility] [address] 26959 -3288 May, Unspecified fall, initial encounter W19.XXXA ; Unspecified place in unspecified non-institutional (private) residence as the place of occurrence of the external cause Y92.009 ; Mid back pain M54.9 ; Rib pain on right side R07.81 ; Buttock pain M79.1 and Post-traumatic headache, unspecified , not intractable G44.309 [place] [address] 18405- 8115 Apr, Hypercholesteremia E78.0 ; Chest discomfort R07.89 ; 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 and History of sciatica Z86.69 [place] [address] 96609- 1147 Mar, Calculus of left kidney N20.0 ; Hyperlipidemia E78.5 ; Degeneration disease of medial meniscus, 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 ; Right knee pain M25.561 ; Sciatica M54.30 ; GERD (gastroesophageal reflux disease) K21.9 and 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 [place] [address] 06524- 4544 Mar, [place] [address] 87801- 5954 Mar, [place] [address] 44532- 5176 Mar, [place] [address] 17157- 1840 Mar, Plantar fasciitis M72.2 [place] [address] 56379- 5075 Mar, Degeneration disease of medial meniscus, 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 ; Right knee pain M25.561 ; Sciatica M54.30 ; GERD ( gastroesophageal reflux disease) K21.9 and 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 [place] [address] 46764- 2697 Feb, [place] [address] 58354- 5921 16 Feb, 2015 Osteopenia M85.80 [facility] [address] 96751- 6727 15 Feb, 2015 Screening for malignant neoplasm of breast Z12.39 and Encounter for screening mammogram for malignant neoplasm of breast Z12.31 [place] [address] 30807- 3525 Feb, Hip pain M25.559 [place] [address] 10541- 6608 Feb, [address] 99796- 8587 Feb, Arthralgia of right hip M25.551 ; Sciatica M54.30 ; GERD ( gastroesophageal reflux disease) K21.9 ; 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 ; CAD ( coronary artery disease) I25.10 and Hyperlipidemia 272.4 [facility] [address] 48085 -6058 Jan, Pharyngitis J02.9 ; Body aches R52 ; Cough R05 and Sinusitis J32.[address] 19940- 3559 Nov, Contusion of foot 924.20 and Plantar fasciitis 728.71 [facility] [address] [id number] Oct, Dental examination V72.2 [place] [address] 83353- 0916 Oct, [place] [address] 97587- 6628 Oct, Coronary artery disease 414.00 [place] [address] 27772- 7824 Oct, Zoster 053.9 [place] [address] 94988- 5627 Sep, Pain in joint, ankle and foot 719.47 ; 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.85 ; Cervicalgia 723.1 ; Pain in joint, shoulder region 719.41 ; Coronary artery disease 414.00 and Need for shingles vaccine V04.89 [facility] [address] [id number] Sep, Dental examination V72.2 [facility] [id number] [place] [address] 09123- 2546 Sep, [facility] [id number] [place] [address] 20435- 6316 Aug, [facility] [id number] [place] [address] [id number] July, Dental examination V72.2 [facility] [id number] [place] [address] 43981- 0096 July, Cough 786.2 [facility] [id number] [place] [address] 95285- 4776 July, Sinusitis 473.9 and Means esophagus 530.85 [facility] [id number] [place] [address] 68687- 8126 Jun, [facility] [id number] [place] [address] 79921- 9976 Jun, [facility] [id number] [place] [address] 44208- 1916 May, [facility] [id number] [place] [address] 43259- 3956 May, [facility] [id number] [place] [address] 10143- 0646 May, [facility] [id number] [place] [address] 94128- 8226 May, [facility] [id number] [place] [address] 677017- 4980 May, [facility] [place] [facility] [address] [id number] [place] [address]- 3377 May, [facility] [place] [facility] [address] [id number] [place] [address]- 1657 May, [facility] [place] [facility] [address] [id number] [place] [address]- 6981 May, [facility] [place] [facility] [address] [id number] [place] [address]- 6391 Apr, [facility] [place] [facility] [address] [id number] [place] [address]- 2889 Apr, [facility] [place] [facility] [address] [id number] [place] [address]- 5250 Apr, [facility] [place] [facility] [address] [id number] [place] [address]- 1249 Mar, [facility] [place] [facility] [address] [id number] [place] [address]- 4784 Mar, [facility] [place] [facility] [address] [id number] [place] [address]- 6159 Mar, [facility] [place] [facility] [address] [id number] [place] [address]- 2104 Mar, [facility] [place] [facility] [address] [id number] [place] [address]- 3801 Feb, [facility] [place] [facility] [address] [id number], [place] [address]- 8096 Feb, [facility] [place] [facility] [address] [id number] [place] [address]- 5870 Feb, [facility] [place] [facility] [address] [id number] [place] [address]- 0814 Feb, [facility] [place] [facility] [address] [id number] [place] [address]- 4385 Feb, [facility] [place] [facility] [address] [id number] [place] [address]- 7112 Feb, [facility] [place] [facility] [address] [id number] [place] [address]- 3158 Feb, [facility] [place] [facility] [address] [id number] [place] [address]- 3315 Jan, [facility] [place] [facility] [address] [id number] [place] [address]- 0072 Jan, [facility] [place] [facility] [address] [id number] [place] [address]- 3636 Jan, [facility] [place] [facility] [address] [id number] [place] [address]- 0217 Jan, [facility] [place] [facility] [address] [id number] [place] [address]- 5628 Dec, [facility] [place] [facility] [address] [id number] [place] [address]- 8542 Dec, [facility] [place] [facility] [address] [id number] [place] [address]- 9894 Dec, [facility] [place] [facility] [address] [id number] [place] [address]- 6373 Dec, [facility] [place] [facility] [address] [id number] [place] [address]- 5954 Dec, [facility] [place] [facility] [address] [id number] [place] [address]- 7584 16 Dec, 2013 [facility] [place] [facility] [address] [id number] [place] [address]- 7375 24 Nov, 2013 [facility] [place] [facility] [address] [id number] [place] [address]- 8467 23 Nov, 2013 [facility] [place] [facility] [address] [id number] [place] [address]- 4395 23 Nov, 2013 [facility] [place] [facility] [address] [id number] [place] [address]- 1252 17 Nov, 2013 [facility] [place] [facility] [address] [id number] [place] [address]- 0082 Nov, [facility] [place] [facility] [address] [id number] [place] [address]- 0687 Nov, [facility] [place] [facility] [address] [id number] [place] [address]- 9142 Nov, [facility] [place] [facility] [address] [id number] [place] [address]- 1158 Oct, [facility] [place] [facility] [address] [id number] [place] [address]- 1580 Oct, [facility] [place] [facility] [address] [id number] [place] [address]- 7159 Oct, [facility] [place] [facility] [address] [id number] [place] [address]- 9405 Oct, [facility] [place] [facility] [address] [id number] [place] [address]- 6380 Oct, [facility] [place] [facility] [address] [id number] [place] [address]- 3067 Oct, [facility] [place] [facility] [address] [id number] [place] [address]- 8139 Oct, [facility] [place] [facility] [address] [id number] [place] [address]- 6960 Oct, [facility] [place] [facility] [address] [id number] [place] [address]- 3557 Oct, [facility] [place] [facility] [address] [id number] [place] [address]- 5628 Sep, [facility] [place] [facility] [address] [id number] [place] [address]- 2232 Sep, [facility] [place] [facility] [address] [id number] [place] [address]- 1482 Sep, [facility] [place] [facility] [address] [id number] [place] [address]- 4546 Sep, [facility] [place] [facility] [address] [id number] [place] [address]- 3284 Sep, [facility] [place] [facility] [address] [id number] [place] [address]- 0755 Sep, [facility] [place] [facility] [address] [id number] [place] [address]- 7571 Sep, [facility] [place] [facility] [address] [id number] [place] [address]- 3910 Sep, [facility] [place] [facility] [address] [id number] [place] [address]- 0783 Sep, [facility] [place] [facility] [address] [id number] [place] [address]- 5670 Aug, [facility] [place] [facility] [address] [id number] [place] [address]- 7226 Aug, [facility] [place] [facility] [address] [id number] [place] [address]- 0419 Jun, [facility] [place] [facility] [address] [id number] [place] [address]- 4969 Jun, [facility] [place] [facility] [address] [id number] [place] [address]- 2122 May, [facility] [place] [facility] [address] [id number] [place] [address]- 7483 May, [facility] [place] [facility] [address] [id number] [place] [address]- 4085 Apr, [facility] [place] [facility] [address] [id number] [place] 5101 Apr, [facility] [place] [facility] [address] [id number] [place] [address]- 8319 Apr, [facility] [place] [facility] [address] [id number] [place] [address]- 5392 Apr, [facility] [place] [facility] [address] [id number] [place] [address]- 2546 Feb, [facility] [address] [id number] [place] [address]- 2156 Feb, [facility] [place] [facility] [address] [id number] [place] [address]- 2546 Jan, [facility] [place] [facility] [address] [id number] [place] [address]- 2546 Jan, [facility] [place] [facility] [address] [id number] [place] [address]- 2546 Nov, [facility] [place] [facility] [address] [id number] [place] [address]- 2546 Sep, [facility] [place] [facility] [address] [id number] [place] [address]- 2546 Sep, [facility] [place] [facility] [address] [id number] [place] [address] Aug, [facility] [place] [facility] [address] [id number] [place] [address] Aug, [facility] [place] [facility] [address] [id number] [place] [address] Aug, [facility] [place] [facility] [address] [id number] [place] [address] July, [facility] [place] [facility] [address] [id number] [place] [address] July, [facility] [place] [facility] [address] [id number] [place] [address] July, [facility] [place] [facility] [address] [id number] [place] [address] May, [facility] [place] [facility] [address] [id number] [place] [address] May, [facility] [place] [facility] [address] [id number] [place] [address] Jan, [facility] [place] [facility] [address] [id number] [place] [address] Jan, [facility] [place] [facility] [address] [id number] [place] [address] Jan, [facility] [place] [facility] [address] [id number] [place] [address] Jan, [facility] [place] [facility] [address] [id number] [place] [address] Jan, [facility] [place] [facility] [address] [id number] [place] [address] Jan, [facility] [place] [facility] [address] [id number] [place] [address] Jan, [facility] [place] [facility] [address] [id number] [place] [address] Jan, [facility] [place] [facility] [address] [id number] [place] [address] Dec, [facility] [place] [facility] [address] [id number] [place] [address] Dec, [facility] [place] [facility] [address] [id number] [place] [address] Aug, [facility] [place] [facility] [address] [id number], [place] [address] July, [facility] [place] [facility] [address] [id number], [place] [address] Jun, [facility] [place] [facility] [address] [id number] [place] [address] May, [facility] [place] [facility] [address] [id number], [place] [address] May, [facility] [place] [facility] [address] [id number] [place] [address] May, [facility] [place] [facility] [address] [facility] [id number] [place] [address] Jun, IMMUNIZATIONS No Known Immunizations SOCIAL HISTORY Never Assessed REASON FOR VISIT PALS for Eliquis PLAN OF CARE VITAL SIGNS MEDICATIONS Medication Instructions Dosage Frequency Start Date End Date Duration Status Eliquis 5 mg Orally 2 times a day 1 tablet 12h 17 Jul, 2017 90 days Active RESULTS No Results PROCEDURES No [...]
--- OUTSIDE RECORDS SUMMARY | 2018-02-18 08:29 | XMS REPORT ---
Author Author JANES PECK Organization [facility] Address [address] [place] [address] Care Team Providers Care Software Quality Test Engineer Name Role Phone JANES PECK Unavailable PROBLEMS Type Condition ICD9-CM Code QNI32-FV Code Onset Dates Condition Status SNOMED Code Problem Angina pectoris I20.9 Active 665891032 Problem Dyshidrotic eczema L30.1 Active 355350021 Problem Polyneuropathy G62.9 Active 94670295 Problem Diverticulitis K57.92 Active 917408084 Problem Other obesity due to excess calories E66.09 Active 149016180 Problem Body mass index (BMI) of 30.0-30.9 in adult Z68.30 Active 017496909 Problem Type 2 diabetes mellitus with diabetic neuropathic arthropathy, 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 Active 501109950 Problem Anxiety F41.9 Active 26432603 Problem Type 2 diabetes mellitus without complication, without long-term current use of insulin E11.9 Active 664627029 Problem GERD (gastroesophageal reflux disease) K21.9 Active 327341560 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 403651182 Problem CAD (coronary artery disease) I25.10 Active 70966313 Problem Trochanteric bursitis of right hip M70.61 Active 275304432805918 Problem Syndrome X, 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 Active 378378891 Problem Seborrheic keratoses L82.1 Active 259946808 Problem Hyperlipidemia E78.5 Active 87330745 Problem Sciatica of right side M54.31 Active 17878873 Problem Vaginal cancer C52 Active 731777846 ALLERGIES No Information ENCOUNTERS Encounter Location Date Diagnosis [facility] [address] [facility] [id number], [place] [address] Jan, [facility] [address] [facility] [id number], [place] [address] Oct, Onychomycosis B35.1 ; Onychocryptosis L60.0 and Type 2 diabetes mellitus without complication, without long-term current use of insulin E11.9 [place] [address] [place] [id number] [place] [address] 96114- 8678 Sep, Diverticulitis K57.92 [place] [address] 97882- 9583 Sep, Diverticulitis K57.92 [place] [address] 8[address]05- 5290 Sep, [facility] [address] [address] Sep, Diarrhea, unspecified type R19.7 [place] [address] 74092- 2180 Sep, [place] [address] 02621- 3438 Sep, Pain in right hip M25.551 [place] [address] 37035- 2827 Sep, [place] [address] 28490- 0318 Aug, Acute cystitis with hematuria N30.01 [place] [address] 67806- 8457 Aug, Type 2 diabetes mellitus without complication, [...] Angina pectoris I20.9 and Vaginal cancer C52 [facility] [address] [place] [address] [id number] [place] [address] 24385- 7640 Aug, [facility] [address] 67455- 2056 Aug, [facility] [address] [address] [id number] [place] [address] 50299- 4046 Aug, Vaginal candidiasis B37.3 and Vaginal itching L29.8 [facility] [address] 51448- 8480 Aug, Dysuria R30.0 and Acute cystitis with hematuria N30.01 [facility] [address] 42787- 8499 July, [facility] [address] 6[address]- 1938 July, [facility] [address] 23204- 7247 July, [facility] [id number] [place] [address] 43413- 5492 Jun, [facility] [address] [address] [id number] [place] [address] 37640- 2578 Jun, [facility]ALK IN [facility] [id number] [place] [address] 83321 -2056 Jun, Right anterior knee pain M25.561 [facility] [id number] [place] [address] 18889- 9764 Jun, [facility] [id number] [place] [address] 35636- 2412 Jun, Type 2 diabetes mellitus with diabetic neuropathic arthropathy, 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 [facility] [id number] [place] [address] 27774- 8321 May, Acute non-recurrent maxillary sinusitis J01.00 and Acute suppurative otitis media of left ear without spontaneous rupture of tympanic membrane, recurrence not specified H66.002 [facility] IN [facility] [id number] [place] [address] 97487 -3135 10 May, 2017 Viral upper respiratory tract infection J06.9 [place] [address] 56123- 1006 Apr, [place] [address] 48590- 3427 Apr, Type 2 diabetes mellitus with diabetic [...] index (BMI) of 32.0-32.9 in adult Z68.32 [place] [address] 56764- 4574 09 Apr, 2017 Type 2 diabetes mellitus without complication, without long- term current use of insulin E11.9 [place] [address] [address] [id number] [place] [address] 19457- 9156 02 Apr, 2017 Papule R23.8 and Actinic keratosis L57.0 [facility] [address] 75919 -6884 11 Mar, 2017 Cough R05 ; Encounter for immunization Z23 ; Other viral agents as the cause of diseases classified elsewhere B97.89 and Acute upper respiratory infection, unspecified J06.9 [place] [address] 70392- 2426 14 Jan, 2017 Migraine without status migrainosus, not intractable, unspecified migraine type G43.909 [place] [address] 30091- 3319 Sep, [place] [address] [address] [id number] [place] [address] 56612- 8723 Sep, Type 2 diabetes mellitus without complication, without long- term current use of insulin E11.9 ; Dehydration, mild E86.0 and Dyshidrotic eczema L30.1 [place] [address] [address] [id number] [place] [address] 51638- 8646 Sep, [place] [address] [address] [id number] [place] [address] 27915- 3916 Aug, Migraine without status migrainosus, not intractable, unspecified migraine type G43.[address] 30141- 9206 July, [place] [address] [place] [address] [id number] [place] [address] 19475- 8097 Jun, Medicare annual wellness visit, subsequent Z00.00 ; Hyperlipidemia E78.5 ; CAD (coronary artery disease) I25.10 and Vaginal cancer C52 [place] [id number] [place] [address] 99049- 1819 Jun, Sciatica M54.30 ; Pain in right hip M25.551 ; Dyshidrotic eczema L30.1 ; Candidiasis of breast B37.89 ; Right anterior knee pain M25.561 ; Hyperlipidemia E78.5 and Encounter for immunization Z23 [place] [address] [address] [id number] [place] [address] 24729- 9855 May, Ganglion cyst of joint of finger of left hand M67.442 [place] [address] [address] [id number] [place] [address] 16398- 4767 May, Migraine without status migrainosus, not intractable, unspecified migraine type G43.909 [place] [id number] [place] [address] 21548- 3905 May, [place] [address] [address] [id number] [place] [address] 87157- 2349 09 Apr, 2016 Skin lesion of back L98.9 and Encounter for immunization Z23 [place] [address] [address] [id number] [place] [address] 16595- 1775 Mar, Candidal dermatitis B37.2 ; Seborrheic keratoses L82.1 ; Polyneuropathy G62.9 and Dysuria R30.0 [facility] [id number] [place] [address] [id number] Mar, Dental examination Z01.20 [place] [address] 38414- 1296 Mar, Neuritis M79.2 [place] [address] 85785- 4741 30 Feb, 2016 Drug allergy Z88.9 [place] [address] [address] [id number] [place] [address] 53305- 1719 Feb, Dysuria R30.0 [place] [address] 81803- 7552 Feb, Acute cystitis with hematuria N30.01 [place] [address] 56171- 9225 Feb, Dysuria R30.0 and Acute cystitis with hematuria N30.01 [place] [address] [address] [id number] [place] [address] 25010- 8261 Feb, Angina pectoris I20.9 ; Finger pain, left M79.645 ; 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 ; GERD (gastroesophageal reflux disease) K21.9 ; Pain in right hip M25.551 ; Pain in left hip M25.552 and Encounter for screening mammogram for breast cancer Z12.31 [place] [address] [address] [id number] [place] [address] 27106- 6179 Dec, Right hip pain M25.551 [place] [address] [place] [address] [id number] [place] [address] 12316- 5454 Nov, GERD (gastroesophageal reflux disease) K21.9 ; Vaginal cancer C52 ; Pain in right hip M25.551 and Pain in left hip M25.552 [place] [address] 99989- 2210 Oct, Squamous cell carcinoma C80.[address] 77479- 4656 Oct, Skin lesions L98.9 and Encounter for well woman exam Z01.419 [place] [address] 93288- 0665 Oct, [address] 90409- 0267 Sep, [facility] IN [address] 74[address] -6646 Aug, Atopic dermatitis, unspecified type L20.9 and Tick bite, initial encounter W57.XXXA [facility] [address] 79482 -9151 Aug, [address] 38913- 4842 July, Pre-procedural laboratory examination Z01.812 [place] [address] [place] [address] [id number] [place] [address] 49562- 4381 July, Migraine without status migrainosus, not intractable, unspecified migraine type G43.909 ; Barretts esophagus without dysplasia K22.70 ; Sciatic nerve pain, left M54.32 and Localized swelling, mass and lump, head R22.[address] 26198- 1488 May, [address] 03744- 9931 May, [facility] [address] 98400 -6745 May, Unspecified fall, initial encounter W19.XXXA ; Unspecified place in unspecified non-institutional (private) residence as the place of occurrence of the external cause Y92.009 ; Mid back pain M54.9 ; Rib pain on right side R07.81 ; Buttock pain M79.1 and Post-traumatic headache, unspecified , not intractable G44.309 [place] [address] 83583- 4372 Apr, Hypercholesteremia E78.0 ; Chest discomfort R07.89 ; 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 and History of sciatica Z86.69 [place] [address] 57912- 4563 Mar, Calculus of left kidney N20.0 ; Hyperlipidemia E78.5 ; Degeneration disease of medial meniscus, 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 ; Right knee pain M25.561 ; Sciatica M54.30 ; GERD (gastroesophageal reflux disease) K21.9 and 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 [place] [address] 07835- 7912 Mar, [place] [address] 53002- 9637 Mar, [place] [address] 67568- 0999 Mar, [place] [address] 09010- 6540 Mar, Plantar fasciitis M72.2 [place] [address] 50902- 1544 Mar, Degeneration disease of medial meniscus, 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 ; Right knee pain M25.561 ; Sciatica M54.30 ; GERD ( gastroesophageal reflux disease) K21.9 and 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 [place] [address] 86338- 2650 Feb, [place] [address] 35456- 3148 16 Feb, 2015 Osteopenia M85.80 [facility] [address] 91057- 5893 15 Feb, 2015 Screening for malignant neoplasm of breast Z12.39 and Encounter for screening mammogram for malignant neoplasm of breast Z12.31 [place] [address] 12016- 4222 Feb, Hip pain M25.559 [place] [address] 86669- 6009 Feb, [address] 98861- 3461 Feb, Arthralgia of right hip M25.551 ; Sciatica M54.30 ; GERD ( gastroesophageal reflux disease) K21.9 ; 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 ; CAD ( coronary artery disease) I25.10 and Hyperlipidemia 272.4 [facility] [address] 86847 -3626 Jan, Pharyngitis J02.9 ; Body aches R52 ; Cough R05 and Sinusitis J32.[address] 43572- 2853 Nov, Contusion of foot 924.20 and Plantar fasciitis 728.71 [facility] [address] [id number] Oct, Dental examination V72.2 [place] [address] 26561- 0135 Oct, [place] [address] 55727- 6524 Oct, Coronary artery disease 414.00 [place] [address] 28583- 1543 Oct, Zoster 053.9 [place] [address] 80565- 4066 Sep, Pain in joint, ankle and foot 719.47 ; 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.85 ; Cervicalgia 723.1 ; Pain in joint, shoulder region 719.41 ; Coronary artery disease 414.00 and Need for shingles vaccine V04.89 [facility] [address] [id number] Sep, Dental examination V72.2 [facility] [address] [address] [id number] [place] [address] 93961- 2546 Sep, [facility] [id number] [place] [address] 61014- 9286 Aug, [facility] [id number] [place] [address] [id number] July, Dental examination V72.2 [facility] [address] [address] [id number] [place] [address] 03209- 6256 July, Cough 786.2 [facility] [address] [id number] [place] [address] 59536- 8706 July, Sinusitis 473.9 and Means esophagus 530.85 [facility] [address] [id number] [place] [address] 47606- 7546 Jun, [facility] [id number] [place] [address] 91658- 4356 Jun, [facility] [id number] [place] [address] 10015- 8696 May, [facility] [id number] [place] [address] 00681- 7016 May, [facility] [id number] [place] [address] 91490- 0426 May, [facility] [id number] [place] [address] 15420- 4396 May, [facility] [id number] [place] [address] 246674- 1429 May, [facility] [place] [facility] [address] [id number] [place] [address]- 3814 May, [facility] [place] [facility] [address] [id number] [place] [address]- 8221 May, [facility] [place] [facility] [address] [id number] [place] [address]- 3137 May, [facility] [place] [facility] [address] [id number] [place] [address]- 3223 Apr, [facility] [place] [facility] [address] [id number] [place] [address]- 6174 Apr, [facility] [place] [facility] [address] [id number] [place] [address]- 9220 Apr, [facility] [place] [facility] [address] [id number] [place] [address]- 0394 Mar, [facility] [place] [facility] [address] [id number] [place] [address]- 4291 Mar, [facility] [place] [facility] [address] [id number] [place] [address]- 6382 Mar, [facility] [place] [facility] [address] [id number] [place] [address]- 2515 Mar, [facility] [place] [facility] [address] [id number] [place] [address]- 7106 Feb, [facility] [place] [facility] [address] [id number], [place] [address]- 1007 Feb, [facility] [place] [facility] [address] [id number] [place] [address]- 5792 Feb, [facility] [place] [facility] [address] [id number] [place] [address]- 7455 Feb, [facility] [place] [facility] [address] [id number] [place] [address]- 9263 Feb, [facility] [place] [facility] [address] [id number] [place] [address]- 4306 Feb, [facility] [place] [facility] [address] [id number] [place] [address]- 9183 Feb, [facility] [place] [facility] [address] [id number] [place] [address]- 6621 Jan, [facility] [place] [facility] [address] [id number] [place] [address]- 1936 Jan, [facility] [place] [facility] [address] [id number] [place] [address]- 7107 Jan, [facility] [place] [facility] [address] [id number] [place] [address]- 2885 Jan, [facility] [place] [facility] [address] [id number] [place] [address]- 5325 Dec, [facility] [place] [facility] [address] [id number] [place] [address]- 7272 Dec, [facility] [place] [facility] [address] [id number] [place] [address]- 5804 Dec, [facility] [place] [facility] [address] [id number] [place] [address]- 9174 Dec, [facility] [place] [facility] [address] [id number] [place] [address]- 4211 Dec, [facility] [place] [facility] [address] [id number] [place] [address]- 5264 16 Dec, 2013 [facility] [place] [facility] [address] [id number] [place] [address]- 9593 24 Nov, 2013 [facility] [place] [facility] [address] [id number] [place] [address]- 4737 23 Nov, 2013 [facility] [place] [facility] [address] [id number] [place] [address]- 5395 23 Nov, 2013 [facility] [place] [facility] [address] [id number] [place] [address]- 3460 17 Nov, 2013 [facility] [place] [facility] [address] [id number] [place] [address]- 5046 Nov, [facility] [place] [facility] [address] [id number] [place] [address]- 8862 Nov, [facility] [place] [facility] [address] [id number] [place] [address]- 0568 Nov, [facility] [place] [facility] [address] [id number] [place] [address]- 3551 Oct, [facility] [place] [facility] [address] [id number] [place] [address]- 1039 Oct, [facility] [place] [facility] [address] [id number] [place] [address]- 6088 Oct, [facility] [place] [facility] [address] [id number] [place] [address]- 6003 Oct, [facility] [place] [facility] [address] [id number] [place] [address]- 8334 Oct, [facility] [place] [facility] [address] [id number] [place] [address]- 6961 Oct, [facility] [place] [facility] [address] [id number] [place] [address]- 1726 Oct, [facility] [place] [facility] [address] [id number] [place] [address]- 7849 Oct, [facility] [place] [facility] [address] [id number] [place] [address]- 9717 Oct, [facility] [place] [facility] [address] [id number] [place] [address]- 6570 Sep, [facility] [place] [facility] [address] [id number] [place] [address]- 0643 Sep, [facility] [place] [facility] [address] [id number] [place] [address]- 5542 Sep, [facility] [place] [facility] [address] [id number] [place] [address]- 2056 Sep, [facility] [place] [facility] [address] [id number] [place] [address]- 9004 Sep, [facility] [place] [facility] [address] [id number] [place] [address]- 4949 Sep, [facility] [place] [facility] [address] [id number] [place] [address]- 4689 Sep, [facility] [place] [facility] [address] [id number] [place] [address]- 9057 Sep, [facility] [place] [facility] [address] [id number] [place] [address]- 2333 Sep, [facility] [place] [facility] [address] [id number] [place] [address]- 9301 Aug, [facility] [place] [facility] [address] [id number] [place] [address]- 1028 Aug, [facility] [place] [facility] [address] [id number] [place] [address]- 1749 Jun, [facility] [place] [facility] [address] [id number] [place] [address]- 6579 Jun, [facility] [place] [facility] [address] [id number] [place] [address]- 5474 May, [facility] [place] [facility] [address] [id number] [place] [address]- 4322 May, [facility] [place] [facility] [address] [id number] [place] [address]- 6788 Apr, [facility] [place] [facility] [address] [id number] [place] 5804 Apr, [facility] [place] [facility] [address] [id number] [place] [address]- 9831 Apr, [facility] [place] [facility] [address] [id number] [place] [address]- 7364 Apr, [facility] [place] [facility] [address] [id number] [place] [address]- 2546 Feb, [facility] [address] [id number] [place] [address]- 3156 Feb, [facility] [place] [facility] [address] [id number] [place] [address]- 2546 Jan, [facility] [place] [facility] [address] [id number] [place] [address]- 2546 Jan, [facility] [place] [facility] [address] [id number] [place] [address]- 2546 Nov, [facility] [place] [facility] [address] [id number] [place] [address] Sep, [facility] [place] [facility] [address] [id number] [place] [address] Sep, [facility] [place] [facility] [address] [id number] [place] [address] Aug, [facility] [place] [facility] [address] [id number] [place] [address] Aug, [facility] [place] [facility] [address] [id number] [place] [address] Aug, [facility] [place] [facility] [address] [id number] [place] [address] July, [facility] [place] [facility] [address] [id number] [place] [address] July, [facility] [place] [facility] [address] [id number] [place] [address] July, [facility] [place] [facility] [address] [id number] [place] [address] May, [facility] [place] [facility] [address] [id number] [place] [address] May, [facility] [place] [facility] [address] [id number] [place] [address] Jan, [facility] [place] [facility] [address] [id number] [place] [address] Jan, [facility] [place] [facility] [address] [id number] [place] [address] Jan, [facility] [place] [facility] [address] [id number] [place] [address] Jan, [facility] [place] [facility] [address] [id number] [place] [address] Jan, [facility] [place] [facility] [address] [id number] [place] [address] Jan, [facility] [place] [facility] [address] [id number] [place] [address] Jan, [facility] [place] [facility] [address] [id number] [place] [address] Jan, [facility] [place] [facility] [address] [id number] [place] [address] Dec, [facility] [place] [facility] [address] [id number] [place] [address] Dec, [facility] [place] [facility] [address] [id number] [place] [address] Aug, [facility] [place] [facility] [address] [id number], [place] [address] July, [facility] [place] [facility] [address] [id number], [place] [address] Jun, [facility] [place] [facility] [address] [id number] [place] [address] May, [facility] [place] [facility] [address] [id number], [place] [address] May, [facility] [place] [facility] [address] [id number] [place] [address] May, [facility] [place] [facility] [address] [facility] [id number] [place] [id number] [address] Jun, IMMUNIZATIONS No Known Immunizations SOCIAL HISTORY Never Assessed REASON FOR VISIT Refill request PLAN OF CARE VITAL SIGNS MEDICATIONS Unknown [...]
[2018-02-18] MEDS ORDERED: HURRICAINE EXT TUBE (BENZOCAINE) XX PRN (08:30)
--- OUTSIDE RECORDS SUMMARY | 2018-02-18 08:30 | XMS REPORT ---
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 Name Role Phone JANES PECK Unavailable PROBLEMS Type Condition ICD9-CM Code IHP82-XC Code Onset Dates Condition Status SNOMED Code Problem Angina pectoris I20.9 Active 356901960 Problem Dyshidrotic eczema L30.1 Active 231239199 Problem Polyneuropathy G62.9 Active 39502481 Problem Diverticulitis K57.92 Active 540051378 Problem Other obesity due to excess calories E66.09 Active 610188974 Problem Body mass index (BMI) of 30.0-30.9 in adult Z68.30 Active 219582216 Problem Type 2 diabetes mellitus with diabetic neuropathic arthropathy, 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 Active 951789978 Problem Anxiety F41.9 Active 48063666 Problem Type 2 diabetes mellitus without complication, without long-term current use of insulin E11.9 Active 434202368 Problem GERD (gastroesophageal reflux disease) K21.9 Active 250051927 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 709235282 Problem CAD (coronary artery disease) I25.10 Active 67796407 Problem Trochanteric bursitis of right hip M70.61 Active 044037961597250 Problem Syndrome X, 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 Active 798802358 Problem Seborrheic keratoses L82.1 Active 274481402 Problem Hyperlipidemia E78.5 Active 08944753 Problem Sciatica of right side M54.31 Active 40931758 Problem Vaginal cancer C52 Active 175655473 ALLERGIES No Information ENCOUNTERS Encounter Location Date Diagnosis [facility] [address] [facility] [id number] [address] Oct, [facility] [address] [facility] [id number], [place] [address] Sep, Diverticulitis K57.92 [facility] [id number] [place] [address] 23726- 5973 Sep, Diverticulitis K57.92 [facility] [id number] [place] [address] 36403- 5147 Sep, [facility] [id number] [place] [address] 87871 -9919 Sep, Diarrhea, unspecified type R19.7 [place] [id number] [place] [address] 86732- 7719 Sep, [place] [address] 07237- 6278 Sep, Pain in right hip M25.551 [place] [id number] [place] [address] 37780- 0424 Sep, [place] [id number] [place] [address] 63530- 8250 Aug, Acute cystitis with hematuria N30.01 [place] [id number] [place] [address] 56142- 0555 Aug, Type 2 diabetes mellitus without complication, [...] Angina pectoris I20.9 and Vaginal cancer C52 [facility] [id number] [place] [address] 79376- 5193 Aug, [place] [id number] [place] [address] 47197- 5495 Aug, [place] [id number] [place] [address] 97027- 1570 Aug, Vaginal candidiasis B37.3 and Vaginal itching L29.8 [place] [id number] [place] [address] 55679- 0272 Aug, Dysuria R30.0 and Acute cystitis with hematuria N30.01 [place] [address] 20780- 7344 July, [place] [id number] [place] [address] 42288- 7859 July, [place] [address] 00291- 8298 July, [place] [address] 07207- 5161 Jun, [place] [address] 54507- 5495 Jun, [facility] [id number] [place] [address] 08981 -8058 Jun, Right anterior knee pain M25.561 [place] [id number] [place] [address] 49425- 5879 Jun, [facility] [id number] [place] [address] 75657- 0371 Jun, Type 2 diabetes mellitus with diabetic neuropathic arthropathy, 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 [place] [id number] [place] [address] 85298- 6139 May, Acute non-recurrent maxillary sinusitis J01.00 and Acute suppurative otitis media of left ear without spontaneous rupture of tympanic membrane, recurrence not specified H66.002 [facility] [id number] [place] [address] 94948 -5707 May, Viral upper respiratory tract infection J06.9 [place] [address] [place] [address]- 4266 Apr, [facility] [address] 99092- 4334 Apr, Type 2 diabetes mellitus with diabetic [...] index (BMI) of 32.0-32.9 in adult Z68.[address] 38345- 5928 09 Apr, 2017 Type 2 diabetes mellitus without complication, without long- term current use of insulin E11.9 [place] [address] 57552- 1348 02 Apr, 2017 Papule R23.8 and Actinic keratosis L57.0 [facility] [address] 84500 -8981 Mar, Cough R05 ; Encounter for immunization Z23 ; Other viral agents as the cause of diseases classified elsewhere B97.89 and Acute upper respiratory infection, unspecified J06.9 [place] [address] 91640- 3800 14 Jan, 2017 Migraine without status migrainosus, not intractable, unspecified migraine type G43.[address] 28408- 2149 17 Sep, [address] 51264- 9637 13 Sep, 2016 Type 2 diabetes mellitus without complication, without long- term current use of insulin E11.9 ; Dehydration, mild E86.0 and Dyshidrotic eczema L30.1 [place] [id number] [place] [address] 46206- 2595 Sep, [place] [id number] [place] [address] 44477- 6187 Aug, Migraine without status migrainosus, not intractable, unspecified migraine type G43.909 [place] [address] 48770- 5845 July, [place] [id number] [place] [address] 36689- 6083 Jun, Medicare annual wellness visit, subsequent Z00.00 ; Hyperlipidemia E78.5 ; CAD (coronary artery disease) I25.10 and Vaginal cancer C52 [place] [id number] [place] [address] 22009- 7039 Jun, Sciatica M54.30 ; Pain in right hip M25.551 ; Dyshidrotic eczema L30.1 ; Candidiasis of breast B37.89 ; Right anterior knee pain M25.561 ; Hyperlipidemia E78.5 and Encounter for immunization Z23 [place] [id number] [place] [address] 25938- 2591 May, Ganglion cyst of joint of finger of left hand M67.442 [place] [id number] [place] [address] 30928- 9593 May, Migraine without status migrainosus, not intractable, unspecified migraine type G43.909 [place] [address] [place] [address] 98748- 9630 May, [place] [address] 67169- 1979 Apr, Skin lesion of back L98.9 and Encounter for immunization Z23 [place] [id number] [place] [address] 58383- 0602 Mar, Candidal dermatitis B37.2 ; Seborrheic keratoses L82.1 ; Polyneuropathy G62.9 and Dysuria R30.0 [facility] [address] [id number] [id number] Mar, Dental examination Z01.20 [facility] [id number] [place] [address] 74796- 9792 Mar, Neuritis M79.2 [place] [address] 69226- 1334 Feb, Drug allergy Z88.9 [place] [id number] [place] [address] 48399- 0990 Feb, Dysuria R30.0 [place] [id number] [place] [address] 85779- 2767 Feb, Acute cystitis with hematuria N30.01 [place] [id number] [place] [address] 08160- 0309 Feb, Dysuria R30.0 and Acute cystitis with hematuria N30.01 [place] [address] [place] [address] 16731- 1383 Feb, Angina pectoris I20.9 ; Finger pain, left M79.645 ; 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 ; GERD (gastroesophageal reflux disease) K21.9 ; Pain in right hip M25.551 ; Pain in left hip M25.552 and Encounter for screening mammogram for breast cancer Z12.31 [place] [address] [place] [address] 62898- 2680 Dec, Right hip pain M25.551 [place] [id number] [place] [address] 03746- 4630 Nov, GERD (gastroesophageal reflux disease) K21.9 ; Vaginal cancer C52 ; Pain in right hip M25.551 and Pain in left hip M25.552 [place] [address] [place] [address] 06251- 4467 Oct, Squamous cell carcinoma C80.1 [place] [id number] [place] [address] 06567- 8768 Oct, Skin lesions L98.9 and Encounter for well woman exam Z01.419 [place] [id number] [place] [address] 34355- 7766 Oct, [place] [address] 66831- 0183 Sep, [facility] [place] [id number] [place] [address] 18922 -4500 Aug, Atopic dermatitis, unspecified type L20.9 and Tick bite, initial encounter W57.XXXA [facility] [address] [place] [id number] [place] [address] 82638 -2907 Aug, [place] [address] 01102- 1625 July, Pre-procedural laboratory examination Z01.812 [place] [id number] [place] [address] 74128- 9556 July, Migraine without status migrainosus, not intractable, unspecified migraine type G43.909 ; Barretts esophagus without dysplasia K22.70 ; Sciatic nerve pain, left M54.32 and Localized swelling, mass and lump, head R22.0 [place] [id number] [place] [address] 86622- 2320 May, [place] [id number] [place] [address] 63915- 3662 May, [facility] [address] [place] [id number] [place] [address] 54740 -5768 May, Unspecified fall, initial encounter W19.XXXA ; Unspecified place in unspecified non-institutional (private) residence as the place of occurrence of the external cause Y92.009 ; Mid back pain M54.9 ; Rib pain on right side R07.81 ; Buttock pain M79.1 and Post-traumatic headache, unspecified , not intractable G44.309 [place] [id number] [place] [address] 86223- 3762 10 Apr, 2015 Hypercholesteremia E78.0 ; Chest discomfort R07.89 ; 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 and History of sciatica Z86.69 [place] [address] 90097- 7666 Mar, Calculus of left kidney N20.0 ; Hyperlipidemia E78.5 ; Degeneration disease of medial meniscus, 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 ; Right knee pain M25.561 ; Sciatica M54.30 ; GERD (gastroesophageal reflux disease) K21.9 and 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 [place] [address] 60660- 3300 Mar, [place] [address] 62366- 9495 Mar, [place] [address] 23283- 5201 Mar, [place] [address] 17058- 3944 Mar, Plantar fasciitis M72.2 [place] [address] 59950- 3211 Mar, Degeneration disease of medial meniscus, 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 ; Right knee pain M25.561 ; Sciatica M54.30 ; GERD ( gastroesophageal reflux disease) K21.9 and 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 [place] [id number] [place] [address] 32024- 6888 Feb, [place] [address] 68069- 7259 Feb, Osteopenia M85.80 [place] [address] 87884- 3642 Feb, Screening for malignant neoplasm of breast Z12.39 and Encounter for screening mammogram for malignant neoplasm of breast Z12.31 [facility] [id number] [place] [address] 42981- 2134 Feb, Hip pain M25.[address] 20773- 0622 Feb, [address] 70940- 7842 Feb, Arthralgia of right hip M25.551 ; Sciatica M54.30 ; GERD ( gastroesophageal reflux disease) K21.9 ; 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 ; CAD ( coronary artery disease) I25.10 and Hyperlipidemia 272.4 [facility] [address] [place] [address] 02779 -1001 Jan, Pharyngitis J02.9 ; Body aches R52 ; Cough R05 and Sinusitis J32.[address] 57947- 5203 Nov, Contusion of foot 924.20 and Plantar fasciitis 728.71 [facility] [address] [id number] Oct, Dental examination V72.[address] 93473- 1332 Oct, [address] 39547- 0011 Oct, Coronary artery disease 414.[address] 81352- 7417 Oct, Zoster 053.[address] 35534- 1021 Sep, Pain in joint, ankle and foot 719.47 ; 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.85 ; Cervicalgia 723.1 ; Pain in joint, shoulder region 719.41 ; Coronary artery disease 414.00 and Need for shingles vaccine V04.89 [facility] [address] [address] Sep, Dental examination V72.2 [facility] [address] [address] 2546 Sep, [facility] [address] [address]- 2546 Aug, [facility] [id number] [place] [address] [id number] July, Dental examination V72.2 [facility] [address] [place] [address] 01297- 5046 July, Cough 786.2 [facility] [id number] [place] [address] 79524- 9716 July, Sinusitis 473.9 and Means esophagus 530.85 [facility] [id number] [place] [address] 72411- 8576 Jun, [facility] [address] [address]- 4445 Jun, [facility] [address], [place] [address]- 5226 May, [facility] [address] [address]- 0716 May, [facility] [address] [address]- 2736 May, [facility] [address], [place] [address]- 6626 May, [facility] [address], [place] [address]- 0636 May, [facility] [id number] [address]- 0866 May, [facility] [address] [address]- 5026 May, [facility] [place] [facility] [address] [id number] [place] [address]- 0540 May, [facility] [place] [facility] [address] [id number] [place] 4285 Apr, 2014 [facility] [place] [facility] [address] [id number] [place] [address]- 2722 Apr, [facility] [place] [facility] [address] [id number] [place] [address]- 5066 Apr, [facility] [place] [facility] [address] [id number] [place] [address]- 3213 Mar, [facility] [place] [facility] [address] [id number] [place] [address]- 9904 Mar, [facility] [place] [facility] [address] [id number] [place] [address]- 8700 Mar, [facility] [place] [facility] [address] [id number] [place] [address]- 2652 Mar, [facility] [place] [facility] [address] [id number] [place] [address]- 6158 Feb, [facility] [place] [facility] [address] [id number] [place] [address]- 0231 Feb, [facility] [place] [facility] [address] [id number] [place] [address]- 1641 Feb, [facility] [place] [facility] [address] [id number] [place] [address]- 2195 Feb, [facility] [place] [facility] [address] [id number] [place] [address]- 3054 Feb, [facility] [place] [facility] [address] [id number] [place] 6695 Feb, [facility] [place] [facility] [address] [id number] [place] [address]- 6650 Feb, [facility] [place] [facility] [address] [id number], [place] [address]- 1851 Jan, [facility] [place] [facility] [address] [id number] [place] [address]- 8714 Jan, [facility] [place] [facility] [address] [id number] [place] [address]- 3530 Jan, [facility] [place] [facility] [address] [id number] [place] [address]- 0444 Jan, [facility] [place] [facility] [address] [id number] [place] [address]- 6791 Dec, [facility] [place] [facility] [address] [id number] [place] [address]- 4808 Dec, [facility] [place] [facility] [address] [id number] [place] [address]- 9921 Dec, [facility] [place] [facility] [address] [id number] [place] [address]- 9567 Dec, [facility] [place] [facility] [address] [id number] [place] [address]- 8560 Dec, [facility] [place] [facility] [address] [id number] [place] [address]- 0902 16 Dec, 2013 [facility] [place] [facility] [address] [id number] [place] [address]- 4997 24 Nov, 2013 [facility] [place] [facility] [address] [id number] [place] [address]- 1863 23 Sep, 2013 [facility] [place] [facility] [address] [id number] [place] [address]- 4047 23 Sep, 2013 [facility] [place] [facility] [address] [id number] [place] [address]- 3566 17 Sep, 2013 [facility] [place] [facility] [address] [id number] [place] [address]- 4584 17 Sep, 2013 [facility] [place] [facility] [address] [id number] [place] [address]- 3537 05 Sep, 2013 [facility] [place] [facility] [address] [id number] [place] [address]- 8263 Nov, [facility] [place] [facility] [address] [id number] [place] [address]- 4332 Oct, [facility] [place] [facility] [address] [id number] [place] [address]- 0557 Oct, [facility] [place] [facility] [address] [id number] [place] [address]- 4607 Oct, [facility] [place] [facility] [address] [id number] [place] [address]- 8215 Oct, [facility] [place] [facility] [address] [id number] [place] [address]- 5375 Oct, [facility] [place] [facility] [address] [id number] [place] [address]- 1291 Oct, [facility] [place] [facility] [address] [id number] [place] [address]- 0971 Oct, [facility] [place] [facility] [address] [id number] [place] [address]- 2070 Oct, [facility] [place] [facility] [address] [id number] [place] [address]- 3190 Oct, [facility] [place] [facility] [address] [id number] [place] [address]- 0501 Sep, [facility] [place] [facility] [address] [id number] [place] [address]- 7330 Sep, [facility] [place] [facility] [address] [id number] [place] [address]- 6872 Sep, [facility] [place] [facility] [address] [id number] [place] [address]- 9017 Sep, [facility] [place] [facility] [address] [id number] [place] [address]- 7296 Sep, [facility] [place] [facility] [address] [id number] [place] [address]- 6993 Sep, [facility] [place] [facility] [address] [id number] [place] [address]- 8556 Sep, [facility] [place] [facility] [address] [id number] [place] [address]- 2679 Sep, [facility] [place] [facility] [address] [id number] [place] [address]- 1353 Sep, [facility] [place] [facility] [address] [id number] [place] [address]- 3464 Aug, [facility] [place] [facility] [address] [id number] [place] [address]- 9475 Aug, [facility] [place] [facility] [address] [id number] [place] [address]- 9119 Jun, [facility] [place] [facility] [address] [id number] [place] [address]- 6463 Jun, [facility] [place] [facility] [address] [id number] [place] [address]- 8454 May, [facility] [place] [facility] [address] [id number] [place] [address]- 8532 May, [facility] [place] [facility] [address] [id number] [place] [address]- 3953 Apr, [facility] [place] [facility] [address] [id number] [place] [address]- 0905 Apr, [facility] [place] [facility] [address] [id number] [place] [address]- 5099 Apr, [facility] [place] [facility] [address] [id number] [place] 0505 Apr, [facility] [place] [facility] [address] [id number] [place] [address]- 2995 Feb, [facility] [place] [facility] [address] [id number] [place] 6896 Feb, [facility] [place] [facility] [address] [id number] [place] [address]- 8489 Jan, [facility] [address] [id number] [place] [address]- 6544 Jan, [facility] [address] [id number] [place] [address]- 9210 Nov, [facility] [address] [id number] [place] [address]- 1672 Sep, [facility] [address] [id number] [place] [address]- 9029 Sep, [facility] [address] [id number] [place] [address]- 6814 Aug, [facility] [address] [id number] [place] [address]- 0445 Aug, [facility] [address] [id number] [place] [address]- 9758 Aug, [facility] [address] [id number] [place] [address] July, [facility] [address] [id number] [place] [address] July, [facility] [address] [id number] [place] [address] July, [facility] [address] [id number] [place] [address] May, [facility] [address] [id number] [place] [address] May, [facility] [address] [id number] [place] [address] Jan, [facility] [address] [id number] [place] [address] Jan, [facility] [address] [id number] [place] [address] Jan, [facility] [address] [id number] [address] Jan, [facility] [id number] [address] Jan, [facility] [id number], [place] [address] Jan, [facility] [id number], [place] [address] Jan, [facility] [id number], [place] [address] Jan, [facility] [id number], [place] [address] Dec, [facility] [id number], [place] [address] Dec, [facility] [id number], [place] [address] Aug, [facility] [id number], [place] [address] July, [facility] [id number] [address] Jun, [facility] [id number], [place] [address] May, [facility] [id number], [place] [address] May, [facility] [address] [id number], [place] [address] May, [facility] [id number] [address] Jun, IMMUNIZATIONS No Known Immunizations SOCIAL HISTORY Never Assessed REASON FOR VISIT Referral PLAN OF CARE VITAL SIGNS MEDICATIONS Unknown [...]
--- OUTSIDE RECORDS SUMMARY | 2018-02-18 08:31 | XMS REPORT ---
Author Author JANES PECK Organization [facility] Address [address] [place] [address] Care Team Providers Care Research Assistant Professor Name Role Phone JANES PECK Unavailable PROBLEMS Type Condition ICD9-CM Code IGA35-EK Code Onset Dates Condition Status SNOMED Code Problem Angina pectoris I20.9 Active 093256859 Problem Dyshidrotic eczema L30.1 Active 352850276 Problem Polyneuropathy G62.9 Active 70182495 Problem Diverticulitis K57.92 Active 379408421 Problem Other obesity due to excess calories E66.09 Active 164848523 Problem Body mass index (BMI) of 30.0-30.9 in adult Z68.30 Active 442269863 Problem Type 2 diabetes mellitus with diabetic neuropathic arthropathy, 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 Active 467704605 Problem Anxiety F41.9 Active 48751934 Problem Type 2 diabetes mellitus without complication, without long-term current use of insulin E11.9 Active 278088225 Problem GERD (gastroesophageal reflux disease) K21.9 Active 219521478 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 [id number] [place] [address] Oct, [facility] [address] [facility] [id number] [place] [address] 267[address] Sep, Diverticulitis K57.92 [facility] [address] [place] [address] Sep, [facility] [id number] [place] [address] 80173 -2199 Sep, Diarrhea, unspecified type R19.7 [facility] [id number] [place] [address] 33091- 3840 Sep, [facility] [id number] [place] [address] 06329- 8044 Sep, Pain in right hip M25.551 [place] [id number] [place] [address] 41191- 0948 Sep, [place] [id number] [place] [address] 45371- 9728 Aug, Acute cystitis with hematuria N30.01 [place] [id number] [place] [address] 52351- 6202 Aug, Type 2 diabetes mellitus without complication, [...] Angina pectoris I20.9 and Vaginal cancer C52 [facility] [id number] [place] [address] 13694- 3393 Aug, [place] [id number] [place] [address] 10358- 4891 Aug, [facility] [id number] [place] [address] 75997- 0408 Aug, Vaginal candidiasis B37.3 and Vaginal itching L29.8 [facility] [id number] [place] [address] 94343- 9969 Aug, Dysuria R30.0 and Acute cystitis with hematuria N30.01 [facility] [id number] [place] [address] 32876- 3868 July, [facility] [address] 54027- 6261 July, [facility] [id number] [place] [address] 74213- 3862 July, [place] [address] 24828- 8760 Jun, [facility] [id number] [place] [address] 20553- 2287 Jun, [facility] [address] 99075 -3211 Jun, Right anterior knee pain M25.561 [facility] [id number] [place] [address] 68285- 8055 Jun, [place] [address] 10862- 5323 Jun, Type 2 diabetes mellitus with diabetic neuropathic arthropathy, 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 [facility] [id number] [place] [address] 19045- 6329 May, Acute non-recurrent maxillary sinusitis J01.00 and Acute suppurative otitis media of left ear without spontaneous rupture of tympanic membrane, recurrence not specified H66.002 [facility] [id number] [place] [address] 98271 -8848 May, Viral upper respiratory tract infection J06.9 [facility] [id number] [place] [address] 61229- 9387 Apr, [facility] [address] 31922- 6180 19 Apr, 2017 Type 2 diabetes mellitus [...] index (BMI) of 32.0-32.9 in adult Z68.[address] 27102- 0106 09 Apr, 2017 Type 2 diabetes mellitus without complication, without long- term current use of insulin E11.[address] 99691- 9128 02 Apr, 2017 Papule R23.8 and Actinic keratosis L57.0 [facility] [address] 67621 -4970 11 Mar, 2017 Cough R05 ; Encounter for immunization Z23 ; Other viral agents as the cause of diseases classified elsewhere B97.89 and Acute upper respiratory infection, unspecified J06.[address] 65348- 5895 Jan, Migraine without status migrainosus, not intractable, unspecified migraine type G43.909 [place] [address] 26618- 1477 17 Sep, [address] 25439- 8136 13 Sep, 2016 Type 2 diabetes mellitus without complication, without long- term current use of insulin E11.9 ; Dehydration, mild E86.0 and Dyshidrotic eczema L30.1 [facility] [address] [place] [address] 96932- 2459 Sep, [place] [id number] [place] [address] 82790- 6189 Aug, Migraine without status migrainosus, not intractable, unspecified migraine type G43.909 [place] [id number] [place] [address] 54219- 8255 July, [address] 33504- 9647 Jun, Medicare annual wellness visit, subsequent Z00.00 ; Hyperlipidemia E78.5 ; CAD (coronary artery disease) I25.10 and Vaginal cancer C52 [address] 31012- 5206 Jun, Sciatica M54.30 ; Pain in right hip M25.551 ; Dyshidrotic eczema L30.1 ; Candidiasis of breast B37.89 ; Right anterior knee pain M25.561 ; Hyperlipidemia E78.5 and Encounter for immunization Z23 [place] [address] 25203- 1488 May, Ganglion cyst of joint of finger of left hand M67.[address] 49703- 4827 May, Migraine without status migrainosus, not intractable, unspecified migraine type G43.909 [place] [id number] [place] [address] 27119- 8796 May, [address] 43304- 6978 Apr, Skin lesion of back L98.9 and Encounter for immunization Z23 [address] 90834- 8065 Mar, Candidal dermatitis B37.2 ; Seborrheic keratoses L82.1 ; Polyneuropathy G62.9 and Dysuria R30.0 [facility] [id number] [place] [address] [id number] Mar, Dental examination Z01.20 [place] [address] [place] [address] 51908- 3701 Mar, Neuritis M79.2 [place] [id number] [place] [address] 34318- 4761 Feb, Drug allergy Z88.9 [place] [id number] [place] [address] 42432- 3799 Feb, Dysuria R30.0 [place] [id number] [place] [address] 84495- 0038 Feb, Acute cystitis with hematuria N30.01 [place] [id number] [place] [address] 10105- 5804 Feb, Dysuria R30.0 and Acute cystitis with hematuria N30.01 [place] [address] [place] [address] 45501- 9882 Feb, Angina pectoris I20.9 ; Finger pain, left M79.645 ; 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 ; GERD (gastroesophageal reflux disease) K21.9 ; Pain in right hip M25.551 ; Pain in left hip M25.552 and Encounter for screening mammogram for breast cancer Z12.31 [place] [address] [place] [address] 97263- 1779 Dec, Right hip pain M25.551 [place] [id number] [place] [address] 49081- 6060 13 Nov, 2015 GERD (gastroesophageal reflux disease) K21.9 ; Vaginal cancer C52 ; Pain in right hip M25.551 and Pain in left hip M25.552 [place] [address] [place] [address] 94806- 6241 Oct, Squamous cell carcinoma C80.1 [place] [id number] [place] [address] 05749- 3397 Oct, Skin lesions L98.9 and Encounter for well woman exam Z01.419 [place] [id number] [place] [address] 24704- 9241 Oct, [place] [id number] [place] [address] 68291- 2526 Sep, [facility] [place] [id number] [place] [address] 61044 -2783 Aug, Atopic dermatitis, unspecified type L20.9 and Tick bite, initial encounter W57.XXXA [facility] [place] [address] 57028 -4908 Aug, [place] [address] 47314- 7195 July, Pre-procedural laboratory examination Z01.812 [place] [address] 51570- 5774 July, Migraine without status migrainosus, not intractable, unspecified migraine type G43.909 ; Barretts esophagus without dysplasia K22.70 ; Sciatic nerve pain, left M54.32 and Localized swelling, mass and lump, head R22.0 [place] [id number] [place] [address] 57659- 8981 May, [place] [id number] [place] [address] 52704- 6922 May, [facility] [place] [id number] [place] [address] 49563 -5575 May, Unspecified fall, initial encounter W19.XXXA ; Unspecified place in unspecified non-institutional (private) residence as the place of occurrence of the external cause Y92.009 ; Mid back pain M54.9 ; Rib pain on right side R07.81 ; Buttock pain M79.1 and Post-traumatic headache, unspecified , not intractable G44.309 [place] [id number] [place] [address] 19951- 8037 Apr, Hypercholesteremia E78.0 ; Chest discomfort R07.89 ; 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 and History of sciatica Z86.[address] 45944- 2851 Mar, Calculus of left kidney N20.0 ; Hyperlipidemia E78.5 ; Degeneration disease of medial meniscus, 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 ; Right knee pain M25.561 ; Sciatica M54.30 ; GERD (gastroesophageal reflux disease) K21.9 and 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 [place] [address] 13482- 3820 Mar, [address] 91121- 5780 Mar, [address] 94462- 7393 Mar, [address] 33537- 7627 Mar, Plantar fasciitis M72.[address] 32358- 5953 Mar, Degeneration disease of medial meniscus, 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 ; Right knee pain M25.561 ; Sciatica M54.30 ; GERD ( gastroesophageal reflux disease) K21.9 and 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 63084- 4795 Feb, [address] 37886- 4333 Feb, Osteopenia M85.[address] 68028- 9048 Feb, Screening for malignant neoplasm of breast Z12.39 and Encounter for screening mammogram for malignant neoplasm of breast Z12.[address] 10799- 9078 Feb, Hip pain M25.559 [facility] [id number] [place] [address] 15507- 7246 Feb, [place] [address] 95868- 6121 Feb, Arthralgia of right hip M25.551 ; Sciatica M54.30 ; GERD ( gastroesophageal reflux disease) K21.9 ; 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 ; CAD ( coronary artery disease) I25.10 and Hyperlipidemia 272.4 [facility] [id number] [place] [address] 66019 -6346 Jan, Pharyngitis J02.9 ; Body aches R52 ; Cough R05 and Sinusitis J32.[address] 15512- 7376 Nov, Contusion of foot 924.20 and Plantar fasciitis 728.71 [facility] [address] [id number] Oct, Dental examination V72.[address] 08766- 8387 Oct, [place] [address] 78530- 6035 Oct, Coronary artery disease 414.[address] 99057- 5602 Oct, Zoster 053.9 [place] [address] 93743- 0756 Sep, Pain in joint, ankle and foot 719.47 ; 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.85 ; Cervicalgia 723.1 ; Pain in joint, shoulder region 719.41 ; Coronary artery disease 414.00 and Need for shingles vaccine V04.89 [facility] [id number] [place] [address] [id number] Sep, Dental examination V72.2 [place] [id number] [address]- 1509 Sep, [facility] [address] [facility] [id number] [place] [address]- 8367 Aug, [facility] [address] [id number] [place] [id number] July, Dental examination V72.2 [facility] [address] [address]- 1579 July, Cough 786.2 [facility] [id number] [address]- 0625 July, Sinusitis 473.9 and Means esophagus 530.85 [facility] [id number] [address]- 7474 Jun, [facility] [address] [address]- 3608 Jun, [facility] [address] [id number] [place] [address]- 3432 May, [facility] [address] [id number] [place] [address]- 7910 May, [facility] [address] [address]- 8889 May, [facility] [address] [id number] [place] [address]- 4454 May, [facility] [address] [id number] [place] [address]- 6640 May, [facility] [address] [id number] [place] [address]- 9998 May, [facility] [address] [facility] [id number] [place] [address]- 9627 May, [facility] [id number] [address]- 6522 May, [facility] [address] [id number] [place] [address]- 5686 06 Apr, 2014 [facility] [place] [facility] [address] [id number] [place] [address]- 4902 Apr, 2014 [facility] [place] [facility] [address] [id number] [place] [address]- 1266 Apr, [facility] [place] [facility] [address] [id number] [place] [address]- 4678 Mar, [facility] [place] [facility] [address] [id number] [place] [address]- 5149 Mar, [facility] [place] [facility] [address] [id number] [place] [address]- 0322 Mar, [facility] [place] [facility] [address] [id number] [place] [address]- 7909 Mar, [facility] [place] [facility] [address] [id number] [place] [address]- 1546 Feb, [facility] [place] [facility] [address] [id number] [place] [address]- 5626 Feb, [facility] [place] [facility] [address] [id number] [place] [address]- 7193 Feb, [facility] [place] [facility] [address] [id number] [place] [address]- 5795 Feb, [facility] [place] [facility] [address] [id number] [place] [address]- 7694 Feb, [facility] [place] [facility] [address] [id number] [place] [address]- 6612 Feb, [facility] [place] [facility] [address] [id number] [place] [address]- 9468 Feb, [facility] [place] [facility] [address] [id number] [place] [address]- 9946 Jan, [facility] [place] [facility] [address] [id number] [place] [address]- 7498 Jan, [facility] [place] [facility] [address] [id number] [place] [address]- 1116 Jan, [facility] [place] [facility] [address] [id number] [place] [address]- 7145 Jan, [facility] [place] [facility] [address] [id number] [place] [address]- 4388 Dec, [facility] [place] [facility] [address] [id number] [place] [address]- 8147 Dec, [facility] [place] [facility] [address] [id number] [place] [address]- 2439 Dec, [facility] [place] [facility] [address] [id number] [place] [address]- 0269 Dec, [facility] [place] [facility] [address] [id number] [place] [address]- 4089 Dec, [facility] [place] [facility] [address] [id number] [place] [address]- 7539 Dec, [facility] [place] [facility] [address] [id number] [place] [address]- 7648 24 Nov, 2013 [facility] [place] [facility] [address] [id number] [place] [address]- 8212 23 Nov, 2013 [facility] [place] [facility] [address] [id number] [place] [address]- 5093 23 Nov, 2013 [facility] [place] [facility] [address] [id number] [place] [address]- 8654 17 Nov, 2013 [facility] [place] [facility] [address] [id number] [place] [address]- 5376 17 Nov, 2013 [facility] [place] [facility] [address] [id number] [place] [address]- 5281 05 Sep2013 [facility] [place] [facility] [address] [id number] [place] [address]- 4970 05 Nov, 2013 [facility] [place] [facility] [address] [id number] [place] [address]- 2748 Oct, [facility] [place] [facility] [address] [id number] [place] [address]- 8097 Oct, [facility] [place] [facility] [address] [id number] [place] [address]- 9983 Oct, [facility] [place] [facility] [address] [id number] [place] [address]- 8613 Oct, [facility] [place] [facility] [address] [id number] [place] [address]- 7145 Oct, [facility] [place] [facility] [address] [id number] [place] [address]- 0641 Oct, [facility] [place] [facility] [address] [id number] [place] [address]- 7717 Oct, [facility] [place] [facility] [address] [id number] [place] [address]- 0494 Oct, [facility] [place] [facility] [address] [id number] [place] [address]- 5270 Oct, [facility] [place] [facility] [address] [id number] [place] [address]- 2048 Sep, [facility] [place] [facility] [address] [id number] [place] [address]- 6914 Sep, [facility] [place] [facility] [address] [id number] [place] [address]- 3523 Sep, [facility] [place] [facility] [address] [id number] [place] [address]- 4065 Sep, [facility] [place] [facility] [address] [id number] [place] [address]- 9438 Sep, [facility] [place] [facility] [address] [id number] [place] [address]- 8345 Sep, [facility] [place] [facility] [address] [id number] [place] [address]- 7432 Sep, [facility] [place] [facility] [address] [id number] [place] [address]- 5759 Sep, [facility] [place] [facility] [address] [id number] [place] [address]- 3223 Sep, [facility] [place] [facility] [address] [id number] [place] [address]- 8515 Aug, [facility] [place] [facility] [address] [id number] [place] [address]- 3958 Aug, [facility] [place] [facility] [address] [id number] [place] [address]- 5774 Jun, [facility] [place] [facility] [address] [id number] [place] [address]- 6139 Jun, [facility] [place] [facility] [address] [id number] [place] [address]- 4259 May, [facility] [place] [facility] [address] [id number] [place] [address]- 9134 May, [facility] [place] [facility] [address] [id number] [place] [address]- 0513 Apr, [facility] [place] [facility] [address] [id number] [place] [address]- 3867 Apr, [facility] [place] [facility] [address] [id number] [place] [address]- 3518 Apr, [facility] [place] [facility] [address] [id number] [place] [address]- 9721 Apr, [facility] [place] [facility] [address] [id number] [place] [address]- 1276 Feb, [facility] [place] [facility] [address] [id number] [place] 7600 Feb, [facility] [place] [facility] [address] [id number] [place] 0910 Jan, [facility] [place] [facility] [address] [id number] [place] [address]- 2239 Jan, [facility] [address] [id number] [place] [address]- 6189 Nov, [facility] [place] [facility] [address] [id number] [place] [address]- 1348 Sep, [facility] [place] [facility] [address] [id number] [place] [address]- 9257 Sep, [facility] [place] [facility] [address] [id number] [place] [address]- 2298 Aug, [facility] [place] [facility] [address] [id number] [place] [address]- 1575 Aug, [facility] [place] [facility] [address] [id number] [place] [address]- 2281 Aug, [facility] [address] [id number] [place] [address]- 3396 July, [facility] [place] [facility] [address] [id number] [place] [address]- 6847 July, [facility] [place] [facility] [address] [id number] [place] [address]- 9972 July, [facility] [place] [facility] [address] [id number] [place] [address]- 0929 May, [facility] [place] [facility] [address] [id number] [place] [address]- 1450 May, [facility] [place] [facility] [address] [id number] [place] [address]- 8655 Jan, [facility] [place] [facility] [address] [id number] [place] [address] Jan, [facility] [place] [facility] [address] [id number] [place] [address] Jan, [facility] [place] [facility] [address] [id number] [place] [address] Jan, [facility] [place] [facility] [address] [id number] [address] Jan, [facility] [id number] [address] Jan, [facility] [id number] [address] Jan, [facility] [id number] [address] Jan, [facility] [id number] [address] Dec, [facility] [id number] [place] [address] Dec, [facility] [id number] [address] Aug, [facility] [address] [address] July, [facility] [address] [address] Jun, [facility] [address] [address] May, [facility] [address] [id number] [address] May, [facility] [address] [id number] [address] May, [facility] [address] [id number] [address] Jun, IMMUNIZATIONS No Known Immunizations SOCIAL HISTORY Never Assessed REASON FOR VISIT Medication refill request PLAN OF CARE VITAL SIGNS MEDICATIONS Medication Instructions Dosage Frequency Start Date End Date Duration Status Metformin HCl 500 mg Orally Once a day with evening meal 1 tablet with meals July, 30 days Active RESULTS No Results PROCEDURES [...]
--- OUTSIDE RECORDS SUMMARY | 2018-02-18 08:31 | XMS REPORT ---
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 Name Role Phone JANES PECK Unavailable PROBLEMS Type Condition ICD9-CM Code MXL14-FT Code Onset Dates Condition Status SNOMED Code Problem Angina pectoris I20.9 Active 863847153 Problem Dyshidrotic eczema L30.1 Active 157447728 Problem Polyneuropathy G62.9 Active 03333198 Problem Diverticulitis K57.92 Active 055788635 Problem Other obesity due to excess calories E66.09 Active 708750394 Problem Body mass index (BMI) of 30.0-30.9 in adult Z68.30 Active 176705043 Problem Type 2 diabetes mellitus with diabetic neuropathic arthropathy, 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 Active 074049757 Problem Anxiety F41.9 Active 95742548 Problem Type 2 diabetes mellitus without complication, without long-term current use of insulin E11.9 Active 027724627 Problem GERD (gastroesophageal reflux disease) K21.9 Active 831669321 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 466222397 Problem CAD (coronary artery disease) I25.10 Active 10393805 Problem Trochanteric bursitis of right hip M70.61 Active 877541932740429 Problem Syndrome X, 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 Active 773922720 Problem Seborrheic keratoses L82.1 Active 470292203 Problem Hyperlipidemia E78.5 Active 24925982 Problem Sciatica of right side M54.31 Active 00654840 Problem Vaginal cancer C52 Active 100850191 ALLERGIES No Information ENCOUNTERS Encounter Location Date Diagnosis [facility] [address] [facility] [id number] [address] Oct, [facility] [address] [facility] [id number], [place] [address] Sep, Diverticulitis K57.92 [facility] [address] [address] Sep, [facility] [id number] [place] [address] 54345 -7576 Sep, Diarrhea, unspecified type R19.7 [facility] [id number] [place] [address] 66664- 7216 Sep, [facility] [id number] [place] [address] 92919- 2992 Sep, Pain in right hip M25.551 [place] [id number] [place] [address] 19814- 4362 Sep, [place] [id number] [place] [address] 59076- 7661 Aug, Acute cystitis with hematuria N30.01 [place] [id number] [place] [address] 38426- 5804 Aug, Type 2 diabetes mellitus without complication, [...] Angina pectoris I20.9 and Vaginal cancer C52 [facility] [id number] [place] [address] 04994- 8023 Aug, [place] [id number] [place] [address] 28977- 3930 Aug, [facility] [id number] [place] [address] 71934- 2971 Aug, Vaginal candidiasis B37.3 and Vaginal itching L29.8 [facility] [id number] [place] [address] 51113- 2277 Aug, Dysuria R30.0 and Acute cystitis with hematuria N30.01 [facility] [id number] [place] [address] 22691- 3288 July, [facility] [address] 08021- 7214 July, [facility] [id number] [place] [address] 49836- 1260 July, [place] [address] 95939- 3953 Jun, [facility] [id number] [place] [address] 05619- 6995 Jun, [facility] [address] 70411 -4614 Jun, Right anterior knee pain M25.561 [facility] [id number] [place] [address] 27758- 7843 Jun, [place] [address] 23101- 7738 Jun, Type 2 diabetes mellitus with diabetic neuropathic arthropathy, 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 [facility] [id number] [place] [address] 09775- 6379 May, Acute non-recurrent maxillary sinusitis J01.00 and Acute suppurative otitis media of left ear without spontaneous rupture of tympanic membrane, recurrence not specified H66.002 [facility] [id number] [place] [address] 05888 -9104 May, Viral upper respiratory tract infection J06.9 [facility] [id number] [place] [address] 06655- 6910 Apr, [facility] [address] 14483- 4727 19 Apr, 2017 Type 2 diabetes mellitus [...] index (BMI) of 32.0-32.9 in adult Z68.[address] 50073- 9915 09 Apr, 2017 Type 2 diabetes mellitus without complication, without long- term current use of insulin E11.[address] 97120- 9796 02 Apr, 2017 Papule R23.8 and Actinic keratosis L57.0 [facility] IN [facility] [address] 18824 -0404 11 Mar, 2017 Cough R05 ; Encounter for immunization Z23 ; Other viral agents as the cause of diseases classified elsewhere B97.89 and Acute upper respiratory infection, unspecified J06.[address] 14177- 8380 Jan, Migraine without status migrainosus, not intractable, unspecified migraine type G43.909 [place] [address] 21359- 3676 17 Sep, [address] 03960- 5706 13 Sep, 2016 Type 2 diabetes mellitus without complication, without long- term current use of insulin E11.9 ; Dehydration, mild E86.0 and Dyshidrotic eczema L30.1 [facility] [address] [place] [address] 70142- 0747 Sep, [place] [id number] [place] [address] 34979- 1706 Aug, Migraine without status migrainosus, not intractable, unspecified migraine type G43.909 [facility] [id number] [place] [address] 06491- 1880 July, [address] 13689- 3925 Jun, Medicare annual wellness visit, subsequent Z00.00 ; Hyperlipidemia E78.5 ; CAD (coronary artery disease) I25.10 and Vaginal cancer C52 [address] 69232- 9204 Jun, Sciatica M54.30 ; Pain in right hip M25.551 ; Dyshidrotic eczema L30.1 ; Candidiasis of breast B37.89 ; Right anterior knee pain M25.561 ; Hyperlipidemia E78.5 and Encounter for immunization Z23 [place] [address] 80501- 5079 May, Ganglion cyst of joint of finger of left hand M67.[address] 48239- 0524 May, Migraine without status migrainosus, not intractable, unspecified migraine type G43.909 [place] [id number] [place] [address] 09391- 8472 May, [address] 84716- 1728 Apr, Skin lesion of back L98.9 and Encounter for immunization Z23 [address] 03642- 4081 Mar, Candidal dermatitis B37.2 ; Seborrheic keratoses L82.1 ; Polyneuropathy G62.9 and Dysuria R30.0 [facility] [id number] [place] [address] [id number] Mar, Dental examination Z01.20 [place] [address] [place] [address] 93915- 8742 Mar, Neuritis M79.2 [place] [id number] [place] [address] 01964- 8463 Feb, Drug allergy Z88.9 [place] [id number] [place] [address] 68388- 7591 Feb, Dysuria R30.0 [place] [id number] [place] [address] 47429- 9264 Feb, Acute cystitis with hematuria N30.01 [place] [id number] [place] [address] 80963- 0389 Feb, Dysuria R30.0 and Acute cystitis with hematuria N30.01 [place] [address] [place] [address] 87554- 3874 Feb, Angina pectoris I20.9 ; Finger pain, left M79.645 ; 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 ; GERD (gastroesophageal reflux disease) K21.9 ; Pain in right hip M25.551 ; Pain in left hip M25.552 and Encounter for screening mammogram for breast cancer Z12.31 [place] [address] [place] [address] 90023- 5388 Dec, Right hip pain M25.551 [place] [id number] [place] [address] 22618- 2310 13 Nov, 2015 GERD (gastroesophageal reflux disease) K21.9 ; Vaginal cancer C52 ; Pain in right hip M25.551 and Pain in left hip M25.552 [place] [address] [place] [address] 82143- 9712 Oct, Squamous cell carcinoma C80.1 [place] [id number] [place] [address] 69674- 5998 Oct, Skin lesions L98.9 and Encounter for well woman exam Z01.419 [place] [id number] [place] [address] 90085- 6310 Oct, [place] [id number] [place] [address] 81503- 7063 Sep, [facility] [place] [id number] [place] [address] 11412 -1502 Aug, Atopic dermatitis, unspecified type L20.9 and Tick bite, initial encounter W57.XXXA [facility] [place] [address] 45445 -8273 Aug, [place] [address] 34133- 9386 July, Pre-procedural laboratory examination Z01.812 [place] [address] 83995- 0584 July, Migraine without status migrainosus, not intractable, unspecified migraine type G43.909 ; Barretts esophagus without dysplasia K22.70 ; Sciatic nerve pain, left M54.32 and Localized swelling, mass and lump, head R22.0 [place] [id number] [place] [address] 49151- 4406 May, [place] [id number] [place] [address] 36714- 6515 May, [facility] [address] [place] [id number] [place] [address] 06950 -5633 May, Unspecified fall, initial encounter W19.XXXA ; Unspecified place in unspecified non-institutional (private) residence as the place of occurrence of the external cause Y92.009 ; Mid back pain M54.9 ; Rib pain on right side R07.81 ; Buttock pain M79.1 and Post-traumatic headache, unspecified , not intractable G44.309 [place] [id number] [place] [address] 31841- 9161 Apr, Hypercholesteremia E78.0 ; Chest discomfort R07.89 ; 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 ; Right knee pain M25.561 ; Sciatica M54.30 ; GERD ( gastroesophageal reflux disease) K21.9 and 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 84847- 5843 Feb, [address] 71639- 0000 Feb, Osteopenia M85.[address] 30366- 0789 Feb, Screening for malignant neoplasm of breast Z12.39 and Encounter for screening mammogram for malignant neoplasm of breast Z12.[address] 24413- 2229 Feb, Hip pain M25.559 [facility] [id number] [place] [address] 22095- 0043 Feb, [place] [address] 53047- 6253 Feb, Arthralgia of right hip M25.551 ; Sciatica M54.30 ; GERD ( gastroesophageal reflux disease) K21.9 ; 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 ; CAD ( coronary artery disease) I25.10 and Hyperlipidemia 272.4 [facility] [id number] [place] [address] 55649 -0647 Jan, Pharyngitis J02.9 ; Body aches R52 ; Cough R05 and Sinusitis J32.[address] 21476- 4523 Nov, Contusion of foot 924.20 and Plantar fasciitis 728.71 [facility] [address] [id number] Oct, Dental examination V72.[address] 40945- 9776 Oct, [place] [address] 64450- 9397 Oct, Coronary artery disease 414.[address] 85357- 9298 Oct, Zoster 053.9 [place] [address] 67177- 5280 Sep, Pain in joint, ankle and foot 719.47 ; 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.85 ; Cervicalgia 723.1 ; Pain in joint, shoulder region 719.41 ; Coronary artery disease 414.00 and Need for shingles vaccine V04.89 [facility] [id number] [place] [address] [id number] Sep, Dental examination V72.2 [place] [id number] [address]- 7436 Sep, [facility] [address] [facility] [id number], [place] [address] Aug, [facility] [address] [id number] [address] July, Dental examination V72.2 [facility] [address], [place] [address]- 0829 July, Cough 786.2 [facility] [id number], [place] [address]- 4885 July, Sinusitis 473.9 and Means esophagus 530.85 [facility] [address] [id number] [address]- 4845 Jun, [facility] [address], [place] [address]- 7975 Jun, [facility] [address] [id number][place] [address]- 4955 May, [facility] [address] [id number], [place] [address]- 1946 May, [facility] [address], [place] [address]- 8862 May, [facility] [address] [id number], [place] [address]- 4153 May, [facility] [address] [id number], [place] [address]- 6607 May, [facility] [address] [id number], [place] [address]- 7668 May, [facility] [address] [facility] [id number], [place] [address]- 6245 May, [facility] [address] [id number] [address]- 2597 May, [facility] [address] [id number] [place] [address]- 3751 06 Apr, 2014 [facility] [place] [facility] [address] [id number] [place] [address]- 8275 Apr, 2014 [facility] [place] [facility] [address] [id number] [place] [address]- 0186 Apr, [facility] [place] [facility] [address] [id number] [place] [address]- 4125 Mar, [facility] [place] [facility] [address] [id number] [place] [address]- 9381 Mar, [facility] [place] [facility] [address] [id number] [place] [address]- 4800 Mar, [facility] [place] [facility] [address] [id number] [place] [address]- 4941 Mar, [facility] [place] [facility] [address] [id number] [place] [address]- 9110 Feb, [facility] [place] [facility] [address] [id number] [place] [address]- 9708 Feb, [facility] [place] [facility] [address] [id number] [place] [address]- 7790 Feb, [facility] [place] [facility] [address] [id number] [place] [address]- 4327 Feb, [facility] [place] [facility] [address] [id number] [place] [address]- 8925 Feb, [facility] [place] [facility] [address] [id number] [place] [address]- 9444 Feb, [facility] [place] [facility] [address] [id number] [place] [address]- 6824 Feb, [facility] [place] [facility] [address] [id number] [place] [address]- 3256 Jan, [facility] [place] [facility] [address] [id number] [place] [address]- 6101 Jan, [facility] [place] [facility] [address] [id number] [place] [address]- 9324 Jan, [facility] [place] [facility] [address] [id number] [place] [address]- 3615 Jan, [facility] [place] [facility] [address] [id number] [place] [address]- 6563 Dec, [facility] [place] [facility] [address] [id number] [place] [address]- 5349 Dec, [facility] [place] [facility] [address] [id number] [place] [address]- 0175 Dec, [facility] [place] [facility] [address] [id number] [place] [address]- 0601 Dec, [facility] [place] [facility] [address] [id number] [place] [address]- 4084 Dec, [facility] [place] [facility] [address] [id number] [place] [address]- 5214 Dec, [facility] [place] [facility] [address] [id number] [place] [address]- 0310 24 Nov, 2013 [facility] [place] [facility] [address] [id number] [place] [address]- 5338 23 Nov, 2013 [facility] [place] [facility] [address] [id number], [place] [address]- 2033 23 Nov, 2013 [facility] [place] [facility] [address] [id number], [place] [address]- 7000 17 Nov, 2013 [facility] [place] [facility] [address] [id number] [place] [address]- 1791 17 Nov, 2013 [facility] [place] [facility] [address] [id number] [place] [address]- 3390 05 Sep2013 [facility] [place] [facility] [address] [id number] [place] [address]- 7299 05 Nov, 2013 [facility] [place] [facility] [address] [id number] [place] [address]- 1761 Oct, [facility] [place] [facility] [address] [id number] [place] [address]- 1295 Oct, [facility] [place] [facility] [address] [id number] [place] [address]- 9665 Oct, [facility] [place] [facility] [address] [id number] [place] [address]- 9645 Oct, [facility] [place] [facility] [address] [id number] [place] [address]- 3371 Oct, [facility] [place] [facility] [address] [id number] [place] [address]- 3557 Oct, [facility] [place] [facility] [address] [id number] [place] [address]- 8603 Oct, [facility] [place] [facility] [address] [id number] [place] [address]- 4628 Oct, [facility] [place] [facility] [address] [id number] [place] [address]- 9435 Oct, [facility] [place] [facility] [address] [id number] [place] [address]- 7706 Sep, [facility] [place] [facility] [address] [id number] [place] [address]- 9454 Sep, [facility] [place] [facility] [address] [id number] [place] [address]- 1033 Sep, [facility] [place] [facility] [address] [id number] [place] [address]- 3524 Sep, [facility] [place] [facility] [address] [id number] [place] [address]- 0104 Sep, [facility] [place] [facility] [address] [id number] [place] [address]- 5730 Sep, [facility] [place] [facility] [address] [id number] [place] [address]- 5400 Sep, [facility] [place] [facility] [address] [id number] [place] [address]- 0766 Sep, [facility] [place] [facility] [address] [id number] [place] [address]- 9693 Sep, [facility] [place] [facility] [address] [id number] [place] [address]- 6575 Aug, [facility] [place] [facility] [address] [id number] [place] [address]- 2227 Aug, [facility] [place] [facility] [address] [id number] [place] [address]- 2104 Jun, [facility] [place] [facility] [address] [id number] [place] [address]- 0507 Jun, [facility] [place] [facility] [address] [id number] [place] [address]- 7807 May, [facility] [place] [facility] [address] [id number] [place] [address]- 6529 May, [facility] [place] [facility] [address] [id number] [place] [address]- 2381 Apr, [facility] [place] [facility] [address] [id number] [place] [address]- 9363 Apr, [facility] [place] [facility] [address] [id number] [place] [address]- 5432 Apr, [facility] [place] [facility] [address] [id number] [place] [address]- 7316 Apr, [facility] [place] [facility] [address] [id number] [place] [address]- 4309 Feb, [facility] [place] [facility] [address] [id number] [place] 3353 Feb, [facility] [place] [facility] [address] [id number] [place] 5404 Jan, [facility] [place] [facility] [address] [id number] [place] [address]- 9668 Jan, [facility] [address] [id number] [place] [address]- 6361 Nov, [facility] [place] [facility] [address] [id number] [place] [address]- 6324 Sep, [facility] [place] [facility] [address] [id number] [place] [address]- 4351 Sep, [facility] [place] [facility] [address] [id number] [place] [address]- 8543 Aug, [facility] [place] [facility] [address] [id number] [place] [address]- 8833 Aug, [facility] [place] [facility] [address] [id number] [place] [address]- 3403 Aug, [facility] [address] [id number] [place] [address]- 1186 July, [facility] [place] [facility] [address] [id number] [place] [address]- 7272 July, [facility] [place] [facility] [address] [id number] [place] [address]- 6398 July, [facility] [place] [facility] [address] [id number] [place] [address]- 3997 May, [facility] [place] [facility] [address] [id number] [place] [address]- 2345 May, [facility] [place] [facility] [address] [id number] [place] [address] Jan, [facility] [place] [facility] [address] [id number] [place] [address] Jan, [facility] [place] [facility] [address] [id number] [place] [address] Jan, [facility] [place] [facility] [address] [id number] [place] [address] Jan, [facility] [place] [facility] [address] [id number] [address] Jan, [facility] [address] [address] Jan, [facility] [id number] [address] Jan, [facility] [address] [address] Jan, [facility] [id number], [place] [address] Dec, [facility] [address], [place] [address] Dec, [facility] [address] [address] Aug, [facility] [address], [place] [address] July, [facility] [address], [place] [address] Jun, [facility] [address], [place] [address] May, [facility] [address] [id number], [place] [address] May, [facility] [address] [id number], [place] [address] May, [facility] [address] [facility] [place] [id number] [address] Jun, IMMUNIZATIONS No Known Immunizations SOCIAL HISTORY [...]
--- OUTSIDE RECORDS SUMMARY | 2018-02-18 08:31 | XMS REPORT ---
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 Name Role Phone CISCO JANES Unavailable PROBLEMS Type Condition ICD9-CM Code MTC58-GC Code Onset Dates Condition Status SNOMED Code Problem Angina pectoris I20.9 Active 118161330 Problem Dyshidrotic eczema L30.1 Active 825999004 Problem Polyneuropathy G62.9 Active 11876002 Problem Diverticulitis K57.92 Active 061281074 Problem Other obesity due to excess calories E66.09 Active 338484136 Problem Body mass index (BMI) of 30.0-30.9 in adult Z68.30 Active 553652696 Problem Type 2 diabetes mellitus with diabetic neuropathic arthropathy, 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 Active 325510888 Problem Anxiety F41.9 Active 73362679 Problem Type 2 diabetes mellitus without complication, without long-term current use of insulin E11.9 Active 025202221 Problem GERD (gastroesophageal reflux disease) K21.9 Active 859254494 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 665125012 Problem CAD (coronary artery disease) I25.10 Active 22468384 Problem Trochanteric bursitis of right hip M70.61 Active 246929450757056 Problem Syndrome X, 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 Active 687951584 Problem Seborrheic keratoses L82.1 Active 958234807 Problem Hyperlipidemia E78.5 Active 65471943 Problem Sciatica of right side M54.31 Active 31705079 Problem Vaginal cancer C52 Active 551135903 ALLERGIES No Information ENCOUNTERS Encounter Location Date Diagnosis [facility] [address] [facility] [id number] [address] Oct, [facility] [address] [facility] [id number], [place] [address] Sep, Diverticulitis K57.92 [facility] [id number] [place] [address] 70326- 9382 Sep, Diverticulitis K57.92 [facility] [address] [id number] [place] [address] 62705- 3118 Sep, [facility] [id number] [place] [address] 63078 -4334 Sep, Diarrhea, unspecified type R19.7 [place] [address] [place] [id number] [place] [address] 74680- 3408 Sep, [place] [address] 52607- 7384 Sep, Pain in right hip M25.551 [place] [address] [place] [id number] [place] [address] 26897- 7483 Sep, [place] [address] [place] [id number] [place] [address] 83041- 1634 Aug, Acute cystitis with hematuria N30.01 [place] [address] [place] [id number] [place] [address] 76079- 7324 Aug, Type 2 diabetes mellitus without complication, [...] Angina pectoris I20.9 and Vaginal cancer C52 [facility] [id number] [place] [address] 04757- 6997 Aug, [place] [address] [place] [id number] [place] [address] 09560- 6759 Aug, [place] [address] [place] [id number] [place] [address] 21509- 3655 Aug, Vaginal candidiasis B37.3 and Vaginal itching L29.8 [place] [address] [place] [id number] [place] [address] 12650- 6933 Aug, Dysuria R30.0 and Acute cystitis with hematuria N30.01 [place] [address] 32393- 1390 July, [place] [address] [place] [id number] [place] [address] 03437- 5764 July, [place] [address] 43781- 7705 July, [place] [address] 39979- 6481 Jun, [place] [address] 76955- 9206 Jun, [facility] [id number] [place] [address] 59286 -0561 Jun, Right anterior knee pain M25.561 [place] [address] [place] [id number] [place] [address] 55484- 0910 Jun, [facility] [id number] [place] [address] 71672- 9441 Jun, Type 2 diabetes mellitus with diabetic neuropathic arthropathy, 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 [place] [address] [place] [id number] [place] [address] 04129- 2296 May, Acute non-recurrent maxillary sinusitis J01.00 and Acute suppurative otitis media of left ear without spontaneous rupture of tympanic membrane, recurrence not specified H66.002 [facility] [id number] [place] [address] 44151 -9612 May, Viral upper respiratory tract infection J06.9 [place] [address] [place] [address]- 3569 Apr, [facility] [address] 54875- 9825 Apr, Type 2 diabetes mellitus with diabetic [...] index (BMI) of 32.0-32.9 in adult Z68.[address] 90156- 9325 09 Apr, 2017 Type 2 diabetes mellitus without complication, without long- term current use of insulin E11.9 [place] [address] 66242- 3944 02 Apr, 2017 Papule R23.8 and Actinic keratosis L57.0 [facility] [address] 30879 -2752 Mar, Cough R05 ; Encounter for immunization Z23 ; Other viral agents as the cause of diseases classified elsewhere B97.89 and Acute upper respiratory infection, unspecified J06.9 [place] [address] 48713- 5209 14 Jan, 2017 Migraine without status migrainosus, not intractable, unspecified migraine type G43.[address] 53468- 9916 17 Sep, [address] 44214- 8699 13 Sep, 2016 Type 2 diabetes mellitus without complication, without long- term current use of insulin E11.9 ; Dehydration, mild E86.0 and Dyshidrotic eczema L30.1 [place] [address] [place] [id number] [place] [address] 63051- 9851 Sep, [place] [address] [place] [id number] [place] [address] 46197- 3484 Aug, Migraine without status migrainosus, not intractable, unspecified migraine type G43.909 [place] [address] 98891- 2961 July, [place] [address] [place] [id number] [place] [address] 97820- 2220 Jun, Medicare annual wellness visit, subsequent Z00.00 ; Hyperlipidemia E78.5 ; CAD (coronary artery disease) I25.10 and Vaginal cancer C52 [place] [address] [place] [id number] [place] [address] 85456- 9985 Jun, Sciatica M54.30 ; Pain in right hip M25.551 ; Dyshidrotic eczema L30.1 ; Candidiasis of breast B37.89 ; Right anterior knee pain M25.561 ; Hyperlipidemia E78.5 and Encounter for immunization Z23 [place] [address] [place] [id number] [place] [address] 81607- 3526 May, Ganglion cyst of joint of finger of left hand M67.442 [place] [address] [place] [id number] [place] [address] 25801- 3254 May, Migraine without status migrainosus, not intractable, unspecified migraine type G43.909 [place] [address] [place] [address] 32968- 1073 May, [place] [address] 17734- 6800 Apr, Skin lesion of back L98.9 and Encounter for immunization Z23 [place] [address] [place] [id number] [place] [address] 93322- 9114 Mar, Candidal dermatitis B37.2 ; Seborrheic keratoses L82.1 ; Polyneuropathy G62.9 and Dysuria R30.0 [facility] [address] [id number] [address] Mar, Dental examination Z01.20 [facility] [address] [place] [address] 82972- 6080 Mar, Neuritis M79.2 [place] [address] 01622- 5634 Feb, Drug allergy Z88.9 [place] [address] [place] [id number] [place] [address] 52939- 0912 Feb, Dysuria R30.0 [place] [address] [place] [id number] [place] [address] 59493- 4940 Feb, Acute cystitis with hematuria N30.01 [place] [address] [place] [id number] [place] [address] 95111- 2209 Feb, Dysuria R30.0 and Acute cystitis with hematuria N30.01 [place] [address] [place] [address] 87550- 1664 Feb, Angina pectoris I20.9 ; Finger pain, left M79.645 ; 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 ; GERD (gastroesophageal reflux disease) K21.9 ; Pain in right hip M25.551 ; Pain in left hip M25.552 and Encounter for screening mammogram for breast cancer Z12.31 [place] [address] [place] [address] 88018- 6167 Dec, Right hip pain M25.551 [place] [address] [place] [id number] [place] [address] 94150- 2733 Nov, GERD (gastroesophageal reflux disease) K21.9 ; Vaginal cancer C52 ; Pain in right hip M25.551 and Pain in left hip M25.552 [place] [address] [place] [address] 45446- 2069 Oct, Squamous cell carcinoma C80.1 [place] [address] [place] [id number] [place] [address] 14716- 7432 Oct, Skin lesions L98.9 and Encounter for well woman exam Z01.419 [place] [address] [place] [id number] [place] [address] 88882- 8007 Oct, [place] [address] 33328- 3681 Sep, [facility] [place] [id number] [place] [address] 10638 -8042 Aug, Atopic dermatitis, unspecified type L20.9 and Tick bite, initial encounter W57.XXXA [facility] [place] [id number] [place] [address] 75599 -6896 Aug, [place] [address] 92992- 4796 July, Pre-procedural laboratory examination Z01.812 [place] [address] [place] [id number] [place] [address] 07549- 5952 July, Migraine without status migrainosus, not intractable, unspecified migraine type G43.909 ; Barretts esophagus without dysplasia K22.70 ; Sciatic nerve pain, left M54.32 and Localized swelling, mass and lump, head R22.0 [place] [address] [place] [id number] [place] [address] 11536- 9153 May, [place] [address] [place] [id number] [place] [address] 78508- 4996 May, [facility] [place] [id number] [place] [address] 43644 -4759 May, Unspecified fall, initial encounter W19.XXXA ; Unspecified place in unspecified non-institutional (private) residence as the place of occurrence of the external cause Y92.009 ; Mid back pain M54.9 ; Rib pain on right side R07.81 ; Buttock pain M79.1 and Post-traumatic headache, unspecified , not intractable G44.309 [place] [address] [place] [id number] [place] [address] 39441- 8096 10 Apr, 2015 Hypercholesteremia E78.0 ; Chest discomfort R07.89 ; 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 and History of sciatica Z86.69 [place] [address] 85037- 9359 Mar, Calculus of left kidney N20.0 ; Hyperlipidemia E78.5 ; Degeneration disease of medial meniscus, 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 ; Right knee pain M25.561 ; Sciatica M54.30 ; GERD (gastroesophageal reflux disease) K21.9 and 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 [place] [address] 99530- 8436 Mar, [place] [address] 81876- 9228 Mar, [place] [address] 46049- 1280 Mar, [place] [address] 59357- 5045 Mar, Plantar fasciitis M72.2 [place] [address] 26244- 8465 Mar, Degeneration disease of medial meniscus, 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 ; Right knee pain M25.561 ; Sciatica M54.30 ; GERD ( gastroesophageal reflux disease) K21.9 and 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 [place] [address] [place] [id number] [place] [address] 70707- 6245 Feb, [place] [address] 30618- 1887 Feb, Osteopenia M85.80 [place] [address] 77683- 7186 Feb, Screening for malignant neoplasm of breast Z12.39 and Encounter for screening mammogram for malignant neoplasm of breast Z12.31 [facility] [id number] [place] [address] 33745- 7643 Feb, Hip pain M25.[address] 51211- 7900 Feb, [address] 98355- 8558 Feb, Arthralgia of right hip M25.551 ; Sciatica M54.30 ; GERD ( gastroesophageal reflux disease) K21.9 ; 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 ; CAD ( coronary artery disease) I25.10 and Hyperlipidemia 272.4 [facility] [address] [place] [address] 28042 -3835 Jan, Pharyngitis J02.9 ; Body aches R52 ; Cough R05 and Sinusitis J32.[address] 57558- 6020 Nov, Contusion of foot 924.20 and Plantar fasciitis 728.71 [facility] [address] [id number] Oct, Dental examination V72.[address] 39597- 9583 Oct, [address] 02809- 9195 Oct, Coronary artery disease 414.[address] 01913- 4896 Oct, Zoster 053.[address] 11477- 1068 Sep, Pain in joint, ankle and foot 719.47 ; 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.85 ; Cervicalgia 723.1 ; Pain in joint, shoulder region 719.41 ; Coronary artery disease 414.00 and Need for shingles vaccine V04.89 [facility] [address] [address] Sep, Dental examination V72.2 [facility] [address] [address] 2546 Sep, [facility] [address] [address]- 2546 Aug, [facility] [address] [id number] [place] [address] [id number] July, Dental examination V72.2 [facility] [address] [place] [address] 82703- 1766 July, Cough 786.2 [facility] [id number] [place] [address] 17091- 7996 July, Sinusitis 473.9 and Means esophagus 530.85 [facility] [id number] [place] [address] 06728- 3916 Jun, [facility] [address] [address]- 4450 Jun, [facility] [address] [address]- 4566 May, [facility] [address] [address]- 3106 May, [facility] [address] [address]- 0106 May, [facility] [address] [address]- 6696 May, [facility] [address] [address]- 9956 May, [facility] [address] [id number] [address]- 4216 May, [facility] [address] [address]- 7406 May, [facility] [place] [facility] [address] [id number] [place] [address]- 1699 May, [facility] [place] [facility] [address] [id number] [place] 0447 Apr, 2014 [facility] [place] [facility] [address] [id number] [place] [address]- 4104 Apr, [facility] [place] [facility] [address] [id number] [place] [address]- 2674 Apr, [facility] [place] [facility] [address] [id number] [place] [address]- 4651 Mar, [facility] [place] [facility] [address] [id number] [place] [address]- 6991 Mar, [facility] [place] [facility] [address] [id number] [place] [address]- 1116 Mar, [facility] [place] [facility] [address] [id number] [place] [address]- 9824 Mar, [facility] [place] [facility] [address] [id number] [place] [address]- 1084 Feb, [facility] [place] [facility] [address] [id number] [place] [address]- 0444 Feb, [facility] [place] [facility] [address] [id number] [place] [address]- 9167 Feb, [facility] [place] [facility] [address] [id number] [place] [address]- 7471 Feb, [facility] [place] [facility] [address] [id number] [place] [address]- 5122 Feb, [facility] [place] [facility] [address] [id number] [place] 9032 Feb, [facility] [place] [facility] [address] [id number] [place] [address]- 6484 Feb, [facility] [place] [facility] [address] [id number], [place] [address]- 8865 Jan, [facility] [place] [facility] [address] [id number] [place] [address]- 2053 Jan, [facility] [place] [facility] [address] [id number] [place] [address]- 0223 Jan, [facility] [place] [facility] [address] [id number] [place] [address]- 0387 Jan, [facility] [place] [facility] [address] [id number] [place] [address]- 1448 Dec, [facility] [place] [facility] [address] [id number] [place] [address]- 7990 Dec, [facility] [place] [facility] [address] [id number] [place] [address]- 4848 Dec, [facility] [place] [facility] [address] [id number] [place] [address]- 7988 Dec, [facility] [place] [facility] [address] [id number] [place] [address]- 7207 Dec, [facility] [place] [facility] [address] [id number] [place] [address]- 9850 16 Dec, 2013 [facility] [place] [facility] [address] [id number] [place] [address]- 1948 24 Nov, 2013 [facility] [place] [facility] [address] [id number] [place] [address]- 0656 23 Sep, 2013 [facility] [place] [facility] [address] [id number] [place] [address]- 4354 23 Sep, 2013 [facility] [place] [facility] [address] [id number] [place] [address]- 1071 17 Sep, 2013 [facility] [place] [facility] [address] [id number] [place] [address]- 8441 17 Sep, 2013 [facility] [place] [facility] [address] [id number] [place] [address]- 7671 05 Sep, 2013 [facility] [place] [facility] [address] [id number] [place] [address]- 4786 Nov, [facility] [place] [facility] [address] [id number] [place] [address]- 9381 Oct, [facility] [place] [facility] [address] [id number] [place] [address]- 1574 Oct, [facility] [place] [facility] [address] [id number] [place] [address]- 6686 Oct, [facility] [place] [facility] [address] [id number] [place] [address]- 0277 Oct, [facility] [place] [facility] [address] [id number] [place] [address]- 9513 Oct, [facility] [place] [facility] [address] [id number] [place] [address]- 9642 Oct, [facility] [place] [facility] [address] [id number] [place] [address]- 5129 Oct, [facility] [place] [facility] [address] [id number] [place] [address]- 6000 Oct, [facility] [place] [facility] [address] [id number] [place] [address]- 6521 Oct, [facility] [place] [facility] [address] [id number] [place] [address]- 4938 Sep, [facility] [place] [facility] [address] [id number] [place] [address]- 1221 Sep, [facility] [place] [facility] [address] [id number] [place] [address]- 0246 Sep, [facility] [place] [facility] [address] [id number] [place] [address]- 9666 Sep, [facility] [place] [facility] [address] [id number] [place] [address]- 7575 Sep, [facility] [place] [facility] [address] [id number] [place] [address]- 1225 Sep, [facility] [place] [facility] [address] [id number] [place] [address]- 7105 Sep, [facility] [place] [facility] [address] [id number] [place] [address]- 3301 Sep, [facility] [place] [facility] [address] [id number] [place] [address]- 7867 Sep, [facility] [place] [facility] [address] [id number] [place] [address]- 5471 Aug, [facility] [place] [facility] [address] [id number] [place] [address]- 6720 Aug, [facility] [place] [facility] [address] [id number] [place] [address]- 5373 Jun, [facility] [place] [facility] [address] [id number] [place] [address]- 8937 Jun, [facility] [place] [facility] [address] [id number] [place] [address]- 8861 May, [facility] [place] [facility] [address] [id number] [place] [address]- 4795 May, [facility] [place] [facility] [address] [id number] [place] [address]- 1101 Apr, [facility] [place] [facility] [address] [id number] [place] [address]- 0946 Apr, [facility] [place] [facility] [address] [id number] [place] [address]- 1034 Apr, [facility] [place] [facility] [address] [id number] [place] 2209 Apr, [facility] [place] [facility] [address] [id number] [place] [address]- 5321 Feb, [facility] [place] [facility] [address] [id number] [place] 5828 Feb, [facility] [place] [facility] [address] [id number] [place] [address]- 4434 Jan, [facility] [address] [id number] [place] [address]- 8074 Jan, [facility] [address] [id number] [place] [address]- 3147 Nov, [facility] [address] [id number] [place] [address]- 3757 Sep, [facility] [address] [id number] [place] [address]- 3557 Sep, [facility] [address] [id number] [place] [address]- 7788 Aug, [facility] [address] [id number] [place] [address]- 7833 Aug, [facility] [address] [id number] [place] [address]- 4356 Aug, [facility] [address] [id number] [place] [address] July, [facility] [address] [id number] [place] [address] July, [facility] [address] [id number] [place] [address] July, [facility] [address] [id number] [place] [address] May, [facility] [address] [id number] [place] [address] May, [facility] [address] [id number] [place] [address] Jan, [facility] [address] [id number] [place] [address] Jan, [facility] [address] [id number] [place] [address] Jan, [facility] [address] [id number] [address] Jan, [facility] [id number], [place] [address] Jan, [facility] [id number], [place] [address] Jan, [facility] [address] [address] Jan, [facility] [address] [id number], [place] [address] Jan, [facility] [id number], [place] [address] Dec, [facility] [address], [place] [address] Dec, [facility] [address], [place] [address] Aug, [facility] [address] [address] July, [facility] [address] [id number] [address] Jun, [facility] [address], [place] [address] May, [facility] [id number] [address] May, [facility] [id number] [address] May, [facility] [address] [id number], [place] [address] Jun, IMMUNIZATIONS No Known Immunizations SOCIAL HISTORY [...]
--- OUTSIDE RECORDS SUMMARY | 2018-02-18 08:32 | XMS REPORT ---
Author Author LILLIAN REZA [facility] IN [facility] Address [address] [place] [address] Care Team Providers Care Rehabilitation Director Name Role Phone LILLIAN REZA Unavailable PROBLEMS Type Condition ICD9-CM Code XGW80-YW Code Onset Dates Condition Status SNOMED Code Problem Angina pectoris I20.9 Active 575653184 Problem Dyshidrotic eczema L30.1 Active 357804891 Problem Polyneuropathy G62.9 Active 58821064 Problem Diverticulitis K57.92 Active 246918960 Problem Other obesity due to excess calories E66.09 Active 442603145 Problem Body mass index (BMI) of 30.0-30.9 in adult Z68.30 Active 446166833 Problem Type 2 diabetes mellitus with diabetic neuropathic arthropathy, 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 Active 870643326 Problem Anxiety F41.9 Active 23150743 Problem Type 2 diabetes mellitus without complication, without long-term current use of insulin E11.9 Active 376195374 Problem GERD (gastroesophageal reflux disease) K21.9 Active 807205323 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 717501815 Problem CAD (coronary artery disease) I25.10 Active 66957841 Problem Trochanteric bursitis of right hip M70.61 Active 108306636547304 Problem Syndrome X, 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 Active 124509256 Problem Seborrheic keratoses L82.1 Active 191085981 Problem Hyperlipidemia E78.5 Active 03247320 Problem Sciatica of right side M54.31 Active 50278021 Problem Vaginal cancer C52 Active 744154056 ALLERGIES Substance Reaction Event Type Date Status Pentazocine-Naloxone itching Drug Allergy Jun, Active Cipro Unknown Drug Allergy Jun, Active Actifed palpitations Drug Allergy Jun, Active Oxycodone unable to take more than 1 Drug Allergy Jun, Active Morphine Abdominal pain with IV form Drug Allergy Jun, Active ENCOUNTERS Encounter Location Date Diagnosis [facility] [id number] [place] [address] 24756- 6855 Oct, [facility] [id number] [place] [address] 19345- 3943 Sep, Diverticulitis K57.92 [place] [address] 82808- 2302 Sep, [facility] [address] 6[address] Sep, Diarrhea, unspecified type R19.7 [place] [address] 93133- 0702 Sep, [facility] [address] 91935- 8260 Sep, Pain in right hip M25.551 [place] [id number] [place] [address] 30125- 8265 Sep, [facility] [id number] [place] [address] 80633- 1953 Aug, Acute cystitis with hematuria N30.01 [facility] [id number] [place] [address] 15611- 7412 Aug, Type 2 diabetes mellitus without complication, [...] Angina pectoris I20.9 and Vaginal cancer C52 [facility] [id number] [place] [address] 81813- 2254 Aug, [facility] [id number] [place] [address] 00322- 1472 Aug, [facility] [address] 90299- 0473 Aug, Vaginal candidiasis B37.3 and Vaginal itching L29.8 [place] [address] 56241- 1733 Aug, Dysuria R30.0 and Acute cystitis with hematuria N30.01 [facility] [id number] [place] [address] 43144- 3390 July, [place] [address] 17783- 2462 July, [place] [address] 08240- 7926 July, [place] [address] 08580- 4330 Jun, [facility] [id number] [place] [address] 53791- 1856 Jun, [facility] [id number] [place] [address] 92516 -6270 Jun, Right anterior knee pain M25.561 [place] [id number] [place] [address] 02391- 9709 Jun, [facility] [id number] [place] [address] 84306- 2817 Jun, Type 2 diabetes mellitus with diabetic neuropathic arthropathy, 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 [place] [address] 46557- 5750 May, Acute non-recurrent maxillary sinusitis J01.00 and Acute suppurative otitis media of left ear without spontaneous rupture of tympanic membrane, recurrence not specified H66.002 [facility] [address] [place] [address] 10 May, 2017 Viral upper respiratory tract infection J06.9 [place] [address] 18287- 0945 Apr, [place] [address] 93676- 1918 Apr, Type 2 diabetes mellitus with diabetic [...] index (BMI) of 32.0-32.9 in adult Z68.32 [place] [address] 09087- 5810 09 Apr, 2017 Type 2 diabetes mellitus without complication, without long- term current use of insulin E11.9 [place] [address] 63219- 6965 02 Apr, 2017 Papule R23.8 and Actinic keratosis L57.0 [facility] [id number] [place] [address] 63800 -5218 11 Mar, 2017 Cough R05 ; Encounter for immunization Z23 ; Other viral agents as the cause of diseases classified elsewhere B97.89 and Acute upper respiratory infection, unspecified J06.9 [place] [address] 52009- 5057 14 Jan, 2017 Migraine without status migrainosus, not intractable, unspecified migraine type G43.909 [place] [id number] [place] [address] 54951- 5479 17 Sep, 2016 [place] [address] 59903- 9315 Sep, Type 2 diabetes mellitus without complication, without long- term current use of insulin E11.9 ; Dehydration, mild E86.0 and Dyshidrotic eczema L30.1 [place] [id number] [place] [address] 21832- 2966 Sep, [place] [address] 51042- 2482 Aug, Migraine without status migrainosus, not intractable, unspecified migraine type G43.909 [place] [address] 66590- 2541 July, [place] [address] 69167- 2076 Jun, Medicare annual wellness visit, subsequent Z00.00 ; Hyperlipidemia E78.5 ; CAD (coronary artery disease) I25.10 and Vaginal cancer C52 [address] 57489- 7934 Jun, Sciatica M54.30 ; Pain in right hip M25.551 ; Dyshidrotic eczema L30.1 ; Candidiasis of breast B37.89 ; Right anterior knee pain M25.561 ; Hyperlipidemia E78.5 and Encounter for immunization Z23 [address] 69180- 8271 May, Ganglion cyst of joint of finger of left hand M67.442 [place] [id number] [place] [address] 21034- 9927 May, Migraine without status migrainosus, not intractable, unspecified migraine type G43.909 [place] [address] 68466- 8351 May, [address] 17432- 7333 09 Apr, 2016 Skin lesion of back L98.9 and Encounter for immunization Z23 [address] [id number] [address] Mar, Candidal dermatitis B37.2 ; Seborrheic keratoses L82.1 ; Polyneuropathy G62.9 and Dysuria R30.0 [facility] [address] [id number] Mar, Dental examination Z01.20 [place] [address] 93190- 1906 Mar, Neuritis M79.2 [place] [id number] [place] [address] 22872- 8535 Feb, Drug allergy Z88.9 [place] [id number] [place] [address] 97536- 9589 Feb, Dysuria R30.0 [place] [id number] [place] [address] 04365- 6645 Feb, Acute cystitis with hematuria N30.01 [place] [id number] [place] [address] 26738- 5422 Feb, Dysuria R30.0 and Acute cystitis with hematuria N30.01 [place] [id number] [place] [address] 59147- 7599 Feb, Angina pectoris I20.9 ; Finger pain, left M79.645 ; 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 ; GERD (gastroesophageal reflux disease) K21.9 ; Pain in right hip M25.551 ; Pain in left hip M25.552 and Encounter for screening mammogram for breast cancer Z12.31 [place] [id number] [place] [address] 29928- 1736 Dec, Right hip pain M25.551 [place] [id number] [place] [address] 62940- 9113 Nov, GERD (gastroesophageal reflux disease) K21.9 ; Vaginal cancer C52 ; Pain in right hip M25.551 and Pain in left hip M25.552 [place] [id number] [place] [address] 53831- 6975 Oct, Squamous cell carcinoma C80.1 [place] [id number] [place] [address] 26695- 9826 Oct, Skin lesions L98.9 and Encounter for well woman exam Z01.[address] 98112- 0963 Oct, [place] [id number] [place] [address] 83396- 7464 Sep, [facility] WALK IN [address] 93585 -8471 Aug, Atopic dermatitis, unspecified type L20.9 and Tick bite, initial encounter W57.XXXA [facility] IN [address] 85126 -6237 Aug, [place] [id number] [place] [address] 73478- 8673 July, Pre-procedural laboratory examination Z01.812 [place] [id number] [place] [address] 59409- 1173 July, Migraine without status migrainosus, not intractable, unspecified migraine type G43.909 ; Barretts esophagus without dysplasia K22.70 ; Sciatic nerve pain, left M54.32 and Localized swelling, mass and lump, head R22.0 [place] [id number] [place] [address] 27724- 0115 May, [address] 38476- 0933 May, [facility] [address] [place] [id number] [place] [address] 30541 -0323 May, Unspecified fall, initial encounter W19.XXXA ; Unspecified place in unspecified non-institutional (private) residence as the place of occurrence of the external cause Y92.009 ; Mid back pain M54.9 ; Rib pain on right side R07.81 ; Buttock pain M79.1 and Post-traumatic headache, unspecified , not intractable G44.309 [place] [address] 73476- 5599 10 Apr, 2015 Hypercholesteremia E78.0 ; Chest discomfort R07.89 ; 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 and History of sciatica Z86.69 [place] [address] 63257- 0016 Mar, Calculus of left kidney N20.0 ; Hyperlipidemia E78.5 ; Degeneration disease of medial meniscus, 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 ; Right knee pain M25.561 ; Sciatica M54.30 ; GERD (gastroesophageal reflux disease) K21.9 and 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 41759- 2997 Mar, [place] [address] 98922- 5426 Mar, [place] [address] 98358- 9783 Mar, [place] [address] 06950- 7367 Mar, Plantar fasciitis M72.2 [place] [address] 65615- 5229 Mar, Degeneration disease of medial meniscus, 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 ; Right knee pain M25.561 ; Sciatica M54.30 ; GERD ( gastroesophageal reflux disease) K21.9 and 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 [place] [address] 49288- 1157 Feb, [place] [address] 38073- 5360 Feb, Osteopenia M85.80 [address] [place] [address]- 5589 15 Feb, 2015 Screening for malignant neoplasm of breast Z12.39 and Encounter for screening mammogram for malignant neoplasm of breast Z12.31 [place] [address] 11335- 0216 Feb, Hip pain M25.[address] 93728- 9040 Feb, [place] [address] 46584- 2271 Feb, Arthralgia of right hip M25.551 ; Sciatica M54.30 ; GERD ( gastroesophageal reflux disease) K21.9 ; 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 ; CAD ( coronary artery disease) I25.10 and Hyperlipidemia 272.4 [facility] IN [facility] [address] [address]52 -0335 Jan, Pharyngitis J02.9 ; Body aches R52 ; Cough R05 and Sinusitis J32.[address] 48017- 5572 Nov, Contusion of foot 924.20 and Plantar fasciitis 728.71 [facility] [address] [id number] Oct, Dental examination V72.[address] 85292- 2821 Oct, [place] [address] 91370- 6939 Oct, Coronary artery disease 414.[address] 41702- 7320 Oct, Zoster 053.9 [place] [address] 16016- 3501 Sep, Pain in joint, ankle and foot 719.47 ; 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.85 ; Cervicalgia 723.1 ; Pain in joint, shoulder region 719.41 ; Coronary artery disease 414.00 and Need for shingles vaccine V04.89 [facility] [id number] [id number] Sep, Dental examination V72.2 [facility] [id number] [place] [address] 26492 2546 Sep, [facility] [id number] [place] [address] 65680 2546 Aug, [facility] [id number] [place] [address] [id number] July, Dental examination V72.2 [facility] [id number] [place] [address] 49863- 7376 July, Cough 786.2 [facility] [id number] [place] [address] 54963- 2436 July, Sinusitis 473.9 and Means esophagus 530.85 [facility] [id number] [place] [address] 04159- 7656 Jun, [facility] [id number] [place] [address] 83671- 3296 Jun, [facility] [id number] [address]- 0156 May, [facility] [id number] [place] [address] 34622- 5196 May, [facility] [id number] [place] [address] 50576- 5976 May, [facility] [id number] [place] [address] 41253- 1256 May, [facility] [address] [address]- 0096 May, [facility] [id number] [place] [address] 55637- 0449 May, [facility] [place] [facility] [address] [id number] [place] [address]- 8329 May, [facility] [place] [facility] [address] [id number] [place] [address]- 5333 May, [facility] [place] [facility] [address] [id number] [place] [address]- 7958 Apr, [facility] [place] [facility] [address] [id number] [place] [address]- 0102 Apr, [facility] [place] [facility] [address] [id number] [place] [address]- 9181 Apr, [facility] [place] [facility] [address] [id number] [place] [address]- 4201 Mar, [facility] [place] [facility] [address] [id number] [place] [address]- 8279 Mar, [facility] [place] [facility] [address] [id number] [place] [address]- 3029 Mar, [facility] [place] [facility] [address] [id number] [place] [address]- 2643 Mar, [facility] [place] [facility] [address] [id number] [place] [address]- 4887 Feb, [facility] [place] [facility] [address] [id number] [place] [address]- 7631 Feb, [facility] [place] [facility] [address] [id number] [place] [address]- 7065 Feb, [facility] [place] [facility] [address] [id number] [place] 6738 Feb, [facility] [place] [facility] [address] [id number] [place] [address]- 0134 Feb, [facility] [place] [facility] [address] [id number] [place] [address]- 6560 Feb, [facility] [place] [facility] [address] [id number] [place] [address]- 4897 Feb, [facility] [place] [facility] [address] [id number] [place] [address]- 7942 Jan, [facility] [place] [facility] [address] [id number] [place] [address]- 9785 Jan, [facility] [place] [facility] [address] [id number] [place] [address]- 9335 Jan, [facility] [place] [facility] [address] [id number] [place] [address]- 0167 Jan, [facility] [place] [facility] [address] [id number] [place] [address]- 8508 Dec, [facility] [place] [facility] [address] [id number] [place] [address]- 9391 Dec, [facility] [place] [facility] [address] [id number] [place] [address]- 9029 Dec, [facility] [place] [facility] [address] [id number] [place] [address]- 6581 Dec, [facility] [place] [facility] [address] [id number] [place] [address]- 9268 Dec, [facility] [place] [facility] [address] [id number] [place] [address]- 9115 Dec, [facility] [place] [facility] [address] [id number] [place] [address]- 0062 24 Nov, 2013 [facility] [place] [facility] [address] [id number] [place] [address]- 7368 23 Nov, 2013 [facility] [place] [facility] [address] [id number] [place] [address]- 7047 23 Nov, 2013 [facility] [place] [facility] [address] [id number] [place] [address]- 9799 17 Nov, 2013 [facility] [place] [facility] [address] [id number] [place] [address]- 5481 Nov, [facility] [place] [facility] [address] [id number] [place] [address]- 1930 Nov, [facility] [place] [facility] [address] [id number] [place] [address]- 8391 Nov, [facility] [place] [facility] [address] [id number] [place] [address]- 8020 Oct, [facility] [place] [facility] [address] [id number] [place] [address]- 1379 Oct, [facility] [place] [facility] [address] [id number] [place] [address]- 6861 Oct, [facility] [place] [facility] [address] [id number] [place] [address]- 1760 Oct, [facility] [place] [facility] [address] [id number] [place] [address]- 8105 Oct, [facility] [place] [facility] [address] [id number] [place] [address]- 8620 Oct, [facility] [place] [facility] [address] [id number] [place] [address]- 5343 Oct, [facility] [place] [facility] [address] [id number] [place] [address]- 5715 Oct, [facility] [place] [facility] [address] [id number] [place] [address]- 2376 Oct, [facility] [place] [facility] [address] [id number] [place] [address]- 3107 Sep, [facility] [place] [facility] [address] [id number] [place] [address]- 7721 Sep, [facility] [place] [facility] [address] [id number] [place] [address]- 2319 Sep, [facility] [place] [facility] [address] [id number] [place] [address]- 6576 Sep, [facility] [place] [facility] [address] [id number] [place] [address]- 8846 Sep, [facility] [place] [facility] [address] [id number] [place] [address]- 2996 Sep, [facility] [place] [facility] [address] [id number] [place] [address]- 9549 Sep, [facility] [place] [facility] [address] [id number] [place] [address]- 3414 Sep, [facility] [place] [facility] [address] [id number] [place] [address]- 6643 Sep, [facility] [place] [facility] [address] [id number] [place] [address]- 1570 Aug, [facility] [place] [facility] [address] [id number] [place] [address]- 7157 Aug, [facility] [place] [facility] [address] [id number] [place] [address]- 5443 Jun, [facility] [place] [facility] [address] [id number] [place] [address]- 4659 Jun, [facility] [place] [facility] [address] [id number] [place] [address]- 8687 May, [facility] [place] [facility] [address] [id number] [place] [address]- 6835 May, [facility] [place] [facility] [address] [id number] [place] [address]- 1187 Apr, [facility] [place] [facility] [address] [id number] [place] [address]- 2898 Apr, [facility] [place] [facility] [address] [id number] [place] [address]- 3362 Apr, [facility] [place] [facility] [address] [id number] [place] 6997 Apr, [facility] [place] [facility] [address] [id number] [place] [address]- 5938 Feb, [facility] [place] [facility] [address] [id number] [place] [address]- 1233 Feb, [facility] [place] [facility] [address] [id number] [place] [address]- 3261 Jan, [facility] [place] [facility] [address] [id number] [place] [address] 2546 Jan, [facility] [place] [facility] [address] [id number] [place] [address]- 8382 Nov, [facility] [place] [facility] [address] [id number] [place] [address]- 0878 Sep, [facility] [place] [facility] [address] [id number] [place] [address]- 1668 Sep, [facility] [place] [facility] [address] [id number] [place] [address]- 8127 Aug, [facility] [place] [facility] [address] [id number] [place] [address]- 7955 Aug, [facility] [place] [facility] [address] [id number] [place] [address]- 0925 Aug, [facility] [place] [facility] [address] [id number] [place] [address]- 9051 July, [facility] [place] [facility] [address] [id number] [place] [address]- 7636 July, [facility] [place] [facility] [address] [id number] [place] [address]- 2546 July, [facility] [place] [facility] [address] [id number] [place] [address] May, [facility] [place] [facility] [address] [id number] [place] [address] May, [facility] [place] [facility] [address] [id number] [place] [address] Jan, [facility] [place] [facility] [address] [id number] [place] [address] Jan, [facility] [address] [facility] [id number], [place] [address] Jan, [facility] [address] [facility] [id number], [place] [address] Jan, [facility] [address] [id number], [place] [address] Jan, [facility] [address] [facility] [id number], [place] [address] Jan, [facility] [address] [facility] [id number][place] [address] Jan, [facility] [address] [facility] [id number] [address] Jan, [facility] [id number], [place] [address] Dec, [facility] [address] [facility] [id number], [place] [address] Dec, [facility] [address] [id number], [place] [address] Aug, [facility] [address] [id number], [place] [address] July, [facility] [id number], [place] [address] Jun, [facility] [address] [facility] [id number], [place] [address] May, [facility] [address] [facility] [id number], [place] [address] May, [facility] [address] [facility] [id number], [place] [address] May, [facility] [address] [id number] [address] Jun, IMMUNIZATIONS No Known Immunizations SOCIAL HISTORY Never Assessed REASON FOR VISIT rt knee pain for 2 weeks. getting worse. dinies any injury. [email or web address] PLAN OF CARE Activity Details Follow Up call orthopedic doctor Saturday morning Reason: VITAL SIGNS Height 68 in 2017-06-28 Weight 208.4 lbs 2017-06-28 Temperature 98.4 degrees Fahrenheit 2017-06-28 Heart Rate 86 bpm 2017-06-28 Respiratory Rate 20 2017-06-28 BMI 31.68 kg/m2 2017-06-28 Blood pressure systolic 128 mmHg 2017-06-28 Blood pressure diastolic 80 mmHg 2017-06-28 MEDICATIONS Medication Instructions Dosage Frequency Start Date End Date Duration Status Glucocard Expression Test 1 subcutaneously 2 times a day test 2 times per day 12h July, 90 days Active [place] 3-6-9 Not-Taking Cetirizine HCl Not-Taking Calcium Magnesium Not-Taking Cyclobenzaprine HCl 10 mg 1 tablet Active Centrum Silver 50+Women - Not-Taking Pravastatin Sodium 20 MG Orally Once a day 1 tablet 24h Oct, Active B Complex Orally Once a day 24h Not-Taking Melatonin 5 MG Orally Once a day 1 tablet at bedtime as needed with food 24h Not-Taking Triamcinolone Acetonide 0.1 % Externally Twice a day prn apply thin layer to hands Jun, 10 days Not-Taking Metformin HCl 500 mg Orally Once a day with evening meal 1 tablet with meals July, Active Augmentin 875-125 MG Orally every 12 hrs 1 tablet 12h May, Jun, 10 day(s) Active Nitrostat 0.4 MG DISSOLVE ONE TABLET SUBLINGUALLY NEEDED FOR CHEST PAIN ; MAY REPEAT TWO TIMES EVERY 5 MINUTES THEN GO TO ER Active Cinnamon Orally 2 times a day 12h Not-Taking Lyrica 50 mg Orally Once a day 1 capsule 24h Mar, 21 days Not- Taking Pantoprazole Sodium 40 MG TAKE ONE TABLET BY MOUTH ONCE DAILY 30 Active Vitamin D3 Ultra Strength 5000 UNIT Orally twice a day 1 capsule 12h Not-Taking Cough Syrup Not-Taking HydrOXYzine HCl 25 MG Orally every 8 hrs 1 tablet as needed 8h Oct, 90 days Active Percocet 5-325 MG Orally 2 times a day as needed 1 tablet as needed Jan, 28 days Active Carafate 1 GM TAKE ONE TABLET BY MOUTH FOUR TIMES DAILY 30 Not- Taking RESULTS No Results PROCEDURES Procedure Date Ordered Result Body Site [facility] VISIT ESTABLISHED PATIENT June 28, 2017 INSTRUCTIONS MEDICATIONS ADMINISTERED No Known Medications [...]
--- OUTSIDE RECORDS SUMMARY | 2018-02-18 08:33 | XMS REPORT ---
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 Name Role Phone PECKNIRAJ HoustonELE Unavailable PROBLEMS Type Condition ICD9-CM Code KLM38-KV Code Onset Dates Condition Status SNOMED Code Problem Vaginal cancer C52 Active 420410065 Problem Polyneuropathy G62.9 Active 42502884 Problem Angina pectoris I20.9 Active 096696353 Problem Other obesity due to excess calories E66.09 Active 364338395 Problem Anxiety F41.9 Active 59541544 Problem Type 2 diabetes mellitus with diabetic neuropathic arthropathy, 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 Active 485723775 Problem Dyshidrotic eczema L30.1 Active 609569771 Problem Type 2 diabetes mellitus without complication, without long-term current use of insulin E11.9 Active 844651411 Problem Body mass index (BMI) of 30.0-30.9 in adult Z68.30 Active 004629331 Problem CAD (coronary artery disease) I25.10 Active 72966451 Problem GERD (gastroesophageal reflux disease) K21.9 Active 449800600 Problem Sciatica of right side M54.31 Active 46840609 Problem Trochanteric bursitis of right hip M70.61 Active 503114019977488 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 536193431 Problem Syndrome X, 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 Active 685792129 Problem Seborrheic keratoses L82.1 Active 103206255 Problem Hyperlipidemia E78.5 Active 47123293 ALLERGIES Substance Reaction Event Type Date Status Pentazocine-Naloxone itching Drug Allergy May, Active Cipro Unknown Drug Allergy May, Active Actifed palpitations Drug Allergy May, Active Oxycodone unable to take more than 1 Drug Allergy May, Active Morphine Abdominal pain with IV form Drug Allergy May, Active ENCOUNTERS Encounter Location Date Diagnosis [facility] [address], [place] [address] Oct, [facility] [id number] [place] [address] 91559 -3300 Sep, Diarrhea, unspecified type R19.7 [facility] [address] [place] [address] 68906- 2637 Sep, [facility] [id number] [place] [address] 59787- 9902 Sep, Pain in right hip M25.551 [place] [id number] [place] [address] 87901- 5081 Sep, [facility] [id number] [place] [address] 75549- 3762 Aug, Acute cystitis with hematuria N30.01 [place] [id number] [place] [address] 00666- 4788 Aug, Type 2 diabetes mellitus without complication, [...] Angina pectoris I20.9 and Vaginal cancer C52 [facility] [address], [place] [address] Aug, [place] [id number] [place] [address] 49155- 4469 Aug, [facility] [address] [place] [address] 69423- 6944 Aug, Vaginal candidiasis B37.3 and Vaginal itching L29.8 [place] [id number] [place] [address] 77432- 6838 Aug, Dysuria R30.0 and Acute cystitis with hematuria N30.01 [facility] [id number] [place] [address] 05278- 5240 July, [facility] [id number] [place] [address] 14387- 8907 July, [facility] [address] 88801- 6622 July, [facility] [id number] [place] [address] 62874- 3623 Jun, [place] [address] 56438- 7350 Jun, [facility] [id number] [place] [address] 11283 -9709 Jun, Right anterior knee pain M25.561 [place] [id number] [place] [address] 88984- 1763 Jun, [place] [id number] [place] [address] 78946- 7077 Jun, Type 2 diabetes mellitus with diabetic neuropathic arthropathy, 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 [place] [id number] [place] [address] 66602- 1116 May, Acute non-recurrent maxillary sinusitis J01.00 and Acute suppurative otitis media of left ear without spontaneous rupture of tympanic membrane, recurrence not specified H66.002 [facility] [id number] [place] [address] 14705 -0878 May, Viral upper respiratory tract infection J06.9 [facility] [id number] [place] [address] 30721- 6001 Apr, [facility] [id number] [place] [address] 24100- 9710 19 Feb, 2018 Type 2 diabetes mellitus [...] index (BMI) of 32.0-32.9 in adult Z68.32 [place] [address] 17812- 3888 09 Apr, 2017 Type 2 diabetes mellitus without complication, without long- term current use of insulin E11.9 [place] [address] 71681- 1260 02 Apr, 2017 Papule R23.8 and Actinic keratosis L57.0 [facility] [id number] [place] [address] 36501 -8100 11 Mar, 2017 Cough R05 ; Encounter for immunization Z23 ; Other viral agents as the cause of diseases classified elsewhere B97.89 and Acute upper respiratory infection, unspecified J06.9 [place] [id number] [place] [address] 96589- 1361 14 Jan, 2017 Migraine without status migrainosus, not intractable, unspecified migraine type G43.909 [place] [id number] [place] [address] 97884- 6969 17 Sep, 2016 [place] [address] 43994- 0750 13 Sep, 2016 Type 2 diabetes mellitus without complication, without long- term current use of insulin E11.9 ; Dehydration, mild E86.0 and Dyshidrotic eczema L30.1 [facility] [id number] [place] [address] 87141- 5108 Sep, [place] [id number] [place] [address] 59417- 3748 Aug, Migraine without status migrainosus, not intractable, unspecified migraine type G43.909 [place] [id number] [place] [address] 89072- 6623 July, [place] [id number] [place] [address] 31919- 4310 Jun, Medicare annual wellness visit, subsequent Z00.00 ; Hyperlipidemia E78.5 ; CAD (coronary artery disease) I25.10 and Vaginal cancer C52 [address] 35791- 0197 Jun, Sciatica M54.30 ; Pain in right hip M25.551 ; Dyshidrotic eczema L30.1 ; Candidiasis of breast B37.89 ; Right anterior knee pain M25.561 ; Hyperlipidemia E78.5 and Encounter for immunization Z23 [place] [address] 48519- 0530 May, Ganglion cyst of joint of finger of left hand M67.442 [place] [address] 57553- 2425 May, Migraine without status migrainosus, not intractable, unspecified migraine type G43.909 [place] [id number] [place] [address] 42070- 8754 May, [place] [address] 82662- 1789 Apr, Skin lesion of back L98.9 and Encounter for immunization Z23 [place] [id number] [place] [address] 43166- 7885 Mar, Candidal dermatitis B37.2 ; Seborrheic keratoses L82.1 ; Polyneuropathy G62.9 and Dysuria R30.0 [facility] [address] [place] [address] [id number] Jose, 2017 Dental examination Z01.20 [place] [id number] [place] [address] 05624- 8518 06 Mar, 2016 Neuritis M79.2 [place] [id number] [place] [address] 51525- 3488 30 Feb, 2016 Drug allergy Z88.9 [place] [id number] [place] [address] 80168- 8824 Feb, Dysuria R30.0 [place] [address] 46519- 3162 Feb, Acute cystitis with hematuria N30.01 [place] [address] 60712- 9129 Feb, Dysuria R30.0 and Acute cystitis with hematuria N30.01 [place] [id number] [place] [address] 74060- 4885 Feb, Angina pectoris I20.9 ; Finger pain, left M79.645 ; 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 ; GERD (gastroesophageal reflux disease) K21.9 ; Pain in right hip M25.551 ; Pain in left hip M25.552 and Encounter for screening mammogram for breast cancer Z12.31 [place] [id number] [place] [address] 68637- 3241 Dec, Right hip pain M25.551 [place] [id number] [place] [address] 07422- 9231 13 Nov, 2015 GERD (gastroesophageal reflux disease) K21.9 ; Vaginal cancer C52 ; Pain in right hip M25.551 and Pain in left hip M25.552 [place] [id number] [place] [address] 06967- 9555 19 Oct, 2015 Squamous cell carcinoma C80.1 [place] [id number] [place] [address] 61386- 6441 11 Oct, 2015 Skin lesions L98.9 and Encounter for well woman exam Z01.419 [place] [id number] [place] [address] 15234- 8779 Oct, [place] [address] 04811- 8276 Sep, [facility] [place] [id number] [place] [address] 54941 -8994 Aug, Atopic dermatitis, unspecified type L20.9 and Tick bite, initial encounter W57.XXXA [facility] [address] [address] -[address] Aug, [place] [address] 23918- 2588 July, Pre-procedural laboratory examination Z01.812 [place] [address] 68329- 6013 July, Migraine without status migrainosus, not intractable, unspecified migraine type G43.909 ; Barretts esophagus without dysplasia K22.70 ; Sciatic nerve pain, left M54.32 and Localized swelling, mass and lump, head R22.[address] 18791- 1681 May, [place] [id number] [place] [address] 45144- 3916 May, [facility] [place] [id number] [place] [address] 67905 -8713 May, Unspecified fall, initial encounter W19.XXXA ; Unspecified place in unspecified non-institutional (private) residence as the place of occurrence of the external cause Y92.009 ; Mid back pain M54.9 ; Rib pain on right side R07.81 ; Buttock pain M79.1 and Post-traumatic headache, unspecified , not intractable G44.309 [place] [id number] [place] [address] 76005- 1772 Apr, Hypercholesteremia E78.0 ; Chest discomfort R07.89 ; 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 and History of sciatica Z86.69 [place] [id number] [place] [address] 86339- 2520 Mar, Hyperlipidemia E78.5 ; Calculus of left kidney N20.0 ; Degeneration disease of medial meniscus, 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 ; Right knee pain M25.561 ; Sciatica M54.30 ; GERD (gastroesophageal reflux disease) K21.9 and 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 [place] [address] 87489- 1386 Mar, [place] [address] 42025- 3577 Mar, [place] [address] 62538- 4267 Mar, [address] 38695- 0065 Mar, Plantar fasciitis M72.[address] 74946- 7312 Mar, Degeneration disease of medial meniscus, 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 ; Right knee pain M25.561 ; Sciatica M54.30 ; GERD ( gastroesophageal reflux disease) K21.9 and 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 [place] [id number] [place] [address] 73145- 8706 Feb, [place] [address] 20290- 3931 Feb, Osteopenia M85.80 [place] [id number] [place] [address] 55248- 9454 Feb, Screening for malignant neoplasm of breast Z12.39 and Encounter for screening mammogram for malignant neoplasm of breast Z12.31 [place] [id number] [place] [address] 24176- 0493 Feb, Hip pain M25.559 [place] [id number] [address]- 4503 Feb, [address] 28447- 9222 Feb, Arthralgia of right hip M25.551 ; Sciatica M54.30 ; GERD ( gastroesophageal reflux disease) K21.9 ; 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 ; CAD ( coronary artery disease) I25.10 and Hyperlipidemia 272.4 [facility] [address] 73283 -9461 Jan, Pharyngitis J02.9 ; Body aches R52 ; Cough R05 and Sinusitis J32.[address] 24787- 1388 Nov, Contusion of foot 924.20 and Plantar fasciitis 728.71 [facility] [address] [id number] Oct, Dental examination V72.[address] 42639- 9099 Oct, [address] 70390- 8579 Oct, Coronary artery disease 414.[address] 16314- 8954 Oct, Zoster 053.[address] 28688- 4881 Sep, Pain in joint, ankle and foot 719.47 ; 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.85 ; Cervicalgia 723.1 ; Pain in joint, shoulder region 719.41 ; Coronary artery disease 414.00 and Need for shingles vaccine V04.89 [facility] [id number] [place] [address] [id number] Sep, Dental examination V72.2 [place] [address] 53877- 6866 Sep, [facility] [address], [place] [address]- 1125 Aug, [facility] [address] [address] July, Dental examination V72.2 [facility] [id number] [place] [address] 43621- 3578 July, Cough 786.2 [facility] [id number] [place] [address] 050992- 8622 July, Sinusitis 473.9 and Means esophagus 530.85 [facility] [id number] [place] [address] 78015- 3146 Jun, [facility] [id number] [place] [address] 72620- 1910 Jun, [facility] [id number] [place] [address] 44226- 3340 May, [facility] [address], [place] [address]- 7708 May, [facility] [id number] [place] [address] 81270- 1089 May, [facility] [address], [place] [address]- 0556 May, [facility] [address], [place] [address]- 8146 May, [facility] [id number] [address]- 2208 May, [facility] [id number] [place] [address] [id number]- 3521 May, [facility] [id number] 4451 May, [facility] [address] [place] [address] 75063- 1527 Apr, [facility] [place] [facility] [address] [id number] [place] [address]- 1412 Apr, [facility] [place] [facility] [address] [id number] [place] [address]- 7270 Apr, [facility] [place] [facility] [address] [id number] [place] [address]- 0491 Mar, [facility] [place] [facility] [address] [id number] [place] [address]- 8768 Mar, [facility] [place] [facility] [address] [id number] [place] [address]- 9873 Mar, [facility] [place] [facility] [address] [id number] [place] [address]- 1017 Mar, [facility] [place] [facility] [address] [id number] [place] [address]- 9304 Feb, [facility] [place] [facility] [address] [id number] [place] [address]- 0733 Feb, [facility] [place] [facility] [address] [id number] [place] [address]- 3020 Feb, [facility] [place] [facility] [address] [id number] [place] [address]- 3402 Feb, [facility] [place] [facility] [address] [id number] [place] [address]- 1876 Feb, [facility] [place] [facility] [address] [id number] [place] [address]- 3209 Feb, [facility] [place] [facility] [address] [id number] [place] [address]- 0862 Feb, [facility] [place] [facility] [address] [id number] [place] [address]- 8950 Jan, [facility] [place] [facility] [address] [id number] [place] 9951 Jan, [facility] [place] [facility] [address] [id number] [place] [address]- 6104 Jan, [facility] [place] [facility] [address] [id number] [place] [address]- 5677 Jan, [facility] [place] [facility] [address] [id number] [place] [address]- 5843 Dec, [facility] [place] [facility] [address] [id number] [place] [address]- 6288 Dec, [facility] [place] [facility] [address] [id number] [place] [address]- 1494 Dec, [facility] [place] [facility] [address] [id number] [place] [address]- 2955 Dec, [facility] [place] [facility] [address] [id number] [place] [address]- 2545 Dec, [facility] [place] [facility] [address] [id number] [place] [address]- 4523 Dec, [facility] [place] [facility] [address] [id number] [place] [address]- 8061 24 Nov, 2013 [facility] [place] [facility] [address] [id number] [place] [address]- 4264 23 Nov, 2013 [facility] [place] [facility] [address] [id number] [place] [address]- 4434 23 Nov, 2013 [facility] [place] [facility] [address] [id number] [place] [address]- 2544 17 Nov, 2013 [facility] [place] [facility] [address] [id number] [place] [address]- 2542 17 Nov, 2013 [facility] [place] [facility] [address] [id number] [place] [address]- 2463 05 Nov, 2013 [facility] [place] [facility] [address] [id number] [place] [address]- 1067 05 Nov, 2013 [facility] [place] [facility] [address] [id number] [place] [address]- 8440 Oct, [facility] [place] [facility] [address] [id number] [place] [address]- 0130 Oct, [facility] [place] [facility] [address] [id number] [place] [address]- 9175 Oct, [facility] [place] [facility] [address] [id number] [place] [address]- 8141 Oct, [facility] [place] [facility] [address] [id number] [place] [address]- 2545 Oct, [facility] [place] [facility] [address] [id number] [place] [address]- 7442 Oct, [facility] [place] [facility] [address] [id number] [place] [address]- 0216 Oct, [facility] [place] [facility] [address] [id number] [place] [address]- 3601 Oct, [facility] [place] [facility] [address] [id number] [place] [address]- 5540 Oct, [facility] [place] [facility] [address] [id number] [place] [address]- 8235 Sep, [facility] [place] [facility] [address] [id number] [place] [address]- 7691 Sep, [facility] [place] [facility] [address] [id number] [place] [address]- 0315 Sep, [facility] [place] [facility] [address] [id number] [place] [address]- 4996 Sep, [facility] [place] [facility] [address] [id number] [place] [address]- 7470 Sep, [facility] [place] [facility] [address] [id number] [place] [address]- 8938 Sep, [facility] [place] [facility] [address] [id number] [place] [address]- 9475 Sep, [facility] [place] [facility] [address] [id number] [place] [address]- 5910 Sep, [facility] [place] [facility] [address] [id number] [place] [address]- 7070 Sep, [facility] [place] [facility] [address] [id number] [place] [address]- 1351 Aug, [facility] [place] [facility] [address] [id number] [place] [address]- 3690 Aug, [facility] [place] [facility] [address] [id number] [place] [address]- 8063 Jun, [facility] [place] [facility] [address] [id number] [place] [address]- 2334 Jun, [facility] [place] [facility] [address] [id number] [place] [address]- 7966 May, [facility] [place] [facility] [address] [id number] [place] [address]- 5200 May, [facility] [place] [facility] [address] [id number] [place] [address]- 9039 Apr, [facility] [place] [facility] [address] [id number] [place] 5452 Apr, [facility] [place] [facility] [address] [id number] [place] [address]- 8391 Apr, [facility] [place] [facility] [address] [id number] [place] [address]- 3691 Apr, [facility] [place] [facility] [address] [id number] [place] [address]- 7956 Feb, [facility] [place] [facility] [address] [id number] [place] [address]- 8187 Feb, [facility] [place] [facility] [address] [id number] [place] [address]- 4720 Jan, [facility] [place] [facility] [address] [id number] [place] [address]- 5275 Jan, [facility] [place] [facility] [address] [id number] [place] [address]- 8808 Nov, [facility] [address] [id number] [place] [address]- 8508 Sep, [facility] [address] [id number] [place] [address]- 6767 Sep, [facility] [address] [id number] [place] [address] Aug, [facility] [address] [id number] [place] [address] Aug, [facility] [address] [id number] [place] [address] Aug, [facility] [address] [id number] [place] [address] July, [facility] [address] [id number] [place] [address] July, [facility] [address] [id number] [place] [address] July, [facility] [address] [id number] [place] [address] May, [facility] [address] [id number] [place] [address] May, [facility] [address] [id number] [place] [address] Jan, [facility] [place] [facility] [address] [id number] [place] [address] Jan, [facility] [place] [facility] [address] [id number] [place] [address] Jan, [facility] [place] [facility] [address] [id number] [place] [address] Jan, [facility] [address] [id number], [place] [address] Jan, [facility] [id number] [place] [address] Jan, [facility] [id number], [place] [address] Jan, [facility] [id number], [place] [address] Jan, [facility] [id number], [place] [address] Dec, [facility] [id number], [place] [address] Dec, [facility] [id number], [place] [address] Aug, [facility] [address] [id number] [address] July, [facility] [id number], [place] [address] Jun, [facility] [id number], [place] [address] May, [facility] [id number] [place] [address] May, [facility] [address], [place] [address] May, [facility] [address], [place] [address] Jun, IMMUNIZATIONS No Known Immunizations SOCIAL HISTORY Never Assessed REASON FOR VISIT Cough--tjanssenMA, --son was sick previously and started zpak which helped. , -- went to walk in, got medication. Seemed to get better at first but now worse. , --head pain along left side, ear pain in left side, hurts on the left side of throat PLAN OF CARE Activity Details Follow Up prn, 3 Months Reason: VITAL SIGNS Height 68 in 2017-06-20 Weight 206.7 lbs 2017-06-20 Temperature 98.0 degrees Fahrenheit 2017-06-20 Heart Rate 88 bpm 2017-06-20 Respiratory Rate 20 2017-06-20 BMI 31.43 kg/m2 2017-06-20 Blood pressure systolic 136 mmHg 2017-06-20 Blood pressure diastolic 80 mmHg 2017-06-20 MEDICATIONS Medication Instructions Dosage Frequency Start Date End Date Duration Status Centrum Silver 50+Women - Active B Complex Orally Once a day 24h Active Nitrostat 0.4 MG DISSOLVE ONE TABLET SUBLINGUALLY NEEDED FOR CHEST PAIN ; MAY REPEAT TWO TIMES EVERY 5 MINUTES THEN GO TO ER Active Vitamin D3 Ultra Strength 5000 UNIT Orally twice a day 1 capsule 12h Active Cyclobenzaprine HCl 10 mg 1 tablet Active Glucocard Expression Test 1 subcutaneously 2 times a day test 2 times per day 12h July, 90 days Active Pravastatin Sodium 20 MG Orally Once a day 1 tablet 24h 07 Oct, 2014 Active Cinnamon Orally 2 times a day 12h Active Triamcinolone Acetonide 0.1 % Externally Twice a day prn apply thin layer to hands Jun, 10 days Not-Taking Augmentin 875-125 MG Orally every 12 hrs 1 tablet 12h May, Jun, 10 day(s) Active Cough Syrup Not-Taking Cetirizine HCl Active Metformin HCl 500 mg Orally Once a day with evening meal 1 tablet with meals July, Active Percocet 5-325 MG Orally 2 times a day as needed 1 tablet as needed Jan, 28 days Active Lyrica 50 mg Orally Once a day 1 capsule 24h 24 Mar, 2016 21 days Not- Taking Pantoprazole Sodium 40 MG TAKE ONE TABLET BY MOUTH ONCE DAILY 30 Active Calcium Magnesium Active Carafate 1 GM TAKE ONE TABLET BY MOUTH FOUR TIMES DAILY 30 Not- Taking [place] 3-6-9 Active HydrOXYzine HCl 25 MG Orally every 8 hrs 1 tablet as needed 8h Oct, 90 days Active Melatonin 5 MG Orally Once a day 1 tablet at bedtime as needed with food 24h Not-Taking RESULTS No Results PROCEDURES Procedure Date Ordered Result Body Site [facility] VISIT ESTABLISHED PATIENT June 20, 2017 INSTRUCTIONS MEDICATIONS ADMINISTERED No Known [...]
--- OUTSIDE RECORDS SUMMARY | 2018-02-18 08:38 | XMS REPORT | Continuity of Care Document ---
Author Author [facility] Address Unknown Phone Unavailable Allergies [...] Allergy 05/27/2012 Yes No Allergy Information Available [id number] Drug Allergy Unknown N/A 2013 Yes hydrocodone [id number] Drug Allergy Unknown N/A 11/22/2014 Yes morphine [id number] Drug Allergy Unknown N/A 11/22/2014 Yes pseudoephedrine [id number] Drug Allergy Unknown N/A 11/22/2014 Yes triprolidine [id number] Drug Allergy Unknown N/A 11/22/2014 Yes ciprofloxacin [id number] Drug Allergy Moderate LEG CRAMPS 03/22/2016 Medications [...] CUMMINS APRN 461.8 ACUTE PANSINUSITIS 07/05/2008 ASHER POWER BALLAST MACHINE OPERATOR, DONAVON R 461.8 ACUTE PANSINUSITIS 07/05/2008 SHANTE AGUIAR, ANMOL Shi 461.8 ACUTE PANSINUSITIS 07/05/2008 LEILANI HOLLINGSWORTH MD 461.8 ACUTE PANSINUSITIS 07/05/2008 WADE SOPHIE THOMPSON K 461.8 ACUTE PANSINUSITIS 07/05/2008 ASHER POWER BALLAST MACHINE OPERATOR, DONAVON R 461.8 ACUTE PANSINUSITIS 07/05/2008 SOPHIE WADE DO K 461.8 ACUTE PANSINUSITIS 07/05/2008 ASHER POWER BALLAST MACHINE OPERATOR, DONAVON R 461.8 ACUTE PANSINUSITIS 07/05/2008 ASHER POWER BALLAST MACHINE OPERATOR, DONAVON R 461.8 ACUTE PANSINUSITIS 07/05/2008 UDAY AGUIAR, DANA A 461.8 ACUTE PANSINUSITIS 07/05/2008 SOPHIE WADE DO K 461.8 ACUTE PANSINUSITIS 07/05/2008 ASHER POWER BALLAST MACHINE OPERATOR, DONAVON R 461.8 ACUTE PANSINUSITIS 07/05/2008 ASHER POWER BALLAST MACHINE OPERATOR, DONAVON R 461.8 ACUTE PANSINUSITIS 07/05/2008 ASHER POWER BALLAST MACHINE OPERATOR, DONAVON R 461.8 ACUTE PANSINUSITIS 06/04/2011 [...] 726.73 PLANTAR CALCANEAL SPUR RIGHT 06/04/2011 ASHER POWER BALLAST MACHINE OPERATOR, DONAVON R 719.46 joint pain, localized in the knee 06/04/2011 ASHER POWER BALLAST MACHINE OPERATOR, DONAVON R 726.73 PLANTAR CALCANEAL SPUR RIGHT 06/04/2011 ASHER POWER BALLAST MACHINE OPERATOR, DONAVON R 719.46 joint pain, localized in the knee 06/04/2011 ASHER POWER BALLAST MACHINE OPERATOR, DONAVON R 726.73 PLANTAR CALCANEAL SPUR RIGHT 06/04/2011 ASHER POWER BALLAST MACHINE OPERATOR, DONAVON R 719.46 joint pain, localized in the knee 06/04/2011 ASHRE POWER BALLAST MACHINE OPERATOR, DONAVON R 726.73 PLANTAR CALCANEAL SPUR [...] IN STRIKING AGAINST OTHER OBJECT 06/26/2011 ASHER POWER BALLAST MACHINE OPERATOR, DONAVON R E888.1 ACCIDENTAL FALL RESULTING IN STRIKING AGAINST OTHER OBJECT 06/26/2011 ASHER POWER BALLAST MACHINE OPERATOR, DONAVON R E888.1 ACCIDENTAL FALL RESULTING IN STRIKING AGAINST OTHER OBJECT 06/26/2011 UDAY POWER BALLAST MACHINE OPERATOR, DANA A E888.1 ACCIDENTAL FALL RESULTING IN STRIKING AGAINST OTHER OBJECT 06/26/2011 WADE DO, SOPHIE K E888.1 ACCIDENTAL FALL RESULTING IN STRIKING AGAINST OTHER OBJECT 06/26/2011 ASHER POWER BALLAST MACHINE OPERATOR, DONAVON R E888.1 ACCIDENTAL FALL RESULTING IN STRIKING AGAINST OTHER OBJECT 06/26/2011 ASHER POWER BALLAST MACHINE OPERATOR, DONAVON R E888.1 ACCIDENTAL FALL RESULTING IN STRIKING AGAINST OTHER OBJECT 06/26/2011 ASHER POWER BALLAST MACHINE OPERATOR, DONAVON R E888.1 ACCIDENTAL FALL RESULTING [...] DO K 845.10 SPRAIN/STRAIN FOOT 09/18/2011 SOPHIE AWDE DO K 845.10 SPRAIN/STRAIN FOOT 09/18/2011 845.10 [...] K 599.0 URINARY TRACT INFECTION 01/14/2012 ASHER POWER BALLAST MACHINE OPERATOR, DONAVON R 599.0 URINARY TRACT INFECTION 01/14/2012 ASHER POWER BALLAST MACHINE OPERATOR, DONAVON R 599.0 URINARY TRACT INFECTION 01/14/2012 UDAY POWER BALLAST MACHINE OPERATOR, DANA A 599.0 URINARY TRACT INFECTION 01/14/2012 WADE DO, SOPHIE K 599.0 URINARY TRACT INFECTION 01/14/2012 ASHER POWER BALLAST MACHINE OPERATOR, DONAVON R 599.0 URINARY TRACT INFECTION 01/14/2012 ASHER POWER BALLAST MACHINE OPERATOR, DONAVON R 599.0 URINARY TRACT INFECTION 01/14/2012 ASHER POWER BALLAST MACHINE OPERATOR, DONAVON R 599.0 URINARY TRACT INFECTION [...] DO, SOPHIE K 786.2 COUGH 02/06/2012 PLACIDO POWER BALLAST MACHINE OPERATOR, DONG R 466.0 BRONCHITIS, ACUTE 02/06/2012 PLACIDO POWER BALLAST MACHINE OPERATOR, DONG R 784.91 POSTNASAL DRIP 02/06/2012 PLACIDO POWER BALLAST MACHINE OPERATOR, DONG R 786.2 COUGH 02/06/2012 PLACIDO POWER BALLAST MACHINE OPERATOR, DONG R 466.0 BRONCHITIS, ACUTE 02/06/2012 PLACIDO POWER BALLAST MACHINE OPERATOR, DONG R 784.91 POSTNASAL DRIP 02/06/2012 PLACIDO POWER BALLAST MACHINE OPERATOR, DONG R 786.2 COUGH 02/06/2012 ASHER POWER BALLAST MACHINE OPERATOR, DONAVON R 466.0 BRONCHITIS, ACUTE 02/06/2012 ASHER POWER BALLAST MACHINE OPERATOR, DONAVON R 784.91 POSTNASAL DRIP 02/06/2012 ASHER POWER BALLAST MACHINE OPERATOR, DONAVON R 786.2 COUGH 02/06/2012 SHANTE POWER BALLAST MACHINE OPERATOR, ANMOL S 466.0 BRONCHITIS, ACUTE 02/06/2012 SHANTE POWER BALLAST MACHINE OPERATOR, ANMOL S 784.91 POSTNASAL DRIP 02/06/2012 SHANTE POWER BALLAST MACHINE OPERATOR, ANMOL S 786.2 COUGH 02/06/2012 LEILANI HOLLINGSWORTH MD 466.0 BRONCHITIS, ACUTE 02/06/2012 LEILANI HOLLINGSWORTH MD 784.91 POSTNASAL DRIP 02/06/2012 LEILANI HOLLINGSWORTH MD 786.2 COUGH 02/06/2012 WADE DO, SOPHIE K 466.0 BRONCHITIS, ACUTE 02/06/2012 WADE DO, SOPHIE K 784.91 POSTNASAL DRIP 02/06/2012 WADE DO, SOPHIE K 786.2 COUGH 02/06/2012 ASHER POWER BALLAST MACHINE OPERATOR, DONAVON R 466.0 BRONCHITIS, ACUTE 02/06/2012 ASHER POWER BALLAST MACHINE OPERATOR, DONAVON R 784.91 POSTNASAL DRIP 02/06/2012 ASHER POWER BALLAST MACHINE OPERATOR, DONAVON R 786.2 COUGH 02/06/2012 WADE DO, SOPHIE K 466.0 BRONCHITIS, ACUTE 02/06/2012 WADE DO, SOPHIE K 784.91 POSTNASAL DRIP 02/06/2012 WADE DO, SOPHIE K 786.2 COUGH 02/06/2012 ASHER POWER BALLAST MACHINE OPERATOR, DONAVON R 466.0 BRONCHITIS, ACUTE 02/06/2012 ASHER POWER BALLAST MACHINE OPERATOR, DONAVON R 784.91 POSTNASAL DRIP 02/06/2012 ASHER POWER BALLAST MACHINE OPERATOR, DONAVON R 786.2 COUGH 02/06/2012 ASHER POWER BALLAST MACHINE OPERATOR, DONAVON R 466.0 BRONCHITIS, ACUTE 02/06/2012 ASHER POWER BALLAST MACHINE OPERATOR, DONAVON R 784.91 POSTNASAL DRIP 02/06/2012 ASHER POWER BALLAST MACHINE OPERATOR, DONAVON R 786.2 COUGH 02/06/2012 UDAY APRN, DANA A 466.0 BRONCHITIS, ACUTE 02/06/2012 UDAY POWER BALLAST MACHINE OPERATOR, DANA A 784.91 POSTNASAL DRIP 02/06/2012 UDAY AGUIAR, DANA A 786.2 COUGH 02/06/2012 WADE DO, SOPHIE K 466.0 BRONCHITIS, ACUTE 02/06/2012 WADE DO, SOPHIE K 784.91 POSTNASAL DRIP 02/06/2012 WADE DO, SOPHIE K 786.2 COUGH 02/06/2012 ASHER POWER BALLAST MACHINE OPERATOR, DONAVON R 466.0 BRONCHITIS, ACUTE 02/06/2012 ASHER POWER BALLAST MACHINE OPERATOR, DONAVON R 784.91 POSTNASAL DRIP 02/06/2012 ASHER POWER BALLAST MACHINE OPERATOR, DONAVON R 786.2 COUGH 02/06/2012 ASHER POWER BALLAST MACHINE OPERATOR, DONAVON R 466.0 BRONCHITIS, ACUTE 02/06/2012 ASHER POWER BALLAST MACHINE OPERATOR, DONAVON R 784.91 POSTNASAL DRIP 02/06/2012 ASHER POWER BALLAST MACHINE OPERATOR, DONAVON R 786.2 COUGH 02/06/2012 ASHER POWER BALLAST MACHINE OPERATOR, DONAVON R 466.0 BRONCHITIS, ACUTE 02/06/2012 ASHER POWER BALLAST MACHINE OPERATOR, DONAVON R 784.91 POSTNASAL DRIP 02/06/2012 ASHER POWER BALLAST MACHINE OPERATOR, DONAVON R 786.2 COUGH 02/13/2012 SOPHIE [...] K 702.11 INFLAMED SEBORRHEIC KERATOSIS 02/13/2012 ASHER POWER BALLAST MACHINE OPERATOR, DONAVON R 702.11 INFLAMED SEBORRHEIC KERATOSIS 02/13/2012 ASHER POWER BALLAST MACHINE OPERATOR, DONAVON R 702.11 INFLAMED SEBORRHEIC KERATOSIS 02/13/2012 UDAYHANNAH AGUIAR, DANA A 702.11 INFLAMED SEBORRHEIC KERATOSIS 02/13/2012 SHERI THOMPSON, SOPHIE K 702.11 INFLAMED SEBORRHEIC KERATOSIS 02/13/2012 ASHER POWER BALLAST MACHINE OPERATOR, DONAVON R 702.11 INFLAMED SEBORRHEIC KERATOSIS 02/13/2012 ASHER POWER BALLAST MACHINE OPERATOR, DONAVON R 702.11 INFLAMED SEBORRHEIC KERATOSIS 02/13/2012 ASHER POWER BALLAST MACHINE OPERATOR, DONAVON R 702.11 INFLAMED SEBORRHEIC KERATOSIS [...] DO, SOPHIE K 724.3 SCIATICA 05/27/2012 ASHER POWER BALLAST MACHINE OPERATOR, DONAVON R 530.81 ESOPHAGEAL REFLUX 05/27/2012 ASHER POWER BALLAST MACHINE OPERATOR, DONAVON R 724.3 SCIATICA 05/27/2012 WADE DO, SOPHIE K 530.81 ESOPHAGEAL REFLUX 05/27/2012 WADE DO, SOPHIE K 724.3 SCIATICA 05/27/2012 ASHER POWER BALLAST MACHINE OPERATOR, DONAVON R 530.81 ESOPHAGEAL REFLUX 05/27/2012 ASHER POWER BALLAST MACHINE OPERATOR, DONAVON R 724.3 SCIATICA 05/27/2012 ASHRE POWER BALLAST MACHINE OPERATOR, DONAVON R 530.81 ESOPHAGEAL REFLUX 05/27/2012 ASHER POWER BALLAST MACHINE OPERATOR, DONAVON R 724.3 SCIATICA 05/27/2012 UDAY POWER BALLAST MACHINE OPERATOR, DANA A 530.81 ESOPHAGEAL REFLUX 05/27/2012 UDAY POWER BALLAST MACHINE OPERATOR, DANA A 724.3 SCIATICA 05/27/2012 WADE DO, SOPHIE K 530.81 ESOPHAGEAL REFLUX 05/27/2012 WADE DO, SOPHIE K 724.3 SCIATICA 05/27/2012 ASHER POWER BALLAST MACHINE OPERATOR, DONAVON R 530.81 ESOPHAGEAL REFLUX 05/27/2012 ASHER POWER BALLAST MACHINE OPERATOR, DONAVON R 724.3 SCIATICA 05/27/2012 ASHER POWER BALLAST MACHINE OPERATOR, DONAVON R 530.81 ESOPHAGEAL REFLUX 05/27/2012 ASHER POWER BALLAST MACHINE OPERATOR, DONAVON R 724.3 SCIATICA 05/27/2012 ASHER POWER BALLAST MACHINE OPERATOR, DONAVON R 530.81 ESOPHAGEAL REFLUX 05/27/2012 ASHER POWER BALLAST MACHINE OPERATOR, DONAVON R 724.3 SCIATICA 06/16/2012 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 06/16/2012 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 06/16/2012 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 06/16/2012 WADE DO, SOPHIE K 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 06/16/2012 PLACIDO AGUIAR DONG 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 06/16/2012 PLACIDO AGUIAR DONG 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 06/16/2012 ASHER POWER BALLAST MACHINE OPERATOR, DONAVON 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 06/16/2012 ANMOL FREY APRN 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 06/16/2012 EDEL MULLINS, LEILANI 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 06/16/2012 SOPHIE WADE DO K 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 06/16/2012 ASHER POWER BALLAST MACHINE OPERATOR, DONAVON 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 06/16/2012 LON WADE DOA K 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 06/16/2012 ASHER POWER BALLAST MACHINE OPERATOR, DONAVON 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 06/16/2012 ASHER POWER BALLAST MACHINE OPERATOR, DONAVON 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 06/16/2012 DANA FRYE APRN A 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 06/16/2012 SOPHIE WADE DO K 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 06/16/2012 ASHER POWER BALLAST MACHINE OPERATOR, DONAVON 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 06/16/2012 ASHER POWER BALLAST MACHINE OPERATOR, DONAVON 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 06/16/2012 ASHER POWER BALLAST MACHINE OPERATOR, DONAVON 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 07/23/2012 [...] 726.5 ENTHESOPATHY OF HIP REGION 07/23/2012 ASHER POWER BALLAST MACHINE OPERATOR, DONAVON R 726.5 ENTHESOPATHY OF HIP REGION 07/23/2012 ASHER POWER BALLAST MACHINE OPERATOR, DONAVON R 726.5 ENTHESOPATHY OF HIP REGION 07/23/2012 ASHER POWER BALLAST MACHINE OPERATOR, DONAVON R 726.5 ENTHESOPATHY OF HIP REGION 08/29/2012 558.9 GASTROENTERITIS NONINFECTIOUS 08/29/2012 787.91 DIARRHEA 08/29/2012 WADE DO SOPHIE K 558.9 GASTROENTERITIS NONINFECTIOUS 08/29/2012 WADE DO, SOPHIE K 787.91 DIARRHEA 08/29/2012 PLACIDO POWER BALLAST MACHINE OPERATOR, DONG R 558.9 GASTROENTERITIS NONINFECTIOUS 08/29/2012 PLACIDO AGUIAR DOGN R 787.91 DIARRHEA 08/29/2012 PLACIDO AGUIAR DONG [...] DO SOPHIE K 787.91 DIARRHEA 08/29/2012 ASHER POWER BALLAST MACHINE OPERATOR, DONAVON R 558.9 GASTROENTERITIS NONINFECTIOUS 08/29/2012 ASHER POWER BALLAST MACHINE OPERATOR, DONAVON R 787.91 DIARRHEA 08/29/2012 WADE DO, SOPHIE K 558.9 GASTROENTERITIS NONINFECTIOUS 08/29/2012 WADE DO, SOPHIE K 787.91 DIARRHEA 08/29/2012 ASHER POWER BALLAST MACHINE OPERATOR, DONAVON R 558.9 GASTROENTERITIS NONINFECTIOUS 08/29/2012 ASHER POWER BALLAST MACHINE OPERATOR, DONAVON R 787.91 DIARRHEA 08/29/2012 ASHER POWER BALLAST MACHINE OPERATOR, DONAVON R 558.9 GASTROENTERITIS NONINFECTIOUS 08/29/2012 ASHER POWER BALLAST MACHINE OPERATOR, DONAVON R 787.91 DIARRHEA 08/29/2012 UDAY POWER BALLAST MACHINE OPERATOR, DANA A 558.9 GASTROENTERITIS NONINFECTIOUS 08/29/2012 UDAY POWER BALLAST MACHINE OPERATOR, DANA A 787.91 DIARRHEA 08/29/2012 WADE DO, SOPHIE K 558.9 GASTROENTERITIS NONINFECTIOUS 08/29/2012 WADE DO, SOPHIE K 787.91 DIARRHEA 08/29/2012 ASHER POWER BALLAST MACHINE OPERATOR, DONAVON R 558.9 GASTROENTERITIS NONINFECTIOUS 08/29/2012 ASHER POWER BALLAST MACHINE OPERATOR, DONAVON R 787.91 DIARRHEA 08/29/2012 ASHER POWER BALLAST MACHINE OPERATOR, DONAVON R 558.9 GASTROENTERITIS NONINFECTIOUS 08/29/2012 ASHER POWER BALLAST MACHINE OPERATOR, DONAVON R 787.91 DIARRHEA 08/29/2012 ASHER POWER BALLAST MACHINE OPERATOR, DONAVON R 558.9 GASTROENTERITIS NONINFECTIOUS 08/29/2012 ASHER POWER BALLAST MACHINE OPERATOR, DONAVON R 787.91 DIARRHEA 10/14/2012 SHERI [...] DO K 780.52 INSOMNIA UNSPECIFIED 12/11/2012 ASHER POWER BALLAST MACHINE OPERATOR, DONAVON R 692.9 CONTACT DERMATITIS AND OTHER ECZEMA UNSPECIFIED CAUSE 12/11/2012 ASHER POWER BALLAST MACHINE OPERATOR, DONAVON R 780.52 INSOMNIA UNSPECIFIED 12/11/2012 ASHER POWER BALLAST MACHINE OPERATOR, DONAVON R 692.9 CONTACT DERMATITIS AND OTHER ECZEMA UNSPECIFIED CAUSE 12/11/2012 ASHER POWER BALLAST MACHINE OPERATOR, DONAVON R 780.52 INSOMNIA UNSPECIFIED 12/11/2012 [...] K 462 ACUTE PHARYNGITIS 02/13/2013 ASHER SANTACRUZN, DNOAVON R 462 ACUTE PHARYNGITIS 02/13/2013 ASHER SANTACRUZN, DONAVON R 462 ACUTE PHARYNGITIS 02/13/2013 DANA FRYE APRN A 462 ACUTE PHARYNGITIS 02/13/2013 SOPHIE WADE DO K 462 ACUTE PHARYNGITIS 02/13/2013 ASHER SANTACRUZN, DONAVON R 462 ACUTE PHARYNGITIS 02/13/2013 ASHER SANTACRUZN, DONAVON R 462 ACUTE PHARYNGITIS 02/13/2013 ASHER SANTACRUZN, DONAVON R 462 ACUTE PHARYNGITIS 03/04/2013 CUMMINS POWER BALLAST MACHINE OPERATOR, DONG R 461.9 SINUSITIS ACUTE 03/04/2013 ASHER POWER BALLAST MACHINE OPERATOR, DONAVON R 461.9 SINUSITIS ACUTE 03/04/2013 ANMOL FREY APRN S 461.9 SINUSITIS ACUTE 03/04/2013 LEILANI HOLLINGSWORTH MD 461.9 SINUSITIS ACUTE 03/04/2013 SHERI THOMPSON, SOPHIE K 461.9 SINUSITIS ACUTE 03/04/2013 ASHER POWER BALLAST MACHINE OPERATOR, DONAVON R 461.9 SINUSITIS ACUTE 03/04/2013 SHERI THOMPSON, SOPHIE K 461.9 SINUSITIS ACUTE 03/04/2013 ASHER POWER BALLAST MACHINE OPERATOR, DONAVON R 461.9 SINUSITIS ACUTE 03/04/2013 ASHER POWER BALLAST MACHINE OPERATOR, DONAVON R 461.9 SINUSITIS ACUTE 03/04/2013 UDAY AGUIAR, DANA A 461.9 SINUSITIS ACUTE 03/04/2013 SHERI THOMPSON, SOPHIE K 461.9 SINUSITIS ACUTE 03/04/2013 ASHER POWER BALLAST MACHINE OPERATOR, DONAVON R 461.9 SINUSITIS ACUTE 03/04/2013 ASHER POWER BALLAST MACHINE OPERATOR, DONAVON R 461.9 SINUSITIS ACUTE 03/04/2013 ASHER POWER BALLAST MACHINE OPERATOR, DONAVON R 461.9 SINUSITIS ACUTE 05/11/2013 ASHER POWER BALLAST MACHINE OPERATOR, DONAVON R 719.47 PAIN- ANKLE 05/11/2013 ANMOL FREY APRN S 719.47 PAIN- ANKLE 05/11/2013 LEILANI HOLLINGSWORTH MD 719.47 PAIN- ANKLE 05/11/2013 SOPHIE WADE DO K 719.47 PAIN- ANKLE 05/11/2013 ASHER SANTACRUZN, DONAVON R 719.47 PAIN- ANKLE 05/11/2013 WADE LON THOMPSONA K 719.47 PAIN- ANKLE 05/11/2013 ASHER POWER BALLAST MACHINE OPERATOR, DONAVON R 719.47 PAIN- ANKLE 05/11/2013 ASHER POWER BALLAST MACHINE OPERATOR, DONAVON R 719.47 PAIN- ANKLE 05/11/2013 DANA FRYE APRN A 719.47 PAIN- ANKLE 05/11/2013 WADE LON THOMPSONA K 719.47 PAIN- ANKLE 05/11/2013 ASHER POWER BALLAST MACHINE OPERATOR, DONAVON R 719.47 PAIN- ANKLE 05/11/2013 ASHER SANTACRUZN, DONAVON R 719.47 PAIN- ANKLE 05/11/2013 ASHER POWER BALLAST MACHINE OPERATOR, DONAOVN R 719.47 PAIN- ANKLE 05/21/2013 ASHER AGUIAR, [...] AGUIAR DONAVON R 723.1 CERVICALGIA 09/14/2013 ASHER POWER BALLAST MACHINE OPERATOR, DONAVON R 789.00 ABDOMINAL PAIN UNSPECIFIED SITE 09/14/2013 ASHER POWER BALLAST MACHINE OPERATOR, DONAVON R 723.1 CERVICALGIA 09/14/2013 ASHER POWER BALLAST MACHINE OPERATOR, DONAVON R 789.00 ABDOMINAL PAIN UNSPECIFIED SITE 09/14/2013 UDAY POWER BALLAST MACHINE OPERATOR, DANA A 723.1 CERVICALGIA 09/14/2013 UDAY POWER BALLAST MACHINE OPERATOR, DANA A 789.00 ABDOMINAL PAIN UNSPECIFIED SITE 09/14/2013 SHERI THOMPSON SOPHIE K 723.1 CERVICALGIA 09/14/2013 SHERI DO SOPHIE K 789.00 ABDOMINAL PAIN UNSPECIFIED SITE 09/14/2013 ASHER POWER BALLAST MACHINE OPERATOR, DONAVON R 723.1 CERVICALGIA 09/14/2013 ASHER POWER BALLAST MACHINE OPERATOR, DONAVON R 789.00 ABDOMINAL PAIN UNSPECIFIED SITE 09/14/2013 ASHER POWER BALLAST MACHINE OPERATOR, DONAVON R 723.1 CERVICALGIA 09/14/2013 ASHER POWER BALLAST MACHINE OPERATOR, DONAVON R 789.00 ABDOMINAL PAIN UNSPECIFIED SITE 09/14/2013 ASHER SANTACRUZN, DONAVON R 723.1 CERVICALGIA 09/14/2013 ASHER POWER BALLAST MACHINE OPERATOR, DONAVON R 789.00 ABDOMINAL PAIN UNSPECIFIED [...] K 586 RENAL FAILURE UNSPECIFIED 11/03/2013 ASHER POWER BALLAST MACHINE OPERATOR, DONAVON R 586 RENAL FAILURE UNSPECIFIED 11/03/2013 ASHER POWER BALLAST MACHINE OPERATOR, DONAVON R 586 RENAL FAILURE UNSPECIFIED 11/03/2013 UDAY POWER BALLAST MACHINE OPERATOR, DANA A 586 RENAL FAILURE UNSPECIFIED 11/03/2013 WADE DO, SOPHIE K 586 RENAL FAILURE UNSPECIFIED 11/03/2013 ASHER POWER BALLAST MACHINE OPERATOR, DONAVON R 586 RENAL FAILURE UNSPECIFIED 11/03/2013 ASHER POWER BALLAST MACHINE OPERATOR, DONAVON R 586 RENAL FAILURE UNSPECIFIED 11/03/2013 ASHER POWER BALLAST MACHINE OPERATOR, DONAVON R 586 RENAL FAILURE UNSPECIFIED 12/15/2013 ASHER POWER BALLAST MACHINE OPERATOR, DONAVON R V76.51 COLON CANCER SCREENING 12/15/2013 UDAY AGUIAR, DANA A V76.51 COLON CANCER SCREENING 12/15/2013 LON WADE DOA K V76.51 COLON CANCER SCREENING 12/15/2013 ASHER POWER BALLAST MACHINE OPERATOR, DONAVON R V76.51 COLON CANCER SCREENING 12/15/2013 ASHER POWER BALLAST MACHINE OPERATOR, DONAVON R V76.51 COLON CANCER SCREENING 12/15/2013 ASHER POWER BALLAST MACHINE OPERATOR, DONAVON R V76.51 COLON CANCER SCREENING 01/07/2014 UDAY AGUIAR, DANA A V04.81 FLU SHOT 01/07/2014 LON WADE DOA K V04.81 FLU SHOT 01/07/2014 ASHER POWER BALLAST MACHINE OPERATOR, DONAVON R V04.81 FLU SHOT 01/07/2014 ASHER POWER BALLAST MACHINE OPERATOR, DONAVON R V04.81 FLU SHOT 01/07/2014 ASHER SANTACRUZN, DONAVON R V04.81 FLU SHOT 01/21/2014 DANA FRYE APRN A 625.9 PELVIC PAIN 01/21/2014 DANA FRYE APRN A V72.31 MOTOR TUNE UP SPECIALIST EXAM, ROUTINE 01/21/2014 SHERRY FRYE APRNIDI A V76.10 BREAST CANCER SCREENING 01/21/2014 UDAY AGUIAR DAAN A V82.81 SPECIAL SCREENING FOR OSTEOPOROSIS 01/21/2014 SHERI THOMPSON SOPHIE K 625.9 PELVIC PAIN 01/21/2014 WADE DO SOPHIE K V72.31 MOTOR TUNE UP SPECIALIST EXAM, ROUTINE 01/21/2014 LON WADE DOA K V76.10 BREAST CANCER SCREENING 01/21/2014 SHERI THOMPSON SOPHIE K V82.81 SPECIAL SCREENING FOR OSTEOPOROSIS 01/21/2014 ASHER POWER BALLAST MACHINE OPERATOR, DONAVON R 625.9 PELVIC PAIN 01/21/2014 ASHER POWER BALLAST MACHINE OPERATOR, DONAVON R V72.31 MOTOR TUNE UP SPECIALIST EXAM, ROUTINE 01/21/2014 ASHER POWER BALLAST MACHINE OPERATOR, DONAVON R V76.10 BREAST CANCER SCREENING 01/21/2014 ASHER POWER BALLAST MACHINE OPERATOR, DONAVON R V82.81 SPECIAL SCREENING FOR OSTEOPOROSIS 01/21/2014 ASHER POWER BALLAST MACHINE OPERATOR, DONAVON R 625.9 PELVIC PAIN 01/21/2014 ASHER POWER BALLAST MACHINE OPERATOR, DONAVON R V72.31 MOTOR TUNE UP SPECIALIST EXAM, ROUTINE 01/21/2014 ASHER POWER BALLAST MACHINE OPERATOR, DONAVON R V76.10 BREAST CANCER SCREENING 01/21/2014 ASHER POWER BALLAST MACHINE OPERATOR, DONAVON R V82.81 SPECIAL SCREENING FOR OSTEOPOROSIS 01/21/2014 ASHER POWER BALLAST MACHINE OPERATOR, DONAVON R 625.9 PELVIC PAIN 01/21/2014 ASHER POWER BALLAST MACHINE OPERATOR, DONAVON R V72.31 MOTOR TUNE UP SPECIALIST EXAM, ROUTINE 01/21/2014 ASHER POWER BALLAST MACHINE OPERATOR, DONAVON R V76.10 BREAST CANCER SCREENING 01/21/2014 ASHER POWER BALLAST MACHINE OPERATOR, DONAVON R V82.81 SPECIAL SCREENING FOR OSTEOPOROSIS 02/02/2014 RICCARDO RUIZ DO Ot 530.10 ESOPHAGITIS NOS 02/02/2014 RICCARDO RUIZ DO Ot 535.50 UNSP GASTRITIS GASTRODUODENITIS W/O ME 02/02/2014 RICCARDO RUIZ DO Ot 562.10 DIVERTICULOSIS COLON (W/O MENT OF HEMORR 02/23/2014 RICCARDO RUIZ DO Ot V72.84 02/23/2014 DONAVON STERLING R POWER BALLAST MACHINE OPERATOR Ot 789.00 02/23/2014 ASHER DONAVON R POWER BALLAST MACHINE OPERATOR Ot 789.00 02/24/2014 ASHER DONAVON R POWER BALLAST MACHINE OPERATOR Ot 562.10 02/24/2014 RICCARDO RUIZ DO Ot V72.84 02/24/2014 ASHER DONAVON R POWER BALLAST MACHINE OPERATOR Ot 789.00 02/24/2014 ASHER DONAVON R POWER BALLAST MACHINE OPERATOR Ot 789.00 02/24/2014 ASHER DONAVON R POWER BALLAST MACHINE OPERATOR Ot 562.10 03/09/2014 ASHER DONAVON R POWER BALLAST MACHINE OPERATOR Ot 562.10 03/09/2014 ASHER DONAVON R POWER BALLAST MACHINE OPERATOR Ot 789.00 03/29/2014 DANA FRYE POWER BALLAST MACHINE OPERATOR Ot 733.90 03/29/2014 UDAY DANA A POWER BALLAST MACHINE OPERATOR Ot V76.12 06/16/2014 ASHER AGUIAR, DONAVON [...] BY OBJ/PERSON NEC 01/14/2015 DONAVON STERLING R POWER BALLAST MACHINE OPERATOR Ot 562.10 01/14/2015 EDGERTON RICCARDO THOMPSON Ot V72.84 01/14/2015 DONAVON STERLING R POWER BALLAST MACHINE OPERATOR Ot 789.00 01/14/2015 SHERRY FRYEIDI A POWER BALLAST MACHINE OPERATOR Ot 733.90 01/14/2015 SHERRY FRYEIDI A POWER BALLAST MACHINE OPERATOR Ot V76.12 01/28/2015 DONAVON STERLING R POWER BALLAST MACHINE OPERATOR Ot 562.10 01/28/2015 EDGERTON RICCARDO THOMPSON Ot V72.84 01/28/2015 NEWTON STERLINGINA R POWER BALLAST MACHINE OPERATOR Ot 789.00 01/28/2015 UDAY DANA A POWER BALLAST MACHINE OPERATOR Ot 733.90 01/28/2015 UDAY DANA A POWER BALLAST MACHINE OPERATOR Ot V76.12 01/28/2015 NEWTON STERLINGINA R POWER BALLAST MACHINE OPERATOR Ot 562.10 01/28/2015 EDGERTON RICCARDO THOMPSON Ot V72.84 01/28/2015 NEWTON STERLINGINA R POWER BALLAST MACHINE OPERATOR Ot 789.00 01/28/2015 UDAY DANA A POWER BALLAST MACHINE OPERATOR Ot 733.90 01/28/2015 UDAY DANA A POWER BALLAST MACHINE OPERATOR Ot V76.12 03/31/2015 UDAY DANA A POWER BALLAST MACHINE OPERATOR Ot M85.80 03/31/2015 UDAY, DANA A POWER BALLAST MACHINE OPERATOR Ot Z12.31 03/31/2015 UDAY DANA A POWER BALLAST MACHINE OPERATOR Ot Z13.820 05/10/2015 SIMÓN MULLINS FAC, PHILLIP COTAP CCDS Ot E78.0 PURE HYPERCHOLESTEROLEMIA 05/10/2015 SIMÓN MULLINS FACC, PHILLIP FACP CCDS Ot I25.10 ATHSCL HEART DISEASE OF [place] CORONARY 05/10/2015 SIMÓN MULLINS FACC, PHILLIP FACP CCDS Ot I25.2 OLD MYOCARDIAL INFARCTION 05/10/2015 SIMÓN MULLINS FACC, ALI FACP CCDS Ot 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 05/10/2015 SIMÓN MULLINS FACC, ALI FACP CCDS Ot R07.89 OTHER CHEST PAIN 05/10/2015 SIMÓN MULLINS FACC, ALI FACP CCDS Ot R73.09 OTHER ABNORMAL GLUCOSE 05/10/2015 SIMÓN MULLINS FACC, [facility] FACP CCDS Ot Z79.899 OTHER LONG-TERM (CURRENT) DRUG THERAPY 06/02/2015 TEENA DELATORRE POWER BALLAST MACHINE OPERATOR Ot M54.6 06/02/2015 TEENA DELATORRE POWER BALLAST MACHINE OPERATOR Ot R07.81 06/02/2015 TEENA DELATORRE POWER BALLAST MACHINE OPERATOR Ot W19.XXXA 06/02/2015 TEENA DELATORRE POWER BALLAST MACHINE OPERATOR Ot Y99.8 06/07/2015 TEENA DELATORRE POWER BALLAST MACHINE OPERATOR Ot M54.6 06/07/2015 TEENA DELATORRE POWER BALLAST MACHINE OPERATOR Ot R07.81 06/07/2015 TEENA DELATORRE POWER BALLAST MACHINE OPERATOR Ot W19.XXXA 06/07/2015 TEENA DELATORRE POWER BALLAST MACHINE OPERATOR Ot Y99.8 06/21/2015 TEENA DELATORRE POWER BALLAST MACHINE OPERATOR Ot M54.6 06/21/2015 TEENA DELATORRE POWER BALLAST MACHINE OPERATOR Ot R07.81 06/21/2015 TEENA DELATORRE POWER BALLAST MACHINE OPERATOR Ot W19.XXXA 06/21/2015 TEENA DELATORRE POWER BALLAST MACHINE OPERATOR Ot Y99.8 07/20/2015 TEENA DELATORRE POWER BALLAST MACHINE OPERATOR Ot M54.6 PAIN IN THORACIC SPINE 07/20/2015 TEENA DELATORRE POWER BALLAST MACHINE OPERATOR Ot R07.81 PLEURODYNIA 07/20/2015 TEENA DELATORRE POWER BALLAST MACHINE OPERATOR Ot W19.XXXA UNSPECIFIED FALL, INITIAL ENCOUNTER 07/20/2015 TEENA DELATORRE POWER BALLAST MACHINE OPERATOR Ot Y99.8 OTHER EXTERNAL CAUSE STATUS 07/20/2015 TEENA DELATORRE POWER BALLAST MACHINE OPERATOR Ot M54.6 PAIN IN THORACIC SPINE 07/20/2015 TEENA DELATORRE POWER BALLAST MACHINE OPERATOR Ot R07.81 PLEURODYNIA 07/20/2015 TEENA DELATORRE POWER BALLAST MACHINE OPERATOR Ot W19.XXXA UNSPECIFIED FALL, INITIAL ENCOUNTER 07/20/2015 TEENA DELATORRE POWER BALLAST MACHINE OPERATOR Ot Y99.8 OTHER EXTERNAL CAUSE STATUS 09/12/2015 RAHEEM MARINO [employer] LEADER Ot G43.909 MIGRAINE, UNSP, NOT INTRACTABLE, WITHOUT 09/12/2015 RAHEEM MARINO [employer] LEADER Ot R22.0 LOCALIZED SWELLING, MASS AND LUMP, HEAD 09/12/2015 RAHEEM MARINO [facility] Ot Z01.812 ENCOUNTER FOR PREPROCEDURAL LABORATORY [...] SALEH MD Ot Y92.[address] IN [facility] NON-INSTITUT (PRIVATE 01/09/2016 JORDON SALEH MD Ot Y93.89 ACTIVITY, OTHER SPECIFIED 01/09/2016 JORDON SALEH MD, Ot Y99.8 OTHER EXTERNAL CAUSE STATUS 01/09/2016 JORDON SALEH MD, Ot Z79.899 OTHER LONG-TERM (CURRENT) DRUG THERAPY 01/10/2016 JORDON SALEH MD, [...] SALEH MD Ot Y92.[address] IN [facility] NON-INSTITUT (PRIVATE 01/10/2016 JORDON SALEH MD, Ot Y93.89 ACTIVITY, OTHER SPECIFIED 01/10/2016 JORDON SALEH MD, Ot Y99.8 OTHER EXTERNAL CAUSE STATUS 01/10/2016 JORDON SALEH MD, Ot Z79.899 OTHER MOLDER BENCH (CURRENT) DRUG THERAPY 03/12/2016 DONAVON STERLING POWER BALLAST MACHINE OPERATOR Ot 562.10 DIVERTICULOSIS COLON (W/O MENT OF HEMORR 03/12/2016 RICCARDO RUIZ DO Ot V72.84 EXAM PRE-OPERATIVE NOS 03/12/2016 DONAVON STERLING POWER BALLAST MACHINE OPERATOR Ot 789.00 ABDOMINAL PAIN, UNSPECIFIED SITE 03/12/2016 DANA FRYE POWER BALLAST MACHINE OPERATOR Ot 733.90 BONE CARTILAGE DIS NOS 03/12/2016 DANA FRYE POWER BALLAST MACHINE OPERATOR Ot V76.12 OTH SCREEN MAMMO-MALIGN NEOPLASM OF SONIA 03/12/2016 DANA FRYE POWER BALLAST MACHINE OPERATOR Ot M85.80 OTH DISRD OF BONE DENSITY AND STRUCTURE, 03/12/2016 DANA FRYE POWER BALLAST MACHINE OPERATOR Ot Z12.31 ENCNTR SCREEN MAMMOGRAM FOR MALIGNANT NE 03/12/2016 DANA FRYE POWER BALLAST MACHINE OPERATOR Ot Z13.820 ENCOUNTER FOR SCREENING FOR OSTEOPOROSIS 03/12/2016 TEENA DELATORRE POWER BALLAST MACHINE OPERATOR Ot M54.6 PAIN IN THORACIC SPINE 03/12/2016 TEENA DELATORRE POWER BALLAST MACHINE OPERATOR Ot R07.81 PLEURODYNIA 03/12/2016 TEENA DELATORRE POWER BALLAST MACHINE OPERATOR Ot W19.XXXA UNSPECIFIED FALL, INITIAL ENCOUNTER 03/12/2016 TEENA DELATORRE POWER BALLAST MACHINE OPERATOR Ot Y99.8 OTHER EXTERNAL CAUSE STATUS 03/12/2016 RAHEEM MARINOP Ot G43.909 MIGRAINE, UNSP, NOT INTRACTABLE, WITHOUT 03/12/2016 RAHEEM MARINOP Ot R22.0 LOCALIZED SWELLING, MASS AND LUMP, HEAD 03/12/2016 RAHEEM MARINOP Ot Z01.812 ENCOUNTER FOR PREPROCEDURAL LABORATORY E 03/12/2016 RAHEEM MARINOP Ot G43.909 MIGRAINE, UNSP, NOT INTRACTABLE, WITHOUT 03/12/2016 RAHEEM MARINO [employer] LE[employer]ER Ot R22.0 LOCALIZED SWELLING, MASS AND LUMP, HEAD 03/12/2016 RAHEEM MARINO [employer] LEADER Ot Z01.812 ENCOUNTER FOR PREPROCEDURAL LABORATORY E 03/13/2016 JANES PECK POWER BALLAST MACHINE OPERATOR Ot Z12.31 ENCNTR SCREEN MAMMOGRAM FOR MALIGNANT NE 03/14/2016 JANES PECK POWER BALLAST MACHINE OPERATOR Ot Z12.31 ENCNTR SCREEN MAMMOGRAM FOR MALIGNANT NE 03/14/2016 JANES PECK POWER BALLAST MACHINE OPERATOR Ot Z12.31 ENCNTR SCREEN MAMMOGRAM FOR [...] OF STOMACH AND DUODENUM 04/04/2016 RUIZ DO, RICCADRO D Ot K21.9 GASTRO-ESOPHAGEAL REFLUX DISEASE WITHOUT 04/04/2016 RUIZ DO, RICCARDO D Ot K29.50 UNSPECIFIED CHRONIC GASTRITIS WITHOUT BL 04/04/2016 RUIZ DO, RICCARDO D Ot K31.7 POLYP OF STOMACH AND DUODENUM 04/06/2016 JANES PECK APRN Ot Z12.31 ENCNTR SCREEN MAMMOGRAM FOR MALIGNANT NE 04/10/2016 RAHEEM MARINO Ot G43.909 MIGRAINE, UNSP, NOT INTRACTABLE, WITHOUT 04/10/2016 RAHEEM MARINO [employer] LEADER Ot R22.0 LOCALIZED SWELLING, MASS AND LUMP, HEAD 04/10/2016 RAHEEM MARINO Ot Z01.812 ENCOUNTER FOR PREPROCEDURAL LABORATORY E 05/21/2017 JANES PECK APRN Ot Z12.31 ENCNTR SCREEN MAMMOGRAM FOR MALIGNANT NE 05/21/2017 DONAVON STERLING POWER BALLAST MACHINE OPERATOR Ot 562.10 DIVERTICULOSIS COLON (W/O MENT OF HEMORR 05/21/2017 RICCARDO RUIZ DO Ot V72.84 EXAM PRE-OPERATIVE NOS 05/21/2017 DONAVON STERLING POWER BALLAST MACHINE OPERATOR Ot 789.00 ABDOMINAL PAIN, UNSPECIFIED SITE 05/21/2017 DANA FRYE POWER BALLAST MACHINE OPERATOR Ot 733.90 BONE CARTILAGE DIS NOS 05/21/2017 DANA FREY APRN Ot V76.12 OTH SCREEN MAMMO-MALIGN NEOPLASM OF SONIA 05/21/2017 DANA FRYE APRN Ot M85.80 OTH DISRD OF BONE DENSITY AND STRUCTURE, 05/21/2017 DANA FRYE POWER BALLAST MACHINE OPERATOR Ot Z12.31 ENCNTR SCREEN MAMMOGRAM FOR MALIGNANT NE 05/21/2017 DANA FRYE POWER BALLAST MACHINE OPERATOR Ot Z13.820 ENCOUNTER FOR SCREENING FOR OSTEOPOROSIS 05/21/2017 TEENA DELATORRE POWER BALLAST MACHINE OPERATOR Ot M54.6 PAIN IN THORACIC SPINE 05/21/2017 TEENA DELATORRE POWER BALLAST MACHINE OPERATOR Ot R07.81 PLEURODYNIA 05/21/2017 TEENA DELATORRE POWER BALLAST MACHINE OPERATOR Ot W19.XXXA UNSPECIFIED FALL, INITIAL ENCOUNTER 05/21/2017 TEENA DELATORRE POWER BALLAST MACHINE OPERATOR Ot Y99.8 OTHER EXTERNAL CAUSE STATUS 05/21/2017 RAHEEM MARINO Ot G43.909 MIGRAINE, UNSP, NOT INTRACTABLE, WITHOUT 05/21/2017 RAHEEM MARINOP Ot R22.0 LOCALIZED SWELLING, MASS AND LUMP, HEAD 05/21/2017 RAHEEM MARINOP Ot Z01.812 ENCOUNTER FOR PREPROCEDURAL LABORATORY E 05/21/2017 JANES PECK POWER BALLAST MACHINE OPERATOR Ot Z12.31 ENCNTR SCREEN MAMMOGRAM FOR MALIGNANT NE 05/21/2017 JANES PECK POWER BALLAST MACHINE OPERATOR Ot Z12.31 ENCNTR SCREEN MAMMOGRAM FOR MALIGNANT NE 05/22/2017 JANES PECK POWER BALLAST MACHINE OPERATOR Ot Z12.31 ENCNTR SCREEN MAMMOGRAM FOR MALIGNANT NE 06/03/2017 JANES PECK POWER BALLAST MACHINE OPERATOR Ot Z12.31 ENCNTR SCREEN MAMMOGRAM FOR MALIGNANT NE 06/05/2017 JANES PECK POWER BALLAST MACHINE OPERATOR Ot Z12.31 ENCNTR SCREEN MAMMOGRAM FOR MALIGNANT NE 06/25/2017 JANES PECK POWER BALLAST MACHINE OPERATOR Ot Z12.31 ENCNTR SCREEN MAMMOGRAM FOR MALIGNANT NE 09/30/2017 JANES PECK APRN Ot T84.89XA OTH COMP OF INTERNAL ORTHOPEDIC PROSTH D 09/30/2017 JANES PECK POWER BALLAST MACHINE OPERATOR Ot T84.89XA OTH COMP OF INTERNAL ORTHOPEDIC PROSTH D 09/30/2017 JANES PECK APRN Ot T84.84XA PAIN DUE TO INTERNAL ORTHOPEDIC PROSTH D 10/16/2017 RICCARDO RUIZ DO Ot D64.9 ANEMIA, UNSPECIFIED 10/16/2017 RICCARDO RUIZ DO Ot E11.40 TYPE 2 DIABETES MELLITUS WITH DIABETIC N 10/16/2017 RICCARDO RUIZ DO Ot E66.9 OBESITY, UNSPECIFIED 10/16/2017 RICCARDO RUIZ DO Ot E78.2 MIXED HYPERLIPIDEMIA 10/16/2017 RICCARDO RUIZ DO Ot E87.6 HYPOKALEMIA 10/16/2017 RICCARDO RUIZ DO Ot G43.909 MIGRAINE, UNSP, NOT INTRACTABLE, WITHOUT 10/16/2017 RICCARDO RUIZ DO Ot G47.9 SLEEP DISORDER, UNSPECIFIED 10/16/2017 RICCARDO RUIZ DO Ot 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 10/16/2017 RICCARDO RUIZ DO Ot I25.2 OLD MYOCARDIAL INFARCTION 10/16/2017 RICCARDO RUIZ DO Ot J45.909 UNSPECIFIED ASTHMA, UNCOMPLICATED 10/16/2017 RICCARDO RUIZ DO Ot K21.9 GASTRO-ESOPHAGEAL REFLUX DISEASE WITHOUT 10/16/2017 RICCARDO RUIZ DO Ot 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 10/16/2017 RICCARDO RUIZ DO Ot K57.92 DVTRCLI OF INTEST, PART UNSP, W/O PERF O 10/16/2017 RICCARDO RUIZ DO Ot K63.5 POLYP OF COLON 10/16/2017 RICCARDO RUIZ DO Ot M19.91 PRIMARY OSTEOARTHRITIS, UNSPECIFIED SITE 10/16/2017 RICCARDO RUIZ DO Ot M54.9 DORSALGIA, UNSPECIFIED 10/16/2017 RICCARDO RUIZ DO Ot N39.0 URINARY TRACT INFECTION, SITE NOT SPECIF 10/16/2017 RICCARDO RUIZ DO Ot Z68.30 BODY MASS INDEX (BMI) 30.0-30.9, ADULT 10/16/2017 RICCARDO RUIZ DO Ot Z79.01 LONG-TERM (CURRENT) USE OF ANTICOAGULANT 10/16/2017 RICCARDO RUIZ DO Ot Z79.84 MOLDER BENCH (CURRENT) USE OF ORAL HYPOGLYC 10/16/2017 RICCARDO RUIZ DO Ot Z86.19 PERSONAL HISTORY OF OTHER INFECTIOUS AND 10/16/2017 RICCARDO RUIZ DO Ot Z86.718 PERSONAL HISTORY OF OTHER VENOUS THROMBO 10/16/2017 RICCARDO RUIZ DO Ot Z87.891 PERSONAL HISTORY OF NICOTINE DEPENDENCE 10/16/2017 RICCARDO RUIZ DO Ot Z96.641 PRESENCE OF RIGHT ARTIFICIAL HIP JOINT 10/17/2017 JANES PECK Isaías POWER BALLAST MACHINE OPERATOR Ot T84.84XA PAIN DUE TO INTERNAL ORTHOPEDIC PROSTH D 12/27/2017 CISCO JANES Metz POWER BALLAST MACHINE OPERATOR Ot R07.89 OTHER CHEST PAIN 12/27/2017 JANES PECK Isaías POWER BALLAST MACHINE OPERATOR Ot W19.XXXA UNSPECIFIED FALL, INITIAL ENCOUNTER 01/01/2018 JANES PECK POWER BALLAST MACHINE OPERATOR Ot R07.89 OTHER CHEST PAIN 01/01/2018 PECKNIRAJJANES Isaías POWER BALLAST MACHINE OPERATOR Ot W19.XXXA UNSPECIFIED FALL, INITIAL ENCOUNTER 01/21/2018 PECK JANES Isaías POWER BALLAST MACHINE OPERATOR Ot R07.89 OTHER CHEST PAIN 01/21/2018 JANES PECK Isaías POWER BALLAST MACHINE OPERATOR Ot W19.XXXA UNSPECIFIED FALL, INITIAL ENCOUNTER 01/24/2018 RICCARDO RUIZ DO Ot Z01.818 ENCOUNTER FOR OTHER PREPROCEDURAL EXAMIN 01/27/2018 JANES PECK POWER BALLAST MACHINE OPERATOR Ot R07.89 OTHER CHEST PAIN 01/27/2018 JANES PECK POWER BALLAST MACHINE OPERATOR Ot W19.XXXA UNSPECIFIED FALL, INITIAL ENCOUNTER 01/29/2018 RICCARDO RUIZ DO Ot Z01.818 ENCOUNTER FOR OTHER PREPROCEDURAL EXAMIN Procedures Code [place] [address] UA LONG DIP 01/14/2012 19620 XRAY CHEST 2 VIEW 02/06/2012 13788 BIOPSY SKIN LESION (SINGLE) 02/13/2012 49377 SHAVE SKIN LESION 0.6-1.0 cm 02/13/201273255 TRIGGER POINT INJ/1-2 MUS 05/27/2012 NICKY SUE 05/27/2012 76469 JOINT INJECTION- LARGE JOINT (SPECIFY MEDCIN DESCRIPTION) 07/23/2012 64575 XRAY HIP RIGHT UNILATERAL MIN 2 VIEWS 07/23/2012 68207 STOOL FOR POLYS & LEUKOCYTES 09/01/2012 93900 CLOSTRIDIUM (C-DIFF) 09/02/2012 37229 CULTURE STOOL 09/02/2012 75210 STOOL FOR O & P 09/02/2012 65647 STREP A (IN-HOUSE) 02/13/2013 66580 XRAY ANKLE R COMP MIN, 3 VIEWS 05/11/2013 ORTHOPEDI DIMITRI FARLEY 05/21/2013 86054 UA LONG DIP 09/26/2013 42302 ROUTINE VENIPUNCTURE 09/28/2013 20823 CMP 09/28/2013 36038 CBC 09/28/2013 20044 SED/ESR RATE RML 09/28/2013 26341 CULTURE URINE 09/29/2013 20074 ROUTINE VENIPUNCTURE 10/30/2013 99633 CMP 10/30/2013 [id number] GFR CALC (RESULT ONLY) 10/30/2013 85343 CMP 10/30/[address] ABDOMEN & PELVIS W/ & W/ O CONTRAST 11/12/2013 GENERAL S RICCARDO RUIZ 11/12/2013 77635 UA W/ CULTURE IF INDICATED 11/12/2013 95510 ROUTINE VENIPUNCTURE 01/07/2014 17917 UA W/ CULTURE IF INDICATED 01/07/2014 G0008 FLU ADMINISTRATION ( MEDICARE ONLY) 01/07/2014 61061 CBC 01/07/2014 02321 CMP 01/07/2014 4396383 GFR CALC (RESULT ONLY) 01/07/2014 08666 US PELVIC COMPL (REFLEX CPT - 66886) 01/12/2014 95841 MAMMOGRAM, SCREENING 01/21/2014 24272 BONE DENSITY, DEXA 01/21/2014 76312 BONE MINERAL DENSITY, HEEL US (IN HOUSE) 01/21/2014 94922 XRAY PELVIS 1 OR 2 VIEWS 02/16/2014 [...] 11:40 Hemoglobin A1c 6.5 % 4.8-5.6 Thyroid Eldon Profile - 07/18/16 11:40 TSH 2.540 uIU/mL 0.450-4.500 TISSUE, 4 SPECIMENS - 05/13/17 16:01 A SOURCE NRG A GROSS DESCRIPTION NRG A DIAGNOSIS NRG CULTURE, URINE - 08/23/17 16:43 CULTURE, URINE, ROUTINE SEE NOTE NRG CULTURE, URINE - 08/27/17 11:26 CULTURE, URINE, ROUTINE SEE NOTE NRG CULTURE, GENITAL - 08/27/17 11:26 CULTURE, GENITAL SEE NOTE NRG [id number] - 09/27/17 10:07 Serum or plasma urea nitrogen measurement (mass/volume) 13 mg/dL 7-18 Serum or plasma creatinine measurement (mass/volume) 0.86 mg/dL 0.60-1.30 Serum or plasma urea nitrogen/creatinine mass ratio 15 NRG Serum or plasma creatinine measurement with calculation of estimated glomerular filtration rate > NRG Complete urinalysis with reflex to culture - 10/14/17 00:45 Urine color determination YELLOW NRG Urine clarity determination CLEAR NRG Urine pH measurement by test strip 7 5-9 Specific gravity of urine by test strip 1.005 1.016- 1.022 Urine protein assay by test strip, semi-quantitative NEGATIVE NEGATIVE Urine glucose detection by automated test strip NEGATIVE NEGATIVE Erythrocytes detection in urine sediment by light microscopy 1+ NEGATIVE Urine ketones detection by automated test strip 2+ NEGATIVE Urine nitrite detection by test strip NEGATIVE NEGATIVE Urine total bilirubin detection by test strip NEGATIVE NEGATIVE Urine urobilinogen measurement by automated test strip (mass/volume) NORMAL NORMAL Urine leukocyte esterase detection by dipstick 1+ NEGATIVE Automated urine sediment erythrocyte count by microscopy (number/high power field) [HPF] NRG Automated urine sediment leukocyte count by microscopy (number/high power field ) [HPF] NRG Bacteria detection in urine sediment by light microscopy TRACE NRG Squamous epithelial cells detection in urine sediment by light microscopy 5-10 NRG Crystals detection in urine sediment by light microscopy NONE NRG Casts detection in urine sediment by light microscopy NONE NRG Mucus detection in urine sediment by light microscopy NEGATIVE NRG Complete urinalysis with reflex to culture YES NRG Bacterial urine culture - 10/14/17 00:45 Bacterial urine culture RML NRG COLONY COUNT . NRG Complete blood count (CBC) with automated white blood cell (WBC) differential - 10/14/17 01:40 Blood leukocytes automated count (number/volume) 12.1 10*3/uL 4.3-11.0 Blood erythrocytes automated count (number/volume) 4.88 10*6/uL 4.35-5.85 Venous blood hemoglobin measurement (mass/volume) 12.6 g/dL 11.5-16.0 Blood hematocrit (volume fraction) 38 % 35-52 Automated erythrocyte mean corpuscular volume 78 [foz_us] 80-99 Automated erythrocyte mean corpuscular hemoglobin (mass per erythrocyte) 26 pg 25-34 Automated erythrocyte mean corpuscular hemoglobin concentration measurement ( mass/volume) 33 g/dL 32-36 Automated erythrocyte distribution width ratio 15.1 % 10.0-14.5 Automated blood platelet count (count/volume) 215 10*3/uL 130-400 Automated blood platelet mean volume measurement 8.9 [foz_us] 7.4-10.4 Automated blood neutrophils/100 leukocytes 72 % 42-75 Automated blood lymphocytes/100 leukocytes 18 % 12-44 Blood monocytes/100 leukocytes 10 % 0-12 Automated blood eosinophils/100 leukocytes 0 % 0-10 Automated blood basophils/100 leukocytes 0 % 0-10 Blood neutrophils automated count (number/volume) 8.8 10*3 1.8-7.8 Blood lymphocytes automated count (number/volume) 2.2 10*3 1.0-4.0 Blood monocytes automated count (number/volume) 1.2 10*3 0.0-1.0 Automated eosinophil count 0.0 10*3/uL 0.0-0.3 Automated blood basophil count (count/volume) 0.0 10*3/uL 0.0-0.1 Comprehensive metabolic panel - 10/14/17 01:40 Serum or plasma sodium measurement (moles/volume) 141 mmol/L 135-145 Serum or plasma potassium measurement (moles/volume) 3.8 mmol/L 3.6-5.0 Serum or plasma chloride measurement (moles/volume) 108 mmol/L 98-107 Carbon dioxide 22 mmol/L 21-32 Serum or plasma anion gap determination (moles/volume) 11 mmol/L 5-14 Serum or plasma urea nitrogen measurement (mass/volume) 9 mg/dL 7-18 Serum or plasma creatinine measurement (mass/volume) 0.82 mg/dL 0.60-1.30 Serum or plasma urea nitrogen/creatinine mass ratio 11 NRG Serum or plasma creatinine measurement with calculation of estimated glomerular filtration rate > NRG Serum or plasma glucose measurement (mass/volume) 111 mg/dL 70-105 Serum or plasma calcium measurement (mass/volume) 9.8 mg/dL 8.5-10.1 Serum or plasma total bilirubin measurement (mass/volume) 1.1 mg/dL 0.1-1.0 Serum or plasma alkaline phosphatase measurement (enzymatic activity/volume) 90 U/L 40-136 Serum or plasma aspartate aminotransferase measurement (enzymatic activity/ volume) 18 U/L 5-34 Serum or plasma alanine aminotransferase measurement (enzymatic activity/volume ) 12 U/L 0-55 Serum or plasma protein measurement (mass/volume) 7.5 g/dL 6.4-8.2 Serum or plasma albumin measurement (mass/volume) 4.3 g/dL 3.2-4.5 Serum or plasma amylase measurement (enzymatic activity/volume) - 10/14/17 01: 40 Serum or plasma amylase measurement (enzymatic activity/volume) 27 U /L 25-125 Lipase - 10/14/17 01:40 Lipase 22 U/L 8-78 Blood lactic acid measurement (moles/volume) - 10/14/17 02:15 Blood lactic acid measurement (moles/volume) 0.90 mmol/L 0.50-2.00 Bacterial blood culture - 10/14/17 02:15 Bacterial blood culture NG NRG Bacterial blood culture - 10/14/17 02:30 Bacterial blood culture NG NRG Complete blood count (CBC) with automated white blood cell (WBC) differential - 10/14/17 05:25 Blood leukocytes automated count (number/volume) 9.7 10*3/uL 4.3-11.0 Blood erythrocytes automated count (number/volume) 4.15 10*6/uL 4.35-5.85 Venous blood hemoglobin measurement (mass/volume) 10.6 g/dL 11.5-16.0 Blood hematocrit (volume fraction) 33 % 35-52 Automated erythrocyte mean corpuscular volume 79 [foz_us] 80-99 Automated erythrocyte mean corpuscular hemoglobin (mass per erythrocyte) 26 pg 25-34 Automated erythrocyte mean corpuscular hemoglobin concentration measurement ( mass/volume) 32 g/dL 32-36 Automated erythrocyte distribution width ratio 14.9 % 10.0-14.5 Automated blood platelet count (count/volume) 168 10*3/uL 130-400 Automated blood platelet mean volume measurement 9.4 [foz_us] 7.4-10.4 Automated blood neutrophils/100 leukocytes 66 % 42-75 Automated blood lymphocytes/100 leukocytes 23 % 12-44 Blood monocytes/100 leukocytes 10 % 0-12 Automated blood eosinophils/100 leukocytes 1 % 0-10 Automated blood basophils/100 leukocytes 0 % 0-10 Blood neutrophils automated count (number/volume) 6.4 10*3 1.8-7.8 Blood lymphocytes automated count (number/volume) 2.3 10*3 1.0-4.0 Blood monocytes automated count (number/volume) 0.9 10*3 0.0-1.0 Automated eosinophil count 0.1 10*3/uL 0.0-0.3 Automated blood basophil count (count/volume) 0.0 10*3/uL 0.0-0.1 Comprehensive metabolic panel - 10/14/17 05:25 Serum or plasma sodium measurement (moles/volume) 139 mmol/L 135-145 Serum or plasma potassium measurement (moles/volume) 3.3 mmol/L 3.6-5.0 Serum or plasma chloride measurement (moles/volume) 110 mmol/L 98-107 Carbon dioxide 21 mmol/L 21-32 Serum or plasma anion gap determination (moles/volume) 8 mmol/L 5-14 Serum or plasma urea nitrogen measurement (mass/volume) 9 mg/dL 7-18 Serum or plasma creatinine measurement (mass/volume) 0.74 mg/dL 0.60-1.30 Serum or plasma urea nitrogen/creatinine mass ratio 12 NRG Serum or plasma creatinine measurement with calculation of estimated glomerular filtration rate > NRG Serum or plasma glucose measurement (mass/volume) 128 mg/dL 70-105 Serum or plasma calcium measurement (mass/volume) 8.8 mg/dL 8.5-10.1 Serum or plasma total bilirubin measurement (mass/volume) 1.0 mg/dL 0.1-1.0 Serum or plasma alkaline phosphatase measurement (enzymatic activity/volume) 75 U/L 40-136 Serum or plasma aspartate aminotransferase measurement (enzymatic activity/ volume) 14 U/L 5-34 Serum or plasma alanine aminotransferase measurement (enzymatic activity/volume ) 9 U/L 0-55 Serum or plasma protein measurement (mass/volume) 6.1 g/dL 6.4-8.2 Serum or plasma albumin measurement (mass/volume) 3.6 g/dL 3.2-4.5 Automated blood complete blood count (hemogram) panel - 10/15/17 05:30 Blood leukocytes automated count (number/volume) 5.0 10*3/uL 4.3-11.0 Blood erythrocytes automated count (number/volume) 4.29 10*6/uL 4.35-5.85 Venous blood hemoglobin measurement (mass/volume) 11.5 g/dL 11.5-16.0 Blood hematocrit (volume fraction) 35 % 35-52 Automated erythrocyte mean corpuscular volume 80 [foz_us] 80-99 Automated erythrocyte mean corpuscular hemoglobin (mass per erythrocyte) 27 pg 25-34 Automated erythrocyte mean corpuscular hemoglobin concentration measurement ( mass/volume) 33 g/dL 32-36 Automated erythrocyte distribution width ratio 14.9 % 10.0-14.5 Automated blood platelet count (count/volume) 146 10*3/uL 130-400 Automated blood platelet mean volume measurement 9.6 [foz_us] 7.4-10.4 Whole blood basic metabolic panel - 10/15/17 05:30 Serum or plasma sodium measurement (moles/volume) 142 mmol/L 135-145 Serum or plasma potassium measurement (moles/volume) 3.7 mmol/L 3.6-5.0 Serum or plasma chloride measurement (moles/volume) 111 mmol/L 98-107 Carbon dioxide 23 mmol/L 21-32 Serum or plasma anion gap determination (moles/volume) 8 mmol/L 5-14 Serum or plasma urea nitrogen measurement (mass/volume) 7 mg/dL 7-18 Serum or plasma creatinine measurement (mass/volume) 0.85 mg/dL 0.60-1.30 Serum or plasma urea nitrogen/creatinine mass ratio 8 NRG Serum or plasma creatinine measurement with calculation of estimated glomerular filtration rate > NRG Serum or plasma glucose measurement (mass/volume) 118 mg/dL 70-105 Serum or plasma calcium measurement (mass/volume) 9.0 mg/dL 8.5-10.1 Complete blood count (CBC) with automated white blood cell (WBC) differential - 10/16/17 05:55 Blood leukocytes automated count (number/volume) 3.9 10*3/uL 4.3-11.0 Blood erythrocytes automated count (number/volume) 4.10 10*6/uL 4.35-5.85 Venous blood hemoglobin measurement (mass/volume) 10.8 g/dL 11.5-16.0 Blood hematocrit (volume fraction) 33 % 35-52 Automated erythrocyte mean corpuscular volume 80 [foz_us] 80-99 Automated erythrocyte mean corpuscular hemoglobin (mass per erythrocyte) 26 pg 25-34 Automated erythrocyte mean corpuscular hemoglobin concentration measurement ( mass/volume) 33 g/dL 32-36 Automated erythrocyte distribution width ratio 15.0 % 10.0-14.5 Automated blood platelet count (count/volume) 155 10*3/uL 130-400 Automated blood platelet mean volume measurement 9.5 [foz_us] 7.4-10.4 Automated blood neutrophils/100 leukocytes 75 % 42-75 Automated blood lymphocytes/100 leukocytes 11 % 12-44 Blood monocytes/100 leukocytes 6 % 0-12 Automated blood eosinophils/100 leukocytes 8 % 0-10 Automated blood basophils/100 leukocytes 0 % 0-10 Blood neutrophils automated count (number/volume) 2.9 10*3 1.8-7.8 Blood lymphocytes automated count (number/volume) 0.4 10*3 1.0-4.0 Blood monocytes automated count (number/volume) 0.3 10*3 0.0-1.0 Automated eosinophil count 0.3 10*3/uL 0.0-0.3 Automated blood basophil count (count/volume) 0.0 10*3/uL 0.0-0.1 Comprehensive metabolic panel - 10/16/17 05:55 Serum or plasma sodium measurement (moles/volume) 141 mmol/L 135-145 Serum or plasma potassium measurement (moles/volume) 3.1 mmol/L 3.6-5.0 Serum or plasma chloride measurement (moles/volume) 113 mmol/L 98-107 Carbon dioxide 22 mmol/L 21-32 Serum or plasma anion gap determination (moles/volume) 6 mmol/L 5-14 Serum or plasma urea nitrogen measurement (mass/volume) 5 mg/dL 7-18 Serum or plasma creatinine measurement (mass/volume) 0.81 mg/dL 0.60-1.30 Serum or plasma urea nitrogen/creatinine mass ratio 6 NRG Serum or plasma creatinine measurement with calculation of estimated glomerular filtration rate > NRG Serum or plasma glucose measurement (mass/volume) 120 mg/dL 70-105 Serum or plasma calcium measurement (mass/volume) 8.7 mg/dL 8.5-10.1 Serum or plasma total bilirubin measurement (mass/volume) 0.5 mg/dL 0.1-1.0 Serum or plasma alkaline phosphatase measurement (enzymatic activity/volume) 69 U/L 40-136 Serum or plasma aspartate aminotransferase measurement (enzymatic activity/ volume) 14 U/L 5-34 Serum or plasma alanine aminotransferase measurement (enzymatic activity/volume ) 9 U/L 0-55 Serum or plasma protein measurement (mass/volume) 5.6 g/dL 6.4-8.2 Serum or plasma albumin measurement (mass/volume) 3.2 g/dL 3.2-4.5 CMP - 10/21/17 12:25 GLUCOSE 96 mg/dL 65-99 UREA NITROGEN (BUN) 8 mg/dL 7-25 CREATININE 0.70 mg/dL 0.60-0.93 eGFR NON-AFR. SERBIAN 88 mL/min/1.73m2 > OR=60 eGFR 102 mL/min/1.73m2 > OR=60 BUN/CREATININE RATIO NOT APPLICABLE (calc) 6-22 SODIUM 141 mmol/L 135-146 POTASSIUM 3.8 mmol/L 3.5-5.3 CHLORIDE 107 mmol/L 98-110 CARBON DIOXIDE 28 mmol/L 20-31 CALCIUM 8.8 mg/dL 8.6-10.4 PROTEIN, TOTAL 6.4 g/dL 6.1-8.1 ALBUMIN 3.8 g/dL 3.6-5.1 GLOBULIN 2.6 g/dL (calc) 1.9-3.7 ALBUMIN/GLOBULIN RATIO 1.5 (calc) 1.0-2.5 BILIRUBIN, TOTAL 0.5 mg/dL 0.2-1.2 ALKALINE PHOSPHATASE 71 U/L 33-130 AST 19 U/L 10-35 ALT 15 U/L 6-29 LIVER PANEL (LFT) - 11/01/17 11:54 PROTEIN, TOTAL 7.2 g/dL 6.1-8.1 ALBUMIN 4.1 g/dL 3.6-5.1 GLOBULIN 3.1 g/dL (calc) 1.9-3.7 ALBUMIN/GLOBULIN RATIO 1.3 (calc) 1.0-2.5 BILIRUBIN, TOTAL 0.5 mg/dL 0.2-1.2 ALKALINE PHOSPHATASE 72 U/L 33-130 AST 16 U/L 10-35 ALT 8 U/L 6-29 BILIRUBIN, DIRECT 0.1 mg/dL < OR=0.2 BILIRUBIN, INDIRECT 0.4 mg/dL (calc) 0.2-1.2 Encounters ACCT No. Visit Date/Time Discharge Status Pt. Type Provider Facility Loc./Unit Complaint [id number] 06/16/2014 10:02:00 06/16/2014 23:59:59 CLS Outpatient DONAVON STERLING APRN [id number] 04/27/2014 10:22:00 04/27/2014 23:59:59 CLS Outpatient DONAVON STERLING APRN [id number] 04/12/2014 00:00:00 04/12/2014 23:59:59 CLS Outpatient DONAVON STERLING APRN R [id number] 02/16/2014 09:32:00 02/16/2014 23:59:59 CLS Outpatient SOPHIE WADE DO [id number] 02/16/2014 09:32:00 02/16/2014 23:59:59 CLS Outpatient DONAVON STERLING APRN [id number] 01/21/2014 08:52:00 01/21/2014 23:59:59 CLS Outpatient DANA FRYE APRN [id number] 11/12/2013 14:34:00 11/12/2013 23:59:59 CLS Outpatient DONAVON STERLING APRN R [id number] 11/12/2013 14:34:00 11/12/2013 23:59:59 CLS Outpatient DONAVON STERLING APRN [id number] 10/30/2013 13:51:00 10/30/2013 23:59:59 CLS Outpatient SOPHIE WADE DO [id number] 09/28/2013 13:01:00 09/28/2013 23:59:59 CLS Outpatient SOPHIE WADE DO [id number] 09/26/2013 14:02:00 09/26/2013 23:59:59 CLS Outpatient DONAVON STERLING APRN R [id number] 09/14/2013 11:15:00 09/14/2013 23:59:59 CLS Outpatient LEILANI HOLLINGSWORTH MD [id number] 05/21/2013 08:51:00 05/21/2013 23:59:59 CLS Outpatient DONAVON STERLING APRN R [id number] 05/11/2013 15:21:00 05/11/2013 23:59:59 CLS Outpatient ANMOL FREY APRN [id number] 03/04/2013 11:03:00 03/04/2013 23:59:59 CLS Outpatient PLACIDO SANTACRUZNSAMEERADONG R [id number] 02/13/2013 13:23:00 02/13/2013 23:59:59 CLS Outpatient PLACIDO SANTACRUZNSAMEERADONG R [id number] 12/11/2012 08:54:00 12/11/2012 23:59:59 CLS Outpatient SOPHIE WADE DO [id number] 06/16/2012 14:49:00 06/16/2012 23:59:59 CLS Outpatient [id number] 05/27/2012 14:59:00 05/27/2012 23:59:59 [place] [id number] 02/06/2012 15:28:00 02/06/2012 23:59:59 CLS Outpatient SOPHIE WADE DO [id number] 09/01/2012 11:08:00 Document Registration [id number] 07/23/2012 15:00:00 Document Registration [id number] 01/24/2018 05:47:00 01/24/2018 10:24:00 DIS Outpatient RICCARDO RUIZ DO [facility] PREOP COLONOSCOPY/EGD [id number] 12/26/2017 13:13:00 12/26/2017 23:59:59 CLS Outpatient JANES PECK POWER BALLAST MACHINE OPERATOR [facility] RAD OTHER CHEST PAIN R07.89 [id number] 10/14/2017 02:30:00 10/16/2017 13:40:00 DIS Inpatient RICCARDO RUIZ DO [facility] 4TH ACUTE DIVERTICULITIS; UTI [id number] 09/27/2017 09:57:00 09/27/2017 23:59:59 CLS Outpatient JANES PECK POWER BALLAST MACHINE OPERATOR [facility] RAD PAIN IN RIGHT HIP [id number] 06/04/2017 09:52:00 06/04/2017 23:59:59 CLS Outpatient JANES PECK POWER BALLAST MACHINE OPERATOR [facility] RAD Z12.31 SCREENING [id number] 03/27/2016 10:13:00 03/27/2016 18:30:00 DIS Outpatient RICCARDO RUIZ DO [facility] ZINA [id number] 03/22/2016 05:49:00 03/22/2016 11:18:00 DIS Outpatient RICCARDO RUIZ DO [facility] PREOP BARETTS [id number] 03/12/2016 14:33:00 03/12/2016 23:59:59 CLS Outpatient CISCO JANES R POWER BALLAST MACHINE OPERATOR [facility] RAD SCREENING [id number] 01/09/2016 19:30:00 01/09/2016 21:29:00 DIS Emergency JORDON SALEH MD [facility] ER FALL [id number] 08/17/2015 09:09:00 08/17/2015 23:59:59 CLS Outpatient RAHEEM MARINO [facility] RAD MIGRAINE WITHOUT STATUS MIGRAINOSUS LOCALIZED SWEL [id number] 06/01/2015 15:54:00 06/01/2015 23:59:59 CLS Outpatient TEENA DELATORRE POWER BALLAST MACHINE OPERATOR [facility] RAD UNSPECIFIED FALL INITIAL MID BACK PAIN RIB PAIN R [id number] 05/10/2015 07:01:00 05/10/2015 12:55:00 DIS Outpatient SIMÓN MULLINS FACC, PHILLIP BRANDON CCDS [facility] CATH CAD,ANGINA, FATIGUE [id number] 03/08/2015 10:37:00 03/08/2015 23:59:59 CLS Outpatient DANA FRYE POWER BALLAST MACHINE OPERATOR [facility] RAD SCREENING [id number] 11/22/2014 17:04:00 11/22/2014 19:37:00 DIS Emergency MARYBEL QUINN DO [facility] ER RT FOOT PAIN [id number] 03/04/2014 09:44:00 03/04/2014 23:59:59 CLS Outpatient DANA FRYE POWER BALLAST MACHINE OPERATOR [facility] RAD ROUTINE,OSTEO [id number] 02/02/2014 12:21:00 02/02/2014 15:35:00 DIS Outpatient RICCARDO RUIZ DO [facility] SDC ABDOMINAL PAIN; HX BARRETTS [id number] 01/27/2014 07:36:00 01/27/2014 23:59:59 CLS Outpatient RICCARDO RUIZ DO [facility] PREOP ABDOMINAL PAIN [id number] 01/08/2014 13:39:00 01/08/2014 23:59:59 CLS Outpatient DONAVON STERLING POWER BALLAST MACHINE OPERATOR [facility] RAD ABD PAIN [id number] 12/03/2013 08:48:00 12/03/2013 23:59:59 CLS Outpatient DONAVON STERLING POWER BALLAST MACHINE OPERATOR [facility] RAD ABD PAIN, PARTIAL HYSTERECTOMY [id number] 02/18/2018 08:45:00 PEN Preadmit RICCARDO RUIZ DO [facility] ENDO SCREENING/HX DIVERTICULTITIS/HX LUNA'S/ GERD [id number] 03/16/2016 18:05:00 Document Registration [id number] 07/19/2016 11:09:00 Document Registration [id number] 05/09/2016 15:14:00 Document Registration [id number] 10/21/2017 12:20:00 10/21/2017 23:59:59 [facility] [id number] 11/01/2017 10:30:00 Document Registration [id number] 10/21/2017 12:20:00 Document Registration [id number] 08/27/2017 09:40:00 Document Registration [id number] 08/23/2017 16:40:00 Document Registration [id number] 05/13/2017 15:00:00 Document Registration [id number] 05/13/2017 14:55:00 Document Registration
[2018-02-18] MEDS ORDERED: MIDAZOLAM 2 MG/2 ML (VERSED) VIAL ONE (09:30)
[2018-02-18] MEDS ORDERED: PROPOFOL INJECTION 50 ML IV ONE ×2 (09:30→09:57)
--- NOTE | 2018-02-18 09:33 | Progress Note-Pre Operative ---
Pre-Operative Progress Note H&P Reviewed The H&P was reviewed, patient examined and no changes noted. Date Seen by Provider: Feb 18, 2018 Time Seen by Provider: 09:32 Date H&P Reviewed: Feb 18, 2018 Time H&P Reviewed: 09:32 Pre-Operative Diagnosis: hx fry's, diverticulitis hx, gerd RICCARDO RUIZ DO Feb 18, 2018 09:33
[2018-02-18] MEDS ORDERED: fentaNYL INJECTION 100 MCG/2 ML AMP ONE (09:48)
--- NOTE | 2018-02-18 10:23 | Progress Note-Post Operative ---
Post-Operative Progess Note Surgeon (s)/Honey Blender (s) Surgeon RICCARDO RUIZ DO Honey Blender: na Pre-Operative Diagnosis hx fry's, diverticulitis hx, gerd Post-Operative Diagnosis duodenal polyps, gastritis, hiatal hernia, diverticulosis Procedure & Operative Findings Date of Procedure 02/18/18 Procedure Performed/Findings egd c biopsies, colonoscopy Anesthesia Type per radiology supervisor Estimated Blood Loss Estimated blood loss (mL): none Specimens/Packing Specimens Removed duodenal polyps x 2 antral bx ge junction x 4 RICCARDO RUIZ DO Feb 18, 2018 10:22
--- NOTE | 2018-02-18 10:29 | Discharge Inst-Simple/Standard ---
Discharge Inst-Standard Patient Instructions/Follow Up Plan of Care/Instructions/FU: 2 weeks jenifer Activity as Tolerated: Yes Discharge Diet: Regular Diet RICCARDO RUIZ DO Feb 18, 2018 10:29
[2018-02-18 10:35] VITALS: BP 158/81
[2018-02-18 10:55] VITALS: BP 124/85
--- NOTE | 2018-02-18 11:11 | Anesthesia-General Post-Op ---
MAC Patient Condition Mental Status/LOC: Same as Preop Cardiovascular: Satisfactory Nausea/Vomiting: Absent Respiratory: Satisfactory Pain: Controlled Complications: Absent Post Op Complications Complications None Follow Up Care/Instructions Patient Instructions None needed. Anesthesiology Discharge Order Discharge Order Patient is doing well, no complaints, stable vital signs, no apparent adverse anesthesia problems. No complications reported per nursing. SAMAN ELLIOTT CRNA Feb 18, 2018 11:11
[2018-02-18 11:15] VITALS: BP 125/82
--- NOTE | 2018-02-18 15:28 | OPERATIVE REPORT ---
DATE OF SERVICE: 02/18/2018 PREOPERATIVE DIAGNOSES: History of Means's, history of diverticulitis, gastroesophageal reflux disease. POSTOPERATIVE DIAGNOSES: Duodenal polyps, gastritis, hiatal hernia, diverticulosis. PROCEDURE: EGD with biopsies, colonoscopy. SURGEON: Riccardo Wilson DO ANESTHESIA: Per VACUUM APPLICATOR OPERATOR. ESTIMATED BLOOD LOSS: None. COMPLICATIONS: None. INDICATIONS: The patient is a 72-year-old female who has been having some issues with diverticulitis. She was recommended a colonoscopy. She also has history of Means's, which she was discussed the risks and benefits of EGD. The patient understands risks and benefits of procedures and she wished to proceed with procedure. Consent was signed in the chart. DESCRIPTION OF PROCEDURE: The patient was taken to the endoscopy suite, placed in left lateral recumbent position. Timeout was performed. Scope was inserted in the mouth, down the esophagus, stomach and into the duodenum without difficulty. There are no polyps, masses or ulcerations in the second portion of the duodenum. In the first portion of the duodenum, multiple polyps of varying sizes were present. Biopsy of 2 polyps were obtained. There are no masses or ulcerations. Scope was slowly retracted back into the stomach where it was further insufflated. Some gastritis appearance. Biopsy of the antrum was obtained. Scope was retroflexed noting a small hiatal hernia. No other pathology noted. Scope was returned to its normal position, slowly withdrawn to the distal esophagus with history of Means's. GE junction was obtained. Had a normal appearance, no polyps, masses or ulcerations, no erythematous changes. Scope was slowly retracted back to completely remove, noting no other pathology. Digital rectal exam was performed. There were no palpable polyps, mass or ulcerations. The scope was inserted in the rectum and advanced all the way to the cecum with minimal difficulty. Prep was adequate. Scope was then slowly retracted back. There were no polyps, masses or ulcerations in the cecum, ascending, transverse and descending colon. Within the sigmoid colon, there was a mild amount of diverticulosis. Scope was continuously retracted back the rectum, where it was also retroflexed noting no other pathology. Scope was returned to its normal position, slowly withdrawn until completely removed, noting no other pathology. The patient tolerated the procedure well without any complications. She was taken to the recovery room in stable condition. RECOMMENDATIONS: The patient will continue on current medications. We will have her follow up in the office in 2 weeks to discuss pathology results. The patient will need repeat colonoscopy in 10 years unless family history of colon cancer, history of polyps, which would then be 5 years. If she has any issues before that she should be seen at that time. Cc: Presley Soria APRN Job ID: [id number] DocumentID: [id number] Dictated Date: 02/18/2018 10:26:21 Parking Enforcement Manager Date: 02/18/2018 15:28:00 Dictated By: RICCARDO WILSON DO
== END 2018-02-18 11:15 | disposition home or self-care (01) ==
LOC: ENDO 07:47
PROVIDERS: ATTEND Surgery
DX: K57.30 Diverticulosis of large intestine without perforation or abscess without bleeding (principal); K21.9 Gastro-esophageal reflux disease without esophagitis; K44.9 Diaphragmatic hernia without obstruction or gangrene; K29.70 Gastritis, unspecified, without bleeding; K31.7 Polyp of stomach and duodenum; I25.119 Atherosclerotic heart disease of native coronary artery with unspecified angina pectoris; E11.40 Type 2 diabetes mellitus with diabetic neuropathy, unspecified; Z86.711 Personal history of pulmonary embolism; Z79.84 Long term (current) use of oral hypoglycemic drugs; Z79.899 Other long term (current) drug therapy

== ENCOUNTER → 2018-02-26 | Outpatient (CLI) | payer MEDICARE, MEDICAID ==
[~2018-02-26] MED LIST changes: +IOHEXOL 350 MG/ML 100 ML (OMNIPAQUE 350) VIAL IV ONE; +NS 250 ML (IVPB) BAG IV ONE; +RECEIVED CONTRAST (Hold Metformin) IV SCH
--- NOTE | 2018-02-26 15:08 | Diagnostic Imaging Report ---
PROCEDURE: CT abdomen and pelvis with contrast. TECHNIQUE: Multiple contiguous axial images were obtained through the abdomen and pelvis after administration of intravenous contrast. INDICATION: Abdominal pain. FINDINGS: There is linear atelectasis and/or scarring in the right lung base. Low density is seen throughout the liver indicating steatosis. Gallbladder is surgically absent. There is biliary ductal dilatation with common bile duct reaching 1.4 cm in diameter. No pancreatic, splenic, or adrenal gland lesion is identified. Kidneys reveal probable subcentimeter cyst in the mid portion on the left with normal bilateral contrast excretion. There is no free fluid within the abdomen or pelvis. The appendix is not visualized and likely absent. There are numerous diverticula in the sigmoid colon without evidence of associated inflammation. Partially opacified urinary bladder is within normal limits. There is no evidence of peritoneal free fluid. No pathologic adenopathy is identified. IMPRESSION: Hepatic steatosis with mild hiatal hernia noted in the upper abdomen. Sigmoid diverticular disease is present without evidence of acute inflammation. Dictated by: Dictated on workstation # [id number]
== END ==
LOC: RAD 14:00
PROVIDERS: ATTEND Nurse Practitioner Family
DX: K76.0 Fatty (change of) liver, not elsewhere classified (principal); K44.9 Diaphragmatic hernia without obstruction or gangrene; K57.30 Diverticulosis of large intestine without perforation or abscess without bleeding
CPT/HCPCS: 74177

== ENCOUNTER → 2022-09-04 | Outpatient (CLI) | payer MEDICARE, MEDICAID ==
[~2022-09-04] MED LIST changes: +CYCL10TA25 PO; -CYCL10TA9 PO; -IOHEXOL 350 MG/ML 100 ML (OMNIPAQUE 350) VIAL IV ONE; -MELA2.5T PO; +MELA2.5T16 PO; -NS 250 ML (IVPB) BAG IV ONE; +OXC5T PO; -OXYC-529 PO; +POTA-177 PO; -POTA10TA36 PO; -RECEIVED CONTRAST (Hold Metformin) IV SCH; -TRAM50TA2 PO; +TRM50T PO
== END ==
LOC: ORTHO 13:19
PROVIDERS: ATTEND Orthopaedic Surgery
DX: M54.32 Sciatica, left side (principal)
CPT/HCPCS: 99203